=== PATIENT | male | born 1940 | race Caucasian/White ===

== ENCOUNTER 2022-10-22 12:22 | Outpatient (OUT) | payer MEDICARE, OTHER, SELFPAY ==
[2022-10-22 13:05] LABS: Estimated Average Glucose 128 mg/dL; Glycohemoglobin A1C 6.1 % (4.5-6.2)
== END 2022-10-22 12:23 ==
LOC: LAB 12:30
PROVIDERS: PCP Family Medicine; Visit Provider Family Medicine
DX: E11.29 Type 2 diabetes mellitus with other diabetic kidney complication (principal)
CPT/HCPCS: 36415; 83036

== ENCOUNTER 2022-12-21 13:23 | Emergency (ER) | payer MEDICARE, OTHER, SELFPAY ==
[2022-12-21 13:44] VITALS: BP 105/56; PULSE 81; RESP 14; TEMP 36.8; O2SAT 95; BMI 40.2
[2022-12-21 15:06] LABS: Bilirubin Urine NEGATIVE (NEGATIVE); Blood Urine NEGATIVE (NEGATIVE); Clarity Urine CLEAR (CLEAR); Color Urine YELLOW (YELLOW); Glucose Urine UA NEGATIVE (NEGATIVE); Ketones Urine NEGATIVE (NEGATIVE); Leukocyte Esterase Urine NEGATIVE (NEGATIVE); Nitrite Urine NEGATIVE (NEGATIVE); Protein Urine NEGATIVE (NEG/TRACE); Specific Gravity Urine 1.025 (1.005-1.025); Urine Microscopic Indicated NO; Urobilinogen Urine 0.2 EU/dL (0.2-1.0); pH Urine 5.5 (5.0-9.0)
--- NOTE | 2022-12-21 15:54 | ED.GENADUL1 ---
HPI - General Adult General Chief complaint: Back Pain/Injury Stated complaint: BACK PAIN Time Seen by Provider: 12/21/22 14:30 Source: patient Mode of arrival: walk-in Limitations: no limitations History of Present Illness HPI narrative: Patient is a 82-year-old male who is presenting with vague right lower back pain. This pain started this afternoon when patient was in the front yard trying to pull a hose across the yard for his . Pain developed then, patient states the pain is mild to right upper lumbar area. Patient says the pain feels better when he pushes on the muscle. Patient has no saddle anesthesia or cauda equina. Patient has no history kidney stones. Patient is not constipated. Patient has no rash. Patient has no history of abdominal aneurysm. No acute complaints. . All systems are negative except as noted/marked. All systems reviewed and otherwise negative. . Nurses note and vital signs reviewed and patient is not hypoxic. General: The patient appears well and in no apparent distress. Patient is resting comfortably on cart. Patient is not toxic, lethargic, or listless Skin: Warm, dry, no pallor noted. There is no rash noted. No petechiae, purpura. Head: Normocephalic, atraumatic Eye: Normal conjunctiva, no drainage, EOMI. PERRL Ears, Nose, Mouth, and Throat: oral mucosa is moist. Nares patent. Mouth without vesicles. Cardiovascular: Regular Rate and Rhythm, no murmur, gallop, rub Respiratory: Patient is in no distress, no accessory muscle use, lungs are clear to auscultation, no wheezing, rales or rhonchi Back: Mild reproducible tenderness to palpation to the right paralumbar area from L1-L3. No rash. No pain over right Piriformis muscle. Negative straight leg raising test on the rightleg, no signs of saddle anesthesia or cauda equina.non-tender, no CVA tenderness bilaterally to percussion. No CT LS midline pain GI: soft, no tenderness to palpation, no masses appreciated. No rebound, guarding, or rigidity noted. No flank pain bilateral, No distention Musculoskeletal: Patient has full range of motion of all of the extremities, no motor, sensory, or focal neurological deficits Neurological: A&O x3, normal speech Psychiatric: Cooperative Related Data Previous Rx's Medication Instructions Recorded methocarbamol 500 mg tablet 500 mg PO Q8H PRN muscle pain #10 12/21/22 tabs Allergies Allergy/AdvReac Type Severity Reaction Status Date / Time Sulfa (Sulfonamide Allergy Verified 12/21/22 13:44 Antibiotics) PFSH PFSH Social History Smoking status: Never smoker Exam Constitutional Vital Signs, click to edit/add: Last Vital Signs Temp 98.2 F 12/21/22 13:44 Pulse 81 12/21/22 13:44 Resp 14 12/21/22 13:44 BP 105/56 12/21/22 13:44 Pulse Ox 95 12/21/22 13:44 O2 Del Method Room Air 12/21/22 13:44 Course Vital Signs Vital signs: Vital Signs Temperature 98.2 F 12/21/22 13:44 Pulse Rate 81 12/21/22 13:44 Respiratory Rate 14 12/21/22 13:44 Blood Pressure 105/56 12/21/22 13:44 Pulse Oximetry 95 12/21/22 13:44 Oxygen Delivery Method Room Air 12/21/22 13:44 Temperature 98.2 F 12/21/22 13:44 Pulse Rate 81 12/21/22 13:44 Respiratory Rate 14 12/21/22 13:44 Blood Pressure 105/56 12/21/22 13:44 Pulse Oximetry 95 12/21/22 13:44 Oxygen Delivery Method Room Air 12/21/22 13:44 Medical Decision Making MDM Narrative Medical decision making narrative: Patient has evidence of most likely muscle pain to lumbar area. Education was done on using ice, stretching, and [id number] medication for pain. Patient was sent home with prescription for muuscle relaxer use if needed. Patient has no acute indication for testing at this time. Patient's is also a patient in the Emergency Room for left leg cellulitis. Aching to her about the patient, she stated that he heard a appointment hose across a yard when he is bending over in this is not Common action for him. Patient will follow-up with PCP and formal physical therapy if needed. No questions at discharge. Lab Data Labs: Lab Results 12/21/22 Range/Units 14:55 Urine Color Yellow (YELLOW) Urine Clarity Clear (CLEAR) Urine pH 5.5 (5.0-9.0) Ur Specific [place] 1.025 (1.005-1.025) Urine Protein Negative (NEG/TRACE) mg/dL Urine Glucose (UA) Negative (NEGATIVE) mg/dL Urine Ketones Negative (NEGATIVE) mg/dL Urine Occult Blood Negative (NEGATIVE) Urine Nitrite Negative (NEGATIVE) Urine Bilirubin Negative (NEGATIVE) Urine Urobilinogen 0.2 (0.2-1.0) EU/dL Ur Leukocyte Esterase Negative (NEGATIVE) Discharge Plan Discharge Chief Complaint: Back Pain/Injury Clinical Impression: Right lumbar pain Patient Disposition: Home, Self-Care Condition: Fair Prescriptions / Home Meds: New methocarbamol 500 mg tablet 500 mg PO Q8H PRN (Reason: muscle pain) Qty: 10 0RF Instructions: Lower Back Exercises (ED) Additional Instructions: Ice 20 minutes on, 20 minutes off. Perform lumbar stretching exercises 3 times a day. Follow-up with PCP if no improvement for physical therapy if needed. Stand Alone Forms: Portal Instructions Referrals: Michel Lang MD [Primary Care Provider] - 1 week Discharge Date/Time: 12/21/22 16:10
== END 2022-12-21 16:10 | disposition home or self-care (01) ==
PROVIDERS: Emergency Provider Emergency Medicine; PCP Family Medicine
DX: M54.50 Low back pain, unspecified (principal)
CPT/HCPCS: 81003; 99283

== ENCOUNTER 2023-02-26 11:19 | Outpatient (OUT) | payer MEDICARE, OTHER, SELFPAY ==
[2023-02-26 11:41] LABS: Basophils Absolute Auto 0.1 10^3/uL (0.0-0.1); Basophils Percent Auto 0.7 % (0.2-2.0); Eosinophils Absolute Auto 0.2 10^3/uL (0.0-0.7); Eosinophils Percent Auto 2.3 % (0.9-7.0); Hematocrit 38.6 % (42.0-54.0); Hemoglobin 12.9 g/dL (14.0-18.0); Immature Granulocytes Abs Auto 0.03 10^3/uL (0.00-0.03); Immature Granulocytes Pct Auto 0.4 % (0.0-0.5); Lymphocytes Percent Auto 14.2 % (20.5-60.0); Mean Corpuscular HGB Conc 33.4 g/dL (29.9-35.2); Mean Corpuscular Hemoglobin 32.3 pg (25.9-34.0); Mean Corpuscular Volume 96.7 fL (80.0-94.0); Mean Platelet Volume 9.1 fL (9.5-13.5); Monocytes Absolute Auto 0.5 10^3/uL (0.3-0.8); Monocytes Percent Auto 7.7 % (1.7-12.0); Neutrophils Absolute Auto 5.1 10^3/uL (1.4-6.5); Neutrophils Percent Auto 74.7 % (43.0-75.0); Platelet Count 177 10^3/uL (150-450); Red Blood Count 3.99 10^6/uL (4.70-6.10); Red Cell Distribution Width 13.5 % (11.0-15.0); White Blood Count 6.9 10^3/uL (4.0-11.0)
[2023-02-26 12:07] LABS: Albumin Level 3.1 g/dL (3.4-5.0); Anion Gap 9.3; BUN Creatinine Ratio 12.6; Calcium 8.6 mg/dL (8.5-10.1); Carbon Dioxide 27.9 mmol/L (21.0-32.0); Chloride 105 mmol/L (98-107); Estimated GFR (African America 48 (>=60); Estimated GFR (Non-African Ame 40 (>=60); Glucose 158 mg/dL (74-106); Phosphorus 3.5 mg/dL (2.6-4.7); Potassium 4.2 mmol/L (3.5-5.1); Sodium 138 mmol/L (136-145)
== END 2023-02-26 11:20 | disposition home or self-care (01) ==
LOC: LAB 11:24
PROVIDERS: PCP Family Medicine
DX: I12.9 Hypertensive chronic kidney disease with stage 1 through stage 4 chronic kidney disease, or unspecified chronic kidney disease (principal); N18.32 Chronic kidney disease, stage 3b; E11.22 Type 2 diabetes mellitus with diabetic chronic kidney disease
CPT/HCPCS: 36415; 80069; 85025

== ENCOUNTER 2023-03-05 13:35 | Outpatient (OUT) | payer MEDICARE, OTHER, SELFPAY ==
[2023-03-05 14:15] LABS: Bilirubin Urine NEGATIVE (NEGATIVE); Blood Urine NEGATIVE (NEGATIVE); Clarity Urine CLEAR (CLEAR); Color Urine LT. YELLOW (YELLOW); Glucose Urine UA NEGATIVE (NEGATIVE); Ketones Urine NEGATIVE (NEGATIVE); Leukocyte Esterase Urine NEGATIVE (NEGATIVE); Nitrite Urine NEGATIVE (NEGATIVE); Protein Urine NEGATIVE (NEG/TRACE); Urobilinogen Urine 0.2 EU/dL (0.2-1.0)
[2023-03-05 14:22] LABS: Creatinine Urine Random 50.55 mg/dL (20.00-300.00); Microalbum Creatinine Ratio Ur 25.7 mg/g (0.0-29.9); Microalbumin Urine Random <1.3 mg/dL (<=30.0); Protein Creatinine Ratio Urine 0.12; Total Protein Urine Random <6.0 mg/dL (<=11.9)
== END 2023-03-05 13:36 | disposition home or self-care (01) ==
PROVIDERS: PCP Family Medicine
DX: N18.30 Chronic kidney disease, stage 3 unspecified (principal)
CPT/HCPCS: 81003; 82043; 82570; 84156

== ENCOUNTER 2023-07-09 11:30 | Emergency (ER) | payer MEDICARE, OTHER, SELFPAY ==
[2023-07-09 11:37] VITALS: BP 129/82; PULSE 75; RESP 18; TEMP 37.1; O2SAT 96; BMI 33.6
--- NOTE | 2023-07-09 11:46 | XR_ITS ---
The [address] [address] Patient Name: SAMPSON TAYLOR MRN: [id number] date: 1940 Sex: M Assigned Patient Location: ER Current Patient Location: ER Accession/Order Number: [id number] Exam Date: 07/09/2023 12:00 Report Date: 07/09/2023 12:25 At the request of: TONY AZEVEDO Procedure: XR chest 1V EXAMINATION: XR chest 1V HISTORY: cough , congestion COMPARISON: XR abdomen with PA chest 07/20/2022 FINDINGS: LUNGS: No significant pulmonary parenchymal abnormalities. Chronic calcified left hilar lymph node. VASCULATURE: No increased pulmonary vasculature. PLEURA: No pneumothorax, effusion, or pleural thickening. CARDIAC: No cardiomegaly or cardiac silhouette abnormality. MEDIASTINUM: No visible mass or adenopathy. BONES: No fracture or visible bone lesion. OTHER: Stable cardiac pacer and prior sternotomy. XR/XR chest 1V IMPRESSION: 1. No acute cardiopulmonary process. Stable chest. Electronically authenticated by: ANAYA ARREGUIN Date: 07/09/2023 12:25
[2023-07-09 12:16] LABS: Basophils Percent Auto 0.6 % (0.2-2.0); Eosinophils Absolute Auto 0.3 10^3/uL (0.0-0.7); Eosinophils Percent Auto 3.6 % (0.9-7.0); Hematocrit 40.1 % (42.0-54.0); Hemoglobin 13.1 g/dL (14.0-18.0); Immature Granulocytes Abs Auto 0.03 10^3/uL (0.00-0.03); Immature Granulocytes Pct Auto 0.4 % (0.0-0.5); Lymphocytes Absolute Auto 0.6 10^3/uL (1.2-3.8); Lymphocytes Percent Auto 8.3 % (20.5-60.0); Mean Corpuscular HGB Conc 32.7 g/dL (29.9-35.2); Mean Corpuscular Hemoglobin 31.4 pg (25.9-34.0); Mean Corpuscular Volume 96.2 fL (80.0-94.0); Mean Platelet Volume 9.3 fL (9.5-13.5); Monocytes Absolute Auto 0.7 10^3/uL (0.3-0.8); Monocytes Percent Auto 10.4 % (1.7-12.0); Neutrophils Absolute Auto 5.4 10^3/uL (1.4-6.5); Neutrophils Percent Auto 76.7 % (43.0-75.0); Platelet Count 145 10^3/uL (150-450); Red Blood Count 4.17 10^6/uL (4.70-6.10); Red Cell Distribution Width 13.7 % (11.0-15.0)
[2023-07-09 12:36] LABS: Alanine Aminotransferase 19 U/L (16-63); Albumin Globulin Ratio 0.8; Albumin Level 2.9 g/dL (3.4-5.0); Alkaline Phosphatase 133 U/L (46-116); Anion Gap 10.9; Aspartate Amino Transferase 19 U/L (15-37); Bilirubin Total 0.5 mg/dL (0.2-1.0); Calcium 8.6 mg/dL (8.5-10.1); Carbon Dioxide 30.2 mmol/L (21.0-32.0); Chloride 107 mmol/L (98-107); Estimated GFR (African America 56 (>=60); Estimated GFR (Non-African Ame 46 (>=60); Globulin 3.7 g/dL; Glucose 117 mg/dL (74-106); Potassium 4.1 mmol/L (3.5-5.1); Sodium 144 mmol/L (136-145); Total Protein 6.6 g/dL (6.4-8.2)
[2023-07-09 12:39] LABS: Troponin I High Sensitivity 14.1 pg/mL (4.0-76.1)
[2023-07-09 12:43] LABS: Influenza Virus A Antigen Negative; Influenza Virus B Antigen Negative; Internal Control Within Normal Limits
[2023-07-09 12:45] LABS: Internal Control Within Normal Limits; Respiratory Syncytial Virus Detected (NOT DETECTE)
--- NOTE | 2023-07-09 13:00 | ED.GENADUL1 ---
HPI - General Adult General Chief complaint: Upper Respiratory Infection Stated complaint: COUGH, CONGESTION Time Seen by Provider: 07/09/23 11:46 Source: patient Mode of arrival: walk-in History of Present Illness HPI narrative: This patient is here with his . She is the primary historian as this patient has very early and mild dementia. She is here to get checked out because little bit of sore throat and mild congestion. She says he has a runny nose. She has not noticed any difficulty breathing or shortness of breath severe cough or wheezing are all negative. He is up-to-date on COVID vaccinations. He has not not had nausea vomiting or diarrhea. His appetites been good activity levels been the same as usual. He is not complaining any chest pain or difficulty breathing. His vital signs are stable and he is afebrile here. He has not had any problems or symptoms with urination. He has not run a fever. He is on any antibiotics. She just want to check to make sure there is nothing serious today. Related Data Home Medications Medication Instructions Recorded Confirmed apixaban 2.5 mg tablet (Eliquis) 2.5 mg PO Q12H 07/09/23 07/09/23 atorvastatin 40 mg tablet 40 mg PO Q24H 07/09/23 07/09/23 furosemide 20 mg tablet 20 mg PO Q12H 07/09/23 07/09/23 gabapentin 300 mg capsule 300 mg PO Q12H 07/09/23 07/09/23 glimepiride 4 mg tablet 4 mg PO Q24H 07/09/23 07/09/23 isosorbide mononitrate 30 mg 30 mg PO Q24H 07/09/23 07/09/23 tablet,extended release 24 hr lisinopril 5 mg tablet 2.5 mg PO Q24H 07/09/23 07/09/23 metoprolol succinate 50 mg 50 mg PO Q24H 07/09/23 07/09/23 tablet,extended release 24 hr nitroglycerin 0.4 mg sublingual 0.4 mg sublingual PRN 07/09/23 07/09/23 tablet spironolactone 25 mg tablet 12.5 mg PO Q24H 07/09/23 07/09/23 tamsulosin 0.4 mg capsule 0.4 mg PO Q24H 07/09/23 07/09/23 Allergies Allergy/AdvReac Type Severity Reaction Status Date / Time Sulfa (Sulfonamide Allergy Verified 12/21/22 13:44 Antibiotics) PFSH PFS Social History Smoking status: Never smoker Exam Narrative Exam Narrative: Very pleasant awake alert oriented x 3. Subtle changes in cognition are noted. HEENT shows no pharyngitis. He has no conjunctivitis. There is no facial swelling. Lungs were clear with no wheeze rales rhonchi cough or congestion. Heart rate and rhythm are normal with no murmur or arrhythmia during auscultation. Abdomen is benign he has no abdominal discomfort. Legs and extremities show no evidence of peripheral edema phlebitis swelling or tenderness. Does not have any pain in his back area. Neurological he has no lateralizing neurological symptoms or deficit on the examination. Constitutional Vital Signs, click to edit/add: Last Vital Signs Temp 98.7 F 07/09/23 11:37 Pulse 75 07/09/23 11:37 Resp 18 07/09/23 11:37 BP 129/82 07/09/23 11:37 Pulse Ox 96 07/09/23 11:37 O2 Del Method Room Air 07/09/23 11:37 Course Vital Signs Vital signs: Vital Signs Temperature 98.7 F 07/09/23 11:37 Pulse Rate 75 07/09/23 11:37 Respiratory Rate 18 07/09/23 11:37 Blood Pressure 129/82 07/09/23 11:37 Pulse Oximetry 96 07/09/23 11:37 Oxygen Delivery Method Room Air 07/09/23 11:37 Temperature 98.7 F 07/09/23 11:37 Pulse Rate 75 07/09/23 11:37 Respiratory Rate 18 07/09/23 11:37 Blood Pressure 129/82 07/09/23 11:37 Pulse Oximetry 96 07/09/23 11:37 Oxygen Delivery Method Room Air 07/09/23 11:37 Medical Decision Making MDM Narrative Medical decision making narrative: Patient's chest x-ray does not show any acute findings. Laboratory testing essentially unremarkable. 1 positive finding is positive for RSV. His vital signs are stable and there is no respiratory distress and his pulse oximetry is normal. I do not believe he needs hospitalization at this time. All these findings will be discussed with his mentation Lungs: Including close follow-up will be discussed Lab Data Labs: Lab Results 07/09/23 07/09/23 Range/Units 12:00 12:20 WBC 7.0 (4.0-11.0) 10^3/uL RBC 4.17 L (4.70-6.10) 10^6/uL Hgb 13.1 L (14.0-18.0) g/dL Hct 40.1 L (42.0-54.0) % MCV 96.2 H (80.0-94.0) fL MCH 31.4 (25.9-34.0) pg MCHC 32.7 (29.9-35.2) g/dL RDW 13.7 (11.0-15.0) % Plt Count 145 L (150-450) 10^3/uL MPV 9.3 L (9.5-13.5) fL Neut % (Auto) 76.7 H (43.0-75.0) % Lymph % (Auto) 8.3 L (20.5-60.0) % Mcdonald % (Auto) 10.4 (1.7-12.0) % Eos % (Auto) 3.6 (0.9-7.0) % Baso % (Auto) 0.6 (0.2-2.0) % Neut # (Auto) 5.4 (1.4-6.5) 10^3/uL Lymph # (Auto) 0.6 L (1.2-3.8) 10^3/uL Mcdonald # (Auto) 0.7 (0.3-0.8) 10^3/uL Eos # (Auto) 0.3 (0.0-0.7) 10^3/uL Baso # (Auto) 0.0 (0.0-0.1) 10^3/uL Abs Immat Gran (auto) 0.03 (0.00-0.03) 10^3/uL Imm/Tot Granulo (auto) 0.4 (0.0-0.5) % Sodium 144 (136-145) mmol/L Potassium 4.1 (3.5-5.1) mmol/L Chloride 107 (98-107) mmol/L Carbon Dioxide 30.2 (21.0-32.0) mmol/L Anion Gap 10.9 BUN 19.0 H (7.0-18.0) mg/dL Creatinine 1.46 H (0.70-1.30) mg/dL Est GFR ( Amer) 56 L (>=60) Est GFR (Non-Af Amer) 46 L (>=60) BUN/Creatinine Ratio 13.0 Glucose 117 H (74-106) mg/dL Calcium 8.6 (8.5-10.1) mg/dL Total Bilirubin 0.5 (0.2-1.0) mg/dL AST 19 (15-37) U/L ALT 19 (16-63) U/L Alkaline Phosphatase 133 H (46-116) U/L Troponin I High Sens 14.1 (4.0-76.1) pg/mL Total Protein 6.6 (6.4-8.2) g/dL Albumin 2.9 L (3.4-5.0) g/dL Globulin 3.7 g/dL Albumin/Globulin Ratio 0.8 Influenza Type A Ag Negative Influenza Type B Ag Negative RSV Antigen Detected A* (NOT DETECTE) Discharge Plan Discharge Chief Complaint: Upper Respiratory Infection Clinical Impression: Respiratory syncytial virus (RSV) Patient Disposition: Home, Self-Care Time of Disposition Decision: 13:03 Prescriptions / Home Meds: No Action Eliquis 2.5 mg tablet 2.5 mg PO Q12H furosemide 20 mg tablet 20 mg PO Q12H gabapentin 300 mg capsule 300 mg PO Q12H glimepiride 4 mg tablet 4 mg PO Q24H lisinopril 5 mg tablet 2.5 mg PO Q24H atorvastatin 40 mg tablet 40 mg PO Q24H tamsulosin 0.4 mg capsule 0.4 mg PO Q24H isosorbide mononitrate 30 mg tablet extended release 24 hr 30 mg PO Q24H nitroglycerin 0.4 mg tablet, sublingual 0.4 mg sublingual PRN Rx Instructions: do not exceed 3 doses per episode spironolactone 25 mg tablet 12.5 mg PO Q24H metoprolol succinate 50 mg tablet extended release 24 hr 50 mg PO Q24H Additional Instructions: Continue present medication. Return if your oxygen decreases or you have difficulty breathing Stand Alone Forms: Portal Instructions Referrals: Michel Lang MD [Primary Care Provider] - 1 week
[2023-07-09 13:11] LABS: SARS-CoV-2 Ag NEGATIVE (NEGATIVE)
[2023-07-09 13:25] VITALS: BP 147/80; PULSE 72; RESP 14; O2SAT 97
== END 2023-07-09 13:29 | disposition home or self-care (01) ==
PROVIDERS: Emergency Provider Emergency Medicine Emergency Medical Services; PCP Family Medicine
DX: J06.9 Acute upper respiratory infection, unspecified (principal); B97.4 Respiratory syncytial virus as the cause of diseases classified elsewhere; F03.A0 Unspecified dementia, mild, without behavioral disturbance, psychotic disturbance, mood disturbance, and anxiety; Z79.899 Other long term (current) drug therapy
CPT/HCPCS: 36415; 71045; 80053; 84484; 85025; 87420; 87804; 87811; 99284

== ENCOUNTER 2023-08-27 11:37 | Outpatient (OUT) | payer MEDICARE, OTHER, SELFPAY ==
[2023-08-27 12:29] LABS: Basophils Percent Auto 0.4 % (0.2-2.0); Eosinophils Absolute Auto 0.2 10^3/uL (0.0-0.7); Hematocrit 42.1 % (42.0-54.0); Hemoglobin 13.7 g/dL (14.0-18.0); Immature Granulocytes Abs Auto 0.02 10^3/uL (0.00-0.03); Immature Granulocytes Pct Auto 0.3 % (0.0-0.5); Lymphocytes Absolute Auto 1.2 10^3/uL (1.2-3.8); Lymphocytes Percent Auto 15.6 % (20.5-60.0); Mean Corpuscular HGB Conc 32.5 g/dL (29.9-35.2); Mean Corpuscular Hemoglobin 31.2 pg (25.9-34.0); Mean Corpuscular Volume 95.9 fL (80.0-94.0); Mean Platelet Volume 9.5 fL (9.5-13.5); Monocytes Absolute Auto 0.6 10^3/uL (0.3-0.8); Monocytes Percent Auto 7.3 % (1.7-12.0); Neutrophils Absolute Auto 5.7 10^3/uL (1.4-6.5); Neutrophils Percent Auto 74.4 % (43.0-75.0); Platelet Count 194 10^3/uL (150-450); Red Blood Count 4.39 10^6/uL (4.70-6.10); Red Cell Distribution Width 13.6 % (11.0-15.0); White Blood Count 7.7 10^3/uL (4.0-11.0)
[2023-08-27 12:40] LABS: Estimated Average Glucose 126 mg/dL
[2023-08-27 14:07] LABS: Anion Gap 12.2; BUN Creatinine Ratio 17.4; Carbon Dioxide 28.2 mmol/L (21.0-32.0); Chloride 105 mmol/L (98-107); Estimated GFR (African America 48 (>=60); Estimated GFR (Non-African Ame 40 (>=60); Glucose 132 mg/dL (74-106); Potassium 4.4 mmol/L (3.5-5.1); Sodium 141 mmol/L (136-145)
[2023-08-27 14:08] LABS: Alanine Aminotransferase 25 U/L (16-63); Albumin Globulin Ratio 0.9; Albumin Level 3.3 g/dL (3.4-5.0); Alkaline Phosphatase 119 U/L (46-116); Aspartate Amino Transferase 21 U/L (15-37); Bilirubin Direct 0.1 mg/dL (0.0-0.2); Bilirubin Total 0.6 mg/dL (0.2-1.0); Calcium 9.5 mg/dL (8.5-10.1); Chol HDL Ratio 2.9; Cholesterol 123 mg/dL (<=200); Globulin 3.8 g/dL; HDL Cholesterol 42 mg/dL (40-60); LDL Cholesterol Calculated 61.6 mg/dL; Thyroid Stimulating Hormone 3.869 uIU/mL (0.358-3.740); Total Protein 7.1 g/dL (6.4-8.2); Triglycerides 97 mg/dL (<=150); VLDL CHOLESTEROL 19.4 mg/dL
[2023-08-27 14:33] LABS: Prostate Specific Antigen Scrn 0.95 ng/mL (<=4.00)
== END 2023-08-27 11:38 | disposition home or self-care (01) ==
LOC: LAB 11:39
PROVIDERS: PCP Family Medicine; Visit Provider Family Medicine
DX: I12.9 Hypertensive chronic kidney disease with stage 1 through stage 4 chronic kidney disease, or unspecified chronic kidney disease (principal); N18.30 Chronic kidney disease, stage 3 unspecified; E11.29 Type 2 diabetes mellitus with other diabetic kidney complication; Z79.899 Other long term (current) drug therapy; E78.5 Hyperlipidemia, unspecified; Z12.5 Encounter for screening for malignant neoplasm of prostate; E66.9 Obesity, unspecified
CPT/HCPCS: 36415; 80048; 80061; 80076; 81003; 82042; 82043; 82570; 83036; 84100; 84443; 85025; G0103

== ENCOUNTER 2023-08-27 11:40 | Outpatient (OUT) | payer MEDICARE, OTHER, SELFPAY ==
[2023-08-27 12:55] LABS: Bilirubin Urine NEGATIVE (NEGATIVE); Blood Urine NEGATIVE (NEGATIVE); Clarity Urine CLEAR (CLEAR); Color Urine YELLOW (YELLOW); Glucose Urine UA NEGATIVE (NEGATIVE); Ketones Urine TRACE mg/dL (NEGATIVE); Leukocyte Esterase Urine TRACE (NEGATIVE); Nitrite Urine NEGATIVE (NEGATIVE); Protein Urine NEGATIVE (NEG/TRACE); Urobilinogen Urine 0.2 EU/dL (0.2-1.0); pH Urine 5.5 (5.0-9.0)
[2023-08-27 13:21] LABS: Creatinine Urine Random 222.21 mg/dL (20.00-300.00); Microalbum Creatinine Ratio Ur 6.7 mg/g (0.0-29.9); Microalbumin Urine Random 1.5 mg/dL (<=30.0)
[2023-08-27 13:22] LABS: Albumin Level 3.2 g/dL (3.4-5.0); Phosphorus 4.1 mg/dL (2.6-4.7)
== END 2023-08-27 11:41 | disposition home or self-care (01) ==
LOC: LAB 11:42
PROVIDERS: PCP Family Medicine
DX: N18.30 Chronic kidney disease, stage 3 unspecified (principal)
CPT/HCPCS: 36415; 81003; 82042; 82043; 82570; 84100

== ENCOUNTER 2023-10-26 20:10 | Emergency (ER) | payer MEDICARE, OTHER, SELFPAY ==
--- NOTE | 2023-10-26 20:16 | CT_ITS ---
[address] [address] Patient Name: SAMPSON TAYLOR MRN: [id number] date: 1940 Sex: M Assigned Patient Location: ER Current Patient Location: ED.MAIN Accession/Order Number: [id number] Exam Date: 10/26/2023 21:27 Report Date: 10/26/2023 23:05 At the request of: WILLIAM MOHR Procedure: CT abdomen pelvis wo con EXAMINATION: CT abdomen pelvis wo con REASON FOR EXAM: Rectal bleeding COMPARISON: 03/10/2022 FINDINGS: Lung bases: No nodule, infiltrate, or effusion. Abdominal findings: Small hiatal hernia. No dilatation or thickening of stomach, duodenum, or small bowel. There is stool in the colon but no evidence of colitis or bowel obstruction. There is diverticulosis of the left colon. No diverticulitis. No free air or ascites. Small periumbilical hernia contains fat. There are gallstones without cholecystitis suggested. No significant enlargement of liver or spleen. No pancreatitis. The adrenal glands are normal. No urolithiasis or hydronephrosis. There is calcification of the abdominal aorta but normal caliber of the abdominal aorta. No adenopathy or hemorrhage in the retroperitoneum Pelvic findings: There is mild prostatomegaly. No distention of the urinary bladder. No adenopathy in the pelvis or inguinal regions. CT/CT abdomen pelvis wo con IMPRESSION: 1. Diverticulosis of the left colon without diverticulitis. 2. No enteritis or colitis. 3. No intestinal perforation. 4. Gallstones without cholecystitis. 5. No other acute inflammatory process in the abdomen or pelvis. 6. Prostatomegaly without evidence for urinary retention. Electronically authenticated by: YORDAN COLEMAN Date: 10/26/2023 23:05
[2023-10-26 20:17] VITALS: BP 119/56; PULSE 70; TEMP 36.8; O2SAT 98; BMI 27.1
--- NOTE | 2023-10-26 20:17 | ED.GENADUL1 ---
Documented by User: MCKENNA Martinez 10/26/23 22:27 HPI HPI - General Adult General Chief complaint: GI Bleed Stated complaint: rectal bleeding Time Seen by Provider: 10/26/23 20:16 History of Present Illness HPI narrative: Patient is an 83-year-old male who presents to the emergency department by ambulance for evaluation of rectal bleeding that began yesterday. He states he noticed red blood with a bowel movement. He has had no other focal medical complaints. Patient was under the impression that he was not taking any blood thinners but admits to taking the Eliquis that is on his medication list. He has not passed any clots. He has no abdominal pain, dizziness. He believes he has had a colonoscopy at [facility]. EMS noted blood in the toilet after the patient wiped after a bowel movement. Related Data Home Medications ?Medication ?Instructions ?Recorded ?Confirmed apixaban 2.5 mg tablet (Eliquis) 2.5 mg PO Q12H 07/09/23 07/09/23 atorvastatin 40 mg tablet 40 mg PO Q24H 07/09/23 07/09/23 furosemide 20 mg tablet 20 mg PO Q12H 07/09/23 07/09/23 gabapentin 300 mg capsule 300 mg PO Q12H 07/09/23 07/09/23 glimepiride 4 mg tablet 4 mg PO Q24H 07/09/23 07/09/23 isosorbide mononitrate 30 mg 30 mg PO Q24H 07/09/23 07/09/23 tablet,extended release 24 hr lisinopril 5 mg tablet 2.5 mg PO Q24H 07/09/23 07/09/23 metoprolol succinate 50 mg 50 mg PO Q24H 07/09/23 07/09/23 tablet,extended release 24 hr nitroglycerin 0.4 mg sublingual 0.4 mg sublingual PRN 07/09/23 07/09/23 tablet spironolactone 25 mg tablet 12.5 mg PO Q24H 07/09/23 07/09/23 tamsulosin 0.4 mg capsule 0.4 mg PO Q24H 07/09/23 07/09/23 Previous Rx's ?Medication ?Instructions ?Recorded hydrocortisone-pramoxine 1 %-1 % 1 applic MA TID #30 grams 10/26/23 rectal cream Allergies Allergy/AdvReac Type Severity Reaction Status Date / Time Sulfa (Sulfonamide Allergy Verified 10/26/23 20:21 Antibiotics) Opioid HPI Opioid Management Most Recent Opioid Data: No Data to Display Review of Systems ROS Constitutional Denies: fever or chills Ears, nose, mouth, and throat Denies: throat pain or nasal congestion Respiratory Denies: shortness of breath Gastrointestinal Denies: abdominal pain, nausea or vomiting Genitourinary Denies: painful urination Musculoskeletal Denies: back pain Integumentary/Breast Denies: rash Hematologic/Lymphatic Reports: easy bruising and easy [facility] Social History Smoking status: Never smoker Exam Narrative Exam Narrative: Gen.: Awake, alert, in no distress Head: Normocephalic, atraumatic ENT: Moist mucous membranes Respiratory: No respiratory distress, lungs clear bilaterally Cardio: Regular rate and rhythm Gastrointestinal: Abdomen is soft, nondistended and nontender to palpation Rectal: Rectal exam performed with Alice Rowley RN at bedside throughout the duration of the exam. Small hemorrhoid noted at the opening of the rectum, dried blood noted with no active hemorrhage. No fissures noted. No thrombosis of the hemorrhoid Extremities: Moves extremities equally Psych: Normal mood and affect Neuro: No focal neuro deficit Skin: Warm, dry, intact Constitutional Vital Signs, click to edit/add: Last Vital Signs Temp 98.2 F 10/26/23 20:17 Pulse 71 10/26/23 22:55 Resp 18 10/26/23 22:55 BP 107/66 10/26/23 22:55 Pulse Ox 96 10/26/23 22:55 O2 Del Method Room Air 10/26/23 22:55 Course Vital Signs Vital signs: Vital Signs Temperature 98.2 F 10/26/23 20:17 Pulse Rate 70 10/26/23 20:17 Respiratory Rate 16 10/26/23 20:17 Blood Pressure 119/56 10/26/23 20:17 Pulse Oximetry 98 10/26/23 20:17 Oxygen Delivery Method Room Air 10/26/23 20:17 Temperature 98.2 F 10/26/23 20:17 Pulse Rate 71 10/26/23 22:55 Respiratory Rate 18 10/26/23 22:55 Blood Pressure 107/66 10/26/23 22:55 Pulse Oximetry 96 10/26/23 22:55 Oxygen Delivery Method Room Air 10/26/23 22:55 Medical Decision Making MDM Narrative Medical decision making narrative: 2225: Physical exam with external hemorrhoid, no active hemorrhage in the ER. Patient is on Plavix and Eliquis. His vital signs are stable, he has no other focal medical complaints. Hemoglobin is stable and CT is pending at this time. Case turned over to attending physician at this time. Medical Records Medical records reviewed: Yes I reviewed the patient's medical records Lab Data Lab results reviewed: Yes I reviewed the patient's lab results Labs: Lab Results 10/26/23 Range/Units 20:32 WBC 8.7 (4.0-11.0) 10^3/uL RBC 3.87 L (4.70-6.10) 10^6/uL Hgb 12.3 L (14.0-18.0) g/dL Hct 36.8 L (42.0-54.0) % MCV 95.1 H (80.0-94.0) fL MCH 31.8 (25.9-34.0) pg MCHC 33.4 (29.9-35.2) g/dL RDW 13.9 (11.0-15.0) % Plt Count 189 (150-450) 10^3/uL MPV 9.3 L (9.5-13.5) fL Neut % (Auto) 71.8 (43.0-75.0) % Lymph % (Auto) 16.2 L (20.5-60.0) % [place] % (Auto) 8.6 (1.7-12.0) % Eos % (Auto) 2.3 (0.9-7.0) % Baso % (Auto) 0.6 (0.2-2.0) % Neut # (Auto) 6.2 (1.4-6.5) 10^3/uL Lymph # (Auto) 1.4 (1.2-3.8) 10^3/uL [place] # (Auto) 0.8 (0.3-0.8) 10^3/uL Eos # (Auto) 0.2 (0.0-0.7) 10^3/uL Baso # (Auto) 0.1 (0.0-0.1) 10^3/uL Abs Immat Gran (auto) 0.04 H (0.00-0.03) 10^3/uL Imm/Tot Granulo (auto) 0.5 (0.0-0.5) % PT 11.0 (9.0-11.6) sec INR 1.04 Sodium 140 (136-145) mmol/L Potassium 4.3 (3.5-5.1) mmol/L Chloride 105 (98-107) mmol/L Carbon Dioxide 28.7 (21.0-32.0) mmol/L Anion Gap 10.6 BUN 28.0 H (7.0-18.0) mg/dL Creatinine 1.78 H (0.70-1.30) mg/dL Est GFR ( Amer) 45 L (>=60) Est GFR (Non-Af Amer) 37 L (>=60) BUN/Creatinine Ratio 15.7 Glucose 100 (74-106) mg/dL Calcium 8.7 (8.5-10.1) mg/dL Imaging Data CT scan - abdomen: Radiologist's impression: ITS Impressions Abdomen/Pelvis CT 10/26/23 20:16 IMPRESSION: 1. Diverticulosis of the left colon without diverticulitis. 2. No enteritis or colitis. 3. No intestinal perforation. 4. Gallstones without cholecystitis. 5. No other acute inflammatory process in the abdomen or pelvis. 6. Prostatomegaly without evidence for urinary retention. Electronically authenticated by: YORDAN COLEMAN Date: 10/26/2023 23:02 Discharge Plan Discharge Stand Alone Forms: Portal Instructions Chief Complaint: GI Bleed Clinical Impression: External hemorrhoid Patient Disposition: Home, Self-Care Time of Disposition Decision: 23:05 Condition: Good Mode of Transportation: Private Vehicle Prescriptions / Home Meds: New hydrocortisone-pramoxine 1-1 % cream 1 applic MA TID Qty: 30 0RF No Action Eliquis 2.5 mg tablet 2.5 mg PO Q12H furosemide 20 mg tablet 20 mg PO Q12H gabapentin 300 mg capsule 300 mg PO Q12H glimepiride 4 mg tablet 4 mg PO Q24H lisinopril 5 mg tablet 2.5 mg PO Q24H atorvastatin 40 mg tablet 40 mg PO Q24H tamsulosin 0.4 mg capsule 0.4 mg PO Q24H isosorbide mononitrate 30 mg tablet extended release 24 hr 30 mg PO Q24H nitroglycerin 0.4 mg tablet, sublingual 0.4 mg sublingual PRN Rx Instructions: do not exceed 3 doses per episode spironolactone 25 mg tablet 12.5 mg PO Q24H metoprolol succinate 50 mg tablet extended release 24 hr 50 mg PO Q24H Print Language: Nigerien Instructions: Hemorrhoids (ED) Additional Instructions: Colace twice a day Referrals: Michel Lang MD [Primary Care Provider] - 1 week Documented by User: Henrik Guevara MD 10/26/23 23:08 HPI HPI - General Adult General Chief complaint: GI Bleed Stated complaint: rectal bleeding Time Seen by Provider: 10/26/23 20:16 Related Data Home Medications ?Medication ?Instructions ?Recorded ?Confirmed apixaban 2.5 mg tablet (Eliquis) 2.5 mg PO Q12H 07/09/23 07/09/23 atorvastatin 40 mg tablet 40 mg PO Q24H 07/09/23 07/09/23 furosemide 20 mg tablet 20 mg PO Q12H 07/09/23 07/09/23 gabapentin 300 mg capsule 300 mg PO Q12H 07/09/23 07/09/23 glimepiride 4 mg tablet 4 mg PO Q24H 07/09/23 07/09/23 isosorbide mononitrate 30 mg 30 mg PO Q24H 07/09/23 07/09/23 tablet,extended release 24 hr lisinopril 5 mg tablet 2.5 mg PO Q24H 07/09/23 07/09/23 metoprolol succinate 50 mg 50 mg PO Q24H 07/09/23 07/09/23 tablet,extended release 24 hr nitroglycerin 0.4 mg sublingual 0.4 mg sublingual PRN 07/09/23 07/09/23 tablet spironolactone 25 mg tablet 12.5 mg PO Q24H 07/09/23 07/09/23 tamsulosin 0.4 mg capsule 0.4 mg PO Q24H 07/09/23 07/09/23 Previous Rx's ?Medication ?Instructions ?Recorded hydrocortisone-pramoxine 1 %-1 % 1 applic MA TID #30 grams 10/26/23 rectal cream Allergies Allergy/AdvReac Type Severity Reaction Status Date / Time Sulfa (Sulfonamide Allergy Verified 10/26/23 20:21 Antibiotics) Opioid HPI Opioid Management Most Recent Opioid Data: No Data to Display [facility] Social History Smoking status: Never smoker Exam Constitutional Vital Signs, click to edit/add: Last Vital Signs Temp 98.2 F 10/26/23 20:17 Pulse 71 10/26/23 22:55 Resp 18 10/26/23 22:55 BP 107/66 10/26/23 22:55 Pulse Ox 96 10/26/23 22:55 O2 Del Method Room Air 10/26/23 22:55 Course Vital Signs Vital signs: Vital Signs Temperature 98.2 F 10/26/23 20:17 Pulse Rate 70 10/26/23 20:17 Respiratory Rate 16 10/26/23 20:17 Blood Pressure 119/56 10/26/23 20:17 Pulse Oximetry 98 10/26/23 20:17 Oxygen Delivery Method Room Air 10/26/23 20:17 Temperature 98.2 F 10/26/23 20:17 Pulse Rate 71 10/26/23 22:55 Respiratory Rate 18 10/26/23 22:55 Blood Pressure 107/66 10/26/23 22:55 Pulse Oximetry 96 10/26/23 22:55 Oxygen Delivery Method Room Air 10/26/23 22:55 Medical Decision Making [facility] Narrative Medical decision making narrative: 2225: Physical exam with external hemorrhoid, no active hemorrhage in the ER. Patient is on Plavix and Eliquis. His vital signs are stable, he has no other focal medical complaints. Hemoglobin is stable and CT is pending at this time. Case turned over to attending physician at this time. JK 11:[address] scan shows no acute findings. He is prescribed ProctoCream and is referred to surgery for follow-up if needed. He also will take Colace twice a day. Treatment diagnosis and follow-up were discussed with the patient and his family. Differential Diagnosis Differential Diagnosis: Internal hemorrhoid, external hemorrhoid, diverticulitis Lab Data Lab results reviewed: Yes I reviewed the patient's lab results Labs: Lab Results 10/26/23 Range/Units 20:32 WBC 8.7 (4.0-11.0) 10^3/uL RBC 3.87 L (4.70-6.10) 10^6/uL Hgb 12.3 L (14.0-18.0) g/dL Hct 36.8 L (42.0-54.0) % MCV 95.1 H (80.0-94.0) fL MCH 31.8 (25.9-34.0) pg MCHC 33.4 (29.9-35.2) g/dL RDW 13.9 (11.0-15.0) % Plt Count 189 (150-450) 10^3/uL MPV 9.3 L (9.5-13.5) fL Neut % (Auto) 71.8 (43.0-75.0) % Lymph % (Auto) 16.2 L (20.5-60.0) % [place] % (Auto) 8.6 (1.7-12.0) % Eos % (Auto) 2.3 (0.9-7.0) % Baso % (Auto) 0.6 (0.2-2.0) % Neut # (Auto) 6.2 (1.4-6.5) 10^3/uL Lymph # (Auto) 1.4 (1.2-3.8) 10^3/uL [place] # (Auto) 0.8 (0.3-0.8) 10^3/uL Eos # (Auto) 0.2 (0.0-0.7) 10^3/uL Baso # (Auto) 0.1 (0.0-0.1) 10^3/uL Abs Immat Gran (auto) 0.04 H (0.00-0.03) 10^3/uL Imm/Tot Granulo (auto) 0.5 (0.0-0.5) % PT 11.0 (9.0-11.6) sec INR 1.04 Sodium 140 (136-145) mmol/L Potassium 4.3 (3.5-5.1) mmol/L Chloride 105 (98-107) mmol/L Carbon Dioxide 28.7 (21.0-32.0) mmol/L Anion Gap 10.6 BUN 28.0 H (7.0-18.0) mg/dL Creatinine 1.78 H (0.70-1.30) mg/dL Est GFR ( Amer) 45 L (>=60) Est GFR (Non-Af Amer) 37 L (>=60) BUN/Creatinine Ratio 15.7 Glucose 100 (74-106) mg/dL Calcium 8.7 (8.5-10.1) mg/dL Imaging Data CT scan - abdomen: Radiologist's impression: ITS Impressions Abdomen/Pelvis CT 10/26/23 20:16
--- OUTSIDE RECORDS SUMMARY | 2023-10-26 20:20 | XMS_ITS ---
Patient Summarization (C-CDA 2.1 CCD) Created on: October 26, 2023 MR. JUNIOR TAYLOR : 1940 Sex: Male Author Organization Sample organization Care Team Providers Care Finance Director Name Role Phone Simon Souza Unavailable Michel Alcazar Primary Care Provider Daniel BROCK, Lakesha Hugo Unavailable MISC, DR ESPINO Consulting Unavailable NADERER, DR MICHEL Chandler Primary Care Unavailable MISC, DR ESPINO Attending Unavailable MISC, DR ESPINO Admitting Unavailable NADEREEnrike, DR MICHEL Chandler Consulting Unavailable NADERER, DR MICHEL Chandler Primary Care Unavailable NADERER, DR MICHEL Chandler Attending Unavailable NADERER, DR MICHEL Chandler Admitting Unavailable MISC, DR ESPINO Consulting Unavailable NADERER, DR MICHEL Chandler Primary Care Unavailable MISC, DR ESPINO Attending Unavailable MISC, DR ESPINO Admitting Unavailable PAY ., DR PIERRE Attending Unavailable PAY ., DR PIERRE Admitting Unavailable PAY ., DR PIERRE Consulting Unavailable NADERER, DR MICHEL Chandler Primary Care Unavailable OSEI, AZALIA Consulting Unavailable GRILLIS ., DR LISA Olivo Consulting Unavaila ble NADERER, DR MICHEL Chandler Primary Care Unavailable GRILLIS ., DR LISA Olivo Attending Unavaila ble GRILLIS ., DR LISA Olivo Admitting Unavaila ble PRESLEY II, GLORIA Consulting Unavailable SRINIVAS FELDER Consulting Unavailable GIORDANO ., DR DEVAUGHN Olivo Consulting Unavailable GIORDANO ., DR DEVAUGHN Olivo Attending Unavailable GIORDANO ., DR DEVAUGHN Olivo Admitting Unavailable NADEREEnrike, DR MICHEL Chandler Primary Care Unavailable JOLLY, DR TONY Heard Consulting Unavailhussein LEBLANC, DR QUIANA Guillen Consulting Unavailable LIZA PINTO Consulting Unavailable NADERER, DR MICHEL Chandler Consulting Unavailable NADEREEnrike, DR MICHEL Chandler Attending Unavailable NADERER, DR MICHEL Chandler Admitting Unavailable NADERER, DR MICHEL Chandler Primary Care Unavailable JANEEN MYERS Consulting Unavailable DARAMOLTHERESA Chandler Consulting Unavailable GRILLIS ., DR LISA Olivo Consulting Unavaila ble NADERER, DR MICHEL Chandler Primary Care Unavailable KENNETHILLIS ., DR LISA Olivo Attending Unavaila ble VIETS ., DR LISA Olivo Admitting Unavaila ble OTTONIEL, DR MICHLE Chandler Consulting Unavailable NADERER, DR MICHEL Chandler Primary Care Unavailable NADEREEnrike, DR MICHEL Chandler Attending Unavailable FRANCINEEREEnrike, DR MICHEL Chandler Admitting Unavailable Harley, Wolfidas B Unavailable Michel Alcazar Primary Care Provider Daniel BROCK, Lakesha N Unavailable Daniel BROCK, Lakesha N Unavailable Daniel BROCK, Lakesha N Unavailable Michel Alcazar Primary Care Provider [phone] OTTONIEL, MICHEL Chandler Primary Care Unavailable OTTONIEL, MICHEL Chandler Primary Care Unavailable OTTONIEL, MICHEL Chandler Primary Care Unavailable SAVANAH OLMOS Attending Unavailable OTTONIEL, MICHEL Chandler Primary Care Unavailable ROSSY WRIGHT Attending Unavailable NADEREEnrike, MICHEL Chandler Primary Care Unavailable DANIEL, LAKESHA Attending Unavailable LYLE DE LA ROSA Attending Unavailable OTTONIEL, MICHEL Chandler Primary Care Unavailable Allergies Allergy Classification Reported Allergen(s) Allergy Type Date of Onset Reaction(s) Facility (20 sources) Sulfonamides (Antibiotic); Translations: [SULFA (SULFONAMIDE ANTIBIOTICS)] Drug Intolerance [address] [facility] (20 sources) Iodinated Contrast Media; Translations: [IODINATED CONTRAST MEDIA] Propensity to adverse reactions to drug 7 Other: See Comments [facility] (1 source) Iodine (And Iodine Containting Drugs) Drug allergy (disorder) [facility] (1 source) Sulfonamides (Antibiotic) Drug allergy (disorder) [facility] Encounters Encounter Date Encounter Type Care Provider Facility Start: 09-03-2023 End: 09-03-2023 ambulatory MICHEL ALCAZAR Facility:[facility] Start: 09-03-2023 End: 09-03-2023 Patient encounter procedure Rossy Wright APRN.[employer]ER [employer] Work Phone: Kidney Medicine Comment on above: Stage 3b chronic kid mago disease (HCC) (Primary Dx); Type 2 diabetes mellitus with stage 3b chronic kidney disease, without long-term current use of insulin (HCC) Start: 07-31-2023 End: 07-31-2023 ambulatory MICHEL A NADERER Facility:[facility] Start: 07-31-2023 End: 07-31-2023 Patient encounter procedure Lakesha Sanchez MD Work Phone: Cardiology Comment on above: Coronary artery dise ase involving [place] coronary artery of [place] heart without angina pectoris (Primary Dx); Cardiomyopathy, ischemic; PAF (paroxysmal atrial fibrillation) (HCC); Chronic systolic heart failure (HCC); Obesity, morbid ([facility]) Start: 07-26-2023 Follow-up encounter Lyle hull MD Work Phone: [facility] Start: 07-26-2023 ICD Remote F/U Lyle Boyer MD Work Phone: [facility] Department Start: 07-22-2023 Telephone encounter Lakesha Ernst ot, MD Work Phone: Cardiology Comment on above: Received Outside Med [facility] Records Start: 03-27-2023 End: 03-27-2023 ambulatory MICHEL A NADERER Facility:[facility] Start: 03-27-2023 Follow-up encounter Lyle hull MD Work Phone: [facility] Start: 03-27-2023 End: 03-27-2023 Patient encounter procedure Lyle De La Rosa MD Work Phone: [facility] Department Comment on above: Cardiomyopathy, isch emic (Primary Dx) Start: 03-27-2023 End: 03-27-2023 ambulatory MICHEL A NADERER Facility:[facility] Start: 03-05-2023 Telephone encounter Savanah vazquez DO Work Phone: Kidney Medicine Comment on above: Results Start: 03-01-2023 End: 03-01-2023 ambulatory MICHEL A NADERER Facility:[facility] Start: 03-01-2023 End: 03-01-2023 Patient encounter procedure Savanah Olmos DO Work Phone: Kidney Medicine Comment on above: Stage 3b chronic kid mago disease (HCC) (Primary Dx); Type 2 diabetes mellitus with stage 3b chronic kidney disease, without long-term current use of insulin (HCC); Benign hypertension with chronic kidney disease, stage III (HCC); Hypoalbuminemia Start: 02-25-2023 Telephone encounter Rossy Wright APRN.[employer] Work Phone: Kidney Medicine Comment on above: lab orders faxed to [facility] Start: 01-25-2023 Follow-up encounter Niranjan lomeli MD Work Phone: [facility] Start: 01-25-2023 ICD Remote F/U Niranjan Chacko MD Work Phone: [facility] Start: 12-26-2022 Refill Lakeshapriya Mancilla Work Phone: Cardiology Comment on above: Refill Request (ator vastatin) Start: 08-13-2022 End: 08-13-2022 Patient encounter procedure Rossy Wright APRN.[employer] Work Phone: Kidney Medicine Comment on above: Benign hypertension with chronic kidney disease, stage III (HCC) (Primary Dx); Stage 3b chronic kidney disease (HCC); Type 2 diabetes mellitus with stage 3b chronic kidney disease, unspecified whether prison insulin use (HCC); Essential hypertension Start: 08-03-2022 Orders Only Bret Holder MD Work Phone: Cardiology Comment on above: Pacemaker (Primary D x); Chronic systolic congestive heart failure (HCC) Patient Question Start: 07-22-2022 End: 07-23-2022 Evaluation and management of inpatient DR MICHEL ALCAZAR Facility:[facility] Start: 07-20-2022 End: 07-20-[address] IGNACIO BENITEZ . Facility:[facility] Start: 07-18-2022 End: 07-18-[address] LISA APPLE . Facility:[facility] Start: 07-04-2022 Follow-up encounter Bret torres MD Work Phone: [facility] Start: 07-04-2022 End: 07-04-2022 Patient encounter procedure Bret Holder MD Work Phone: [facility] Comment on above: Coronary artery dise ase involving [place] coronary artery of [place] heart without angina pectoris (Primary Dx); Cardiomyopathy, ischemic; Bright red blood per rectum; S/P CABG (coronary artery bypass graft); ICD (implantable cardioverter-defibrillator) in place; Atrial fibrillation, chronic (HCC) Start: 07-03-2022 Telephone encounter Lakesha Ernst ot, MD Work Phone: Cardiology Comment on above: Received Outside Med ical Records Start: 06-26-2022 Orders Only Lakesha Mancilla Work Phone: Cardiology Comment on above: Cardiomyopathy, isch emic (Primary Dx); Chronic systolic congestive heart failure (HCC); Coronary artery disease involving [place] coronary artery of [place] heart without angina pectoris Start: 06-18-2022 Encounter for preprocedural laboratory examination DR LISA APPLE . [facility] Start: 06-16-2022 End: 06-17-[address] LISA APPLE . Facility:[facility] Start: 06-16-2022 End: 06-17-2022 Encounter for preprocedural laboratory examination DR LISA APPLE . Facility:[facility] Start: 05-23-2022 Telephone encounter Lakesha Ernst ot, MD Work Phone: Cardiology Comment on above: Request to hold Plav ix Start: 04-19-2022 Follow-up encounter Bret torres MD Work Phone: [facility] Start: 04-19-2022 ICD Remote F/U Bret Holder MD Work Phone: [facility] Start: 03-27-2022 End: 03-28-[address] MICHEL ALCAZAR Facility:[facility] Start: 03-23-2022 Telephone encounter Bret torres MD Work Phone: Cardiology Comment on above: Received Outside Med ical Records Start: 03-15-2022 Telephone encounter Geraldine Aguilar rdiology Comment on above: Patient Question Start: 03-12-2022 Telephone encounter Bret torres MD Work Phone: Cardiology Comment on above: Patient Update (Blee ding from rectum) Start: 03-10-2022 End: 03-12-2022 Evaluation and management of inpatient DR DEVAUGHN GIORDANO . Facility:[facility] Start: 02-09-2022 Follow-up encounter Bret torres MD Work Phone: [facility] Start: 02-09-2022 ICD Remote F/U Bret Holder MD Work Phone: [facility] Start: 02-08-2022 End: 02-09-[address] DOCTOR WAHL Facility:[facility] Start: 01-31-2022 Telephone encounter Rossy Loraine Wright APRN.[employer]ER [employer] Work Phone: [facility] [place] Comment on above: Lab Orders Start: 01-12-2022 Telephone encounter Lakesha Ernst ot, MD Work Phone: Cardiology Comment on above: Future Appointment Start: 01-08-2022 Telephone encounter Bret torres MD Work Phone: Cardiology Comment on above: Established Patient Follow-Up; Future Appointment Start: 12-29-2021 Follow-up encounter Bret torres MD Work Phone: [facility] Start: 12-29-2021 ICD Remote F/U Bret Holder MD Work Phone: [facility] Start: 12-29-2021 Refill Lakesha Mancilla Work Phone: Cardiology Comment on above: Refill Request (clop idogrel) Start: 12-21-2021 Follow-up encounter Bret torres MD Work Phone: [facility] Start: 12-21-2021 Patient encounter procedure Bret Holder MD Work Phone: [facility] Start: 12-19-2021 Telephone encounter Bret torres MD Work Phone: Cardiology Comment on above: Appointment Start: 12-18-2021 Follow-up encounter Bret torres MD Work Phone: [facility] Start: 12-18-2021 ICD Remote F/U Bret Holder MD Work Phone: [facility] Start: 12-13-2021 Follow-up encounter Bret torres MD Work Phone: [facility] Start: 12-13-2021 ICD Remote F/U Bret Holder MD Work Phone: [facility] Start: 11-30-2021 Follow-up encounter Bret torres MD Work Phone: [facility] Start: 11-30-2021 Patient encounter procedure Bret Holder MD Work Phone: [facility] Start: 11-06-2021 Orders Only La Nena Farrell nd LOAN COUNSELOR.CONTAINER [employer]ELDER Work Phone: Cardiology Comment on above: Cardiomyopathy, isch emic (Primary Dx) Start: 11-01-2021 Telephone encounter Bret torres MD Work Phone: Cardiology Comment on above: Courtesy Call (Surve y ) Start: 10-31-2021 Follow-up encounter Bret torres MD Work Phone: [facility] Start: 10-31-2021 ICD Remote F/U Bret Holder MD Work Phone: [facility] Start: 10-23-2021 Follow-up encounter Bret torres MD Work Phone: [facility] Start: 10-23-2021 ICD Remote F/U Bret Holder MD Work Phone: [facility] Start: 10-20-2021 ambulatory Apolonia Diaz RN NURSE MUSEUM PREPARATOR Comment on above: Information Start: 10-18-2021 Follow-up encounter Bret torres MD Work Phone: [facility] Start: 10-18-2021 Patient encounter procedure Bret Holder MD Work Phone: [facility] Start: 10-17-2021 ambulatory Penelope berry Comment on above: Patient Education Start: 10-04-2021 Follow-up encounter Bret torres MD Work Phone: [facility] Start: 10-04-2021 End: 10-04-2021 Patient encounter procedure Bret Holder MD Work Phone: [facility] Comment on above: Cardiomyopathy, isch emic (Primary Dx); Chronic systolic congestive heart failure (HCC); Coronary artery disease involving [place] coronary artery of [place] heart without angina pectoris Start: 09-28-2021 Follow-up encounter Bret torres MD Work Phone: [facility] Start: 09-28-2021 ICD Remote F/U Bret Holder MD Work Phone: [facility] Start: 09-19-2021 End: 09-20-[address] MICHEL ALCAZAR Facility:[facility] Start: 08-29-2021 Follow-up encounter Bret torres MD Work Phone: [facility] Start: 08-29-2021 ICD Remote F/U Bret Holder MD Work Phone: [facility] Start: 08-10-2021 End: 08-11-[address] DOCTOR WAHL Facility:[facility] Medical Equipment Procedure Code Equipment Code Equipment Origin al Text Equipment Identifier Dates once daily. USE TO TEST BLOOD SUGAR DAILY [id number] Start: 06-26-2022 Comment on above: once daily. USE TO T EST BLOOD SUGAR DAILY [id number] [place] [id number] Start: 10-18-2021 Goals Date Patient Goal Desired Activity /State Personal health goal Immunizations Immunization Date Immunization Notes Care Provider [facility] 02-13-2022 influenza virus vacc ine, unspecified formulation Niranjan Chacko MD Work Phone: [facility] Medications Current Medications Medication Drug Class(es) Dates Sig (Normalized) Sig (Original) apixaban 2.5 mg oral tablet (20 sources) Factor Xa Inhibitor Start: 03-21-2023 take 1 tablet by mouth twice daily ELIQUIS 2.5 mg tab(s) take 1 tablet by mouth twice daily 180 tablet 3 03/21/2023 Active Start: 01-01-2022 take 1 tablet by patel twice daily apixaban (ELIQUIS) 2.5 mg tab(s) Take 1 tablet by mouth twice daily. 180 tablet 3 01/01/2022 Active Comment on above: Take 1 tablet by patel th twice daily. take 1 tablet by patel th twice daily atorvastatin 40 mg oral tablet (20 sources) HMG-CoA Reductase Inhibitor Start: 1 End: 3 take 1 tablet by mouth once daily at bedtime atorvastatin (LIPITOR) 40 mg tablet Take 1 tablet by mouth daily at bedtime. 90 tablet 4 12/27/2022 Active Comment on above: Take 1 tablet by patel th daily at bedtime. Calcium Carbonate (20 sources) CALCIUM CARBONAT E (CORAL CALCIUM ORAL) Take by mouth. 0 Active Comment on above: Take by mouth. cinnamon bark 500 mg oral capsule (20 sources) Cinnamon Bark 50 0 mg cap Take 1,000 tablets by mouth. 0 Active Comment on above: Take 1,000 tablets b y mouth. clopidogrel 75 mg oral tablet (20 sources) P2Y12 Platelet Inhibitor Start: 2 End: 3 take 1 tablet by mouth once daily clopidogrel (PLAVIX) 75 mg tablet Take 1 tablet by mouth once daily. 90 tablet 3 12/27/2022 Active Start: 10-12-2020 End: 12-29-2021 take 1 tablet by mouth once daily clopidogrel (PLAVIX) 75 mg tablet Take 1 tablet by mouth once daily. 90 tablet 4 10/04/2021 12/29/2021 Discontinued Comment on above: Take 1 tablet by patel th once daily. Echinacea 400 mg cap (20 sources) Echinacea 400 mg cap Take by mouth. 0 Active Comment on above: Take by mouth. furosemide 20 mg oral tablet (20 sources) Loop Diuretic Start: 10-13-19 21 End: 12-27-19 23 take 1 tablet by mouth once daily as needed, then take 1 tablet by mouth once daily as needed furosemide (LASIX) 20 mg tablet Take 1 tablet by mouth once daily. Take one pill daily. Take an additional pill as needed to keep weight stable. 105 tablet 4 12/27/2022 Active Comment on above: Take 1 tablet by patel th once daily. Take one pill daily. Take an additional pill as needed to keep weight stable. gabapentin 300 mg oral capsule (20 sources) Anti-epileptic Agent take 1 capsule by mouth twice daily gabapentin (NEURONTIN) 300 mg capsule Take 300 mg by mouth twice daily. 0 Active Comment on above: Take 300 mg by mouth twice daily. glimepiride 4 mg oral tablet (20 sources) Sulfonylurea Start: 02-01-20 take 1 tablet by mouth once daily glimepiride (AMARYL) 4 mg tablet Take 1 tablet by mouth once daily. At noon 0 01/31/2021 Active Comment on above: Take 1 tablet by patel th once daily. At noon 24 hr isosorbide mononitrate 30 mg extended release oral tablet (20 sources) Nitrate Vasodilator Start: 10-13-19 End: 12-27-19 take 1 tablet by mouth once daily in the morning isosorbide mononitrate ER (IMDUR) 30 mg 24 hr tablet Take 1 tablet by mouth once daily. Take 30 mg by mouth once daily, IN THE MORNING. 90 tablet 4 12/27/2022 Active Comment on above: Take 1 tablet by patel th once daily. Take 30 mg by mouth once daily, IN THE MORNING. lisinopril 5 mg oral tablet (20 sources) Angiotensin Converting Enzyme Inhibitor Start: 10-13-19 End: 12-27-19 take 1 tablet by mouth once daily lisinopril (ZESTRIL) 5 mg tablet Take 1 tablet by mouth once daily. 90 tablet 4 12/27/2022 Active Comment on above: Take 1 tablet by patel th once daily. 24 hr metoprolol succinate 50 mg extended release oral tablet (20 sources) beta-Adrenergic Marlene Start: 10-13-19 End: 12-27-19 take 1 tablet by mouth once daily metoprolol succinate ER (TOPROL XL) 50 mg 24 hr tablet Take 1 tablet by mouth once daily. 90 tablet 4 12/27/2022 Active Comment on above: Take 1 tablet by patel th once daily. MULTIVITAMIN-FERROUS FUMARATE-FOLIC ACID 18 MG-400 MCG TABLET (20 sources) take 1 tablet by mouth once daily MULTIVITAMIN-FERROUS FUMARATE-FOLIC ACID 18 MG-400 MCG TABLET Take 1 tablet by mouth once daily. 0 Active Comment on above: Take 1 tablet by patel th once daily. nitroglycerin 0.4 mg sublingual tablet (20 sources) Nitrate Vasodilator Start: 10-13-19 End: 05-18-20 22 nitroglycerin sublingual (NITROQUICK) 0.4 mg SL tablet Dissolve 1 tablet under the tongue every 5 minutes as needed for chest pain. 1 Bottle of 25 2 10/04/2021 Active Comment on above: Dissolve 1 tablet un malik the tongue every 5 minutes as needed for Chest Pain. perflutren lipid microspheres 1.3 mL in NaCl (PF) 0.9% 10 mL injection (DEFINITY) (20 sources) Start: 04-03-20 End: 07-03-19 23 perflutren lipid microspheres 1.3 mL in NaCl (PF) 0.9% 10 mL injection (DEFINITY) Start: 01-31-2021 End: 05-02-2022 perflutren lipid microsphere s 1.3 mL in NaCl (PF) 0.9% 10 mL injection (DEFINITY) 125 ml sodium chloride 9 mg/ml prefilled syringe (20 sources) Start: 01-31-2021 End: 07-03-2022 sodium chloride 0.9 % (flush) 10 mL (BD POSIFLUSH) spironolactone 25 mg oral tablet (20 sources) Aldosterone Antagonist Start: 10-12-2020 End: 12-26-2022 take 0.5 tablet by mouth once daily spironolactone (ALDACTONE) 25 mg tablet Take 0.5 tablets by mouth once daily. 45 tablet 4 12/27/2022 Active Comment on above: Take 0.5 tablets by mouth once daily. tamsulosin hydrochloride 0.4 mg oral capsule (20 sources) alpha-Adrenergic Marlene take 0.4 mg by mouth once daily at bedtime tamsulosin ER (FLOMAX) 0.4 mg cp24 Take 0.4 mg by mouth daily at bedtime. 0 Active Comment on above: Take 0.4 mg by mouth daily at bedtime. vitamin b12 1 mg oral tablet (20 sources) Vitamin B12 take 1 tablet by mouth once daily cyanocobalamin (VITAMIN B-12) 1,000 mcg tab Indications: Screening for genitourinary condition , CKD (chronic kidney disease) stage 3, GFR 30-59 ml/min (HCC) , Benign hypertension with chronic kidney disease, stage III (HCC) , Other hyperlipidemia Take 1,000 mcg by mouth once daily. 0 Active Comment on above: Take 1,000 mcg by [facility] once daily. Completed/Discontinued Medications Medication Drug Class(es) Dates Sig (Normalized) Sig (Original) aspirin 81 mg delayed release oral tablet (18 sources) Platelet Aggregation Inhibitor, Nonsteroidal Anti-inflammatory Drug take 1 tablet by mouth twice daily aspirin, enteric coated (ASPIRIN, ENTERIC COATED) 81 mg EC tablet Take 81 mg by mouth twice daily. 0 Active Comment on above: Take 81 mg by mouth twice daily. multivitamin/iron/f olic acid(CENTRUM COMPLETE 18 MG-400 MCG TABLET) (20 sources) take 1 tablet by mouth once daily multivitamin/iron/ folic acid(CENTRUM COMPLETE 18 MG-400 MCG TABLET) Take 1 tablet by mouth once daily. 0 Active Comment on above: Take 1 tablet by patel th once daily. Payers Date Payer Category Payer Unknown [employer] [id number] 2009-Present [phone] [id number] [place] [address] Indemnity [id number] 2009 Unknown [employer] SU[employer] [id number] 2009-Present [phone] [id number] [place] [address] Indemnity [id number] 2006 Medicare MEDICARE MEDICAR E A AND B [id number] 2006-Present [phone] [place] [address] Medicare [id number] 2006 Medicare MEDICARE MEDICAR E A AND B [id number] 2006-Present [phone] [place] [address] Medicare [id number] 1959 Medicare [id number] 1959 Unknown [id number] 1940 Unknown [id number] 3 1940 Unknown [id number] 3 1940 Unknown [id number] 3 1940 Unknown [id number] 3 1940 Unknown [id number] 3 1941 Unknown [id number] 3 1941 Unknown [id number] 3 1941 Unknown [id number] 3 1941 Unknown [id number] 3 Plan of Treatment Date Care Activity Detail Author Start: 04-16-2024 End: 07-16-2024 Basic metabolic 2000 panel - Serum or Plasma BASIC METABOLIC PANEL Lab Routine Coronary artery disease involving [place] coronary artery of [place] heart without angina pectoris Expected: 04/16/2024, Expires: 07/16/2024 [facility] Work Phone: Comment on above: Expected: 04/16/2024 , Expires: 07/16/2024 Start: 04-16-2024 End: 07-16-2024 Lipid 1996 panel - Serum or Plasma LIPID PANEL BASIC Lab Routine Coronary artery disease involving [place] coronary artery of [place] heart without angina pectoris Expected: 04/16/2024, Expires: 07/16/[address] [facility] Comment on above: Expected: 04/16/2024 , Expires: 07/16/2024 Start: 03-10-2024 End: 03-10-2024 Patient encounter procedure 03/10/2024 11:30 AM EDT Office Visit Kidney Medicine [address] [place] [address] Rossy Wright APRN.CON[employer]ER [employer] [address] [place] [address] 6 month f/u Kidney Medicine Comment on above: 6 month f/u Start: 03-04-2024 End: 06-03-2024 CBC panel - Blood by Automated count COMPLETE BLOOD COUNT Lab Routine Stage 3b chronic kidney disease (HCC) Type 2 diabetes mellitus with stage 3b chronic kidney disease, without long-term current use of insulin (HCC) Expected: 03/04/2024, Expires: 06/03/2024 [facility] Work Phone: Comment on above: Expected: 03/04/2024 , Expires: 06/03/2024 Start: 03-04-2024 End: 06-03-2024 Microalbumin/Creatinine [Mass Ratio] in Urine ALBUMIN/CREATININE RATIO, URINE Lab Routine Stage 3b chronic kidney disease (HCC) Type 2 diabetes mellitus with stage 3b chronic kidney disease, without long-term current use of insulin (HCC) Expected: 03/04/2024, Expires: 06/03/2024 [facility] Work Phone: Comment on above: Expected: 03/04/2024 , Expires: 06/03/2024 Start: 03-04-2024 End: 06-03-2024 Renal function 2000 panel - Serum or Plasma RENAL FUNCTION PANEL Lab Routine Stage 3b chronic kidney disease (HCC) Type 2 diabetes mellitus with stage 3b chronic kidney disease, without long-term current use of insulin (HCC) Expected: 03/04/2024, Expires: 06/03/2024 [facility] Work Phone: Comment on above: Expected: 03/04/2024 , Expires: 06/03/2024 Start: 09-07-2023 Covid-19 Vaccine () Covid-19 Vaccine () [facility] Start: 07-04-2023 BP CONTROLLED (<130/80) BP CONTROLLE D (<130/80) [facility] Start: 07-04-2023 HEMOGLOBIN/HEMATOCRIT HEMOGLOBIN/HEM ATOCRIT [facility] Start: 05-20-2023 Advance Directive Discussion Advance Directive Discussion [facility] Start: 05-20-2023 Behavioral Health Screening Behavioral Health Screening [facility] Start: 05-20-2023 Depression Assessment Depression Ass essment [facility] Start: 02-13-2023 BP CONTROLLED (<130/80) BP CONTROLLE D (<130/80) [facility] Start: 02-13-2023 End: 04-15-2023 CBC panel - Blood by Automated count CBC Lab Routine Benign hypertension with chronic kidney disease, 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, unspecified whether watermelon harvesting supervisor insulin use (HCC) Essential hypertension Expected: 02/13/2023, Expires: 04/15/2023 [facility] Work Phone: Comment on above: Expected: 02/13/2023 , Expires: 04/15/2023 Start: 02-13-2023 End: 04-15-2023 Renal function 2000 panel - Serum or Plasma RENAL FUNCTION PANEL Lab Routine Benign hypertension with chronic kidney disease, 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 Start: 01-18-[address] [facility] Start: 10-04-2022 BP CONTROLLED (<130/80) BP CONTROLLE D (<130/80) [facility] Start: 10-04-2022 HEMOGLOBIN/HEMATOCRIT HEMOGLOBIN/HEM ATOCRIT [facility] Start: 10-04-2022 SERUM CREATININE SERUM CREATININE [facility] Start: 03-22-2023 BP CONTROLLED (<130/80) BP CONTROLLE D (<130/80) [facility] Start: 08-03-2022 COVID-19 VACCINE (6 - Moderna series) COVID-19 VACCINE (6 - Moderna series) [facility] Start: 06-26-2022 End: 01-18-2023 Basic metabolic 2000 panel - Serum or Plasma BASIC METABOLIC PNL Lab Routine Cardiomyopathy, ischemic Chronic systolic congestive heart failure (HCC) Coronary artery disease involving [place] coronary artery of [place] heart without angina pectoris Expected: 06/26/2022, Expires: 01/18/2023 [facility] Work Phone: Comment on above: Expected: 06/26/2022 , Expires: 01/18/2023 Start: 05-20-2022 ADVANCE DIRECTIVE DISCUSSION ADVANCE DIRECTIVE DISCUSSION [facility] Start: 05-20-2022 DEPRESSION ASSESSMENT DEPRESSION ASS ESSMENT [facility] Start: 01-18-2022 Influenza vaccination INFLUENZA (#1) [facility] Start: 01-09-2022 Hepatitis B screening Urine Albumin:Creatinine Ratio [facility] Start: 01-09-2022 SERUM CREATININE SERUM CREATININE [facility] Start: 10-16-2021 COVID-19 VACCINE (5 - Booster for Moderna series) COVID-19 VACCINE (5 - Booster for Moderna series) [facility] Start: 10-12-2021 Hepatitis B surface antibody level LDL CHOLESTEROL [facility] Start: 07-18-2021 COVID-19 VACCINE (4 - Booster for Moderna series) COVID-19 VACCINE (4 - Booster for Moderna series) [facility] Start: 05-20-2021 ADVANCE DIRECTIVE DISCUSSION ADVANCE DIRECTIVE DISCUSSION [facility] Start: 05-20-2021 DEPRESSION ASSESSMENT DEPRESSION ASS ESSMENT [facility] Start: 09-04-2019 HEMOGLOBIN/HEMATOCRIT HEMOGLOBIN/HEM ATOCRIT [facility] Start: 09-04-2019 Hepatitis B screening URINE ALBUMIN:CREATININE RATIO [facility] Start: 11-06-2018 Hemoglobin A1c measurement HbA1C [facility] Start: 2006 PNEUMOVAX AGE 65 AND OVER WITH 5YR LOOKBACK (#1) PNEUMOVAX AGE 65 AND OVER WITH 5YR LOOKBACK (#1) [facility] Start: 2001 Hepatitis B Vaccine (1 of 3 - Risk 3-dose series) Hepatitis B Vaccine (1 of 3 - Risk 3-dose series) [facility] Start: 2001 RSV Vaccine (1 - 1-d ose 60+ series) RSV Vaccine (1 - 1-dose 60+ series) [facility] Start: 1991 SHINGRIX VACCINE (1 of 2) SHINGRIX VACCINE (1 of 2) [facility] Start: 1960 Urine microalbumin profile [facility] Start: 1959 ANNUAL PCP TEAM CIVIL LITIGATION ATTORNEY [place] DISEASE VISIT ANNUAL PCP TEAM CHRONIC DISEASE VISIT [facility] Start: 1953 Adult depression screening assessment DEPRESSION SCREENING [facility] Start: 1951 3 comp foot exam completed DIABETIC FOOT EXAM [facility] Start: 1951 Diabetic foot examination Diabetic Foot Exam [facility] Start: 1951 Glaucoma screening Dilated Retinal E xam [facility] Start: 1951 Hepatitis C antibody , confirmatory test DILATED RETINAL EXAM [facility] Start: 1947 Pneumococcal Vaccine : 65+ (1 - PCV) Pneumococcal Vaccine: 65+ (1 - PCV) [facility] Start: 1947 Pneumococcal Vaccine : 65+ (1 of 2 - PCV) Pneumococcal Vaccine: 65+ (1 of 2 - PCV) [facility] Start: 1947 PNEUMOCOCCAL: 65+ (1 - PCV) PNEUMOCOCCAL: 65+ (1 - PCV) [facility] Start: 1946 Hemoglobin A1c/Hemoglobin.total in Blood HBA1C [facility] End: 11-06-2022 ECG COMPLETE ECG COMPLETE ECG Routine Cardiomyopathy, ischemic 1 Occurrences starting 11/06/2021 until 11/06/2022 [facility] Work Phone: Comment on above: 1 Occurrences starti ng 11/06/2021 until 11/06/2022 End: 08-04-2023 ECG COMPLETE ECG COMPLETE ECG Routine Pacemaker Chronic systolic congestive heart failure (HCC) 1 Occurrences starting 08/03/2022 until 08/04/2023 [facility] Work Phone: Comment on above: 1 Occurrences starti ng 08/03/2022 until 08/04/2023 End: 10-14-2024 ECG COMPLETE ECG COMPLETE ECG Routine Coronary artery disease involving [place] coronary artery of [place] heart without angina pectoris 1 Occurrences starting 10/15/2023 until 10/14/[address] [facility] Comment on above: 1 Occurrences starti ng 10/15/2023 until 10/14/2024 [facility] Problems Active Problems Problem Classification Problem Date Documented Da te Episodic/Chronic Acute and unspecified renal failure (1 source) Acute kidney failure, unspecified; Translations: [ACUTE KIDNEY FAILURE UNSPECIFIED] Onset: 3 Episodic Cardiac dysrhythmias (2 sources) Chronic atrial fibrillation; Translations: [Chronic atrial fibrillation, unspecified] Chronic Chronic kidney disease (4 sources) Chronic kidney disease, unspecified; Translations: [Chronic kidney disease stage 3B ] Onset: 2 Chronic Chronic kidney disease (7 sources) Chronic kidney disease; Translations: [CHRONIC KIDNEY DISEASE STAGE 3B] Onset: 7 Coagulation and hemorrhagic disorders (1 source) Thrombocytopenia, unspecified; Translations: [THROMBOCYTOPENIA UNSPECIFIED] Onset: 3 Chronic Complication of device; implant or graft (20 sources) Disorder of coronary artery; Translations: [Atherosclerosis of coronary artery bypass graft(s) without angina pectoris] Onset: 7 12-05-2016 Chronic Conduction disorders (5 sources) Automatic implantable cardiac defibrillator in situ; Translations: [Presence of automatic (implantable) cardiac defibrillator] Onset: 2 Chronic Congestive heart failure; nonhypertensive (20 sources) Chronic systolic heart failure; Translations: [Chronic systolic (congestive) heart failure] Onset: 7 02-19-2018 Chronic Coronary atherosclerosis and other heart disease (20 sources) Coronary atherosclerosis; Translations: [Atherosclerotic heart disease of [place] coronary artery without angina pectoris] Onset: 7 04-25-2017 Chronic Coronary atherosclerosis and other heart disease (1 source) Presence of aortocoronary bypass graft; Translations: [PRESENCE AORTOCORONARY BYPASS GRAFT] Onset: 3 Episodic Deficiency and other anemia (1 source) Iron deficiency anemia, unspecified; Translations: [IRON DEFICIENCY ANEMIA UNSPECIFIED] Onset: 3 Episodic Diabetes mellitus with complications (20 sources) Type 2 diabetes mellitus; Translations: [Type 2 diabetes mellitus with diabetic chronic kidney disease] Onset: 7 08-14-2018 Chronic Diabetes mellitus without complication (1 source) Type 2 diabetes mellitus without complications; Translations: [TYPE 2 DM WITHOUT COMPLICATIONS] Onset: 3 Chronic Diabetes mellitus without complication (1 source) Diabetes mellitus without complication; Translations: [Type 2 diabetes mellitus with stage 3b chronic kidney disease, without long-term current use of insulin ([facility])] Onset: 9 Disorders of lipid metabolism (2 sources) Pure hypercholesterolemia, unspecified; Translations: [Hyperlipidemia, unspecified] Onset: 2 Chronic Diverticulosis and diverticulitis (1 source) Diverticulosis of large intestine without perforation or abscess with bleeding; Translations: [DVRTCLOS LG INT W/O PERF/ABSC W/BL] Onset: 3 Chronic Essential hypertension (20 sources) Essential hypertension; Translations: [Essential (primary) hypertension] Onset: 9 08-14-2018 Chronic Essential hypertension (1 source) Essential hypertension; Translations: [Benign hypertension with chronic kidney disease, stage III ([facility])] Onset: 7 Fluid and electrolyte disorders (2 sources) Dehydration; Translations: [Hypokalemia] Onset: 3 Episodic Gastrointestinal hemorrhage (4 sources) Gastrointestinal hemorrhage; Translations: [Hemorrhage of anus and rectum] Onset: 3 Episodic Hyperplasia of prostate (1 source) Benign prostatic hyperplasia with lower urinary tract symptoms; Translations: [BENIGN PROSTATIC HYPERPLASIA W/LUTS] Onset: 3 Chronic Hypertension with complications and secondary hypertension (20 sources) Chronic kidney disease stage 3; Translations: [Hypertensive chronic kidney disease with stage 1 through stage 4 chronic kidney disease, or unspecified chronic kidney disease] Onset: 7 12-05-2016 Chronic Intestinal infection (2 sources) Acute gastroenteropathy due to [place] agent; Translations: [ACUTE GASTROENTROPATHY [place] AGNT] Onset: 3 Episodic Nausea and vomiting (1 source) Nausea with vomiting, unspecified; Translations: [NAUSEA WITH VOMITING UNSPECIFIED] Onset: 3 Episodic Other aftercare (1 source) Other prison (current) drug therapy; Translations: [OTH EGG PRODUCER CURRENT DRUG THERAPY] Onset: 3 Episodic Other aftercare (1 source) 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; Translations: [SKILLED NURSING ANTITHROMBOT/ANTIPLATL ETS] Onset: 3 Episodic Other and unspecified benign neoplasm (1 source) Benign neoplasm of cecum; Translations: [BENIGN NEOPLASM OF CECUM] Onset: 3 Episodic Other and unspecified benign neoplasm (1 source) Benign neoplasm of transverse colon; Translations: [BENIGN NEOPLASM OF TRANSVERSE COLON] Onset: 3 Episodic Other gastrointestinal disorders (4 sources) Diarrhea, unspecified; Translations: [DIARRHEA UNSPECIFIED] Onset: 3 Episodic Other nutritional; endocrine; and metabolic disorders (20 sources) Obese class II; Translations: [Obesity, unspecified] Onset: 8 09-11-2017 Chronic Other nutritional; endocrine; and metabolic disorders (1 source) Morbid (severe) obesity due to excess calories; Translations: [MORBID SEVERE OBES D/T EXCESS MARIA FERNANDA] Onset: 3 Chronic Other nutritional; endocrine; and metabolic disorders (1 source) Body mass index (BMI) 40.0-44.9, adult; Translations: [BODY MASS INDEX BMI 40.0-44.9 ADULT] Onset: 3 Chronic Other nutritional; endocrine; and metabolic disorders (1 source) Obesity, unspecified; Translations: [OBESITY UNSPECIFIED] Onset: 3 Chronic Other nutritional; endocrine; and metabolic disorders (1 source) Body mass index (BMI) 34.0-34.9, adult; Translations: [BODY MASS INDEX BMI 34.0-34.9 ADULT] Onset: 3 Chronic Other nutritional; endocrine; and metabolic disorders (1 source) Body mass index (BMI) 35.0-35.9, adult; Translations: [BODY MASS INDEX BMI 35.0-35.9 ADULT] Onset: 2 Chronic Other nutritional; endocrine; and metabolic disorders (1 source) Hypoalbuminemia; Translations: [Other disorders of plasma-protein metabolism, not elsewhere classified] 10-13-2023 Chronic Other nutritional; endocrine; and metabolic disorders (1 source) Morbid obesity; Translations: [Morbid (severe) obesity due to excess calories] 10-15-2023 Chronic Other screening for suspected conditions (not mental disorders or infectious disease) (2 sources) Other specified abnormal findings of blood chemistry; Translations: [Encounter for screening for malignant neoplasm of prostate] Onset: 2 Episodic Residual codes; unclassified (1 source) Chills (without fever); Translations: [CHILLS WITHOUT FEVER] Onset: 3 Episodic Syncope (1 source) Syncope and collapse; Translations: [SYNCOPE AND COLLAPSE] Onset: 3 Episodic Unclassified (1 source) CHRN KIDNEY DISEASE STG 3 UNSP; Translations: [CHRN KIDNEY DISEASE STG 3 UNSP] Onset: 3 Unclassified (1 source) CONTACT W/AND (SUSP) EXPOS COVID-19; Translations: [CONTACT W/AND (SUSP) EXPOS COVID-19] Onset: 3 Past or Other Problems Problem Classification Problem Date Documented Date Episodic/Chronic Acute posthemorrhagic anemia (1 source) Acute posthemorrhagic anemia; Translations: [ACUTE POSTHEMORRHAGIC ANEMIA] Onset: 04-11-2022 Episodic Genitourinary symptoms and ill-defined conditions (1 source) Personal history of urinary (tract) infections; Translations: [PERS HX URINARY TRACT INFECTIONS] Onset: 04-11-2022 Episodic Hemorrhoids (1 source) Other hemorrhoids; Translations: [OTHER HEMORRHOIDS] Onset: 04-11-2022 Episodic Other aftercare (1 source) [facility] (current) use of anticoagulants; Translations: [SKILLED NURSING CURRNT USE ANTICOAGULANTS] Onset: 04-11-2022 Episodic Pulmonary heart disease (1 source) Personal history of pulmonary embolism; Translations: [PERSONAL HISTORY PULMONARY EMBOLISM] Onset: 04-11-2022 Episodic Procedures Date Procedure Procedure Detail Performing Clinician Start: 07-26-2023 ICD REMOTE CHECK Cole Lopez MD Work Phone: Start: 03-27-2023 ICD CLINIC CHECK Cole Lopez MD Work Phone: Start: 01-25-2023 ICD REMOTE CHECK Niranjan Chacko MD Work Phone: Start: 07-04-2022 ICD CLINIC CHECK Bret Holder MD Work Phone: Start: 04-19-2022 ICD REMOTE CHECK Bret Holder MD Work Phone: Start: 03-27-[address] DOCTOR WAHL Comment on above: Performed By: #### C K #### [facility] [address] [place] [address] Dr. Darline Starr Start: 02-09-2022 ICD REMOTE CHECK Bret Holder MD Work Phone: Start: 12-29-2021 ICD REMOTE CHECK Bret Holder MD Work Phone: Start: 12-21-2021 ICD CLINIC CHECK Bret Holder MD Work Phone: Start: 12-18-2021 ICD REMOTE CHECK Bret Holder MD Work Phone: Start: 12-13-2021 ICD REMOTE CHECK Bret Holder MD Work Phone: Start: 11-30-2021 ICD CLINIC CHECK Bret Holder MD Work Phone: Start: 10-31-2021 ICD REMOTE CHECK Bret Holder MD Work Phone: Start: 10-23-2021 ICD REMOTE CHECK Bret Holder MD Work Phone: Start: 10-18-2021 ICD CLINIC CHECK Bret Holder MD Work Phone: Start: 10-04-2021 ICD CLINIC CHECK Bret Holder MD Work Phone: Start: 09-28-2021 ICD REMOTE CHECK Bret Holder MD Work Phone: Start: 08-29-2021 ICD REMOTE CHECK Bret Holder MD Work Phone: Start: 04-25-2017 History of coronary artery bypass grafting S/P CABG (coronary artery bypass graft) Bret Holder MD Work Phone: History of coronary artery bypass grafting S/P CABG (coronary artery bypass graft) Lakesha Sanchez MD Work Phone: Results Test Name Value Interpretation Reference Range Facility RYANdelia 09-03-2023 CNOV Office Visit (MIDMAV ) BRANDONJUNIOR Olivo ([id number]) 1940 M Date Time Provider Department 09/03/23 2:30 PM ROSSY WRIGHT [facility] During your visit today, we recorded the following information about you: Pulse Blood pressure Weight Height 70/minute 89/57 112.4 kg 1.854 m Rossy Wright, LOAN COUNSELOR.CONTAINER SHOP WELDER 09/03/2023 2:05 PM Signed Pt is an 83 yo male here for follow up for CKD stage 3-direct cause unknown. He was last seen 02/2023. No changes made at that time He has a hx of HTN, DM and CAD s/p PPM 2013, CHF----no proteinuria noted. Had new PPM placed 10/18/2021. Saw cardiology 2 weeks ago. No changes made Baseline Scr is ~ 1.5-1.8. Reviewed outside labs earlier this week and sent for scanning No new meds. No admissions since last OV. Here with PAST MEDICAL HISTORY Diagnosis Date A-fib ([facility]) CAD (coronary artery disease) s/p CABG 4v, pacemaker CKD (chronic kidney disease) stage 3, GFR 30-59 ml/min ([facility]) Diabetes mellitus type 2 in obese GERD (gastroesophageal reflux disease) Hyperlipidemia Hypertension Creatinine Date Value Ref Range Status 07/04/2022 1.71 (H) 0.73 - 1.22 mg/dL Final 10/04/2021 1.62 (H) 0.73 - 1.22 mg/dL Final 10/12/2020 1.58 (H) 0.73 - 1.22 mg/dL Final 10/12/2020 1.57 (H) 0.73 - 1.22 mg/dL Final Potassium Date Value Ref Range Status 07/04/2022 4.6 3.7 - 5.1 mmol/L Final 10/04/2021 4.9 3.7 - 5.1 mmol/L Final 10/12/2020 5.0 3.7 - 5.1 mmol/L Final 10/12/2020 5.0 3.7 - 5.1 mmol/L Final Exam General: NAD, alert Lungs: CTA bilaterally Heart: Irreg, + murmur Extremities: No edema BP - standardized method Pulse 1 BP #1: 83/53 Pulse #1: 70 beats/min 2 BP #2 : 92/60 Pulse #2 : 70 beats/min 3 BP #3 : 92/58 Pulse #3 : 70 beats/min Average Average BP: 89/57 Orthostatic vitals Supine Sitting Standing Standing BP : (physical limitations) Standing pulse : (physical limitations) BP cuff location BP cuff location: Right upper arm BP cuff size BP cuff size: large adult Comments for BP values First BP (right) First BP (left) Impression/plan CKD stage 3-nonproteinuric, with stable baseline Scr of 1.5-1.8. Reviewed NSAID avoidance. Follow labs HTN-BPs are at his baseline. Asymptomatic of low BP. No changes. Heme-Hgb WNL MBD-Ca, Po4, PTH and Vit D stable Plan No changes Labs and follow up in 6 months Rossy Wright APRN.CONTAINER SHOP WELDER Allergies As of Date: 09/03/2023 Noted Allergy Reaction IV DYE (IODINATED CONTRAST MEDIA) 04/24/2017 14 - Other: See Comments Comments: May cause kidney problems SULFA (SULFONAMIDE ANTIBIOTICS) 12/05/2016 9 - Itching Date Reviewed: 09/03/2023 Reviewed by: Esther Quach MA - Fully Assessed Reason for Visit: Follow Up [171] Cmt: Ckd Primary Visit Diagnosis:Stage 3b chronic kidney disease (HCC) [N18.32] Other Visit Diagnosis:Type 2 diabetes mellitus with stage 3b chronic kidney disease, without long-term current use of insulin (HCC) [E11.22, N18.32] Order(s):COMPLETE BLOOD COUNT [SQCBC] Order #: [id number] FUTURE ALBUMIN/CREATININE RATIO, URINE [SQUACR] Order #: [id number] FUTURE RENAL FUNCTION PANEL [SQRFP] Order #: [id number] FUTURE Prescriptions as of 09/03/2023 - ELIQUIS 2.5 mg tab(s) take 1 tablet by mouth twice daily - atorvastatin (LIPITOR) 40 mg tablet Take 1 tablet by mouth daily at bedtime. - metoprolol succinate ER (TOPROL XL) 50 mg 24 hr tablet Take 1 tablet by mouth once daily. - furosemide (LASIX) 20 mg tablet Take 1 tablet by mouth once daily. Take one pill daily. Take an additional pill as needed to keep weight stable. - clopidogrel (PLAVIX) 75 mg tablet Take 1 tablet by mouth once daily. - isosorbide mononitrate ER (IMDUR) 30 mg 24 hr tablet Take 1 tablet by mouth once daily. Take 30 mg by mouth once daily, IN THE MORNING. - lisinopril (ZESTRIL) 5 mg tablet Take 1 tablet by mouth once daily. - spironolactone (ALDACTONE) 25 mg tablet Take 0.5 tablets by mouth once daily. - [employer] [place] ULTRA TEST test strip once daily. USE TO TEST BLOOD SUGAR DAILY - nitroglycerin sublingual (NITROQUICK) 0.4 mg SL tablet Dissolve 1 tablet under the tongue every 5 minutes as needed for chest pain. - Echinacea 400 mg cap Take by mouth. - glimepiride (AMARYL) 4 mg tablet Take 1 tablet by mouth once daily. At noon - cyanocobalamin (VITAMIN B-12) 1,000 mcg tab Take 1,000 mcg by mouth once daily. - gabapentin (NEURONTIN) 300 mg capsule Take 300 mg by mouth twice daily. - tamsulosin ER (FLOMAX) 0.4 mg cp24 Take 0.4 mg by mouth daily at bedtime. - MULTIVITAMIN-FERROUS FUMARATE-FOLIC ACID 18 MG-400 MCG TABLET Take 1 tablet by mouth once daily. - CALCIUM CARBONATE (CORAL CALCIUM ORAL) Take by mouth. - Cinnamon Bark 500 mg cap Take 1,000 tablets by mouth. Problem List As Of Date 09/03/2023 Noted Resolved CKD (chronic kidney disease) stage 3, GFR 30-59*12/05/2016 Benign hypertens (more content not included)... Normal [facility] REMOTE CHECKon 4 AV Delay Adaptive Paced Minimum (ms) [address] [facility] AV Delay Adaptive Sensed Minimum (ms) [address] [facility] AV Delay Paced (ms) 90 ms [facility] AV Delay Sensed (ms) 90 ms [facility] Battery Voltage 2.[address] [facility] Johan LV Pacing Amplitude (volts) 2.[address] [facility] Johan LV Pacing Polarity BI [facility] Johan LV Pacing Pulse Width (ms) 0.[address] [facility] Johan RA Pacing Amplitude (volts) 2.[address] [facility] Johan RA Pacing Polarity BI [facility] Johan RA Pacing Pulse Width (ms) 0.[address] [facility] Johan RA Sensing Amplitude (mvolts) 0.[address] [facility] Johan RA Sensing Polarity BI [facility] Johan RV Pacing Amplitude (volts) 1.[address] [facility] Johan RV Pacing Polarity BI [facility] Johan RV Pacing Pulse Width (ms) 0.[address] [facility] Johan RV Sensing Amplitude (mvolts) 0.[address] [facility] Johan RV Sensing Polarity BI [facility] Detection Configuration (Vent) 1 - Zone [facility] ICD FastVT DetectionStatus DISABLED [facility] ICD-AMS EPISODES 170 {beats}/min [facility] ICD-ATP Episodes (Vent) [address] [facility] ICD-Device Mfg Other [facility] ICD-LEADIMPEDANCEATR IAL [address] [facility] ICD-Percent Pacing (Atrial) 83.0 % [facility] ICD-Shocks Aborted (Vent) [address] [facility] [id number] 0 [facility] ICD-SHOCKSABORTED 0 [facility] ICD-SHOCKSDELIVEREDV ENTRICULAR [address] [facility] ICD-VVDELAY_MS [address] [facility] Implant Date 10/18/[address] [facility] Lead Impedance (LV) 800 ohm [facility] Lead Impedance (RV) 460 ohm [facility] [facility] Lead Impedance High Voltage [address] [facility] Lead1 Mfg STJ [facility] Lead2 Mfg STJ [facility] Lead3 Mfg STJ [facility] Location LV [facility] Location RA [facility] Location RV [facility] Lower Rate (bpm) 70 {beats}/min [facility] Max Sensor Rate (bpm) 110 {beats}/min [facility] MDT_PROG_TACHY_ZONE_ DETECTIONS_STATUS ENABLED [facility] Model [id number] [place] HF [facility] Model 1458Q Quartet [facility] Model 2088TC Tendril STS [facility] Model 7122Q Durata SJ4 [facility] Pacing Mode DDDR [facility] Serial Number [id number] [facility] Serial Number [id number] [facility] Serial Number [id number] [facility] Serial Number [id number] [facility] Test Charge Energy 40 J [facility] Test Charge Time 9.0 s [place] [facility] Therapy Status (Vent) Enabled [facility] Thresh LV Capture Amplitude (volts) 0.[address] [facility] Thresh LV Capture Duration (ms) 0.[address] [facility] Thresh RA Capture Amplitude (volts) 0.[address] [facility] Thresh RA Capture Duration (ms) 0.[address] [facility] Thresh RA Sensing Amplitude (mvolts) 1.[address] [facility] Thresh RV Capture Amplitude (VOLTS) 0.[address] [facility] Thresh RV Capture Duration (MS) 0.[address] [facility] Thresh RV Sensing Amplitude (MVOLTS) 12.[address] [facility] Tracking Rate (bpm) 130 {beats}/min [facility] VF Zone Detection Interval [address] [facility] VF Zone Therapy Configuration 0 ATP(s) + 6 Shock(s) [facility] No Panel Informationon 08-01 BLANK _ [facility] Implant Date 03/23/[address] [facility] CNOVon 07-31-2023 CNOV Office Visit (CARCMN ) JUNIOR TAYLOR ([id number]) 1940 M Date Time Provider Department 07/31/23 10:45 AM LAKESHA SANCHEZ CARCMN During your visit today, we recorded the following information about you: Pulse Respiration Blood pressure Weight 69/minute 16/minute 107/60 110.7 kg Height 1.854 m Lakesha Sanchez MD 10/15/2023 10:22 AM Signed [facility] [place] [facility] Department of Cardiovascular Medicine SECTION OF CLINICAL CARDIOLOGY OUTPATIENT VISIT DATE August 01, 2023 OUTPATIENT VISIT TYPE ESTABLISHED PRIMARY CARE PHYSICIAN: Michel Alcazar MD ([facility]) [address] [place] [address] REFERRING PHYSICIAN: No referring provider defined for this encounter. 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 Taylor is a 83 year old male who presents today for a cardiovascular medicine follow-up visit of his above problems. Overall, he is doing well and notes no chest pain or shortness of breath.. He has lost a significant amount of weight and was 272 pounds in September 2021 it is now down to 247 pounds which is excellent. He denies chest pain, shortness of breath, orthopnea, cough, edema, palpitations, PND, lightheadedness or syncope. PAST CARDIAC HISTORY: None, as above PAST MEDICAL HISTORY Diagnosis Date A-fib ([facility]) CAD (coronary artery disease) s/p CABG 4v, pacemaker CKD (chronic kidney disease) stage 3, GFR 30-59 ml/min ([facility]) Diabetes mellitus type 2 in obese GERD (gastroesophageal reflux disease) Hyperlipidemia Hypertension PAST SURGICAL HISTORY Procedure Laterality Date CABG (4) VEIN GRAFTS AND ARTERIAL GRAFT(S) 2002? PACEMAKER 2014 PAST SURGICAL HISTORY OF knee SOCIAL HISTORY Social History Tobacco Use Smoking status: Never Smokeless tobacco: Never Vaping Use Vaping Use: Never used Substance Use Topics Alcohol use: No Drug use: No FAMILY HISTORY Problem Relation Age of Onset Coronary Artery Disease Mother Coronary Artery Disease Father Patient-Entered Questionnaire Scores 07/25/2023 Patient Entered Questionnaires Average hours of sleep per day 7 07/25/2023 Insomnia Severity Index (MILLY) Score Incomplete 07/25/2023 PROMIS Global Health - (T-Scores - the mean of general population = 50. Five points is a clinically meaningful difference.) Physical T-Score 39.8 Mental T-Score 36.3 Sleep Duration Level: N/A ALLERGIES: ALLERGIES Allergen Reactions Iv Dye [Iodinated C* Other: See Comments May cause kidney problems Sulfa (Sulfonamide * Itching MEDICATIONS: ELIQUIS 2.5 mg tab(s) take 1 tablet by mouth twice daily (Patient taking differently: Take 2.5 mg by mouth once daily.) atorvastatin (LIPITOR) 40 mg tablet Take 1 tablet by mouth daily at bedtime. metoprolol succinate ER (TOPROL XL) 50 mg 24 hr tablet Take 1 tablet by mouth once daily. furosemide (LASIX) 20 mg tablet Take 1 tablet by mouth once daily. Take one pill daily. Take an additional pill as needed to keep weight stable. clopidogrel (PLAVIX) 75 mg tablet Take 1 tablet by mouth once daily. isosorbide mononitrate ER (IMDUR) 30 mg 24 hr tablet Take 1 tablet by mouth once daily. Take 30 mg by mouth once daily, IN THE MORNING. lisinopril (ZESTRIL) 5 mg tablet Take 1 tablet by mouth once daily. spironolactone (ALDACTONE) 25 mg tablet Take 0.5 tablets by mouth once daily. [employer] ULTRA TEST test strip once daily. USE TO TEST BLOOD SUGAR DAILY nitroglycerin sublingual (NITROQUICK) 0.4 mg SL tablet Dissolve 1 tablet under the tongue every 5 minutes as needed for chest pain. Echinacea 400 mg cap Take by mouth. glimepiride (AMARYL) 4 mg tablet Take 1 tablet by mouth once daily. At noon gabapentin (NEURONTIN) 300 mg capsule Take 300 mg by mouth twice daily. tamsulosin ER (FLOMAX) 0.4 mg cp24 Take 0.4 mg by mouth daily at bedtime. MULTIVITAMIN-FERROUS FUMARATE-FOLIC ACID 18 MG-400 MCG TABLET Take 1 tablet by mouth once daily. CALCIUM CARBONATE (CORAL CALCIUM ORAL) Take by mouth. Cinnamon Bark 500 mg cap Take 1,000 tablets by mouth. cyanocobalamin (VITAMIN B-12) 1,000 mcg tab Take 1,000 mcg by mouth once daily. (Patient not taking: Reported on 03/27/2023) REVIEW OF SYSTEMS: No review of systems performed PHYSICAL EXAMINATION: BP 107/60 (BP Site: Left Arm, BP Position: Sitting, BP Cuff Size: Regular Adult) Pulse 69 Resp 16 Ht 185.4 cm (6' 1 ) Wt 110.7 kg (244 lb) SpO2 97% BMI 32.19 kg/m? General: Well appearing, in no acute distress. Skin: No clubbing, no cyanosis. Eyes: Extra ocular movements intact Oropharynx: Teeth in g (more content not included)... Normal [facility] CNPNon 07-22-2023 CNPN Telephone (CARCMN) JUNIOR TAYLOR ([id number]) 1940 M Date Time Provider Department 07/22/23 LAKESHA SANCHEZ CARCMN During your visit today, we recorded the following information about you: Andre Watkins 07/22/2023 12:29 PM Signed Received records from [facility] - ED visit 07-09-2023 Uploaded to scanned documents Appt on 07/31/2023 Last appt - 12/26/2022 Andre Torres Adm Asst III, Clinical Cardiology Allergies As of Date: 07/22/2023 Noted Allergy Reaction IV DYE (IODINATED CONTRAST MEDIA) 04/24/2017 14 - Other: See Comments Comments: May cause kidney problems SULFA (SULFONAMIDE ANTIBIOTICS) 12/05/2016 9 - Itching Date Reviewed: 03/27/2023 Reviewed by: Denisse Brothers, JOSE - Fully Assessed Reason for Visit: Received Outside Medical Records [[id number]] Prescriptions as of 07/22/2023 - ELIQUIS 2.5 mg tab(s) take 1 tablet by mouth twice daily - atorvastatin (LIPITOR) 40 mg tablet Take 1 tablet by mouth daily at bedtime. - metoprolol succinate ER (TOPROL XL) 50 mg 24 hr tablet Take 1 tablet by mouth once daily. - furosemide (LASIX) 20 mg tablet Take 1 tablet by mouth once daily. Take one pill daily. Take an additional pill as needed to keep weight stable. - clopidogrel (PLAVIX) 75 mg tablet Take 1 tablet by mouth once daily. - isosorbide mononitrate ER (IMDUR) 30 mg 24 hr tablet Take 1 tablet by mouth once daily. Take 30 mg by mouth once daily, IN THE MORNING. - lisinopril (ZESTRIL) 5 mg tablet Take 1 tablet by mouth once daily. - spironolactone (ALDACTONE) 25 mg tablet Take 0.5 tablets by mouth once daily. - [employer] ULTRA TEST test strip once daily. USE TO TEST BLOOD SUGAR DAILY - nitroglycerin sublingual (NITROQUICK) 0.4 mg SL tablet Dissolve 1 tablet under the tongue every 5 minutes as needed for chest pain. - Echinacea 400 mg cap Take by mouth. - glimepiride (AMARYL) 4 mg tablet Take 1 tablet by mouth once daily. At noon - cyanocobalamin (VITAMIN B-12) 1,000 mcg tab Take 1,000 mcg by mouth once daily. - gabapentin (NEURONTIN) 300 mg capsule Take 300 mg by mouth twice daily. - tamsulosin ER (FLOMAX) 0.4 mg cp24 Take 0.4 mg by mouth daily at bedtime. - MULTIVITAMIN-FERROUS FUMARATE-FOLIC ACID 18 MG-400 MCG TABLET Take 1 tablet by mouth once daily. - CALCIUM CARBONATE (CORAL CALCIUM ORAL) Take by mouth. - Cinnamon Bark 500 mg cap Take 1,000 tablets by mouth. Problem List As Of Date 07/22/2023 Noted Resolved CKD (chronic kidney disease) stage 3, GFR 30-59*12/05/2016 Benign hypertension with chronic kidney disease*12/05/2016 Coronary artery disease involving autologous ve*12/05/2016 Type 2 diabetes mellitus with stage 3 chronic k*12/05/2016 Coronary artery disease involving [place]*04/25/2017 Cardiomyopathy, ischemic [I25.5] 04/25/2017 S/P CABG (coronary artery bypass graft) [Z95.1] 04/25/2017 Chronic systolic heart failure (HCC) [I50.22] 04/25/2017 Obesity, Class II, BMI 35-39.9 E66.9 [E66.9] 09/11/2017 Coronary artery disease of [place] artery of [place]*02/19/2018 Essential hypertension [I10] 08/14/2018 Encounter Status:Closed by ANDRE WATKINS on 07/22/23 [facility] CNOVon 03-27-2023 CNOV Office Visit (CARDMN ) JUNIOR TAYLOR ([id number]) 1940 M Date Time Provider Department 03/27/23 1:30 PM LYLE DE LA ROSA CARDMN During your visit today, we recorded the following information about you: Pulse Blood pressure Weight Height 73/minute 89/57 112 kg 1.854 m Lyle De La Rosa MD 03/27/2023 1:45 PM Signed [facility] [place] [facility] Department of Cardiovascular Medicine SECTION OF CARDIAC PACING and ELECTROPHYSIOLOGY OUTPATIENT VISIT DATE March 27, 2023 OUTPATIENT VISIT TYPE ESTABLISHED PRIMARY CARE PHYSICIAN: Michel Alcazar MD ([facility]) [address] [place] [address] CHIEF 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 Taylor is a 82 year old male who presents today for follow-up visit for device management. 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 Last echo 04/2021 EF 30-35%. He was last seen in office 08/01/[address] Holder. He had generator change 10/18/21. Device check today shows no new arrhythmias, BiV pacing 99%. He reports he has been feeling well overall. He endorses shortness of breath with exertion. He denies chest pain, palpitations, edema, lightheadedness or syncope. PAST MEDICAL HISTORY Diagnosis Date A-fib (HCC) CAD (coronary artery disease) s/p CABG 4v, pacemaker CKD (chronic kidney disease) stage 3, GFR 30-59 ml/min ([facility]) Diabetes mellitus type 2 in obese (HCC) GERD (gastroesophageal reflux disease) Hyperlipidemia Hypertension PAST SURGICAL HISTORY Procedure Laterality Date CABG (4) VEIN GRAFTS AND ARTERIAL GRAFT(S) 2002? PACEMAKER 2013 PAST SURGICAL HISTORY OF knee SOCIAL HISTORY Social History Tobacco Use Smoking status: Never Smokeless tobacco: Never Vaping Use Vaping Use: Never used Substance Use Topics Alcohol use: No Drug use: No FAMILY HISTORY Problem Relation Age of Onset Coronary Artery Disease Mother Coronary Artery Disease Father ALLERGIES: ALLERGIES Allergen Reactions Iv Dye [Iodinated C* Other: See Comments May cause kidney problems Sulfa (Sulfonamide * Itching MEDICATIONS: ELIQUIS 2.5 mg tab(s) take 1 tablet by mouth twice daily (Patient taking differently: Take 2.5 mg by mouth once daily.) atorvastatin (LIPITOR) 40 mg tablet Take 1 tablet by mouth daily at bedtime. metoprolol succinate ER (TOPROL XL) 50 mg 24 hr tablet Take 1 tablet by mouth once daily. furosemide (LASIX) 20 mg tablet Take 1 tablet by mouth once daily. Take one pill daily. Take an additional pill as needed to keep weight stable. clopidogrel (PLAVIX) 75 mg tablet Take 1 tablet by mouth once daily. isosorbide mononitrate ER (IMDUR) 30 mg 24 hr tablet Take 1 tablet by mouth once daily. Take 30 mg by mouth once daily, IN THE MORNING. lisinopril (ZESTRIL) 5 mg tablet Take 1 tablet by mouth once daily. spironolactone (ALDACTONE) 25 mg tablet Take 0.5 tablets by mouth once daily. [employer] ULTRA TEST test strip once daily. USE TO TEST BLOOD SUGAR DAILY nitroglycerin sublingual (NITROQUICK) 0.4 mg SL tablet Dissolve 1 tablet under the tongue every 5 minutes as needed for chest pain. Echinacea 400 mg cap Take by mouth. glimepiride (AMARYL) 4 mg tablet Take 1 tablet by mouth once daily. At noon gabapentin (NEURONTIN) 300 mg capsule Take 300 mg by mouth twice daily. tamsulosin ER (FLOMAX) 0.4 mg cp24 Take 0.4 mg by mouth daily at bedtime. MULTIVITAMIN-FERROUS FUMARATE-FOLIC ACID 18 MG-400 MCG TABLET Take 1 tablet by mouth once daily. CALCIUM CARBONATE (CORAL CALCIUM ORAL) Take by mouth. Cinnamon Bark 500 mg cap Take 1,000 tablets by mouth. cyanocobalamin (VITAMIN B-12) 1,000 mcg tab Take 1,000 mcg by mouth once daily. (Patient not taking: Reported on 03/27/2023) Denisse Brothers RN PHYSICAL EXAMINATION: There were no vitals taken for this visit. General: Well appearing, in no acute distress. Skin: No clubbing, no cyanosis. Eyes: Extra ocular movements intact Oropharynx: Teeth in good repair. Neck: No jugular venous distention, no carotid bruits, carotids have a normal upstroke, no palpable thyromegaly. Lungs: Clear to auscultation bilaterally, no wheezing or rhonchi. Heart: Regular rhythm, PMI not displaced, S1, S2 normal, no S3, no S4, no heaves, no rub and no murmur. Abdomen: Soft, nontender, bowel sounds normal, no palpable organomegaly, no bruits. Extremities: No peripheral edema . Grade 2/4 distal pulses bilaterally. Neuro: Oriented to person, place and time, alert, cooperative, gait coordinated. CARDIOVASCULAR MEDICINE TESTING: EKG today: Device check today: MULTI CHAMBER ICD EVALUATION PRESENTS FOR: Appt with Dr De La Rosa PRESENTING EGM: /AP/ (more content not included)... Normal [facility] ECG COMPLETEon 03-27-2023 ECG COMPLETE Ventricular Rate : 7 3 BPM Atrial Rate : 73 BPM P-R Interval : 198 ms QRS Duration : 142 ms Q-T Interval : 452 ms QTC Calculation(Bazett) : 497 ms Calculated R [place] : -132 degrees Calculated T [place] : 52 degrees AV DUAL-PACED RHYTHM WITH OCCASIONAL VENTRICULAR-PACED COMPLEXES AND WITH OCCASIONAL PREMATURE VENTRICULAR COMPLEXES ABNORMAL ECG Confirmed by LISA CIFUENTES MD ([id number]) on 04/03/2023 8:19:16 PM NAME : JUNIOR TAYLOR PID : [id number] : 1940 Gender : Male Race : ORD : [id number] Procedure Date : Mar 27 2023 10:14:32 Edit Date : Apr 03 2023 20:19:21 Diagnosis: AV DUAL-PACED RHYTHM WITH OCCASIONAL VENTRICULAR-PACED COMPLEXES AND WITH OCCASIONAL PREMATURE VENTRICULAR COMPLEXES ABNORMAL ECG Confirmed by LISA CIFUENTES MD ([id number]) on 04/03/2023 8:19:16 PM Test Reason : Location : 314 : J14 J1-4 Overread By : LISA CIFUENTES MD Edited By : LISA CIFUENTES MD Referred By : , Acquired by : FRANCO,AUGUST Normal [facility] ICD CLINIC CHECKon 3 AV Delay Adaptive Paced Minimum (ms) [address] [facility] AV Delay Adaptive Rate Maximum (bpm) 130 {beats}/min [facility] AV Delay Adaptive Rate Minimum (bpm) 90 {beats}/min [facility] AV Delay Adaptive Sensed Minimum (ms) [address] [facility] AV Delay Adaptive Status Medium [facility] AV Delay Paced (ms) 90 ms [facility] AV Delay Sensed (ms) 90 ms [facility] Johan LV Pacing Amplitude (volts) 2.[address] [facility] Johan LV Pacing Polarity BI [facility] Johan LV Pacing Pulse Width (ms) 0.[address] [facility] Johan RA Pacing Amplitude (volts) 2.[address] [facility] Johan RA Pacing Polarity BI [facility] Johan RA Pacing Pulse Width (ms) 0.[address] [facility] Johan RA Sensing Amplitude (mvolts) 0.[address] [facility] Johan RA Sensing Blanking Period (ms) [address] [facility] Johan RA Sensing Polarity BI [facility] Johan RA Sensing Refractory Period (ms) [address] [facility] Johan RV Pacing Amplitude (volts) 1.[address] [facility] Johan RV Pacing Polarity BI [facility] Johan RV Pacing Pulse Width (ms) 0.[address] [facility] Johan RV Sensing Amplitude (mvolts) 0.[address] [facility] Johan RV Sensing Blanking Period (ms) [address] [facility] Johan RV Sensing Polarity BI [facility] Detection Configuration (Vent) 1 - Zone [facility] ICD FastVT DetectionStatus DISABLED [facility] ICD-AMS EPISODES 170 {beats}/min [facility] ICD-Johan RV Sensing Refractory Period (ms) [address] [facility] ICD-Device Mfg Other [facility] ICD-FALLBACKRATE_BPM 70 {beats}/min [facility] ICD-Hysteresis Rate Off [facility] ICD-LEADIMPEDANCEATR IAL 337.[address] [facility] ICD-Percent Pacing (Atrial) 75.0 % [facility] ICD-Percent Pacing (Vent) 99.0 % [facility] ICD-PMT Intervention Atrial Pace [facility] ICD-PVC Intervention Off [facility] ICD-Rate Modulation Acceleration Reaction Fast [facility] ICD-Rate Modulation Deceleration Medium [facility] ICD-Rate Modulation [place] Auto (+2) [facility] ICD-Rate Modulation Threshold Auto (-0.5) [facility] ICD-Rhythm SR ~[address] [facility] ICD-Shocks Aborted (Vent) 0.[address] [facility] GVD-[id number] 0.0 [facility] ICD-SHOCKSABORTED 0.0 [facility] ICD-SHOCKSDELIVEREDV ENTRICULAR 0.[address] [facility] Implant Date 10/18/[address] [facility] Lead Impedance (LV) 825.0 ohm [facility] Lead Impedance (RV) 400.0 ohm [facility] Lead Impedance High Voltage 63.[address] [facility] Lead1 Mfg STJ [facility] Lead2 Mfg STJ [facility] Lead3 Mfg STJ [facility] Location LV [facility] Location RA [facility] Location RV [facility] Lower Rate (bpm) 70 {beats}/min [facility] Max Sensor Rate (bpm) 110 {beats}/min [facility] MDT_PROG_TACHY_ZONE_ DETECTIONS_STATUS ENABLED [facility] Model [id number] [place] HF [facility] Model 1458Q Quartet [facility] Model 2088TC Tendril STS [facility] Model 7122Q Durata SJ4 [facility] Pacemaker Dependent? NO [facility] Pacing Mode DDDR [facility] Serial Number [id number] [facility] Serial Number [id number] [facility] Serial Number [id number] [facility] Serial Number [id number] [facility] Test Charge Time 9.125 [facility] Therapy Status (Vent) Enabled [facility] Thresh LV Capture Amplitude (volts) 0.[address] [facility] Thresh LV Capture Duration (ms) 0.[address] [facility] Thresh RA Capture Amplitude (volts) 0.[address] [facility] Thresh RA Capture Duration (ms) 0.[address] [facility] Thresh RA Sensing Amplitude (mvolts) 2.[address] [facility] Thresh RV Capture Amplitude (VOLTS) 0.[address] [facility] Thresh RV Capture Duration (MS) 0.[address] [facility] Thresh RV Sensing Amplitude (MVOLTS) 12.[address] [facility] Tracking Rate (bpm) 130 {beats}/min [facility] VF Zone Detection Interval [address] [facility] VF Zone Therapy Configuration 1 ATP(s) + 6 Shock(s) [facility] No Panel Informationon 03-27 BLANK _ [facility] Implant Date 03/23/[address] [facility] CNPNon 03-18-2023 CNPN Telephone (CARDMN) NOAHJUNIOR MÉNDEZ ([id number]) 1940 M Date Time Provider Department 03/18/23 LYLE DE LA ROSA During your visit today, we recorded the following information about you: Liban Taiasia 03/18/2023 3:24 PM Signed Outside medical records (labs 02/26/2023) scanned into [employer]. Patient is scheduled to see Dr. Lyle De La Rosa on March 27, 2023. Allergies As of Date: 03/18/2023 Noted Allergy Reaction IV DYE (IODINATED CONTRAST MEDIA) 04/24/2017 14 - Other: See Comments Comments: May cause kidney problems SULFA (SULFONAMIDE ANTIBIOTICS) 12/05/2016 9 - Itching Date Reviewed: 03/01/2023 Reviewed by: Ifeanyi Gamble - Fully Assessed Reason for Visit: Received Outside Medical Records [[id number]] Cmt: Labs 02/26/2023 Appointment 03/27/2023 Prescriptions as of 03/18/2023 - atorvastatin (LIPITOR) 40 mg tablet Take 1 tablet by mouth daily at bedtime. - metoprolol succinate ER (TOPROL XL) 50 mg 24 hr tablet Take 1 tablet by mouth once daily. - furosemide (LASIX) 20 mg tablet Take 1 tablet by mouth once daily. Take one pill daily. Take an additional pill as needed to keep weight stable. - clopidogrel (PLAVIX) 75 mg tablet Take 1 tablet by mouth once daily. - isosorbide mononitrate ER (IMDUR) 30 mg 24 hr tablet Take 1 tablet by mouth once daily. Take 30 mg by mouth once daily, IN THE MORNING. - lisinopril (ZESTRIL) 5 mg tablet Take 1 tablet by mouth once daily. - spironolactone (ALDACTONE) 25 mg tablet Take 0.5 tablets by mouth once daily. - [employer] ULTRA TEST test strip once daily. USE TO TEST BLOOD SUGAR DAILY - apixaban (ELIQUIS) 2.5 mg tab(s) Take 1 tablet by mouth twice daily. - nitroglycerin sublingual (NITROQUICK) 0.4 mg SL tablet Dissolve 1 tablet under the tongue every 5 minutes as needed for chest pain. - Echinacea 400 mg cap Take by mouth. - glimepiride (AMARYL) 4 mg tablet Take 1 tablet by mouth once daily. At noon - cyanocobalamin (VITAMIN B-12) 1,000 mcg tab Take 1,000 mcg by mouth once daily. - gabapentin (NEURONTIN) 300 mg capsule Take 300 mg by mouth twice daily. - tamsulosin ER (FLOMAX) 0.4 mg cp24 Take 0.4 mg by mouth daily at bedtime. - MULTIVITAMIN-FERROUS FUMARATE-FOLIC ACID 18 MG-400 MCG TABLET Take 1 tablet by mouth once daily. - CALCIUM CARBONATE (CORAL CALCIUM ORAL) Take by mouth. - Cinnamon Bark 500 mg cap Take 1,000 tablets by mouth. Problem List As Of Date 03/18/2023 Noted Resolved CKD (chronic kidney disease) stage 3, GFR 30-59*12/05/2016 Benign hypertension with chronic kidney disease*12/05/2016 Coronary artery disease involving autologous ve*12/05/2016 Type 2 diabetes mellitus with stage 3 chronic k*12/05/2016 Coronary artery disease involving [place] jenkins*04/25/2017 Cardiomyopathy, ischemic [I25.5] 04/25/2017 S/P CABG (coronary artery bypass graft) [Z95.1] 04/25/2017 Chronic systolic heart failure (HCC) [I50.22] 04/25/2017 Obesity, Class II, BMI 35-39.9 E66.9 [E66.9] 09/11/2017 Coronary artery disease of [place]'od[place] artery of flore[place]io*02/19/2018 Essential hypertension [I10] 08/14/2018 Encounter Status:Closed by DARNELL TAI on 03/18/23 [facility] 03-05-2023 WON Telephone ([facility]) JUNIOR TAYLOR ([id number]) 1940 M Date Time Provider Department 03/05/23 SAVANAH OLMOS [facility] During your visit today, we recorded the following information about you: AmarilisGeetana, 03/05/2023 3:57 PM Signed Called patient. He had lab work done with UA and UPCR/ UACR locally. Received results today and did not show protein loss. UACR was 25.7 and UPCR was 0.12. Savanah Sanchezlolita, March 05, 2023, 3:57 PM Allergies As of Date: 03/05/2023 Noted Allergy Reaction IV DYE (IODINATED CONTRAST MEDIA) 04/24/2017 14 - Other: See Comments Comments: May cause kidney problems SULFA (SULFONAMIDE ANTIBIOTICS) 12/05/2016 9 - Itching Date Reviewed: 03/01/2023 Reviewed by: Ifeanyi Gamble - Fully Assessed Reason for Visit: Results [95] Prescriptions as of 03/05/2023 - atorvastatin (LIPITOR) 40 mg tablet Take 1 tablet by mouth daily at bedtime. - metoprolol succinate ER (TOPROL XL) 50 mg 24 hr tablet Take 1 tablet by mouth once daily. - furosemide (LASIX) 20 mg tablet Take 1 tablet by mouth once daily. Take one pill daily. Take an additional pill as needed to keep weight stable. - clopidogrel (PLAVIX) 75 mg tablet Take 1 tablet by mouth once daily. - isosorbide mononitrate ER (IMDUR) 30 mg 24 hr tablet Take 1 tablet by mouth once daily. Take 30 mg by mouth once daily, IN THE MORNING. - lisinopril (ZESTRIL) 5 mg tablet Take 1 tablet by mouth once daily. - spironolactone (ALDACTONE) 25 mg tablet Take 0.5 tablets by mouth once daily. - ONETOUCH ULTRA TEST test strip once daily. USE TO TEST BLOOD SUGAR DAILY - apixaban (ELIQUIS) 2.5 mg tab(s) Take 1 tablet by mouth twice daily. - nitroglycerin sublingual (NITROQUICK) 0.4 mg SL tablet Dissolve 1 tablet under the tongue every 5 minutes as needed for chest pain. - Echinacea 400 mg cap Take by mouth. - glimepiride (AMARYL) 4 mg tablet Take 1 tablet by mouth once daily. At noon - cyanocobalamin (VITAMIN B-12) 1,000 mcg tab Take 1,000 mcg by mouth once daily. - gabapentin (NEURONTIN) 300 mg capsule Take 300 mg by mouth twice daily. - tamsulosin ER (FLOMAX) 0.4 mg cp24 Take 0.4 mg by mouth daily at bedtime. - MULTIVITAMIN-FERROUS FUMARATE-FOLIC ACID 18 MG-400 MCG TABLET Take 1 tablet by mouth once daily. - CALCIUM CARBONATE (CORAL CALCIUM ORAL) Take by mouth. - Cinnamon Bark 500 mg cap Take 1,000 tablets by mouth. Problem List As Of Date 03/05/2023 Noted Resolved CKD (chronic kidney disease) stage 3, GFR 30-59*12/05/2016 Benign hypertension with chronic kidney disease*12/05/2016 Coronary artery disease involving autologous ve*12/05/2016 Type 2 diabetes mellitus with stage 3 chronic k*12/05/2016 Coronary artery disease involving [place]'od[place] jenkins*04/25/2017 Cardiomyopathy, ischemic [I25.5] 04/25/2017 S/P CABG (coronary artery bypass graft) [Z95.1] 04/25/2017 Chronic systolic heart failure (HCC) [I50.22] 04/25/2017 Obesity, Class II, BMI 35-39.9 E66.9 [E66.9] 09/11/2017 Coronary artery disease of [place] artery of florencio*02/19/2018 Essential hypertension [I10] 08/14/2018 Encounter Status:[facility] ) JUNIOR TAYLOR ([id number]) 1940 M Date Time Provider Department [facility] visit [facility], we recorded the following information about you: Pulse Blood pressure Weight Height 70/minute 102/66 120.2 kg 1.854 m Savanah Olmos DO 03/01/2023 3:08 PM Addendum Your kidney function level was stable I did see your albumin level was low so I want you to do an urine test for me. Please let me know when you have the test done so I can look out for the results. Avoid all NSAIDs (over the counter ones include ibuprofen, naproxen, alleve, motrin and advil.) Avoid IV iodinated contrast if able to, please call me at [phone] if you are ordered a test requiring iodinated contrast Please see Rossy Wright back in 6 months with labs prior to visit I did give you two order forms for lab work - one to do now and one prior to your visit with Savanah Gordon DO 03/01/2023 3:39 PM Signed HPI: Mr. Taylor is a 82 year old male who presents for a follow-up of CKD stage III with history of DM, HTN, CAD, last office visit in 07/2022 with Rossy Wright with no changes made at the time. He reports no changes since last visit. For his bp, he is on lisinopril 5mg daily, metoprolol 50mg daily, spironolactone 12.5mg daily. He does not check his home blood pressures. He also takes lasix 20mg daily. He has no complaints today. States he feels well. He states he has a good appetite. He denies foamy urine. Labs done locally this week, creatinine was 1.67mg/dL. was 1.7mg/dL in 07/2022. (Baseline is around 1.5-1.8mg/dL) PAST MEDICAL HISTORY Diagnosis Date A-fib ([facility]) CAD (coronary artery disease) s/p CABG 4v, pacemaker CKD (chronic kidney disease) stage 3, GFR 30-59 ml/min ([facility]) Diabetes mellitus type 2 in obese (HCC) GERD (gastroesophageal reflux disease) Hyperlipidemia Hypertension PAST SURGICAL HISTORY Procedure Laterality Date CABG (4) VEIN GRAFTS AND ARTERIAL GRAFT(S) 2002? PACEMAKER 2013 PAST SURGICAL HISTORY OF knee Current Outpatient Medications Medication Sig apixaban (ELIQUIS) 2.5 mg tab(s) Take 1 tablet by mouth twice daily. atorvastatin (LIPITOR) 40 mg tablet Take 1 tablet by mouth daily at bedtime. CALCIUM CARBONATE (CORAL CALCIUM ORAL) Take by mouth. Cinnamon Bark 500 mg cap Take 1,000 tablets by mouth. clopidogrel (PLAVIX) 75 mg tablet Take 1 tablet by mouth once daily. cyanocobalamin (VITAMIN B-12) 1,000 mcg tab Take 1,000 mcg by mouth once daily. Echinacea 400 mg cap Take by mouth. furosemide (LASIX) 20 mg tablet Take 1 tablet by mouth once daily. Take one pill daily. Take an additional pill as needed to keep weight stable. gabapentin (NEURONTIN) 300 mg capsule Take 300 mg by mouth twice daily. glimepiride (AMARYL) 4 mg tablet Take 1 tablet by mouth once daily. At noon isosorbide mononitrate ER (IMDUR) 30 mg 24 hr tablet Take 1 tablet by mouth once daily. Take 30 mg by mouth once daily, IN THE MORNING. lisinopril (ZESTRIL) 5 mg tablet Take 1 tablet by mouth once daily. metoprolol succinate ER (TOPROL XL) 50 mg 24 hr tablet Take 1 tablet by mouth once daily. MULTIVITAMIN-FERROUS FUMARATE-FOLIC ACID 18 MG-400 MCG TABLET Take 1 tablet by mouth once daily. nitroglycerin sublingual (NITROQUICK) 0.4 mg SL tablet Dissolve 1 tablet under the tongue every 5 minutes as needed for chest pain. ONETOUCH ULTRA TEST test strip once daily. USE TO TEST BLOOD SUGAR DAILY spironolactone (ALDACTONE) 25 mg tablet Take 0.5 tablets by mouth once daily. tamsulosin ER (FLOMAX) 0.4 mg cp24 Take 0.4 mg by mouth daily at bedtime. No current facility-administered medications for this visit. ALLERGIES Allergen Reactions Iv Dye [Iodinated C* Other: See Comments May cause kidney problems Sulfa (Sulfonamide * Itching FAMILY HISTORY Problem Relation Age of Onset Coronary Artery Disease Mother Coronary Artery Disease Father Social history: reports that he has never smoked. He has never used smokeless tobacco. He reports that he does not drink alcohol and does not use drugs. ROS: no fever, weight loss over the last year, but stabilized, no chest pain, no SOB, no nausea, no vomiting, no abdominal pain, no diarrhea, no constipation, no appetite changes, no frothy urine, no gross hematuria, no urinary symptoms, no lightheadedness, no dizziness, no edema PHYSICAL EXAMINATION: BP 102/66 Pulse 70 Ht 185.4 cm (6' 1 ) Wt 120.2 kg (265 lb) BMI 34.96 kg/m? BP - standardized method Pulse 1 BP #1: 105/67 Pulse #1: 70 beats/min 2 BP #2 : 102/65 Pulse #2 : 70 beats/min 3 BP #3 : 100/64 Pulse #3 : 70 beats/min Average Average BP: 102/66 Average Pulse: 70 beats/min Orthostatic vitals Supine Sitting Standing Standing BP : (fall risk) Standing pulse : (fall risk) BP cuff location BP cuff location: Right upp (more content not included)... [facility] JUNIOR TAYLOR ([id number]) 1940 M Date Time Provider Department 02/25/23 ROSSY WRIGHT During your visit today, we recorded the following information about you: Beryl Anderson 02/25/2023 10:19 AM Signed of Junior Taylor is calling Rossy Wright APRN.[employer] today to request lab orders be faxed to [facility] at [phone]. They need this shane because they have an office visit Saturday. They want to go to the lab tomorrow if possible. Please call Alma Rosa when orders are faxed. They will fax results to [facility]. No chief complaint on file. Patient has been identified by name and birthdate. Duration of symptoms: Person calling: spouse: Alma Rosa Call patient at: Home [phone] (home) [phone] (cell) Was an appointment scheduled: Closing statement: Ifeanyi Null 02/25/2023 11:21 AM Signed The requested document has been faxed to [phone]. Received a fax confirmation of OK on 02/25/23. I called and spoke with Micheal. I informed him of the below message from Rossy Wright. Micheal agreed with plan as stated below. Ifeanyi Gamble Allergies As of Date: 02/25/2023 Noted Allergy Reaction IV DYE (IODINATED CONTRAST MEDIA) 04/24/2017 14 - Other: See Comments Comments: May cause kidney problems SULFA (SULFONAMIDE ANTIBIOTICS) 12/05/2016 9 - Itching Date Reviewed: 08/13/2022 Reviewed by: Ifeanyi Gamble - Fully Assessed Reason for Visit: lab orders faxed to [facility] [Other] Prescriptions as of 02/25/2023 - atorvastatin (LIPITOR) 40 mg tablet Take 1 tablet by mouth daily at bedtime. - metoprolol succinate ER (TOPROL XL) 50 mg 24 hr tablet Take 1 tablet by mouth once daily. - furosemide (LASIX) 20 mg tablet Take 1 tablet by mouth once daily. Take one pill daily. Take an additional pill as needed to keep weight stable. - clopidogrel (PLAVIX) 75 mg tablet Take 1 tablet by mouth once daily. - isosorbide mononitrate ER (IMDUR) 30 mg 24 hr tablet Take 1 tablet by mouth once daily. Take 30 mg by mouth once daily, IN THE MORNING. - lisinopril (ZESTRIL) 5 mg tablet Take 1 tablet by mouth once daily. - spironolactone (ALDACTONE) 25 mg tablet Take 0.5 tablets by mouth once daily. - SuperblyTOUCH ULTRA TEST test strip once daily. USE TO TEST BLOOD SUGAR DAILY - apixaban (ELIQUIS) 2.5 mg tab(s) Take 1 tablet by mouth twice daily. - nitroglycerin sublingual (NITROQUICK) 0.4 mg SL tablet Dissolve 1 tablet under the tongue every 5 minutes as needed for chest pain. - Echinacea 400 mg cap Take by mouth. - glimepiride (AMARYL) 4 mg tablet Take 1 tablet by mouth once daily. At noon - cyanocobalamin (VITAMIN B-12) 1,000 mcg tab Take 1,000 mcg by mouth once daily. - gabapentin (NEURONTIN) 300 mg capsule Take 300 mg by mouth twice daily. - tamsulosin ER (FLOMAX) 0.4 mg cp24 Take 0.4 mg by mouth daily at bedtime. - MULTIVITAMIN-FERROUS FUMARATE-FOLIC ACID 18 MG-400 MCG TABLET Take 1 tablet by mouth once daily. - CALCIUM CARBONATE (CORAL CALCIUM ORAL) Take by mouth. - Cinnamon Bark 500 mg cap Take 1,000 tablets by mouth. 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 AV Delay Adaptive Sensed Minimum (ms) [address] [facility] AV Delay Paced (ms) 90 ms [facility] AV Delay Sensed (ms) 90 ms [facility] Battery Voltage 2.[address] [facility] Johan LV Pacing Amplitude (volts) 2.[address] [facility] Johan LV Pacing Polarity BI [facility] Johan LV Pacing Pulse Width (ms) 0.[address] [facility] Johan RA Pacing Amplitude (volts) 2.[address] [facility] Johan RA Pacing Polarity BI [facility] Johan RA Pacing Pulse Width (ms) 0.[address] [facility] Johan RA Sensing Amplitude (mvolts) 0.[address] [facility] Johan RA Sensing Polarity BI [facility] Johan RV Pacing Amplitude (volts) 1.[address] [facility] Johan RV Pacing Polarity BI [facility] Johan RV Pacing Pulse Width (ms) 0.[address] [facility] Johan RV Sensing Amplitude (mvolts) 0.[address] [facility] Johan RV Sensing Polarity BI [facility] Detection Configuration (Vent) 1 - Zone [facility] ICD FastVT DetectionStatus DISABLED [facility] ICD-AMS EPISODES 170 {beats}/min [facility] ICD-ATP Episodes (Vent) [address] [facility] ICD-Device Mfg Other [facility] ICD-LEADIMPEDANCEATR IAL [address] [facility] ICD-Percent Pacing (Atrial) 74.0 % [facility] ICD-Shocks Aborted (Vent) [address] [facility] EPL-[id number] 0 [facility] ICD-SHOCKSABORTED 0 [facility] ICD-SHOCKSDELIVEREDV ENTRICULAR [address] [facility] ICD-VVDELAY_MS [address] [facility] Implant Date 10/18/[address] [facility] Lead Impedance (LV) 800 ohm [facility] Lead Impedance (RV) 400 ohm [facility] Lead Impedance High Voltage [address] [facility] Lead1 Mfg STJ [facility] Lead2 Mfg STJ [facility] Lead3 Mfg STJ [facility] Location LV [facility] Location RA [facility] Location RV [facility] Lower Rate (bpm) 70 {beats}/min [facility] Max Sensor Rate (bpm) 110 {beats}/min [facility] MDT_PROG_TACHY_ZONE_ DETECTIONS_STATUS ENABLED [facility] Model [id number] [place] HF [facility] Model 1458Q Quartet [facility] Model 2088TC Tendril STS [facility] Model 7122Q Durata SJ4 [facility] Pacing Mode DDDR [facility] Serial Number [id number] [facility] Serial Number [id number] [facility] Serial Number [id number] [facility] Serial Number [id number] [facility] Test Charge Energy 40 J [facility] Test Charge Time 9.[address] [facility] Therapy Status (Vent) Enabled [facility] Thresh LV Capture Amplitude (volts) 0.[address] [facility] Thresh LV Capture Duration (ms) 0.[address] [facility] Thresh RA Capture Amplitude (volts) 0.[address] [facility] Thresh RA Capture Duration (ms) 0.[address] [facility] Thresh RA Sensing Amplitude (mvolts) 2.1 mV [facility] Thresh RV Capture Amplitude (VOLTS) 0.[address] [facility] Thresh RV Capture Duration (MS) 0.[address] [facility] Thresh RV Sensing Amplitude (MVOLTS) 12.[address] [facility] Tracking Rate (bpm) 130 {beats}/min [facility] VF Zone Detection Interval [address] [facility] VF Zone Therapy Configuration 0 ATP(s) + 6 Shock(s) [facility] No Panel Informationon 02-01 BLANK _ [facility] Implant Date 03/23/[address] [facility] CNPNon 10-30-2022 CNPN Telephone (CAR[facility]) JUNIOR TAYLOR ([id number]) 1940 M Date Time Provider Department 10/30/22 BRET [facility]OLDER During your visit today, we recorded the following information about you: Heidy Hu RN 10/30/2022 1:02 PM Signed Transmission was received. Spoke with daughter to let her know. Allergies As of Date: 10/30/2022 Noted Allergy Reaction IV DYE (IODINATED CONTRAST MEDIA) 04/24/2017 14 - Other: See Comments Comments: May cause kidney problems SULFA (SULFONAMIDE ANTIBIOTICS) 12/05/2016 9 - Itching Date Reviewed: 08/13/2022 Reviewed by: Ifeanyi Gamble - Fully Assessed Reason for Visit: Patient Question [4814] Cmt: called states was schedule for a remote check on October 25; but she discover the monitor was off. want to confirm, if transmission was received. Please call [phone] Prescriptions as of 10/30/2022 - ONETOUCH ULTRA TEST test strip once daily. USE TO TEST BLOOD SUGAR DAILY - clopidogrel (PLAVIX) 75 mg tablet Take 1 tablet by mouth once daily. - apixaban (ELIQUIS) 2.5 mg tab(s) Take 1 tablet by mouth twice daily. - atorvastatin (LIPITOR) 40 mg tablet Take 1 tablet by mouth daily at bedtime. - furosemide (LASIX) 20 mg tablet Take 1 tablet by mouth once daily. Take one pill daily. Take an additional pill as needed to keep weight stable. - isosorbide mononitrate ER (IMDUR) 30 mg 24 hr tablet Take 1 tablet by mouth once daily. Take 30 mg by mouth once daily, IN THE MORNING. - lisinopril (ZESTRIL, PRINIVIL) 5 mg tablet Take 1 tablet by mouth once daily. - metoprolol succinate ER (TOPROL XL) 50 mg 24 hr tablet Take 1 tablet by mouth once daily. - spironolactone (ALDACTONE) 25 mg tablet Take 0.5 tablets by mouth once daily. - nitroglycerin sublingual (NITROQUICK) 0.4 mg SL tablet Dissolve 1 tablet under the tongue every 5 minutes as needed for chest pain. - Echinacea 400 mg cap Take by mouth. - glimepiride (AMARYL) 4 mg tablet Take 1 tablet by mouth once daily. At noon - cyanocobalamin (VITAMIN B-12) 1,000 mcg tab Take 1,000 mcg by mouth once daily. - gabapentin (NEURONTIN) 300 mg capsule Take 300 mg by mouth twice daily. - tamsulosin ER (FLOMAX) 0.4 mg cp24 Take 0.4 mg by mouth daily at bedtime. - MULTIVITAMIN-FERROUS FUMARATE-FOLIC ACID 18 MG-400 MCG TABLET Take 1 tablet by mouth once daily. - CALCIUM CARBONATE (CORAL CALCIUM ORAL) Take by mouth. - Cinnamon Bark 500 mg cap Take 1,000 tablets by mouth. 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*12/05/2016 Coronary artery disease involving [place] jenkins*04/25/2017 Cardiomyopathy, ischemic [I25.5] 04/25/2017 S/P CABG (coronary artery bypass graft) [Z95.1] 04/25/2017 Chronic systolic heart failure (HCC) [I50.22] 04/25/2017 Obesity, Class II, BMI 35-39.9 E66.9 [E66.9] 09/11/2017 Coronary artery disease of [place] artery of florencio*02/19/2018 Essential hypertension [I10] 08/14/2018 Encounter Status:Closed by HEIDY HU RN on 10/30/22 Normal [facility] CBC AUTO DIFFon 07-23-2022 BASO # 0.0 103/ul Normal 0.0-0.1 [facility] Comment on above: Performed By: #### P THINT #### [facility] [address] [place] [address] Dr. Darline Starr Basophils/100 WBC (Bld) 0.3 % Normal 0.2-2.0 [facility] Comment on above: Performed By: #### P THINT #### [facility] [address] [place] [address] Dr. Darline Starr EO # 0.4 103/ul Normal 0.0-0.7 [facility] Comment on above: Performed By: #### P THINT #### [facility] [address] [place] [address] Dr. Darline Starr Eosinophils/100 WBC (Bld) 4.6 % Normal 0.9-7.0 [facility] Comment on above: Performed By: #### P THINT #### [facility] [address] [place] [address] Dr. Darline Starr Erythrocyte distribution width (RBC) [Ratio] 14.6 % Normal 11.0-15.0 [facility] Comment on above: Performed By: #### P THINT #### [facility] [address] [place] [address] Dr. Darline Starr Hematocrit (Bld) [Volume fraction] 33.6 % Critically low 42.0-54.0 [facility] Comment on above: Performed By: #### P THINT #### [facility] [address] [place] [address] Dr. Darline Starr Hemoglobin (Bld) [Mass/Vol] 11.5 g/dL Critically low 14.0-18.0 [facility] Comment on above: Performed By: #### P THINT #### [facility] [address] [place] [address] Dr. Darline Starr IG # 0.03 10e3/ul Normal 0.00-0.03 [facility] Comment on above: Performed By: #### P THINT #### [facility] [address] [place] [address] Dr. Darline Starr IG % 0.4 % Normal 0.0-0.5 [facility] Comment on above: Performed By: #### P THINT #### [facility] [address] [place] [address] Dr. Darline Starr LYMPH # 0.9 103/ul Critically low 1.2-3.8 [facility] Comment on above: Performed By: #### P THINT #### [facility] [address] [place] [address] Dr. Darline Starr Lymphocytes/100 WBC (Bld) 11.5 % Critically low 20.5-60.0 [facility] Comment on above: Performed By: #### P THINT #### [facility] [address] [place] [address] Dr. Darline Starr MANUAL DIFF REQ NO Normal [facility] Comment on above: Performed By: #### P THINT #### [facility] [address] [place] [address] Dr. Darline Starr MCH (RBC) [Entitic mass] 31.3 pg Normal 25.9-34.0 [facility] Comment on above: Performed By: #### P THINT #### [facility] [address] [place] [address] Dr. Darline Starr MCHC (RBC) [Mass/Vol] 34.2 g/dL Normal 29.9-35.2 [facility] Comment on above: Performed By: #### P THINT #### [facility] [address] [place] [address] Dr. Darline Starr MCV (RBC) [Entitic vol] 91.3 fL Normal 80.0-94.0 [facility] Comment on above: Performed By: #### P THINT #### [facility] [address] [place] [address] Dr. Darline Starr MONO # 0.8 103/ul Normal 0.3-0.8 [facility] Comment on above: Performed By: #### P THINT #### [facility] [address] [place] [address] Dr. Darline Starr Monocytes/100 WBC (Bld) 9.5 % Normal 1.7-12.0 [facility] Comment on above: Performed By: #### P THINT #### [facility] [address] [place] [address] Dr. Darline Starr NEUT # 5.9 103/ul Normal 1.4-6.5 [facility] Comment on above: Performed By: #### P THINT #### [facility] [address] [place] [address] Dr. Darline Starr Neutrophils/100 WBC (Bld) 73.7 % Normal 43.0-75.0 [facility] Comment on above: Performed By: #### P THINT #### [facility] [address] [place] [address] Dr. Darline Starr Platelet mean volume (Bld) [Entitic vol] 9.5 fL Normal 9.5-13.5 [facility] Comment on above: Performed By: #### P THINT #### [facility] [address] [place] [address] Dr. Darline Starr PLT 128 103/ul Critically low 150-450 [facility] Comment on above: Performed By: #### P THINT #### [facility] [address] [place] [address] Dr. Darline Starr RBC 3.68 106/ul Critically low 4.70-6.10 [facility] Comment on above: Performed By: #### P THINT #### [facility] [address] [place] [address] Dr. Darlnie Starr WBC 8.0 103/ul Normal 4.0-11.0 [facility] Comment on above: Performed By: #### P THINT #### [facility] [address] [place] [address] Dr. Darline Starr CPKon 03-06-2023 CK [Catalytic activity/Vol] 382 U/L Critically high 39-308 [facility] Comment on above: Performed By: #### C K #### [facility] [address] [address] [address] Darline Starr GLYCOHEMOGLOBIN A1Con 2022 ADA RECOMMENDATION SEE BELOW Normal [facility] Comment on above: Result Comment: ADA RECOMMENDED LIMIT 4.0 - 6.0 ADA THERAPEUTIC TARGET < 7.0 ACTION SUGGESTED > 7.0 Performed By: #### P OCGLUC #### [facility] [address] [place] [address] Dr. Darline Starr Glucose [Mass/Vol] 131 mg/dL Normal [facility] Comment on above: Performed By: #### P OCGLUC #### [facility] [address] [place] [address] Dr. Darline Starr HbA1c (Bld) [Mass fraction] 6.2 % Normal 4.5-6.2 [facility] Comment on above: Performed By: #### P OCGLUC #### [facility] [address] [place] [address] Dr. Darline Starr POINT OF CARE GLUCOSEon Glucose [Mass/Vol] 53 mg/dL Critically low 74-106 [facility] Comment on above: Performed By: #### P THINT #### [facility] [address] [place] [address] Dr. Darline Starr Glucose [Mass/Vol] 75 mg/dL Normal 74-106 [facility] Comment on above: Performed By: #### P OCGLUC #### [facility] [address] [place] [address] Dr. Darline Starr Glucose [Mass/Vol] 70 mg/dL Critically low 74-106 [facility] Comment on above: Performed By: #### P OCGLUC #### [facility] [address] [place] [address] Dr. Darline Starr Glucose [Mass/Vol] 98 mg/dL Normal 74-106 [facility] Comment on above: Performed By: #### C K #### [facility] [address] [address] [address] Darline Starr Glucose [Mass/Vol] 75 mg/dL Normal 74-106 [facility] Comment on above: Performed By: #### P OCGLUC #### [facility] [address] [address] [address] Darline Starr Glucose [Mass/Vol] 74 mg/dL Normal 74-106 [facility] Comment on above: Performed By: #### P OCGLUC #### [facility] [address] [address] [address] Darline Starr Glucose [Mass/Vol] 197 mg/dL Critically high 74-106 [facility] Comment on above: Performed By: #### P OCGLUC #### [facility] [address] [place] [address] Dr. Darline Starr PROF CHEM 8 (BAS METB)on Anion gap [Moles/Vol] 13.9 mmol/L Normal [facility] Comment on above: Performed By: #### P OCGLUC #### [facility] [address] [place] [address] Dr. Darline Starr Calcium [Mass/Vol] 7.9 mg/dL Critically low 8.5-10.1 [facility] Comment on above: Performed By: #### P OCGLUC #### [facility] [address] [place] [address] Dr. Darline Starr Chloride [Moles/Vol] 107 mmol/L Normal 98-107 [facility] Comment on above: Performed By: #### P OCGLUC #### [facility] [address] [place] [address] Dr. Darline Starr CO2 [Moles/Vol] 22.9 mmol/L Normal 21.0-32.0 [facility] Comment on above: Performed By: #### P OCGLUC #### [facility] [address] [place] [address] Dr. Darline Starr Creatinine [Mass/Vol] 1.70 mg/dL Critically high 0.70-1.30 [facility] Comment on above: Performed By: #### P OCGLUC #### [facility] [address] [address] [address] Darline Starr EGFR-AF RWANDAN 47 mL/min/1.73m2 Critically low >=60 [facility] Comment on above: Performed By: #### P OCGLUC #### [facility] [address] [address] [address] Darline Starr EGFR-NON AF RWANDAN 39 mL/min/1.73m2 Critically low >=60 [facility] Comment on above: Performed By: #### P OCGLUC #### [facility] [address] [address] [address] Darline Starr Glucose [Mass/Vol] 71 mg/dL Critically low 74-106 [facility] Comment on above: Performed By: #### P OCGLUC #### [facility] [address] [address] [address] Darline Starr Potassium [Moles/Vol] 3.8 mmol/L Normal 3.5-5.1 [facility] Comment on above: Performed By: #### P OCGLUC #### [facility] [address] [address] [address] Darline Starr Sodium [Moles/Vol] 140 mmol/L Normal 136-145 [facility] Comment on above: Performed By: #### P OCGLUC #### [facility] [address] [address] [address] Darline Starr Urea nitrogen [Mass/Vol] 28.0 mg/dL Critically high 7.0-18.0 [facility] Comment on above: Performed By: #### P OCGLUC #### [facility] [address] [address] [address] Darline Starr Urea nitrogen/Creatinine [Mass ratio] 16.5 mg/mg Normal [facility] Comment on above: Performed By: #### P OCGLUC #### [facility] [address] [address] [address] Darline Starr TSHon 07-23-2022 TSH 1.377 uIU/mL Normal 0.358-3.740 [facility] Comment on above: Performed By: #### P OCGLUC #### [facility] [address] [address] [address] Darline Starr CARDIAC PHILIP ADMITon 023 CK [Catalytic activity/Vol] 507 U/L Critically high 39-308 [facility] Comment on above: Performed By: #### P THINT #### [facility] [address] [address] [address] Darline Starr CK.MB [Mass/Vol] ng/mL Normal <=3.60 [facility] Comment on above: Performed By: #### P THINT #### [facility] [address] [address] [address] Darline Starr HSTROP 36.5 pg/mL Normal 4.0-76.1 [facility] Comment on above: Result Comment: CUT- OFF POINTS HAVE BEEN ESTABLISHED BASED ON THE FOURTH UNIVERSAL DEFINITIONS OF MYOCARDIAL INFARCTION. THE UPPER REFERENCE LIMIT (URL) OF TROPONIN, DEFINED THE 99TH PERCENTILE OF cTnI DISTRIBUTION IN A REFERENCE POPULATION, HAS BEEN CONFIRMED THE DECISION THRESHOLD FOR DC DIAGNOSIS. Performed By: #### P THINT #### [facility] [address] [address] [address] Darline Starr BRAYDEN 512 ng/mL Critically high 16-96 [facility] Comment on above: Performed By: #### P THINT #### [facility] [address] [place] [address] Dr. Darline Starr CBC AUTO DIFFon 07-22-2022 BASO # 0.0 103/ul Normal 0.0-0.1 [facility] Comment on above: Performed By: #### P THINT #### [facility] [address] [place] [address] Dr. Darline Starr Basophils/100 WBC (Bld) 0.2 % Normal 0.2-2.0 [facility] Comment on above: Performed By: #### P THINT #### [facility] [address] [place] [address] Dr. Darline Starr EO # 0.0 103/ul Normal 0.0-0.7 [facility] Comment on above: Performed By: #### P THINT #### [facility] [address] [address] [address] Darline Starr Eosinophils/100 WBC (Bld) 0.3 % Critically low 0.9-7.0 [facility] Comment on above: Performed By: #### P THINT #### [facility] [address] [address] [address] Darline Starr Erythrocyte distribution width (RBC) [Ratio] 14.6 % Normal 11.0-15.0 [facility] Comment on above: Performed By: #### P THINT #### [facility] [address] [place] [address] Dr. Darline Starr Hematocrit (Bld) [Volume fraction] 33.2 % Critically low 42.0-54.0 [facility] Comment on above: Performed By: #### P THINT #### [facility] [address] [place] [address] Dr. Darline Starr Hemoglobin (Bld) [Mass/Vol] 11.1 g/dL Critically low 14.0-18.0 [facility] Comment on above: Performed By: #### P THINT #### [facility] [address] [place] [address] Dr. Darline Starr IG # 0.04 10e3/ul Critically high 0.00-0.03 [facility] Comment on above: Performed By: #### P THINT #### [facility] [address] [place] [address] Dr. Darline Starr IG % 0.4 % Normal 0.0-0.5 [facility] Comment on above: Performed By: #### P THINT #### [facility] [address] [place] [address] Dr. Darline Starr LYMPH # 0.4 103/ul Critically low 1.2-3.8 [facility] Comment on above: Performed By: #### P THINT #### [facility] [address] [place] [address] Dr. Darline Starr Lymphocytes/100 WBC (Bld) 3.7 % Critically low 20.5-60.0 [facility] Comment on above: Performed By: #### P THINT #### [facility] [address] [address] [address] Darline Starr MANUAL DIFF REQ NO Normal [facility] Comment on above: Performed By: #### P THINT #### [facility] [address] [address] [address] Darline Starr MCH (RBC) [Entitic mass] 30.9 pg Normal 25.9-34.0 [facility] Comment on above: Performed By: #### P THINT #### [facility] [address] [address] [address] Darline Starr MCHC (RBC) [Mass/Vol] 33.4 g/dL Normal 29.9-35.2 [facility] Comment on above: Performed By: #### P THINT #### [facility] [address] [place] [address] Dr. Darline Starr MCV (RBC) [Entitic vol] 92.5 fL Normal 80.0-94.0 [facility] Comment on above: Performed By: #### P THINT #### [facility] [address] [place] [address] Dr. Darline Starr MONO # 0.6 103/ul Normal 0.3-0.8 [facility] Comment on above: Performed By: #### P THINT #### [facility] [address] [place] [address] Dr. Darline Starr Monocytes/100 WBC (Bld) 5.7 % Normal 1.7-12.0 [facility] Comment on above: Performed By: #### P THINT #### [facility] [address] [place] [address] Dr. Darline Starr NEUT # 9.1 103/ul Critically high 1.4-6.5 [facility] Comment on above: Performed By: #### P THINT #### [facility] [address] [place] [address] Dr. Darline Starr Neutrophils/100 WBC (Bld) 89.7 % Critically high 43.0-75.0 [facility] Comment on above: Performed By: #### P THINT #### [facility] [address] [address] [address] Darline Starr Platelet mean volume (Bld) [Entitic vol] 9.2 fL Critically low 9.5-13.5 [facility] Comment on above: Performed By: #### P THINT #### [facility] [address] [address] [address] Darline Starr PLT 121 103/ul Critically low 150-450 [facility] Comment on above: Performed By: #### P THINT #### [facility] [address] [address] [address] Darline Starr RBC 3.59 106/ul Critically low 4.70-6.10 [facility] Comment on above: Performed By: #### P THINT #### [facility] [address] [address] [address] Darline Starr WBC 10.2 103/ul Normal 4.0-11.0 [facility] Comment on above: Performed By: #### P THINT #### [facility] [address] [address] [address] Darline Starr Covid-19 PCR ([facility])on SARS-CoV-2 (COVID-19) RNA MILDRED+probe Ql (Unsp spec) Not detected Normal NOT DETECTED [facility] Comment on above: Result Comment: When diagnostic testing is negative, the possibility of a false negative should be considered in the context of a patient's recent exposures and the presence of clinical signs and symptoms consistent with SARS-CoV-2. This test is not yet approved or cleared by the [place] FDA. When there are no FDA-approved or cleared tests available, and other criteria are met, FDA can make tests available under an emergency access mechanism called an Emergency Use Authorization (EUA). The EUA for this test is supported by the [place] Vice President of Health and Human Service's declaration that circumstances exist to justify the emergency use of in vitro diagnostics for the detection and/or diagnosis of the virus that causes COVID-19. This EUA will remain in effect for the duration of the COVID-19 declaration justifying emergency of IVDs, unless it is terminated or revoked by the FDA (after which the test may no longer be used). Performed By: #### P OCGLUC #### [facility] [address] [address] [address] Darline Starr POINT OF CARE GLUCOSEon Glucose [Mass/Vol] 131 mg/dL Critically high 74-106 [facility] Comment on above: Performed By: #### P OCGLUC #### [facility] [address] [address] [address] Darline Starr Glucose [Mass/Vol] 55 mg/dL Critically low 74-106 [facility] Comment on above: Performed By: #### P OCGLUC #### [facility] [address] [address] [address] Darline Starr Glucose [Mass/Vol] 141 mg/dL Critically high 74-106 [facility] Comment on above: Performed By: #### P OCGLUC #### [facility] [address] [address] [address] Darline Starr PROF CHEM 8 (BAS METB)on Anion gap [Moles/Vol] 13.8 mmol/L Normal [facility] Comment on above: Performed By: #### P OCGLUC #### [facility] [address] [place] [address] Dr. Darline Starr Calcium [Mass/Vol] 7.5 mg/dL Critically low 8.5-10.1 [facility] Comment on above: Performed By: #### P OCGLUC #### [facility] [address] [place] [address] Dr. Darline Starr Chloride [Moles/Vol] 104 mmol/L Normal 98-107 [facility] Comment on above: Performed By: #### P OCGLUC #### [facility] [address] [place] [address] Dr. Darline Starr CO2 [Moles/Vol] 24.3 mmol/L Normal 21.0-32.0 [facility] Comment on above: Performed By: #### P OCGLUC #### [facility] [address] [address] [address] Darline Starr Creatinine [Mass/Vol] 2.12 mg/dL Critically high 0.70-1.30 [facility] Comment on above: Performed By: #### P OCGLUC #### [facility] [address] [address] [address] Darline Starr EGFR-AF RWANDAN 37 mL/min/1.73m2 Critically low >=60 [facility] Comment on above: Performed By: #### P OCGLUC #### [facility] [address] [address] [address] Darline Starr EGFR-NON AF RWANDAN 30 mL/min/1.73m2 Critically low >=60 [facility] Comment on above: Performed By: #### P OCGLUC #### [facility] [address] [address] [address] Darline Starr Glucose [Mass/Vol] 108 mg/dL Critically high 74-106 [facility] Comment on above: Performed By: #### P OCGLUC #### [facility] [address] [address] [address] Darline Starr Potassium [Moles/Vol] 3.1 mmol/L Critically low 3.5-5.1 [facility] Comment on above: Performed By: #### P OCGLUC #### [facility] [address] [address] [address] Darline Starr Sodium [Moles/Vol] 139 mmol/L Normal 136-145 [facility] Comment on above: Performed By: #### P OCGLUC #### [facility] [address] [address] [address] Darline Starr Urea nitrogen [Mass/Vol] 30.0 mg/dL Critically high 7.0-18.0 [facility] Comment on above: Performed By: #### P OCGLUC #### [facility] [address] [address] [address] Darline Starr Urea nitrogen/Creatinine [Mass ratio] 14.2 mg/mg Normal [facility] Comment on above: Performed By: #### P OCGLUC #### [facility] [address] [address] [address] Darline Starr CBC AUTO DIFFon 07-20-2022 BASO # 0.0 103/ul Normal 0.0-0.1 [facility] Comment on above: Performed By: #### C K #### [facility] [address] [place] [address] Dr. Darline Starr Basophils/100 WBC (Bld) 0.2 % Normal 0.2-2.0 [facility] Comment on above: Performed By: #### C K #### [facility] [address] [place] [address] Dr. Darline Starr EO # 0.1 103/ul Normal 0.0-0.7 [facility] Comment on above: Performed By: #### C K #### [facility] [address] [place] [address] Dr. Darline Starr Eosinophils/100 WBC (Bld) 1.2 % Normal 0.9-7.0 [facility] Comment on above: Performed By: #### C K #### [facility] [address] [place] [address] Dr. Darline Starr Erythrocyte distribution width (RBC) [Ratio] 14.2 % Normal 11.0-15.0 [facility] Comment on above: Performed By: #### C K #### [facility] [address] [place] [address] Dr. Darline Starr Hematocrit (Bld) [Volume fraction] 41.4 % Critically low 42.0-54.0 [facility] Comment on above: Performed By: #### C K #### [facility] [address] [place] [address] Dr. Darline Starr Hemoglobin (Bld) [Mass/Vol] 13.7 g/dL Critically low 14.0-18.0 [facility] Comment on above: Performed By: #### C K #### [facility] [address] [place] [address] Dr. Darline Starr IG # 0.03 10e3/ul Normal 0.00-0.03 [facility] Comment on above: Performed By: #### C K #### [facility] [address] [place] [address] Dr. Darline Starr IG % 0.3 % Normal 0.0-0.5 [facility] Comment on above: Performed By: #### C K #### [facility] [address] [place] [address] Dr. Darline Starr LYMPH # 0.2 103/ul Critically low 1.2-3.8 [facility] Comment on above: Performed By: #### C K #### [facility] [address] [place] [address] Dr. Darline Starr Lymphocytes/100 WBC (Bld) 2.1 % Critically low 20.5-60.0 [facility] Comment on above: Performed By: #### C K #### [facility] [address] [place] [address] Dr. Darline Starr MANUAL DIFF REQ NO Normal [facility] Comment on above: Performed By: #### C K #### [facility] [address] [place] [address] Dr. Darline Starr MCH (RBC) [Entitic mass] 31.1 pg Normal 25.9-34.0 [facility] Comment on above: Performed By: #### C K #### [facility] [address] [place] [address] Dr. Darline Starr MCHC (RBC) [Mass/Vol] 33.1 g/dL Normal 29.9-35.2 [facility] Comment on above: Performed By: #### C K #### [facility] [address] [place] [address] Dr. Darline Starr MCV (RBC) [Entitic vol] 93.9 fL Normal 80.0-94.0 [facility] Comment on above: Performed By: #### C K #### [facility] [address] [place] [address] Dr. Darline Starr MONO # 0.3 103/ul Normal 0.3-0.8 [facility] Comment on above: Performed By: #### C K #### [facility] [address] [address] [address] Darline Starr Monocytes/100 WBC (Bld) 2.8 % Normal 1.7-12.0 [facility] Comment on above: Performed By: #### C K #### [facility] [address] [place] [address] Dr. Darline Starr NEUT # 10.2 103/ul Critically high 1.4-6.5 [facility] Comment on above: Performed By: #### C K #### [facility] [address] [place] [address] Dr. Darline Starr Neutrophils/100 WBC (Bld) 93.4 % Critically high 43.0-75.0 [facility] Comment on above: Performed By: #### C K #### [facility] [address] [place] [address] Dr. Darline Starr Platelet mean volume (Bld) [Entitic vol] 9.2 fL Critically low 9.5-13.5 [facility] Comment on above: Performed By: #### C K #### [facility] [address] [address] [address] Darline Starr PLT 140 103/ul Critically low 150-450 [facility] Comment on above: Performed By: #### C K #### [facility] [address] [place] [address] Dr. Darline Starr RBC 4.41 106/ul Critically low 4.70-6.10 [facility] Comment on above: Performed By: #### C K #### [facility] [address] [place] [address] Dr. Darline Starr WBC 10.9 103/ul Normal 4.0-11.0 [facility] Comment on above: Performed By: #### C K #### [facility] [address] [place] [address] Dr. Darline Starr CPKon 07-20-2022 CK [Catalytic activity/Vol] 128 U/L Normal 39-308 [facility] Comment on above: Performed By: #### M ALBCRL #### [facility] [address] [place] [address] Dr. Darline Starr [facility]on SARS-CoV-2 (COVID-19) RNA MILDRED+probe Ql (Unsp spec) Not detected Normal NOT DETECTED [facility] Comment on above: Result Comment: When diagnostic testing is negative, the possibility of a false negative should be considered in the context of a patient's recent exposures and the presence of clinical signs and symptoms consistent with SARS-CoV-2. This test is not yet approved or cleared by the [place] FDA. When there are no FDA-approved or cleared tests available, and other criteria are met, FDA can make tests available under an emergency access mechanism called an Emergency Use Authorization (EUA). The EUA for this test is supported by the [place] of Health and Human Service's declaration that circumstances exist to justify the emergency use of in vitro diagnostics for the detection and/or diagnosis of the virus that causes COVID-19. This EUA will remain in effect for the duration of the COVID-19 declaration justifying emergency of IVDs, unless it is terminated or revoked by the FDA (after which the test may no longer be used). Performed By: #### C K #### [facility] [address] [place] [address] Dr. Darline Starr GI PANEL (PCR)on 07-20-2022 Adenovirus F 40/41 Not detected Normal NOT DETECTED [facility] Comment on above: Performed By: #### P THINT #### [facility] [address] [place] [address] Dr. Darline Starr Astrovirus Not detected Normal NOT DETECTED [facility] Comment on above: Performed By: #### P THINT #### [facility] [address] [place] [address] Dr. Darline Martinez. Diff toxin A/B Not detected Normal NOT DETECTED [facility] Comment on above: Performed By: #### P THINT #### [facility] [address] [place] [address] Dr. Darline Starr Campylobacter Not detected Normal NOT DETECTED The [facility] Comment on above: Performed By: #### P THINT #### [facility] [address] [address] [address] Darline Starr Cryptosporidium Not detected Normal NOT DETECTED [facility] Comment on above: Performed By: #### P THINT #### [facility] [address] [address] [address] Darline Starr Cyclos. Cayetanensis Not detected Normal NOT DETECTED [facility] Comment on above: Performed By: #### P THINT #### [facility] [address] [place] [address] Dr. Darline Starr E. Coli O157 Not Applicable Normal Not Applicable [facility] Comment on above: Performed By: #### P THINT #### [facility] [address] [place] [address] Dr. Darline Starr E. histolytica Not detected Normal NOT DETECTED The [facility] Comment on above: Performed By: #### P THINT #### [facility] [address] [place] [address] Dr. Darline Starr EAEC Not detected Normal NOT DETECTED [facility] Comment on above: Performed By: #### P THINT #### [facility] [address] [place] [address] Dr. Darline Starr EIEC Not detected Normal NOT DETECTED [facility] Comment on above: Performed By: #### P THINT #### [facility] [address] [place] [address] Dr. Darline Starr EPEC Not detected Normal NOT DETECTED [facility] Comment on above: Performed By: #### P THINT #### [facility] [address] [place] [address] Dr. Darline Starr ETEC Not detected Normal NOT DETECTED [facility] Comment on above: Performed By: #### P THINT #### [facility] [address] [place] [address] Dr. Darline Starr G. Lamblia Not detected Normal NOT DETECTED [facility] Comment on above: Performed By: #### P THINT #### [facility] [address] [place] [address] Dr. Darline Starr GIPANEL CONTROLS PASSED Normal [facility] Comment on above: Performed By: #### P THINT #### [facility] [address] [address] [address] Darline ANGELO HEADER GI PANEL BACTERIA Normal [facility] Comment on above: Performed By: #### P THINT #### [facility] [address] [address] [address] Darline MORALES ECOLI GI PANEL DIARRHEAGEN IC E.COLI / SHIGELLA Normal [facility] Comment on above: Performed By: #### P THINT #### [facility] [address] [address] [address] Darline MORALES INFO SEE BELOW Normal [facility] Comment on above: Result Comment: EAEC - Enteroaggregative E. Coli EPEC- Enteropathogenic E. Coli ETEC- Enterotoxigenic E. Coli lt/st STEC- Shigella-like toxin-producing E. Coli stx1/stx2 EIEC- Shigella/Enteroinvasive E. Coli Performed By: #### P THINT #### [facility] [address] [address] [address] Darline MORALES PARASITES GI PANEL PARASITES Normal [facility] Comment on above: Performed By: #### P THINT #### [facility] [address] [address] [address] Darline MORALES VIRUS GI PANEL VIRUSES Normal [facility] Comment on above: Performed By: #### P THINT #### [facility] [address] [address] [address] Darline Starr Norovirus GI/GII Detected Abnormal NOT DETECTED [facility] Comment on above: Performed By: #### P THINT #### [facility] [address] [address] [address] Darline Gonzalez. Shigelloides Not detected Normal NOT DETECTED [facility] Comment on above: Performed By: #### P THINT #### [facility] [address] [address] [address] Darline Starr Rotavirus A Not detected Normal NOT DETECTED The [facility] Comment on above: Performed By: #### P THINT #### [facility] [address] [place] [address] Dr. Darline Starr Salmonella Not detected Normal NOT DETECTED [facility] Comment on above: Performed By: #### P THINT #### [facility] [address] [place] [address] Dr. Darline Starr Sapovirus Not detected Normal NOT DETECTED [facility] Comment on above: Performed By: #### P THINT #### [facility] [address] [place] [address] Dr. Darline Starr STEC Not detected Normal NOT DETECTED [facility] Comment on above: Performed By: #### P THINT #### [facility] [address] [place] [address] Dr. Darline Starr Vibrio Not detected Normal NOT DETECTED [facility] Comment on above: Performed By: #### P THINT #### [facility] [address] [place] [address] Dr. Darline Starr Vibrio Cholera Not detected Normal NOT DETECTED [facility] Comment on above: Performed By: #### P THINT #### [facility] [address] [place] [address] Dr. Darline Starr Y. Enterocolitica Not detected Normal NOT DETECTED [facility] Comment on above: Performed By: #### P THINT #### [facility] [address] [place] [address] Dr. Darline Starr LIPASEon 07-20-2022 Lipase [Catalytic activity/Vol] 95.0 U/L Normal 73.0-393.0 [facility] Comment on above: Performed By: #### M ALBCRL #### [facility] [address] [place] [address] Dr. Darline Starr PROF 14(COMP METB)on 023 Albumin [Mass/Vol] 3.3 g/dL Critically low 3.4-5.0 [facility] Comment on above: Performed By: #### M ALBCRL #### [facility] [address] [place] [address] Dr. Darline Starr Albumin/Globulin [Mass ratio] 1.0 {ratio} Normal [facility] Comment on above: Performed By: #### M ALBCRL #### [facility] [address] [place] [address] Dr. Darline Starr ALP [Catalytic activity/Vol] 107 U/L Normal 46-116 [facility] Comment on above: Performed By: #### M ALBCRL #### [facility] [address] [place] [address] Dr. Darline Starr ALT [Catalytic activity/Vol] 23 U/L Normal 16-63 [facility] Comment on above: Performed By: #### M ALBCRL #### [facility] [address] [place] [address] Dr. Darline Starr Anion gap [Moles/Vol] 12.2 mmol/L Normal [facility] Comment on above: Performed By: #### M ALBCRL #### [facility] [address] [place] [address] Dr. Darline Starr AST [Catalytic activity/Vol] 27 U/L Normal 15-37 [facility] Comment on above: Performed By: #### M ALBCRL #### [facility] [address] [place] [address] Dr. Darline Starr Bilirubin [Mass/Vol] 0.6 mg/dL Normal 0.2-1.0 [facility] Comment on above: Performed By: #### M ALBCRL #### [facility] [address] [place] [address] Dr. Darline Starr Calcium [Mass/Vol] 8.8 mg/dL Normal 8.5-10.1 [facility] Comment on above: Performed By: #### M ALBCRL #### [facility] [address] [place] [address] Dr. Darline Starr Chloride [Moles/Vol] 105 mmol/L Normal 98-107 [facility] Comment on above: Performed By: #### M ALBCRL #### [facility] [address] [place] [address] Dr. Darline Starr CO2 [Moles/Vol] 27.3 mmol/L Normal 21.0-32.0 [facility] Comment on above: Performed By: #### M ALBCRL #### [facility] [address] [address] [address] Darline Starr Creatinine [Mass/Vol] 1.46 mg/dL Critically high 0.70-1.30 [facility] Comment on above: Performed By: #### M ALBCRL #### [facility] [address] [address] [address] Darline Starr EGFR-AF RWANDAN 56 mL/min/1.73m2 Critically low >=60 [facility] Comment on above: Performed By: #### M ALBCRL #### [facility] [address] [place] [address] Dr. Darline Starr EGFR-NON AF RWANDAN 46 mL/min/1.73m2 Critically low >=60 [facility] Comment on above: Performed By: #### M ALBCRL #### [facility] [address] [place] [address] Dr. Darline Starr Globulin (S) [Mass/Vol] 3.3 g/dL Normal [facility] Comment on above: Performed By: #### M ALBCRL #### [facility] [address] [place] [address] Dr. Darline Starr Glucose [Mass/Vol] 149 mg/dL Critically high 74-106 [facility] Comment on above: Performed By: #### M ALBCRL #### [facility] [address] [address] [address] Darline Starr Potassium [Moles/Vol] 4.5 mmol/L Normal 3.5-5.1 [facility] Comment on above: Performed By: #### M ALBCRL #### [facility] [address] [place] [address] Dr. Darline Starr Protein [Mass/Vol] 6.6 g/dL Normal 6.4-8.2 [facility] Comment on above: Performed By: #### M ALBCRL #### [facility] [address] [place] [address] Dr. Darline Starr Sodium [Moles/Vol] 140 mmol/L Normal 136-145 [facility] Comment on above: Performed By: #### M ALBCRL #### [facility] [address] [address] [address] Darline Starr Urea nitrogen [Mass/Vol] 23.0 mg/dL Critically high 7.0-18.0 [facility] Comment on above: Performed By: #### M ALBCRL #### [facility] [address] [address] [address] Darlien Starr Urea nitrogen/Creatinine [Mass ratio] 15.8 mg/mg Normal [facility] Comment on above: Performed By: #### M ALBCRL #### [facility] [address] [place] [address] Dr. Darline Starr TROPONIN, HIGH SENSITIVITYon 07-20-2022 HSTROP 12.0 pg/mL Normal 4.0-76.1 [facility] Comment on above: Result Comment: CUT- OFF POINTS HAVE BEEN ESTABLISHED BASED ON THE FOURTH UNIVERSAL DEFINITIONS OF MYOCARDIAL INFARCTION. THE UPPER REFERENCE LIMIT (URL) OF TROPONIN, DEFINED THE 99TH PERCENTILE OF cTnI DISTRIBUTION IN A REFERENCE POPULATION, HAS BEEN CONFIRMED THE DECISION THRESHOLD FOR DC DIAGNOSIS. Performed By: #### M ALBCRL #### [facility] [address] [place] [address] Dr. Darline Starr XR ABD FLAT UP_PA Desi 07-20 XR ABD FLAT UP_PA CH EXAM: XR ABD FLAT UP_PA CH 07/20/2022 COMPARISON STUDY: CT of the abdomen and pelvis with contrast 03/10/2022. FINDINGS: A total of 4 images were obtained. HISTORY: CONSTIPATION, UNSPECIFIED IMPRESSION: 1. 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 Heart size is normal. Left-sided defibrillator device is identified. 2. Background sequela of old healed granulomatous disease noted. No dense consolidation, effusion, edema, failure, or pneumothorax. 3. Bowel pattern appears nonobstructive and is within normal limits. 4. Changes from atherosclerosis with peripheral vascular arterial disease are noted. There are multiple subcentimeter pelvic phleboliths. 5. 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 Patient overall appears somewhat obese. Electronically authenticated by: AZALIA FRANZ Date: 2022-07-20 13:40 Normal [facility] POINT OF CARE GLUCOSEon 03-0 Glucose [Mass/Vol] 97 mg/dL Normal 74-106 [facility] Comment on above: Performed By: #### P OCGLUC #### [facility] [address] [place] [address] Dr. Darline Starr ICD CLINIC CHECKon 3 AV Delay Adaptive Paced Minimum (ms) [address] [facility] AV Delay Adaptive Rate Maximum (bpm) 130 {beats}/min [facility] AV Delay Adaptive Rate Minimum (bpm) 90 {beats}/min [facility] AV Delay Adaptive Sensed Minimum (ms) [address] [facility] AV Delay Adaptive Status Medium [facility] AV Delay Paced (ms) 90 ms [facility] AV Delay Sensed (ms) 90 ms [facility] Johan LV Pacing Amplitude (volts) [address] [facility] Johan LV Pacing Polarity BI [facility] Johan LV Pacing Pulse Width (ms) 0.[address] [facility] Johan RA Pacing Amplitude (volts) [address] [facility] Johan RA Pacing Polarity BI [facility] Johan RA Pacing Pulse Width (ms) 0.[address] [facility] Johan RA Sensing Amplitude (mvolts) 0.[address] [facility] Johan RA Sensing Blanking Period (ms) [address] [facility] Johan RA Sensing Polarity BI [facility] Johan RA Sensing Refractory Period (ms) [address] [facility] Johan RV Pacing Amplitude (volts) 1.[address] [facility] Johan RV Pacing Polarity BI [facility] Johan RV Pacing Pulse Width (ms) 0.[address] [facility] Johan RV Sensing Amplitude (mvolts) 0.[address] [facility] Johan RV Sensing Blanking Period (ms) [address] [facility] Johan RV Sensing Polarity BI [facility] Detection Configuration (Vent) 1 - Zone [facility] ICD FastVT DetectionStatus DISABLED [facility] ICD-AMS EPISODES 170 {beats}/min [facility] ICD-Johan RV Sensing Refractory Period (ms) [address] [facility] ICD-Device Mfg Other [facility] ICD-FALLBACKRATE_BPM 70 {beats}/min [facility] ICD-Hysteresis Rate Off [facility] ICD-LEADIMPEDANCEATR IAL 337.[address] [facility] ICD-Percent Pacing (Atrial) 77 % [facility] ICD-Percent Pacing (Vent) 98 % [facility] ICD-PMT Intervention Atrial Pace [facility] ICD-PVC Intervention Off [facility] ICD-Rate Modulation Acceleration Reaction Fast [facility] ICD-Rate Modulation Deceleration Medium [facility] ICD-Rate Modulation [place] Auto (+2) [facility] ICD-Rate Modulation Threshold Auto (-0.5) [facility] ICD-Rhythm Sinus [facility] ICD-Shocks Aborted (Vent) [address] [facility] [id number] 0 [facility] ICD-SHOCKSABORTED 0 [facility] ICD-SHOCKSDELIVEREDV ENTRICULAR [address] [facility] Implant Date 10/18/[address] [facility] Lead Impedance (LV) 862.5 ohm [facility] Lead Impedance (RV) 487.5 ohm [facility] Lead Impedance High Voltage 65.[address] [facility] Lead1 Mfg STJ [facility] Lead2 Mfg STJ [facility] Lead3 Mfg STJ [facility] Location LV [facility] Location RA [facility] Location RV [facility] Lower Rate (bpm) 70 {beats}/min [facility] Max Sensor Rate (bpm) 110 {beats}/min [facility] [id number]_ DETECTIONS_STATUS ENABLED [facility] Model [id number] [place] HF [facility] Model 1458Q Quartet [facility] Model 2088TC Tendril STS [facility] Model 7122Q Durata SJ4 [facility] Pacemaker Dependent? NO [facility] Pacing Mode DDDR [facility] Serial Number [id number] [facility] Serial Number [id number] [facility] Serial Number [id number] [facility] Serial Number [id number] [facility] Therapy Status (Vent) Enabled [facility] Thresh LV Capture Amplitude (volts) 0.[address] [facility] Thresh LV Capture Duration (ms) 0.[address] [facility] Thresh RA Capture Amplitude (volts) 0.[address] [facility] Thresh RA Capture Duration (ms) 0.[address] [facility] Thresh RA Sensing Amplitude (mvolts) 1.[address] [facility] Thresh RV Capture Amplitude (VOLTS) 0.[address] [facility] Thresh RV Capture Duration (MS) 0.[address] [facility] Thresh RV Sensing Amplitude (MVOLTS) [address] [facility] Tracking Rate (bpm) 130 {beats}/min [facility] VF Zone Detection Interval [address] [facility] VF Zone Therapy Configuration 1 ATP(s) + 6 Shock(s) [facility] No Panel Informationon 07-04 BLANK _ [facility] Implant Date 03/23/[address] [facility] Covid-19 PCR (CVDTBH)on 05-21 SARS-CoV-2 (COVID-19) RNA MILDRED+probe Ql (Unsp spec) Not detected Normal NOT DETECTED [facility] Comment on above: Result Comment: This test is not yet approved or cleared by the [place] FDA. When there are no FDA-approved or cleared tests available, and other criteria are met, FDA can make tests available under an emergency access mechanism called an Emergency Use Authorization (EUA). The EUA for this test is supported by the [place] of Health and Human Service's (HHS's) declaration that circumstances exist to justify the emergency use of in vitro diagnostics for the detection and/or diagnosis of the virus that causes COVID-19. This EUA will remain in effect (meaning this test can be used) for the duration of the COVID-19 declaration justifying emergency of IVDs, unless it is terminated or revoked by FDA (after which the test may no longer be used). When diagnostic testing is negative, the possibility of a false negative should be considered in the context of a patient's recent exposures and the presence of clinical signs and symptoms consistent with SARS-CoV-2. Performed By: #### P THINT #### [facility] [address] [place] [address] Dr. Darline Starr ICD REMOTE CHECKon 2 AV Delay Adaptive Paced Minimum (ms) [address] [facility] AV Delay Adaptive Sensed Minimum (ms) [address] [facility] AV Delay Paced (ms) 90 ms [facility] AV Delay Sensed (ms) 90 ms [facility] Battery Voltage 2.[address] [facility] Johan LV Pacing Amplitude (volts) 2.[address] [facility] Johan LV Pacing Polarity BI [facility] Johan LV Pacing Pulse Width (ms) 0.[address] [facility] Johan RA Pacing Amplitude (volts) [address] [facility] Johan RA Pacing Polarity BI [facility] Johan RA Pacing Pulse Width (ms) 0.[address] [facility] Johan RA Sensing Amplitude (mvolts) 0.[address] [facility] Johan RA Sensing Polarity BI [facility] Johan RV Pacing Amplitude (volts) 1.[address] [facility] Johan RV Pacing Polarity BI [facility] Johan RV Pacing Pulse Width (ms) 0.[address] [facility] Johan RV Sensing Amplitude (mvolts) 0.[address] [facility] Johan RV Sensing Polarity BI [facility] Detection Configuration (Vent) 1 - Zone [facility] ICD FastVT DetectionStatus DISABLED [facility] ICD-AMS EPISODES 170 {beats}/min [facility] ICD-ATP Episodes (Vent) [address] [facility] ICD-Device Mfg Other [facility] ICD-Fast Ventricular Tachycardia [address] [facility] ICD-Fast Ventricular Tachycardia [address] [facility] ICD-LEADIMPEDANCEATR IAL [address] [facility] ICD-Percent Pacing (Atrial) 79 % [facility] ICD-Shocks Aborted (Vent) [address] [facility] [id number] 0 [facility] ICD-SHOCKSABORTED 0 [facility] ICD-SHOCKSDELIVEREDV ENTRICULAR [address] [facility] ICD-Ventricular Fibrillation [address] [facility] ICD-VVDELAY_MS [address] [facility] Implant Date 10/18/[address] [facility] Lead Impedance (LV) 760 ohm [facility] Lead Impedance (RV) 380 ohm [facility] Lead Impedance High Voltage [address] [facility] Lead1 Mfg STJ [facility] Lead2 Mfg STJ [facility] Lead3 Mfg STJ [facility] Location LV [facility] Location RA [facility] Location RV [facility] Lower Rate (bpm) 70 {beats}/min [facility] Max Sensor Rate (bpm) 110 {beats}/min [facility] MDT_PROG_TACHY_ZONE_ DETECTIONS_STATUS ENABLED [facility] Model [id number] [place] HF [facility] Model 1458Q Quartet [facility] Model 2088TC Tendril STS [facility] Model 7122Q Durata SJ4 [facility] Pacing Mode DDDR [facility] Serial Number [id number] [facility] Serial Number [id number] [facility] Serial Number [id number] [facility] Serial Number [id number] [facility] Test Charge Energy 40 J [facility] Therapy Status (Vent) Enabled [facility] Thresh LV Capture Amplitude (volts) [address] [facility] Thresh LV Capture Duration (ms) 0.[address] [facility] Thresh RA Capture Amplitude (volts) 0.[address] [facility] Thresh RA Capture Duration (ms) 0.[address] [facility] Thresh RA Sensing Amplitude (mvolts) 2.[address] [facility] Thresh RV Capture Amplitude (VOLTS) 0.[address] [facility] Thresh RV Capture Duration (MS) 0.[address] [facility] Thresh RV Sensing Amplitude (MVOLTS) [address] [facility] Tracking Rate (bpm) 130 {beats}/min [facility] VF Zone Detection Interval [address] [facility] Therapy Configuration 0 ATP(s) + 6 Shock(s) [facility] No Panel Informationon 04-20 BLANK _ [facility] Implant Date 03/23/[address] [facility] CBC AUTO DIFFon 03-27-2022 BASO # 0.1 103/ul Normal 0.0-0.1 [facility] Comment on above: Performed By: #### P OCGLUC #### [facility] [address] [address] [address] Darline Starr Basophils/100 WBC (Bld) 0.7 % Normal 0.2-2.0 [facility] Comment on above: Performed By: #### P OCGLUC #### [facility] [address] [address] [address] Darline Starr EO # 0.2 103/ul Normal 0.0-0.7 [facility] Comment on above: Performed By: #### P OCGLUC #### [facility] [address] [address] [address] Darline Starr Eosinophils/100 WBC (Bld) 1.9 % Normal 0.9-7.0 [facility] Comment on above: Performed By: #### P OCGLUC #### [facility] [address] [place] [address] Dr. Darline Starr Erythrocyte distribution width (RBC) [Ratio] 14.5 % Normal 11.0-15.0 [facility] Comment on above: Performed By: #### P OCGLUC #### [facility] [address] [place] [address] Dr. Darline Starr Hematocrit (Bld) [Volume fraction] 37.2 % Critically low 42.0-54.0 [facility] Comment on above: Performed By: #### P OCGLUC #### [facility] [address] [place] [address] Dr. Darline Starr Hemoglobin (Bld) [Mass/Vol] 12.3 g/dL Critically low 14.0-18.0 [facility] Comment on above: Performed By: #### P OCGLUC #### [facility] [address] [place] [address] Dr. Darline Starr IG # 0.03 10e3/ul Normal 0.00-0.03 [facility] Comment on above: Performed By: #### P OCGLUC #### [facility] [address] [place] [address] Dr. Darline Starr IG % 0.3 % Normal 0.0-0.5 [facility] Comment on above: Performed By: #### P OCGLUC #### [facility] [address] [place] [address] Dr. Darline Starr LYMPH # 1.1 103/ul Critically low 1.2-3.8 [facility] Comment on above: Performed By: #### P OCGLUC #### [facility] [address] [place] [address] Dr. Darline Starr Lymphocytes/100 WBC (Bld) 12.9 % Critically low 20.5-60.0 [facility] Comment on above: Performed By: #### P OCGLUC #### [facility] [address] [place] [address] Dr. Darline Starr MANUAL DIFF REQ NO Normal [facility] Comment on above: Performed By: #### P OCGLUC #### [facility] [address] [place] [address] Dr. Darline Starr MCH (RBC) [Entitic mass] 31.9 pg Normal 25.9-34.0 [facility] Comment on above: Performed By: #### P OCGLUC #### [facility] [address] [address] [address] Darline Starr MCHC (RBC) [Mass/Vol] 33.1 g/dL Normal 29.9-35.2 [facility] Comment on above: Performed By: #### P OCGLUC #### [facility] [address] [place] [address] Dr. Darline Starr MCV (RBC) [Entitic vol] 96.6 fL Critically high 80.0-94.0 [facility] Comment on above: Performed By: #### P OCGLUC #### [facility] [address] [place] [address] Dr. Darline Starr MONO # 0.7 103/ul Normal 0.3-0.8 [facility] Comment on above: Performed By: #### P OCGLUC #### [facility] [address] [place] [address] Dr. Darline Starr Monocytes/100 WBC (Bld) 7.4 % Normal 1.7-12.0 [facility] Comment on above: Performed By: #### P OCGLUC #### [facility] [address] [place] [address] Dr. Darline Starr NEUT # 6.7 103/ul Critically high 1.4-6.5 [facility] Comment on above: Performed By: #### P OCGLUC #### [facility] [address] [place] [address] Dr. Darline Starr Neutrophils/100 WBC (Bld) 76.8 % Critically high 43.0-75.0 [facility] Comment on above: Performed By: #### P OCGLUC #### [facility] [address] [place] [address] Dr. Darline Starr Platelet mean volume (Bld) [Entitic vol] 9.7 fL Normal 9.5-13.5 [facility] Comment on above: Performed By: #### P OCGLUC #### [facility] [address] [place] [address] Dr. Darline Starr PLT 236 103/ul Normal 150-450 [facility] Comment on above: Performed By: #### P OCGLUC #### [facility] [address] [address] [address] Darline Starr RBC 3.85 106/ul Critically low 4.70-6.10 [facility] Comment on above: Performed By: #### P OCGLUC #### [facility] [address] [address] [address] Darline Starr WBC 8.7 103/ul Normal 4.0-11.0 [facility] Comment on above: Performed By: #### P OCGLUC #### [facility] [address] [address] [address] Darline Starr GLYCOHEMOGLOBIN A1Con 2021 ADA RECOMMENDATION SEE BELOW Normal [facility] Comment on above: Result Comment: ADA RECOMMENDED LIMIT 4.0 - 6.0 ADA THERAPEUTIC TARGET < 7.0 ACTION SUGGESTED > 7.0 Performed By: #### P OCGLUC #### [facility] [address] [address] [address] Darline Starr Glucose [Mass/Vol] 134 mg/dL Normal [facility] Comment on above: Performed By: #### P OCGLUC #### [facility] [address] [address] [address] Darline Starr HbA1c (Bld) [Mass fraction] 6.3 % Critically high 4.5-6.2 [facility] Comment on above: Performed By: #### P OCGLUC #### [facility] [address] [address] [address] Darline Starr LIPID PROFILEon 03-27-2022 CHOL-HDL RATIO NORM SEE BELOW Normal [facility] Comment on above: Result Comment: 3.3 - 4.4 LOW RISK 4.4 - 7.1 AVERAGE RISK 7.1 - 11.0 MODERATE RISK >11.0 HIGH RISK Performed By: #### P OCGLUC #### [facility] [address] [address] [address] Darline Starr Cholesterol [Mass/Vol] 109 mg/dL Normal <=200 [facility] Comment on above: Performed By: #### P OCGLUC #### [facility] [address] [address] [address] Darline Starr Cholesterol in HDL [Mass/Vol] 39 mg/dL Critically low 40-60 [facility] Comment on above: Performed By: #### P OCGLUC #### [facility] [address] [address] [address] Darline Starr Cholesterol in LDL [Mass/Vol] 32.0 mg/dL Normal [facility] Comment on above: Performed By: #### P OCGLUC #### [facility] [address] [address] [address] Darline Starr Cholesterol.total/Ch olesterol in HDL [Mass ratio] 2.8 {ratio} Normal [facility] Comment on above: Performed By: #### P OCGLUC #### [facility] [address] [address] [address] Darline Starr HDL NORMAL > or = 60 mg/dl - LO W CARDIOVASCULAR RISK <40 mg/dl - HIGH CARDIOVASCULAR RISK Normal [facility] Comment on above: Performed By: #### P OCGLUC #### [facility] [address] [address] [address] Darline Starr LDL CALC NORMAL SEE BELOW Normal [facility] Comment on above: Result Comment: <100 mg/dl OPTIMAL 100 - 129 mg/dl NEAR OR ABOVE OPTIMAL 130 - 159 mg/dl BORDERLINE HIGH 160 - 189 mg/dl HIGH >190 mg/dl VERY HIGH Performed By: #### P OCGLUC #### [facility] [address] [address] [address] Darline Starr Triglyceride [Mass/Vol] 190 mg/dL Critically high <=150 [facility] Comment on above: Performed By: #### P OCGLUC #### [facility] [address] [address] [address] Darline Starr VLDL CALC 38.0 mg/dL Normal [facility] Comment on above: Performed By: #### P OCGLUC #### [facility] [address] [address] [address] Darline Starr LIVER PROFILEon 03-27-2022 Albumin [Mass/Vol] 3.3 g/dL Critically low 3.4-5.0 [facility] Comment on above: Performed By: #### P OCGLUC #### [facility] [address] [place] [address] Dr. Darline Starr Albumin/Globulin [Mass ratio] 0.9 {ratio} Normal [facility] Comment on above: Performed By: #### P OCGLUC #### [facility] [address] [address] [address] Darline Starr ALP [Catalytic activity/Vol] 103 U/L Normal 46-116 [facility] Comment on above: Performed By: #### P OCGLUC #### [facility] [address] [place] [address] Dr. Darline Starr ALT [Catalytic activity/Vol] 25 U/L Normal 16-63 [facility] Comment on above: Performed By: #### P OCGLUC #### [facility] [address] [place] [address] Dr. Darline Starr AST [Catalytic activity/Vol] 18 U/L Normal 15-37 [facility] Comment on above: Performed By: #### P OCGLUC #### [facility] [address] [place] [address] Dr. Darline Starr BILI, CONJUGATED 0.1 mg/dL Normal 0.0-0.2 [facility] Comment on above: Performed By: #### P OCGLUC #### [facility] [address] [place] [address] Dr. Darline Starr Bilirubin [Mass/Vol] 0.3 mg/dL Normal 0.2-1.0 [facility] Comment on above: Performed By: #### P OCGLUC #### [facility] [address] [place] [address] Dr. Darline Starr Globulin (S) [Mass/Vol] 3.7 g/dL Normal [facility] Comment on above: Performed By: #### P OCGLUC #### [facility] [address] [place] [address] Dr. Darline Starr Protein [Mass/Vol] 7.0 g/dL Normal 6.4-8.2 [facility] Comment on above: Performed By: #### P OCGLUC #### [facility] [address] [address] [address] Darline Strar PROF CHEM 8 (BAS METB)on Anion gap [Moles/Vol] 11.7 mmol/L Normal [facility] Comment on above: Performed By: #### P OCGLUC #### [facility] [address] [address] [address] Darline Starr Calcium [Mass/Vol] 8.9 mg/dL Normal 8.5-10.1 [facility] Comment on above: Performed By: #### P OCGLUC #### [facility] [address] [place] [address] Dr. Darline Starr Chloride [Moles/Vol] 104 mmol/L Normal 98-107 [facility] Comment on above: Performed By: #### P OCGLUC #### [facility] [address] [address] [address] Darline Starr CO2 [Moles/Vol] 27.8 mmol/L Normal 21.0-32.0 [facility] Comment on above: Performed By: #### P OCGLUC #### [facility] [address] [place] [address] Dr. Darline Starr Creatinine [Mass/Vol] 1.64 mg/dL Critically high 0.70-1.30 [facility] Comment on above: Performed By: #### P OCGLUC #### [facility] [address] [place] [address] Dr. Darline Starr EGFR-AF RWANDAN 49 mL/min/1.73m2 Critically low >=60 [facility] Comment on above: Performed By: #### P OCGLUC #### [facility] [address] [place] [address] Dr. Darline Starr EGFR-NON AF RWANDAN 41 mL/min/1.73m2 Critically low >=60 [facility] Comment on above: Performed By: #### P OCGLUC #### [facility] [address] [place] [address] Dr. Darline Starr Glucose [Mass/Vol] 121 mg/dL Critically high 74-106 [facility] Comment on above: Performed By: #### P OCGLUC #### [facility] [address] [address] [address] Darline Starr Potassium [Moles/Vol] 4.5 mmol/L Normal 3.5-5.1 [facility] Comment on above: Performed By: #### P OCGLUC #### [facility] [address] [address] [address] Darline Starr Sodium [Moles/Vol] 139 mmol/L Normal 136-145 [facility] Comment on above: Performed By: #### P OCGLUC #### [facility] [address] [address] [address] Darline Starr Urea nitrogen [Mass/Vol] 23.0 mg/dL Critically high 7.0-18.0 [facility] Comment on above: Performed By: #### P OCGLUC #### [facility] [address] [place] [address] Dr. Darline Starr Urea nitrogen/Creatinine [Mass ratio] 14.0 mg/mg Normal [facility] Comment on above: Performed By: #### P OCGLUC #### [facility] [address] [place] [address] Dr. Darline Starr TSHon 03-27-2022 TSH 2.743 uIU/mL Normal 0.358-3.740 [facility] Comment on above: Performed By: #### P OCGLUC #### [facility] [address] [place] [address] Dr. Darline Starr VITAMIN D 25 OHon 03-27-2022 VIT D 25-OH 46.9 ng/mL Normal [facility] Comment on above: Performed By: #### C K #### [facility] [address] [place] [address] Dr. Darline Starr VIT D RANGES SEE BELOW Normal [facility] Comment on above: Result Comment: <20 ng/mL Vit D deficient 20 - <30 ng/mL Vit D insufficient 30 - 100 ng/mL Vit D sufficient >100 ng/mL Potential Toxicity Performed By: #### C K #### [facility] [address] [place] [address] Dr. Darline Starr CBC AUTO DIFFon 03-12-2022 BASO # 0.1 103/ul Normal 0.0-0.1 [facility] Comment on above: Performed By: #### C BC #### [facility] [address] [place] [address] Dr. Darline Starr Basophils/100 WBC (Bld) 0.5 % Normal 0.2-2.0 [facility] Comment on above: Performed By: #### C BC #### [facility] [address] [place] [address] Dr. Darline Starr EO # 0.4 103/ul Normal 0.0-0.7 [facility] Comment on above: Performed By: #### C BC #### [facility] [address] [place] [address] Dr. Darline Starr Eosinophils/100 WBC (Bld) 3.8 % Normal 0.9-7.0 [facility] Comment on above: Performed By: #### C BC #### [facility] [address] [place] [address] Dr. Darline Starr Erythrocyte distribution width (RBC) [Ratio] 13.3 % Normal 11.0-15.0 [facility] Comment on above: Performed By: #### C BC #### [facility] [address] [place] [address] Dr. Darline Starr Hematocrit (Bld) [Volume fraction] 31.6 % Critically low 42.0-54.0 [facility] Comment on above: Performed By: #### C BC #### [facility] [address] [place] [address] Dr. Darline Starr Hemoglobin (Bld) [Mass/Vol] 10.4 g/dL Critically low 14.0-18.0 [facility] Comment on above: Performed By: #### C BC #### [facility] [address] [place] [address] Dr. Darline Starr IG # 0.06 10e3/ul Critically high 0.00-0.03 [facility] Comment on above: Performed By: #### C BC #### [facility] [address] [place] [address] Dr. Darline Starr IG % 0.6 % Critically high 0.0-0.5 [facility] Comment on above: Performed By: #### C BC #### [facility] [address] [place] [address] Dr. Darline Starr LYMPH # 1.4 103/ul Normal 1.2-3.8 [facility] Comment on above: Performed By: #### C BC #### [facility] [address] [place] [address] Dr. Darline Starr Lymphocytes/100 WBC (Bld) 15.1 % Critically low 20.5-60.0 [facility] Comment on above: Performed By: #### C BC #### [facility] [address] [place] [address] Dr. Darline Starr MANUAL DIFF REQ NO Normal [facility] Comment on above: Performed By: #### C BC #### [facility] [address] [place] [address] Dr. Darline Starr MCH (RBC) [Entitic mass] 31.4 pg Normal 25.9-34.0 [facility] Comment on above: Performed By: #### C BC #### [facility] [address] [place] [address] Dr. Darline Starr MCHC (RBC) [Mass/Vol] 32.9 g/dL Normal 29.9-35.2 [facility] Comment on above: Performed By: #### C BC #### [facility] [address] [place] [address] Dr. Darline Starr MCV (RBC) [Entitic vol] 95.5 fL Critically high 80.0-94.0 [facility] Comment on above: Performed By: #### C BC #### [facility] [address] [place] [address] Dr. Darline Starr MONO # 0.7 103/ul Normal 0.3-0.8 [facility] Comment on above: Performed By: #### C BC #### [facility] [address] [address] [address] Darline Starr Monocytes/100 WBC (Bld) 7.5 % Normal 1.7-12.0 [facility] Comment on above: Performed By: #### C BC #### [facility] [address] [address] [address] Darline Starr NEUT # 6.8 103/ul Critically high 1.4-6.5 [facility] Comment on above: Performed By: #### C BC #### [facility] [address] [address] [address] Darline Starr Neutrophils/100 WBC (Bld) 72.5 % Normal 43.0-75.0 [facility] Comment on above: Performed By: #### C BC #### [facility] [address] [place] [address] Dr. Darline Starr Platelet mean volume (Bld) [Entitic vol] 9.3 fL Critically low 9.5-13.5 [facility] Comment on above: Performed By: #### C BC #### [facility] [address] [place] [address] Dr. Darline Starr PLT 194 103/ul Normal 150-450 [facility] Comment on above: Performed By: #### C BC #### [facility] [address] [place] [address] Dr. Darline Starr RBC 3.31 106/ul Critically low 4.70-6.10 [facility] Comment on above: Performed By: #### C BC #### [facility] [address] [place] [address] Dr. Darline Starr WBC 9.4 103/ul Normal 4.0-11.0 [facility] Comment on above: Performed By: #### C BC #### [facility] [address] [place] [address] Dr. Darline Starr HEMOGLOBIN AND HEMATOCRITon 03-12-2022 Hematocrit (Bld) [Volume fraction] 32.7 % Critically low 42.0-54.0 [facility] Comment on above: Performed By: #### P OCGLUC #### [facility] [address] [address] [address] Darline Starr Hemoglobin (Bld) [Mass/Vol] 10.9 g/dL Critically low 14.0-18.0 [facility] Comment on above: Performed By: #### P OCGLUC #### [facility] [address] [place] [address] Dr. Darline Starr POINT OF CARE GLUCOSEon 02-18 Glucose [Mass/Vol] 196 mg/dL Critically high 74-106 [facility] Comment on above: Performed By: #### P OCGLUC #### [facility] [address] [place] [address] Dr. Darline Starr PROF 14(COMP METB)on 022 Albumin [Mass/Vol] 2.5 g/dL Critically low 3.4-5.0 [facility] Comment on above: Performed By: #### C K #### [facility] [address] [place] [address] Dr. Darline Starr Albumin/Globulin [Mass ratio] 0.7 {ratio} Normal [facility] Comment on above: Performed By: #### C K #### [facility] [address] [place] [address] Dr. Darline Starr ALP [Catalytic activity/Vol] 78 U/L Normal 46-116 [facility] Comment on above: Performed By: #### C K #### [facility] [address] [place] [address] Dr. Darline Starr ALT [Catalytic activity/Vol] 34 U/L Normal 16-63 [facility] Comment on above: Performed By: #### C K #### [facility] [address] [place] [address] Dr. Darline Starr Anion gap [Moles/Vol] 8.5 mmol/L Normal [facility] Comment on above: Performed By: #### C K #### [facility] [address] [place] [address] Dr. Darline Starr AST [Catalytic activity/Vol] 24 U/L Normal 15-37 [facility] Comment on above: Performed By: #### C K #### [facility] [address] [place] [address] Dr. Darline Starr Bilirubin [Mass/Vol] 0.3 mg/dL Normal 0.2-1.0 [facility] Comment on above: Performed By: #### C K #### [facility] [address] [place] [address] Dr. Darline Starr Calcium [Mass/Vol] 8.5 mg/dL Normal 8.5-10.1 [facility] Comment on above: Performed By: #### C K #### [facility] [address] [place] [address] Dr. Darline Starr Chloride [Moles/Vol] 107 mmol/L Normal 98-107 [facility] Comment on above: Performed By: #### C K #### [facility] [address] [place] [address] Dr. Darline Starr CO2 [Moles/Vol] 26.5 mmol/L Normal 21.0-32.0 [facility] Comment on above: Performed By: #### C K #### [facility] [address] [place] [address] Dr. Darline Starr Creatinine [Mass/Vol] 1.55 mg/dL Critically high 0.70-1.30 [facility] Comment on above: Performed By: #### C K #### [facility] [address] [place] [address] Dr. Darline Starr EGFR-AF RWANDAN 53 mL/min/1.73m2 Critically low >=60 [facility] Comment on above: Performed By: #### C K #### [facility] [address] [place] [address] Dr. Darline Starr EGFR-NON AF RWANDAN 43 mL/min/1.73m2 Critically low >=60 [facility] Comment on above: Performed By: #### C K #### [facility] [address] [place] [address] Dr. Darline Starr Globulin (S) [Mass/Vol] 3.5 g/dL Normal [facility] Comment on above: Performed By: #### C K #### [facility] [address] [address] [address] Darline Starr Glucose [Mass/Vol] 71 mg/dL Critically low 74-106 [facility] Comment on above: Performed By: #### C K #### [facility] [address] [address] [address] Darline Starr Potassium [Moles/Vol] 4.0 mmol/L Normal 3.5-5.1 [facility] Comment on above: Performed By: #### C K #### [facility] [address] [place] [address] Dr. Darline Starr Protein [Mass/Vol] 6.0 g/dL Critically low 6.4-8.2 [facility] Comment on above: Performed By: #### C K #### [facility] [address] [place] [address] Dr. Darline Starr Sodium [Moles/Vol] 138 mmol/L Normal 136-145 [facility] Comment on above: Performed By: #### C K #### [facility] [address] [place] [address] Dr. Darline Starr Urea nitrogen [Mass/Vol] 25.0 mg/dL Critically high 7.0-18.0 [facility] Comment on above: Performed By: #### C K #### [facility] [address] [place] [address] Dr. Darline Starr Urea nitrogen/Creatinine [Mass ratio] 16.1 mg/mg Normal [facility] Comment on above: Performed By: #### C K #### [facility] [address] [place] [address] Dr. Darline Starr HEMOGLOBIN AND HEMATOCRITon 03-11-2022 Hematocrit (Bld) [Volume fraction] 33.8 % Critically low 42.0-54.0 [facility] Comment on above: Performed By: #### M ALBCRL #### [facility] [address] [place] [address] Dr. Darline Starr Hemoglobin (Bld) [Mass/Vol] 11.3 g/dL Critically low 14.0-18.0 [facility] Comment on above: Performed By: #### M ALBCRL #### [facility] [address] [place] [address] Dr. Darline Starr POINT OF CARE GLUCOSEon 02-18 Glucose [Mass/Vol] 191 mg/dL Critically high 74-106 [facility] Comment on above: Performed By: #### P OCGLUC #### [facility] [address] [place] [address] Dr. Darline Starr Glucose [Mass/Vol] 138 mg/dL Critically high 74-106 [facility] Comment on above: Performed By: #### P THINT #### [facility] [address] [place] [address] Dr. Darline Starr Glucose [Mass/Vol] 135 mg/dL Critically high 74-106 [facility] Comment on above: Performed By: #### P OCGLUC #### [facility] [address] [place] [address] Dr. Darline Starr PROF 14(COMP METB)on 022 Albumin [Mass/Vol] 2.5 g/dL Critically low 3.4-5.0 [facility] Comment on above: Performed By: #### C K #### [facility] [address] [place] [address] Dr. Darline Starr Albumin/Globulin [Mass ratio] 0.7 {ratio} Normal [facility] Comment on above: Performed By: #### C K #### [facility] [address] [place] [address] Dr. Darline Starr ALP [Catalytic activity/Vol] 84 U/L Normal 46-116 [facility] Comment on above: Performed By: #### C K #### [facility] [address] [place] [address] Dr. Darline Starr ALT [Catalytic activity/Vol] 29 U/L Normal 16-63 [facility] Comment on above: Performed By: #### C K #### [facility] [address] [place] [address] Dr. Darline Starr Anion gap [Moles/Vol] 11.4 mmol/L Normal [facility] Comment on above: Performed By: #### C K #### [facility] [address] [address] [address] Darline Starr AST [Catalytic activity/Vol] 21 U/L Normal 15-37 [facility] Comment on above: Performed By: #### C K #### [facility] [address] [address] [address] Darline Starr Bilirubin [Mass/Vol] 0.3 mg/dL Normal 0.2-1.0 [facility] Comment on above: Performed By: #### C K #### [facility] [address] [place] [address] Dr. Darline Starr Calcium [Mass/Vol] 8.4 mg/dL Critically low 8.5-10.1 [facility] Comment on above: Performed By: #### C K #### [facility] [address] [place] [address] Dr. Darline Starr Chloride [Moles/Vol] 104 mmol/L Normal 98-107 [facility] Comment on above: Performed By: #### C K #### [facility] [address] [place] [address] Dr. Darline Starr CO2 [Moles/Vol] 25.3 mmol/L Normal 21.0-32.0 [facility] Comment on above: Performed By: #### C K #### [facility] [address] [place] [address] Dr. Darline Starr Creatinine [Mass/Vol] 1.60 mg/dL Critically high 0.70-1.30 [facility] Comment on above: Performed By: #### C K #### [facility] [address] [place] [address] Dr. Darline Starr EGFR-AF RWANDAN 51 mL/min/1.73m2 Critically low >=60 [facility] Comment on above: Performed By: #### C K #### [facility] [address] [place] [address] Dr. Darline Starr EGFR-NON AF RWANDAN 42 mL/min/1.73m2 Critically low >=60 [facility] Comment on above: Performed By: #### C K #### [facility] [address] [place] [address] Dr. Darline Starr Globulin (S) [Mass/Vol] 3.8 g/dL Normal [facility] Comment on above: Performed By: #### C K #### [facility] [address] [address] [address] Darline Starr Glucose [Mass/Vol] 138 mg/dL Critically high 74-106 [facility] Comment on above: Performed By: #### C K #### [facility] [address] [place] [address] Dr. Darline Starr Potassium [Moles/Vol] 3.7 mmol/L Normal 3.5-5.1 [facility] Comment on above: Performed By: #### C K #### [facility] [address] [place] [address] Dr. Darline Starr Protein [Mass/Vol] 6.3 g/dL Critically low 6.4-8.2 [facility] Comment on above: Performed By: #### C K #### [facility] [address] [place] [address] Dr. Darline Starr Sodium [Moles/Vol] 137 mmol/L Normal 136-145 [facility] Comment on above: Performed By: #### C K #### [facility] [address] [place] [address] Dr. Darline Starr Urea nitrogen [Mass/Vol] 22.0 mg/dL Critically high 7.0-18.0 [facility] Comment on above: Performed By: #### C K #### [facility] [address] [place] [address] Dr. Darline Starr Urea nitrogen/Creatinine [Mass ratio] 13.8 mg/mg Normal [facility] Comment on above: Performed By: #### C K #### [facility] [address] [place] [address] Dr. Darline Starr CBC AUTO DIFFon 03-10-2022 BASO # 0.0 103/ul Normal 0.0-0.1 [facility] Comment on above: Performed By: #### M ALBCRL #### [facility] [address] [place] [address] Dr. Darline Starr Basophils/100 WBC (Bld) 0.2 % Normal 0.2-2.0 [facility] Comment on above: Performed By: #### M ALBCRL #### [facility] [address] [place] [address] Dr. Darline Starr EO # 0.2 103/ul Normal 0.0-0.7 [facility] Comment on above: Performed By: #### M ALBCRL #### [facility] [address] [place] [address] Dr. Darline Starr Eosinophils/100 WBC (Bld) 1.4 % Normal 0.9-7.0 [facility] Comment on above: Performed By: #### M ALBCRL #### [facility] [address] [place] [address] Dr. Darline Starr Erythrocyte distribution width (RBC) [Ratio] 13.4 % Normal 11.0-15.0 [facility] Comment on above: Performed By: #### M ALBCRL #### [facility] [address] [place] [address] Dr. Darline Starr Hematocrit (Bld) [Volume fraction] 38.1 % Critically low 42.0-54.0 [facility] Comment on above: Performed By: #### M ALBCRL #### [facility] [address] [place] [address] Dr. Darline Starr Hemoglobin (Bld) [Mass/Vol] 12.7 g/dL Critically low 14.0-18.0 [facility] Comment on above: Performed By: #### M ALBCRL #### [facility] [address] [place] [address] Dr. Darline Starr IG # 0.07 10e3/ul Critically high 0.00-0.03 [facility] Comment on above: Performed By: #### M ALBCRL #### [facility] [address] [address] [address] Darline Starr IG % 0.5 % Normal 0.0-0.5 [facility] Comment on above: Performed By: #### M ALBCRL #### [facility] [address] [address] [address] Darline Satrr LYMPH # 1.6 103/ul Normal 1.2-3.8 [facility] Comment on above: Performed By: #### M ALBCRL #### [facility] [address] [address] [address] Darline Starr Lymphocytes/100 WBC (Bld) 12.7 % Critically low 20.5-60.0 [facility] Comment on above: Performed By: #### M ALBCRL #### [facility] [address] [place] [address] Dr. Darline Starr MANUAL DIFF REQ NO Normal [facility] Comment on above: Performed By: #### M ALBCRL #### [facility] [address] [place] [address] Dr. Darline Starr MCH (RBC) [Entitic mass] 31.8 pg Normal 25.9-34.0 [facility] Comment on above: Performed By: #### M ALBCRL #### [facility] [address] [place] [address] Dr. Darline Starr MCHC (RBC) [Mass/Vol] 33.3 g/dL Normal 29.9-35.2 [facility] Comment on above: Performed By: #### M ALBCRL #### [facility] [address] [place] [address] Dr. Darline Starr MCV (RBC) [Entitic vol] 95.5 fL Critically high 80.0-94.0 [facility] Comment on above: Performed By: #### M ALBCRL #### [facility] [address] [place] [address] Dr. Darline Starr MONO # 1.2 103/ul Critically high 0.3-0.8 [facility] Comment on above: Performed By: #### M ALBCRL #### [facility] [address] [address] [address] Darline Starr Monocytes/100 WBC (Bld) 9.6 % Normal 1.7-12.0 [facility] Comment on above: Performed By: #### M ALBCRL #### [facility] [address] [address] [address] Darline Starr NEUT # 9.6 103/ul Critically high 1.4-6.5 [facility] Comment on above: Performed By: #### M ALBCRL #### [facility] [address] [place] [address] Dr. Darline Starr Neutrophils/100 WBC (Bld) 75.6 % Critically high 43.0-75.0 [facility] Comment on above: Performed By: #### M ALBCRL #### [facility] [address] [place] [address] Dr. Darline Starr Platelet mean volume (Bld) [Entitic vol] 9.3 fL Critically low 9.5-13.5 [facility] Comment on above: Performed By: #### M ALBCRL #### [facility] [address] [address] [address] Darline Starr PLT 197 103/ul Normal 150-450 [facility] Comment on above: Performed By: #### M ALBCRL #### [facility] [address] [place] [address] Dr. Darline Starr RBC 3.99 106/ul Critically low 4.70-6.10 [facility] Comment on above: Performed By: #### M ALBCRL #### [facility] [address] [place] [address] Dr. Darline Starr WBC 12.8 103/ul Critically high 4.0-11.0 [facility] Comment on above: Performed By: #### M ALBCRL #### [facility] [address] [place] [address] ABD/PELV W CONon 03-10-20 CT ABD/PELV W CON EXAMINATION: CT ABD/PELV W CON, 03/10/2022 4:52 AM EDT HISTORY: Hemorrhage of rectum and anus COMPARISON: 08/22/2012 TECHNIQUE: CT scan of the abdomen and pelvis was performed with IV contrast. CT dose reduction technique was used, including Automated Exposure Control. FINDINGS: LUNG BASES: Pacemaker wires. LIVER: No enlargement, atrophy, abnormal density, or significant focal lesion. BILIARY: Cholelithiasis without CT evidence of acute cholecystitis PANCREAS: No lesion, fluid collection, ductal dilatation, or atrophy. SPLEEN: No enlargement or focal lesion. ADRENALS: No mass or enlargement. KIDNEYS: No mass, obstruction, or calcification. BOWEL/MESENTERY: Colonic diverticulosis without evidence of acute diverticulitis. Nonobstructive bowel gas pattern. Normal appendix. AORTA/VASCULAR: No aortic aneurysm. Moderate diffuse atherosclerosis RETROPERITONEUM: No mass or adenopathy. LYMPH NODES: No adenopathy. URINARY BLADDER: No visible focal wall thickening, lesion, or calculus. PELVIC ORGANS: Enlarged heterogeneous prostate gland measuring 5.7 cm. Prominent appearance of the seminal vesicles with mild surrounding mesenteric stranding ABDOMINAL WALL: No mass or hernia. BONES: Severe degenerative changes OTHER: Negative. IMPRESSION: No abnormality of the colon and rectum observed Enlarged heterogeneous prostate gland and seminal vesicles, consider prostatitis Cholelithiasis without CT evidence of acute cholecystitis Electronically authenticated by: QUIANA LEBLANC Date: 2022-03-10 06:20 Normal [facility] CULTURE URINEon 03-10-2022 CULTURE URINE Culture Observations : VERY LIGHT GROWTH OF MIXED SKIN MAT. NO POTENTIAL PATHOGENS SEEN. Normal [facility] Comment on above: Performed By: #### P OCGLUC #### [facility] [address] [place] [address] Dr. Darline Starr [facility]18 SARS-CoV-2 (COVID-19) RNA MILDRED+probe Ql (Unsp spec) Not detected Normal NOT DETECTED [facility] Comment on above: Result Comment: When diagnostic testing is negative, the possibility of a false negative should be considered in the context of a patient's recent exposures and the presence of clinical signs and symptoms consistent with SARS-CoV-2. This test is not yet approved or cleared by the [place] FDA. When there are no FDA-approved or cleared tests available, and other criteria are met, FDA can make tests available under an emergency access mechanism called an Emergency Use Authorization (EUA). The EUA for this test is supported by the [place] of Health and Human Service's declaration that circumstances exist to justify the emergency use of in vitro diagnostics for the detection and/or diagnosis of the virus that causes COVID-19. This EUA will remain in effect for the duration of the COVID-19 declaration justifying emergency of IVDs, unless it is terminated or revoked by the FDA (after which the test may no longer be used). Performed By: #### P OCGLUC #### [facility] [address] [place] [address] Dr. Darline Starr ER URINE PROFILEon 2 Bilirubin Ql (U) Negative Normal NEGATIVE [facility] Comment on above: Performed By: #### P OCGLUC #### [facility] [address] [place] [address] Dr. Darline Starr Clarity (U) CLEAR Normal CLEAR [facility] Comment on above: Performed By: #### P OCGLUC #### [facility] [address] [place] [address] Dr. Darline Starr Color (U) LT. YELLOW Normal YELLOW [facility] Comment on above: Performed By: #### P OCGLUC #### [facility] [address] [place] [address] Dr. Darline UGALDE A micrscopic examination will be performed if indicated. Normal [facility] Comment on above: Performed By: #### P OCGLUC #### [facility] [address] [place] [address] Dr. Darline Starr Glucose Ql (U) Negative Normal NEGATIVE [facility] Comment on above: Performed By: #### P OCGLUC #### [facility] [address] [place] [address] Dr. Darline Starr Hemoglobin Ql (U) TRACE-INTACT Abnormal NEGATIVE [facility] Comment on above: Performed By: #### P OCGLUC #### [facility] [address] [place] [address] Dr. Darline Starr Ketones Ql (U) Negative Normal NEGATIVE [facility] Comment on above: Performed By: #### P OCGLUC #### [facility] [address] [address] [address] Darline Starr LEUKOCYTES Negative Normal NEGATIVE [facility] Comment on above: Performed By: #### P OCGLUC #### [facility] [address] [address] [address] Darline Starr Nitrite Ql (U) Negative Normal NEGATIVE [facility] Comment on above: Performed By: #### P OCGLUC #### [facility] [address] [address] [address] Darline Starr pH (U) 6.0 [pH] Normal 5-9 [facility] Comment on above: Performed By: #### P OCGLUC #### [facility] [address] [address] [address] Darline Starr SPEC GRAVITY 1.015 Normal 1.005-<=1.025 [facility] Comment on above: Performed By: #### P OCGLUC #### [facility] [address] [address] [address] Darline Starr UA PROTEIN TRACE Normal NEGATIVE/ TRACE [facility] Comment on above: Performed By: #### P OCGLUC #### [facility] [address] [place] [address] Dr. Darline Starr UR MICRO IND INDICATED Normal [facility] Comment on above: Performed By: #### P OCGLUC #### [facility] [address] [place] [address] Dr. Darline Starr Urobilinogen Qn (U) 0.2 {Jess'U}/dL Normal 0.2 - 1. 0 [facility] Comment on above: Performed By: #### P OCGLUC #### [facility] [address] [address] [address] Darline Starr GLYCOHEMOGLOBIN A1Con 2021 ADA RECOMMENDATION SEE BELOW Normal [facility] Comment on above: Result Comment: ADA RECOMMENDED LIMIT 4.0 - 6.0 ADA THERAPEUTIC TARGET < 7.0 ACTION SUGGESTED > 7.0 Performed By: #### P OCGLUC #### [facility] [address] [address] [address] Darline Starr Glucose [Mass/Vol] 131 mg/dL Normal [facility] Comment on above: Performed By: #### P OCGLUC #### [facility] [address] [place] [address] Dr. Darline Starr HbA1c (Bld) [Mass fraction] 6.2 % Normal 4.5-6.2 [facility] Comment on above: Performed By: #### P OCGLUC #### [facility] [address] [place] [address] Dr. Darline Starr HEMOGLOBIN AND HEMATOCRITon 03-10-2022 Hematocrit (Bld) [Volume fraction] 34.7 % Critically low 42.0-54.0 [facility] Comment on above: Performed By: #### H GBHCT #### [facility] [address] [place] [address] Dr. Darline Starr Hematocrit (Bld) [Volume fraction] 34.0 % Critically low 42.0-54.0 [facility] Comment on above: Performed By: #### C K #### [facility] [address] [place] [address] Dr. Darline Starr Hematocrit (Bld) [Volume fraction] 35.3 % Critically low 42.0-54.0 [facility] Comment on above: Performed By: #### P THINT #### [facility] [address] [place] [address] Dr. Darline Starr Hemoglobin (Bld) [Mass/Vol] 11.7 g/dL Critically low 14.0-18.0 [facility] Comment on above: Performed By: #### H GBHCT #### [facility] [address] [place] [address] Dr. Darline Starr Hemoglobin (Bld) [Mass/Vol] 11.2 g/dL Critically low 14.0-18.0 [facility] Comment on above: Performed By: #### C K #### [facility] [address] [place] [address] Dr. Darline Starr Hemoglobin (Bld) [Mass/Vol] 11.8 g/dL Critically low 14.0-18.0 [facility] Comment on above: Performed By: #### P THINT #### [facility] [address] [address] [address] Darline Starr POINT OF CARE GLUCOSEon 02-18 Glucose [Mass/Vol] 264 mg/dL Critically high -106 [facility] Comment on above: Performed By: #### P OCGLUC #### [facility] [address] [address] [address] Darline Starr Glucose [Mass/Vol] 65 mg/dL Critically low 74-106 [facility] Comment on above: Performed By: #### P OCGLUC #### [facility] [address] [address] [address] Darline Starr Glucose [Mass/Vol] 67 mg/dL Critically low 74-106 [facility] Comment on above: Performed By: #### P OCGLUC #### [facility] [address] [address] [address] Darline Starr Glucose [Mass/Vol] 171 mg/dL Critically high -106 [facility] Comment on above: Performed By: #### M ALBCRL #### [facility] [address] [address] [address] Darline Starr Glucose [Mass/Vol] 245 mg/dL Critically high -106 [facility] Comment on above: Performed By: #### P OCGLUC #### [facility] [address] [address] [address] Darline Starr PROF CHEM 8 (BAS METB)on Anion gap [Moles/Vol] 10.2 mmol/L Normal [facility] Comment on above: Performed By: #### P THINT #### [facility] [address] [place] [address] Dr. Darline Starr Calcium [Mass/Vol] 8.5 mg/dL Normal 8.5-10.1 [facility] Comment on above: Performed By: #### P THINT #### [facility] [address] [place] [address] Dr. Darline Starr Chloride [Moles/Vol] 104 mmol/L Normal 98-107 [facility] Comment on above: Performed By: #### P THINT #### [facility] [address] [address] [address] Darline Starr CO2 [Moles/Vol] 27.7 mmol/L Normal 21.0-32.0 [facility] Comment on above: Performed By: #### P THINT #### [facility] [address] [address] [address] Darline Starr Creatinine [Mass/Vol] 1.53 mg/dL Critically high 0.70-1.30 [facility] Comment on above: Performed By: #### P THINT #### [facility] [address] [place] [address] Dr. Darline Starr EGFR-AF RWANDAN 53 mL/min/1.73m2 Critically low >=60 [facility] Comment on above: Performed By: #### P THINT #### [facility] [address] [place] [address] Dr. Darline Starr EGFR-NON AF RWANDAN 44 mL/min/1.73m2 Critically low >=60 [facility] Comment on above: Performed By: #### P THINT #### [facility] [address] [place] [address] Dr. Darline Starr Glucose [Mass/Vol] 117 mg/dL Critically high 74-106 [facility] Comment on above: Performed By: #### P THINT #### [facility] [address] [place] [address] Dr. Darline Starr Potassium [Moles/Vol] 3.9 mmol/L Normal 3.5-5.1 [facility] Comment on above: Performed By: #### P THINT #### [facility] [address] [place] [address] Dr. Darline Starr Sodium [Moles/Vol] 138 mmol/L Normal 136-145 [facility] Comment on above: Performed By: #### P THINT #### [facility] [address] [place] [address] Dr. Darline Starr Urea nitrogen [Mass/Vol] 21.0 mg/dL Critically high 7.0-18.0 [facility] Comment on above: Performed By: #### P THINT #### [facility] [address] [place] [address] Dr. Darline Starr Urea nitrogen/Creatinine [Mass ratio] 13.7 mg/mg Normal [facility] Comment on above: Performed By: #### P THINT #### [facility] [address] [place] [address] Dr. Darline Starr PROTIMEon 03-10-2022 INR Coag (PPP) [Relative time] 1.02 {INR} Normal [facility] Comment on above: Performed By: #### M ALBCRL #### [facility] [address] [place] [address] Dr. Darline Starr INR GUIDELINES SEE BELOW Normal [facility] Comment on above: Result Comment: JENISE RED INR: 2.0 - 3.0 CONDITIONS NOT LISTED BELOW 2.5 - 3.5 FOR PROSTHETIC HEART VALVE REPLACEMENT 2.5 - 3.5 RECURRENT THROMBOSIS Performed By: #### M ALBCRL #### [facility] [address] [place] [address] Dr. Darline Starr PT Coag (PPP) [Time] 11.0 s Normal 9.0-11.6 [facility] Comment on above: Performed By: #### M ALBCRL #### [facility] [address] [place] [address] Dr. Darline Starr PTTon 03-10-2022 aPTT Coag (Bld) [Time] 31.8 s Normal 22.3-36.2 [facility] Comment on above: Performed By: #### M ALBCRL #### [facility] [address] [place] [address] Dr. Darline Starr URINE MICROSCOPIC ONLYon BACTERIA SMALL Abnormal NONE SEEN [facility] Comment on above: Performed By: #### P OCGLUC #### [facility] [address] [place] [address] Dr. Darline Starr Bacteria identified Cx Nom (U) INDICATED Normal [facility] Comment on above: Performed By: #### P OCGLUC #### [facility] [address] [address] [address] Darline Starr CAST NONE SEEN Normal NONE SEEN [facility] Comment on above: Performed By: #### P OCGLUC #### [facility] [address] [address] [address] Darline Starr Crystals LM Nom (Urine sed) NONE SEEN Normal NONE SEEN [facility] Comment on above: Performed By: #### P OCGLUC #### [facility] [address] [address] [address] Darline Starr Epithelial cells LM Ql (Urine sed) RARE Normal NONE SEEN /RARE [facility] Comment on above: Performed By: #### P OCGLUC #### [facility] [address] [place] [address] Dr. Darline Starr MUCOUS NONE SEEN Normal NONE SEEN [facility] Comment on above: Performed By: #### P OCGLUC #### [facility] [address] [address] [address] Darline Starr RBC 2-5 Abnormal 0-2 [facility] Comment on above: Performed By: #### P OCGLUC #### [facility] [address] [place] [address] Dr. Darline Starr WBC 5-10 Abnormal NONE SEEN [facility] Comment on above: Performed By: #### P OCGLUC #### [facility] [address] [place] [address] Dr. Darline Starr ICD REMOTE CHECKon 2 AV Delay Adaptive Paced Minimum (ms) [address] [facility] AV Delay Adaptive Sensed Minimum (ms) [address] [facility] AV Delay Paced (ms) 90 ms [facility] AV Delay Sensed (ms) 90 ms [facility] Battery Voltage 3.[address] [facility] Johan LV Pacing Amplitude (volts) 2.[address] [facility] Johan LV Pacing Polarity BI [facility] Johan LV Pacing Pulse Width (ms) 0.[address] [facility] Johan RA Pacing Amplitude (volts) [address] [facility] Johan RA Pacing Polarity BI [facility] Johan RA Pacing Pulse Width (ms) 0.[address] [facility] Johan RA Sensing Amplitude (mvolts) 0.[address] [facility] Johan RA Sensing Polarity BI [facility] Johan RV Pacing Amplitude (volts) 1.[address] [facility] Johan RV Pacing Polarity BI [facility] Johan RV Pacing Pulse Width (ms) 0.[address] [facility] Johan RV Sensing Amplitude (mvolts) 0.[address] [facility] Johan RV Sensing Polarity BI [facility] Detection Configuration (Vent) 1 - Zone [facility] ICD FastVT DetectionStatus DISABLED [facility] ICD-AMS EPISODES 170 {beats}/min [facility] ICD-ATP Episodes (Vent) [address] [facility] ICD-Device Mfg Other [facility] ICD-Fast Ventricular Tachycardia [address] [facility] ICD-Fast Ventricular Tachycardia [address] [facility] ICD-LEADIMPEDANCEATR IAL [address] [facility] ICD-Percent Pacing (Atrial) 78 % [facility] ICD-Shocks Aborted (Vent) [address] [facility] [id number] 0 [facility] ICD-SHOCKSABORTED 0 [facility] ICD-SHOCKSDELIVEREDV ENTRICULAR [address] [facility] ICD-Ventricular Fibrillation [address] [facility] ICD-VVDELAY_MS [address] [facility] Implant Date 10/18/[address] [facility] Lead Impedance (LV) 790 ohm [facility] Lead Impedance (RV) 400 ohm [facility] Lead Impedance High Voltage [address] [facility] Lead1 Mfg STJ [facility] Lead2 Mfg STJ [facility] Lead3 Mfg STJ [facility] Location LV [facility] Location RA [facility] Location RV [facility] Lower Rate (bpm) 70 {beats}/min [facility] Max Sensor Rate (bpm) 110 {beats}/min [facility] [id number]_ DETECTIONS_STATUS ENABLED [facility] Model [id number] [place] HF [facility] Model 1458Q Quartet [facility] Model 2088TC Tendril STS [facility] Model 7122Q Durata SJ4 [facility] Pacing Mode DDDR [facility] Serial Number [id number] [facility] Serial Number [id number] [facility] Serial Number [id number] [facility] Serial Number [id number] [facility] Test Charge Energy 40 [facility] Therapy Status (Vent) Enabled [facility] Thresh LV Capture Amplitude (volts) [address] [facility] Thresh LV Capture Duration (ms) 0.[address] [facility] Thresh RA Capture Amplitude (volts) 0.[address] [facility] Thresh RA Capture Duration (ms) 0.[address] [facility] Thresh RA Sensing Amplitude (mvolts) [address] [facility] Thresh RV Capture Amplitude (VOLTS) 0.[address] [facility] Thresh RV Capture Duration (MS) 0.[address] [facility] Thresh RV Sensing Amplitude (MVOLTS) [address] [facility] Tracking Rate (bpm) 130 {beats}/min [facility] VF Zone Detection Interval [address] [facility] VF Zone Therapy Configuration 0 ATP(s) + 6 Shock(s) [facility] No Panel Informationon 02-12 BLANK _ [facility] Implant Date 03/23/[address] [facility] MICROALBUMIN/ CREATININE RAT IOon 02-09-2022 Albumin, Urine 3.0 ug/mL Normal Not Estab. [facility] Comment on above: Performed By: #### M ALBCRL #### [facility] [address] [address] [address] Darline Starr Albumin/ Creatinine Ratio 4 mg/g creat Normal 0-29 [facility] Comment on above: Result Comment: Norm al: 0 - 29 Moderately increased: 30 - 300 Severely increased: >300 Performed By: #### M ALBCRL #### [facility] [address] [address] [address] Darline Starr Creatinine, Urine 73.0 mg/dL Normal Not Estab. The [facility] Comment on above: Performed By: #### M ALBCRL #### [facility] [address] [address] [address] Darline Starr CBC AUTO DIFFon 02-08-2022 BASO # 0.1 103/ul Normal 0.0-0.1 [facility] Comment on above: Performed By: #### P THINT #### [facility] [address] [address] [address] Darline Starr Basophils/100 WBC (Bld) 0.8 % Normal 0.2-2.0 [facility] Comment on above: Performed By: #### P THINT #### [facility] [address] [place] [address] Dr. Darline Starr EO # 0.2 103/ul Normal 0.0-0.7 [facility] Comment on above: Performed By: #### P THINT #### [facility] [address] [place] [address] Dr. Darline Starr Eosinophils/100 WBC (Bld) 2.2 % Normal 0.9-7.0 [facility] Comment on above: Performed By: #### P THINT #### [facility] [address] [place] [address] Dr. Darline Starr Erythrocyte distribution width (RBC) [Ratio] 13.9 % Normal 11.0-15.0 [facility] Comment on above: Performed By: #### P THINT #### [facility] [address] [place] [address] Dr. Darline Starr Hematocrit (Bld) [Volume fraction] 42.4 % Normal 42.0-54.0 [facility] Comment on above: Performed By: #### P THINT #### [facility] [address] [place] [address] Dr. Darline Starr Hemoglobin (Bld) [Mass/Vol] 14.0 g/dL Normal 14.0-18.0 [facility] Comment on above: Performed By: #### P THINT #### [facility] [address] [place] [address] Dr. Darline Starr IG # 0.03 10e3/ul Normal 0.00-0.03 [facility] Comment on above: Performed By: #### P THINT #### [facility] [address] [place] [address] Dr. Darline Starr IG % 0.4 % Normal 0.0-0.5 [facility] Comment on above: Performed By: #### P THINT #### [facility] [address] [place] [address] Dr. Darline Starr LYMPH # 1.4 103/ul Normal 1.2-3.8 [facility] Comment on above: Performed By: #### P THINT #### [facility] [address] [place] [address] Dr. Darline Starr Lymphocytes/100 WBC (Bld) 18.3 % Critically low 20.5-60.0 [facility] Comment on above: Performed By: #### P THINT #### [facility] [address] [place] [address] Dr. Darline Starr MANUAL DIFF REQ NO Normal [facility] Comment on above: Performed By: #### P THINT #### [facility] [address] [place] [address] Dr. Darline Starr MCH (RBC) [Entitic mass] 32.0 pg Normal 25.9-34.0 [facility] Comment on above: Performed By: #### P THINT #### [facility] [address] [place] [address] Dr. Darline Starr MCHC (RBC) [Mass/Vol] 33.0 g/dL Normal 29.9-35.2 [facility] Comment on above: Performed By: #### P THINT #### [facility] [address] [place] [address] Dr. Darline Starr MCV (RBC) [Entitic vol] 97.0 fL Critically high 80.0-94.0 [facility] Comment on above: Performed By: #### P THINT #### [facility] [address] [place] [address] Dr. Darline Starr MONO # 0.6 103/ul Normal 0.3-0.8 [facility] Comment on above: Performed By: #### P THINT #### [facility] [address] [place] [address] Dr. Darline Starr Monocytes/100 WBC (Bld) 7.4 % Normal 1.7-12.0 [facility] Comment on above: Performed By: #### P THINT #### [facility] [address] [place] [address] Dr. Darline Starr NEUT # 5.6 103/ul Normal 1.4-6.5 [facility] Comment on above: Performed By: #### P THINT #### [facility] [address] [address] [address] Darline Starr Neutrophils/100 WBC (Bld) 70.9 % Normal 43.0-75.0 [facility] Comment on above: Performed By: #### P THINT #### [facility] [address] [address] [address] Darline Starr Platelet mean volume (Bld) [Entitic vol] 9.3 fL Critically low 9.5-13.5 [facility] Comment on above: Performed By: #### P THINT #### [facility] [address] [address] [address] Darline Starr PLT 188 103/ul Normal 150-450 [facility] Comment on above: Performed By: #### P THINT #### [facility] [address] [place] [address] Dr. Darline Starr RBC 4.37 106/ul Critically low 4.70-6.10 [facility] Comment on above: Performed By: #### P THINT #### [facility] [address] [address] [address] Darline Starr WBC 7.9 103/ul Normal 4.0-11.0 [facility] Comment on above: Performed By: #### P THINT #### [facility] [address] [place] [address] Dr. Darline Starr RENAL FUNCTION PANELon 02-08 Albumin [Mass/Vol] 3.4 g/dL Normal 3.4-5.0 [facility] Comment on above: Performed By: #### P OCGLUC #### [facility] [address] [place] [address] Dr. Darline Starr Calcium [Mass/Vol] 8.7 mg/dL Normal 8.5-10.1 [facility] Comment on above: Performed By: #### P OCGLUC #### [facility] [address] [place] [address] Dr. Darline Starr Chloride [Moles/Vol] 104 mmol/L Normal 98-107 [facility] Comment on above: Performed By: #### P OCGLUC #### [facility] [address] [address] [address] Darline Starr CO2 [Moles/Vol] 27.3 mmol/L Normal 21.0-32.0 [facility] Comment on above: Performed By: #### P OCGLUC #### [facility] [address] [address] [address] Darline Starr Creatinine [Mass/Vol] 1.63 mg/dL Critically high 0.70-1.30 [facility] Comment on above: Performed By: #### P OCGLUC #### [facility] [address] [address] [address] Darline Starr EGFR-AF RWANDAN 50 mL/min/1.73m2 Critically low >=60 [facility] Comment on above: Performed By: #### P OCGLUC #### [facility] [address] [address] [address] Darline Strar EGFR-NON AF RWANDAN 41 mL/min/1.73m2 Critically low >=60 [facility] Comment on above: Performed By: #### P OCGLUC #### [facility] [address] [address] [address] Darline Starr Glucose [Mass/Vol] 121 mg/dL Critically high 74-106 [facility] Comment on above: Performed By: #### P OCGLUC #### [facility] [address] [address] [address] Darline Starr Phosphate [Mass/Vol] 3.4 mg/dL Normal 2.6-4.7 [facility] Comment on above: Performed By: #### P OCGLUC #### [facility] [address] [address] [address] Darline Starr Potassium [Moles/Vol] 4.2 mmol/L Normal 3.5-5.1 [facility] Comment on above: Performed By: #### P OCGLUC #### [facility] [address] [address] [address] Darline Starr Sodium [Moles/Vol] 139 mmol/L Normal 136-145 [facility] Comment on above: Performed By: #### P OCGLUC #### [facility] [address] [address] [address] Darline Starr Urea nitrogen [Mass/Vol] 21.0 mg/dL Critically high 7.0-18.0 [facility] Comment on above: Performed By: #### P OCGLUC #### [facility] [address] [address] [address] Darline Starr ICD REMOTE CHECKon 2 AV Delay Adaptive Paced Minimum (ms) [address] [facility] AV Delay Adaptive Sensed Minimum (ms) [address] [facility] AV Delay Paced (ms) 90 ms [facility] AV Delay Sensed (ms) 90 ms [facility] Battery Voltage 3.[address] [facility] Johan LV Pacing Amplitude (volts) 2.[address] [facility] Johan LV Pacing Polarity BI [facility] Johan LV Pacing Pulse Width (ms) 0.[address] [facility] Johan RA Pacing Amplitude (volts) [address] [facility] Johan RA Pacing Polarity BI [facility] Johan RA Pacing Pulse Width (ms) 0.[address] [facility] Johan RA Sensing Amplitude (mvolts) 0.[address] [facility] Johan RA Sensing Polarity BI [facility] Johan RV Pacing Amplitude (volts) 1.[address] [facility] Johan RV Pacing Polarity BI [facility] Johan RV Pacing Pulse Width (ms) 0.[address] [facility] Johan RV Sensing Amplitude (mvolts) 0.[address] [facility] Johan RV Sensing Polarity BI [facility] Detection Configuration (Vent) 1 - Zone [facility] ICD FastVT DetectionStatus DISABLED [facility] ICD-AMS EPISODES 170 {beats}/min [facility] ICD-ATP Episodes (Vent) [address] [facility] ICD-Device Mfg Other [facility] ICD-Fast Ventricular Tachycardia [address] [facility] ICD-Fast Ventricular Tachycardia [address] [facility] ICD-LEADIMPEDANCEATR IAL [address] [facility] ICD-Percent Pacing (Atrial) 78 % [facility] ICD-Shocks Aborted (Vent) [address] [facility] [id number] 0 [facility] ICD-SHOCKSABORTED 0 [facility] ICD-SHOCKSDELIVEREDV ENTRICULAR [address] [facility] ICD-Ventricular Fibrillation [address] [facility] ICD-VVDELAY_MS [address] [facility] Implant Date 10/18/[address] [facility] Lead Impedance (LV) 800 ohm [facility] Lead Impedance (RV) 440 ohm [facility] Lead Impedance High Voltage [address] [facility] Lead1 Mfg STJ [facility] Lead2 Mfg STJ [facility] Lead3 Mfg STJ [facility] Location LV [facility] Location RA [facility] Location RV [facility] Lower Rate (bpm) 70 {beats}/min [facility] Max Sensor Rate (bpm) 110 {beats}/min [facility] MDT_PROG_TACHY_ZONE_ DETECTIONS_STATUS ENABLED [facility] Model [id number] [place] HF [facility] Model 1458Q Quartet [facility] Model 2088TC Tendril STS [facility] Model 7122Q Durata SJ4 [facility] Pacing Mode DDDR [facility] Serial Number [id number] [facility] Serial Number [id number] [facility] Serial Number [id number] [facility] Serial Number [id number] [facility] Test Charge Energy 40 J [facility] Therapy Status (Vent) Enabled [facility] Thresh LV Capture Amplitude (volts) [address] [facility] Thresh LV Capture Duration (ms) 0.[address] [facility] Thresh RA Capture Amplitude (volts) 0.[address] [facility] Thresh RA Capture Duration (ms) 0.[address] [facility] Thresh RA Sensing Amplitude (mvolts) [address] [facility] Thresh RV Capture Amplitude (VOLTS) 0.[address] [facility] Thresh RV Capture Duration (MS) 0.[address] [facility] Thresh RV Sensing Amplitude (MVOLTS) [address] [facility] Tracking Rate (bpm) 130 {beats}/min [facility] VF Zone Detection Interval [address] [facility] VF Zone Therapy Configuration 0 ATP(s) + 6 Shock(s) [facility] No Panel Informationon 12-29 BLANK _ [facility] Implant Date 03/23/[address] [facility] ICD CLINIC CHECKon 2 AV Delay Adaptive Paced Minimum (ms) [address] [facility] AV Delay Adaptive Rate Maximum (bpm) 130 {beats}/min [facility] AV Delay Adaptive Rate Minimum (bpm) 90 {beats}/min [facility] AV Delay Adaptive Sensed Minimum (ms) [address] [facility] AV Delay Adaptive Status Medium [facility] AV Delay Paced (ms) 90 ms [facility] AV Delay Sensed (ms) 90 ms [facility] Johan LV Pacing Amplitude (volts) 2.[address] [facility] Johan LV Pacing Polarity BI [facility] Johan LV Pacing Pulse Width (ms) 0.[address] [facility] Johan RA Pacing Amplitude (volts) [address] [facility] Johan RA Pacing Polarity BI [facility] Johan RA Pacing Pulse Width (ms) 0.[address] [facility] Johan RA Sensing Amplitude (mvolts) 0.[address] [facility] Johan RA Sensing Blanking Period (ms) [address] [facility] Johan RA Sensing Polarity BI [facility] Johan RA Sensing Refractory Period (ms) [address] [facility] Johan RV Pacing Amplitude (volts) 1.[address] [facility] Johan RV Pacing Polarity BI [facility] Johan RV Pacing Pulse Width (ms) 0.[address] [facility] Johan RV Sensing Amplitude (mvolts) 0.[address] [facility] Johan RV Sensing Blanking Period (ms) [address] [facility] Johan RV Sensing Polarity BI [facility] Detection Configuration (Vent) 1 - Zone [facility] ICD FastVT DetectionStatus DISABLED [facility] ICD-AMS EPISODES 170 {beats}/min [facility] ICD-Johan RV Sensing Refractory Period (ms) [address] [facility] ICD-Device Mfg Other [facility] ICD-FALLBACKRATE_BPM 70 {beats}/min [facility] ICD-Hysteresis Rate Off [facility] ICD-LEADIMPEDANCEATR IAL 337.[address] [facility] ICD-Percent Pacing (Atrial) 78 % [facility] ICD-Percent Pacing (Vent) 98 % [facility] ICD-PMT Intervention Atrial Pace [facility] ICD-PVC Intervention Off [facility] ICD-Rate Modulation Acceleration Reaction Fast [facility] ICD-Rate Modulation Deceleration Medium [facility] ICD-Rate Modulation [place] Auto (+2) [facility] ICD-Rate Modulation Threshold Auto (-0.5) [facility] ICD-Rhythm Normal Sinus Rhythm [facility] ICD-Shocks Aborted (Vent) [address] [facility] [facility] [id number] 0 [facility] ICD-SHOCKSABORTED 0 [facility] ICD-SHOCKSDELIVEREDV ENTRICULAR [address] [facility] Implant Date 10/18/[address] [facility] Lead Impedance (LV) 800 ohm [facility] Lead Impedance (RV) 412.5 ohm [facility] Lead Impedance High Voltage 57.[address] [facility] Lead1 Mfg STJ [facility] Lead2 Mfg STJ [facility] Lead3 Mfg STJ [facility] Location LV [facility] Location RA [facility] Location RV [facility] Lower Rate (bpm) 70 {beats}/min [facility] Max Sensor Rate (bpm) 110 {beats}/min [facility] MDT_PROG_TACHY_ZONE_ DETECTIONS_STATUS ENABLED [facility] Model [id number] [place] HF [facility] Model 1458Q Quartet [facility] Model 2088TC Tendril STS [facility] Model 7122Q Durata SJ4 [facility] Pacemaker Dependent? NO [facility] Pacing Mode DDDR [facility] Serial Number [id number] [facility] Serial Number [id number] [facility] Serial Number [id number] [facility] Serial Number [id number] [facility] Therapy Status (Vent) Enabled [facility] Thresh RA Capture Amplitude (volts) 0.[address] [facility] Thresh RA Capture Duration (ms) 0.[address] [facility] Thresh RA Sensing Amplitude (mvolts) [address] [facility] Thresh RV Capture Amplitude (VOLTS) 0.[address] [facility] Thresh RV Capture Duration (MS) 0.[address] [facility] Thresh RV Sensing Amplitude (MVOLTS) [address] [facility] Tracking Rate (bpm) 130 {beats}/min [facility] VF Zone Detection Interval [address] [facility] VF Zone Therapy Configuration 1 ATP(s) + 6 Shock(s) [facility] No Panel Informationon 12-21 BLANK _ [facility] Implant Date 03/23/[address] [facility] ICD REMOTE CHECKon 2 AV Delay Adaptive Paced Minimum (ms) [address] [facility] AV Delay Adaptive Sensed Minimum (ms) [address] [facility] AV Delay Paced (ms) 90 ms [facility] AV Delay Sensed (ms) 90 ms [facility] Battery Voltage 3.[address] [facility] Johan LV Pacing Amplitude (volts) 2.[address] [facility] Johan LV Pacing Polarity BI [facility] Johan LV Pacing Pulse Width (ms) 0.[address] [facility] Johan RA Pacing Amplitude (volts) [address] [facility] Johan RA Pacing Polarity BI [facility] Johan RA Pacing Pulse Width (ms) 0.[address] [facility] Johan RA Sensing Amplitude (mvolts) 0.[address] [facility] Johan RA Sensing Polarity BI [facility] Johan RV Pacing Amplitude (volts) 1.[address] [facility] Johan RV Pacing Polarity BI [facility] Johan RV Pacing Pulse Width (ms) 0.[address] [facility] Johan RV Sensing Amplitude (mvolts) 0.[address] [facility] Johan RV Sensing Polarity BI [facility] Detection Configuration (Vent) 1 - Zone [facility] ICD FastVT DetectionStatus DISABLED [facility] ICD-AMS EPISODES 170 {beats}/min [facility] ICD-ATP Episodes (Vent) [address] [facility] ICD-Device Mfg Other [facility] ICD-LEADIMPEDANCEATR IAL [address] [facility] ICD-Percent Pacing (Atrial) 77 % [facility] ICD-Shocks Aborted (Vent) [address] [facility] [id number] 0 [facility] ICD-SHOCKSABORTED 0 [facility] ICD-SHOCKSDELIVEREDV ENTRICULAR [address] [facility] ICD-VVDELAY_MS [address] [facility] Implant Date 10/18/[address] [facility] Lead Impedance (LV) 800 ohm [facility] Lead Impedance (RV) 460 ohm [facility] Lead Impedance High Voltage [address] [facility] Lead1 Mfg STJ [facility] Lead2 Mfg STJ [facility] Lead3 Mfg STJ [facility] Location LV [facility] Location RA [facility] Location RV [facility] Lower Rate (bpm) 70 {beats}/min [facility] Max Sensor Rate (bpm) 110 {beats}/min [facility] MDT_PROG_TACHY_ZONE_ DETECTIONS_STATUS ENABLED [facility] Model [id number] [place] HF [facility] Model 1458Q Quartet [facility] Model 2088TC Tendril STS [facility] Model 7122Q Durata SJ4 [facility] Pacing Mode DDDR [facility] Serial Number [id number] [facility] Serial Number [id number] [facility] Serial Number [id number] [facility] Serial Number [id number] [facility] Test Charge Energy 40 J [facility] Therapy Status (Vent) Enabled [facility] Thresh LV Capture Amplitude (volts) [address] [facility] Thresh LV Capture Duration (ms) 0.[address] [facility] Thresh RA Capture Amplitude (volts) 0.[address] [facility] Thresh RA Capture Duration (ms) 0.[address] [facility] Thresh RA Sensing Amplitude (mvolts) [address] [facility] Thresh RV Capture Amplitude (VOLTS) 0.[address] [facility] Thresh RV Capture Duration (MS) 0.[address] [facility] Thresh RV Sensing Amplitude (MVOLTS) 1.[address] [facility] Tracking Rate (bpm) 130 {beats}/min [facility] VF Zone Detection Interval [address] [facility] VF Zone Therapy Configuration 0 ATP(s) + 6 Shock(s) [facility] No Panel Informationon 12-18 BLANK _ [facility] Implant Date 03/23/[address] [facility] No Panel Informationon 12-13 AV Delay Adaptive Paced Minimum (ms) [address] [facility] AV Delay Adaptive Sensed Minimum (ms) [address] [facility] AV Delay Paced (ms) 90 ms [facility] AV Delay Sensed (ms) 90 ms [facility] Battery Voltage 3.[address] [facility] BLANK _ [facility] Johan LV Pacing Amplitude (volts) 2.[address] [facility] Johan LV Pacing Polarity BI [facility] Johan LV Pacing Pulse Width (ms) 0.[address] [facility] Johan RA Pacing Amplitude (volts) [address] [facility] Johan RA Pacing Polarity BI [facility] Johan RA Pacing Pulse Width (ms) 0.[address] [facility] Johan RA Sensing Amplitude (mvolts) 0.[address] [facility] Johan RA Sensing Polarity BI [facility] Johan RV Pacing Amplitude (volts) 1.[address] [facility] Johan RV Pacing Polarity BI [facility] Johna RV Pacing Pulse Width (ms) 0.[address] [facility] Johan RV Sensing Amplitude (mvolts) 0.[address] [facility] Johan RV Sensing Polarity BI [facility] Detection Configuration (Vent) 1 - Zone [facility] ICD FastVT DetectionStatus DISABLED [facility] ICD-AMS EPISODES 170 {beats}/min [facility] ICD-ATP Episodes (Vent) [address] [facility] ICD-Device Mfg Other [facility] ICD-LEADIMPEDANCEATR IAL [address] [facility] ICD-Percent Pacing (Atrial) 76 % [facility] ICD-Shocks Aborted (Vent) [address] [facility] [id number] 0 [facility] ICD-SHOCKSABORTED 0 [facility] ICD-SHOCKSDELIVEREDV ENTRICULAR [address] [facility] ICD-VVDELAY_MS [address] [facility] Implant Date 10/18/[address] [facility] Implant Date 03/23/[address] [facility] Lead Impedance (LV) 840 ohm [facility] Lead Impedance (RV) 460 ohm [facility] Lead Impedance High Voltage [address] [facility] Lead1 Mfg STJ [facility] Lead2 Mfg STJ [facility] Lead3 Mfg STJ [facility] Location LV [facility] Location RA [facility] Location RV [facility] Lower Rate (bpm) 70 {beats}/min [facility] Max Sensor Rate (bpm) 110 {beats}/min [facility] MDT_PROG_TACHY_ZONE_ DETECTIONS_STATUS ENABLED [facility] Model [id number] [place] HF [facility] Model 1458Q Quartet [facility] Model 2088TC Tendril STS [facility] Model 7122Q Durata SJ4 [facility] Pacing Mode DDDR [facility] Serial Number [id number] [facility] Serial Number [id number] [facility] Serial Number [id number] [facility] Serial Number [id number] [facility] Test Charge Energy 40 J [facility] Therapy Status (Vent) Enabled [facility] Thresh LV Capture Amplitude (volts) [address] [facility] Thresh LV Capture Duration (ms) 0.[address] [facility] Thresh RA Capture Amplitude (volts) 0.[address] [facility] Thresh RA Capture Duration (ms) 0.[address] [facility] Thresh RA Sensing Amplitude (mvolts) 2.[address] [facility] Thresh RV Capture Amplitude (VOLTS) 0.[address] [facility] Thresh RV Capture Duration (MS) 0.[address] [facility] Thresh RV Sensing Amplitude (MVOLTS) [address] [facility] Tracking Rate (bpm) 130 {beats}/min [facility] VF Zone Detection Interval [address] [facility] VF Zone Therapy Configuration 0 ATP(s) + 6 Shock(s) [facility] ICD CLINIC CHECKon 2 AV Delay Adaptive Paced Minimum (ms) [address] [facility] AV Delay Adaptive Rate Maximum (bpm) 130 {beats}/min [facility] AV Delay Adaptive Rate Minimum (bpm) 90 {beats}/min [facility] AV Delay Adaptive Sensed Minimum (ms) [address] [facility] AV Delay Adaptive Status Medium [facility] AV Delay Paced (ms) 90 ms [facility] AV Delay Sensed (ms) 90 ms [facility] Johan LV Pacing Amplitude (volts) 2.[address] [facility] Johan LV Pacing Polarity BI [facility] Johan LV Pacing Pulse Width (ms) 0.[address] [facility] Johan RA Pacing Amplitude (volts) [address] [facility] Johan RA Pacing Polarity BI [facility] Johan RA Pacing Pulse Width (ms) 0.[address] [facility] Johan RA Sensing Amplitude (mvolts) 0.[address] [facility] Johan RA Sensing Blanking Period (ms) [address] [facility] Johan RA Sensing Polarity BI [facility] Johan RA Sensing Refractory Period (ms) [address] [facility] Johan RV Pacing Amplitude (volts) 1.[address] [facility] Johan RV Pacing Polarity BI [facility] Johan RV Pacing Pulse Width (ms) 0.[address] [facility] Johan RV Sensing Amplitude (mvolts) 0.[address] [facility] Johan RV Sensing Blanking Period (ms) [address] [facility] Johan RV Sensing Polarity BI [facility] Detection Configuration (Vent) 1 - Zone [facility] ICD FastVT DetectionStatus DISABLED [facility] ICD-AMS EPISODES 170 {beats}/min [facility] ICD-Johan RV Sensing Refractory Period (ms) [address] [facility] ICD-Device Mfg Other [facility] ICD-FALLBACKRATE_BPM 70 {beats}/min [facility] ICD-Hysteresis Rate Off [facility] ICD-LEADIMPEDANCEATR IAL 337.[address] [facility] ICD-Percent Pacing (Atrial) 83 % [facility] ICD-Percent Pacing (Vent) 98 % [facility] ICD-PMT Intervention Atrial Pace [facility] ICD-PVC Intervention Off [facility] ICD-Rate Modulation Acceleration Reaction Fast [facility] ICD-Rate Modulation Deceleration Medium [facility] ICD-Rate Modulation [place] Auto (+2) [facility] ICD-Rate Modulation Threshold Auto (-0.5) [facility] ICD-Rhythm SB/SR [facility] ICD-Shocks Aborted (Vent) [address] [facility] [id number] 0 [facility] ICD-SHOCKSABORTED 0 [facility] ICD-SHOCKSDELIVEREDV ENTRICULAR [address] [facility] Implant Date 10/18/[address] [facility] Lead Impedance (LV) 800 ohm [facility] Lead Impedance (RV) 412.5 ohm [facility] Lead Impedance High Voltage 57.[address] [facility] Lead1 Mfg STJ [facility] Lead2 Mfg STJ [facility] Lead3 Mfg STJ [facility] Location LV [facility] Location RA [facility] Location RV [facility] Lower Rate (bpm) 70 {beats}/min [facility] Max Sensor Rate (bpm) 110 {beats}/min [facility] MDT_PROG_TACHY_ZONE_ DETECTIONS_STATUS ENABLED [facility] Model [id number] [place] HF [facility] Model 1458Q Quartet [facility] Model 2088TC Tendril STS [facility] Model 7122Q Durata SJ4 [facility] Pacemaker Dependent? NO [facility] Pacing Mode DDDR [facility] Serial Number [id number] [facility] Serial Number [id number] [facility] Serial Number [id number] [facility] Serial Number [id number] [facility] Therapy Status (Vent) Enabled [facility] Thresh LV Capture Amplitude (volts) [address] [facility] Thresh LV Capture Duration (ms) 0.[address] [facility] Thresh RA Capture Amplitude (volts) 0.[address] [facility] Thresh RA Capture Duration (ms) 0.[address] [facility] Thresh RA Sensing Amplitude (mvolts) 2.[address] [facility] Thresh RV Capture Amplitude (VOLTS) 0.[address] [facility] Thresh RV Capture Duration (MS) 0.[address] [facility] Thresh RV Sensing Amplitude (MVOLTS) [address] [facility] Tracking Rate (bpm) 130 {beats}/min [facility] VF Zone Detection Interval [address] [facility] VF Zone Therapy Configuration 1 ATP(s) + 6 Shock(s) [facility] No Panel Informationon 11-30 BLANK _ [facility] Implant Date 03/23/[address] [facility] ICD REMOTE CHECKon AV Delay Adaptive Paced Minimum (ms) [address] [facility] AV Delay Adaptive Sensed Minimum (ms) [address] [facility] AV Delay Paced (ms) 90 ms [facility] AV Delay Sensed (ms) 90 ms [facility] Battery Voltage 3.[address] [facility] Johan LV Pacing Amplitude (volts) 2.[address] [facility] Johan LV Pacing Polarity BI [facility] Johan LV Pacing Pulse Width (ms) 0.[address] [facility] Johan RA Pacing Amplitude (volts) [address] [facility] Johan RA Pacing Polarity BI [facility] Johan RA Pacing Pulse Width (ms) 0.[address] [facility] Johan RA Sensing Amplitude (mvolts) 0.[address] [facility] Johan RA Sensing Polarity BI [facility] Johan RV Pacing Amplitude (volts) 1.[address] [facility] Johan RV Pacing Polarity BI [facility] Johan RV Pacing Pulse Width (ms) 0.5 ms [facility] RV Sensing Amplitude (mvolts) 0.[address] [facility] Johan RV Sensing Polarity BI [facility] Detection Configuration (Vent) 1 - Zone [facility] ICD FastVT DetectionStatus DISABLED [facility] ICD-AMS EPISODES 170 {beats}/min [facility] ICD-ATP Episodes (Vent) [address] [facility] ICD-Device Mfg Other [facility] ICD-LEADIMPEDANCEATR IAL [address] [facility] ICD-Percent Pacing (Atrial) 89 % [facility] ICD-Shocks Aborted (Vent) [address] [facility] [id number] 0 [facility] ICD-SHOCKSABORTED 0 [facility] ICD-SHOCKSDELIVEREDV ENTRICULAR [address] [facility] ICD-VVDELAY_MS [address] [facility] Implant Date 10/18/[address] [facility] Lead Impedance (LV) 790 ohm [facility] Lead Impedance (RV) 410 ohm [facility] Lead Impedance High Voltage [address] [facility] Lead1 Mfg STJ [facility] Lead2 Mfg STJ [facility] Lead3 Mfg STJ [facility] Location LV [facility] Location RA [facility] Location RV [facility] Lower Rate (bpm) 70 {beats}/min [facility] Max Sensor Rate (bpm) 110 {beats}/min [facility] MDT_PROG_TACHY_ZONE_ DETECTIONS_STATUS ENABLED [facility] Model [id number] [place] HF [facility] Model 1458Q Quartet [facility] Model 2088TC Tendril STS [facility] Model 7122Q Durata SJ4 [facility] Pacing Mode DDDR [facility] Serial Number [id number] [facility] Serial Number [id number] [facility] Serial Number [id number] [facility] Serial Number [id number] [facility] Test Charge Energy 40 J [facility] Therapy Status (Vent) Enabled [facility] Thresh LV Capture Amplitude (volts) 0.[address] [facility] Thresh LV Capture Duration (ms) 0.[address] [facility] Thresh RA Capture Amplitude (volts) 0.[address] [facility] Thresh RA Capture Duration (ms) 0.[address] [facility] Thresh RA Sensing Amplitude (mvolts) 1.[address] [facility] Thresh RV Capture Amplitude (VOLTS) 0.[address] [facility] Thresh RV Capture Duration (MS) 0.[address] [facility] Thresh RV Sensing Amplitude (MVOLTS) 11.[address] [facility] Tracking Rate (bpm) 130 {beats}/min [facility] VF Zone Detection Interval [address] [facility] VF Zone Therapy Configuration 0 ATP(s) + 6 Shock(s) [facility] No Panel Informationon 10-31 BLANK _ [facility] Implant Date 03/23/[address] [facility] ICD REMOTE CHECKon 2 AV Delay Adaptive Paced Minimum (ms) [address] [facility] AV Delay Adaptive Rate Maximum (bpm) 130 {beats}/min [facility] AV Delay Adaptive Rate Minimum (bpm) 90 {beats}/min [facility] AV Delay Adaptive Sensed Minimum (ms) [address] [facility] AV Delay Adaptive Status Medium [facility] AV Delay Paced (ms) 90 ms [facility] AV Delay Sensed (ms) 90 ms [facility] Johan LV Pacing Amplitude (volts) 2.[address] [facility] Johan LV Pacing Polarity BI [facility] Johan LV Pacing Pulse Width (ms) 0.[address] [facility] Johan RA Pacing Amplitude (volts) [address] [facility] Johan RA Pacing Polarity BI [facility] Johan RA Pacing Pulse Width (ms) 0.[address] [facility] Johan RA Sensing Amplitude (mvolts) 0.[address] [facility] Johan RA Sensing Blanking Period (ms) [address] [facility] Johan RA Sensing Polarity BI [facility] Johan RA Sensing Refractory Period (ms) [address] [facility] Johan RV Pacing Amplitude (volts) 1.[address] [facility] Johan RV Pacing Polarity BI [facility] Johan RV Pacing Pulse Width (ms) 0.[address] [facility] Johan RV Sensing Amplitude (mvolts) 0.[address] [facility] Johan RV Sensing Blanking Period (ms) [address] [facility] Johan RV Sensing Polarity BI [facility] Detection Configuration (Vent) 1 - Zone [facility] ICD FastVT DetectionStatus DISABLED [facility] ICD-AMS EPISODES 170 {beats}/min [facility] ICD-Johan RV Sensing Refractory Period (ms) [address] [facility] ICD-Device Mfg Other [facility] ICD-FALLBACKRATE_BPM 70 {beats}/min [facility] ICD-Hysteresis Rate Off [facility] ICD-PMT Intervention Atrial Pace [facility] ICD-PVC Intervention Off [facility] ICD-Rate Modulation Acceleration Reaction Fast [facility] ICD-Rate Modulation Deceleration Medium [facility] ICD-Rate Modulation [place] Auto (+2) [facility] ICD-Rate Modulation Threshold Auto (-0.5) [facility] Implant Date 10/18/[address] [facility] Lead1 Mfg STJ [facility] Lead2 Mfg STJ [facility] Lead3 Mfg STJ [facility] Location LV [facility] Location RA [facility] Location RV [facility] Lower Rate (bpm) 70 {beats}/min [facility] Max Sensor Rate (bpm) 110 {beats}/min [facility] MDT_PROG_TACHY_ZONE_ DETECTIONS_STATUS ENABLED [facility] Model [id number] [place] HF [facility] Model 1458Q Quartet [facility] Model 2088TC Tendril STS [facility] Model 7122Q Durata SJ4 [facility] Pacing Mode DDDR [facility] Serial Number [id number] [facility] Serial Number [id number] [facility] Serial Number [id number] [facility] [facility] Serial Number [id number] [facility] Therapy Status (Vent) Enabled [facility] Tracking Rate (bpm) 130 {beats}/min [facility] VF Zone Detection Interval [address] [facility] VF Zone Therapy Configuration 1 ATP(s) + 6 Shock(s) [facility] No Panel Informationon 10-23 BLANK _ [facility] Implant Date 03/23/[address] [facility] ICD CLINIC CHECKon 2 AV Delay Adaptive Paced Minimum (ms) [address] [facility] AV Delay Adaptive Rate Maximum (bpm) 130 {beats}/min [facility] AV Delay Adaptive Rate Minimum (bpm) 90 {beats}/min [facility] AV Delay Adaptive Sensed Minimum (ms) [address] [facility] AV Delay Adaptive Status Medium [facility] AV Delay Paced (ms) 90 ms [facility] AV Delay Sensed (ms) 90 ms [facility] Johan LV Pacing Amplitude (volts) 2.[address] [facility] Johan LV Pacing Polarity BI [facility] Johan LV Pacing Pulse Width (ms) 0.[address] [facility] Johan RA Pacing Amplitude (volts) [address] [facility] Johan RA Pacing Polarity BI [facility] Johan RA Pacing Pulse Width (ms) 0.[address] [facility] Johan RA Sensing Amplitude (mvolts) 0.[address] [facility] Johan RA Sensing Blanking Period (ms) [address] [facility] Johan RA Sensing Polarity BI [facility] Johan RA Sensing Refractory Period (ms) [address] [facility] Johan RV Pacing Amplitude (volts) 1.[address] [facility] Johan RV Pacing Polarity BI [facility] Johan RV Pacing Pulse Width (ms) 0.[address] [facility] Johan RV Sensing Amplitude (mvolts) 0.[address] [facility] Johan RV Sensing Blanking Period (ms) [address] [facility] Johan RV Sensing Polarity BI [facility] Detection Configuration (Vent) 1 - Zone [facility] ICD FastVT DetectionStatus DISABLED [facility] ICD-AMS EPISODES 170 {beats}/min [facility] ICD-Johan RV Sensing Refractory Period (ms) [address] [facility] ICD-Device Mfg Other [facility] ICD-FALLBACKRATE_BPM 70 {beats}/min [facility] ICD-Hysteresis Rate Off [facility] ICD-LEADIMPEDANCEATR IAL 337.[address] [facility] ICD-Percent Pacing (Atrial) 77 % [facility] ICD-Percent Pacing (Vent) 94 % [facility] ICD-PMT Intervention Atrial Pace [facility] ICD-PVC Intervention Off [facility] ICD-Rate Modulation Acceleration Reaction Fast [facility] ICD-Rate Modulation Deceleration Medium [facility] ICD-Rate Modulation [place] Auto (+2) [facility] ICD-Rate Modulation Threshold Auto (-0.5) [facility] ICD-Rhythm SR with a 1st degree AV block. [facility] ICD-Shocks Aborted (Vent) [address] [facility] [id number] 0 [facility] ICD-SHOCKSABORTED 0 [facility] ICD-SHOCKSDELIVEREDV ENTRICULAR [address] [facility] Implant Date 10/18/[address] [facility] Lead Impedance (LV) 787.5 ohm [facility] Lead Impedance (RV) 400 ohm [facility] Lead Impedance High Voltage 58.[address] [facility] Lead1 Mfg STJ [facility] Lead2 Mfg STJ [facility] Lead3 Mfg STJ [facility] Location LV [facility] Location RA [facility] Location RV [facility] Lower Rate (bpm) 70 {beats}/min [facility] Max Sensor Rate (bpm) 110 {beats}/min [facility] MDT_PROG_TACHY_ZONE_ DETECTIONS_STATUS ENABLED [facility] Model [id number] [place] HF [facility] Model 1458Q Quartet [facility] Model 2088TC Tendril STS [facility] Model 7122Q Durata SJ4 [facility] Pacemaker Dependent? NO [facility] Pacing Mode DDDR [facility] Serial Number [id number] [facility] Serial Number [id number] [facility] Serial Number [id number] [facility] Serial Number [id number] [facility] Therapy Status (Vent) Enabled [facility] Thresh LV Capture Amplitude (volts) 0.[address] [facility] Thresh LV Capture Duration (ms) 0.[address] [facility] Thresh RA Capture Amplitude (volts) 0.[address] [facility] Thresh RA Capture Duration (ms) 0.[address] [facility] Thresh RA Sensing Amplitude (mvolts) [address] [facility] Thresh RV Capture Amplitude (VOLTS) 0.[address] [facility] Thresh RV Capture Duration (MS) 0.[address] [facility] Thresh RV Sensing Amplitude (MVOLTS) 11.[address] [facility] Tracking Rate (bpm) 130 {beats}/min [facility] VF Zone Detection Interval [address] [facility] VF Zone Therapy Configuration 1 ATP(s) + 6 Shock(s) [facility] No Panel Informationon 10-18 BLANK _ [facility] Implant Date 03/23/[address] [facility] ICD CLINIC CHECKon 2 AV Delay Adaptive Paced Minimum (ms) [address] [facility] AV Delay Adaptive Rate Maximum (bpm) 110 {beats}/min [facility] AV Delay Adaptive Rate Minimum (bpm) 90 {beats}/min [facility] AV Delay Adaptive Sensed Minimum (ms) [address] [facility] AV Delay Adaptive Status Medium [facility] AV Delay Paced (ms) 90 ms [facility] AV Delay Sensed (ms) 90 ms [facility] Johan LV Pacing Amplitude (volts) [address] [facility] Johan LV Pacing Polarity BI [facility] Johan LV Pacing Pulse Width (ms) 0.[address] [facility] Johan RA Pacing Amplitude (volts) [address] [facility] Johan RA Pacing Polarity BI [facility] Johan RA Pacing Pulse Width (ms) 0.[address] [facility] Johan RA Sensing Amplitude (mvolts) 0.[address] [facility] Johan RA Sensing Blanking Period (ms) [address] [facility] Johan RA Sensing Polarity BI [facility] Johan RA Sensing Refractory Period (ms) [address] [facility] Johan RV Pacing Amplitude (volts) [address] [facility] Johan RV Pacing Polarity BI [facility] Johan RV Pacing Pulse Width (ms) 0.[address] [facility] Johan RV Sensing Amplitude (mvolts) 0.[address] [facility] Johan RV Sensing Blanking Period (ms) [address] [facility] Johan RV Sensing Polarity BI [facility] Detection Configuration (Vent) 1 - Zone [facility] ICD FastVT DetectionStatus DISABLED [facility] ICD-AMS EPISODES 170 {beats}/min [facility] ICD-ATP Episodes (Vent) [address] [facility] ICD-Johan RV Sensing Refractory Period (ms) [address] [facility] ICD-Device Mfg STJ [facility] ICD-FALLBACKRATE_BPM 70 {beats}/min [facility] ICD-Hysteresis Rate Off [facility] ICD-LEADIMPEDANCEATR IAL 362.[address] [facility] ICD-Percent Pacing (Atrial) 80 % [facility] ICD-Percent Pacing (Vent) 97 % [facility] ICD-PMT Intervention Atrial Pace [facility] ICD-PVC Intervention Off [facility] ICD-Rate Modulation Acceleration Reaction Fast [facility] ICD-Rate Modulation Deceleration Medium [facility] ICD-Rate Modulation [place] Auto (+2) [facility] ICD-Rate Modulation Threshold Auto (+0.0) [facility] ICD-Rhythm historically SR [facility] ICD-Shocks Aborted (Vent) [address] [facility] [id number] 0 [facility] ICD-SHOCKSABORTED 0 [facility] ICD-SHOCKSDELIVEREDV ENTRICULAR [address] [facility] ICD-Ventricular Fibrillation [address] [facility] Lead Impedance (LV) 812.5 ohm [facility] Lead Impedance (RV) 387.5 ohm [facility] Lead Impedance High Voltage 69.[address] [facility] Lead1 Mfg STJ [facility] Lead2 Mfg STJ [facility] Lead3 Mfg STJ [facility] Location LV [facility] Location RA [facility] Location RV [facility] Lower Rate (bpm) 70 {beats}/min [facility] Max Sensor Rate (bpm) 110 {beats}/min [facility] MDT_PROG_TACHY_ZONE_ DETECTIONS_STATUS ENABLED [facility] Model 3365-40Q Quadra Assura Cl [facility] Model 1458Q Quartet [facility] Model 2088TC Tendril STS [facility] Model 7122Q Durata SJ4 [facility] Pacemaker Dependent? NO [facility] Pacing Mode DDDR [facility] Serial Number [id number] [facility] Serial Number [id number] [facility] Serial Number [id number] [facility] Serial Number [id number] [facility] Test Charge Time 11.375 [facility] Therapy Status (Vent) Enabled [facility] Thresh RA Sensing Amplitude (mvolts) 3.[address] [facility] Thresh RV Sensing Amplitude (MVOLTS) [address] [facility] Tracking Rate (bpm) 110 {beats}/min [facility] VF Zone Detection Interval [address] [facility] VF Zone Therapy Configuration 1 ATP(s) + 6 Shock(s) [facility] No Panel Informationon 10-04 BLANK _ [facility] Implant Date 03/23/[address] [facility] ICD REMOTE CHECKon 2 AV Delay Adaptive Paced Minimum (ms) [address] [facility] AV Delay Adaptive Sensed Minimum (ms) [address] [facility] AV Delay Paced (ms) 90 ms [facility] AV Delay Sensed (ms) 90 ms [facility] Battery Voltage 2.[address] [facility] Johan LV Pacing Amplitude (volts) [address] [facility] Johan LV Pacing Polarity BI [facility] Johan LV Pacing Pulse Width (ms) 0.[address] [facility] Johan RA Pacing Amplitude (volts) [address] [facility] Johan RA Pacing Polarity BI [facility] Johan RA Pacing Pulse Width (ms) 0.[address] [facility] Johan RA Sensing Amplitude (mvolts) 0.[address] [facility] Johan RA Sensing Polarity BI [facility] Johan RV Pacing Amplitude (volts) [address] [facility] Johan RV Pacing Polarity BI [facility] Johan RV Pacing Pulse Width (ms) 0.[address] [facility] Johan RV Sensing Amplitude (mvolts) 0.[address] [facility] Johan RV Sensing Polarity BI [facility] Detection Configuration (Vent) 1 - Zone [facility] ICD FastVT DetectionStatus DISABLED [facility] ICD-AMS EPISODES 170 {beats}/min [facility] ICD-ATP Episodes (Vent) [address] [facility] ICD-Device Mfg STJ [facility] ICD-LEADIMPEDANCEATR IAL [address] [facility] ICD-Percent Pacing (Atrial) 80 % [facility] ICD-Shocks Aborted (Vent) [address] [facility] [id number] 0 [facility] ICD-SHOCKSABORTED 0 [facility] ICD-SHOCKSDELIVEREDV ENTRICULAR [address] [facility] ICD-VVDELAY_MS [address] [facility] Lead Impedance (LV) 830 ohm [facility] Lead Impedance (RV) 400 ohm [facility] Lead Impedance High Voltage [address] [facility] Lead1 Mfg STJ [facility] Lead2 Mfg STJ [facility] Lead3 Mfg STJ [facility] Location LV [facility] Location RA [facility] Location RV [facility] Lower Rate (bpm) 70 {beats}/min [facility] Max Sensor Rate (bpm) 110 {beats}/min [facility] MDT_PROG_TACHY_ZONE_ DETECTIONS_STATUS ENABLED [facility] Model 3365-40Q Quadra Assura Cl [facility] Model 1458Q Quartet [facility] Model 2088TC Tendril STS [facility] Model 7122Q Durata SJ4 [facility] Pacing Mode DDDR [facility] Serial Number [id number] [facility] Serial Number [id number] [facility] Serial Number [id number] [facility] Serial Number [id number] [facility] Test Charge Energy 40 J [facility] Test Charge Time 11.[address] [facility] Therapy Status (Vent) Enabled [facility] Thresh LV Capture Amplitude (volts) 0.[address] [facility] Thresh LV Capture Duration (ms) 0.[address] [facility] Thresh RA Capture Amplitude (volts) 0.[address] [facility] Thresh RA Capture Duration (ms) 0.[address] [facility] Thresh RA Sensing Amplitude (mvolts) 1.[address] [facility] Thresh RV Capture Amplitude (VOLTS) 0.[address] [facility] Thresh RV Capture Duration (MS) 0.[address] [facility] Thresh RV Sensing Amplitude (MVOLTS) [address] [facility] Tracking Rate (bpm) 110 {beats}/min [facility] VF Zone Detection Interval [address] [facility] VF Zone Therapy Configuration 0 ATP(s) + 6 Shock(s) [facility] No Panel Informationon 09-28 BLANK _ [facility] Implant Date 03/23/[address] [facility] GLYCOHEMOGLOBIN A1Con 2021 ADA RECOMMENDATION SEE BELOW Normal [facility] Comment on above: Result Comment: ADA RECOMMENDED LIMIT 4.0 - 6.0 ADA THERAPEUTIC TARGET < 7.0 ACTION SUGGESTED > 7.0 Performed By: #### C K #### [facility] [address] [place] [address] Dr. Darline Starr Glucose [Mass/Vol] 126 mg/dL Normal [facility] Comment on above: Performed By: #### C K #### [facility] [address] [address] [address] Darline Starr HbA1c (Bld) [Mass fraction] 6.0 % Normal 4.5-6.2 [facility] Comment on above: Performed By: #### C K #### [facility] [address] [place] [address] Dr. Darline Starr ICD REMOTE CHECKon 2 AV Delay Adaptive Paced Minimum (ms) [address] [facility] AV Delay Adaptive Sensed Minimum (ms) [address] [facility] AV Delay Paced (ms) 90 ms [facility] AV Delay Sensed (ms) 90 ms [facility] Battery Voltage 2.[address] [facility] Johan LV Pacing Amplitude (volts) [address] [facility] Johan LV Pacing Polarity BI [facility] Johan LV Pacing Pulse Width (ms) 0.[address] [facility] Johan RA Pacing Amplitude (volts) [address] [facility] Johan RA Pacing Polarity BI [facility] Johan RA Pacing Pulse Width (ms) 0.[address] [facility] Johan RA Sensing Amplitude (mvolts) 0.[address] [facility] Johan RA Sensing Polarity BI [facility] Johan RV Pacing Amplitude (volts) [address] [facility] Johan RV Pacing Polarity BI [facility] Johan RV Pacing Pulse Width (ms) 0.[address] [facility] Johan RV Sensing Amplitude (mvolts) 0.[address] [facility] Johan RV Sensing Polarity BI [facility] Detection Configuration (Vent) 1 - Zone [facility] ICD FastVT DetectionStatus DISABLED [facility] ICD-AMS EPISODES 170 {beats}/min [facility] ICD-ATP Episodes (Vent) [address] [facility] ICD-Device Mfg STJ [facility] ICD-LEADIMPEDANCEATR IAL [address] [facility] ICD-Percent Pacing (Atrial) 80 % [facility] ICD-Shocks Aborted (Vent) [address] [facility] [id number] 0 [facility] ICD-SHOCKSABORTED 0 [facility] ICD-SHOCKSDELIVEREDV ENTRICULAR [address] [facility] ICD-VVDELAY_MS [address] [facility] Lead Impedance (LV) 860 ohm [facility] Lead Impedance (RV) 430 ohm [facility] Lead Impedance High Voltage [address] [facility] Lead1 Mfg STJ [facility] Lead2 Mfg STJ [facility] Lead3 Mfg STJ [facility] Location LV [facility] Location RA [facility] Location RV [facility] Lower Rate (bpm) 70 {beats}/min [facility] Max Sensor Rate (bpm) 110 {beats}/min [facility] MDT_PROG_TACHY_ZONE_ DETECTIONS_STATUS ENABLED [facility] Model 3365-40Q Quadra Assura Cl [facility] Model 1458Q Quartet [facility] Model 2088TC Tendril STS [facility] Model 7122Q Durata SJ4 [facility] Pacing Mode DDDR [facility] Serial Number [id number] [facility] Serial Number [id number] [facility] Serial Number [id number] [facility] Serial Number [id number] [facility] Test Charge Energy 40 J [facility] Test Charge Time 11.[address] [facility] Therapy Status (Vent) Enabled [facility] Thresh LV Capture Amplitude (volts) 0.[address] [facility] Thresh LV Capture Duration (ms) 0.[address] [facility] Thresh RA Capture Amplitude (volts) 0.[address] [facility] Thresh RA Capture Duration (ms) 0.[address] [facility] Thresh RA Sensing Amplitude (mvolts) 2.[address] [facility] Thresh RV Capture Amplitude (VOLTS) 0.[address] [facility] Thresh RV Capture Duration (MS) 0.[address] [facility] Thresh RV Sensing Amplitude (MVOLTS) [address] [facility] Tracking Rate (bpm) 110 {beats}/min [facility] VF Zone Detection Interval [address] [facility] VF Zone Therapy Configuration 0 ATP(s) + 6 Shock(s) [facility] No Panel Informationon 08-29 BLANK _ [facility] Implant Date 03/23/[address] [facility] PTH INTACTon 08-12-2021 PTH, Intact 32 pg/mL Normal 15-65 [facility] Comment on above: Performed By: #### P THINT #### [facility] [address] [place] [address] Dr. Darline Starr CBC AUTO DIFFon 08-10-2021 BASO # 0.0 103/ul Normal 0.0-0.1 [facility] Comment on above: Performed By: #### M ALBCRL #### [facility] [address] [place] [address] Dr. Darline Starr Basophils/100 WBC (Bld) 0.6 % Normal 0.2-2.0 [facility] Comment on above: Performed By: #### M ALBCRL #### [facility] [address] [place] [address] Dr. Darline Starr EO # 0.2 103/ul Normal 0.0-0.7 [facility] Comment on above: Performed By: #### M ALBCRL #### [facility] [address] [place] [address] Dr. Darline Starr Eosinophils/100 WBC (Bld) 3.6 % Normal 0.9-7.0 [facility] Comment on above: Performed By: #### M ALBCRL #### [facility] [address] [place] [address] Dr. Darline Starr Erythrocyte distribution width (RBC) [Ratio] 14.0 % Normal 11.0-15.0 [facility] Comment on above: Performed By: #### M ALBCRL #### [facility] [address] [place] [address] Dr. Darline Starr Hematocrit (Bld) [Volume fraction] 41.2 % Critically low 42.0-54.0 [facility] Comment on above: Performed By: #### M ALBCRL #### [facility] [address] [place] [address] Dr. Darline Starr Hemoglobin (Bld) [Mass/Vol] 13.3 g/dL Critically low 14.0-18.0 [facility] Comment on above: Performed By: #### M ALBCRL #### [facility] [address] [place] [address] Dr. Darline Starr IG # 0.03 10e3/ul Normal 0.00-0.03 [facility] Comment on above: Performed By: #### M ALBCRL #### [facility] [address] [place] [address] Dr. Darline Starr IG % 0.5 % Normal 0.0-0.5 [facility] Comment on above: Performed By: #### M ALBCRL #### [facility] [address] [place] [address] Dr. Darline Starr LYMPH # 1.3 103/ul Normal 1.2-3.8 [facility] Comment on above: Performed By: #### M ALBCRL #### [facility] [address] [place] [address] Dr. Darline Starr Lymphocytes/100 WBC (Bld) 20.4 % Critically low 20.5-60.0 [facility] Comment on above: Performed By: #### M ALBCRL #### [facility] [address] [place] [address] Dr. Darline Starr MANUAL DIFF REQ NO Normal [facility] Comment on above: Performed By: #### M ALBCRL #### [facility] [address] [place] [address] Dr. Darline Starr MCH (RBC) [Entitic mass] 32.0 pg Normal 25.9-34.0 [facility] Comment on above: Performed By: #### M ALBCRL #### [facility] [address] [place] [address] Dr. Darline Starr MCHC (RBC) [Mass/Vol] 32.3 g/dL Normal 29.9-35.2 [facility] Comment on above: Performed By: #### M ALBCRL #### [facility] [address] [place] [address] Dr. Darline Starr MCV (RBC) [Entitic vol] 99.0 fL Critically high 80.0-94.0 [facility] Comment on above: Performed By: #### M ALBCRL #### [facility] [address] [place] [address] Dr. Darline Starr MONO # 0.5 103/ul Normal 0.3-0.8 [facility] Comment on above: Performed By: #### M ALBCRL #### [facility] [address] [place] [address] Dr. Darline Starr Monocytes/100 WBC (Bld) 7.6 % Normal 1.7-12.0 [facility] Comment on above: Performed By: #### M ALBCRL #### [facility] [address] [place] [address] Dr. Darline Starr NEUT # 4.4 103/ul Normal 1.4-6.5 [facility] Comment on above: Performed By: #### M ALBCRL #### [facility] [address] [place] [address] Dr. Darline Starr Neutrophils/100 WBC (Bld) 67.3 % Normal 43.0-75.0 [facility] Comment on above: Performed By: #### M ALBCRL #### [facility] [address] [address] [address] Darline Starr Platelet mean volume (Bld) [Entitic vol] 10.1 fL Normal 9.5-13.5 [facility] Comment on above: Performed By: #### M ALBCRL #### [facility] [address] [place] [address] Dr. Darline Starr PLT 183 103/ul Normal 150-450 [facility] Comment on above: Performed By: #### M ALBCRL #### [facility] [address] [address] [address] Darline Starr RBC 4.16 106/ul Critically low 4.70-6.10 [facility] Comment on above: Performed By: #### M ALBCRL #### [facility] [address] [place] [address] Dr. Darline Starr WBC 6.5 103/ul Normal 4.0-11.0 [facility] Comment on above: Performed By: #### M ALBCRL #### [facility] [address] [place] [address] Dr. Darline Starr RENAL FUNCTION PANELon 08-10 Albumin [Mass/Vol] 3.2 g/dL Critically low 3.4-5.0 [facility] Comment on above: Performed By: #### R ENAL #### [facility] [address] [place] [address] Dr. Darline Starr Calcium [Mass/Vol] 8.7 mg/dL Normal 8.5-10.1 [facility] Comment on above: Performed By: #### R ENAL #### [facility] [address] [place] [address] Dr. Darline Starr Chloride [Moles/Vol] 107 mmol/L Normal 98-107 [facility] Comment on above: Performed By: #### R ENAL #### [facility] [address] [place] [address] Dr. Darline Starr CO2 [Moles/Vol] 29.5 mmol/L Normal 22.0-30.0 [facility] Comment on above: Performed By: #### R ENAL #### [facility] [address] [address] [address] Darline Starr Creatinine [Mass/Vol] 1.63 mg/dL Critically high 0.66-1.25 [facility] Comment on above: Performed By: #### R ENAL #### [facility] [address] [address] [address] Darline Starr EGFR-AF RWANDAN 50 mL/min/1.73m2 Critically low >=60 [facility] Comment on above: Performed By: #### R ENAL #### [facility] [address] [address] [address] Darline Starr EGFR-NON AF RWANDAN 41 mL/min/1.73m2 Critically low >=60 [facility] Comment on above: Performed By: #### R ENAL #### [facility] [address] [address] [address] Darline Starr Glucose [Mass/Vol] 179 mg/dL Critically high 74-106 [facility] Comment on above: Performed By: #### R ENAL #### [facility] [address] [address] [address] Darline Starr Phosphate [Mass/Vol] 3.5 mg/dL Normal 2.5-4.5 [facility] Comment on above: Performed By: #### R ENAL #### [facility] [address] [address] [address] Darline Starr Potassium [Moles/Vol] 4.4 mmol/L Normal 3.4-5.0 [facility] Comment on above: Performed By: #### R ENAL #### [facility] [address] [address] [address] Darline Starr Sodium [Moles/Vol] 143 mmol/L Normal 137-145 [facility] Comment on above: Performed By: #### R ENAL #### [facility] [address] [address] [address] Darline Starr Urea nitrogen [Mass/Vol] 24.0 mg/dL Critically high 7.0-18.0 [facility] Comment on above: Performed By: #### R ENAL #### [facility] [address] [address] [address] Darline Starr UA RANDOM W/MICROSCOPICon BACTERIA NONE SEEN Normal NONE SEEN [facility] Comment on above: Performed By: #### P OCGLUC #### [facility] [address] [address] [address] Darline Starr Bilirubin Ql (U) Negative Normal NEGATIVE [facility] Comment on above: Performed By: #### P OCGLUC #### [facility] [address] [address] [address] Darline Starr CAST SEEN Abnormal NONE SEEN [facility] Comment on above: Performed By: #### P OCGLUC #### [facility] [address] [address] [address] Darline Starr Clarity (U) CLEAR Normal CLEAR [facility] Comment on above: Performed By: #### P OCGLUC #### [facility] [address] [place] [address] Dr. Darline Starr Color (U) LT. YELLOW Normal YELLOW [facility] Comment on above: Performed By: #### P OCGLUC #### [facility] [address] [address] [address] Darline Starr Crystals LM Nom (Urine sed) NONE SEEN Normal NONE SEEN [facility] Comment on above: Performed By: #### P OCGLUC #### [facility] [address] [place] [address] Dr. Darline Starr Epithelial cells LM Ql (Urine sed) FEW Abnormal NONE SEEN /RARE [facility] Comment on above: Performed By: #### P OCGLUC #### [facility] [address] [address] [address] Darline Starr Glucose Ql (U) Negative Normal NEGATIVE [facility] Comment on above: Performed By: #### P OCGLUC #### [facility] [address] [place] [address] Dr. Darline Starr Hemoglobin Ql (U) Negative Normal NEGATIVE [facility] Comment on above: Performed By: #### P OCGLUC #### [facility] [address] [address] [address] Darline Starr HYALINE CAST FEW Normal [facility] Comment on above: Performed By: #### P OCGLUC #### [facility] [address] [place] [address] Dr. Darline Starr Ketones Ql (U) Negative Normal NEGATIVE [facility] Comment on above: Performed By: #### P OCGLUC #### [facility] [address] [place] [address] Dr. Darline Starr LEUKOCYTES Negative Normal NEGATIVE [facility] Comment on above: Performed By: #### P OCGLUC #### [facility] [address] [address] [address] Darline Starr MUCOUS NONE SEEN Normal NONE SEEN [facility] Comment on above: Performed By: #### P OCGLUC #### [facility] [address] [place] [address] Dr. Darline Starr Nitrite Ql (U) Negative Normal NEGATIVE [facility] Comment on above: Performed By: #### P OCGLUC #### [facility] [address] [place] [address] Dr. Darline Starr pH (U) 5.0 [pH] Normal 5-9 [facility] Comment on above: Performed By: #### P OCGLUC #### [facility] [address] [place] [address] Dr. Darline Starr RBC 0-2 Normal 0-2 [facility] Comment on above: Performed By: #### P OCGLUC #### [facility] [address] [place] [address] Dr. Darline Starr SPEC GRAVITY 1.025 Normal 1.005-<=1.025 [facility] Comment on above: Performed By: #### P OCGLUC #### [facility] [address] [place] [address] Dr. Darline Starr UA PROTEIN Negative Normal NEGATIVE/ TRACE [facility] Comment on above: Performed By: #### P OCGLUC #### [facility] [address] [place] [address] Dr. Darline Starr Urobilinogen Qn (U) 0.2 {Jess'U}/dL Normal 0.2 - 1. 0 [facility] Comment on above: Performed By: #### P OCGLUC #### [facility] [address] [address] [address] Darline Starr WBC 0-2 Abnormal NONE SEEN [facility] Comment on above: Performed By: #### P OCGLUC #### [facility] [address] [address] [address] Darline Starr URINE T PROTEIN CREAT RATIOo n 08-10-2021 Protein (U) [Mass/Vol] 18.1 mg/dL Critically high <=12.0 [facility] Comment on above: Performed By: #### P OCGLUC #### [facility] [address] [place] [address] Dr. Darline Starr UR PROT CREAT RAT 0.10 Normal [facility] Comment on above: Performed By: #### P OCGLUC #### [facility] [address] [address] [address] Darline Starr URINE CREAT 189.98 mg/dL Normal 20.00-300.00 [facility] Comment on above: Performed By: #### P OCGLUC #### [facility] [address] [place] [address] Dr. Darline Starr VITAMIN D 25 OHon 08-10-2021 VIT D 25-OH 51.0 ng/mL Normal [facility] Comment on above: Performed By: #### P OCGLUC #### [facility] [address] [address] [address] Darline Starr VIT D RANGES SEE BELOW Normal [facility] Comment on above: Result Comment: <20 ng/mL Vit D deficient 20 - <30 ng/mL Vit D insufficient 30 - 100 ng/mL Vit D sufficient >100 ng/mL Potential Toxicity Performed By: #### P OCGLUC #### [facility] [address] [place] [address] Dr. Darline Starr Potassiumon 04-23-2020 Potassium [Moles/Vol] 4.9 mmol/L Normal 3.4-4.9 [facility] Comment on above: Result Comment: Spec imen hemolysis has exceeded the interference as defined by Patsy. Value may be falsely increased. Suggest recollection if clinically indicated. Performed By: #### K #### [facility] [address] [place] [address] Social History Date Type Detail Facility Start: 08-13-2022 End: 03-01-2023 History of Social function [facility] Start: 08-13-2022 End: 03-01-2023 Tobacco use panel [facility] Start: 01-11-2022 End: 03-14-2022 Exposure to SARS-CoV-2 (event) Unable to assess [facility] Start: 08-08-2021 End: 07-31-2023 Alcohol intake Current non-drinker of alcohol (finding) [facility] Start: 07-22-2021 End: 10-18-2021 Exposure to SARS-CoV-2 (event) Not sure [facility] Start: 08-11-2018 Gender identity Identifies as male gender (finding) [facility] Start: 08-11-2018 Sexual orientation Heterosexual (fin ding) [facility] Start: 12-05-2016 End: 02-13-2022 Tobacco smoking status NHIS Never smoked tobacco [facility] Start: 12-05-2016 End: 02-13-2022 Tobacco use and exposure Smokeless tobacco non-user [facility] Start: 1940 Sex Assigned At Male [facility] National Score (1-10 0), lower number is lower risk [address] [facility] Vital Signs Date Time Vital Sign Value Performing Clinician Faci lity 09-03-2023 13:52-0400 Body height 185.4 cm Rossy Wright APRN.CNP Work Phone: [facility] 09-03-2023 13:52-0400 Body weight 112.4 kg Rossy Wright APRN.CNP Work Phone: [facility] 09-03-2023 13:52-0400 Diastolic blood pressure 57 mm[Hg] Rossy Wright APRN.CNP Work Phone: [facility] 09-03-2023 13:52-0400 Heart rate 70 /min Rossy Wright APRN.CNP Work Phone: [facility] 09-03-2023 13:52-0400 Systolic blood pressure 89 mm[Hg] Rossy Trinidad MORSECONTAINER SHOP WELDER Work Phone: [facility] 07-31-2023 10:34-0400 Body height 185.4 cm Lakesha Sanchez MD Work Phone: [facility] 07-31-2023 10:34-0400 Body mass index (BMI) [Ratio] 32.19 kg/m2 Lakesha Sanchez MD Work Phone: [facility] 07-31-2023 10:34-0400 Body weight 110.68 kg Lakesha Sanchez MD Work Phone: [facility] 07-31-2023 10:34-0400 Diastolic blood pressure 60 mm[Hg] Lakesha Sanchez MD Work Phone: [facility] 07-31-2023 10:34-0400 Heart rate 69 /min Lakesha Sanchez MD Work Phone: [facility] 07-31-2023 10:34-0400 Respiratory rate 16 /min Lakesha Sanchez MD Work Phone: [facility] 07-31-2023 10:34-0400 SaO2% (BldA) [Mass fraction] 97 % Lakesha Sanchez MD Work Phone: [facility] 07-31-2023 10:34-0400 Systolic blood pressure 107 mm[Hg] Lakesha Sanchez MD Work Phone: [facility] 03-27-2023 12:01-0500 Body height 185.4 cm Lyle De La Rosa MD Work Phone: [facility] 03-27-2023 12:01-0500 Body weight 112.04 kg Lyle De La Rosa MD Work Phone: [facility] 03-27-2023 12:01-0500 Diastolic blood pressure 57 mm[Hg] Lyle De La Rosa MD Work Phone: [facility] 03-27-2023 12:01-0500 Heart rate 73 /min Lyle De La Rosa MD Work Phone: [facility] 03-27-2023 12:01-0500 Systolic blood pressure 89 mm[Hg] Lyle De La Rosa MD Work Phone: [facility] 03-01-2023 14:51-0400 Body height 185.4 cm Savanah Deitzer DO Work Phone: [facility] 03-01-2023 14:51-0400 Body weight 120.2 kg Savanah Deitzer DO Work Phone: [facility] 03-01-2023 14:51-0400 Diastolic blood pressure 66 mm[Hg] Savanah Deitzer DO Work Phone: [facility] 03-01-2023 14:51-0400 Heart rate 70 /min Savanah Deitzer DO Work Phone: [facility] 03-01-2023 14:51-0400 Systolic blood pressure 102 mm[Hg] Savanah Deitzer DO Work Phone: [facility] 08-13-2022 10:48-0400 Body height 185.4 cm Rossy Trinidad LOAN COUNSELOR.CONTAINER [employer] WELDER Work Phone: [facility] 08-13-2022 10:48-0400 Body weight 120.2 kg Rossy Trinidad LOAN COUNSELOR.CONTAINER SH[employer] WELDER Work Phone: [facility] 08-13-2022 10:48-0400 Diastolic blood pressure 58 mm[Hg] Rossy Trinidad LOAN COUNSELOR.CONTAINER SHOP WELDER Work Phone: [facility] 08-13-2022 10:48-0400 Heart rate 70 /min Rossy Trinidad LOAN COUNSELOR.CONTAINER SHOP WELDER Work Phone: [facility] 08-13-2022 10:48-0400 Systolic blood pressure 91 mm[Hg] Rossy Trinidad LOAN COUNSELOR.CONTAINER SHOP WELDER Work Phone: [facility] 07-04-2022 11:01-0500 Body weight 118.84 kg Lakesha Sanchez MD Work Phone: [facility] 07-04-2022 11:01-0500 Diastolic blood pressure 57 mm[Hg] Lakesha Sanchez MD Work Phone: [facility] 07-04-2022 11:01-0500 Heart rate 72 /min Lakesha Sanchez MD Work Phone: [facility] 07-04-2022 11:01-0500 SaO2% (BldA) [Mass fraction] 95 % Lakesha Sanchez MD Work Phone: [facility] 07-04-2022 11:01-0500 Systolic blood pressure 94 mm[Hg] Lakesha Sanchez MD Work Phone: [facility] 10-04-2021 13:27-0400 Body height 185.4 cm Lakesha Sanchez MD Work Phone: [facility] 10-04-2021 13:27-0400 Body weight 123.38 kg Lakesha Sanchez MD Work Phone: [facility] 10-04-2021 13:27-0400 Diastolic blood pressure 66 mm[Hg] Lakesha Sanchez MD Work Phone: [facility] 10-04-2021 13:27-0400 Heart rate 68 /min Lakesha Sanchez MD Work Phone: [facility] 10-04-2021 13:27-0400 SaO2% (BldA) [Mass fraction] 98 % Lakesha Sanchez MD Work Phone: [facility] 10-04-2021 13:27-0400 Systolic blood pressure 129 mm[Hg] Lakesha Sanchez MD Work Phone: [facility] Clinical Notes 10-04-2021 to 09-03-2023 Rossy Wirght APRN.CONTAINER SHOP WELDER - 09/03/2023 1:50 PM Lakesha Dozier MD - 08/01/2023 9:22 AM EDTTelephone Encounter - Andre Watkins - 07/22/2023 12:29 PM ESTPatient Instructions Note Date & Type Note Facility 09-03-2023 Note HNO ID: [id number] Author: ROSSY WRIGHT APRN.CONTAINER SHOP WELDER Service: ? Author Type: Nurse Practitioner Type: Progress Notes Filed: 09/03/2023 14:05 Note Text: Pt is an 83 yo male here for follow up for CKD stage 3-direct cause unknown. He was last seen 02/2023. No changes made at that time He has a hx of HTN, DM and CAD s/p PPM 2013, CHF----no proteinuria noted. Had new PPM placed 10/18/2021. Saw cardiology 2 weeks ago. No changes made Baseline Scr is ~ 1.5-1.8. Reviewed outside labs earlier this week and sent for scanning No new meds. No admissions since last OV. Here with PAST MEDICAL HISTORY Diagnosis Date A-fib ([facility]) CAD (coronary artery disease) s/p CABG 4v, pacemaker CKD (chronic kidney disease) stage 3, GFR 30-59 ml/min ([facility]) Diabetes mellitus type 2 in obese GERD (gastroesophageal reflux disease) Hyperlipidemia Hypertension Creatinine Date Value Ref Range Status 07/04/2022 1.71 (H) 0.73 - 1.22 mg/dL Final 10/04/2021 1.62 (H) 0.73 - 1.22 mg/dL Final 10/12/2020 1.58 (H) 0.73 - 1.22 mg/dL Final 10/12/2020 1.57 (H) 0.73 - 1.22 mg/dL Final Potassium Date Value Ref Range Status 07/04/2022 4.6 3.7 - 5.1 mmol/L Final 10/04/2021 4.9 3.7 - 5.1 mmol/L Final 10/12/2020 5.0 3.7 - 5.1 mmol/L Final 10/12/2020 5.0 3.7 - 5.1 mmol/L Final Exam General: NAD, alert Lungs: CTA bilaterally Heart: Irreg, + murmur Extremities: No edema BP - standardized method Pulse 1 BP #1: 83/53 Pulse #1: 70 beats/min 2 BP #2 : 92/60 Pulse #2 : 70 beats/min 3 BP #3 : 92/58 Pulse #3 : 70 beats/min Average Average BP: 89/57 Orthostatic vitals Supine Sitting Standing Standing BP : (physical limitations) Standing pulse : (physical limitations) BP cuff location BP cuff location: Right upper arm BP cuff size BP cuff size: large adult Comments for BP values First BP (right) First BP (left) Impression/plan CKD stage 3-nonproteinuric, with stable baseline Scr of 1.5-1.8. Reviewed NSAID avoidance. Follow labs HTN-BPs are at his baseline. Asymptomatic of low BP. No changes. Heme-Hgb WNL MBD-Ca, Po4, PTH and Vit D stable Plan No changes Labs and follow up in 6 months Rossy Wright APRN.CONTAINER SHOP WELDER [facility] 09-03-2023 History of Presen t illness Narrative Pt is an 83 yo male here for follow up for CKD stage 3-direct cause unknown. He was last seen 02/2023. No changes made at that time He has a hx of HTN, DM and CAD s/p PPM 2013, CHF----no proteinuria noted. Had new PPM placed 10/18/2021. Saw cardiology 2 weeks ago. No changes made Baseline Scr is ~ 1.5-1.8. Reviewed outside labs earlier this week and sent for scanning No new meds. No admissions since last OV. Here with PAST MEDICAL HISTORY Diagnosis Date A-fib ([facility]) CAD (coronary artery disease) s/p CABG 4v, pacemaker CKD (chronic kidney disease) stage 3, GFR 30-59 ml/min ([facility]) Diabetes mellitus type 2 in obese GERD (gastroesophageal reflux disease) Hyperlipidemia Hypertension Creatinine Date Value Ref Range Status 07/04/2022 1.71 (H) 0.73 - 1.22 mg/dL Final 10/04/2021 1.62 (H) 0.73 - 1.22 mg/dL Final 10/12/2020 1.58 (H) 0.73 - 1.22 mg/dL Final 10/12/2020 1.57 (H) 0.73 - 1.22 mg/dL Final Potassium Date Value Ref Range Status 07/04/2022 4.6 3.7 - 5.1 mmol/L Final 10/04/2021 4.9 3.7 - 5.1 mmol/L Final 10/12/2020 5.0 3.7 - 5.1 mmol/L Final 10/12/2020 5.0 3.7 - 5.1 mmol/L Final Exam General: NAD, alert Lungs: CTA bilaterally Heart: Irreg, + murmur Extremities: No edema BP - standardized method Pulse 1 BP #1: 83/53 Pulse #1: 70 beats/min 2 BP #2 : 92/60 Pulse #2 : 70 beats/min 3 BP #3 : 92/58 Pulse #3 : 70 beats/min Average Average BP: 89/57 Orthostatic vitals Supine Sitting Standing Standing BP : (physical limitations) Standing pulse : (physical limitations) BP cuff location BP cuff location: Right upper arm BP cuff size BP cuff size: large adult Comments for BP values First BP (right) First BP (left) Impression/plan CKD stage 3-nonproteinuric, with stable baseline Scr of 1.5-1.8. Reviewed NSAID avoidance. Follow labs HTN-BPs are at his baseline. Asymptomatic of low BP. No changes. Heme-Hgb WNL MBD-Ca, Po4, PTH and Vit D stable Plan No changes Labs and follow up in 6 months Rossy Wright APRN.CONTAINER [employer]ELDER documented in this encounter [facility] 08-01-2023 Note HNO ID: [id number] Author: LAKESHA SANCHEZ MD Service: ? Author Type: Physician Type: Progress Notes Filed: 10/15/2023 10:22 Note Text: [facility] [place] [facility] Department of Cardiovascular Medicine SECTION OF CLINICAL CARDIOLOGY OUTPATIENT VISIT DATE August 01, 2023 OUTPATIENT VISIT TYPE ESTABLISHED PRIMARY CARE PHYSICIAN: Michel Alcazar MD ([facility]) [address] [place] [address] REFERRING PHYSICIAN: No referring provider defined for this encounter. 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 Taylor is a 83 year old male who presents today for a cardiovascular medicine follow-up visit of his above problems. Overall, he is doing well and notes no chest pain or shortness of breath.. He has lost a significant amount of weight and was 272 pounds in September 2021 it is now down to 247 pounds which is excellent. He denies chest pain, shortness of breath, orthopnea, cough, edema, palpitations, PND, lightheadedness or syncope. PAST CARDIAC HISTORY: None, as above PAST MEDICAL HISTORY Diagnosis Date A-fib ([facility]) CAD (coronary artery disease) s/p CABG 4v, pacemaker CKD (chronic kidney disease) stage 3, GFR 30-59 ml/min ([facility]) Diabetes mellitus type 2 in obese GERD (gastroesophageal reflux disease) Hyperlipidemia Hypertension PAST SURGICAL HISTORY Procedure Laterality Date CABG (4) VEIN GRAFTS AND ARTERIAL GRAFT(S) 2002? PACEMAKER 2013 PAST SURGICAL HISTORY OF knee SOCIAL HISTORY Social History Tobacco Use Smoking status: Never Smokeless tobacco: Never Vaping Use Vaping Use: Never used Substance Use Topics Alcohol use: No Drug use: No FAMILY HISTORY Problem Relation Age of Onset Coronary Artery Disease Mother Coronary Artery Disease Father Patient-Entered Questionnaire Scores 07/25/2023 Patient Entered Questionnaires Average hours of sleep per day 7 07/25/2023 Insomnia Severity Index (MILLY) Score Incomplete 07/25/2023 PROMIS Global Health - (T-Scores - the mean of general population = 50. Five points is a clinically meaningful difference.) Physical T-Score 39.8 Mental T-Score 36.3 Sleep Duration Level: N/A ALLERGIES: ALLERGIES Allergen Reactions Iv Dye [Iodinated C* Other: See Comments May cause kidney problems Sulfa (Sulfonamide * Itching MEDICATIONS: ELIQUIS 2.5 mg tab(s) take 1 tablet by mouth twice daily (Patient taking differently: Take 2.5 mg by mouth once daily.) atorvastatin (LIPITOR) 40 mg tablet Take 1 tablet by mouth daily at bedtime. metoprolol succinate ER (TOPROL XL) 50 mg 24 hr tablet Take 1 tablet by mouth once daily. furosemide (LASIX) 20 mg tablet Take 1 tablet by mouth once daily. Take one pill daily. Take an additional pill as needed to keep weight stable. clopidogrel (PLAVIX) 75 mg tablet Take 1 tablet by mouth once daily. isosorbide mononitrate ER (IMDUR) 30 mg 24 hr tablet Take 1 tablet by mouth once daily. Take 30 mg by mouth once daily, IN THE MORNING. lisinopril (ZESTRIL) 5 mg tablet Take 1 tablet by mouth once daily. spironolactone (ALDACTONE) 25 mg tablet Take 0.5 tablets by mouth once daily. ONETOUCH ULTRA TEST test strip once daily. USE TO TEST BLOOD SUGAR DAILY nitroglycerin sublingual (NITROQUICK) 0.4 mg SL tablet Dissolve 1 tablet under the tongue every 5 minutes as needed for chest pain. Echinacea 400 mg cap Take by mouth. glimepiride (AMARYL) 4 mg tablet Take 1 tablet by mouth once daily. At noon gabapentin (NEURONTIN) 300 mg capsule Take 300 mg by mouth twice daily. tamsulosin ER (FLOMAX) 0.4 mg cp24 Take 0.4 mg by mouth daily at bedtime. MULTIVITAMIN-FERROUS FUMARATE-FOLIC ACID 18 MG-400 MCG TABLET Take 1 tablet by mouth once daily. CALCIUM CARBONATE (CORAL CALCIUM ORAL) Take by mouth. Cinnamon Bark 500 mg cap Take 1,000 tablets by mouth. cyanocobalamin (VITAMIN B-12) 1,000 mcg tab Take 1,000 mcg by mouth once daily. (Patient not taking: Reported on 03/27/2023) REVIEW OF SYSTEMS: No review of systems performed PHYSICAL EXAMINATION: BP 107/60 (BP Site: Left Arm, BP Position: Sitting, BP Cuff Size: Regular Adult) Pulse 69 Resp 16 Ht 185.4 cm (6' 1 ) Wt 110.7 kg (244 lb) SpO2 97% BMI 32.19 kg/m? General: Well appearing, in no acute distress. Skin: No clubbing, no cyanosis. Eyes: Extra ocular movements intact Oropharynx: Teeth in good repair. Neck: No jugular venous distention, no carotid bruits, carotids have a normal upstroke, no palpable thyromegaly. Lungs: Clear to auscultation bilaterally, no wheezing or rhonchi. Heart: Regular rhythm, PMI not displaced, S1, S2 normal, no S3, no S4, no heaves, no rub and n (more content not included)... [facility] 08-01-2023 History of Presen t illness Narrative Images from the original note were not included. [facility] [place] [facility] Department of Cardiovascular Medicine SECTION OF CLINICAL CARDIOLOGY OUTPATIENT VISIT DATE August 01, 2023 OUTPATIENT VISIT TYPE ESTABLISHED PRIMARY CARE PHYSICIAN: Michel Alcazar MD ([facility]) [address] [place] [address] REFERRING PHYSICIAN: No referring provider defined for this encounter. 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 Taylor is a 83 year old male who presents today for a cardiovascular medicine follow-up visit of his above problems. Overall, he is doing well and notes no chest pain or shortness of breath.. He has lost a significant amount of weight and was 272 pounds in September 2021 it is now down to 247 pounds which is excellent. He denies chest pain, shortness of breath, orthopnea, cough, edema, palpitations, PND, lightheadedness or syncope. PAST CARDIAC HISTORY: None, as above PAST MEDICAL HISTORY Diagnosis Date A-fib ([facility]) CAD (coronary artery disease) s/p CABG 4v, pacemaker CKD (chronic kidney disease) stage 3, GFR 30-59 ml/min ([facility]) Diabetes mellitus type 2 in obese GERD (gastroesophageal reflux disease) Hyperlipidemia Hypertension PAST SURGICAL HISTORY Procedure Laterality Date CABG (4) VEIN GRAFTS & ARTERIAL GRAFT(S) 2002? PACEMAKER 2014 PAST SURGICAL HISTORY OF knee SOCIAL HISTORY Social History Tobacco Use Smoking status: Never Smokeless tobacco: Never Vaping Use Vaping Use: Never used Substance Use Topics Alcohol use: No Drug use: No FAMILY HISTORY Problem Relation Age of Onset Coronary Artery Disease Mother Coronary Artery Disease Father Patient-Entered Questionnaire Scores 07/25/2023 Patient Entered Questionnaires Average hours of sleep per day 7 07/25/2023 Insomnia Severity Index (MILLY) Score Incomplete 07/25/2023 PROMIS Global Health - (T-Scores - the mean of general population = 50. Five points is a clinically meaningful difference.) Physical T-Score 39.8 Mental T-Score 36.3 Sleep Duration Level: N/A ALLERGIES: ALLERGIES Allergen Reactions Iv Dye [Iodinated C* Other: See Comments May cause kidney problems Sulfa (Sulfonamide * Itching MEDICATIONS: ELIQUIS 2.5 mg tab(s) take 1 tablet by mouth twice daily (Patient taking differently: Take 2.5 mg by mouth once daily.) atorvastatin (LIPITOR) 40 mg tablet Take 1 tablet by mouth daily at bedtime. metoprolol succinate ER (TOPROL XL) 50 mg 24 hr tablet Take 1 tablet by mouth once daily. furosemide (LASIX) 20 mg tablet Take 1 tablet by mouth once daily. Take one pill daily. Take an additional pill as needed to keep weight stable. clopidogrel (PLAVIX) 75 mg tablet Take 1 tablet by mouth once daily. isosorbide mononitrate ER (IMDUR) 30 mg 24 hr tablet Take 1 tablet by mouth once daily. Take 30 mg by mouth once daily, IN THE MORNING. lisinopril (ZESTRIL) 5 mg tablet Take 1 tablet by mouth once daily. spironolactone (ALDACTONE) 25 mg tablet Take 0.5 tablets by mouth once daily. ONETOUCH ULTRA TEST test strip once daily. USE TO TEST BLOOD SUGAR DAILY nitroglycerin sublingual (NITROQUICK) 0.4 mg SL tablet Dissolve 1 tablet under the tongue every 5 minutes as needed for chest pain. Echinacea 400 mg cap Take by mouth. glimepiride (AMARYL) 4 mg tablet Take 1 tablet by mouth once daily. At noon gabapentin (NEURONTIN) 300 mg capsule Take 300 mg by mouth twice daily. tamsulosin ER (FLOMAX) 0.4 mg cp24 Take 0.4 mg by mouth daily at bedtime. MULTIVITAMIN-FERROUS FUMARATE-FOLIC ACID 18 MG-400 MCG TABLET Take 1 tablet by mouth once daily. CALCIUM CARBONATE (CORAL CALCIUM ORAL) Take by mouth. Cinnamon Bark 500 mg cap Take 1,000 tablets by mouth. cyanocobalamin (VITAMIN B-12) 1,000 mcg tab Take 1,000 mcg by mouth once daily. (Patient not taking: Reported on 03/27/2023) REVIEW OF SYSTEMS: No review of systems performed PHYSICAL EXAMINATION: BP 107/60 (BP Site: Left Arm, BP Position: Sitting, BP Cuff Size: Regular Adult) Pulse 69 Resp 16 Ht 185.4 cm (6' 1 ) Wt 110.7 kg (244 lb) SpO2 97% BMI 32.19 kg/m General: Well appearing, in no acute distress. Skin: No clubbing, no cyanosis. Eyes: Extra ocular movements intact Oropharynx: Teeth in good repair. Neck: No jugular venous distention, no carotid bruits, carotids have a normal upstroke, no palpable thyromegaly. Lungs: Clear to auscultation bilaterally, no wheezing or rhonchi. Heart: Regular rhythm, PMI not displaced, S1, S2 normal, no S3, no S4, no heaves, no rub and no murmur. Abdomen: Soft, nontender, bowel sounds normal, no palpable organomegaly, no bruits. Extremities: No peripheral edema . Grade 2/4 distal pulses bilaterally. Neuro: Oriented to person, place and time, alert, cooperative, gait coordinated. CARDIOVASCULAR MEDICINE TESTING: Electrocardiogram: Paced rhythm Laboratory Testing: None Echocardiogram:None Last EKG Result Conclusion ECG COMPLETE Collected: 03/27/2023 10:14 AM (Preliminary result) Impression: AV DUAL-PACED RHYTHM WITH OCCASIONAL VENTRICULAR-PACED COMPLEXES AND WITH OCCASIONAL PREMATURE VENTRICULAR COMPLEXES ABNORMAL ECG I have personally reviewed the Electrocardiogram. IMPRESSION: Mr. Taylor is a 83 year old male presents above problems. Overall doing well with good medication tolerance. Also doing well with regards to weight loss. Plan for continued medical management. PLAN AND RECOMMENDATIONS: 1. Coronary artery disease, ischemic cardiomyopathy, chronic systolic heart failure, history of bypass surgery: Continue current medications. 2. Atrial fibrillation: Continue anticoagulation. 3. Obesity: Continue weight loss 4. Disposition: Follow with Denisse Palomo in 6 months and return to see me in 1 year. CONTACT INFORMATION: Lakesha Sanchez M.D., F.A.C.C. Staff Pmo Lead [facility] Desk [id number] [address] Office - [phone] extension [phone] Office Appointments: [phone] extension [phone] documented in this encounter [facility] 07-22-2023 Miscellaneous Notes Received records from [facility] - ED visit 07-09-2023 Uploaded to scanned documents Appt on 07/31/2023 Last appt - 12/26/2022 Andre Torres [facility] Asst III, Clinical Cardiology documented in this encounter [facility] 03-27-2023 Note HNO ID: [id number] Author: Lyle De La Rosa MD Service: ? Author Type: Physician Type: Progress Notes Filed: 03/27/2023 1:45 PM Note Text: [facility] [place] [facility] Department of Cardiovascular Medicine SECTION OF CARDIAC PACING and ELECTROPHYSIOLOGY OUTPATIENT VISIT DATE March 27, 2023 OUTPATIENT VISIT TYPE ESTABLISHED PRIMARY CARE PHYSICIAN: Michel Alcazar MD ([facility]) [address] [place] [address] CHIEF 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 Taylor is a 82 year old male who presents today for follow-up visit for device management. 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 Last echo 04/2021 EF 30-35%. He was last seen in office 08/01/[address] Holder. He had generator change 10/18/21. Device check today shows no new arrhythmias, BiV pacing 99%. He reports he has been feeling well overall. He endorses shortness of breath with exertion. He denies chest pain, palpitations, edema, lightheadedness or syncope. PAST MEDICAL HISTORY Diagnosis Date A-fib ([facility]) CAD (coronary artery disease) s/p CABG 4v, pacemaker CKD (chronic kidney disease) stage 3, GFR 30-59 ml/min ([facility]) Diabetes mellitus type 2 in obese ([facility]) GERD (gastroesophageal reflux disease) Hyperlipidemia Hypertension PAST SURGICAL HISTORY Procedure Laterality Date CABG (4) VEIN GRAFTS AND ARTERIAL GRAFT(S) 2002? PACEMAKER 2014 PAST SURGICAL HISTORY OF knee SOCIAL HISTORY Social History Tobacco Use Smoking status: Never Smokeless tobacco: Never Vaping Use Vaping Use: Never used Substance Use Topics Alcohol use: No Drug use: No FAMILY HISTORY Problem Relation Age of Onset Coronary Artery Disease Mother Coronary Artery Disease Father ALLERGIES: ALLERGIES Allergen Reactions Iv Dye [Iodinated C* Other: See Comments May cause kidney problems Sulfa (Sulfonamide * Itching MEDICATIONS: ELIQUIS 2.5 mg tab(s) take 1 tablet by mouth twice daily (Patient taking differently: Take 2.5 mg by mouth once daily.) atorvastatin (LIPITOR) 40 mg tablet Take 1 tablet by mouth daily at bedtime. metoprolol succinate ER (TOPROL XL) 50 mg 24 hr tablet Take 1 tablet by mouth once daily. furosemide (LASIX) 20 mg tablet Take 1 tablet by mouth once daily. Take one pill daily. Take an additional pill as needed to keep weight stable. clopidogrel (PLAVIX) 75 mg tablet Take 1 tablet by mouth once daily. isosorbide mononitrate ER (IMDUR) 30 mg 24 hr tablet Take 1 tablet by mouth once daily. Take 30 mg by mouth once daily, IN THE MORNING. lisinopril (ZESTRIL) 5 mg tablet Take 1 tablet by mouth once daily. spironolactone (ALDACTONE) 25 mg tablet Take 0.5 tablets by mouth once daily. [employer] [place] ULTRA TEST test strip once daily. USE TO TEST BLOOD SUGAR DAILY nitroglycerin sublingual (NITROQUICK) 0.4 mg SL tablet Dissolve 1 tablet under the tongue every 5 minutes as needed for chest pain. Echinacea 400 mg cap Take by mouth. glimepiride (AMARYL) 4 mg tablet Take 1 tablet by mouth once daily. At noon gabapentin (NEURONTIN) 300 mg capsule Take 300 mg by mouth twice daily. tamsulosin ER (FLOMAX) 0.4 mg cp24 Take 0.4 mg by mouth daily at bedtime. MULTIVITAMIN-FERROUS FUMARATE-FOLIC ACID 18 MG-400 MCG TABLET Take 1 tablet by mouth once daily. CALCIUM CARBONATE (CORAL CALCIUM ORAL) Take by mouth. Cinnamon Bark 500 mg cap Take 1,000 tablets by mouth. cyanocobalamin (VITAMIN B-12) 1,000 mcg tab Take 1,000 mcg by mouth once daily. (Patient not taking: Reported on 03/27/2023) Denisse Brothers RN PHYSICAL EXAMINATION: There were no vitals taken for this visit. General: Well appearing, in no acute distress. Skin: No clubbing, no cyanosis. Eyes: Extra ocular movements intact Oropharynx: Teeth in good repair. Neck: No jugular venous distention, no carotid bruits, carotids have a normal upstroke, no palpable thyromegaly. Lungs: Clear to auscultation bilaterally, no wheezing or rhonchi. Heart: Regular rhythm, PMI not displaced, S1, S2 normal, no S3, no S4, no heaves, no rub and no murmur. Abdomen: Soft, nontender, bowel sounds normal, no palpable organomegaly, no bruits. Extremities: No peripheral edema . Grade 2/4 distal pulses bilaterally. Neuro: Oriented to person, place and time, alert, cooperative, gait coordinated. CARDIOVASCULAR MEDICINE TESTING: EKG today: Device check today: MULTI CHAMBER ICD EVALUATION PRESENTS FOR: Appt with Dr De La Rosa PRESENTING EGM: /AP/BiV paced UNDERLYING RHYTHM: SR ~66 BATTERY STATUS: Estimated time remaining to NICO is 5.7 yrs. COUNTERS SINCE: 07/04/22, last remote 01/25/23 ATRIAL ARRHYTHMIAS: There were 0 triggered episodes of atrial high rates since last remote. Last remote listed (more content not included)... [facility] 03-27-2023 History of Presen t illness Narrative Images from the original note were not included. [facility] [place] [facility] Department of Cardiovascular Medicine SECTION OF CARDIAC PACING and ELECTROPHYSIOLOGY OUTPATIENT VISIT DATE March 27, 2023 OUTPATIENT VISIT TYPE ESTABLISHED PRIMARY CARE PHYSICIAN: Michel Alcazar MD ([facility]) [address] [place] [address] CHIEF 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 Taylor is a 82 year old male who presents today for follow-up visit for device management. 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 Last echo 04/2021 EF 30-35%. He was last seen in office 08/01/[address] Holder. He had generator change 10/18/21. Device check today shows no new arrhythmias, BiV pacing 99%. He reports he has been feeling well overall. He endorses shortness of breath with exertion. He denies chest pain, palpitations, edema, lightheadedness or syncope. PAST MEDICAL HISTORY Diagnosis Date A-fib ([facility]) CAD (coronary artery disease) s/p CABG 4v, pacemaker CKD (chronic kidney disease) stage 3, GFR 30-59 ml/min ([facility]) Diabetes mellitus type 2 in obese ([facility]) GERD (gastroesophageal reflux disease) Hyperlipidemia Hypertension PAST SURGICAL HISTORY Procedure Laterality Date CABG (4) VEIN GRAFTS & ARTERIAL GRAFT(S) 2002? PACEMAKER 2013 PAST SURGICAL HISTORY OF knee SOCIAL HISTORY Social History Tobacco Use Smoking status: Never Smokeless tobacco: Never Vaping Use Vaping Use: Never used Substance Use Topics Alcohol use: No Drug use: No FAMILY HISTORY Problem Relation Age of Onset Coronary Artery Disease Mother Coronary Artery Disease Father ALLERGIES: ALLERGIES Allergen Reactions Iv Dye [Iodinated C* Other: See Comments May cause kidney problems Sulfa (Sulfonamide * Itching MEDICATIONS: ELIQUIS 2.5 mg tab(s) take 1 tablet by mouth twice daily (Patient taking differently: Take 2.5 mg by mouth once daily.) atorvastatin (LIPITOR) 40 mg tablet Take 1 tablet by mouth daily at bedtime. metoprolol succinate ER (TOPROL XL) 50 mg 24 hr tablet Take 1 tablet by mouth once daily. furosemide (LASIX) 20 mg tablet Take 1 tablet by mouth once daily. Take one pill daily. Take an additional pill as needed to keep weight stable. clopidogrel (PLAVIX) 75 mg tablet Take 1 tablet by mouth once daily. isosorbide mononitrate ER (IMDUR) 30 mg 24 hr tablet Take 1 tablet by mouth once daily. Take 30 mg by mouth once daily, IN THE MORNING. lisinopril (ZESTRIL) 5 mg tablet Take 1 tablet by mouth once daily. spironolactone (ALDACTONE) 25 mg tablet Take 0.5 tablets by mouth once daily. [employer] ULTRA TEST test strip once daily. USE TO TEST BLOOD SUGAR DAILY nitroglycerin sublingual (NITROQUICK) 0.4 mg SL tablet Dissolve 1 tablet under the tongue every 5 minutes as needed for chest pain. Echinacea 400 mg cap Take by mouth. glimepiride (AMARYL) 4 mg tablet Take 1 tablet by mouth once daily. At noon gabapentin (NEURONTIN) 300 mg capsule Take 300 mg by mouth twice daily. tamsulosin ER (FLOMAX) 0.4 mg cp24 Take 0.4 mg by mouth daily at bedtime. MULTIVITAMIN-FERROUS FUMARATE-FOLIC ACID 18 MG-400 MCG TABLET Take 1 tablet by mouth once daily. CALCIUM CARBONATE (CORAL CALCIUM ORAL) Take by mouth. Cinnamon Bark 500 mg cap Take 1,000 tablets by mouth. cyanocobalamin (VITAMIN B-12) 1,000 mcg tab Take 1,000 mcg by mouth once daily. (Patient not taking: Reported on 03/27/2023) Denisse Brothers RN PHYSICAL EXAMINATION: There were no vitals taken for this visit. General: Well appearing, in no acute distress. Skin: No clubbing, no cyanosis. Eyes: Extra ocular movements intact Oropharynx: Teeth in good repair. Neck: No jugular venous distention, no carotid bruits, carotids have a normal upstroke, no palpable thyromegaly. Lungs: Clear to auscultation bilaterally, no wheezing or rhonchi. Heart: Regular rhythm, PMI not displaced, S1, S2 normal, no S3, no S4, no heaves, no rub and no murmur. Abdomen: Soft, nontender, bowel sounds normal, no palpable organomegaly, no bruits. Extremities: No peripheral edema . Grade 2/4 distal pulses bilaterally. Neuro: Oriented to person, place and time, alert, cooperative, gait coordinated. CARDIOVASCULAR MEDICINE TESTING: EKG today: Device check today: MULTI CHAMBER ICD EVALUATION PRESENTS FOR: Appt with Dr De La Rosa PRESENTING EGM: /AP/BiV paced UNDERLYING RHYTHM: SR ~66 BATTERY STATUS: Estimated time remaining to NICO is 5.7 yrs. COUNTERS SINCE: 07/04/22, last remote 01/25/23 ATRIAL ARRHYTHMIAS: There were 0 triggered episodes of atrial high rates since last remote. Last remote listed 81 triggered atrial high rates with no EGMs to review. Total time <1%. AC: Eliquis VENTRICULAR ARRHYTHMIAS: There have been no ventricular detections since the last evaluation. LEAD MEASUREMENTS: Capture and sensing are appropriate. The pacing outputs maintain safety margin. Review of the lead impedance trends are normal. IMPLANT SITE/ SYMPTOMS: The incision and pocket are well healed and without signs of erosion or infection. OTHER DIAGNOSTICS: RA pacing 75%. BiV pacing 99% PROGRAMMING CHANGES MADE TODAY: None FOLLOW UP: Continue Q 3 month remotes and routine in clinic evaluations. Janneth Gamble RN IMPRESSION: Mr. Taylor is a 82 year old male with history of ICM and PICKLING DRUM OPERATOR-D who presents for routine device follow-up. Device interrogation today shows stable lead parameters and no significant arrhythmias. I have mad no change to the device programming and plan to follow-up in 1 year. PLAN AND RECOMMENDATIONS: Follow-up in 1 year I personally interviewed, confirmed and edited the above information as obtained by others. CONTACT INFORMATION: Lyle De La Rosa MD documented in this encounter [facility] 03-05-2023 Miscellaneous Notes Called patient. He had lab work done with UA and UPCR/ UACR locally. Received results today and did not show protein loss. UACR was 25.7 and UPCR was 0.12. Savanah Olmos DO March 05, 2023, 3:57 PM documented in this encounter [facility] 03-01-2023 Note HNO ID: [id number] Author: Savanah Olmos DO Service: ? Author Type: Physician Type: Progress Notes Filed: 03/01/2023 3:39 PM Note Text: HPI: Mr. Taylor is a 82 year old male who presents for a follow-up of CKD stage III with history of DM, HTN, CAD, last office visit in 07/2022 with Rossy Wright with no changes made at the time. He reports no changes since last visit. For his bp, he is on lisinopril 5mg daily, metoprolol 50mg daily, spironolactone 12.5mg daily. He does not check his home blood pressures. He also takes lasix 20mg daily. He has no complaints today. States he feels well. He states he has a good appetite. He denies foamy urine. Labs done locally this week, creatinine was 1.67mg/dL. was 1.7mg/dL in 07/2022. (Baseline is around 1.5-1.8mg/dL) PAST MEDICAL HISTORY Diagnosis Date A-fib (HCC) CAD (coronary artery disease) s/p CABG 4v, pacemaker CKD (chronic kidney disease) stage 3, GFR 30-59 ml/min (HCC) Diabetes mellitus type 2 in obese (HCC) GERD (gastroesophageal reflux disease) Hyperlipidemia Hypertension PAST SURGICAL HISTORY Procedure Laterality Date CABG (4) VEIN GRAFTS AND ARTERIAL GRAFT(S) 2002? PACEMAKER 2014 PAST SURGICAL HISTORY OF knee Current Outpatient Medications Medication Sig apixaban (ELIQUIS) 2.5 mg tab(s) Take 1 tablet by mouth twice daily. atorvastatin (LIPITOR) 40 mg tablet Take 1 tablet by mouth daily at bedtime. CALCIUM CARBONATE (CORAL CALCIUM ORAL) Take by mouth. Cinnamon Bark 500 mg cap Take 1,000 tablets by mouth. clopidogrel (PLAVIX) 75 mg tablet Take 1 tablet by mouth once daily. cyanocobalamin (VITAMIN B-12) 1,000 mcg tab Take 1,000 mcg by mouth once daily. Echinacea 400 mg cap Take by mouth. furosemide (LASIX) 20 mg tablet Take 1 tablet by mouth once daily. Take one pill daily. Take an additional pill as needed to keep weight stable. gabapentin (NEURONTIN) 300 mg capsule Take 300 mg by mouth twice daily. glimepiride (AMARYL) 4 mg tablet Take 1 tablet by mouth once daily. At noon isosorbide mononitrate ER (IMDUR) 30 mg 24 hr tablet Take 1 tablet by mouth once daily. Take 30 mg by mouth once daily, IN THE MORNING. lisinopril (ZESTRIL) 5 mg tablet Take 1 tablet by mouth once daily. metoprolol succinate ER (TOPROL XL) 50 mg 24 hr tablet Take 1 tablet by mouth once daily. MULTIVITAMIN-FERROUS FUMARATE-FOLIC ACID 18 MG-400 MCG TABLET Take 1 tablet by mouth once daily. nitroglycerin sublingual (NITROQUICK) 0.4 mg SL tablet Dissolve 1 tablet under the tongue every 5 minutes as needed for chest pain. ONETOUCH ULTRA TEST test strip once daily. USE TO TEST BLOOD SUGAR DAILY spironolactone (ALDACTONE) 25 mg tablet Take 0.5 tablets by mouth once daily. tamsulosin ER (FLOMAX) 0.4 mg cp24 Take 0.4 mg by mouth daily at bedtime. No current facility-administered medications for this visit. ALLERGIES Allergen Reactions Iv Dye [Iodinated C* Other: See Comments May cause kidney problems Sulfa (Sulfonamide * Itching FAMILY HISTORY Problem Relation Age of Onset Coronary Artery Disease Mother Coronary Artery Disease Father Social history: reports that he has never smoked. He has never used smokeless tobacco. He reports that he does not drink alcohol and does not use drugs. ROS: no fever, weight loss over the last year, but stabilized, no chest pain, no SOB, no nausea, no vomiting, no abdominal pain, no diarrhea, no constipation, no appetite changes, no frothy urine, no gross hematuria, no urinary symptoms, no lightheadedness, no dizziness, no edema PHYSICAL EXAMINATION: BP 102/66 Pulse 70 Ht 185.4 cm (6' 1 ) Wt 120.2 kg (265 lb) BMI 34.96 kg/m? BP - standardized method Pulse 1 BP #1: 105/67 Pulse #1: 70 beats/min 2 BP #2 : 102/65 Pulse #2 : 70 beats/min 3 BP #3 : 100/64 Pulse #3 : 70 beats/min Average Average BP: 102/66 Average Pulse: 70 beats/min Orthostatic vitals Supine Sitting Standing Standing BP : (fall risk) Standing pulse : (fall risk) BP cuff location BP cuff location: Right upper arm BP cuff size BP cuff size: large adult Comments for BP values First BP (right) First BP (left) General appearance: well appearing, in no acute distress, alert Lungs: normal respiratory effort, clear to auscultation bilaterally Heart: S1S2, murmur present Abdomen: soft, NT, ND, normoactive BS Back: no CVA tenderness Extremities: no edema Neuro: alert and oriented x 3 Labs: Labs in care everywhere 02/26/23 WBC 6.9, Hbg 12.9, HCT 38.6, Platelet 177 Na 138, K 4.2, Chloride 105, Bicarb 27.9, BUN 12.6, Creatinine 1.67mg/dL, Calcium 8.6, Phos 2.5 Albumin 3.1 CBC: Lab Results Component Value Date WBC 9.63 07/04/2022 HB 13.3 07/04/2022 HCT 40.1 07/04/2022 PLT 195 07/04/2022 BMP: Lab Results Component Value Date NA 140 07/04/2022 K 4.6 07/04/2022 CHLOR 105 07/04/2022 GLUC 108 (H) 07/04/2022 CA 9.8 07/04/2022 RENAL FUNCTION Lab Results Compone (more content not included)... [facility] 03-01-2023 History of Presen t illness Narrative HPI: Mr. Taylor is a 82 year old male who presents for a follow-up of CKD stage III with history of DM, HTN, CAD, last office visit in 07/2022 with Rossy Wright with no changes made at the time. He reports no changes since last visit. For his bp, he is on lisinopril 5mg daily, metoprolol 50mg daily, spironolactone 12.5mg daily. He does not check his home blood pressures. He also takes lasix 20mg daily. He has no complaints today. States he feels well. He states he has a good appetite. He denies foamy urine. Labs done locally this week, creatinine was 1.67mg/dL. was 1.7mg/dL in 07/2022. (Baseline is around 1.5-1.8mg/dL) PAST MEDICAL HISTORY Diagnosis Date A-fib ([facility]) CAD (coronary artery disease) s/p CABG 4v, pacemaker CKD (chronic kidney disease) stage 3, GFR 30-59 ml/min ([facility]) Diabetes mellitus type 2 in obese ([facility]) GERD (gastroesophageal reflux disease) Hyperlipidemia Hypertension PAST SURGICAL HISTORY Procedure Laterality Date CABG (4) VEIN GRAFTS & ARTERIAL GRAFT(S) 2002? PACEMAKER 2013 PAST SURGICAL HISTORY OF knee Current Outpatient Medications Medication Sig apixaban (ELIQUIS) 2.5 mg tab(s) Take 1 tablet by mouth twice daily. atorvastatin (LIPITOR) 40 mg tablet Take 1 tablet by mouth daily at bedtime. CALCIUM CARBONATE (CORAL CALCIUM ORAL) Take by mouth. Cinnamon Bark 500 mg cap Take 1,000 tablets by mouth. clopidogrel (PLAVIX) 75 mg tablet Take 1 tablet by mouth once daily. cyanocobalamin (VITAMIN B-12) 1,000 mcg tab Take 1,000 mcg by mouth once daily. Echinacea 400 mg cap Take by mouth. furosemide (LASIX) 20 mg tablet Take 1 tablet by mouth once daily. Take one pill daily. Take an additional pill as needed to keep weight stable. gabapentin (NEURONTIN) 300 mg capsule Take 300 mg by mouth twice daily. glimepiride (AMARYL) 4 mg tablet Take 1 tablet by mouth once daily. At noon isosorbide mononitrate ER (IMDUR) 30 mg 24 hr tablet Take 1 tablet by mouth once daily. Take 30 mg by mouth once daily, IN THE MORNING. lisinopril (ZESTRIL) 5 mg tablet Take 1 tablet by mouth once daily. metoprolol succinate ER (TOPROL XL) 50 mg 24 hr tablet Take 1 tablet by mouth once daily. MULTIVITAMIN-FERROUS FUMARATE-FOLIC ACID 18 MG-400 MCG TABLET Take 1 tablet by mouth once daily. nitroglycerin sublingual (NITROQUICK) 0.4 mg SL tablet Dissolve 1 tablet under the tongue every 5 minutes as needed for chest pain. [employer] ULTRA TEST test strip once daily. USE TO TEST BLOOD SUGAR DAILY spironolactone (ALDACTONE) 25 mg tablet Take 0.5 tablets by mouth once daily. tamsulosin ER (FLOMAX) 0.4 mg cp24 Take 0.4 mg by mouth daily at bedtime. No current facility-administered medications for this visit. ALLERGIES Allergen Reactions Iv Dye [Iodinated C* Other: See Comments May cause kidney problems Sulfa (Sulfonamide * Itching FAMILY HISTORY Problem Relation Age of Onset Coronary Artery Disease Mother Coronary Artery Disease Father Social history: reports that he has never smoked. He has never used smokeless tobacco. He reports that he does not drink alcohol and does not use drugs. ROS: no fever, weight loss over the last year, but stabilized, no chest pain, no SOB, no nausea, no vomiting, no abdominal pain, no diarrhea, no constipation, no appetite changes, no frothy urine, no gross hematuria, no urinary symptoms, no lightheadedness, no dizziness, no edema PHYSICAL EXAMINATION: BP 102/66 Pulse 70 Ht 185.4 cm (6' 1 ) Wt 120.2 kg (265 lb) BMI 34.96 kg/m BP - standardized method Pulse 1 BP #1: 105/67 Pulse #1: 70 beats/min 2 BP #2 : 102/65 Pulse #2 : 70 beats/min 3 BP #3 : 100/64 Pulse #3 : 70 beats/min Average Average BP: 102/66 Average Pulse: 70 beats/min Orthostatic vitals Supine Sitting Standing Standing BP : (fall risk) Standing pulse : (fall risk) BP cuff location BP cuff location: Right upper arm BP cuff size BP cuff size: large adult Comments for BP values First BP (right) First BP (left) General appearance: well appearing, in no acute distress, alert Lungs: normal respiratory effort, clear to auscultation bilaterally Heart: S1S2, murmur present Abdomen: soft, NT, ND, normoactive BS Back: no CVA tenderness Extremities: no edema Neuro: alert and oriented x 3 Labs: Labs in care everywhere 02/26/23 WBC 6.9, Hbg 12.9, HCT 38.6, Platelet 177 Na 138, K 4.2, Chloride 105, Bicarb 27.9, BUN 12.6, Creatinine 1.67mg/dL, Calcium 8.6, Phos 2.5 Albumin 3.1 CBC: Lab Results Component Value Date WBC 9.63 07/04/2022 HB 13.3 07/04/2022 HCT 40.1 07/04/2022 PLT 195 07/04/2022 BMP: Lab Results Component Value Date NA 140 07/04/2022 K 4.6 07/04/2022 CHLOR 105 07/04/2022 GLUC 108 (H) 07/04/2022 CA 9.8 07/04/2022 RENAL FUNCTION Lab Results Component Value Date BUN 25 (H) 07/04/2022 BUN 28 (H) 10/04/2021 BUN 28 (H) 10/12/2020 BUN 28 (H) 10/12/2020 CREAT 1.71 (H) 07/04/2022 CREAT 1.62 (H) 10/04/2021 CREAT 1.58 (H) 10/12/2020 CREAT 1.57 (H) 10/12/2020 EGFRAA 51 10/12/2020 EGFRAA 52 10/12/2020 EGFRAA 51 09/03/2018 EGFROTH 40 (L) 07/04/2022 EGFROTH 43 (L) 10/04/2021 EGFROTH 43 10/12/2020 EGFROTH 43 10/12/2020 ACID/BASE Lab Results Component Value Date CO2 21 (L) 07/04/2022 ALB 3.8 (L) 07/04/2022 ANION 14 07/04/2022 BONE/MINERAL METABOLISM Lab Results Component Value Date CA 9.8 07/04/2022 P 3.5 07/04/2022 VITD25 33.1 07/04/2022 PTH 38 07/04/2022 URINE: Component Latest Ref Rng & Units 07/04/2022 Color Yellow Light Yellow Clarity Clear Clear Glucose, Urine Trace, Negative Negative Bilirubin, Urine Negative Negative Ketones, Urine Trace, Negative Negative Specific [place], Ur 1.005 - 1.030 1.016 Hemoglobin/Blood,Ur Negative, Trace Negative pH, Urine 5.0 - 8.0 5.5 Protein, Urine Trace, Negative Negative Urobilinogen Negative Negative Nitrites Negative Negative Leukest Negative, 25 Genoveva/uL Negative WBC, Urine 0-5 /HPF 0-5 /HPF RBC, Urine 0-3 /HPF 0-3 /HPF Epithelial Cells /HPF Few Hyaline Cast 0 /LPF >10 /LPF (A) Lab Results Component Value Date PCRAT 0.04 07/04/2022 UALBCR Not calculated 09/03/2018 Hepatitis B Status: Lab Results Component Value Date HEPSABQ Negative 12/05/2016 ASSESSMENT/PLAN: Mr. Taylor is a 82 year old male who presents for a follow-up of CKD stage III with history of DM, HTN, CAD 1) CKD stage IIIb with stable kidney function, - Discussed avoiding nephrotoxins such as NSAIDs and review with nephrology if ordered tests with IV iodinated contrast dye. (Ie okay to do with holding his diuretics) 2) Hypertension: controlled, on lisinopril 5mg daily, metoprolol 50mg daily, spironolactone 12.5mg daily and lasix 20mg daily 3) Ca/Phos: okay 4.) PTH: okay 5) Heme: Hgb is at goal for CKD 6)hypoalbuminemia: noted his serum albumin is 3.1. will check UA and albumin/cr ratio, protein/cr ratio Follow up in 6 months with Rossy Wright, yamilaer prn. Savanah Olmos DO documented in this encounter [facility] 03-01-2023 Instructions Savanah Olmos DO - 03/01/2023 3:07 PM EDT Your kidney function level was stable I did see your albumin level was low so I want you to do an urine test for me. Please let me know when you have the test done so I can look out for the results. Avoid all NSAIDs (over the counter ones include ibuprofen, naproxen, alleve, motrin and advil.) Avoid IV iodinated contrast if able to, please call me at [phone] if you are ordered a test requiring iodinated contrast Please see Rossy Wright back in 6 months with labs prior to visit I did give you two order forms for lab work - one to do now and one prior to your visit with Rossy documented in this encounter [facility] 02-25-2023 Miscellaneous Notes The requested document has been faxed to [phone]. Received a fax confirmation of OK on 02/25/23. I called and spoke with Micheal. I informed him of the below message from Rossy Wright. Micheal agreed with plan as stated below. Ifeanyi Gamble of [facility] is calling Rossy Wright APRN.[employer] today to request lab orders be faxed to [facility] at [phone]. They need this shane because they have an office visit Saturday. They want to go to the lab tomorrow if possible. Please call Alma Rosa when orders are faxed. They will fax results to [facility]. No chief complaint on file. Patient has been identified by name and birthdate. Duration of symptoms: Person calling: spouse: Alma Rosa Call patient at: Home [phone] (home) [phone] (cell) Was an appointment scheduled: Closing statement: Beryl Anderson documented in this encounter [facility] 12-26-2022 Miscellaneous Notes Request from pharmacy for refills as follows: Physician - Lakesha Sanchez MD Last ordered date 10-04-2021 Requested Prescriptions Pending Prescriptions Disp Refills atorvastatin (LIPITOR) 40 mg tablet 90 tablet 4 Sig: Take 1 tablet by mouth daily at bedtime. metoprolol succinate ER (TOPROL XL) 50 mg 24 hr tablet 90 tablet 4 Sig: Take 1 tablet by mouth once daily. furosemide (LASIX) 20 mg tablet 105 tablet 4 Sig: Take 1 tablet by mouth once daily. Take one pill daily. Take an additional pill as needed to keep weight stable. clopidogrel (PLAVIX) 75 mg tablet 90 tablet 3 Sig: Take 1 tablet by mouth once daily. isosorbide mononitrate ER (IMDUR) 30 mg 24 hr tablet 90 tablet 4 Sig: Take 1 tablet by mouth once daily. Take 30 mg by mouth once daily, IN THE MORNING. lisinopril (ZESTRIL) 5 mg tablet 90 tablet 4 Sig: Take 1 tablet by mouth once daily. spironolactone (ALDACTONE) 25 mg tablet 45 tablet 4 Sig: Take 0.5 tablets by mouth once daily. Last visit with this provider 07-04-2022 Next appointment in this department one year follow up Andre Sahni documented in this encounter [facility] 08-13-2022 History of Presen t illness Narrative Pt is an 82 yo male here for follow up for CKD stage 3-direct cause unknown. He was last seen 01/2022. He has a hx of HTN, DM and CAD s/p PPM 2013, CHF----no proteinuria noted. Had new PPM placed 10/18/2021. Baseline Scr is ~ 1.5-1.8. Has had rectal bleeding over the last 6 months. He had recent colonoscopy. Had admit ~ 3/5-diarrhea Then had hypoglycemia admit. + norovirus. He is now feeling better. reports some confusion. He is not on Eliquis as of now. PAST MEDICAL HISTORY Diagnosis Date A-fib (HCC) CAD (coronary artery disease) s/p CABG 4v, pacemaker CKD (chronic kidney disease) stage 3, GFR 30-59 ml/min (HCC) Diabetes mellitus type 2 in obese (HCC) GERD (gastroesophageal reflux disease) Hyperlipidemia Hypertension General: Negative for weight loss, night sweats, fever, and fatigue Head/Neck: Negative for metallic or bitter taste Cardiac: Negative for syncope, palpitations, lightheadedness, dizziness, and chest pain or pressure Vascular: Negative for edema Pulmonary: Positive for cough; Negative for dyspnea GastroIntestinal: Positive for diarrhea; Negative for nausea, loss of appetite, emesis, constipation, and abdominal pain Genito-Urinary: Negative for pink or red urine, pain with urination, groin pain, flank pain, and decreased urine Hematology: Negative for easy bruising Other: Negative for daytime somnolence Creatinine Date Value Ref Range Status 07/04/2022 1.71 (H) 0.73 - 1.22 mg/dL Final 10/04/2021 1.62 (H) 0.73 - 1.22 mg/dL Final 10/12/2020 1.58 (H) 0.73 - 1.22 mg/dL Final 10/12/2020 1.57 (H) 0.73 - 1.22 mg/dL Final Potassium Date Value Ref Range Status 07/04/2022 4.6 3.7 - 5.1 mmol/L Final 10/04/2021 4.9 3.7 - 5.1 mmol/L Final 10/12/2020 5.0 3.7 - 5.1 mmol/L Final 10/12/2020 5.0 3.7 - 5.1 mmol/L Final Outside labs 07/23/2022 Hgb 11.5 K 3.8 CO2 22 Na 140 Scr 1.7 Ca 7.9 A1C 6.2 Exam General: NAD, alert Skin: Color, texture and turgor normal. No rashes or lesions Oropharynx: Lips, mucosa and throat normal Neck: No carotid bruits, adenopathy. Supple. No JVD Lungs: CTA bilaterally Heart: RRR without murmur or rub Abdomen: Soft, nontender. BS X 4, No organomegaly. No bruit Extremities: No edema, no asterixis BP - standardized method Pulse 1 BP #1: 97/63 Pulse #1: 70 beats/min 2 BP #2 : 94/60 Pulse #2 : 71 beats/min 3 BP #3 : 81/53 Pulse #3 : 70 beats/min Average Average BP: 91/58 Average Pulse: 70 beats/min Orthostatic vitals Supine Sitting Standing Standing BP : (unable to obtain due to physical limitations) Standing pulse : (unable to obtain due to physical limitations) BP cuff location BP cuff location: Right upper arm BP cuff size BP cuff size: large adult Comments for BP values Comments for BP values: (Patient states no dizziness, lightheadedness.) First BP (right) First BP (left) Impression/plan CKD stage 3-nonproteinuric, in the setting of HTN, DM and CAD. His baseline Scr is 1.5-1.8-stable with recent admits. Had been 2.1 but returned to baseline. He is not using NSAIDs. Reviewed egfr. HTN-well controlled, volume stable. Reviewed low Na diet. Heme-mild anemia following rectal bleeding. Follow labs MBD-Ca, PO4, PTH and Vit D stable Hyperlipidemia-stable on statin Plan No changes Labs and follow up in 6 months Rossy Wright APRN.CNP documented in this encounter [facility] 08-03-2022 Miscellaneous Notes Lab results received and placed in provider's mailbox for review. Esther Quach MA Called and spoke with [facility] staff. Requested they fax lab results to our office. Will update once labs have been received. Esther Quach MA Patient spouse is calling Rossy Wright APRN.CNP today to request the office to call [facility] to receive the labs that were completed while patient was inpatient in the hospital in early July. She request Rossy Wright to review those labs and see if they will suffice for the upcoming OV on 08/13 [facility]: [phone] [place] fax [phone] Patient has been identified by name and birthdate. Person calling: spouse: Call patient at: at home [phone] (home) Was an appointment scheduled: No Closing statement: Results or non-symptom based questions: Thank you for calling [facility], your call will be returned within the next business day. Uyen Andino Ma documented in this encounter [facility] 07-04-2022 History of Presen t illness Narrative Images from the original note were not included. 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 Taylor is a 81 year old male who presents today for a cardiovascular medicine follow-up visit for the abovementioned. 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 In the ER Eliquis was discontinued and he continues to take Plavix. Did not result in hemodynamic instability. Did not require blood transfusions. No further bleeding since February. Now on clopidogrel only. Hb today is at baseline and within normal 13.3 Scheduled for diagnostic colonoscopy on July 18 in [place]. Otherwise he does not have any complaints. reporting new onset short term memory loss. He is not active. Performs his basic activities of daily living. He denies chest pain, shortness of breath, orthopnea, cough, edema, palpitations, PND, lightheadedness or syncope. PAST MEDICAL HISTORY Diagnosis Date A-fib ([facility]) CAD (coronary artery disease) s/p CABG 4v, pacemaker CKD (chronic kidney disease) stage 3, GFR 30-59 ml/min ([facility]) Diabetes mellitus type 2 in obese ([facility]) GERD (gastroesophageal reflux disease) Hyperlipidemia Hypertension PAST SURGICAL HISTORY Procedure Laterality Date CABG (4) VEIN GRAFTS & ARTERIAL GRAFT(S) 2002? PACEMAKER 2013 PAST SURGICAL HISTORY OF knee SOCIAL HISTORY Social History Tobacco Use Smoking status: Never Smokeless tobacco: Never Vaping Use Vaping Use: Never used Substance Use Topics Alcohol use: No Drug use: No FAMILY HISTORY Problem Relation Age of Onset Coronary Artery Disease Mother Coronary Artery Disease Father ALLERGIES: ALLERGIES Allergen Reactions Iv Dye [Iodinated C* Other: See Comments May cause kidney problems Sulfa (Sulfonamide * Itching MEDICATIONS: [employer] ULTRA TEST test strip once daily. USE TO TEST BLOOD SUGAR DAILY clopidogrel (PLAVIX) 75 mg tablet Take 1 tablet by mouth once daily. atorvastatin (LIPITOR) 40 mg tablet Take 1 tablet by mouth daily at bedtime. furosemide (LASIX) 20 mg tablet Take 1 tablet by mouth once daily. Take one pill daily. Take an additional pill as needed to keep weight stable. isosorbide mononitrate ER (IMDUR) 30 mg 24 hr tablet Take 1 tablet by mouth once daily. Take 30 mg by mouth once daily, IN THE MORNING. lisinopril (ZESTRIL, PRINIVIL) 5 mg tablet Take 1 tablet by mouth once daily. metoprolol succinate ER (TOPROL XL) 50 mg 24 hr tablet Take 1 tablet by mouth once daily. spironolactone (ALDACTONE) 25 mg tablet Take 0.5 tablets by mouth once daily. nitroglycerin sublingual (NITROQUICK) 0.4 mg SL tablet Dissolve 1 tablet under the tongue every 5 minutes as needed for chest pain. glimepiride (AMARYL) 4 mg tablet Take 1 tablet by mouth once daily. At noon gabapentin (NEURONTIN) 300 mg capsule Take 300 mg by mouth twice daily. tamsulosin ER (FLOMAX) 0.4 mg cp24 Take 0.4 mg by mouth daily at bedtime. MULTIVITAMIN-FERROUS FUMARATE-FOLIC ACID 18 MG-400 MCG TABLET Take 1 tablet by mouth once daily. CALCIUM CARBONATE (CORAL CALCIUM ORAL) Take by mouth. Cinnamon Bark 500 mg cap Take 1,000 tablets by mouth. apixaban (ELIQUIS) 2.5 mg tab(s) Take 1 tablet by mouth twice daily. (Patient not taking: No sig reported) Echinacea 400 mg cap Take by mouth. (Patient not taking: Reported on 07/04/2022) cyanocobalamin (VITAMIN B-12) 1,000 mcg tab Take 1,000 mcg by mouth once daily. (Patient not taking: Reported on 07/04/2022) REVIEW OF SYSTEMS: GENERAL: Negative for: Weight loss or gain, Fever or Chills, Weakness and Sleep difficulties. HEENT: Negative for: Headache, Impaired Vision, Glasses, Hearing Impairment, Ringing in Ears, Nosebleeds, Poor dental care, Bleeding Gums, Dentures NECK: Negative for: Swelling, Pain, Stiffness RESPIRATORY: Negative for: Cough, Blood in Sputum, Shortness of breath, Wheezing, Apnea GASTROINTESTINAL: Negative for: Trouble swallowing, Heartburn, Change in bowel habits, Blood in stool, Dark black stools MUSCULOSKELETAL: Negative for: Muscle or joint pain, Stiffness , Joint swelling NEUROLOGIC/PSYCHIATRIC: Negative for: Weakness, Paralysis, Numbness, Tingling, Tremor, Nervousness, Depressed mood, Memory loss SKIN: Negative for: Rashes, Itching HEMATOLOGICAL/LYMPHATIC: Negative for: Easy bruising , Easy bleeding ENDOCRINE: Negative for: Heat or cold intolerance, Excessive sweating, Frequent urination, Frequent thirst PHYSICAL EXAMINATION: BP 94/57 Pulse 72 Wt 118.8 kg (262 lb) SpO2 95% BMI 34.57 kg/m General: Well appearing, in no acute distress. Skin: ulcerated nose lesion Eyes: Extra ocular movements intact Neck: No jugular venous distention Lungs: Clear to auscultation bilaterally, no wheezing or rhonchi. Heart: Regular rhythm, S1, S2 normal. Systolic ascendo decrescendo murmur at the right sternal border Extremities: No peripheral edema . Grade 2/4 distal pulses bilaterally. Neuro: Oriented to person, place and time, alert, cooperative CARDIOVASCULAR MEDICINE TESTING: Electrocardiogram: A-paced and V-paced Laboratory Testing: in process Last ECHO Result Conclusion ECHO Collected: 10/04/2021 11:02 AM (Final result) Impression: CONCLUSIONS: - Exam indication: Ischemic cardiomyopathy - The left ventricle is normal in size. Left ventricular systolic function is mildly decreased. EF = 41 5% (2D biplane) - The right ventricle is normal in size. Right ventricular systolic function is low normal. - Aortic sclerosis without stenosis. - Exam was compared with the prior echocardiographic exam performed on 09/11/17. Similar findings. * * * Final * * * Last EKG Result Conclusion ECG COMPLETE Collected: 07/04/2022 10:11 AM (Preliminary result) Impression: AV DUAL-PACED RHYTHM ABNORMAL ECG I have personally reviewed the Electrocardiogram. IMPRESSION: Mr. Taylor is a 81 year old male with a stable obstructive coronary artery disease without angina and ischemic cardiomyopathy status post coronary artery bypass graft and biventricular pacemaker placement. On clopidogrel and low dose Apixaban for atrial fibrillation; complicated by bright red blood per rectum in February, awaiting diagnostic colonoscopy. PLAN AND RECOMMENDATIONS: Stable obstructive coronary artery disease without angina, ischemic cardiomyopathy, stable reduced ejection fraction, coronary artery bypass graft, biventricular pacemaker No symptoms of decompensated heart failure and no overload on physical examination Continue current guideline directed medical therapy Pacemaker checks as instructed Continue clopidogrel Atrial fibrillation Stay off Apixaban until colonoscopy is done. Reach back with colonoscopy results to re assess initiation of Apixaban Aortic valve systolic murmur, non severe Nose ulcerated lesion suspicious Follow up with dermatology Disposition Follow up with [facility] in [address] Sanchez in 12 months Emerald Lomeli MD PGY 2 Internal Medicine CONTACT INFORMATION: [facility] STAFF PHYSICIAN NOTE OF PERSONAL INVOLVEMENT IN CARE IMPRESSION: Patient is a 82 year old male With the above medical problems. PLAN: As above I have reviewed the documentation obtained and documented by the Resident and I have personally performed a face to face assessment of the patient and have personally participated in the jaramillo components of the visit which includes medical decision making.. I have discussed the case and management of the patient's care. STAFF PHYSICIAN: Lakesha Sanchez MD DATE OF SERVICE: July 23, 2022 (for service July 04) TIME OF SERVICE: 5:16 AM documented in this encounter [facility] 07-03-2022 Miscellaneous Notes Records received from [facility] by fax. Records uploaded to [employer] and [employer]. Patient has a future appointment on 07/04/22. Date of last OV 10/04/21. Herb Sosa July 03, 2022 9:40 AM documented in this encounter [facility] 05-24-2022 Miscellaneous Notes Images from the original note were not included. FAXED COMPLETED/SIGNED FORM - [facility] May 23, 2022 Patient Contact Number: [phone] (home) [phone] (cell) Physician: Lakesha Sanchez MD Last Office Visit: 03/13/2022 Last Visit this dept: 10/04/2021 Next visit - 07/04/2022 Reason For Call: Received request from [facility] [facility] for patient to hold plavix for 7 days and for surgical clearance - colonoscopy. Place in physician's office for review and comment. Andre Torres, Admin III Clinical Cardiology J2-4 documented in this encounter [facility] 03-23-2022 Miscellaneous Notes Documentation scanned into EP outside records database. documented in this encounter [facility] 03-16-2022 Miscellaneous Notes Returned call, spoke with . Answered all questions at this time. Added pt on for device check in June while he is here for other appointments. Patients Alma Rosa segal. Has questions/concerns about device and wants to know if pt should send remote transmission. Can be reached at documented in this encounter [facility] 03-13-2022 Miscellaneous Notes See follow up message to Dr Sanchez's office. Will review with Dr Holder when he is back in the office. Heidi Taylor RN March 12, 2022 Patient Contact Number: Spouse: [phone] (home) Dtr Saadia [phone](cell) Patient last seen within the last year: Yes Reason For Call: Mrs Taylor called to inform office that patient is in [facility]. He went to ER due to excessive bleeding from the rectum. There are concerns that patient is over anticoagulated. He is on both Plavix and Eliquis. Also concerns that bleeding may be due to hemorrhoids. Physician:Bret Holder MD documented in this encounter [facility] 01-31-2022 Miscellaneous Notes Images from the original note were not included. The below labs have been filled out and placed in the outgoing mail as of 01/31/22. Ifeanyi Wright APRN.CONTAINER SHOP WELDER You Please send lab req for renal panel, CBC, PTH and Vit D 25 Thanks Patient is calling in asking for labs to be mailed over to them. He will get them done some where locally. documented in this encounter [facility] 01-12-2022 Miscellaneous Notes Images from the original note were not included. Email sent to Desk F14 documented in this encounter [facility] 01-09-2022 Miscellaneous Notes Attempted to reach patient. Left message on patient home VM. Heidi Taylor RN January 08, 2022 Patient Contact Number: [phone] (home) [phone] (cell) Physician: Bret Calix MD Last Office Visit: 01/03/2022 Last Visit this dept: 10/04/2021 Reason For Call: Patient's calling to report the anticoagulation therapy was changed from clopidogrel to eliquis and would like the pharmacy notified accordingly. also report that in the night when patient is sleeping he is very active with dreams/nightmares and causes concerning remote check reports on his Pacemaker/Defib that had a recent generator change. Should patient be referred to the [facility] for evaluation? Andre Torres, Admin III Clinical Cardiology J2-4 documented in this encounter [facility] 12-29-2021 Miscellaneous Notes Request from pharmacy for refills as follows: Requested Prescriptions Pending Prescriptions Disp Refills clopidogrel (PLAVIX) 75 mg tablet 90 tablet 4 Sig: Take 1 tablet by mouth once daily. Last encounter with this provider 10/04/2021 Last office visit in this department was 10/04/2021 Next appointment in this department Visit date not found Andre Sahni documented in this encounter [facility] 12-19-2021 Miscellaneous Notes Mr Taylor was called today about an in-clinic check of his poor RV sensing. He will be coming into device clinic 12/21/2021 at 1pm. documented in this encounter [facility] 11-01-2021 Miscellaneous Notes Post Implant follow up call: Date: 11/01/2021 Name: Junior Taylor Is your incision: Red: No Open: No Swollen: No Draining: No Steri Strips: fell off If the device is an ICD, have you received any shocks: No Have you received your temporary or permanent ID card: No Do you have your f/u appointment: Yes Appointments for Next 60 Days Date Time Provider Location Dept Phone 11/30/2021 2:15 PM [facility] [phone] Any scheduling issues:No Questions moving forward: No Christiana Neumann documented in this encounter [facility] 10-20-2021 Miscellaneous Notes Patient's calling with questions about how to use cellphone like device they received in the mail with patients ICD. Caller conferenced [place] [facility] [place] [place] page legal secretary receptionist provider for Dr. Bret Holder. documented in this encounter [facility] 10-17-2021 Nurse Note THE FOLLOWING WAS EVALUATED Motivation To Learn: Eager Family/Significant Other Support: Unable to assess - Family not present Cognitive Ability: Alert and oriented Patient Learns Best By: Individual Instruction The Following Influencing Factors Were Barriers To This Education Session: None The Following Physical Limitations Were Barriers To This Education Session: None Instruction Provided To: Patient Procedure: ICD Generator Change Pre-procedure information reviewed: Patient ID verified Procedure verified Physician verified Explanation of procedure Sedation level during procedure MD medication instructions from EP lab request n/a Travel instructions/restrictions Scheduling information Possible same day discharge versus overnight hospital stay Check out time Family waiting area Physician contact with family after procedure Post Procedure Expectations reviewed: Inpatient hospital stay Post procedure antiarrhythmics and anticoagulation will be discussed with Physician, nurse practitioner or Physician assistant athletic trainer upon discharge Instructions for transmitting EKG to Monitoring Center 3 month follow up instructions Contact number for information and questions Patient Evaluation: Verbalizes understanding Follow Up Plan: Follow up as directed by . Supplemental Material Given: Written Material Patient education regarding radiation exposure. Instructed By Penelope Truong RN. In Department of CARDIOLOGY. documented in this encounter [facility] 10-04-2021 History of Presen t illness Narrative Images from the original note were not included. [facility] [place] Chema Mckeon Department of Cardiovascular Medicine SECTION OF CLINICAL CARDIOLOGY OUTPATIENT VISIT DATE October 04, 2021 OUTPATIENT VISIT TYPE ESTABLISHED PRIMARY CARE PHYSICIAN: Michel Alcazar MD ([facility]) [address] [place] [address] REFERRING PHYSICIAN: Lakesha Sanchez [address] [facility] [address] CHIEF COMPLAINT: Follow up for hx of myocardial infarction, coronary artery disease, status post coronary bypass grafting, ischemic cardiomyopathy, abnormal stress test, chronic systolic heart failure HISTORY OF PRESENT ILLNESS: Mr. Taylor is a 81 year old male who presents today for a cardiovascular medicine follow-up visit of his above problems. He notes no chest pain or shortness of breath. Blood pressure is under good control. He is tolerating medications well. His echocardiogram and EKG are stable. He is looking to get his EP device battery upgraded.. He denies chest pain, shortness of breath, orthopnea, cough, edema, palpitations, PND, lightheadedness or syncope. PAST CARDIAC HISTORY: As above PAST MEDICAL HISTORY Diagnosis Date CAD (coronary artery disease) s/p CABG 4v, pacemaker CKD (chronic kidney disease) stage 3, GFR 30-59 ml/min ([facility]) Diabetes mellitus type 2 in obese ([facility]) GERD (gastroesophageal reflux disease) Hyperlipidemia Hypertension PAST SURGICAL HISTORY Procedure Laterality Date CABG (4) VEIN GRAFTS & ARTERIAL GRAFT(S) 2002? PACEMAKER 2013 PAST SURGICAL HISTORY OF knee SOCIAL HISTORY Social History Tobacco Use Smoking status: Never Smoker Smokeless tobacco: Never Used Vaping Use Vaping Use: Never used Substance Use Topics Alcohol use: No Drug use: No FAMILY HISTORY Problem Relation Age of Onset Coronary Artery Disease Mother Coronary Artery Disease Father ALLERGIES: ALLERGIES Allergen Reactions Iv Dye [Iodinated C* Other: See Comments May cause kidney problems Sulfa (Sulfonamide * Itching MEDICATIONS: atorvastatin (LIPITOR) 40 mg tablet Take 1 tablet by mouth daily at bedtime. clopidogrel (PLAVIX) 75 mg tablet Take 1 tablet by mouth once daily. furosemide (LASIX) 20 mg tablet Take 1 tablet by mouth once daily. Take one pill daily. Take an additional pill as needed to keep weight stable. isosorbide mononitrate ER (IMDUR) 30 mg 24 hr tablet Take 1 tablet by mouth once daily. Take 30 mg by mouth once daily, IN THE MORNING. lisinopril (ZESTRIL, PRINIVIL) 5 mg tablet Take 1 tablet by mouth once daily. metoprolol succinate ER (TOPROL XL) 50 mg 24 hr tablet Take 1 tablet by mouth once daily. spironolactone (ALDACTONE) 25 mg tablet Take 0.5 tablets by mouth once daily. nitroglycerin sublingual (NITROQUICK) 0.4 mg SL tablet Dissolve 1 tablet under the tongue every 5 minutes as needed for chest pain. Echinacea 400 mg cap Take by mouth. glimepiride (AMARYL) 4 mg tablet Take 1 tablet by mouth once daily. At noon cyanocobalamin (VITAMIN B-12) 1,000 mcg tab Take 1,000 mcg by mouth once daily. gabapentin (NEURONTIN) 300 mg capsule Take 300 mg by mouth twice daily. aspirin, enteric coated (ASPIRIN, ENTERIC COATED) 81 mg EC tablet Take 81 mg by mouth twice daily. tamsulosin ER (FLOMAX) 0.4 mg cp24 Take 0.4 mg by mouth daily at bedtime. multivitamin/iron/folic acid(CENTRUM COMPLETE 18 MG-400 MCG TABLET) Take 1 tablet by mouth once daily. CALCIUM CARBONATE (CORAL CALCIUM ORAL) Take by mouth. Cinnamon Bark (CINNAMON) 500 mg cap Take 1,000 tablets by mouth. REVIEW OF SYSTEMS: No review of systems performed PHYSICAL EXAMINATION: BP 129/66 (BP Site: Left Arm) Pulse 68 Ht 185.4 cm (6' 1 ) Wt 123.4 kg (272 lb) SpO2 98% BMI 35.89 kg/m No physical examination performed CARDIOVASCULAR MEDICINE TESTING: Electrocardiogram: Paced rhythm Laboratory Testing: Normal CBC Echocardiogram: Ejection fraction 41% stable Last ECHO Result Conclusion ECHO Collected: 10/04/2021 11:02 AM (Final result) Impression: CONCLUSIONS: - Exam indication: Ischemic cardiomyopathy - The left ventricle is normal in size. Left ventricular systolic function is mildly decreased. EF = 41 5% (2D biplane) - The right ventricle is normal in size. Right ventricular systolic function is low normal. - Aortic sclerosis without stenosis. - Exam was compared with the prior echocardiographic exam performed on 09/11/17. Similar findings. * * * Final * * * Complete Results Last EKG Result Conclusion ECG COMPLETE Collected: 10/04/2021 12:43 PM (Preliminary result) Impression: ELECTRONIC ATRIAL PACEMAKER NONSPECIFIC INTRAVENTRICULAR BLOCK POSSIBLE LATERAL MYOCARDIAL INFARCTION , AGE UNDETERMINED INFERIOR MYOCARDIAL INFARCTION , AGE UNDETERMINED ABNORMAL ECG Complete Results I have personally reviewed the Electrocardiogram, Laboratory Testing and Echocardiogram. IMPRESSION: Mr. Taylor is a 81 year old male presents with coronary disease and ischemic cardiomyopathy status post bypass surgery with chronic systolic heart failure and history of abnormal stress test being managed medically. Also with stage III kidney disease. He has gained about 16 pounds. Echocardiography shows stable left ventricular dysfunction with no progression. PLAN AND RECOMMENDATIONS: 1. history of Coronary artery disease, ischemic cardiomyopathy, status post coronary bypass grafting, palpitations, chronic systolic heart failure, abnormal stress test, stage III kidney disease: Continue current medications. Return to see me in 1 year or earlier if recurrent problems. CONTACT INFORMATION: Lakesha Sanchez M.D., F.A.C.C. Staff Pmo Lead [facility] Desk J2-[address] [place] [address] Office [phone] extension [phone] Office Appointments: [phone] extension [phone] Medical Decision Making: Problems: Moderate: 2+ stable chronic illnesses Data: Unique test result(s) reviewed: 3+ Risk: Moderate: Drug management Medical Decision Making Level: 4 - Moderate documented in this encounter [facility] Evaluation note Diagnosis Cardiomyopathy, ischemic- Primary Other specified forms of chronic ischemic heart disease Chronic systolic congestive heart failure (HCC) Chronic systolic heart failure Coronary artery disease involving [place] coronary artery of [place] heart without angina pectoris Ischemic cardiomyopathy Other specified forms of chronic ischemic heart disease Chronic systolic CHF (congestive heart failure) (HCC) Chronic systolic heart failure PVC (premature ventricular contraction) Other premature beats [facility] Cardiomyopathy, ischemic- Primary Other specified forms of chronic ischemic heart disease [facility] Diagnosis Cardiomyopathy, ischemic- Primary Other specified forms of chronic ischemic heart disease Chronic systolic congestive heart failure (HCC) Chronic systolic heart failure Coronary artery disease involving [place] coronary artery of [place] heart without angina pectoris [facility] Diagnosis 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, ischemic Other specified forms of chronic ischemic heart disease PAF (paroxysmal atrial fibrillation) (HCC) Atrial fibrillation Chronic systolic heart failure (HCC) Chronic systolic heart failure Obesity, morbid (HCC) Morbid obesity documented in this encounter [facility] for referral (narrative)* Outpatient Procedure (Routine) - Pending Review Specialty Diagnoses / Procedures Referred By Contac t Referred To Contact [facility] [place] Diagnoses Cardiomyopathy, ischemic Procedures ECG COMPLETE ECG ROUTINE ECG W/LEAST 12 LDS W/I&R La eNna Yee APRN.CNP [address], [address] [place] [address] [facility] [address] [place] [address] Referral ID Status Reason Start Date Expiration Date Visits Requested Visits Authorized [id number] Pending Review Auto-Generat ed Referral 11/06/2021 11/06/2022 1 1 [facility] for referral (narrative)* Outpatient Procedure (Routine) - Authorized Specialty Diagnoses / Procedures Referred By Contac t Referred To Contact [facility] [place] Diagnoses Pacemaker Chronic systolic congestive heart failure (HCC) Procedures ECG COMPLETE ECG ROUTINE ECG W/LEAST 12 LDS W/I&R Bret Holder MD [address] [place] [address] [place] [id number] Referral ID Status Reason Start Date Expiration Date Visits Requested Visits Authorized [id number] Authorized Auto-Generat ed Referral 08/03/2022 08/03/2023 1 1 T [facility] for referral (narrative)* Outpatient Procedure (Routine) - Pending Review Specialty Diagnoses / Procedures Referred By Contac t Referred To Contact [facility] [place] Diagnoses Coronary artery disease involving [place] coronary artery of [place] heart without angina pectoris Procedures ECG COMPLETE ECG ROUTINE ECG W/LEAST 12 LDS W/I&R Lakesha Sanchez MD [address] [place] [address] [facility] [address] [place] [address] Referral ID Status Reason Start Date Expiration Date Visits Requested Visits Authorized [id number] Pending Review Auto-Generat ed Referral 10/15/2023 10/14/2024 1 1 * Transition of Care (Routine) - Ref Not Required Specialty Diagnoses / Procedures Referred By Contac t Referred To [facility] [place] Diagnoses Coronary artery disease involving [place] coronary artery of [place] heart without angina pectoris Procedures CARDIOVASCULAR MEDICINE OP FOLLOW UP APPT ORDER Lakesha Sanchez MD [address] [place] [address] [facility] [address] [place] [address] Referral ID Status Reason Start Date Expiration Date Visits Requested Visits Authorized [id number] Ref Not Required PCP Requested Referral 10/14/2024 1 1 * Transition of Care (Routine) - Ref Not Required Specialty Diagnoses / Procedures Referred By Contac t Referred To [facility] Diagnoses Coronary artery disease involving [place] coronary artery of [place] heart without angina pectoris Procedures CARDIOVASCULAR MEDICINE OP FOLLOW UP APPT ORDER Lakesha Sanchez MD [address] [place] [address] [facility] [address] [place] [address] Referral ID Status Reason Start Date Expiration Date Visits Requested Visits Authorized [id number] Ref Not Required PCP Requested Referral 07/16/2024 10/14/2024 1 1 * Outpatient Procedure (Routine) - Pending Review Specialty Diagnoses / Procedures Referred By Contac t Referred To Contact [facility] Diagnoses Coronary artery disease involving [place] coronary artery of [place] heart without angina pectoris Procedures ECG COMPLETE ECG ROUTINE ECG W/LEAST 12 LDS W/I&R Lakesha Sanchez MD [address] [place] [address] [facility] [place] [address] [place] [address] Referral ID Status Reason Start Date Expiration Date Visits Requested Visits Authorized [id number] Pending Review Auto-Generat ed Referral 10/15/2023 10/14/2024 [address] 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 Advance Directive(s) 10/06/2021 8:17 AM Reason for Referral Specialty Diagnoses / Procedures Referred By Keiko t Referred To Contact Procedures CARDIOVASCULAR MEDICINE OP FOLLOW UP APPT ORDER Lyle De La Rosa MD [address] [place] [address] Referral ID Status Reason Start Date Expiration Date Visits Requested Visits Authorized [id number] Ref Not Required PCP Requested Referral 03/27/2023 03/26/2024 1 1 Additional Source Comments (unrecognized sect ion and content) No Status Records FoundNo Status Records FoundNo Status Records Found INFORMATION SOURCE (unrecogn ized section and content) DATE CREATED AUTHOR 04/23/2020 [facility] DATE CREATED AUTHOR AUTHOR'S ORGANIZ ATION 07/27/2022 [facility] DATE CREATED AUTHOR AUTHOR'S ORGANIZ ATION 10/15/2023 [facility] Source Comments (unrecognize d section and content) In the event this informatio n is protected by the Federal Confidentiality of Alcohol and Drug Abuse Patient Records regulations: The Federal rules restrict any use of the information to criminally investigate or prosecute any alcohol or drug abuse patient.[facility] the event this information is protected by the Federal Confidentiality of Alcohol and Drug Abuse Patient Records regulations: The Federal rules restrict any use of the information to criminally investigate or prosecute any alcohol or drug abuse patient.[facility] the event this information is protected by the Federal Confidentiality of Alcohol and Drug Abuse Patient Records regulations: The Federal rules restrict any use of the information to criminally investigate or prosecute any alcohol or drug abuse patient.[facility] the event this information is protected by the Federal Confidentiality of Alcohol and Drug Abuse Patient Records regulations: The Federal rules restrict any use of the information to criminally investigate or prosecute any alcohol or drug abuse patient.[facility] the event this information is protected by the Federal Confidentiality of Alcohol and Drug Abuse Patient Records regulations: The Federal rules restrict any use of the information to criminally investigate or prosecute any alcohol or drug abuse patient.[facility] the event this information is protected by the Federal Confidentiality of Alcohol and Drug Abuse Patient Records regulations: The Federal rules restrict any use of the information to criminally investigate or prosecute any alcohol or drug abuse patient.[facility] the event this information is protected by the Federal Confidentiality of Alcohol and Drug Abuse Patient Records regulations: The Federal rules restrict any use of the information to criminally investigate or prosecute any alcohol or drug abuse patient.[facility] the event this information is protected by the Federal Confidentiality of Alcohol and Drug Abuse Patient Records regulations: The Federal rules restrict any use of the information to criminally investigate or prosecute any alcohol or drug abuse patient.[facility] the event this information is protected by the Federal Confidentiality of Alcohol and Drug Abuse Patient Records regulations: The Federal rules restrict any use of the information to criminally investigate or prosecute any alcohol or drug abuse patient.[facility] the event this information is protected by the Federal Confidentiality of Alcohol and Drug Abuse Patient Records regulations: The Federal rules restrict any use of the information to criminally investigate or prosecute any alcohol or drug abuse patient.[facility] the event this information is protected by the Federal Confidentiality of Alcohol and Drug Abuse Patient Records regulations: The Federal rules restrict any use of the information to criminally investigate or prosecute any alcohol or drug abuse patient.[facility] the event this information is protected by the Federal Confidentiality of Alcohol and Drug Abuse Patient Records regulations: The Federal rules restrict any use of the information to criminally investigate or prosecute any alcohol or drug abuse patient.[facility] HospitalIn the event this information is protected by the Federal Confidentiality of Alcohol and Drug Abuse Patient Records regulations: The Federal rules restrict any use of the information to criminally investigate or prosecute any alcohol or drug abuse patient.[facility] HospitalIn the event this information is protected by the Federal Confidentiality of Alcohol and Drug Abuse Patient Records regulations: The Federal rules restrict any use of the information to criminally investigate or prosecute any alcohol or drug abuse patient.[facility] HospitalIn the event this information is protected by the Federal Confidentiality of Alcohol and Drug Abuse Patient Records regulations: The Federal rules restrict any use of the information to criminally investigate or prosecute any alcohol or drug abuse patient.[facility] HospitalIn the event this information is protected by the Federal Confidentiality of Alcohol and Drug Abuse Patient Records regulations: The Federal rules restrict any use of the information to criminally investigate or prosecute any alcohol or drug abuse patient.[facility] HospitalIn the event this information is protected by the Federal Confidentiality of Alcohol and Drug Abuse Patient Records regulations: The Federal rules restrict any use of the information to criminally investigate or prosecute any alcohol or drug abuse patient.[facility] HospitalIn the event this information is protected by the Federal Confidentiality of Alcohol and Drug Abuse Patient Records regulations: The Federal rules restrict any use of the information to criminally investigate or prosecute any alcohol or drug abuse patient.[facility] HospitalIn the event this information is protected by the Federal Confidentiality of Alcohol and Drug Abuse Patient Records regulations: The Federal rules restrict any use of the information to criminally investigate or prosecute any alcohol or drug abuse patient.[facility] HospitalIn the event this information is protected by the Federal Confidentiality of Alcohol and Drug Abuse Patient Records regulations: The Federal rules restrict any use of the information to criminally investigate or prosecute any alcohol or drug abuse patient.[facility] HospitalIn the event this information is protected by the Federal Confidentiality of Alcohol and Drug Abuse Patient Records regulations: The Federal rules restrict any use of the information to criminally investigate or prosecute any alcohol or drug abuse patient.[facility] HospitalIn the event this information is protected by the Federal Confidentiality of Alcohol and Drug Abuse Patient Records regulations: The Federal rules restrict any use of the information to criminally investigate or prosecute any alcohol or drug abuse patient.[facility] HospitalIn the event this information is protected by the Federal Confidentiality of Alcohol and Drug Abuse Patient Records regulations: The Federal rules restrict any use of the information to criminally investigate or prosecute any alcohol or drug abuse patient.[facility] HospitalIn the event this information is protected by the Federal Confidentiality of Alcohol and Drug Abuse Patient Records regulations: The Federal rules restrict any use of the information to criminally investigate or prosecute any alcohol or drug abuse patient.[facility] HospitalIn the event this information is protected by the Federal Confidentiality of Alcohol and Drug Abuse Patient Records regulations: The Federal rules restrict any use of the information to criminally investigate or prosecute any alcohol or drug abuse patient.[facility] HospitalIn the event this information is protected by the Federal Confidentiality of Alcohol and Drug Abuse Patient Records regulations: The Federal rules restrict any use of the information to criminally investigate or prosecute any alcohol or drug abuse patient.[facility] HospitalIn the event this information is protected by the Federal Confidentiality of Alcohol and Drug Abuse Patient Records regulations: The Federal rules restrict any use of the information to criminally investigate or prosecute any alcohol or drug abuse patient.[facility] HospitalIn the event this information is protected by the Federal Confidentiality of Alcohol and Drug Abuse Patient Records regulations: The Federal rules restrict any use of the information to criminally investigate or prosecute any alcohol or drug abuse patient.[facility] HospitalIn the event this information is protected by the Federal Confidentiality of Alcohol and Drug Abuse Patient Records regulations: The Federal rules restrict any use of the information to criminally investigate or prosecute any alcohol or drug abuse patient.[facility] HospitalIn the event this information is protected by the Federal Confidentiality of Alcohol and Drug Abuse Patient Records regulations: The Federal rules restrict any use of the information to criminally investigate or prosecute any alcohol or drug abuse patient.[facility] HospitalIn the event this information is protected by the Federal Confidentiality of Alcohol and Drug Abuse Patient Records regulations: The Federal rules restrict any use of the information to criminally investigate or prosecute any alcohol or drug abuse patient.[facility] HospitalIn the event this information is protected by the Federal Confidentiality of Alcohol and Drug Abuse Patient Records regulations: The Federal rules restrict any use of the information to criminally investigate or prosecute any alcohol or drug abuse patient.[facility] HospitalIn the event this information is protected by the Federal Confidentiality of Alcohol and Drug Abuse Patient Records regulations: The Federal rules restrict any use of the information to criminally investigate or prosecute any alcohol or drug abuse patient.[facility] HospitalIn the event this information is protected by the Federal Confidentiality of Alcohol and Drug Abuse Patient Records regulations: The Federal rules restrict any use of the information to criminally investigate or prosecute any alcohol or drug abuse patient.[facility] HospitalIn the event this information is protected by the Federal Confidentiality of Alcohol and Drug Abuse Patient Records regulations: The Federal rules restrict any use of the information to criminally investigate or prosecute any alcohol or drug abuse patient.[facility] HospitalIn the event this information is protected by the Federal Confidentiality of Alcohol and Drug Abuse Patient Records regulations: The Federal rules restrict any use of the information to criminally investigate or prosecute any alcohol or drug abuse patient.[facility] HospitalIn the event this information is protected by the Federal Confidentiality of Alcohol and Drug Abuse Patient Records regulations: The Federal rules restrict any use of the information to criminally investigate or prosecute any alcohol or drug abuse patient.[facility] HospitalIn the event this information is protected by the Federal Confidentiality of Alcohol and Drug Abuse Patient Records regulations: The Federal rules restrict any use of the information to criminally investigate or prosecute any alcohol or drug abuse patient.[facility] HospitalIn the event this information is protected by the Federal Confidentiality of Alcohol and Drug Abuse Patient Records regulations: The Federal rules restrict any use of the information to criminally investigate or prosecute any alcohol or drug abuse patient.[facility] HospitalIn the event this information is protected by the Federal Confidentiality of Alcohol and Drug Abuse Patient Records regulations: The Federal rules restrict any use of the information to criminally investigate or prosecute any alcohol or drug abuse patient.[facility] HospitalIn the event this information is protected by the Federal Confidentiality of Alcohol and Drug Abuse Patient Records regulations: The Federal rules restrict any use of the information to criminally investigate or prosecute any alcohol or drug abuse patient.[facility] HospitalIn the event this information is protected by the Federal Confidentiality of Alcohol and Drug Abuse Patient Records regulations: The Federal rules restrict any use of the information to criminally investigate or prosecute any alcohol or drug abuse patient.[facility] HospitalIn the event this information is protected by the Federal Confidentiality of Alcohol and Drug Abuse Patient Records regulations: The Federal rules restrict any use of the information to criminally investigate or prosecute any alcohol or drug abuse patient.[facility] HospitalIn the event this information is protected by the Federal Confidentiality of Alcohol and Drug Abuse Patient Records regulations: The Federal rules restrict any use of the information to criminally investigate or prosecute any alcohol or drug abuse patient.[facility] HospitalIn the event this information is protected by the Federal Confidentiality of Alcohol and Drug Abuse Patient Records regulations: The Federal rules restrict any use of the information to criminally investigate or prosecute any alcohol or drug abuse patient.[facility] Care Teams (unrecognized sec tion and content) Finance Director Relationship Specialty Start Date End Date Michel Alcazar PCP - General Family Practice 04/22/17 Simon Souza [address] [phone] Cardiology 09/04/16 Lakesha Sanchez MD Primary Staff Physician Cardiology 08/05/18 Finance Director Relationship Specialty Start Date End Date Michel Alcazar PCP - General Family Practice 04/22/17 Simon Souza [id number] [place] [phone] Cardiology 09/04/16 Lakesha Sanchez MD Primary Staff Physician Cardiology 08/05/18 Finance Director Relationship Specialty Start Date End Date Michel Alcazar PCP - General Family Practice 04/22/17 [facility] [address] Cardiology 09/04/16 Lakesha Sanchez MD Primary Staff Physician Cardiology 08/05/18 Finance Director Relationship Specialty Start Date End Date Michel Alcazar PCP - General Family Practice 04/22/17 Sánchez Souza[address] [phone] Cardiology 09/04/16 Lakesha Sanchez MD Primary Staff Physician Cardiology 08/05/18 Finance Director Relationship Specialty Start Date End Date Michel Alcazar PCP - General Family Practice 04/22/17 Simon Souza [address] [phone] Cardiology 09/04/16 Lakesha Sanchez MD Primary Staff Physician Cardiology 08/05/18 Finance Director Relationship Specialty Start Date End Date Michel Alcazar PCP - General Family Practice 04/22/[address] [phone] Cardiology 09/04/16 Lakesha Sanchez MD Primary Staff Physician Cardiology 08/05/18 Finance Director Relationship Specialty Start Date End Date Michel Alcazra PCP - General Family Practice 04/22/[address] [phone] Cardiology 09/04/16 Lakesha Sanchez MD Primary Staff Physician Cardiology 08/05/18 Finance Director Relationship Specialty Start Date End Date Michel Alcazar PCP - General Family Practice 04/22/[address] [phone] Cardiology 09/04/16 Lakesha Sanchez MD Primary Staff Physician Cardiology 08/05/18 Finance Director Relationship Specialty Start Date End Date Michel Alcazar PCP - General Family Practice 04/22/[address] [phone] Cardiology 09/04/16 Lakesha Sanchez MD Primary Staff Physician Cardiology 08/05/18 Finance Director Relationship Specialty Start Date End Date Michel Alcazar PCP - General Family Practice 04/22/17 [facility] [address] Cardiology 09/04/16 Lakesha Sanchez MD Primary Staff Physician Cardiology 08/05/18 Finance Director Relationship Specialty Start Date End Date Michel Alcazar PCP - General Family Practice 04/22/17 [facility] [address] Cardiology 09/04/16 Lakesha Sanchez MD Primary Staff Physician Cardiology 08/05/18 Finance Director Relationship Specialty Start Date End Date Michel Alcazar PCP - General Family Medicine 04/22/17 [facility] [address] [phone] Cardiology 09/04/16 Lakesha Sanchez MD Primary Staff Physician Cardiology 08/05/18 Finance Director Relationship Specialty Start Date End Date Michel Alcazar PCP - General Family Medicine 04/22/17 [facility] [address] [place] [address] Cardiology 09/04/16 Lakesha Sanchez MD Primary Staff Physician Cardiology 08/05/18 Finance Director Relationship Specialty Start Date End Date Michel Alcazar PCP - General Family Medicine 04/22/17 [facility] [address] [place] [address] Cardiology 09/04/16 Lakesha Sanchez MD Primary Staff Physician Cardiology 08/05/18 Finance Director Relationship Specialty Start Date End Date Michel Alcazar [address] [phone] PCP - General Family Medicine 04/22/17 [facility] [address] [place] [address] Cardiology 09/04/16 [place] [address] [place] [address] Primary Staff Physician Cardiology 08/05/18 Finance Director Relationship Specialty Start Date End Date Michel Alcazar [address] [place] [address] PCP - General Family Medicine 04/22/17 [facility] [address] [phone] Cardiology 09/04/16 Lakesha Sanchez MD [address] [place] [phone] Primary Staff Physician Cardiology 08/05/18 Finance Director Relationship Specialty Start Date End Date Ottoniel Michel Chandler [id number] [place] [phone] PCP - General Family Medicine 04/22/[address] [phone] Cardiology 09/04/16 Lakesha Sanchez MD [address] [place] [address], [place] [address] Primary Staff Physician Cardiology 08/05/18 Finance Director Relationship Specialty Start Date End Date Ottoniel Michel Chandler [address] [phone] PCP - General Family Medicine 04/22/17 [facility] [address] [place] [address] Cardiology 09/04/16 Lakesha Sanchez MD [id number] [place] [address], [place] [address] Primary Staff Physician Cardiology 08/05/18 Finance Director Relationship Specialty Start Date End Date FrancineMichel barajas Ramesh [address] [phone] PCP - General Family Medicine 04/22/17 [facility] Harida[address] [address] Cardiology 09/04/16 Lakesha Sanchez MD [address] [place] [phone] Primary Staff Physician Cardiology 08/05/18 Finance Director Relationship Specialty Start Date End Date Michel Alcazar [address] [place] [phone] PCP - General Family Medicine 04/22/17 [facility] Wolfcierra Lentz [address] [place] [phone] Cardiology 09/04/16 Lakesha Sanchez MD [address] [place] [phone] Primary Staff Physician Cardiology 08/05/18 Finance Director Relationship Specialty Start Date End Date Michel Alcazar [address] [place] [phone] PCP - General Family Medicine 04/22/17 Simon Souza [address] [place] [phone] Cardiology 09/04/16 Lakesha Sanchez MD [address] [place] [phone] Primary Staff Physician Cardiology 08/05/18 Finance Director Relationship Specialty Start Date End Date Michel Alcazar [address] [place] [phone] PCP - General Family Medicine 04/22/17 Simon Souza [address] [place] [phone] Cardiology 09/04/16 Lakesha Sanchez MD [address] [place] [phone] Primary Staff Physician Cardiology 08/05/18 Finance Director Relationship Specialty Start Date End Date Michel Alcazar [address] [place] [phone] PCP - General Family Medicine 04/22/17 Simon Souza [address] [place] [phone] Cardiology 09/04/16 Lakesha Sanchez MD [address] [place] [phone] Primary Staff Physician Cardiology 08/05/18 Finance Director Relationship Specialty Start Date End Date Michel Alcazar [address] [place] [phone] PCP - General Family Medicine 04/22/17 Simon Souza [address] [place] [phone] Cardiology 09/04/16 Lakesha Sanchez MD [address] [place] [phone] Primary Staff Physician Cardiology 08/05/18 Finance Director Relationship Specialty Start Date End Date Michel Alcazar [address] [place] [phone] PCP - General Family Medicine 04/22/17 Simon Souza [address] [place] [phone] Cardiology 09/04/16 Lakesha Sanchez MD [address] [place] [phone] Primary Staff Physician Cardiology 08/05/18 Finance Director Relationship Specialty Start Date End Date Michel Alcazar [address] [place] [phone] PCP - General Family Medicine 04/22/17 Simon Souza [address] [place] [phone] Cardiology 09/04/16 Lakesha Sanchez MD [address] [place] [phone] Primary Staff Physician Cardiology 08/05/18 Finance Director Relationship Specialty Start Date End Date Michel Alcazar [address] [place] [phone] PCP - General Family Medicine 04/22/17 Simon Souza [address] [place] [phone] Cardiology 09/04/16 Lakesha Sanchez MD [address] [place] [phone] Primary Staff Physician Cardiology 08/05/18 Finance Director Relationship Specialty Start Date End Date Michel Alcazar [address] [place] [phone] PCP - General Family Medicine 04/22/17 Simon Souza [address] [place] [phone] Cardiology 09/04/16 Lakesha Sanchez MD [address] [place] [phone] Primary Staff Physician Cardiology 08/05/18 Finance Director Relationship Specialty Start Date End Date Michel Alcazar [address] [place] [phone] PCP - General Family Medicine 04/22/17 Simon Souza [address] [place] [phone] Cardiology 09/04/16 Lakesha Sanchez MD [address] [place] [phone] Primary Staff Physician Cardiology 08/05/18 Reason for Visit (unrecogniz ed section and content) Reason Comments Follow Up Reason Comments Patient Education Reason Comments Information Reason Comments Courtesy Call Survey Reason Comments Appointment Reason Onset Date Comments Refill Request 12/29/2021 clopidogrel Reason Comments Established Patient Follow-Up Future Appointment Reason Comments Future Appointment Reason Comments Lab Orders Reason Comments Patient Update Bleeding from rectum Reason Comments Patient Question Reason Comments Received Outside Medical Records Reason Comments Request to hold Plavix Reason Comments est clinical Reason Onset Date Comments Refill Request 12/26/2022 atorvastatin Reason Comments lab orders faxed to [facility] Reason Comments Results Reason Comments Follow Up Ckd Reason Comments Follow Up FOR RECORDS PERTAINING TO PATIENTS WHO ARE OR HAVE BEEN ENROLLED IN A CHEMICAL DEPENDENCY/SUBSTANCEABUSE PROGRAM, SOME INFORMATION MAY BE OMITTED. This clinical summary was aggregated from multiple sources. Caution should be exercised in using it in the provision of clinical care. This summary normalizes information from multiple sources, and as a consequence, information in this document may materially change the coding, format and clinical context of patient data. In addition, data may be omitted in some cases. CLINICAL DECISIONS SHOULD BE BASED ON THE PRIMARY CLINICAL RECORDS. [facility] [employer] provides no warranty or guarantee of the accuracy or completeness of information in this document.
[2023-10-26 20:38] LABS: Basophils Absolute Auto 0.1 10^3/uL (0.0-0.1); Basophils Percent Auto 0.6 % (0.2-2.0); Eosinophils Absolute Auto 0.2 10^3/uL (0.0-0.7); Eosinophils Percent Auto 2.3 % (0.9-7.0); Hematocrit 36.8 % (42.0-54.0); Hemoglobin 12.3 g/dL (14.0-18.0); Immature Granulocytes Abs Auto 0.04 10^3/uL (0.00-0.03); Immature Granulocytes Pct Auto 0.5 % (0.0-0.5); Lymphocytes Absolute Auto 1.4 10^3/uL (1.2-3.8); Lymphocytes Percent Auto 16.2 % (20.5-60.0); Mean Corpuscular HGB Conc 33.4 g/dL (29.9-35.2); Mean Corpuscular Hemoglobin 31.8 pg (25.9-34.0); Mean Corpuscular Volume 95.1 fL (80.0-94.0); Mean Platelet Volume 9.3 fL (9.5-13.5); Monocytes Absolute Auto 0.8 10^3/uL (0.3-0.8); Monocytes Percent Auto 8.6 % (1.7-12.0); Neutrophils Absolute Auto 6.2 10^3/uL (1.4-6.5); Neutrophils Percent Auto 71.8 % (43.0-75.0); Platelet Count 189 10^3/uL (150-450); Red Blood Count 3.87 10^6/uL (4.70-6.10); Red Cell Distribution Width 13.9 % (11.0-15.0); White Blood Count 8.7 10^3/uL (4.0-11.0)
[2023-10-26 20:47] LABS: Anion Gap 10.6; BUN Creatinine Ratio 15.7; Calcium 8.7 mg/dL (8.5-10.1); Carbon Dioxide 28.7 mmol/L (21.0-32.0); Chloride 105 mmol/L (98-107); Estimated GFR (African America 45 (>=60); Estimated GFR (Non-African Ame 37 (>=60); Glucose 100 mg/dL (74-106); Potassium 4.3 mmol/L (3.5-5.1); Sodium 140 mmol/L (136-145)
[2023-10-26 21:07] LABS: INR 1.04
[2023-10-26 21:08] VITALS: BP 115/66; PULSE 69; O2SAT 96
[2023-10-26 22:12] VITALS: BP 112/65; PULSE 70; O2SAT 98
[2023-10-26 22:55] VITALS: BP 107/66; PULSE 71; O2SAT 96
[2023-10-26 23:37] VITALS: BP 120/63; PULSE 71; O2SAT 94
== END 2023-10-26 23:40 | disposition home or self-care (01) ==
PROVIDERS: Physician Assistant; Emergency Provider Emergency Medicine; PCP Family Medicine
DX: K64.4 Residual hemorrhoidal skin tags (principal); Z79.01 Long term (current) use of anticoagulants; Z79.02 Long term (current) use of antithrombotics/antiplatelets
CPT/HCPCS: 36415; 74176; 80048; 85025; 85610; 99284

== ENCOUNTER 2023-11-15 19:36 | Emergency (ER) | payer MEDICARE, OTHER, SELFPAY ==
[2023-11-15 19:45] VITALS: BP 112/71; PULSE 69; TEMP 36.9; O2SAT 99; BMI 26.4
--- OUTSIDE RECORDS SUMMARY | 2023-11-15 19:49 | XMS_ITS | CCD ---
Author Organization [facility] Care Team Providers Care Take Away Man Name Role Phone Simon Souza Unavailable Michel Alcazar Primary Care Provider Lakesha Sanchez MD Unavailable MISC, DR ESPINO Consulting Unavailable NADERER, [...] NADERER, DR MICHEL Chandler Primary Care Unavailable OSEIAZALIA Lyons Consulting Unavailable GRILLIS ., DR LISA Olivo [...] Guillen Consulting Unavailable LIZA PINTO Consulting Unavailable NADEREEnrike, DR MICHEL Chandler Consulting Unavailable CHRISTOPHEEREEnrike, DR MICHEL Chandler Attending Unavailable NADEREEnrike, DR MICHEL Chandler Admitting Unavailable NADEREEnrike, DR MICHEL Chandler Primary Care Unavailable JANEEN MYERS Consulting Unavailable DARAMOLLEVI ChandlerTHERESA Consulting Unavailable GRILLIS ., DR LISA Olivo Consulting Unavaila lloyd ALCAZAR, DR MICHEL Chandler Primary Care Unavailable AMBIKA ., DR LISA Olivo Attending Unavaila lloyd APPLE ., DR LISA Olivo Admitting Unavaila lloyd ALCAZAR, DR MICHEL Chandler Consulting Unavailable OTTONIEL, DR MICHEL Chandler Primary Care Unavailable OTTONIEL, DR MICHEL Chandler Attending Unavailable OTTONIEL, DR MICHEL Chandler Admitting Unavailable Simon Souza B Unavailable Michel Alcazar Primary Care Provider Daniel BROCK, Lakesha N Unavailable Daniel BROCK, Lakesha N Unavailable Daniel BROCK, Lakesha N Unavailable Michel Alcazar Primary Care Provider [phone] MICHEL ALCAZAR Primary Care Unavailable OTTONIEL, MICHEL Chandler Primary Care Unavailable OTTONIEL, MICHEL Chandler Primary Care Unavailable SAVANAH OLMOS Attending Unavailable OTTONIEL, MICHEL Chandler Primary Care Unavailable ROSSY WRIGHT Attending Unavailable NADEREEnrike, MICHEL Chandler Primary Care Unavailable LAKESHA SANCHEZ Attending Unavailable LYLE DE LA ROSA Attending Unavailable OTTONIEL, MICHEL Chandler Primary Care Unavailable Allergies Allergy Classification Reported Allergen(s) Allergy Type Date of Onset Reaction(s) Facility (20 sources) Sulfonamides (Antibiotic); Translations: [SULFA (SULFONAMIDE ANTIBIOTICS)] Drug Intolerance 7 Itching [facility] (20 sources) Iodinated Contrast Media; Translations: [IODINATED CONTRAST MEDIA] Propensity to adverse reactions to drug 7 Other: See Comments [facility] (1 source) Iodine (And Iodine Containting Drugs) Drug allergy (disorder) [facility] (1 source) Sulfonamides (Antibiotic) Drug allergy (disorder) [facility] Repository Medications Current Medications Medication Drug Class(es) Dates Sig (Normalized) Sig (Original) apixaban 2.5 mg oral tablet (20 sources) Factor Xa Inhibitor Start: 03-21-2023 take 1 tablet by mouth twice daily ELIQUIS 2.5 mg tab(s) take 1 tablet by mouth twice daily 180 tablet 3 03/21/2023 Active Start: 01-01-2022 take 1 tablet by patel th twice daily apixaban (ELIQUIS) 2.5 mg tab(s) [...] (20 sources) Nitrate Vasodilator Start: 10-13-19 End: 10-05-19 22 nitroglycerin sublingual (NITROQUICK) 0.4 mg SL [...] Comment on above: Take 1,000 mcg by [facility] once daily. Completed/Discontinued Medications Medication Drug Class(es) [...] on above: Take 1 tablet by patel once daily. Problems Active Problems Problem Classification Problem Date [...] Coronary atherosclerosis; Translations: [Atherosclerotic heart disease of upper [place] coronary artery without angina pectoris] Onset: 7 [...] disease, without long-term current use of insulin ([facility])] Onset: 9 Disorders of lipid metabolism (2 [...] hypertension with chronic kidney disease, stage III ([facility])] Onset: 7 Fluid and electrolyte disorders (2 [...] infection (2 sources) Acute gastroenteropathy due to [place] agent; Translations: [ACUTE [facility]OPATHY [facility]] Onset: 3 Episodic Nausea and vomiting (1 source) Nausea with vomiting, unspecified; Translations: [NAUSEA WITH VOMITING UNSPECIFIED] Onset: 3 Episodic Other aftercare (1 source) Other prison (current) drug therapy; Translations: [OTH PRISON CURRENT DRUG THERAPY] Onset: 3 Episodic Other aftercare (1 source) custodial (current) use of antithrombotics/antipl atelets; Translations: [PRISON ANTITHROMBOT/ANTIPLATL ETS] Onset: 3 Episodic Other and [...] disorders of plasma-protein metabolism, not elsewhere classified] 03-01-2023 Chronic Other nutritional; endocrine; and metabolic disorders [...] Onset: 04-11-2022 Episodic Other aftercare (1 source) data migration lead (current) use of anticoagulants; Translations: [OFFSET PROOF PRESS OPERATOR CURRNT USE ANTICOAGULANTS] Onset: 04-11-2022 Episodic Pulmonary heart disease (1 source) Personal history of pulmonary embolism; Translations: [PERSONAL HISTORY PULMONARY EMBOLISM] Onset: 04-11-2022 Episodic Results Test Name Value Interpretation Reference Range Facility CNOVon 09-03-2023 CNOV Office Visit (MIDMAV ) JUNIOR TAYLOR ([id number]) 1940 M Date Time Provider Department 09/03/23 2:30 PM ROSSY WRIGHT [facility] During your visit today, we recorded the following information about you: Pulse Blood pressure Weight Height 70/minute 89/57 112.4 kg 1.854 m Rossy Wright, MENTAL HEALTH ASSOCIATE.SOLE CONFORMING MACHINE OPERATOR 09/03/2023 2:05 PM Signed Pt is an [...] with PAST MEDICAL HISTORY Diagnosis Date A-fib ([facility]) CAD (coronary artery disease) s/p CABG 4v, pacemaker CKD (chronic kidney disease) stage 3, GFR 30-59 ml/min ([facility]) Diabetes mellitus type 2 in obese GERD [...] follow up in 6 months Rossy Wright APRN.SOLE CONFORMING MACHINE OPERATOR Allergies As of Date: 09/03/2023 Noted Allergy [...] N18.32] Order(s):COMPLETE BLOOD COUNT [SQCBC] Order #: [id number] FUTURE ALBUMIN/CREATININE RATIO, URINE [SQUACR] Order #: [id number] FUTURE RENAL FUNCTION PANEL [SQRFP] Order #: [id number] FUTURE Prescriptions as of 09/03/2023 - ELIQUIS [...] 0.5 tablets by mouth once daily. - mTraks ULTRA TEST test strip once daily. USE [...] Benign hypertens (more content not included)... [facility] ICD REMOTE CHECKon AV Delay Adaptive Paced Minimum (ms) 170 ms [facility] AV Delay Adaptive Sensed Minimum (ms) 120 ms [facility] AV Delay Paced (ms) 90 ms [facility] AV Delay Sensed (ms) 90 ms [facility] Battery Voltage 2.98 V [facility] Johan LV Pacing Amplitude (volts) 2.0 V [facility] Johan LV Pacing Polarity BI [facility] Johan LV Pacing Pulse Width (ms) 0.5 ms [facility] Johan RA Pacing Amplitude (volts) 2.0 V [facility] Johan RA Pacing Polarity BI [facility] Johan RA Pacing Pulse Width (ms) 0.5 ms [facility] Johan RA Sensing Amplitude (mvolts) 0.5 mV [facility] Johan RA Sensing Polarity BI [facility] Jhoan RV Pacing Amplitude (volts) 1.5 V [facility] Johan RV Pacing Polarity BI [facility] Johan RV Pacing Pulse Width (ms) 0.5 ms [facility] Johan RV Sensing Amplitude (mvolts) 0.5 mV [facility] Johan RV Sensing Polarity BI [facility] Detection Configuration (Vent) 1 - Zone [facility] ICD FastVT DetectionStatus DISABLED [facility] ICD-AMS EPISODES 170 {beats}/min [facility] ICD-ATP Episodes (Vent) 0 [facility] ICD-Device Mfg Other [facility] ICD-LEADIMPEDANCEATR IAL 340 ohm [facility] ICD-Percent Pacing (Atrial) 83.0 % [facility] ICD-Shocks Aborted (Vent) 0 [facility] AWM-PRBHLA-KMQQQKATK 0 [facility] ICD-SHOCKSABORTED 0 [facility] ICD-SHOCKSDELIVEREDV ENTRICULAR 0 [facility] ICD-VVDELAY_MS 45 ms [facility] Implant Date 10/18/2021 [facility] Lead Impedance (LV) 800 ohm [facility] Lead Impedance (RV) 460 ohm [facility] Lead Impedance High Voltage 63 ohm [facility] Lead1 Mfg STJ [facility] Lead2 Mfg STJ [facility] Lead3 Mfg STJ [facility] Location LV [facility] Location RA [facility] Location RV [facility] Lower Rate (bpm) 70 {beats}/min [facility] Max Sensor Rate (bpm) 110 {beats}/min [facility] MDT_PROG_TACHY_ZONE_ DETECTIONS_STATUS ENABLED [facility] Model [id number] Avon HF [facility] Model 1458Q Quartet [facility] Model 2088TC Tendril STS [facility] Model 7122Q Durata SJ4 [facility] Pacing Mode DDDR [facility] Serial Number [id number] [facility] Serial Number [id number] [facility] Serial Number [id number] [facility] Serial Number [id number] [facility] Test Charge Energy 40 J [facility] Test Charge Time 9.0 s [facility] Therapy Status (Vent) Enabled [facility] Thresh LV Capture Amplitude (volts) 0.75 V [facility] Thresh LV Capture Duration (ms) 0.5 ms [facility] Thresh RA Capture Amplitude (volts) 0.375 V [facility] Thresh RA Capture Duration (ms) 0.5 ms [facility] Thresh RA Sensing Amplitude (mvolts) 1.6 mV [facility] Thresh RV Capture Amplitude (VOLTS) 0.5 V [facility] Thresh RV Capture Duration (MS) 0.5 ms [facility] Thresh RV Sensing Amplitude (MVOLTS) 12.0 mV [facility] Tracking Rate (bpm) 130 {beats}/min [facility] VF Zone Detection Interval 300 ms [facility] VF Zone Therapy Configuration 0 ATP(s) + 6 Shock(s) [facility] No Panel Informationon 08-01 BLANK _ [facility] Implant Date 03/23/2014 [facility] CNOVon 07-31-2023 CNOV Office Visit (CARCMN ) JUNIOR TAYLOR ([id number]) 1940 M Date Time Provider Department 07/31/23 10:45 AM LAKESHA SANCHEZ [facility] During your visit today, we recorded the following information about you: Pulse Respiration Blood pressure Weight 69/minute 16/minute 107/60 110.7 kg Height 1.854 m Lakesha Sanchez MD 10/15/2023 10:22 AM Signed [facility] [place] [facility] Department of Cardiovascular Medicine SECTION OF CLINICAL CARDIOLOGY OUTPATIENT VISIT DATE August 01, 2023 OUTPATIENT VISIT TYPE ESTABLISHED PRIMARY CARE PHYSICIAN: Michel Alcazar MD ([facility]) [address] [place] [address] REFERRING PHYSICIAN: No referring provider defined for this encounter. CHIEF COMPLAINT: Obstructive coronary artery disease complicated by myocardial infarction Ischemic cardiomyopathy Status post coronary artery bypass graft SATELLITE MANAGER-D placement Atrial fibrillation on Apixaban low dose [...] above PAST MEDICAL HISTORY Diagnosis Date A-fib ([facility]) CAD (coronary artery disease) s/p CABG 4v, pacemaker CKD (chronic kidney disease) stage 3, GFR 30-59 ml/min ([facility]) Diabetes mellitus type 2 in obese GERD [...] Take 0.5 tablets by mouth once daily. mTraks ULTRA TEST test strip once daily. USE [...] in g (more content not included)... [facility] 07-22-2023 [facility] Telephone (CARCMN) BRANDONJUNIOR ([id number]) 1940 M Date Time Provider Department 07/22/23 LAKESHA SANCHEZ CARCMN During your visit today, we recorded the following information about you: Andre Watkins 07/22/2023 12:29 PM Signed Received records from [facility] - ED visit 07-09-2023 Uploaded to scanned documents Appt on 07/31/2023 Last appt - 12/26/2022 Andre Torres Adm Asst III, Clinical Cardiology Allergies As of Date: 07/22/2023 Noted Allergy Reaction IV DYE (IODINATED CONTRAST MEDIA) 04/24/2017 14 - Other: See Comments Comments: May cause kidney problems SULFA (SULFONAMIDE ANTIBIOTICS) 12/05/2016 9 - Itching Date Reviewed: 03/27/2023 Reviewed by: Denisse Brothers RN - Fully Assessed Reason for Visit: Received Outside Medical Records [[id number]] Prescriptions as of 07/22/2023 - ELIQUIS 2.5 [...] 3 chronic k*12/05/2016 Coronary artery disease involving upper [place] jenkins*04/25/2017 Cardiomyopathy, ischemic [I25.5] 04/25/2017 S/P CABG (coronary artery bypass graft) [Z95.1] 04/25/2017 Chronic systolic heart failure (HCC) [I50.22] 04/25/2017 Obesity, Class II, BMI 35-39.9 E66.9 [E66.9] 09/11/2017 Coronary artery disease of upper [place] artery of florencio*02/19/2018 Essential hypertension [I10] 08/14/2018 Encounter Status:Closed by ANDRE WATKINS on 07/22/23 [facility] CNOVon 03-27-2023 CNOV Office Visit (CARDMN ) JUNIOR TAYLOR ([id number]) 1940 M Date Time Provider Department 03/27/23 1:30 PM LYLE DE LA ROSA CARDMN During your visit today, we recorded the following information about you: Pulse Blood pressure Weight Height 73/minute 89/57 112 kg 1.854 m Lyle De La Rosa MD 03/27/2023 1:45 PM Signed [facility] [place] [facility] Department of Cardiovascular Medicine SECTION OF CARDIAC PACING and ELECTROPHYSIOLOGY OUTPATIENT VISIT DATE March 27, 2023 OUTPATIENT VISIT TYPE ESTABLISHED PRIMARY CARE PHYSICIAN: Michel Alcazar MD ([facility]) [address] [place] [address] CHIEF COMPLAINT: SATELLITE MANAGER-D HISTORY OF PRESENT ILLNESS/ NURSING INTAKE HISTORY: Mr. Taylor is a 82 year old male who presents today for follow-up visit for device management. He has a history of CAD s/p CABG x4 (early 1999s, ischemic cardiomyopathy s/p SATELLITE MANAGER-D 03/23/14, low-burden PAF (eliquis- once daily only [...] syncope. PAST MEDICAL HISTORY Diagnosis Date A-fib ([facility]) CAD (coronary artery disease) s/p CABG 4v, pacemaker CKD (chronic kidney disease) stage 3, GFR 30-59 ml/min ([facility]) Diabetes mellitus type 2 in obese ([facility]) GERD (gastroesophageal reflux disease) Hyperlipidemia Hypertension PAST [...] Take 0.5 tablets by mouth once daily. mTraks ULTRA TEST test strip once daily. USE [...] EGM: /AP/ (more content not included)... [facility] ECG COMPLETEon 03-27-2023 ECG COMPLETE Ventricular Rate : 7 3 BPM Atrial Rate : 73 BPM P-R Interval : 198 ms QRS Duration : 142 ms Q-T Interval : 452 ms QTC Calculation(Bazett) : 497 ms Calculated R [place] : -132 degrees Calculated T [place] : 52 degrees AV DUAL-PACED RHYTHM WITH OCCASIONAL VENTRICULAR-PACED COMPLEXES AND WITH OCCASIONAL PREMATURE VENTRICULAR COMPLEXES ABNORMAL ECG Confirmed by LISA CIFUENTES MD ([id number]) on 04/03/2023 8:19:16 PM NAME : JUNIOR TAYLOR PID : [id number] : 1940 Gender : Male Race : ORD : [id number] Procedure Date : Mar 27 2023 10:14:32 [...] Referred By : , Acquired by : FRANCOAUGUST [facility] ICD CLINIC CHECKon 3 AV Delay Adaptive Paced Minimum (ms) 170 ms [facility] AV Delay Adaptive Rate Maximum (bpm) 130 {beats}/min [facility] AV Delay Adaptive Rate Minimum (bpm) 90 {beats}/min [facility] AV Delay Adaptive Sensed Minimum (ms) 120 ms [facility] AV Delay Adaptive Status Medium [facility] AV Delay Paced (ms) 90 ms [facility] AV Delay Sensed (ms) 90 ms [facility] Johan LV Pacing Amplitude (volts) 2.0 V [facility] Johan LV Pacing Polarity BI [facility] Johan LV Pacing Pulse Width (ms) 0.5 ms [facility] Johan RA Pacing Amplitude (volts) 2.0 V [facility] Johan RA Pacing Polarity BI [facility] Johan RA Pacing Pulse Width (ms) 0.5 ms [facility] Johan RA Sensing Amplitude (mvolts) 0.5 mV [facility] Johan RA Sensing Blanking Period (ms) 110 ms [facility] Johan RA Sensing Polarity BI [facility] Johan RA Sensing Refractory Period (ms) 190 ms [facility] Johan RV Pacing Amplitude (volts) 1.625 [facility] Johan RV Pacing Polarity BI [facility] Johan RV Pacing Pulse Width (ms) 0.5 ms [facility] Johan RV Sensing Amplitude (mvolts) 0.5 mV [facility] Johan RV Sensing Blanking Period (ms) 44 ms [facility] Johan RV Sensing Polarity BI [facility] Detection Configuration (Vent) 1 - Zone [facility] ICD FastVT DetectionStatus DISABLED [facility] ICD-AMS EPISODES 170 {beats}/min [facility] ICD-Johan RV Sensing Refractory Period (ms) 250 ms [facility] ICD-Device Mfg Other [facility] ICD-FALLBACKRATE_BPM 70 {beats}/min [facility] ICD-Hysteresis Rate Off [facility] ICD-LEADIMPEDANCEATR IAL 337.5 ohm [facility] ICD-Percent Pacing (Atrial) 75.0 % [facility] ICD-Percent Pacing (Vent) 99.0 % [facility] ICD-PMT Intervention Atrial Pace [facility] ICD-PVC Intervention Off [facility] ICD-Rate Modulation Acceleration Reaction Fast [facility] ICD-Rate Modulation Deceleration Medium [facility] ICD-Rate Modulation Tyrrell Auto (+2) [facility] ICD-Rate Modulation Threshold Auto (-0.5) [facility] ICD-Rhythm SR ~66 [facility] ICD-Shocks Aborted (Vent) 0.0 [facility] TYU-RTETAT-PMLIDUOGT 0.0 [facility] ICD-SHOCKSABORTED 0.0 [facility] ICD-SHOCKSDELIVEREDV ENTRICULAR 0.0 [facility] Implant Date 10/18/2021 [facility] Lead Impedance (LV) 825.0 ohm [facility] Lead Impedance (RV) 400.0 ohm [facility] Lead Impedance High Voltage 63.0 ohm [facility] Lead1 Mfg STJ [facility] Lead2 Mfg STJ [facility] Lead3 Mfg STJ [facility] Location LV [facility] Location RA [facility] Location RV [facility] Lower Rate (bpm) 70 {beats}/min [facility] Max Sensor Rate (bpm) 110 {beats}/min [facility] MDT_PROG_TACHY_ZONE_ DETECTIONS_STATUS ENABLED [facility] Model [id number] Avon HF [facility] Model 1458Q Quartet [facility] Model 2088TC Tendril STS [facility] Model 7122Q Durata SJ4 [facility] Pacemaker Dependent? NO [facility] Pacing Mode DDDR [facility] Serial Number [id number] [facility] Serial Number [id number] [facility] Serial Number [id number] [facility] Serial Number [id number] [facility] Test Charge Time 9.125 [facility] Therapy Status (Vent) Enabled [facility] Thresh LV Capture Amplitude (volts) 0.75 V [facility] Thresh LV Capture Duration (ms) 0.5 ms [facility] Thresh RA Capture Amplitude (volts) 0.5 V [facility] Thresh RA Capture Duration (ms) 0.5 ms [facility] Thresh RA Sensing Amplitude (mvolts) 2.6 mV [facility] Thresh RV Capture Amplitude (VOLTS) 0.5 V [facility] Thresh RV Capture Duration (MS) 0.5 ms [facility] Thresh RV Sensing Amplitude (MVOLTS) 12.0 mV [facility] Tracking Rate (bpm) 130 {beats}/min [facility] VF Zone Detection Interval 300 ms [facility] VF Zone Therapy Configuration 1 ATP(s) + 6 Shock(s) [facility] No Panel Informationon 03-27 BLANK _ [facility] Implant Date 03/23/2014 [facility] 03-18-2023 [facility] Telephone (CARDMN) BRANDONJUNIOR ([id number]) 1940 M Date Time Provider Department 03/18/23 LYLE DE LA ROSA During your visit today, we recorded the following information about you: Darnell Tai 03/18/2023 3:24 PM Signed Outside medical records (labs 02/26/2023) scanned into [employer] [address]. Patient is scheduled to see Dr. Lyle De La Rosa on March 27, 2023. Allergies As of Date: 03/18/2023 Noted Allergy Reaction IV DYE (IODINATED CONTRAST MEDIA) 04/24/2017 14 - Other: See Comments Comments: May cause kidney problems SULFA (SULFONAMIDE ANTIBIOTICS) 12/05/2016 9 - Itching Date Reviewed: 03/01/2023 Reviewed by: Ifeanyi Gamble - Fully Assessed Reason for Visit: Received Outside Medical Records [[id number]] Cmt: Labs 02/26/2023 Appointment 03/27/2023 Prescriptions as [...] 3 chronic k*12/05/2016 Coronary artery disease involving upper [place] jenkins*04/25/2017 Cardiomyopathy, ischemic [I25.5] 04/25/2017 S/P CABG (coronary artery bypass graft) [Z95.1] 04/25/2017 Chronic systolic heart failure (HCC) [I50.22] 04/25/2017 Obesity, Class II, BMI 35-39.9 E66.9 [E66.9] 09/11/2017 Coronary artery disease of upper [place] artery of florencio*02/19/2018 Essential hypertension [I10] 08/14/2018 Encounter Status:Closed by DARNELL TAI on 03/18/23 [facility] 03-05-2023 [facility] Telephone ([facility]) JUNIOR TAYLOR ([id number]) 1940 M Date Time Provider Department 03/05/23 SAVANAH OLMOS During your visit today, we recorded the following information about you: Savanah Olmos, 03/05/2023 3:57 PM Signed Called patient. He had lab work done with UA and UPCR/ UACR locally. Received results today and did not show protein loss. UACR was 25.7 and UPCR was 0.12. Savanah Olmos, March 05, 2023, 3:57 PM Allergies As [...] 3 chronic k*12/05/2016 Coronary artery disease involving upper [place] jenkins*04/25/2017 Cardiomyopathy, ischemic [I25.5] 04/25/2017 S/P CABG (coronary artery bypass graft) [Z95.1] 04/25/2017 Chronic systolic heart failure (HCC) [I50.22] 04/25/2017 Obesity, Class II, BMI 35-39.9 E66.9 [E66.9] 09/11/2017 Coronary artery disease of upper [place] artery of florencio*02/19/2018 Essential hypertension [I10] 08/14/2018 Encounter Status:Closed by SAVANAH [facility]LMOS [facility]05[facility] JUNIOR TAYLOR ([id number]) 1940 M Date Time Provider Department 03/01/23 3:20 PM SAVANAH OLMOS [facility] During [...] if able to, please call me at [phone] if you are ordered a test requiring [...] 1.5-1.8mg/dL) PAST MEDICAL HISTORY Diagnosis Date A-fib ([facility]) CAD (coronary artery disease) s/p CABG 4v, pacemaker CKD (chronic kidney disease) stage 3, GFR 30-59 ml/min ([facility]) Diabetes mellitus type 2 in obese ([facility]) GERD (gastroesophageal reflux disease) Hyperlipidemia Hypertension PAST [...] 5 minutes as needed for chest pain. OctonotcoUCH ULTRA TEST test strip once daily. USE [...] Right upp (more content not included)... [facility]UN[facility]AY[facility] ([id number]) 1940 M Date Time Provider Department 02/25/23 ROSSY WRIGHT During your visit today, we recorded the following information about you: Beryl Anderson 02/25/2023 10:19 AM Signed of Junior Taylor is calling Rossy Wright APRN.SOLE CONFORMING MACHINE OPERATOR today to request lab orders be faxed to [facility] at [phone]. They need this shane because they have an office visit Saturday. They want to go to the lab tomorrow if possible. Please call Alma Rosa when orders are faxed. They will fax results to [facility]. No chief complaint on file. Patient has been identified by name and birthdate. Duration of symptoms: Person calling: spouse: Alma Rosa Call patient at: Home [phone] (home) [phone] (cell) Was an appointment scheduled: Closing statement: Ifeanyi Null 02/25/2023 11:21 AM Signed The requested document has been faxed to [phone]. Received a fax confirmation of [place] on [...] Reason for Visit: lab orders faxed to [facility] [Other] Prescriptions as of 02/25/2023 - atorvastatin [...] 3 chronic k*12/05/2016 Coronary artery disease involving upper [place] jenkins*04/25/2017 Cardiomyopathy, ischemic [I25.5] 04/25/2017 S/P CABG (coronary artery bypass graft) [Z95.1] 04/25/2017 Chronic systolic heart failure (HCC) [I50.22] 04/25/2017 Obesity, Class II, BMI 35-39.9 E66.9 [E66.9] 09/11/2017 Coronary artery disease of upper [place] artery of florencio*02/19/2018 Essential hypertension [I10] 08/14/2018 Encounter Status:Closed by IFEANYI GAMBLE on 02/25/23 [facility] ICD REMOTE CHECKon 3 AV Delay Adaptive Paced Minimum (ms) 170 ms [facility] AV Delay Adaptive Sensed Minimum (ms) 120 ms [facility] AV Delay Paced (ms) 90 ms [facility] AV Delay Sensed (ms) 90 ms [facility] Battery Voltage 2.98 V [facility] Johan LV Pacing Amplitude (volts) 2.0 V [facility] Johan LV Pacing Polarity BI [facility] Johan LV Pacing Pulse Width (ms) 0.5 ms [facility] Johan RA Pacing Amplitude (volts) 2.0 V [facility] Johan RA Pacing Polarity BI [facility] Johan RA Pacing Pulse Width (ms) 0.5 ms [facility] Johan RA Sensing Amplitude (mvolts) 0.5 mV [facility] Johan RA Sensing Polarity BI [facility] Johan RV Pacing Amplitude (volts) 1.5 V [facility] Johan RV Pacing Polarity BI [facility] Johan RV Pacing Pulse Width (ms) 0.5 ms [facility] Johan RV Sensing Amplitude (mvolts) 0.5 mV [facility] Johan RV Sensing Polarity BI [facility] Detection Configuration (Vent) 1 - Zone [facility] ICD FastVT DetectionStatus DISABLED [facility] ICD-AMS EPISODES 170 {beats}/min [facility] ICD-ATP Episodes (Vent) 0 [facility] ICD-Device Mfg Other [facility] ICD-LEADIMPEDANCEATR IAL 340 ohm [facility] ICD-Percent Pacing (Atrial) 74.0 % [facility] ICD-Shocks Aborted (Vent) 0 [facility] [id number] 0 [facility] ICD-SHOCKSABORTED 0 [facility] ICD-SHOCKSDELIVEREDV ENTRICULAR 0 [facility] ICD-VVDELAY_MS 45 ms [facility] Implant Date 10/18/2021 [facility] Lead Impedance (LV) 800 ohm [facility] Lead Impedance (RV) 400 ohm [facility] Lead Impedance High Voltage 60 ohm [facility] Lead1 Mfg STJ [facility] Lead2 Mfg STJ [facility] Lead3 Mfg STJ [facility] Location LV [facility] Location RA [facility] Location RV [facility] Lower Rate (bpm) 70 {beats}/min [facility] Max Sensor Rate (bpm) 110 {beats}/min [facility] MDT_PROG_TACHY_ZONE_ DETECTIONS_STATUS ENABLED [facility] Model [id number] [place] HF [facility] Model 1458Q Quartet [facility] Model 2088TC Tendril STS [facility] Model 7122Q Durata SJ4 [facility] Pacing Mode DDDR [facility] Serial Number [id number] [facility] Serial Number [id number] [facility] Serial Number [id number] [facility] Serial Number [id number] [facility] Test Charge Energy 40 J [facility] Test Charge Time 9.1 s [facility] Therapy Status (Vent) Enabled [facility] Thresh LV Capture Amplitude (volts) 0.75 V [facility] Thresh LV Capture Duration (ms) 0.5 ms [facility] Thresh RA Capture Amplitude (volts) 0.375 V [facility] Thresh RA Capture Duration (ms) 0.5 ms [facility] Thresh RA Sensing Amplitude (mvolts) 2.1 mV [facility] Thresh RV Capture Amplitude (VOLTS) 0.5 V [facility] Thresh RV Capture Duration (MS) 0.5 ms [facility] Thresh RV Sensing Amplitude (MVOLTS) 12.0 mV [facility] Tracking Rate (bpm) 130 {beats}/min [facility] VF Zone Detection Interval 300 ms [facility] VF Zone Therapy Configuration 0 ATP(s) + 6 Shock(s) [facility] No Panel Informationon 02-01 BLANK _ [facility] Implant Date 03/23/2014 [facility] CNPNon 10-30-2022 CNPN Telephone (CARDMN) JUNIOR TAYLOR ([id number]) 1940 M Date Time Provider Department 10/30/22 [...] - Itching Date Reviewed: 08/13/2022 Reviewed by: Iefanyi Gamble - Fully Assessed Reason for Visit: Patient Question [1108] Cmt: called states was schedule for a remote check on October 25; but she discover the monitor was off. want to confirm, if transmission was received. Please call [phone] Prescriptions as of 10/30/2022 - ONETOUCH ULTRA [...] 3 chronic k*12/05/2016 Coronary artery disease involving [place]*04/25/2017 Cardiomyopathy, ischemic [I25.5] 04/25/2017 S/P CABG (coronary artery bypass graft) [Z95.1] 04/25/2017 Chronic systolic heart failure (HCC) [I50.22] 04/25/2017 Obesity, Class II, BMI 35-39.9 E66.9 [E66.9] 09/11/2017 Coronary artery disease of upper [place] artery of [place]*02/19/2018 Essential hypertension [I10] 08/14/2018 Encounter Status:Closed by HEIDY HU RN on 10/30/22 Normal [facility] CBC AUTO DIFFon 07-23-2022 BASO # 0.0 103/ul Normal 0.0-0.1 [facility] Comment on above: Performed By: #### P THINT #### [facility] [address] [place] [address] Dr. Darline Starr Basophils/100 WBC (Bld) 0.3 % Normal 0.2-2.0 [facility] Comment on above: Performed By: #### P THINT #### [facility] [address] [place] [address] Dr. Darline Starr EO # 0.4 103/ul Normal 0.0-0.7 [facility] Comment on above: Performed By: #### P THINT #### [facility] [address] [place] [address] Dr. Darline Starr Eosinophils/100 WBC (Bld) 4.6 % Normal 0.9-7.0 [facility] Comment on above: Performed By: #### P THINT #### [facility] [address] [place] [address] Dr. Darline Starr Erythrocyte distribution width (RBC) [Ratio] 14.6 % Normal 11.0-15.0 [facility] Comment on above: Performed By: #### P THINT #### [facility] [address] [place] [address] Dr. Darline Starr Hematocrit (Bld) [Volume fraction] 33.6 % Critically low 42.0-54.0 [facility] Comment on above: Performed By: #### P THINT #### [facility] [address] [place] [address] Dr. Darline Starr Hemoglobin (Bld) [Mass/Vol] 11.5 g/dL Critically low 14.0-18.0 [facility] Comment on above: Performed By: #### P THINT #### [facility] [address] [place] [address] Dr. Darline Starr IG # 0.03 10e3/ul Normal 0.00-0.03 [facility] Comment on above: Performed By: #### P THINT #### [facility] [address] [place] [address] Dr. Darline Starr IG % 0.4 % Normal 0.0-0.5 [facility] Comment on above: Performed By: #### P THINT #### [facility] [address] [place] [address] Dr. Darline Starr LYMPH # 0.9 103/ul Critically low 1.2-3.8 [facility] Comment on above: Performed By: #### P THINT #### [facility] [address] [place] [address] Dr. Darline Starr Lymphocytes/100 WBC (Bld) 11.5 % Critically low 20.5-60.0 [facility] Comment on above: Performed By: #### P THINT #### [facility] [address] [place] [address] Dr. Darline Starr MANUAL DIFF REQ NO Normal [facility] Comment on above: Performed By: #### P THINT #### [facility] [address] [place] [address] Dr. Darline Starr MCH (RBC) [Entitic mass] 31.3 pg Normal 25.9-34.0 [facility] Comment on above: Performed By: #### P THINT #### [facility] [address] [place] [address] Dr. Darline Starr MCHC (RBC) [Mass/Vol] 34.2 g/dL Normal 29.9-35.2 [facility] Comment on above: Performed By: #### P THINT #### [facility] [address] [place] [address] Dr. Darline Starr MCV (RBC) [Entitic vol] 91.3 fL Normal 80.0-94.0 [facility] Comment on above: Performed By: #### P THINT #### [facility] [address] [place] [address] Dr. Darline Starr MONO # 0.8 103/ul Normal 0.3-0.8 [facility] Comment on above: Performed By: #### P THINT #### [facility] [address] [place] [address] Dr. Darline Starr Monocytes/100 WBC (Bld) 9.5 % Normal 1.7-12.0 [facility] Comment on above: Performed By: #### P THINT #### [facility] [address] [place] [address] Dr. Darline Starr NEUT # 5.9 103/ul Normal 1.4-6.5 [facility] Comment on above: Performed By: #### P THINT #### [facility] [address] [place] [address] Dr. Darline Starr Neutrophils/100 WBC (Bld) 73.7 % Normal 43.0-75.0 [facility] Comment on above: Performed By: #### P THINT #### [facility] [address] [place] [address] Dr. Darline Starr Platelet mean volume (Bld) [Entitic vol] 9.5 fL Normal 9.5-13.5 [facility] Comment on above: Performed By: #### P THINT #### [facility] [address] [place] [address] Dr. Darline Starr PLT 128 103/ul Critically low 150-450 [facility] Comment on above: Performed By: #### P THINT #### [facility] [address] [place] [address] Dr. Darline Starr RBC 3.68 106/ul Critically low 4.70-6.10 [facility] Comment on above: Performed By: #### P THINT #### [facility] [address] [place] [address] Dr. Darline Starr WBC 8.0 103/ul Normal 4.0-11.0 [facility] Comment on above: Performed By: #### P THINT #### [facility] [address] [place] [address] Dr. Darline Starr CPKon 07-23-2022 CK [Catalytic activity/Vol] 382 U/L Critically high 39-308 [facility] Comment on above: Performed By: #### C K #### [facility] [address] [place] [address] Dr. Darline Starr GLYCOHEMOGLOBIN A1Con 2022 ADA RECOMMENDATION SEE BELOW Normal [facility] Comment on above: Result Comment: ADA RECOMMENDED LIMIT 4.0 - 6.0 ADA THERAPEUTIC TARGET < 7.0 ACTION SUGGESTED > 7.0 Performed By: #### P OCGLUC #### [facility] [address] [address] [address] Darline Starr Glucose [Mass/Vol] 131 mg/dL Normal [facility] Comment on above: Performed By: #### P OCGLUC #### [facility] [address] [address] [address] Darline Starr HbA1c (Bld) [Mass fraction] 6.2 % Normal 4.5-6.2 [facility] Comment on above: Performed By: #### P OCGLUC #### [facility] [address] [address] [address] Darline Starr POINT OF CARE GLUCOSEon Glucose [Mass/Vol] 197 mg/dL Critically high 74-106 [facility] Comment on above: Performed By: #### P OCGLUC #### [facility] [address] [address] [address] Darline Starr Glucose [Mass/Vol] 74 mg/dL Normal 74-106 [facility] Comment on above: Performed By: #### P OCGLUC #### [facility] [address] [address] [address] Darline Starr Glucose [Mass/Vol] 75 mg/dL Normal 74-106 [facility] Comment on above: Performed By: #### P OCGLUC #### [facility] [address] [address] [address] Darline Starr Glucose [Mass/Vol] 98 mg/dL Normal 74-106 [facility] Comment on above: Performed By: #### C K #### [facility] [address] [address] [address] Darline Starr Glucose [Mass/Vol] 70 mg/dL Critically low 74-106 [facility] Comment on above: Performed By: #### P OCGLUC #### [facility] [address] [address] [address] Darline Starr Glucose [Mass/Vol] 75 mg/dL Normal 74-106 [facility] Comment on above: Performed By: #### P OCGLUC #### [facility] [address] [address] [address] Darline Starr Glucose [Mass/Vol] 53 mg/dL Critically low 74-106 [facility] Comment on above: Performed By: #### P THINT #### [facility] [address] [address] [address] Darline Starr PROF CHEM 8 (BAS METB)on Anion gap [Moles/Vol] 13.9 mmol/L Normal [facility] Comment on above: Performed By: #### P OCGLUC #### [facility] [address] [address] [address] Darline Starr Calcium [Mass/Vol] 7.9 mg/dL Critically low 8.5-10.1 [facility] Comment on above: Performed By: #### P OCGLUC #### [facility] [address] [address] [address] Darline Starr Chloride [Moles/Vol] 107 mmol/L Normal 98-107 [facility] Comment on above: Performed By: #### P OCGLUC #### [facility] [address] [address] [address] Darline Starr CO2 [Moles/Vol] 22.9 mmol/L Normal 21.0-32.0 [facility] Comment on above: Performed By: #### P OCGLUC #### [facility] [address] [address] [address] Darline Starr Creatinine [Mass/Vol] 1.70 mg/dL Critically high 0.70-1.30 [facility] Comment on above: Performed By: #### P OCGLUC #### [facility] [address] [address] [address] Darline Starr EGFR-AF TURKISH 47 mL/min/1.73m2 Critically low >=60 [facility] Comment on above: Performed By: #### P OCGLUC #### [facility] [address] [address] [address] Darline Starr EGFR-NON AF TURKISH 39 mL/min/1.73m2 Critically low >=60 [facility] Comment on above: Performed By: #### P OCGLUC #### [facility] [address] [address] [address] Darline Starr Glucose [Mass/Vol] 71 mg/dL Critically low 74-[address] [facility] Comment on above: Performed By: #### P OCGLUC #### [facility] [address] [address] [address] Darline Starr Potassium [Moles/Vol] 3.8 mmol/L Normal 3.5-5.1 [facility] Comment on above: Performed By: #### P OCGLUC #### [facility] [address] [address] [address] Darline Starr Sodium [Moles/Vol] 140 mmol/L Normal 136-145 [facility] Comment on above: Performed By: #### P OCGLUC #### [facility] [address] [address] [address] Darline Starr Urea nitrogen [Mass/Vol] 28.0 mg/dL Critically high 7.0-18.0 [facility] Comment on above: Performed By: #### P OCGLUC #### [facility] [address] [address] [address] Darline Starr Urea nitrogen/Creatinine [Mass ratio] 16.5 mg/mg Normal [facility] Comment on above: Performed By: #### P OCGLUC #### [facility] [address] [address] [address] Darline Starr TSHon 07-23-2022 TSH 1.377 uIU/mL Normal 0.358-3.740 [facility] Comment on above: Performed By: #### P OCGLUC #### [facility] [address] [address] [address] Darline Starr CARDIAC PHILIP ADMITon 023 CK [Catalytic activity/Vol] 507 U/L Critically high 39-308 [facility] Comment on above: Performed By: #### P THINT #### [facility] [address] [place] [address] Dr. Darline Starr CK.MB [Mass/Vol] ng/mL Normal <=3.60 [facility] Comment on above: Performed By: #### P THINT #### [facility] [address] [place] [address] Dr. Darline Starr HSTROP 36.5 pg/mL Normal 4.0-76.1 [facility] Comment on above: Result Comment: CUT- OFF POINTS HAVE BEEN ESTABLISHED BASED ON THE FOURTH UNIVERSAL DEFINITIONS OF MYOCARDIAL INFARCTION. THE UPPER REFERENCE LIMIT (URL) OF TROPONIN, DEFINED THE 99TH PERCENTILE OF cTnI DISTRIBUTION IN A REFERENCE POPULATION, HAS BEEN CONFIRMED THE DECISION THRESHOLD FOR MO DIAGNOSIS. Performed By: #### P THINT #### [facility] [address] [place] [address] Dr. Darline Starr BRAYDEN 512 ng/mL Critically high 16-96 [facility] Comment on above: Performed By: #### P THINT #### [facility] [address] [place] [address] Dr. Darline Starr CBC AUTO DIFFon 07-22-2022 BASO # 0.0 103/ul Normal 0.0-0.1 [facility] Comment on above: Performed By: #### P THINT #### [facility] [address] [place] [address] Dr. Darline Starr Basophils/100 WBC (Bld) 0.2 % Normal 0.2-2.0 [facility] Comment on above: Performed By: #### P THINT #### [facility] [address] [place] [address] Dr. Darline Starr EO # 0.0 103/ul Normal 0.0-0.7 [facility] Comment on above: Performed By: #### P THINT #### [facility] [address] [place] [address] Dr. Darline Starr Eosinophils/100 WBC (Bld) 0.3 % Critically low 0.9-7.0 [facility] Comment on above: Performed By: #### P THINT #### [facility] [address] [address] [address] Darline Starr Erythrocyte distribution width (RBC) [Ratio] 14.6 % Normal 11.0-15.0 [facility] Comment on above: Performed By: #### P THINT #### [facility] [address] [place] [address] Dr. Darline Starr Hematocrit (Bld) [Volume fraction] 33.2 % Critically low 42.0-54.0 [facility] Comment on above: Performed By: #### P THINT #### [facility] [address] [place] [address] Dr. Darline Starr Hemoglobin (Bld) [Mass/Vol] 11.1 g/dL Critically low 14.0-18.0 [facility] Comment on above: Performed By: #### P THINT #### [facility] [address] [place] [address] Dr. Darline Starr IG # 0.04 10e3/ul Critically high 0.00-0.[address] [facility] Comment on above: Performed By: #### P THINT #### [facility] [address] [place] [address] Dr. Darline Starr IG % 0.4 % Normal 0.0-0.5 [facility] Comment on above: Performed By: #### P THINT #### [facility] [address] [place] [address] Dr. Darline Starr LYMPH # 0.4 103/ul Critically low 1.2-3.8 [facility] Comment on above: Performed By: #### P THINT #### [facility] [address] [address] [address] Darline Starr Lymphocytes/100 WBC (Bld) 3.7 % Critically low 20.5-60.0 [facility] Comment on above: Performed By: #### P THINT #### [facility] [address] [place] [address] Dr. Darline Starr MANUAL DIFF REQ NO Normal [facility] Comment on above: Performed By: #### P THINT #### [facility] [address] [address] [address] Darline Starr MCH (RBC) [Entitic mass] 30.9 pg Normal 25.9-34.0 [facility] Comment on above: Performed By: #### P THINT #### [facility] [address] [address] [address] Darline Starr MCHC (RBC) [Mass/Vol] 33.4 g/dL Normal 29.9-35.2 [facility] Comment on above: Performed By: #### P THINT #### [facility] [address] [address] [address] Darline Starr MCV (RBC) [Entitic vol] 92.5 fL Normal 80.0-94.0 [facility] Comment on above: Performed By: #### P THINT #### [facility] [address] [place] [address] Dr. Darline Starr MONO # 0.6 103/ul Normal 0.3-0.8 [facility] Comment on above: Performed By: #### P THINT #### [facility] [address] [address] [address] Darline Starr Monocytes/100 WBC (Bld) 5.7 % Normal 1.7-12.0 [facility] Comment on above: Performed By: #### P THINT #### [facility] [address] [address] [address] Darline Starr NEUT # 9.1 103/ul Critically high 1.4-6.5 [facility] Comment on above: Performed By: #### P THINT #### [facility] [address] [address] [address] Darline Starr Neutrophils/100 WBC (Bld) 89.7 % Critically high 43.0-75.0 [facility] Comment on above: Performed By: #### P THINT #### [facility] [address] [address] [address] Darline Starr Platelet mean volume (Bld) [Entitic vol] 9.2 fL Critically low 9.5-13.5 [facility] Comment on above: Performed By: #### P THINT #### [facility] [address] [address] [address] Darline Starr PLT 121 103/ul Critically low 150-450 [facility] Comment on above: Performed By: #### P THINT #### [facility] [address] [address] [address] Darline Starr RBC 3.59 106/ul Critically low 4.70-6.10 [facility] Comment on above: Performed By: #### P THINT #### [facility] [address] [address] [address] Darline Starr WBC 10.2 103/ul Normal 4.0-11.0 [facility] Comment on above: Performed By: #### P THINT #### [facility] [address] [place] [address] Dr. Darline Starr Covid-19 PCR ([facility])on SARS-CoV-2 (COVID-19) RNA MILDRED+probe Ql (Unsp spec) Not detected Normal NOT DETECTED [facility] Comment on above: Result Comment: When [...] for this test is supported by the Portal of Health and Human Service's declaration that [...] used). Performed By: #### P OCGLUC #### [facility] [address] [address] [address] Darline Starr POINT OF CARE GLUCOSEon Glucose [Mass/Vol] 141 mg/dL Critically high 74-106 [facility] Comment on above: Performed By: #### P OCGLUC #### [facility] [address] [address] [address] Darline Starr Glucose [Mass/Vol] 55 mg/dL Critically low 74-[address] [facility] Comment on above: Performed By: #### P OCGLUC #### [facility] [address] [address] [address] Darline Starr Glucose [Mass/Vol] 131 mg/dL Critically high 74-106 [facility] Comment on above: Performed By: #### P OCGLUC #### [facility] [address] [place] [address] Dr. Darline Starr PROF CHEM 8 (BAS METB)on Anion gap [Moles/Vol] 13.8 mmol/L Normal [facility] Comment on above: Performed By: #### P OCGLUC #### [facility] [address] [address] [address] Darline Starr Calcium [Mass/Vol] 7.5 mg/dL Critically low 8.5-10.[address] [facility] Comment on above: Performed By: #### P OCGLUC #### [facility] [address] [address] [address] Darline Starr Chloride [Moles/Vol] 104 mmol/L Normal 98-107 [facility] Comment on above: Performed By: #### P OCGLUC #### [facility] [address] [address] [address] Darline Starr CO2 [Moles/Vol] 24.3 mmol/L Normal 21.0-32.0 [facility] Comment on above: Performed By: #### P OCGLUC #### [facility] [address] [place] [address] Dr. Darline Starr Creatinine [Mass/Vol] 2.12 mg/dL Critically high 0.70-1.30 [facility] Comment on above: Performed By: #### P OCGLUC #### [facility] [address] [address] [address] Darline Starr EGFR-AF TURKISH 37 mL/min/1.73m2 Critically low >=60 [facility] Comment on above: Performed By: #### P OCGLUC #### [facility] [address] [address] [address] Darline Starr EGFR-NON AF TURKISH 30 mL/min/1.73m2 Critically low >=60 [facility] Comment on above: Performed By: #### P OCGLUC #### [facility] [address] [address] [address] Darline Starr Glucose [Mass/Vol] 108 mg/dL Critically high 74-106 [facility] Comment on above: Performed By: #### P OCGLUC #### [facility] [address] [address] [address] Darline Starr Potassium [Moles/Vol] 3.1 mmol/L Critically low 3.5-5.1 [facility] Comment on above: Performed By: #### P OCGLUC #### [facility] [address] [address] [address] Darline Starr Sodium [Moles/Vol] 139 mmol/L Normal 136-145 [facility] Comment on above: Performed By: #### P OCGLUC #### [facility] [address] [address] [address] Darline Starr Urea nitrogen [Mass/Vol] 30.0 mg/dL Critically high 7.0-18.0 [facility] Comment on above: Performed By: #### P OCGLUC #### [facility] [address] [address] [address] Darline Starr Urea nitrogen/Creatinine [Mass ratio] 14.2 mg/mg Normal [facility] Comment on above: Performed By: #### P OCGLUC #### [facility] [address] [address] [address] Darline Starr CBC AUTO DIFFon 07-20-2022 BASO # 0.0 103/ul Normal 0.0-0.1 [facility] Comment on above: Performed By: #### C K #### [facility] [address] [place] [address] Dr. Darline Starr Basophils/100 WBC (Bld) 0.2 % Normal 0.2-2.0 [facility] Comment on above: Performed By: #### C K #### [facility] [address] [place] [address] Dr. Darline Starr EO # 0.1 103/ul Normal 0.0-0.7 [facility] Comment on above: Performed By: #### C K #### [facility] [address] [place] [address] Dr. Darline Starr Eosinophils/100 WBC (Bld) 1.2 % Normal 0.9-7.0 [facility] Comment on above: Performed By: #### C K #### [facility] [address] [place] [address] Dr. Darline Starr Erythrocyte distribution width (RBC) [Ratio] 14.2 % Normal 11.0-15.0 [facility] Comment on above: Performed By: #### C K #### [facility] [address] [place] [address] Dr. Darline Starr Hematocrit (Bld) [Volume fraction] 41.4 % Critically low 42.0-54.0 [facility] Comment on above: Performed By: #### C K #### [facility] [address] [place] [address] Dr. Darline Starr Hemoglobin (Bld) [Mass/Vol] 13.7 g/dL Critically low 14.0-18.0 [facility] Comment on above: Performed By: #### C K #### [facility] [address] [place] [address] Dr. Darline Starr IG # 0.03 10e3/ul Normal 0.00-0.03 [facility] Comment on above: Performed By: #### C K #### [facility] [address] [place] [address] Dr. Darline Starr IG % 0.3 % Normal 0.0-0.5 [facility] Comment on above: Performed By: #### C K #### [facility] [address] [address] [address] Darline Starr LYMPH # 0.2 103/ul Critically low 1.2-3.8 [facility] Comment on above: Performed By: #### C K #### [facility] [address] [place] [address] Dr. Darline Starr Lymphocytes/100 WBC (Bld) 2.1 % Critically low 20.5-60.0 [facility] Comment on above: Performed By: #### C K #### [facility] [address] [place] [address] Dr. Darline Starr MANUAL DIFF REQ NO Normal [facility] Comment on above: Performed By: #### C K #### [facility] [address] [place] [address] Dr. Darline Starr MCH (RBC) [Entitic mass] 31.1 pg Normal 25.9-34.0 [facility] Comment on above: Performed By: #### C K #### [facility] [address] [place] [address] Dr. Darline Starr MCHC (RBC) [Mass/Vol] 33.1 g/dL Normal 29.9-35.2 [facility] Comment on above: Performed By: #### C K #### [facility] [address] [place] [address] Dr. Darline Starr MCV (RBC) [Entitic vol] 93.9 fL Normal 80.0-94.0 [facility] Comment on above: Performed By: #### C K #### [facility] [address] [place] [address] Dr. Darline Starr MONO # 0.3 103/ul Normal 0.3-0.8 [facility] Comment on above: Performed By: #### C K #### [facility] [address] [place] [address] Dr. Darline Starr Monocytes/100 WBC (Bld) 2.8 % Normal 1.7-12.0 [facility] Comment on above: Performed By: #### C K #### [facility] [address] [address] [address] Darline Starr NEUT # 10.2 103/ul Critically high 1.4-6.5 [facility] Comment on above: Performed By: #### C K #### [facility] [address] [address] [address] Darline Starr Neutrophils/100 WBC (Bld) 93.4 % Critically high 43.0-75.0 [facility] Comment on above: Performed By: #### C K #### [facility] [address] [address] [address] Darline Starr Platelet mean volume (Bld) [Entitic vol] 9.2 fL Critically low 9.5-13.5 [facility] Comment on above: Performed By: #### C K #### [facility] [address] [place] [address] Dr. Darline Starr PLT 140 103/ul Critically low 150-450 [facility] Comment on above: Performed By: #### C K #### [facility] [address] [place] [address] Dr. Darline Starr RBC 4.41 106/ul Critically low 4.70-6.10 [facility] Comment on above: Performed By: #### C K #### [facility] [address] [place] [address] Dr. Darline Starr WBC 10.9 103/ul Normal 4.0-11.0 [facility] Comment on above: Performed By: #### C K #### [facility] [address] [place] [address] Dr. Darline Strar CPKon 07-20-2022 CK [Catalytic activity/Vol] 128 U/L Normal 39-308 [facility] Comment on above: Performed By: #### M ALBCRL #### [facility] [address] [place] [address] Dr. Darline Starr [facility]on SARS-CoV-2 (COVID-19) RNA MILDRED+probe Ql (Unsp spec) Not detected Normal NOT DETECTED [facility] Comment on above: Result Comment: When [...] for this test is supported by the Portal of Health and Human Service's declaration that [...] used). Performed By: #### C K #### [facility] [address] [place] [address] Dr. Darline Starr GI PANEL (PCR)on 07-20-2022 Adenovirus F 40/41 Not detected Normal NOT DETECTED [facility] Comment on above: Performed By: #### P THINT #### [facility] [address] [place] [address] Dr. Darline Starr Astrovirus Not detected Normal NOT DETECTED [facility] Comment on above: Performed By: #### P THINT #### [facility] [address] [place] [address] Dr. Darline Starr C. Diff toxin A/B Not detected Normal NOT DETECTED [facility] Comment on above: Performed By: #### P THINT #### [facility] [address] [place] [address] Dr. Darline Starr Campylobacter Not detected Normal NOT DETECTED [facility] Comment on above: Performed By: #### P THINT #### [facility] [address] [place] [address] Dr. Darline Starr Cryptosporidium Not detected Normal NOT DETECTED [facility] Comment on above: Performed By: #### P THINT #### [facility] [address] [place] [address] Dr. Darline Starr Cyclos. Cayetanensis Not detected Normal NOT DETECTED [facility] Comment on above: Performed By: #### P THINT #### [facility] [address] [place] [address] Dr. Darline Starr E. Coli O157 Not Applicable Normal Not Applicable [facility] Comment on above: Performed By: #### P THINT #### [facility] [address] [address] [address] Darline Starr E. histolytica Not detected Normal NOT DETECTED [facility] Comment on above: Performed By: #### P THINT #### [facility] [address] [address] [address] Darline Starr EAEC Not detected Normal NOT DETECTED [facility] Comment on above: Performed By: #### P THINT #### [facility] [address] [place] [address] Dr. Darline Starr EIEC Not detected Normal NOT DETECTED [facility] Comment on above: Performed By: #### P THINT #### [facility] [address] [place] [address] Dr. Darline Starr EPEC Not detected Normal NOT DETECTED [facility] Comment on above: Performed By: #### P THINT #### [facility] [address] [place] [address] Dr. Darline Starr ETEC Not detected Normal NOT DETECTED [facility] Comment on above: Performed By: #### P THINT #### [facility] [address] [place] [address] Dr. Darline Starr G. Lamblia Not detected Normal NOT DETECTED [facility] Comment on above: Performed By: #### P THINT #### [facility] [address] [place] [address] Dr. Darline RUDOLPHANEL CONTROLS PASSED Normal [facility] Comment on above: Performed By: #### P THINT #### [facility] [address] [address] [address] Darline RUDOLPHNL PETEY HEADER GI PANEL BACTERIA Normal [facility] Comment on above: Performed By: #### P THINT #### [facility] [address] [address] [address] Darline MORALES ECOLI GI PANEL DIARRHEAGEN IC E.COLI / SHIGELLA Normal [facility] Comment on above: Performed By: #### P THINT #### [facility] [address] [address] [address] Darline MORALES INFO SEE BELOW Normal [facility] Comment on above: Result Comment: EAEC - Enteroaggregative E. Coli EPEC- Enteropathogenic E. Coli ETEC- Enterotoxigenic E. Coli lt/st STEC- Shigella-like toxin-producing E. Coli stx1/stx2 EIEC- Shigella/Enteroinvasive E. Coli Performed By: #### P THINT #### [facility] [address] [address] [address] Darline MORALES PARASITES GI PANEL PARASITES Normal [facility] Comment on above: Performed By: #### P THINT #### [facility] [address] [address] [address] Darline MORALES VIRUS GI PANEL VIRUSES Normal [facility] Comment on above: Performed By: #### P THINT #### [facility] [address] [address] [address] aDrline Starr Norovirus GI/GII Detected Abnormal NOT DETECTED [facility] Comment on above: Performed By: #### P THINT #### [facility] [address] [address] [address] Darline Starr P. Shigelloides Not detected Normal NOT DETECTED [facility] Comment on above: Performed By: #### P THINT #### [facility] [address] [address] [address] Darline Starr Rotavirus A Not detected Normal NOT DETECTED [facility] Comment on above: Performed By: #### P THINT #### [facility] [address] [address] [address] Darline Starr Salmonella Not detected Normal NOT DETECTED [facility] Comment on above: Performed By: #### P THINT #### [facility] [address] [place] [address] Dr. Darline Starr Sapovirus Not detected Normal NOT DETECTED [facility] Comment on above: Performed By: #### P THINT #### [facility] [address] [place] [address] Dr. Darline Starr STEC Not detected Normal NOT DETECTED [facility] Comment on above: Performed By: #### P THINT #### [facility] [address] [place] [address] Dr. Darline Starr Vibrio Not detected Normal NOT DETECTED [facility] Comment on above: Performed By: #### P THINT #### [facility] [address] [place] [address] Dr. Darline Starr Vibrio Cholera Not detected Normal NOT DETECTED [facility] Comment on above: Performed By: #### P THINT #### [facility] [address] [place] [address] Dr. Darline Starr Y. Enterocolitica Not detected Normal NOT DETECTED [facility] Comment on above: Performed By: #### P THINT #### [facility] [address] [place] [address] Dr. Darline Starr LIPASEon 07-20-2022 Lipase [Catalytic activity/Vol] 95.0 U/L Normal 73.0-393.0 [facility] Comment on above: Performed By: #### M ALBCRL #### [facility] [address] [place] [address] Dr. Darline Starr PROF 14(COMP METB)on 023 Albumin [Mass/Vol] 3.3 g/dL Critically low 3.4-5.[address] [facility] Comment on above: Performed By: #### M ALBCRL #### [facility] [address] [place] [address] Dr. Darline Starr Albumin/Globulin [Mass ratio] 1.0 {ratio} Normal [facility] Comment on above: Performed By: #### M ALBCRL #### [facility] [address] [place] [address] Dr. Darline Starr ALP [Catalytic activity/Vol] 107 U/L Normal 46-116 [facility] Comment on above: Performed By: #### M ALBCRL #### [facility] [address] [address] [address] Darline Starr ALT [Catalytic activity/Vol] 23 U/L Normal 16-63 [facility] Comment on above: Performed By: #### M ALBCRL #### [facility] [address] [address] [address] Darline Starr Anion gap [Moles/Vol] 12.2 mmol/L Normal [facility] Comment on above: Performed By: #### M ALBCRL #### [facility] [address] [place] [address] Dr. Darline Starr AST [Catalytic activity/Vol] 27 U/L Normal 15-37 [facility] Comment on above: Performed By: #### M ALBCRL #### [facility] [address] [address] [address] Darline Starr Bilirubin [Mass/Vol] 0.6 mg/dL Normal 0.2-1.0 [facility] Comment on above: Performed By: #### M ALBCRL #### [facility] [address] [address] [address] Darline Starr Calcium [Mass/Vol] 8.8 mg/dL Normal 8.5-10.1 [facility] Comment on above: Performed By: #### M ALBCRL #### [facility] [address] [address] [address] Darline Starr Chloride [Moles/Vol] 105 mmol/L Normal 98-107 [facility] Comment on above: Performed By: #### M ALBCRL #### [facility] [address] [address] [address] Darline Starr CO2 [Moles/Vol] 27.3 mmol/L Normal 21.0-32.0 [facility] Comment on above: Performed By: #### M ALBCRL #### [facility] [address] [address] [address] Darline Starr Creatinine [Mass/Vol] 1.46 mg/dL Critically high 0.70-1.30 [facility] Comment on above: Performed By: #### M ALBCRL #### [facility] [address] [address] [address] Darline Starr EGFR-AF TURKISH 56 mL/min/1.73m2 Critically low >=60 [facility] Comment on above: Performed By: #### M ALBCRL #### [facility] [address] [address] [address] Darline Starr EGFR-NON AF TURKISH 46 mL/min/1.73m2 Critically low >=60 [facility] Comment on above: Performed By: #### M ALBCRL #### [facility] [address] [place] [address] Dr. Darline Starr Globulin (S) [Mass/Vol] 3.3 g/dL Normal [facility] Comment on above: Performed By: #### M ALBCRL #### [facility] [address] [place] [address] Dr. Darline Starr Glucose [Mass/Vol] 149 mg/dL Critically high 74-106 [facility] Comment on above: Performed By: #### M ALBCRL #### [facility] [address] [place] [address] Dr. Darline Starr Potassium [Moles/Vol] 4.5 mmol/L Normal 3.5-5.1 [facility] Comment on above: Performed By: #### M ALBCRL #### [facility] [address] [place] [address] Dr. Darline Starr Protein [Mass/Vol] 6.6 g/dL Normal 6.4-8.2 [facility] Comment on above: Performed By: #### M ALBCRL #### [facility] [address] [address] [address] Darline Strar Sodium [Moles/Vol] 140 mmol/L Normal 136-145 [facility] Comment on above: Performed By: #### M ALBCRL #### [facility] [address] [address] [address] Darline Starr Urea nitrogen [Mass/Vol] 23.0 mg/dL Critically high 7.0-18.0 [facility] Comment on above: Performed By: #### M ALBCRL #### [facility] [address] [address] [address] Darline Starr Urea nitrogen/Creatinine [Mass ratio] 15.8 mg/mg Normal [facility] Comment on above: Performed By: #### M ALBCRL #### [facility] [address] [address] [address] Darline Starr TROPONIN, HIGH SENSITIVITYon 07-20-2022 HSTROP 12.0 pg/mL Normal 4.0-76.1 [facility] Comment on above: Result Comment: CUT- OFF POINTS HAVE BEEN ESTABLISHED BASED ON THE FOURTH UNIVERSAL DEFINITIONS OF MYOCARDIAL INFARCTION. THE UPPER REFERENCE LIMIT (URL) OF TROPONIN, DEFINED THE 99TH PERCENTILE OF cTnI DISTRIBUTION IN A REFERENCE POPULATION, HAS BEEN CONFIRMED THE DECISION THRESHOLD FOR MO DIAGNOSIS. Performed By: #### M ALBCRL #### [facility] [address] [place] [address] Dr. Darline Starr XR ABD FLAT UP_PA [...] overall appears somewhat obese. Electronically authenticated by: [employer] Date: 2022-07-20 13:40 Normal [facility] POINT OF CARE GLUCOSEon 03-0 Glucose [Mass/Vol] 97 mg/dL Normal 74-106 [facility] Comment on above: Performed By: #### P OCGLUC #### [facility] [address] [address] [address] Darline Starr ICD CLINIC CHECKon 3 AV Delay Adaptive Paced Minimum (ms) 170 ms [facility] AV Delay Adaptive Rate Maximum (bpm) 130 {beats}/min [facility] AV Delay Adaptive Rate Minimum (bpm) 90 {beats}/min [facility] AV Delay Adaptive Sensed Minimum (ms) 120 ms [facility] AV Delay Adaptive Status Medium [facility] AV Delay Paced (ms) 90 ms [facility] AV Delay Sensed (ms) 90 ms [facility] Johan LV Pacing Amplitude (volts) 2 V [facility] Johan LV Pacing Polarity BI [facility] Johan LV Pacing Pulse Width (ms) 0.5 ms [facility] Johan RA Pacing Amplitude (volts) 2 V [facility] Johan RA Pacing Polarity BI [facility] Johan RA Pacing Pulse Width (ms) 0.5 ms [facility] Johan RA Sensing Amplitude (mvolts) 0.5 mV [facility] Johan RA Sensing Blanking Period (ms) 110 ms [facility] Johan RA Sensing Polarity BI [facility] Johan RA Sensing Refractory Period (ms) 190 ms [facility] Johan RV Pacing Amplitude (volts) 1.5 V [facility] Johan RV Pacing Polarity BI [facility] Johan RV Pacing Pulse Width (ms) 0.5 ms [facility] Johan RV Sensing Amplitude (mvolts) 0.5 mV [facility] Johan RV Sensing Blanking Period (ms) 44 ms [facility] Johan RV Sensing Polarity BI [facility] Detection Configuration (Vent) 1 - Zone [facility] ICD FastVT DetectionStatus DISABLED [facility] ICD-AMS EPISODES 170 {beats}/min [facility] ICD-Johan RV Sensing Refractory Period (ms) 250 ms [facility] ICD-Device Mfg Other [facility] ICD-FALLBACKRATE_BPM 70 {beats}/min [facility] ICD-Hysteresis Rate Off [facility] ICD-LEADIMPEDANCEATR IAL 337.5 ohm [facility] ICD-Percent Pacing (Atrial) 77 % [facility] ICD-Percent Pacing (Vent) 98 % [facility] ICD-PMT Intervention Atrial Pace [facility] ICD-PVC Intervention Off [facility] ICD-Rate Modulation Acceleration Reaction Fast [facility] ICD-Rate Modulation Deceleration Medium [facility] ICD-Rate Modulation Tyrrell Auto (+2) [facility] ICD-Rate Modulation Threshold Auto (-0.5) [facility] ICD-Rhythm Sinus [facility] ICD-Shocks Aborted (Vent) 0 [facility] [id number]-[id number] 0 [facility] ICD-SHOCKSABORTED 0 [facility] ICD-SHOCKSDELIVEREDV ENTRICULAR 0 [facility] Implant Date 10/18/2021 [facility] Lead Impedance (LV) 862.5 ohm [facility] Lead Impedance (RV) 487.5 ohm [facility] Lead Impedance High Voltage 65.25 ohm [facility] Lead1 Mfg STJ [facility] Lead2 Mfg STJ [facility] Lead3 Mfg STJ [facility] Location LV [facility] Location RA [facility] Location RV [facility] Lower Rate (bpm) 70 {beats}/min [facility] Max Sensor Rate (bpm) 110 {beats}/min [facility] MDT_PROG_TACHY_ZONE_ DETECTIONS_STATUS ENABLED [facility] Model [id number] Avon HF [facility] Model 1458Q Quartet [facility] Model 2088TC Tendril STS [facility] Model 7122Q Durata SJ4 [facility] Pacemaker Dependent? NO [facility] Pacing Mode DDDR [facility] Serial Number [id number] [facility] Serial Number [id number] [facility] Serial Number [id number] [facility] Serial Number [id number] [facility] Therapy Status (Vent) Enabled [facility] Thresh LV Capture Amplitude (volts) 0.75 V [facility] Thresh LV Capture Duration (ms) 0.5 ms [facility] Thresh RA Capture Amplitude (volts) 0.5 V [facility] Thresh RA Capture Duration (ms) 0.5 ms [facility] Thresh RA Sensing Amplitude (mvolts) 1.5 mV [facility] Thresh RV Capture Amplitude (VOLTS) 0.5 V [facility] Thresh RV Capture Duration (MS) 0.5 ms [facility] Thresh RV Sensing Amplitude (MVOLTS) 12 mV [facility] Tracking Rate (bpm) 130 {beats}/min [facility] VF Zone Detection Interval 300 ms [facility] VF Zone Therapy Configuration 1 ATP(s) + 6 Shock(s) [facility] No Panel Informationon 07-04 BLANK _ [facility] Implant Date 03/23/2014 [facility] Covid-19 PCR (CVDTB)on 05-21 SARS-CoV-2 (COVID-19) RNA MILDRED+probe Ql (Unsp spec) Not detected Normal NOT DETECTED [facility] Comment on above: Result Comment: This test is not yet approved or cleared by the [place] FDA. When there are no FDA-approved or cleared tests available, and other criteria are met, FDA can make tests available under an emergency access mechanism called an Emergency Use Authorization (EUA). The EUA for this test is supported by the Portal of Health and Human Service's (HHS's) declaration [...] SARS-CoV-2. Performed By: #### P THINT #### [facility] [address] [place] [address] Dr. Darline Starr ICD REMOTE CHECKon 2 AV Delay Adaptive Paced Minimum (ms) 170 ms [facility] AV Delay Adaptive Sensed Minimum (ms) 120 ms [facility] AV Delay Paced (ms) 90 ms [facility] AV Delay Sensed (ms) 90 ms [facility] Battery Voltage 2.99 V [facility] Johan LV Pacing Amplitude (volts) 2.5 V [facility] Johan LV Pacing Polarity BI [facility] Johan LV Pacing Pulse Width (ms) 0.5 ms [facility] Johan RA Pacing Amplitude (volts) 2 V [facility] Johan RA Pacing Polarity BI [facility] Johan RA Pacing Pulse Width (ms) 0.5 ms [facility] Johan RA Sensing Amplitude (mvolts) 0.5 mV [facility] Johan RA Sensing Polarity BI [facility] Johan RV Pacing Amplitude (volts) 1.5 V [facility] Johan RV Pacing Polarity BI [facility] Johan RV Pacing Pulse Width (ms) 0.5 ms [facility] Johan RV Sensing Amplitude (mvolts) 0.5 mV [facility] Johan RV Sensing Polarity BI [facility] Detection Configuration (Vent) 1 - Zone [facility] ICD FastVT DetectionStatus DISABLED [facility] ICD-AMS EPISODES 170 {beats}/min [facility] ICD-ATP Episodes (Vent) 0 [facility] ICD-Device Mfg Other [facility] ICD-Fast Ventricular Tachycardia 32 [facility] ICD-Fast Ventricular Tachycardia 8 [facility] ICD-LEADIMPEDANCEATR IAL 330 ohm [facility] ICD-Percent Pacing (Atrial) 79 % [facility] ICD-Shocks Aborted (Vent) 0 [facility] [id number] 0 [facility] ICD-SHOCKSABORTED 0 [facility] ICD-SHOCKSDELIVEREDV ENTRICULAR 0 [facility] ICD-Ventricular Fibrillation 0 [facility] ICD-VVDELAY_MS 45 ms [facility] Implant Date 10/18/2021 [facility] Lead Impedance (LV) 760 ohm [facility] Lead Impedance (RV) 380 ohm [facility] Lead Impedance High Voltage 63 ohm [facility] Lead1 Mfg STJ [facility] Lead2 Mfg STJ [facility] Lead3 Mfg STJ [facility] Location LV [facility] Location RA [facility] Location RV [facility] Lower Rate (bpm) 70 {beats}/min [facility] Max Sensor Rate (bpm) 110 {beats}/min [facility] MDT_PROG_TACHY_ZONE_ DETECTIONS_STATUS ENABLED [facility] Model [id number] Avon HF [facility] Model 1458Q Quartet [facility] Model 2088TC Tendril STS [facility] Model 7122Q Durata SJ4 [facility] Pacing Mode DDDR [facility] Serial Number [id number] [facility] Serial Number [id number] [facility] Serial Number [id number] [facility] Serial Number [id number] [facility] Test Charge Energy 40 J [facility] Therapy Status (Vent) Enabled [facility] Thresh LV Capture Amplitude (volts) 1 V [facility] Thresh LV Capture Duration (ms) 0.5 ms [facility] Thresh RA Capture Amplitude (volts) 0.375 V [facility] Thresh RA Capture Duration (ms) 0.5 ms [facility] Thresh RA Sensing Amplitude (mvolts) 2.3 mV [facility] Thresh RV Capture Amplitude (VOLTS) 0.5 V [facility] Thresh RV Capture Duration (MS) 0.5 ms [facility] Thresh RV Sensing Amplitude (MVOLTS) 12 mV [facility] Tracking Rate (bpm) 130 {beats}/min [facility] VF Zone Detection Interval 300 ms [facility] Therapy Configuration 0 ATP(s) + 6 Shock(s) [facility] No Panel Informationon 04-20 BLANK _ [facility] Implant Date 03/23/2014 [facility] CBC AUTO DIFFon 03-27-2022 BASO # 0.1 103/ul Normal 0.0-0.1 [facility] Comment on above: Performed By: #### P OCGLUC #### [facility] [address] [place] [address] Dr. Darline Starr Basophils/100 WBC (Bld) 0.7 % Normal 0.2-2.0 [facility] Comment on above: Performed By: #### P OCGLUC #### [facility] [address] [place] [address] Dr. Darline Starr EO # 0.2 103/ul Normal 0.0-0.7 [facility] Comment on above: Performed By: #### P OCGLUC #### [facility] [address] [address] [address] Darline Starr Eosinophils/100 WBC (Bld) 1.9 % Normal 0.9-7.0 [facility] Comment on above: Performed By: #### P OCGLUC #### [facility] [address] [place] [address] Dr. Darline Starr Erythrocyte distribution width (RBC) [Ratio] 14.5 % Normal 11.0-15.0 [facility] Comment on above: Performed By: #### P OCGLUC #### [facility] [address] [place] [address] Dr. Darline Starr Hematocrit (Bld) [Volume fraction] 37.2 % Critically low 42.0-54.0 [facility] Comment on above: Performed By: #### P OCGLUC #### [facility] [address] [place] [address] Dr. Darline Starr Hemoglobin (Bld) [Mass/Vol] 12.3 g/dL Critically low 14.0-18.0 [facility] Comment on above: Performed By: #### P OCGLUC #### [facility] [address] [address] [address] Darline Starr IG # 0.03 10e3/ul Normal 0.00-0.03 [facility] Comment on above: Performed By: #### P OCGLUC #### [facility] [address] [place] [address] Dr. Darline Starr IG % 0.3 % Normal 0.0-0.5 [facility] Comment on above: Performed By: #### P OCGLUC #### [facility] [address] [place] [address] Dr. Darline Starr LYMPH # 1.1 103/ul Critically low 1.2-3.8 [facility] Comment on above: Performed By: #### P OCGLUC #### [facility] [address] [place] [address] Dr. Darline Starr Lymphocytes/100 WBC (Bld) 12.9 % Critically low 20.5-60.0 [facility] Comment on above: Performed By: #### P OCGLUC #### [facility] [address] [place] [address] Dr. Darline Starr MANUAL DIFF REQ NO Normal [facility] Comment on above: Performed By: #### P OCGLUC #### [facility] [address] [address] [address] Darline Starr MCH (RBC) [Entitic mass] 31.9 pg Normal 25.9-34.0 [facility] Comment on above: Performed By: #### P OCGLUC #### [facility] [address] [place] [address] Dr. Darline Starr MCHC (RBC) [Mass/Vol] 33.1 g/dL Normal 29.9-35.2 [facility] Comment on above: Performed By: #### P OCGLUC #### [facility] [address] [place] [address] Dr. Darline Starr MCV (RBC) [Entitic vol] 96.6 fL Critically high 80.0-94.0 [facility] Comment on above: Performed By: #### P OCGLUC #### [facility] [address] [place] [address] Dr. Darline Starr MONO # 0.7 103/ul Normal 0.3-0.8 [facility] Comment on above: Performed By: #### P OCGLUC #### [facility] [address] [place] [address] Dr. Darline Starr Monocytes/100 WBC (Bld) 7.4 % Normal 1.7-12.0 [facility] Comment on above: Performed By: #### P OCGLUC #### [facility] [address] [place] [address] Dr. Darline Starr NEUT # 6.7 103/ul Critically high 1.4-6.5 [facility] Comment on above: Performed By: #### P OCGLUC #### [facility] [address] [place] [address] Dr. Darline Starr Neutrophils/100 WBC (Bld) 76.8 % Critically high 43.0-75.0 [facility] Comment on above: Performed By: #### P OCGLUC #### [facility] [address] [place] [address] Dr. Darline Starr Platelet mean volume (Bld) [Entitic vol] 9.7 fL Normal 9.5-13.5 [facility] Comment on above: Performed By: #### P OCGLUC #### [facility] [address] [place] [address] Dr. Darline Starr PLT 236 103/ul Normal 150-450 [facility] Comment on above: Performed By: #### P OCGLUC #### [facility] [address] [place] [address] Dr. Darline Starr RBC 3.85 106/ul Critically low 4.70-6.10 [facility] Comment on above: Performed By: #### P OCGLUC #### [facility] [address] [address] [address] Darline Starr WBC 8.7 103/ul Normal 4.0-11.0 [facility] Comment on above: Performed By: #### P OCGLUC #### [facility] [address] [address] [address] Darline Starr GLYCOHEMOGLOBIN A1Con 2021 ADA RECOMMENDATION SEE BELOW Normal [facility] Comment on above: Result Comment: ADA RECOMMENDED LIMIT 4.0 - 6.0 ADA THERAPEUTIC TARGET < 7.0 ACTION SUGGESTED > 7.0 Performed By: #### P OCGLUC #### [facility] [address] [address] [address] Darline Starr Glucose [Mass/Vol] 134 mg/dL Normal [facility] Comment on above: Performed By: #### P OCGLUC #### [facility] [address] [address] [address] Darline Starr HbA1c (Bld) [Mass fraction] 6.3 % Critically high 4.5-6.2 [facility] Comment on above: Performed By: #### P OCGLUC #### [facility] [address] [address] [address] Darline Starr LIPID PROFILEon 03-27-2022 CHOL-HDL RATIO NORM SEE BELOW Normal [facility] Comment on above: Result Comment: 3.3 - 4.4 LOW RISK 4.4 - 7.1 AVERAGE RISK 7.1 - 11.0 MODERATE RISK >11.0 HIGH RISK Performed By: #### P OCGLUC #### [facility] [address] [address] [address] Darline Starr Cholesterol [Mass/Vol] 109 mg/dL Normal <=200 [facility] Comment on above: Performed By: #### P OCGLUC #### [facility] [address] [address] [address] Darline Starr Cholesterol in HDL [Mass/Vol] 39 mg/dL Critically low 40-60 [facility] Comment on above: Performed By: #### P OCGLUC #### [facility] [address] [address] [address] Darline Starr Cholesterol in LDL [Mass/Vol] 32.0 mg/dL Normal [facility] Comment on above: Performed By: #### P OCGLUC #### [facility] [address] [address] [address] Darline Starr Cholesterol.total/Ch olesterol in HDL [Mass ratio] 2.8 {ratio} Normal [facility] Comment on above: Performed By: #### P OCGLUC #### [facility] [address] [address] [address] Darline Starr HDL NORMAL > or = 60 mg/dl - LO W CARDIOVASCULAR RISK <40 mg/dl - HIGH CARDIOVASCULAR RISK Normal [facility] Comment on above: Performed By: #### P OCGLUC #### [facility] [address] [address] [address] Darline Starr LDL CALC NORMAL SEE BELOW Normal [facility] Comment on above: Result Comment: <100 mg/dl OPTIMAL 100 - 129 mg/dl NEAR OR ABOVE OPTIMAL 130 - 159 mg/dl BORDERLINE HIGH 160 - 189 mg/dl HIGH >190 mg/dl VERY HIGH Performed By: #### P OCGLUC #### [facility] [address] [address] [address] Darline Starr Triglyceride [Mass/Vol] 190 mg/dL Critically high <=150 [facility] Comment on above: Performed By: #### P OCGLUC #### [facility] [address] [address] [address] Darline Starr VLDL CALC 38.0 mg/dL Normal [facility] Comment on above: Performed By: #### P OCGLUC #### [facility] [address] [place] [address] Dr. Darline Starr LIVER PROFILEon 03-27-2022 Albumin [Mass/Vol] 3.3 g/dL Critically low 3.4-5.[address] [facility] Comment on above: Performed By: #### P OCGLUC #### [facility] [address] [place] [address] Dr. Darline Starr Albumin/Globulin [Mass ratio] 0.9 {ratio} Normal [facility] Comment on above: Performed By: #### P OCGLUC #### [facility] [address] [place] [address] Dr. Darline Starr ALP [Catalytic activity/Vol] 103 U/L Normal 46-116 [facility] Comment on above: Performed By: #### P OCGLUC #### [facility] [address] [place] [address] Dr. Darline Starr ALT [Catalytic activity/Vol] 25 U/L Normal 16-63 [facility] Comment on above: Performed By: #### P OCGLUC #### [facility] [address] [place] [address] Dr. Darline Starr AST [Catalytic activity/Vol] 18 U/L Normal 15-37 [facility] Comment on above: Performed By: #### P OCGLUC #### [facility] [address] [place] [address] Dr. Darline Starr BILI, CONJUGATED 0.1 mg/dL Normal 0.0-0.2 [facility] Comment on above: Performed By: #### P OCGLUC #### [facility] [address] [place] [address] Dr. Darline Starr Bilirubin [Mass/Vol] 0.3 mg/dL Normal 0.2-1.0 [facility] Comment on above: Performed By: #### P OCGLUC #### [facility] [address] [place] [address] Dr. Darline Starr Globulin (S) [Mass/Vol] 3.7 g/dL Normal [facility] Comment on above: Performed By: #### P OCGLUC #### [facility] [address] [place] [address] Dr. Darline Starr Protein [Mass/Vol] 7.0 g/dL Normal 6.4-8.2 [facility] Comment on above: Performed By: #### P OCGLUC #### [facility] [address] [place] [address] Dr. Darline Starr PROF CHEM 8 (BAS METB)on Anion gap [Moles/Vol] 11.7 mmol/L Normal [facility] Comment on above: Performed By: #### P OCGLUC #### [facility] [address] [address] [address] Darline Starr Calcium [Mass/Vol] 8.9 mg/dL Normal 8.5-10.1 [facility] Comment on above: Performed By: #### P OCGLUC #### [facility] [address] [address] [address] Darline Starr Chloride [Moles/Vol] 104 mmol/L Normal 98-107 [facility] Comment on above: Performed By: #### P OCGLUC #### [facility] [address] [address] [address] Darline Starr CO2 [Moles/Vol] 27.8 mmol/L Normal 21.0-32.0 [facility] Comment on above: Performed By: #### P OCGLUC #### [facility] [address] [address] [address] Darline Starr Creatinine [Mass/Vol] 1.64 mg/dL Critically high 0.70-1.30 [facility] Comment on above: Performed By: #### P OCGLUC #### [facility] [address] [address] [address] Dalrine Starr EGFR-AF TURKISH 49 mL/min/1.73m2 Critically low >=60 [facility] Comment on above: Performed By: #### P OCGLUC #### [facility] [address] [address] [address] Darline Starr EGFR-NON AF TURKISH 41 mL/min/1.73m2 Critically low >=60 [facility] Comment on above: Performed By: #### P OCGLUC #### [facility] [address] [address] [address] Darline Starr Glucose [Mass/Vol] 121 mg/dL Critically high 74-106 [facility] Comment on above: Performed By: #### P OCGLUC #### [facility] [address] [address] [address] Darline Starr Potassium [Moles/Vol] 4.5 mmol/L Normal 3.5-5.1 [facility] Comment on above: Performed By: #### P OCGLUC #### [facility] [address] [place] [address] Dr. Darline Starr Sodium [Moles/Vol] 139 mmol/L Normal 136-145 [facility] Comment on above: Performed By: #### P OCGLUC #### [facility] [address] [place] [address] Dr. Darline Starr Urea nitrogen [Mass/Vol] 23.0 mg/dL Critically high 7.0-18.0 [facility] Comment on above: Performed By: #### P OCGLUC #### [facility] [address] [place] [address] Dr. Darline Starr Urea nitrogen/Creatinine [Mass ratio] 14.0 mg/mg Normal [facility] Comment on above: Performed By: #### P OCGLUC #### [facility] [address] [place] [address] Dr. Darline Starr TSHon 03-27-2022 TSH 2.743 uIU/mL Normal 0.358-3.740 [facility] Comment on above: Performed By: #### P OCGLUC #### [facility] [address] [place] [address] Dr. Darline Starr VITAMIN D 25 OHon 03-27-2022 VIT D 25-OH 46.9 ng/mL Normal [facility] Comment on above: Performed By: #### C K #### [facility] [address] [place] [address] Dr. Darline Starr VIT D RANGES SEE BELOW Normal [facility] Comment on above: Result Comment: <20 ng/mL Vit D deficient 20 - <30 ng/mL Vit D insufficient 30 - 100 ng/mL Vit D sufficient >100 ng/mL Potential Toxicity Performed By: #### C K #### [facility] [address] [place] [address] Dr. Darline Starr CBC AUTO DIFFon 03-12-2022 BASO # 0.1 103/ul Normal 0.0-0.1 [facility] Comment on above: Performed By: #### C BC #### [facility] [address] [place] [address] Dr. Darline Starr Basophils/100 WBC (Bld) 0.5 % Normal 0.2-2.0 [facility] Comment on above: Performed By: #### C BC #### [facility] [address] [place] [address] Dr. Darline Starr EO # 0.4 103/ul Normal 0.0-0.7 [facility] Comment on above: Performed By: #### C BC #### [facility] [address] [place] [address] Dr. Darline Starr Eosinophils/100 WBC (Bld) 3.8 % Normal 0.9-7.0 [facility] Comment on above: Performed By: #### C BC #### [facility] [address] [place] [address] Dr. Darline Starr Erythrocyte distribution width (RBC) [Ratio] 13.3 % Normal 11.0-15.0 [facility] Comment on above: Performed By: #### C BC #### [facility] [address] [place] [address] Dr. Darline Starr Hematocrit (Bld) [Volume fraction] 31.6 % Critically low 42.0-54.0 [facility] Comment on above: Performed By: #### C BC #### [facility] [address] [place] [address] Dr. Darline Starr Hemoglobin (Bld) [Mass/Vol] 10.4 g/dL Critically low 14.0-18.0 [facility] Comment on above: Performed By: #### C BC #### [facility] [address] [place] [address] Dr. Darline Starr IG # 0.06 10e3/ul Critically high 0.00-0.[address] [facility] Comment on above: Performed By: #### C BC #### [facility] [address] [place] [address] Dr. Darline Starr IG % 0.6 % Critically high 0.0-0.5 [facility] Comment on above: Performed By: #### C BC #### [facility] [address] [place] [address] Dr. Darline Starr LYMPH # 1.4 103/ul Normal 1.2-3.8 [facility] Comment on above: Performed By: #### C BC #### [facility] [address] [place] [address] Dr. Darline Starr Lymphocytes/100 WBC (Bld) 15.1 % Critically low 20.5-60.0 [facility] Comment on above: Performed By: #### C BC #### [facility] [address] [place] [address] Dr. Darline Starr MANUAL DIFF REQ NO Normal [facility] Comment on above: Performed By: #### C BC #### [facility] [address] [place] [address] Dr. Darline Starr MCH (RBC) [Entitic mass] 31.4 pg Normal 25.9-34.0 [facility] Comment on above: Performed By: #### C BC #### [facility] [address] [place] [address] Dr. Darline Starr MCHC (RBC) [Mass/Vol] 32.9 g/dL Normal 29.9-35.2 [facility] Comment on above: Performed By: #### C BC #### [facility] [address] [place] [address] Dr. Darline Starr MCV (RBC) [Entitic vol] 95.5 fL Critically high 80.0-94.0 [facility] Comment on above: Performed By: #### C BC #### [facility] [address] [place] [address] Dr. Darline Starr MONO # 0.7 103/ul Normal 0.3-0.8 [facility] Comment on above: Performed By: #### C BC #### [facility] [address] [place] [address] Dr. Darline Starr Monocytes/100 WBC (Bld) 7.5 % Normal 1.7-12.0 [facility] Comment on above: Performed By: #### C BC #### [facility] [address] [address] [address] Darline Starr NEUT # 6.8 103/ul Critically high 1.4-6.5 [facility] Comment on above: Performed By: #### C BC #### [facility] [address] [address] [address] Darline Starr Neutrophils/100 WBC (Bld) 72.5 % Normal 43.0-75.0 [facility] Comment on above: Performed By: #### C BC #### [facility] [address] [place] [address] Dr. Darline Starr Platelet mean volume (Bld) [Entitic vol] 9.3 fL Critically low 9.5-13.5 [facility] Comment on above: Performed By: #### C BC #### [facility] [address] [place] [address] Dr. Darline Starr PLT 194 103/ul Normal 150-450 [facility] Comment on above: Performed By: #### C BC #### [facility] [address] [place] [address] Dr. Darline Starr RBC 3.31 106/ul Critically low 4.70-6.10 [facility] Comment on above: Performed By: #### C BC #### [facility] [address] [place] [address] Dr. Darline Starr WBC 9.4 103/ul Normal 4.0-11.0 [facility] Comment on above: Performed By: #### C BC #### [facility] [address] [place] [address] Dr. Darline Starr HEMOGLOBIN AND HEMATOCRITon 03-12-2022 Hematocrit (Bld) [Volume fraction] 32.7 % Critically low 42.0-54.0 [facility] Comment on above: Performed By: #### P OCGLUC #### [facility] [address] [address] [address] Darline Starr Hemoglobin (Bld) [Mass/Vol] 10.9 g/dL Critically low 14.0-18.0 [facility] Comment on above: Performed By: #### P OCGLUC #### [facility] [address] [place] [address] Dr. Darline Starr POINT OF CARE GLUCOSEon 02-18 Glucose [Mass/Vol] 196 mg/dL Critically high 74-106 [facility] Comment on above: Performed By: #### P OCGLUC #### [facility] [address] [place] [address] Dr. Darline Starr PROF 14(COMP METB)on Albumin [Mass/Vol] 2.5 g/dL Critically low 3.4-5.[address] [facility] Comment on above: Performed By: #### C K #### [facility] [address] [place] [address] Dr. Darline Starr Albumin/Globulin [Mass ratio] 0.7 {ratio} Normal [facility] Comment on above: Performed By: #### C K #### [facility] [address] [place] [address] Dr. Darline Starr ALP [Catalytic activity/Vol] 78 U/L Normal 46-116 [facility] Comment on above: Performed By: #### C K #### [facility] [address] [place] [address] Dr. Darline Starr ALT [Catalytic activity/Vol] 34 U/L Normal 16-63 [facility] Comment on above: Performed By: #### C K #### [facility] [address] [place] [address] Dr. Darline Starr Anion gap [Moles/Vol] 8.5 mmol/L Normal [facility] Comment on above: Performed By: #### C K #### [facility] [address] [place] [address] Dr. Darline Starr AST [Catalytic activity/Vol] 24 U/L Normal 15-37 [facility] Comment on above: Performed By: #### C K #### [facility] [address] [place] [address] Dr. Darline Starr Bilirubin [Mass/Vol] 0.3 mg/dL Normal 0.2-1.0 [facility] Comment on above: Performed By: #### C K #### [facility] [address] [address] [address] Darline Starr Calcium [Mass/Vol] 8.5 mg/dL Normal 8.5-10.1 [facility] Comment on above: Performed By: #### C K #### [facility] [address] [address] [address] Darline Starr Chloride [Moles/Vol] 107 mmol/L Normal 98-107 [facility] Comment on above: Performed By: #### C K #### [facility] [address] [place] [address] Dr. Darline Starr CO2 [Moles/Vol] 26.5 mmol/L Normal 21.0-32.0 [facility] Comment on above: Performed By: #### C K #### [facility] [address] [place] [address] Dr. Darline Starr Creatinine [Mass/Vol] 1.55 mg/dL Critically high 0.70-1.30 [facility] Comment on above: Performed By: #### C K #### [facility] [address] [place] [address] Dr. Darline Starr EGFR-AF TURKISH 53 mL/min/1.73m2 Critically low >=60 [facility] Comment on above: Performed By: #### C K #### [facility] [address] [place] [address] Dr. Darline Starr EGFR-NON AF TURKISH 43 mL/min/1.73m2 Critically low >=60 [facility] Comment on above: Performed By: #### C K #### [facility] [address] [place] [address] Dr. Darline Starr Globulin (S) [Mass/Vol] 3.5 g/dL Normal [facility] Comment on above: Performed By: #### C K #### [facility] [address] [address] [address] Darline Starr Glucose [Mass/Vol] 71 mg/dL Critically low 74-[address] [facility] Comment on above: Performed By: #### C K #### [facility] [address] [place] [address] Dr. Darline Starr Potassium [Moles/Vol] 4.0 mmol/L Normal 3.5-5.1 [facility] Comment on above: Performed By: #### C K #### [facility] [address] [place] [address] Dr. Darline Starr Protein [Mass/Vol] 6.0 g/dL Critically low 6.4-8.[address] [facility] Comment on above: Performed By: #### C K #### [facility] [address] [place] [address] Dr. Darline Starr Sodium [Moles/Vol] 138 mmol/L Normal 136-145 [facility] Comment on above: Performed By: #### C K #### [facility] [address] [place] [address] Dr. Darilne Starr Urea nitrogen [Mass/Vol] 25.0 mg/dL Critically high 7.0-18.0 [facility] Comment on above: Performed By: #### C K #### [facility] Laboratory [address] [place] [address] Dr. Darline Starr Urea nitrogen/Creatinine [Mass ratio] 16.1 mg/mg Normal [facility] Comment on above: Performed By: #### C K #### [facility] [address] [place] [address] Dr. Darline Starr HEMOGLOBIN AND HEMATOCRITon 03-11-2022 Hematocrit (Bld) [Volume fraction] 33.8 % Critically low 42.0-54.0 [facility] Comment on above: Performed By: #### M ALBCRL #### [facility] [address] [place] [address] Dr. Darline Starr Hemoglobin (Bld) [Mass/Vol] 11.3 g/dL Critically low 14.0-18.0 [facility] Comment on above: Performed By: #### M ALBCRL #### [facility] [address] [place] [address] Dr. Darline Starr POINT OF CARE GLUCOSEon 02-18 Glucose [Mass/Vol] 135 mg/dL Critically high 74-106 [facility] Comment on above: Performed By: #### P OCGLUC #### [facility] [address] [address] [address] Darline Starr Glucose [Mass/Vol] 138 mg/dL Critically high 74-106 [facility] Comment on above: Performed By: #### P THINT #### [facility] [address] [place] [address] Dr. Darline Starr Glucose [Mass/Vol] 191 mg/dL Critically high -106 [facility] Comment on above: Performed By: #### P OCGLUC #### [facility] [address] [place] [address] Dr. Darline Starr PROF 14(COMP METB)on 022 Albumin [Mass/Vol] 2.5 g/dL Critically low 3.4-5.[address] [facility] Comment on above: Performed By: #### C K #### [facility] [address] [place] [address] Dr. Darline Starr Albumin/Globulin [Mass ratio] 0.7 {ratio} Normal [facility] Comment on above: Performed By: #### C K #### [facility] [address] [place] [address] Dr. Darline Starr ALP [Catalytic activity/Vol] 84 U/L Normal 46-116 [facility] Comment on above: Performed By: #### C K #### [facility] [address] [place] [address] Dr. Darline Starr ALT [Catalytic activity/Vol] 29 U/L Normal 16-63 [facility] Comment on above: Performed By: #### C K #### [facility] [address] [place] [address] Dr. Darline Starr Anion gap [Moles/Vol] 11.4 mmol/L Normal [facility] Comment on above: Performed By: #### C K #### [facility] [address] [place] [address] Dr. Darline Starr AST [Catalytic activity/Vol] 21 U/L Normal 15-37 [facility] Comment on above: Performed By: #### C K #### [facility] [address] [address] [address] Darline Starr Bilirubin [Mass/Vol] 0.3 mg/dL Normal 0.2-1.0 [facility] Comment on above: Performed By: #### C K #### [facility] [address] [address] [address] Darline Starr Calcium [Mass/Vol] 8.4 mg/dL Critically low 8.5-10.1 Th e [facility] Comment on above: Performed By: #### C K #### [facility] [address] [place] [address] Dr. Darline Starr Chloride [Moles/Vol] 104 mmol/L Normal 98-107 [facility] Comment on above: Performed By: #### C K #### [facility] [address] [place] [address] Dr. Darline Starr CO2 [Moles/Vol] 25.3 mmol/L Normal 21.0-32.0 [facility] Comment on above: Performed By: #### C K #### [facility] [address] [place] [address] Dr. Darline Starr Creatinine [Mass/Vol] 1.60 mg/dL Critically high 0.70-1.30 [facility] Comment on above: Performed By: #### C K #### [facility] [address] [place] [address] Dr. Darline Starr EGFR-AF TURKISH 51 mL/min/1.73m2 Critically low >=60 [facility] Comment on above: Performed By: #### C K #### [facility] [address] [place] [address] Dr. Darline Starr EGFR-NON AF TURKISH 42 mL/min/1.73m2 Critically low >=60 [facility] Comment on above: Performed By: #### C K #### [facility] [address] [place] [address] Dr. Darline Starr Globulin (S) [Mass/Vol] 3.8 g/dL Normal [facility] Comment on above: Performed By: #### C K #### [facility] [address] [place] [address] Dr. Darline Starr Glucose [Mass/Vol] 138 mg/dL Critically high 74-106 [facility] Comment on above: Performed By: #### C K #### [facility] [address] [place] [address] Dr. Darline Starr Potassium [Moles/Vol] 3.7 mmol/L Normal 3.5-5.1 [facility] Comment on above: Performed By: #### C K #### [facility] [address] [place] [address] Dr. Darline Starr Protein [Mass/Vol] 6.3 g/dL Critically low 6.4-8.[address] [facility] Comment on above: Performed By: #### C K #### [facility] [address] [place] [address] Dr. Darline Starr Sodium [Moles/Vol] 137 mmol/L Normal 136-145 [facility] Comment on above: Performed By: #### C K #### [facility] [address] [place] [address] Dr. Darline Starr Urea nitrogen [Mass/Vol] 22.0 mg/dL Critically high 7.0-18.0 [facility] Comment on above: Performed By: #### C K #### [facility] [address] [place] [address] Dr. Darline tSarr Urea nitrogen/Creatinine [Mass ratio] 13.8 mg/mg Normal [facility] Comment on above: Performed By: #### C K #### [facility] [address] [place] [address] Dr. Darline Starr CBC AUTO DIFFon 03-10-2022 BASO # 0.0 103/ul Normal 0.0-0.1 [facility] Comment on above: Performed By: #### M ALBCRL #### [facility] [address] [place] [address] Dr. Darline Starr Basophils/100 WBC (Bld) 0.2 % Normal 0.2-2.0 [facility] Comment on above: Performed By: #### M ALBCRL #### [facility] [address] [place] [address] Dr. Darline Starr EO # 0.2 103/ul Normal 0.0-0.7 [facility] Comment on above: Performed By: #### M ALBCRL #### [facility] [address] [place] [address] Dr. Darline Starr Eosinophils/100 WBC (Bld) 1.4 % Normal 0.9-7.0 [facility] Comment on above: Performed By: #### M ALBCRL #### [facility] [address] [place] [address] Dr. Darline Starr Erythrocyte distribution width (RBC) [Ratio] 13.4 % Normal 11.0-15.0 [facility] Comment on above: Performed By: #### M ALBCRL #### [facility] [address] [place] [address] Dr. Darline Starr Hematocrit (Bld) [Volume fraction] 38.1 % Critically low 42.0-54.0 [facility] Comment on above: Performed By: #### M ALBCRL #### [facility] [address] [place] [address] Dr. Darline Starr Hemoglobin (Bld) [Mass/Vol] 12.7 g/dL Critically low 14.0-18.0 [facility] Comment on above: Performed By: #### M ALBCRL #### [facility] [address] [place] [address] Dr. Darline Starr IG # 0.07 10e3/ul Critically high 0.00-0.[address] [facility] Comment on above: Performed By: #### M ALBCRL #### [facility] [address] [place] [address] Dr. Darline Starr IG % 0.5 % Normal 0.0-0.5 [facility] Comment on above: Performed By: #### M ALBCRL #### [facility] [address] [address] [address] Darline Starr LYMPH # 1.6 103/ul Normal 1.2-3.8 [facility] Comment on above: Performed By: #### M ALBCRL #### [facility] [address] [address] [address] Darline Starr Lymphocytes/100 WBC (Bld) 12.7 % Critically low 20.5-60.0 [facility] Comment on above: Performed By: #### M ALBCRL #### [facility] [address] [address] [address] Darline Starr MANUAL DIFF REQ NO Normal [facility] Comment on above: Performed By: #### M ALBCRL #### [facility] [address] [place] [address] Dr. Darline Starr MCH (RBC) [Entitic mass] 31.8 pg Normal 25.9-34.0 [facility] Comment on above: Performed By: #### M ALBCRL #### [facility] [address] [place] [address] Dr. Darline Starr MCHC (RBC) [Mass/Vol] 33.3 g/dL Normal 29.9-35.2 [facility] Comment on above: Performed By: #### M ALBCRL #### [facility] [address] [place] [address] Dr. Darline Starr MCV (RBC) [Entitic vol] 95.5 fL Critically high 80.0-94.0 [facility] Comment on above: Performed By: #### M ALBCRL #### [facility] [address] [place] [address] Dr. Darline Starr MONO # 1.2 103/ul Critically high 0.3-0.8 [facility] Comment on above: Performed By: #### M ALBCRL #### [facility] [address] [place] [address] Dr. Darline Starr Monocytes/100 WBC (Bld) 9.6 % Normal 1.7-12.0 [facility] Comment on above: Performed By: #### M ALBCRL #### [facility] [address] [address] [address] Darline Starr NEUT # 9.6 103/ul Critically high 1.4-6.5 [facility] Comment on above: Performed By: #### M ALBCRL #### [facility] [address] [address] [address] Darline Starr Neutrophils/100 WBC (Bld) 75.6 % Critically high 43.0-75.0 [facility] Comment on above: Performed By: #### M ALBCRL #### [facility] [address] [address] [address] Darline Starr Platelet mean volume (Bld) [Entitic vol] 9.3 fL Critically low 9.5-13.5 [facility] Comment on above: Performed By: #### M ALBCRL #### [facility] [address] [place] [address] Dr. Darline Starr PLT 197 103/ul Normal 150-450 [facility] Comment on above: Performed By: #### M ALBCRL #### [facility] [address] [address] [address] Darline Starr RBC 3.99 106/ul Critically low 4.70-6.10 [facility] Comment on above: Performed By: #### M ALBCRL #### [facility] [address] [address] [address] Darline Starr WBC 12.8 103/ul Critically high 4.0-11.0 [facility] Comment on above: Performed By: #### M ALBCRL #### [facility] [address] [place] [address] ABD/PELV W CONon [...] QUIANA LEBLANC Date: 2022-03-10 06:20 Normal [facility] CULTURE URINEon 03-10-2022 CULTURE URINE Culture Observations : VERY LIGHT GROWTH OF MIXED SKIN MAT. NO POTENTIAL PATHOGENS SEEN. Normal [facility] Comment on above: Performed By: #### P OCGLUC #### [facility] [address] [place] [address] Dr. Darline Starr Covid-19 PCR (CVDTB)on 02-18 SARS-CoV-2 (COVID-19) RNA MILDRED+probe Ql (Unsp spec) Not detected Normal NOT DETECTED [facility] Comment on above: Result Comment: When [...] for this test is supported by the Portal of Health and Human Service's declaration that [...] used). Performed By: #### P OCGLUC #### [facility] [address] [place] [address] Dr. Darline Starr ER URINE PROFILEon 2 Bilirubin Ql (U) Negative Normal NEGATIVE [facility] Comment on above: Performed By: #### P OCGLUC #### [facility] [address] [place] [address] Dr. Darline Starr Clarity (U) CLEAR Normal CLEAR [facility] Comment on above: Performed By: #### P OCGLUC #### [facility] [address] [place] [address] Dr. Darline Starr Color (U) LT. YELLOW Normal YELLOW [facility] Comment on above: Performed By: #### P OCGLUC #### [facility] [address] [place] [address] Dr. Darline Starr ERUAHD A micrscopic examination will be performed if indicated. Normal [facility] Comment on above: Performed By: #### P OCGLUC #### [facility] [address] [place] [address] Dr. Darline Starr Glucose Ql (U) Negative Normal NEGATIVE [facility] Comment on above: Performed By: #### P OCGLUC #### [facility] [address] [place] [address] Dr. Darline Starr Hemoglobin Ql (U) TRACE-INTACT Abnormal NEGATIVE [facility] Comment on above: Performed By: #### P OCGLUC #### [facility] [address] [place] [address] Dr. Darline Starr Ketones Ql (U) Negative Normal NEGATIVE [facility] Comment on above: Performed By: #### P OCGLUC #### [facility] [address] [place] [address] Dr. Darline Starr LEUKOCYTES Negative Normal NEGATIVE [facility] Comment on above: Performed By: #### P OCGLUC #### [facility] [address] [address] [address] Darline Starr Nitrite Ql (U) Negative Normal NEGATIVE [facility] Comment on above: Performed By: #### P OCGLUC #### [facility] [address] [address] [address] Darline Starr pH (U) 6.0 [pH] Normal 5-9 [facility] Comment on above: Performed By: #### P OCGLUC #### [facility] [address] [address] [address] Darline Starr SPEC GRAVITY 1.015 Normal 1.005-<=1.025 [facility] Comment on above: Performed By: #### P OCGLUC #### [facility] [address] [place] [address] Dr. Darline Starr UA PROTEIN TRACE Normal NEGATIVE/ TRACE [facility] Comment on above: Performed By: #### P OCGLUC #### [facility] [address] [address] [address] Darline Starr UR MICRO IND INDICATED Normal [facility] Comment on above: Performed By: #### P OCGLUC #### [facility] [address] [address] [address] Darline Starr Urobilinogen Qn (U) 0.2 {Jess'U}/dL Normal 0.2 - 1. 0 [facility] Comment on above: Performed By: #### P OCGLUC #### [facility] [address] [place] [address] Dr. Darline Starr GLYCOHEMOGLOBIN A1Con 2021 ADA RECOMMENDATION SEE BELOW Normal [facility] Comment on above: Result Comment: ADA RECOMMENDED LIMIT 4.0 - 6.0 ADA THERAPEUTIC TARGET < 7.0 ACTION SUGGESTED > 7.0 Performed By: #### P OCGLUC #### [facility] [address] [place] [address] Dr. Darline Starr Glucose [Mass/Vol] 131 mg/dL Normal [facility] Comment on above: Performed By: #### P OCGLUC #### [facility] [address] [address] [address] Darline Starr HbA1c (Bld) [Mass fraction] 6.2 % Normal 4.5-6.2 [facility] Comment on above: Performed By: #### P OCGLUC #### [facility] [address] [place] [address] Dr. Darline Starr HEMOGLOBIN AND HEMATOCRITon 03-10-2022 Hematocrit (Bld) [Volume fraction] 35.3 % Critically low 42.0-54.0 [facility] Comment on above: Performed By: #### P THINT #### [facility] [address] [place] [address] Dr. Darline Starr Hemoglobin (Bld) [Mass/Vol] 11.8 g/dL Critically low 14.0-18.0 [facility] Comment on above: Performed By: #### P THINT #### [facility] [address] [place] [address] Dr. Darline Starr Hematocrit (Bld) [Volume fraction] 34.0 % Critically low 42.0-54.0 [facility] Comment on above: Performed By: #### C K #### [facility] [address] [place] [address] Dr. Darline Starr Hemoglobin (Bld) [Mass/Vol] 11.2 g/dL Critically low 14.0-18.0 [facility] Comment on above: Performed By: #### C K #### [facility] [address] [place] [address] Dr. Darline Starr Hematocrit (Bld) [Volume fraction] 34.7 % Critically low 42.0-54.0 [facility] Comment on above: Performed By: #### H GBHCT #### [facility] [address] [place] [address] Dr. Darline Starr Hemoglobin (Bld) [Mass/Vol] 11.7 g/dL Critically low 14.0-18.0 [facility] Comment on above: Performed By: #### H GBHCT #### [facility] [address] [place] [address] Dr. Darline Starr POINT OF CARE GLUCOSEon 02-18 Glucose [Mass/Vol] 245 mg/dL Critically high 74-106 [facility] Comment on above: Performed By: #### P OCGLUC #### [facility] [address] [address] [address] Darline Starr Glucose [Mass/Vol] 171 mg/dL Critically high 74-106 [facility] Comment on above: Performed By: #### M ALBCRL #### [facility] [address] [address] [address] Darline Starr Glucose [Mass/Vol] 67 mg/dL Critically low 74-106 [facility] Comment on above: Performed By: #### P OCGLUC #### [facility] [address] [place] [address] Dr. Darline Starr Glucose [Mass/Vol] 65 mg/dL Critically low 74-106 [facility] Comment on above: Performed By: #### P OCGLUC #### [facility] [address] [address] [address] Darline Starr Glucose [Mass/Vol] 264 mg/dL Critically high -106 [facility] Comment on above: Performed By: #### P OCGLUC #### [facility] [address] [address] [address] Darline Starr PROF CHEM 8 (BAS METB)on Anion gap [Moles/Vol] 10.2 mmol/L Normal [facility] Comment on above: Performed By: #### P THINT #### [facility] [address] [address] [address] Darline Starr Calcium [Mass/Vol] 8.5 mg/dL Normal 8.5-10.1 [facility] Comment on above: Performed By: #### P THINT #### [facility] [address] [place] [address] Dr. Darline Starr Chloride [Moles/Vol] 104 mmol/L Normal 98-107 [facility] Comment on above: Performed By: #### P THINT #### [facility] [address] [place] [address] Dr. Darline Starr CO2 [Moles/Vol] 27.7 mmol/L Normal 21.0-32.0 [facility] Comment on above: Performed By: #### P THINT #### [facility] [address] [address] [address] Darline Starr Creatinine [Mass/Vol] 1.53 mg/dL Critically high 0.70-1.30 [facility] Comment on above: Performed By: #### P THINT #### [facility] [address] [address] [address] Darline Starr EGFR-AF TURKISH 53 mL/min/1.73m2 Critically low >=60 [facility] Comment on above: Performed By: #### P THINT #### [facility] [address] [address] [address] Darline Starr EGFR-NON AF TURKISH 44 mL/min/1.73m2 Critically low >=60 [facility] Comment on above: Performed By: #### P THINT #### [facility] [address] [address] [address] Darline Starr Glucose [Mass/Vol] 117 mg/dL Critically high 74-106 [facility] Comment on above: Performed By: #### P THINT #### [facility] [address] [place] [address] Dr. Darline Starr Potassium [Moles/Vol] 3.9 mmol/L Normal 3.5-5.1 [facility] Comment on above: Performed By: #### P THINT #### [facility] [address] [address] [address] Darline Starr Sodium [Moles/Vol] 138 mmol/L Normal 136-145 [facility] Comment on above: Performed By: #### P THINT #### [facility] [address] [address] [address] Darline Starr Urea nitrogen [Mass/Vol] 21.0 mg/dL Critically high 7.0-18.0 [facility] Comment on above: Performed By: #### P THINT #### [facility] [address] [address] [address] Darline Starr Urea nitrogen/Creatinine [Mass ratio] 13.7 mg/mg Normal [facility] Comment on above: Performed By: #### P THINT #### [facility] [address] [place] [address] Dr. Darlien Starr PROTIMEon 03-10-2022 INR Coag (PPP) [Relative time] 1.02 {INR} Normal [facility] Comment on above: Performed By: #### M ALBCRL #### [facility] [address] [place] [address] Dr. Darline Starr INR GUIDELINES SEE BELOW Normal [facility] Comment on above: Result Comment: JENISE RED INR: 2.0 - 3.0 CONDITIONS NOT LISTED BELOW 2.5 - 3.5 FOR PROSTHETIC HEART VALVE REPLACEMENT 2.5 - 3.5 RECURRENT THROMBOSIS Performed By: #### M ALBCRL #### [facility] [address] [place] [address] Dr. Darline Starr PT Coag (PPP) [Time] 11.0 s Normal 9.0-11.6 [facility] Comment on above: Performed By: #### M ALBCRL #### [facility] [address] [place] [address] Dr. Darline Starr PTTon 03-10-2022 aPTT Coag (Bld) [Time] 31.8 s Normal 22.3-36.2 [facility] Comment on above: Performed By: #### M ALBCRL #### [facility] [address] [place] [address] Dr. Darline Starr URINE MICROSCOPIC ONLYon BACTERIA SMALL Abnormal NONE SEEN [facility] Comment on above: Performed By: #### P OCGLUC #### [facility] [address] [place] [address] Dr. Darline Starr Bacteria identified Cx Nom (U) INDICATED Normal [facility] Comment on above: Performed By: #### P OCGLUC #### [facility] [address] [place] [address] Dr. Darline Starr CAST NONE SEEN Normal NONE SEEN [facility] Comment on above: Performed By: #### P OCGLUC #### [facility] [address] [address] [address] Darline Starr Crystals LM Nom (Urine sed) NONE SEEN Normal NONE SEEN [facility] Comment on above: Performed By: #### P OCGLUC #### [facility] [address] [address] [address] Darline Starr Epithelial cells LM Ql (Urine sed) RARE Normal NONE SEEN /RARE [facility] Comment on above: Performed By: #### P OCGLUC #### [facility] [address] [address] [address] Darline Starr MUCOUS NONE SEEN Normal NONE SEEN [facility] Comment on above: Performed By: #### P OCGLUC #### [facility] [address] [place] [address] Dr. Darline Starr RBC 2-5 Abnormal 0-2 [facility] Comment on above: Performed By: #### P OCGLUC #### [facility] [address] [place] [address] Dr. Darline Starr WBC 5-10 Abnormal NONE SEEN [facility] Comment on above: Performed By: #### P OCGLUC #### [facility] [address] [place] [address] Dr. Darline Starr ICD REMOTE CHECKon 2 AV Delay Adaptive Paced Minimum (ms) 170 ms [facility] AV Delay Adaptive Sensed Minimum (ms) 120 ms [facility] AV Delay Paced (ms) 90 ms [facility] AV Delay Sensed (ms) 90 ms [facility] Battery Voltage 3.01 V [facility] Johan LV Pacing Amplitude (volts) 2.5 V [facility] Johan LV Pacing Polarity BI [facility] Johan LV Pacing Pulse Width (ms) 0.5 ms [facility] Johan RA Pacing Amplitude (volts) 2 V [facility] Johan RA Pacing Polarity BI [facility] Johan RA Pacing Pulse Width (ms) 0.5 ms [facility] Johan RA Sensing Amplitude (mvolts) 0.5 mV [facility] RA Sensing Polarity BI [facility] RV Pacing Amplitude (volts) 1.5 V [facility] RV Pacing Polarity BI [facility] RV Pacing Pulse Width (ms) 0.5 ms [facility] RV Sensing Amplitude (mvolts) 0.5 mV [facility] RV Sensing Polarity BI [facility] Detection Configuration (Vent) 1 - Zone [facility] ICD FastVT DetectionStatus DISABLED [facility] ICD-AMS EPISODES 170 {beats}/min [facility] ICD-ATP Episodes (Vent) 0 [facility] ICD-Device Mfg Other [facility] ICD-Fast Ventricular Tachycardia 18 [facility] ICD-Fast Ventricular Tachycardia 1 [facility] ICD-LEADIMPEDANCEATR IAL 330 ohm [facility] ICD-Percent Pacing (Atrial) 78 % [facility] ICD-Shocks Aborted (Vent) 0 [facility] [id number] 0 [facility] ICD-SHOCKSABORTED 0 [facility] ICD-SHOCKSDELIVEREDV ENTRICULAR 0 [facility] ICD-Ventricular Fibrillation 0 [facility] ICD-VVDELAY_MS 45 ms [facility] Implant Date 10/18/2021 [facility] Lead Impedance (LV) 790 ohm [facility] Lead Impedance (RV) 400 ohm [facility] Lead Impedance High Voltage 61 ohm [facility] Lead1 Mfg STJ [facility] Lead2 Mfg STJ [facility] Lead3 Mfg STJ [facility] Location LV [facility] Location RA [facility] Location RV [facility] Lower Rate (bpm) 70 {beats}/min [facility] Max Sensor Rate (bpm) 110 {beats}/min [facility] MDT_PROG_TACHY_ZONE_ DETECTIONS_STATUS ENABLED [facility] Model [id number] Avon HF [facility] Model 1458Q Quartet [facility] Model 2088TC Tendril STS [facility] Model 7122Q Durata SJ4 [facility] Pacing Mode DDDR [facility] Serial Number [id number] [facility] Serial Number [id number] [facility] Serial Number [id number] [facility] Serial Number [id number] [facility] Test Charge Energy 40 J [facility] Therapy Status (Vent) Enabled [facility] Thresh LV Capture Amplitude (volts) 1 V [facility] LV Capture Duration (ms) 0.5 ms [facility] Thresh RA Capture Amplitude (volts) 0.375 V [facility] Thresh RA Capture Duration (ms) 0.5 ms [facility] Thresh RA Sensing Amplitude (mvolts) 2 mV [facility] Thresh RV Capture Amplitude (VOLTS) 0.5 V [facility] RV Capture Duration (MS) 0.5 ms [facility] Thresh RV Sensing Amplitude (MVOLTS) 12 mV [facility] Tracking Rate (bpm) 130 {beats}/min [facility] VF Zone Detection Interval 300 ms [facility] VF Zone Therapy Configuration 0 ATP(s) + 6 Shock(s) [facility] No Panel Informationon 02-12 BLANK _ [facility] Implant Date 03/23/2014 [facility] MICROALBUMIN/ CREATININE RAT IOon 02-09-2022 Albumin, Urine 3.0 ug/mL Normal Not Estab. [facility] Comment on above: Performed By: #### M ALBCRL #### [facility] [address] [place] [address] Dr. Darline Starr Albumin/ Creatinine Ratio 4 mg/g creat Normal 0-29 [facility] Comment on above: Result Comment: Norm al: 0 - 29 Moderately increased: 30 - 300 Severely increased: >300 Performed By: #### M ALBCRL #### [facility] [address] [place] [address] Dr. Darline Starr Creatinine, Urine 73.0 mg/dL Normal Not Estab. [facility] Comment on above: Performed By: #### M ALBCRL #### [facility] [address] [address] [address] Darline Starr CBC AUTO DIFFon 02-08-2022 BASO # 0.1 103/ul Normal 0.0-0.1 [facility] Comment on above: Performed By: #### P THINT #### [facility] [address] [address] [address] Darline Starr Basophils/100 WBC (Bld) 0.8 % Normal 0.2-2.0 [facility] Comment on above: Performed By: #### P THINT #### [facility] [address] [place] [address] Dr. Darline Starr EO # 0.2 103/ul Normal 0.0-0.7 [facility] Comment on above: Performed By: #### P THINT #### [facility] [address] [place] [address] Dr. Darline Starr Eosinophils/100 WBC (Bld) 2.2 % Normal 0.9-7.0 [facility] Comment on above: Performed By: #### P THINT #### [facility] [address] [place] [address] Dr. Darline Starr Erythrocyte distribution width (RBC) [Ratio] 13.9 % Normal 11.0-15.0 [facility] Comment on above: Performed By: #### P THINT #### [facility] [address] [place] [address] Dr. Darline Starr Hematocrit (Bld) [Volume fraction] 42.4 % Normal 42.0-54.0 [facility] Comment on above: Performed By: #### P THINT #### [facility] [address] [place] [address] Dr. Darline Starr Hemoglobin (Bld) [Mass/Vol] 14.0 g/dL Normal 14.0-18.0 [facility] Comment on above: Performed By: #### P THINT #### [facility] [address] [place] [address] Dr. Darline Starr IG # 0.03 10e3/ul Normal 0.00-0.03 [facility] Comment on above: Performed By: #### P THINT #### [facility] [address] [place] [address] Dr. Darline Starr IG % 0.4 % Normal 0.0-0.5 [facility] Comment on above: Performed By: #### P THINT #### [facility] [address] [place] [address] Dr. Darline Starr LYMPH # 1.4 103/ul Normal 1.2-3.8 [facility] Comment on above: Performed By: #### P THINT #### [facility] [address] [place] [address] Dr. Darline Starr Lymphocytes/100 WBC (Bld) 18.3 % Critically low 20.5-60.0 [facility] Comment on above: Performed By: #### P THINT #### [facility] [address] [address] [address] Darline Starr MANUAL DIFF REQ NO Normal [facility] Comment on above: Performed By: #### P THINT #### [facility] [address] [address] [address] Darline Starr MCH (RBC) [Entitic mass] 32.0 pg Normal 25.9-34.0 [facility] Comment on above: Performed By: #### P THINT #### [facility] [address] [address] [address] Darline Starr MCHC (RBC) [Mass/Vol] 33.0 g/dL Normal 29.9-35.2 [facility] Comment on above: Performed By: #### P THINT #### [facility] [address] [place] [address] Dr. Darline Starr MCV (RBC) [Entitic vol] 97.0 fL Critically high 80.0-94.0 [facility] Comment on above: Performed By: #### P THINT #### [facility] [address] [place] [address] Dr. Darline Starr MONO # 0.6 103/ul Normal 0.3-0.8 [facility] Comment on above: Performed By: #### P THINT #### [facility] [address] [place] [address] Dr. Darline Starr Monocytes/100 WBC (Bld) 7.4 % Normal 1.7-12.0 [facility] Comment on above: Performed By: #### P THINT #### [facility] [address] [place] [address] Dr. Darline Starr NEUT # 5.6 103/ul Normal 1.4-6.5 [facility] Comment on above: Performed By: #### P THINT #### [facility] [address] [place] [address] Dr. Darline Starr Neutrophils/100 WBC (Bld) 70.9 % Normal 43.0-75.0 [facility] Comment on above: Performed By: #### P THINT #### [facility] [address] [address] [address] Darline Starr Platelet mean volume (Bld) [Entitic vol] 9.3 fL Critically low 9.5-13.5 [facility] Comment on above: Performed By: #### P THINT #### [facility] [address] [address] [address] Darline Starr PLT 188 103/ul Normal 150-450 [facility] Comment on above: Performed By: #### P THINT #### [facility] [address] [address] [address] Darline Starr RBC 4.37 106/ul Critically low 4.70-6.10 [facility] Comment on above: Performed By: #### P THINT #### [facility] [address] [address] [address] Darline Starr WBC 7.9 103/ul Normal 4.0-11.0 [facility] Comment on above: Performed By: #### P THINT #### [facility] [address] [address] [address] Darline Starr RENAL FUNCTION PANELon 02-08 Albumin [Mass/Vol] 3.4 g/dL Normal 3.4-5.0 [facility] Comment on above: Performed By: #### P OCGLUC #### [facility] [address] [address] [address] Darline Starr Calcium [Mass/Vol] 8.7 mg/dL Normal 8.5-10.1 [facility] Comment on above: Performed By: #### P OCGLUC #### [facility] [address] [address] [address] Darline Starr Chloride [Moles/Vol] 104 mmol/L Normal 98-107 [facility] Comment on above: Performed By: #### P OCGLUC #### [facility] [address] [address] [address] Darline Starr CO2 [Moles/Vol] 27.3 mmol/L Normal 21.0-32.0 [facility] Comment on above: Performed By: #### P OCGLUC #### [facility] [address] [address] [address] Darline Starr Creatinine [Mass/Vol] 1.63 mg/dL Critically high 0.70-1.30 [facility] Comment on above: Performed By: #### P OCGLUC #### [facility] [address] [address] [address] Darline Starr EGFR-AF TURKISH 50 mL/min/1.73m2 Critically low >=60 [facility] Comment on above: Performed By: #### P OCGLUC #### [facility] [address] [address] [address] Darline Starr EGFR-NON AF TURKISH 41 mL/min/1.73m2 Critically low >=60 [facility] Comment on above: Performed By: #### P OCGLUC #### [facility] [address] [address] [address] Darline Starr Glucose [Mass/Vol] 121 mg/dL Critically high 74-106 [facility] Comment on above: Performed By: #### P OCGLUC #### [facility] [address] [address] [address] Darline Starr Phosphate [Mass/Vol] 3.4 mg/dL Normal 2.6-4.7 [facility] Comment on above: Performed By: #### P OCGLUC #### [facility] [address] [address] [address] Darline Starr Potassium [Moles/Vol] 4.2 mmol/L Normal 3.5-5.1 [facility] Comment on above: Performed By: #### P OCGLUC #### [facility] [address] [address] [address] Darline Starr Sodium [Moles/Vol] 139 mmol/L Normal 136-145 [facility] Comment on above: Performed By: #### P OCGLUC #### [facility] [address] [address] [address] Darline Starr Urea nitrogen [Mass/Vol] 21.0 mg/dL Critically high 7.0-18.0 [facility] Comment on above: Performed By: #### P OCGLUC #### [facility] [address] [place] [address] Dr. Darline Starr ICD REMOTE CHECKon 2 AV Delay Adaptive Paced Minimum (ms) 170 ms [facility] AV Delay Adaptive Sensed Minimum (ms) 120 ms [facility] AV Delay Paced (ms) 90 ms [facility] AV Delay Sensed (ms) 90 ms [facility] Battery Voltage 3.02 V [facility] Johan LV Pacing Amplitude (volts) 2.5 V [facility] LV Pacing Polarity BI [facility] LV Pacing Pulse Width (ms) 0.5 ms [facility] RA Pacing Amplitude (volts) 2 V [facility] RA Pacing Polarity BI [facility] Johan RA Pacing Pulse Width (ms) 0.5 ms [facility] Joh[facility] RA Sensing Amplitude (mvolts) 0.5 mV [facility] RA Sensing Polarity BI [facility] Johan RV Pacing Amplitude (volts) 1.5 V [facility] Joh[facility] RV Pacing Polarity BI [facility] Johan RV Pacing Pulse Width (ms) 0.5 ms [facility] Joh[facility] RV Sensing Amplitude (mvolts) 0.5 mV [facility] Joh[facility] RV Sensing Polarity BI [facility] Detection Configuration (Vent) 1 - Zone [facility] ICD FastVT DetectionStatus DISABLED [facility] ICD-AMS EPISODES 170 {beats}/min [facility] ICD-ATP Episodes (Vent) 0 [facility] ICD-Device Mfg Other [facility] ICD-Fast Ventricular Tachycardia 18 [facility] ICD-Fast Ventricular Tachycardia 1 [facility] ICD-LEADIMPEDANCEATR IAL 330 ohm [facility] ICD-Percent Pacing (Atrial) 78 % [facility] ICD-Shocks Aborted (Vent) 0 [facility] [id number] 0 [facility] ICD-SHOCKSABORTED 0 [facility] ICD-SHOCKSDELIVEREDV ENTRICULAR 0 [facility] ICD-Ventricular Fibrillation 0 [facility] ICD-VVDELAY_MS 45 ms [facility] Implant Date 10/18/2021 [facility] Lead Impedance (LV) 800 ohm [facility] Lead Impedance (RV) 440 ohm [facility] Lead Impedance High Voltage 61 ohm [facility] Lead1 Mfg STJ [facility] Lead2 Mfg STJ [facility] Lead3 Mfg STJ [facility] Location LV [facility] Location RA [facility] Location RV [facility] Lower Rate (bpm) 70 {beats}/min [facility] Max Sensor Rate (bpm) 110 {beats}/min [facility] MDT_PROG_TACHY_ZONE_ DETECTIONS_STATUS ENABLED [facility] Model [id number] Avon HF [facility] Model 1458Q Quartet [facility] Model 2088TC Tendril STS [facility] Model 7122Q Durata SJ4 [facility] Pacing Mode DDDR [facility] Serial Number [id number] [facility] Serial Number [id number] [facility] Serial Number [id number] [facility] Serial Number [id number] [facility] Test Charge Energy 40 J [facility] Therapy Status (Vent) Enabled [facility] Thresh LV Capture Amplitude (volts) 1 V [facility] Thresh LV Capture Duration (ms) 0.5 ms [facility] Thresh RA Capture Amplitude (volts) 0.375 V [facility] Thresh RA Capture Duration (ms) 0.5 ms [facility] Thresh RA Sensing Amplitude (mvolts) 2 mV [facility] Thresh RV Capture Amplitude (VOLTS) 0.5 V [facility] Thresh RV Capture Duration (MS) 0.5 ms [facility] Thresh RV Sensing Amplitude (MVOLTS) 12 mV [facility] Tracking Rate (bpm) 130 {beats}/min [facility] VF Zone Detection Interval 300 ms [facility] VF Zone Therapy Configuration 0 ATP(s) + 6 Shock(s) [facility] No Panel Informationon 12-29 BLANK _ [facility] Implant Date 03/23/2014 [facility] ICD CLINIC CHECKon 2 AV Delay Adaptive Paced Minimum (ms) 170 ms [facility] AV Delay Adaptive Rate Maximum (bpm) 130 {beats}/min [facility] AV Delay Adaptive Rate Minimum (bpm) 90 {beats}/min [facility] AV Delay Adaptive Sensed Minimum (ms) 120 ms [facility] AV Delay Adaptive Status Medium [facility] AV Delay Paced (ms) 90 ms [facility] AV Delay Sensed (ms) 90 ms [facility] Johan LV Pacing Amplitude (volts) 2.5 V [facility] Johan LV Pacing Polarity BI [facility] LV Pacing Pulse Width (ms) 0.5 ms [facility] Johan RA Pacing Amplitude (volts) 2 V [facility] RA Pacing Polarity BI [facility] Johan RA Pacing Pulse Width (ms) 0.5 ms [facility] Johan RA Sensing Amplitude (mvolts) 0.5 mV [facility] Johan RA Sensing Blanking Period (ms) 110 ms [facility] RA Sensing Polarity BI [facility] RA Sensing Refractory Period (ms) 190 ms [facility] RV Pacing Amplitude (volts) 1.5 V [facility] RV Pacing Polarity BI [facility] RV Pacing Pulse Width (ms) 0.5 ms [facility] Johan RV Sensing Amplitude (mvolts) 0.5 mV [facility] Johan RV Sensing Blanking Period (ms) 44 ms [facility] Johan RV Sensing Polarity BI [facility] Detection Configuration (Vent) 1 - Zone [facility] ICD FastVT DetectionStatus DISABLED [facility] ICD-AMS EPISODES 170 {beats}/min [facility] ICD-Johan RV Sensing Refractory Period (ms) 250 ms [facility] ICD-Device Mfg Other [facility] ICD-FALLBACKRATE_BPM 70 {beats}/min [facility] ICD-Hysteresis Rate Off [facility] ICD-LEADIMPEDANCEATR IAL 337.5 ohm [facility] ICD-Percent Pacing (Atrial) 78 % [facility] ICD-Percent Pacing (Vent) 98 % [facility] ICD-PMT Intervention Atrial Pace [facility] ICD-PVC Intervention Off [facility] ICD-Rate Modulation Acceleration Reaction Fast [facility] ICD-Rate Modulation Deceleration Medium [facility] ICD-Rate Modulation Tyrrell Auto (+2) [facility] ICD-Rate Modulation Threshold Auto (-0.5) [facility] ICD-Rhythm Normal Sinus Rhythm [facility] ICD-Shocks Aborted (Vent) 0 [facility] [id number] 0 [facility] ICD-SHOCKSABORTED 0 [facility] ICD-SHOCKSDELIVEREDV ENTRICULAR 0 [facility] Implant Date 10/18/2021 [facility] Lead Impedance (LV) 800 ohm [facility] Lead Impedance (RV) 412.5 ohm [facility] Lead Impedance High Voltage 57.375 [facility] Lead1 Mfg STJ [facility] Lead2 Mfg STJ [facility] Lead3 Mfg STJ [facility] Location LV [facility] Location RA [facility] Location RV [facility] Lower Rate (bpm) 70 {beats}/min [facility] Max Sensor Rate (bpm) 110 {beats}/min [facility] MDT_PROG_TACHY_ZONE_ DETECTIONS_STATUS ENABLED [facility] Model [id number] Avon HF [facility] Model 1458Q Quartet [facility] Model 2088TC Tendril STS [facility] Model 7122Q Durata SJ4 [facility] Pacemaker Dependent? NO [facility] Pacing Mode DDDR [facility] Serial Number [id number] [facility] Serial Number [id number] [facility] Serial Number [id number] [facility] Serial Number [id number] [facility] Therapy Status (Vent) Enabled [facility] Thresh RA Capture Amplitude (volts) 0.375 V [facility] Thresh RA Capture Duration (ms) 0.5 ms [facility] Thresh RA Sensing Amplitude (mvolts) 2 mV [facility] Thresh RV Capture Amplitude (VOLTS) 0.5 V [facility] Thresh RV Capture Duration (MS) 0.5 ms [facility] Thresh RV Sensing Amplitude (MVOLTS) 12 mV [facility] Tracking Rate (bpm) 130 {beats}/min [facility] VF Zone Detection Interval 300 ms [facility] VF Zone Therapy Configuration 1 ATP(s) + 6 Shock(s) [facility] No Panel Informationon 12-21 BLANK _ [facility] Implant Date 03/23/2014 [facility] ICD REMOTE CHECKon 2 AV Delay Adaptive Paced Minimum (ms) 170 ms [facility] AV Delay Adaptive Sensed Minimum (ms) 120 ms [facility] AV Delay Paced (ms) 90 ms [facility] AV Delay Sensed (ms) 90 ms [facility] Battery Voltage 3.05 V [facility] Johan LV Pacing Amplitude (volts) 2.5 V [facility] Johan LV Pacing Polarity BI [facility] Johan LV Pacing Pulse Width (ms) 0.5 ms [facility] Johan RA Pacing Amplitude (volts) 2 V [facility] Johan RA Pacing Polarity BI [facility] Johan RA Pacing Pulse Width (ms) 0.5 ms [facility] Johan RA Sensing Amplitude (mvolts) 0.5 mV [facility] Johan RA Sensing Polarity BI [facility] Johan RV Pacing Amplitude (volts) 1.5 V [facility] Joh[facility] RV Pacing Polarity BI [facility] Johan RV Pacing Pulse Width (ms) 0.5 ms [facility] Johan RV Sensing Amplitude (mvolts) 0.3 mV [facility] Johan RV Sensing Polarity BI [facility] Detection Configuration (Vent) 1 - Zone [facility] ICD FastVT DetectionStatus DISABLED [facility] ICD-AMS EPISODES 170 {beats}/min [facility] ICD-ATP Episodes (Vent) 0 [facility] ICD-Device Mfg Other [facility] ICD-LEADIMPEDANCEATR IAL 340 ohm [facility] ICD-Percent Pacing (Atrial) 77 % [facility] ICD-Shocks Aborted (Vent) 0 [facility] [id number] 0 [facility] ICD-SHOCKSABORTED 0 [facility] ICD-SHOCKSDELIVEREDV ENTRICULAR 0 [facility] ICD-VVDELAY_MS 45 ms [facility] Implant Date 10/18/2021 [facility] Lead Impedance (LV) 800 ohm [facility] Lead Impedance (RV) 460 ohm [facility] Lead Impedance High Voltage 57 ohm [facility] Lead1 Mfg STJ [facility] Lead2 Mfg STJ [facility] Lead3 Mfg STJ [facility] Location LV [facility] Location RA [facility] Location RV [facility] Lower Rate (bpm) 70 {beats}/min [facility] Max Sensor Rate (bpm) 110 {beats}/min [facility] MDT_PROG_TACHY_ZONE_ DETECTIONS_STATUS ENABLED [facility] Model [id number] Avon HF [facility] Model 1458Q Quartet [facility] Model 2088TC Tendril STS [facility] Model 7122Q Durata SJ4 [facility] Pacing Mode DDDR [facility] Serial Number [id number] [facility] Serial Number [id number] [facility] Serial Number [id number] [facility] Serial Number [id number] [facility] Test Charge Energy 40 J [facility] Therapy Status (Vent) Enabled [facility] Thresh LV Capture Amplitude (volts) 1 V [facility] Thresh LV Capture Duration (ms) 0.5 ms [facility] Thresh RA Capture Amplitude (volts) 0.375 V [facility] Thresh RA Capture Duration (ms) 0.5 ms [facility] Thresh RA Sensing Amplitude (mvolts) 1 mV [facility] Thresh RV Capture Amplitude (VOLTS) 0.5 V [facility] Thresh RV Capture Duration (MS) 0.5 ms [facility] Thresh RV Sensing Amplitude (MVOLTS) 1.3 mV [facility] Tracking Rate (bpm) 130 {beats}/min [facility] VF Zone Detection Interval 300 ms [facility] VF Zone Therapy Configuration 0 ATP(s) + 6 Shock(s) [facility] No Panel Informationon 12-18 BLANK _ [facility] Implant Date 03/23/2014 [facility] ICD REMOTE CHECKon 2 AV Delay Adaptive Paced Minimum (ms) 170 ms [facility] AV Delay Adaptive Sensed Minimum (ms) 120 ms [facility] AV Delay Paced (ms) 90 ms [facility] AV Delay Sensed (ms) 90 ms [facility] Battery Voltage 3.07 V [facility] Johan LV Pacing Amplitude (volts) 2.5 V [facility] Johan LV Pacing Polarity BI [facility] Johan LV Pacing Pulse Width (ms) 0.5 ms [facility] Johan RA Pacing Amplitude (volts) 2 V [facility] Johan RA Pacing Polarity BI [facility] Johan RA Pacing Pulse Width (ms) 0.5 ms [facility] Johan RA Sensing Amplitude (mvolts) 0.5 mV [facility] Johan RA Sensing Polarity BI [facility] Johan RV Pacing Amplitude (volts) 1.5 V [facility] Johan RV Pacing Polarity BI [facility] Johan RV Pacing Pulse Width (ms) 0.5 ms [facility] Johan RV Sensing Amplitude (mvolts) 0.3 mV [facility] Johan RV Sensing Polarity BI [facility] Detection Configuration (Vent) 1 - Zone [facility] ICD FastVT DetectionStatus DISABLED [facility] ICD-AMS EPISODES 170 {beats}/min [facility] ICD-ATP Episodes (Vent) 0 [facility] ICD-Device Mfg Other [facility] ICD-LEADIMPEDANCEATR IAL 340 ohm [facility] ICD-Percent Pacing (Atrial) 76 % [facility] ICD-Shocks Aborted (Vent) 0 [facility] [id number] 0 [facility] ICD-SHOCKSABORTED 0 [facility] ICD-SHOCKSDELIVEREDV ENTRICULAR 0 [facility] ICD-VVDELAY_MS 45 ms [facility] Implant Date 10/18/2021 [facility] Lead Impedance (LV) 840 ohm [facility] Lead Impedance (RV) 460 ohm [facility] Lead Impedance High Voltage 60 ohm [facility] Lead1 Mfg STJ [facility] Lead2 Mfg STJ [facility] Lead3 Mfg STJ [facility] Location LV [facility] Location RA [facility] Location RV [facility] Lower Rate (bpm) 70 {beats}/min [facility] Max Sensor Rate (bpm) 110 {beats}/min [facility] MDT_PROG_TACHY_ZONE_ DETECTIONS_STATUS ENABLED [facility] Model [id number] Avon HF [facility] Model 1458Q Quartet [facility] [facility] Model 2088TC Tendril STS [facility] Model 7122Q Durata SJ4 [facility] Pacing Mode DDDR [facility] Serial Number [id number] [facility] Serial Number [id number] [facility] Serial Number [id number] [facility] Serial Number [id number] [facility] Test Charge Energy 40 J [facility] Therapy Status (Vent) Enabled [facility] Thresh LV Capture Amplitude (volts) 1 V [facility] Thresh LV Capture Duration (ms) 0.5 ms [facility] Thresh RA Capture Amplitude (volts) 0.375 V [facility] Thresh RA Capture Duration (ms) 0.5 ms [facility] Thresh RA Sensing Amplitude (mvolts) 2.6 mV [facility] Thresh RV Capture Amplitude (VOLTS) 0.5 V [facility] Thresh RV Capture Duration (MS) 0.5 ms [facility] Thresh RV Sensing Amplitude (MVOLTS) 12 mV [facility] Tracking Rate (bpm) 130 {beats}/min [facility] VF Zone Detection Interval 300 ms [facility] VF Zone Therapy Configuration 0 ATP(s) + 6 Shock(s) [facility] AV Delay Adaptive Paced Minimum (ms) 170 ms [facility] AV Delay Adaptive Sensed Minimum (ms) 120 ms [facility] AV Delay Paced (ms) 90 ms [facility] AV Delay Sensed (ms) 90 ms [facility] Battery Voltage 3.07 V [facility] Johan LV Pacing Amplitude (volts) 2.5 V [facility] Johan LV Pacing Polarity BI [facility] Johan LV Pacing Pulse Width (ms) 0.5 ms [facility] Johan RA Pacing Amplitude (volts) 2 V [facility] Johan RA Pacing Polarity BI [facility] Johan RA Pacing Pulse Width (ms) 0.5 ms [facility] Johan RA Sensing Amplitude (mvolts) 0.5 mV [facility] Johan RA Sensing Polarity BI [facility] Johan RV Pacing Amplitude (volts) 1.5 V [facility] Johan RV Pacing Polarity BI [facility] Johan RV Pacing Pulse Width (ms) 0.5 ms [facility] Johan RV Sensing Amplitude (mvolts) 0.3 mV [facility] Johan RV Sensing Polarity BI [facility] Detection Configuration (Vent) 1 - Zone [facility] ICD FastVT DetectionStatus DISABLED [facility] ICD-AMS EPISODES 170 {beats}/min [facility] ICD-ATP Episodes (Vent) 0 [facility] ICD-Device Mfg Other [facility] ICD-LEADIMPEDANCEATR IAL 340 ohm [facility] ICD-Percent Pacing (Atrial) 76 % [facility] ICD-Shocks Aborted (Vent) 0 [facility] [id number] 0 [facility] ICD-SHOCKSABORTED 0 [facility] ICD-SHOCKSDELIVEREDV ENTRICULAR 0 [facility] ICD-VVDELAY_MS 45 ms [facility] Implant Date 10/18/2021 [facility] Lead Impedance (LV) 840 ohm [facility] Lead Impedance (RV) 460 ohm [facility] Lead Impedance High Voltage 60 ohm [facility] Lead1 Mfg STJ [facility] Lead2 Mfg STJ [facility] Lead3 Mfg STJ [facility] Location LV [facility] Location RA [facility] Location RV [facility] Lower Rate (bpm) 70 {beats}/min [facility] Max Sensor Rate (bpm) 110 {beats}/min [facility] MDT_PROG_TACHY_ZONE_ DETECTIONS_STATUS ENABLED [facility] Model [id number] Avon HF [facility] Model 1458Q Quartet [facility] Model 2088TC Tendril STS [facility] Model 7122Q Durata SJ4 [facility] Pacing Mode DDDR [facility] Serial Number [id number] [facility] Serial Number [id number] [facility] Serial Number [id number] [facility] Serial Number [id number] [facility] Test Charge Energy 40 J [facility] Therapy Status (Vent) Enabled [facility] Thresh LV Capture Amplitude (volts) 1 V [facility] Thresh LV Capture Duration (ms) 0.5 ms [facility] Thresh RA Capture Amplitude (volts) 0.375 V [facility] Thresh RA Capture Duration (ms) 0.5 ms [facility] Thresh RA Sensing Amplitude (mvolts) 2.6 mV [facility] Thresh RV Capture Amplitude (VOLTS) 0.5 V [facility] Thresh RV Capture Duration (MS) 0.5 ms [facility] Thresh RV Sensing Amplitude (MVOLTS) 12 mV [facility] Tracking Rate (bpm) 130 {beats}/min [facility] VF Zone Detection Interval 300 ms [facility] VF Zone Therapy Configuration 0 ATP(s) + 6 Shock(s) [facility] No Panel Informationon 12-13 BLANK _ [facility] Implant Date 03/23/2014 [facility] BLANK _ [facility] Implant Date 03/23/2014 [facility] ICD CLINIC CHECKon AV Delay Adaptive Paced Minimum (ms) 170 ms [facility] AV Delay Adaptive Rate Maximum (bpm) 130 {beats}/min [facility] AV Delay Adaptive Rate Minimum (bpm) 90 {beats}/min [facility] AV Delay Adaptive Sensed Minimum (ms) 120 ms [facility] AV Delay Adaptive Status Medium [facility] AV Delay Paced (ms) 90 ms [facility] AV Delay Sensed (ms) 90 ms [facility] Johan LV Pacing Amplitude (volts) 2.5 V [facility] Johan LV Pacing Polarity BI [facility] Johan LV Pacing Pulse Width (ms) 0.5 ms [facility] Johan RA Pacing Amplitude (volts) 2 V [facility] Johan RA Pacing Polarity BI [facility] Johan RA Pacing Pulse Width (ms) 0.5 ms [facility] Johan RA Sensing Amplitude (mvolts) 0.5 mV [facility] Johan RA Sensing Blanking Period (ms) 110 ms [facility] Johan RA Sensing Polarity BI [facility] Johan RA Sensing Refractory Period (ms) 190 ms [facility] Johan RV Pacing Amplitude (volts) 1.5 V [facility] Johan RV Pacing Polarity BI [facility] Johan RV Pacing Pulse Width (ms) 0.5 ms [facility] Johan RV Sensing Amplitude (mvolts) 0.3 mV [facility] Johan RV Sensing Blanking Period (ms) 44 ms [facility] Johan RV Sensing Polarity BI [facility] Detection Configuration (Vent) 1 - Zone [facility] ICD FastVT DetectionStatus DISABLED [facility] ICD-AMS EPISODES 170 {beats}/min [facility] ICD-Johan RV Sensing Refractory Period (ms) 250 ms [facility] ICD-Device Mfg Other [facility] ICD-FALLBACKRATE_BPM 70 {beats}/min [facility] ICD-Hysteresis Rate Off [facility] ICD-LEADIMPEDANCEATR IAL 337.5 ohm [facility] ICD-Percent Pacing (Atrial) 83 % [facility] ICD-Percent Pacing (Vent) 98 % [facility] ICD-PMT Intervention Atrial Pace [facility] ICD-PVC Intervention Off [facility] ICD-Rate Modulation Acceleration Reaction Fast [facility] ICD-Rate Modulation Deceleration Medium [facility] ICD-Rate Modulation Tyrrell Auto (+2) [facility] ICD-Rate Modulation Threshold Auto (-0.5) [facility] ICD-Rhythm SB/SR [facility] ICD-Shocks Aborted (Vent) 0 [facility] [id number] 0 [facility] ICD-SHOCKSABORTED 0 [facility] ICD-SHOCKSDELIVEREDV ENTRICULAR 0 [facility] Implant Date 10/18/2021 [facility] Lead Impedance (LV) 800 ohm [facility] Lead Impedance (RV) 412.5 ohm [facility] Lead Impedance High Voltage 57.375 [facility] Lead1 Mfg STJ [facility] Lead2 Mfg STJ [facility] Lead3 Mfg STJ [facility] Location LV [facility] Location RA [facility] Location RV [facility] Lower Rate (bpm) 70 {beats}/min [facility] Max Sensor Rate (bpm) 110 {beats}/min [facility] MDT_PROG_TACHY_ZONE_ DETECTIONS_STATUS ENABLED [facility] Model [id number] Avon HF [facility] Model 1458Q Quartet [facility] Model 2088TC Tendril STS [facility] Model 7122Q Durata SJ4 [facility] Pacemaker Dependent? NO [facility] Pacing Mode DDDR [facility] Serial Number [id number] [facility] Serial Number [id number] [facility] Serial Number [id number] [facility] Serial Number [id number] [facility] Therapy Status (Vent) Enabled [facility] Thresh LV Capture Amplitude (volts) 1 V [facility] Thresh LV Capture Duration (ms) 0.5 ms [facility] Thresh RA Capture Amplitude (volts) 0.5 V [facility] Thresh RA Capture Duration (ms) 0.5 ms [facility] Thresh RA Sensing Amplitude (mvolts) 2.1 mV [facility] Thresh RV Capture Amplitude (VOLTS) 0.5 V [facility] Thresh RV Capture Duration (MS) 0.5 ms [facility] Thresh RV Sensing Amplitude (MVOLTS) 12 mV [facility] Tracking Rate (bpm) 130 {beats}/min [facility] VF Zone Detection Interval 300 ms [facility] VF Zone Therapy Configuration 1 ATP(s) + 6 Shock(s) [facility] No Panel Informationon 11-30 BLANK _ [facility] Implant Date 03/23/2014 [facility] ICD REMOTE CHECKon 2 AV Delay Adaptive Paced Minimum (ms) 170 ms [facility] AV Delay Adaptive Sensed Minimum (ms) 120 ms [facility] AV Delay Paced (ms) 90 ms [facility] AV Delay Sensed (ms) 90 ms [facility] Battery Voltage 3.14 V [facility] Johan LV Pacing Amplitude (volts) 2.5 V [facility] Johan LV Pacing Polarity BI [facility] Johan LV Pacing Pulse Width (ms) 0.5 ms [facility] Johan RA Pacing Amplitude (volts) 2 V [facility] Johan RA Pacing Polarity BI [facility] Johan RA Pacing Pulse Width (ms) 0.5 ms [facility] Johan RA Sensing Amplitude (mvolts) 0.3 mV [facility] Johan RA Sensing Polarity BI [facility] Johan RV Pacing Amplitude (volts) 1.5 V [facility] Johan RV Pacing Polarity BI [facility] Johan RV Pacing Pulse Width (ms) 0.5 ms [facility] Johan RV Sensing Amplitude (mvolts) 0.3 mV [facility] Johan RV Sensing Polarity BI [facility] Detection Configuration (Vent) 1 - Zone [facility] ICD FastVT DetectionStatus DISABLED [facility] ICD-AMS EPISODES 170 {beats}/min [facility] ICD-ATP Episodes (Vent) 0 [facility] ICD-Device Mfg Other [facility] ICD-LEADIMPEDANCEATR IAL 330 ohm [facility] ICD-Percent Pacing (Atrial) 89 % [facility] ICD-Shocks Aborted (Vent) 0 [facility] [id number] 0 [facility] ICD-SHOCKSABORTED 0 [facility] ICD-SHOCKSDELIVEREDV ENTRICULAR 0 [facility] ICD-VVDELAY_MS 45 ms [facility] Implant Date 10/18/2021 [facility] Lead Impedance (LV) 790 ohm [facility] Lead Impedance (RV) 410 ohm [facility] Lead Impedance High Voltage 51 ohm [facility] Lead1 Mfg STJ [facility] Lead2 Mfg STJ [facility] Lead3 Mfg STJ [facility] Location LV [facility] Location RA [facility] Location RV [facility] Lower Rate (bpm) 70 {beats}/min [facility] Max Sensor Rate (bpm) 110 {beats}/min [facility] MDT_PROG_TACHY_ZONE_ DETECTIONS_STATUS ENABLED [facility] Model [id number] Avon HF [facility] Model 1458Q Quartet [facility] Model 2088TC Tendril STS [facility] Model 7122Q Durata SJ4 [facility] Pacing Mode DDDR [facility] Serial Number [id number] [facility] Serial Number [id number] [facility] Serial Number [id number] [facility] Serial Number [id number] [facility] Test Charge Energy 40 J [facility] Therapy Status (Vent) Enabled [facility] Thresh LV Capture Amplitude (volts) 0.75 V [facility] Thresh LV Capture Duration (ms) 0.5 ms [facility] Thresh RA Capture Amplitude (volts) 0.375 V [facility] Thresh RA Capture Duration (ms) 0.5 ms [facility] Thresh RA Sensing Amplitude (mvolts) 1.6 mV [facility] Thresh RV Capture Amplitude (VOLTS) 0.5 V [facility] Thresh RV Capture Duration (MS) 0.5 ms [facility] Thresh RV Sensing Amplitude (MVOLTS) 11.8 mV [facility] Tracking Rate (bpm) 130 {beats}/min [facility] VF Zone Detection Interval 300 ms [facility] VF Zone Therapy Configuration 0 ATP(s) + 6 Shock(s) [facility] No Panel Informationon 10-31 BLANK _ [facility] Implant Date 03/23/2014 [facility] ICD REMOTE CHECKon AV Delay Adaptive Paced Minimum (ms) 170 ms [facility] AV Delay Adaptive Rate Maximum (bpm) 130 {beats}/min [facility] AV Delay Adaptive Rate Minimum (bpm) 90 {beats}/min [facility] AV Delay Adaptive Sensed Minimum (ms) 120 ms [facility] AV Delay Adaptive Status Medium [facility] AV Delay Paced (ms) 90 ms [facility] AV Delay Sensed (ms) 90 ms [facility] Johan LV Pacing Amplitude (volts) 2.5 V [facility] Johan LV Pacing Polarity BI [facility] Johan LV Pacing Pulse Width (ms) 0.5 ms [facility] Johan RA Pacing Amplitude (volts) 2 V [facility] Johan RA Pacing Polarity BI [facility] Johan RA Pacing Pulse Width (ms) 0.5 ms [facility] Johan RA Sensing Amplitude (mvolts) 0.3 mV [facility] Johan RA Sensing Blanking Period (ms) 110 ms [facility] Johan RA Sensing Polarity BI [facility] Johan RA Sensing Refractory Period (ms) 190 ms [facility] Johan RV Pacing Amplitude (volts) 1.5 V [facility] Johan RV Pacing Polarity BI [facility] Johan RV Pacing Pulse Width (ms) 0.5 ms [facility] Johan RV Sensing Amplitude (mvolts) 0.3 mV [facility] Johan RV Sensing Blanking Period (ms) 44 ms [facility] Johan RV Sensing Polarity BI [facility] Detection Configuration (Vent) 1 - Zone [facility] ICD FastVT DetectionStatus DISABLED [facility] ICD-AMS EPISODES 170 {beats}/min [facility] ICD-Johan RV Sensing Refractory Period (ms) 250 ms [facility] ICD-Device Mfg Other [facility] ICD-FALLBACKRATE_BPM 70 {beats}/min [facility] ICD-Hysteresis Rate Off [facility] ICD-PMT Intervention Atrial Pace [facility] ICD-PVC Intervention Off [facility] ICD-Rate Modulation Acceleration Reaction Fast [facility] ICD-Rate Modulation Deceleration Medium [facility] ICD-Rate Modulation Tyrrell Auto (+2) [facility] ICD-Rate Modulation Threshold Auto (-0.5) [facility] Implant Date 10/18/2021 [facility] Lead1 Mfg STJ [facility] Lead2 Mfg STJ [facility] Lead3 Mfg STJ [facility] Location LV [facility] Location RA [facility] Location RV [facility] Lower Rate (bpm) 70 {beats}/min [facility] Max Sensor Rate (bpm) 110 {beats}/min [facility] MDT_PROG_TACHY_ZONE_ DETECTIONS_STATUS ENABLED [facility] Model [id number] Avon HF [facility] Model 1458Q Quartet [facility] Model 2088TC Tendril STS [facility] Model 7122Q Durata SJ4 [facility] Pacing Mode DDDR [facility] Serial Number [id number] [facility] Serial Number [id number] [facility] Serial Number [id number] [facility] Serial Number [id number] [facility] Therapy Status (Vent) Enabled [facility] Tracking Rate (bpm) 130 {beats}/min [facility] VF Zone Detection Interval 300 ms [facility] VF Zone Therapy Configuration 1 ATP(s) + 6 Shock(s) [facility] No Panel Informationon 10-23 BLANK _ [facility] Implant Date 03/23/2014 [facility] ICD CLINIC CHECKon 2 AV Delay Adaptive Paced Minimum (ms) 170 ms [facility] AV Delay Adaptive Rate Maximum (bpm) 130 {beats}/min [facility] AV Delay Adaptive Rate Minimum (bpm) 90 {beats}/min [facility] AV Delay Adaptive Sensed Minimum (ms) 120 ms [facility] AV Delay Adaptive Status Medium [facility] AV Delay Paced (ms) 90 ms [facility] AV Delay Sensed (ms) 90 ms [facility] Johan LV Pacing Amplitude (volts) 2.5 V [facility] Johan LV Pacing Polarity BI [facility] Johan LV Pacing Pulse Width (ms) 0.5 ms [facility] Johan RA Pacing Amplitude (volts) 2 V [facility] Johan RA Pacing Polarity BI [facility] Johan RA Pacing Pulse Width (ms) 0.5 ms [facility] Johan RA Sensing Amplitude (mvolts) 0.3 mV [facility] Johan RA Sensing Blanking Period (ms) 110 ms [facility] Johan RA Sensing Polarity BI [facility] Johan RA Sensing Refractory Period (ms) 190 ms [facility] Johan RV Pacing Amplitude (volts) 1.5 V [facility] Johan RV Pacing Polarity BI [facility] Johan RV Pacing Pulse Width (ms) 0.5 ms [facility] Johan RV Sensing Amplitude (mvolts) 0.3 mV [facility] Johan RV Sensing Blanking Period (ms) 44 ms [facility] Johan RV Sensing Polarity BI [facility] Detection Configuration (Vent) 1 - Zone [facility] ICD FastVT DetectionStatus DISABLED [facility] ICD-AMS EPISODES 170 {beats}/min [facility] ICD-Johan RV Sensing Refractory Period (ms) 250 ms [facility] ICD-Device Mfg Other [facility] ICD-FALLBACKRATE_BPM 70 {beats}/min [facility] ICD-Hysteresis Rate Off [facility] ICD-LEADIMPEDANCEATR IAL 337.5 ohm [facility] ICD-Percent Pacing (Atrial) 77 % [facility] ICD-Percent Pacing (Vent) 94 % [facility] ICD-PMT Intervention Atrial Pace [facility] ICD-PVC Intervention Off [facility] ICD-Rate Modulation Acceleration Reaction Fast [facility] ICD-Rate Modulation Deceleration Medium [facility] ICD-Rate Modulation Tyrrell Auto (+2) [facility] ICD-Rate Modulation Threshold Auto (-0.5) [facility] ICD-Rhythm SR with a 1st degree AV block. [facility] ICD-Shocks Aborted (Vent) 0 [facility] [id number] 0 [facility] ICD-SHOCKSABORTED 0 [facility] ICD-SHOCKSDELIVEREDV ENTRICULAR 0 [facility] Implant Date 10/18/2021 [facility] Lead Impedance (LV) 787.5 ohm [facility] Lead Impedance (RV) 400 ohm [facility] Lead Impedance High Voltage 58.5 ohm [facility] Lead1 Mfg STJ [facility] Lead2 Mfg STJ [facility] Lead3 Mfg STJ [facility] Location LV [facility] Location RA [facility] Location RV [facility] Lower Rate (bpm) 70 {beats}/min [facility] Max Sensor Rate (bpm) 110 {beats}/min [facility] MDT_PROG_TACHY_ZONE_ DETECTIONS_STATUS ENABLED [facility] Model [id number] Avon HF [facility] Model 1458Q Quartet [facility] Model 2088TC Tendril STS [facility] Model 7122Q Durata SJ4 [facility] Pacemaker Dependent? NO [facility] Pacing Mode DDDR [facility] Serial Number [id number] [facility] Serial Number [id number] [facility] Serial Number [id number] [facility] Serial Number [id number] [facility] Therapy Status (Vent) Enabled [facility] Thresh LV Capture Amplitude (volts) 0.75 V [facility] Thresh LV Capture Duration (ms) 0.5 ms [facility] Thresh RA Capture Amplitude (volts) 0.5 V [facility] Thresh RA Capture Duration (ms) 0.5 ms [facility] Thresh RA Sensing Amplitude (mvolts) 2 mV [facility] Thresh RV Capture Amplitude (VOLTS) 0.5 V [facility] Thresh RV Capture Duration (MS) 0.5 ms [facility] Thresh RV Sensing Amplitude (MVOLTS) 11.8 mV [facility] Tracking Rate (bpm) 130 {beats}/min [facility] VF Zone Detection Interval 300 ms [facility] VF Zone Therapy Configuration 1 ATP(s) + 6 Shock(s) [facility] No Panel Informationon 10-18 BLANK _ [facility] Implant Date 03/23/2014 [facility] ICD CLINIC CHECKon 2 AV Delay Adaptive Paced Minimum (ms) 170 ms [facility] AV Delay Adaptive Rate Maximum (bpm) 110 {beats}/min [facility] AV Delay Adaptive Rate Minimum (bpm) 90 {beats}/min [facility] AV Delay Adaptive Sensed Minimum (ms) 120 ms [facility] AV Delay Adaptive Status Medium [facility] AV Delay Paced (ms) 90 ms [facility] AV Delay Sensed (ms) 90 ms [facility] Johan LV Pacing Amplitude (volts) 2 V [facility] Johan LV Pacing Polarity BI [facility] Johan LV Pacing Pulse Width (ms) 0.8 ms [facility] Johan RA Pacing Amplitude (volts) 2 V [facility] Johan RA Pacing Polarity BI [facility] Johan RA Pacing Pulse Width (ms) 0.4 ms [facility] Johan RA Sensing Amplitude (mvolts) 0.3 mV [facility] Johan RA Sensing Blanking Period (ms) 110 ms [facility] Johan RA Sensing Polarity BI [facility] Johan RA Sensing Refractory Period (ms) 190 ms [facility] Johan RV Pacing Amplitude (volts) 2 V [facility] Johan RV Pacing Polarity BI [facility] Johan RV Pacing Pulse Width (ms) 0.4 ms [facility] Johan RV Sensing Amplitude (mvolts) 0.5 mV [facility] Johan RV Sensing Blanking Period (ms) 52 ms [facility] Johan RV Sensing Polarity BI [facility] Detection Configuration (Vent) 1 - Zone [facility] ICD FastVT DetectionStatus DISABLED [facility] ICD-AMS EPISODES 170 {beats}/min [facility] ICD-ATP Episodes (Vent) 0 [facility] ICD-Johan RV Sensing Refractory Period (ms) 250 ms [facility] ICD-Device Mfg STJ [facility] ICD-FALLBACKRATE_BPM 70 {beats}/min [facility] ICD-Hysteresis Rate Off [facility] ICD-LEADIMPEDANCEATR IAL 362.5 ohm [facility] ICD-Percent Pacing (Atrial) 80 % [facility] ICD-Percent Pacing (Vent) 97 % [facility] ICD-PMT Intervention Atrial Pace [facility] ICD-PVC Intervention Off [facility] ICD-Rate Modulation Acceleration Reaction Fast [facility] ICD-Rate Modulation Deceleration Medium [facility] ICD-Rate Modulation Tyrrell Auto (+2) [facility] ICD-Rate Modulation Threshold Auto (+0.0) [facility] ICD-Rhythm historically SR [facility] ICD-Shocks Aborted (Vent) 0 [facility] [id number] 0 [facility] ICD-SHOCKSABORTED 0 [facility] ICD-SHOCKSDELIVEREDV ENTRICULAR 0 [facility] ICD-Ventricular Fibrillation 0 [facility] Lead Impedance (LV) 812.5 ohm [facility] Lead Impedance (RV) 387.5 ohm [facility] Lead Impedance High Voltage 69.75 ohm [facility] Lead1 Mfg STJ [facility] Lead2 Mfg STJ [facility] Lead3 Mfg STJ [facility] Location LV [facility] Location RA [facility] Location RV [facility] Lower Rate (bpm) 70 {beats}/min [facility] Max Sensor Rate (bpm) 110 {beats}/min [facility] MDT_PROG_TACHY_ZONE_ DETECTIONS_STATUS ENABLED [facility] Model [id number] [employer] [facility] Model 1458Q Quartet [facility] Model 2088TC Tendril STS [facility] Model 7122Q Durata SJ4 [facility] Pacemaker Dependent? NO [facility] Pacing Mode DDDR [facility] Serial Number [id number] [facility] Serial Number [id number] [facility] Serial Number [id number] [facility] Serial Number [id number] [facility] Test Charge Time 11.375 [facility] Therapy Status (Vent) Enabled [facility] Thresh RA Sensing Amplitude (mvolts) 3.1 mV [facility] Thresh RV Sensing Amplitude (MVOLTS) 12 mV [facility] Tracking Rate (bpm) 110 {beats}/min [facility] VF Zone Detection Interval 300 ms [facility] VF Zone Therapy Configuration 1 ATP(s) + 6 Shock(s) [facility] No Panel Informationon 10-04 BLANK _ [facility] Implant Date 03/23/2014 [facility] ICD REMOTE CHECKon AV Delay Adaptive Paced Minimum (ms) 170 ms [facility] AV Delay Adaptive Sensed Minimum (ms) 120 ms [facility] AV Delay Paced (ms) 90 ms [facility] AV Delay Sensed (ms) 90 ms [facility] Battery Voltage 2.59 V [facility] Johan LV Pacing Amplitude (volts) 2 V [facility] Johan LV Pacing Polarity BI [facility] Johan LV Pacing Pulse Width (ms) 0.8 ms [facility] Johan RA Pacing Amplitude (volts) 2 V [facility] Johan RA Pacing Polarity BI [facility] Johan RA Pacing Pulse Width (ms) 0.4 ms [facility] Johan RA Sensing Amplitude (mvolts) 0.3 mV [facility] Johan RA Sensing Polarity BI [facility] Johan RV Pacing Amplitude (volts) 2 V [facility] Johan RV Pacing Polarity BI [facility] Johan RV Pacing Pulse Width (ms) 0.4 ms [facility] Johan RV Sensing Amplitude (mvolts) 0.5 mV [facility] Johan RV Sensing Polarity BI [facility] Detection Configuration (Vent) 1 - Zone [facility] ICD FastVT DetectionStatus DISABLED [facility] ICD-AMS EPISODES 170 {beats}/min [facility] ICD-ATP Episodes (Vent) 0 [facility] [facility] ICD-Device Mfg STJ [facility] ICD-LEADIMPEDANCEATR IAL 390 ohm [facility] ICD-Percent Pacing (Atrial) 80 % [facility] ICD-Shocks Aborted (Vent) 0 [facility] [id number] 0 [facility] ICD-SHOCKSABORTED 0 [facility] ICD-SHOCKSDELIVEREDV ENTRICULAR 0 [facility] ICD-VVDELAY_MS 45 ms [facility] Lead Impedance (LV) 830 ohm [facility] Lead Impedance (RV) 400 ohm [facility] Lead Impedance High Voltage 65 ohm [facility] Lead1 Mfg STJ [facility] Lead2 Mfg STJ [facility] Lead3 Mfg STJ [facility] Location LV [facility] Location RA [facility] Location RV [facility] Lower Rate (bpm) 70 {beats}/min [facility] Max Sensor Rate (bpm) 110 {beats}/min [facility] MDT_PROG_TACHY_ZONE_ DETECTIONS_STATUS ENABLED [facility] Model 3365-40Q Quadra Assura Cl [facility] Model 1458Q Quartet [facility] Model 2088TC Tendril STS [facility] Model 7122Q Durata SJ4 [facility] Pacing Mode DDDR [facility] Serial Number [id number] [facility] Serial Number [id number] [facility] Serial Number [id number] [facility] Serial Number [id number] [facility] Test Charge Energy 40 J [facility] Test Charge Time 11.4 s [facility] Therapy Status (Vent) Enabled [facility] Thresh LV Capture Amplitude (volts) 0.75 V [facility] Thresh LV Capture Duration (ms) 0.8 ms [facility] Thresh RA Capture Amplitude (volts) 0.5 V [facility] Thresh RA Capture Duration (ms) 0.4 ms [facility] Thresh RA Sensing Amplitude (mvolts) 1.4 mV [facility] Thresh RV Capture Amplitude (VOLTS) 0.5 V [facility] Thresh RV Capture Duration (MS) 0.4 ms [facility] Thresh RV Sensing Amplitude (MVOLTS) 12 mV [facility] Tracking Rate (bpm) 110 {beats}/min [facility] VF Zone Detection Interval 300 ms [facility] VF Zone Therapy Configuration 0 ATP(s) + 6 Shock(s) [facility] No Panel Informationon 09-28 BLANK _ [facility] Implant Date 03/23/2014 [facility] GLYCOHEMOGLOBIN A1Con 2021 ADA RECOMMENDATION SEE BELOW Normal [facility] Comment on above: Result Comment: ADA RECOMMENDED LIMIT 4.0 - 6.0 ADA THERAPEUTIC TARGET < 7.0 ACTION SUGGESTED > 7.0 Performed By: #### C K #### [facility] [address] [address] [address] Darline Starr Glucose [Mass/Vol] 126 mg/dL Normal [facility] Comment on above: Performed By: #### C K #### [facility] [address] [address] [address] Darline Starr HbA1c (Bld) [Mass fraction] 6.0 % Normal 4.5-6.2 [facility] Comment on above: Performed By: #### C K #### [facility] [address] [address] [address] Darline Starr ICD REMOTE CHECKon 2 AV Delay Adaptive Paced Minimum (ms) 170 ms [facility] AV Delay Adaptive Sensed Minimum (ms) 120 ms [facility] AV Delay Paced (ms) 90 ms [facility] AV Delay Sensed (ms) 90 ms [facility] Battery Voltage 2.6 V [facility] Johan LV Pacing Amplitude (volts) 2 V [facility] Johan LV Pacing Polarity BI [facility] Johan LV Pacing Pulse Width (ms) 0.8 ms [facility] Johan RA Pacing Amplitude (volts) 2 V [facility] Johan RA Pacing Polarity BI [facility] Johan RA Pacing Pulse Width (ms) 0.4 ms [facility] Johan RA Sensing Amplitude (mvolts) 0.3 mV [facility] Johan RA Sensing Polarity BI [facility] Johan RV Pacing Amplitude (volts) 2 V [facility] Johan RV Pacing Polarity BI [facility] Johan RV Pacing Pulse Width (ms) 0.4 ms [facility] Johan RV Sensing Amplitude (mvolts) 0.5 mV [facility] Johan RV Sensing Polarity BI [facility] Detection Configuration (Vent) 1 - Zone [facility] ICD FastVT DetectionStatus DISABLED [facility] ICD-AMS EPISODES 170 {beats}/min [facility] ICD-ATP Episodes (Vent) 0 [facility] ICD-Device Mfg STJ [facility] ICD-LEADIMPEDANCEATR IAL 430 ohm [facility] ICD-Percent Pacing (Atrial) 80 % [facility] ICD-Shocks Aborted (Vent) 0 [facility] [id number] 0 [facility] ICD-SHOCKSABORTED 0 [facility] ICD-SHOCKSDELIVEREDV ENTRICULAR 0 [facility] ICD-VVDELAY_MS 45 ms [facility] Lead Impedance (LV) 860 ohm [facility] Lead Impedance (RV) 430 ohm [facility] Lead Impedance High Voltage 70 ohm [facility] Lead1 Mfg STJ [facility] Lead2 Mfg STJ [facility] Lead3 Mfg STJ [facility] Location LV [facility] Location RA [facility] Location RV [facility] Lower Rate (bpm) 70 {beats}/min [facility] Max Sensor Rate (bpm) 110 {beats}/min [facility] MDT_PROG_TACHY_ZONE_ DETECTIONS_STATUS ENABLED [facility] Model 3365-40Q Quadra Assura Cl [facility] Model 1458Q Quartet [facility] Model 2088TC Tendril STS [facility] Model 7122Q Durata SJ4 [facility] Pacing Mode DDDR [facility] Serial Number [id number] [facility] Serial Number [id number] [facility] Serial Number [id number] [facility] Serial Number [id number] [facility] Test Charge Energy 40 J [facility] Test Charge Time 11.4 s [facility] Therapy Status (Vent) Enabled [facility] Thresh LV Capture Amplitude (volts) 0.75 V [facility] Thresh LV Capture Duration (ms) 0.8 ms [facility] Thresh RA Capture Amplitude (volts) 0.5 V [facility] Thresh RA Capture Duration (ms) 0.4 ms [facility] Thresh RA Sensing Amplitude (mvolts) 2.4 mV [facility] Thresh RV Capture Amplitude (VOLTS) 0.5 V [facility] Thresh RV Capture Duration (MS) 0.4 ms [facility] Thresh RV Sensing Amplitude (MVOLTS) 12 mV [facility] Tracking Rate (bpm) 110 {beats}/min [facility] VF Zone Detection Interval 300 ms [facility] VF Zone Therapy Configuration 0 ATP(s) + 6 Shock(s) [facility] No Panel Informationon 08-29 BLANK _ [facility] Implant Date 03/23/2014 [facility] PTH INTACTon 08-12-2021 PTH, Intact 32 pg/mL Normal 15-65 [facility] Comment on above: Performed By: #### P THINT #### [facility] [address] [place] [address] Dr. Darline Starr CBC AUTO DIFFon 08-10-2021 BASO # 0.0 103/ul Normal 0.0-0.1 [facility] Comment on above: Performed By: #### M ALBCRL #### [facility] [address] [place] [address] Dr. Darline Starr Basophils/100 WBC (Bld) 0.6 % Normal 0.2-2.0 [facility] Comment on above: Performed By: #### M ALBCRL #### [facility] [address] [place] [address] Dr. Darline Starr EO # 0.2 103/ul Normal 0.0-0.7 [facility] Comment on above: Performed By: #### M ALBCRL #### [facility] [address] [place] [address] Dr. Darline Starr Eosinophils/100 WBC (Bld) 3.6 % Normal 0.9-7.0 [facility] Comment on above: Performed By: #### M ALBCRL #### [facility] [address] [place] [address] Dr. Darline Starr Erythrocyte distribution width (RBC) [Ratio] 14.0 % Normal 11.0-15.0 [facility] Comment on above: Performed By: #### M ALBCRL #### [facility] [address] [place] [address] Dr. Darline Starr Hematocrit (Bld) [Volume fraction] 41.2 % Critically low 42.0-54.0 [facility] Comment on above: Performed By: #### M ALBCRL #### [facility] [address] [place] [address] Dr. Darline Starr Hemoglobin (Bld) [Mass/Vol] 13.3 g/dL Critically low 14.0-18.0 [facility] Comment on above: Performed By: #### M ALBCRL #### [facility] [address] [place] [address] Dr. Darline Starr IG # 0.03 10e3/ul Normal 0.00-0.03 [facility] Comment on above: Performed By: #### M ALBCRL #### [facility] [address] [place] [address] Dr. Darline Starr IG % 0.5 % Normal 0.0-0.5 [facility] Comment on above: Performed By: #### M ALBCRL #### [facility] [address] [address] [address] Darline Starr LYMPH # 1.3 103/ul Normal 1.2-3.8 [facility] Comment on above: Performed By: #### M ALBCRL #### [facility] [address] [place] [address] Dr. Darline Starr Lymphocytes/100 WBC (Bld) 20.4 % Critically low 20.5-60.0 [facility] Comment on above: Performed By: #### M ALBCRL #### [facility] [address] [place] [address] Dr. Darline Starr MANUAL DIFF REQ NO Normal [facility] Comment on above: Performed By: #### M ALBCRL #### [facility] [address] [place] [address] Dr. Darline Starr MCH (RBC) [Entitic mass] 32.0 pg Normal 25.9-34.0 [facility] Comment on above: Performed By: #### M ALBCRL #### [facility] [address] [place] [address] Dr. Darline Starr MCHC (RBC) [Mass/Vol] 32.3 g/dL Normal 29.9-35.2 [facility] Comment on above: Performed By: #### M ALBCRL #### [facility] [address] [place] [address] Dr. Darline Starr MCV (RBC) [Entitic vol] 99.0 fL Critically high 80.0-94.0 [facility] Comment on above: Performed By: #### M ALBCRL #### [facility] [address] [place] [address] Dr. Darline Starr MONO # 0.5 103/ul Normal 0.3-0.8 [facility] Comment on above: Performed By: #### M ALBCRL #### [facility] [address] [place] [address] Dr. Darline Starr Monocytes/100 WBC (Bld) 7.6 % Normal 1.7-12.0 [facility] Comment on above: Performed By: #### M ALBCRL #### [facility] [address] [place] [address] Dr. Darline Starr NEUT # 4.4 103/ul Normal 1.4-6.5 [facility] Comment on above: Performed By: #### M ALBCRL #### [facility] [address] [place] [address] Dr. Darline Starr Neutrophils/100 WBC (Bld) 67.3 % Normal 43.0-75.0 [facility] Comment on above: Performed By: #### M ALBCRL #### [facility] [address] [place] [address] Dr. Darline Starr Platelet mean volume (Bld) [Entitic vol] 10.1 fL Normal 9.5-13.5 [facility] Comment on above: Performed By: #### M ALBCRL #### [facility] [address] [place] [address] Dr. Darline Starr PLT 183 103/ul Normal 150-450 [facility] Comment on above: Performed By: #### M ALBCRL #### [facility] [address] [place] [address] Dr. Darline Starr RBC 4.16 106/ul Critically low 4.70-6.10 [facility] Comment on above: Performed By: #### M ALBCRL #### [facility] [address] [place] [address] Dr. Darline Starr WBC 6.5 103/ul Normal 4.0-11.0 [facility] Comment on above: Performed By: #### M ALBCRL #### [facility] [address] [place] [address] Dr. Darline Starr RENAL FUNCTION PANELon 08-10 Albumin [Mass/Vol] 3.2 g/dL Critically low 3.4-5.[address] [facility] Comment on above: Performed By: #### R ENAL #### [facility] [address] [place] [address] Dr. Darline Starr Calcium [Mass/Vol] 8.7 mg/dL Normal 8.5-10.1 [facility] Comment on above: Performed By: #### R ENAL #### [facility] [address] [address] [address] Darline Starr Chloride [Moles/Vol] 107 mmol/L Normal 98-107 [facility] Comment on above: Performed By: #### R ENAL #### [facility] [address] [place] [address] Dr. Darline Starr CO2 [Moles/Vol] 29.5 mmol/L Normal 22.0-30.0 [facility] Comment on above: Performed By: #### R ENAL #### [facility] [address] [place] [address] Dr. Darline Starr Creatinine [Mass/Vol] 1.63 mg/dL Critically high 0.66-1.25 [facility] Comment on above: Performed By: #### R ENAL #### [facility] [address] [place] [address] Dr. Darline Starr EGFR-AF TURKISH 50 mL/min/1.73m2 Critically low >=60 [facility] Comment on above: Performed By: #### R ENAL #### [facility] [address] [place] [address] Dr. Darline Starr EGFR-NON AF TURKISH 41 mL/min/1.73m2 Critically low >=60 [facility] Comment on above: Performed By: #### R ENAL #### [facility] [address] [place] [address] Dr. Darline Starr Glucose [Mass/Vol] 179 mg/dL Critically high 74-106 T [facility] Comment on above: Performed By: #### R ENAL #### [facility] [address] [place] [address] Dr. Darline Starr Phosphate [Mass/Vol] 3.5 mg/dL Normal 2.5-4.5 [facility] Comment on above: Performed By: #### R ENAL #### [facility] [address] [place] [address] Dr. Darline Starr Potassium [Moles/Vol] 4.4 mmol/L Normal 3.4-5.0 [facility] Comment on above: Performed By: #### R ENAL #### [facility] [address] [place] [address] Dr. Darline Starr Sodium [Moles/Vol] 143 mmol/L Normal 137-145 [facility] Comment on above: Performed By: #### R ENAL #### [facility] [address] [place] [address] Dr. Darline Starr Urea nitrogen [Mass/Vol] 24.0 mg/dL Critically high 7.0-18.0 [facility] Comment on above: Performed By: #### R ENAL #### [facility] [address] [place] [address] Dr. Darline Starr UA RANDOM W/MICROSCOPICon BACTERIA NONE SEEN Normal NONE SEEN [facility] Comment on above: Performed By: #### P OCGLUC #### [facility] [address] [place] [address] Dr. Darline Starr Bilirubin Ql (U) Negative Normal NEGATIVE [facility] Comment on above: Performed By: #### P OCGLUC #### [facility] [address] [place] [address] Dr. Darline Starr CAST SEEN Abnormal NONE SEEN [facility] Comment on above: Performed By: #### P OCGLUC #### [facility] [address] [place] [address] Dr. Darline Starr Clarity (U) CLEAR Normal CLEAR [facility] Comment on above: Performed By: #### P OCGLUC #### [facility] [address] [place] [address] Dr. Darline Starr Color (U) LT. YELLOW Normal YELLOW [facility] Comment on above: Performed By: #### P OCGLUC #### [facility] [address] [address] [address] Darline Starr Crystals LM Nom (Urine sed) NONE SEEN Normal NONE SEEN [facility] Comment on above: Performed By: #### P OCGLUC #### [facility] [address] [address] [address] Darline Starr Epithelial cells LM Ql (Urine sed) FEW Abnormal NONE SEEN /RARE [facility] Comment on above: Performed By: #### P OCGLUC #### [facility] [address] [address] [address] Darline Starr Glucose Ql (U) Negative Normal NEGATIVE [facility] Comment on above: Performed By: #### P OCGLUC #### [facility] [address] [address] [address] Darline Starr Hemoglobin Ql (U) Negative Normal NEGATIVE [facility] Comment on above: Performed By: #### P OCGLUC #### [facility] [address] [address] [address] Darline Starr HYALINE CAST FEW Normal [facility] Comment on above: Performed By: #### P OCGLUC #### [facility] [address] [address] [address] Darline Starr Ketones Ql (U) Negative Normal NEGATIVE [facility] Comment on above: Performed By: #### P OCGLUC #### [facility] [address] [address] [address] Darline Starr LEUKOCYTES Negative Normal NEGATIVE [facility] Comment on above: Performed By: #### P OCGLUC #### [facility] [address] [address] [address] Darline Starr MUCOUS NONE SEEN Normal NONE SEEN [facility] Comment on above: Performed By: #### P OCGLUC #### [facility] [address] [address] [address] Darline Starr Nitrite Ql (U) Negative Normal NEGATIVE [facility] Comment on above: Performed By: #### P OCGLUC #### [facility] [address] [address] [address] Darline Starr pH (U) 5.0 [pH] Normal 5-9 [facility] Comment on above: Performed By: #### P OCGLUC #### [facility] [address] [address] [address] Darline Starr RBC 0-2 Normal 0-2 [facility] Comment on above: Performed By: #### P OCGLUC #### [facility] [address] [address] [address] Darline Starr SPEC GRAVITY 1.025 Normal 1.005-<=1.025 [facility] Comment on above: Performed By: #### P OCGLUC #### [facility] [address] [address] [address] Darline Starr UA PROTEIN Negative Normal NEGATIVE/ TRACE [facility] Comment on above: Performed By: #### P OCGLUC #### [facility] [address] [place] [address] Dr. Darline Starr Urobilinogen Qn (U) 0.2 {Jess'U}/dL Normal 0.2 - 1. 0 [facility] Comment on above: Performed By: #### P OCGLUC #### [facility] [address] [place] [address] Dr. aDrline Starr WBC 0-2 Abnormal NONE SEEN [facility] Comment on above: Performed By: #### P OCGLUC #### [facility] [address] [place] [address] Dr. Darline Starr URINE T PROTEIN CREAT RATIOo n 08-10-2021 Protein (U) [Mass/Vol] 18.1 mg/dL Critically high <=12.0 [facility] Comment on above: Performed By: #### P OCGLUC #### [facility] [address] [address] [address] Darline Starr UR PROT CREAT RAT 0.[address] [facility] Comment on above: Performed By: #### P OCGLUC #### [facility] [address] [place] [address] Dr. Darline Starr URINE CREAT 189.98 mg/dL Normal 20.00-300.00 [facility] Comment on above: Performed By: #### P OCGLUC #### [facility] [address] [address] [address] Darline Starr VITAMIN D 25 OHon 08-10-2021 VIT D 25-OH 51.0 ng/mL Normal [facility] Comment on above: Performed By: #### P OCGLUC #### [facility] [address] [address] [address] Darline Starr VIT D RANGES SEE BELOW Normal [facility] Comment on above: Result Comment: <20 ng/mL Vit D deficient 20 - <30 ng/mL Vit D insufficient 30 - 100 ng/mL Vit D sufficient >100 ng/mL Potential Toxicity Performed By: #### P OCGLUC #### [facility] [address] [address] [address] Darline Starr Potassiumon 04-23-2020 Potassium [Moles/Vol] 4.9 mmol/L Normal 3.4-4.9 [facility] Comment on above: Result Comment: Spec imen hemolysis has exceeded the interference as defined by Patsy. Value may be falsely increased. Suggest recollection if clinically indicated. Performed By: #### K #### [facility] [address] [facility] [place] [id number] [phone] Vital Signs Date Time Vital Sign Value Performing Clinician Max yost 09-03-2023 13:52-0400 Body height 185.4 cm Rossy Wright APRN.SOLE CONFORMING MACHINE OPERATOR Work Phone: [facility] 09-03-2023 13:52-0400 Body weight 112.4 kg Rossy Wright APRN.SOLE CONFORMING MACHINE OPERATOR Work Phone: [facility] 09-03-2023 13:52-0400 Diastolic blood pressure 57 mm[Hg] Rossy Wright APRN.SOLE CONFORMING MACHINE OPERATOR Work Phone: [facility] 09-03-2023 13:52-0400 Heart rate 70 /min Rossy Wright APRN.SOLE CONFORMING MACHINE OPERATOR Work Phone: [facility] 09-03-2023 13:52-0400 Systolic blood pressure 89 mm[Hg] Rossy Wright APRN.CNP Work Phone: [facility] 07-31-2023 10:34-0400 Body height 185.4 cm Lakesha Sanchez MD Work Phone: [facility] 07-31-2023 10:34-0400 Body mass index (BMI) [Ratio] 32.19 kg/m2 Lakesha Sanchez MD Work Phone: [facility] 07-31-2023 10:34-0400 Body weight 110.68 kg Lakesha Sanchez MD Work Phone: [facility] 07-31-2023 10:34-0400 Diastolic blood pressure 60 mm[Hg] Lakesha Sanchez MD Work Phone: [facility] 07-31-2023 10:34-0400 Heart rate 69 /min Lakesha Sanchez MD Work Phone: [facility] 07-31-2023 10:34-0400 Respiratory rate 16 /min Lakesha Sanchez MD Work Phone: [facility] 07-31-2023 10:34-0400 SaO2% (BldA) [Mass fraction] 97 % Lakesha Sanchez MD Work Phone: [facility] 07-31-2023 10:34-0400 Systolic blood pressure 107 mm[Hg] Lakesha Sanchez MD Work Phone: [facility] 03-27-2023 12:01-0500 Body height 185.4 cm Lyle De La Rosa MD Work Phone: [facility] 03-27-2023 12:01-0500 Body weight 112.04 kg Lyle De La Rosa MD Work Phone: [facility] 03-27-2023 12:01-0500 Diastolic blood pressure 57 mm[Hg] Lyle De La Rosa MD Work Phone: [facility] 03-27-2023 12:01-0500 Heart rate 73 /min Lyle De La Rosa MD Work Phone: [facility] 03-27-2023 12:01-0500 Systolic blood pressure 89 mm[Hg] Lyle De La Rosa MD Work Phone: [facility] 03-01-2023 14:51-0400 Body height 185.4 cm Savanah Deitzer DO Work Phone: [facility] 03-01-2023 14:51-0400 Body weight 120.2 kg Savanah Deitzer DO Work Phone: [facility] 03-01-2023 14:51-0400 Diastolic blood pressure 66 mm[Hg] Savanah Deitzer DO Work Phone: [facility] 03-01-2023 14:51-0400 Heart rate 70 /min Savanah Deitzer DO Work Phone: [facility] 03-01-2023 14:51-0400 Systolic blood pressure 102 mm[Hg] Savanah Deitzer DO Work Phone: [facility] 08-13-2022 10:48-0400 Body height 185.4 cm Rossy Wright MENTAL HEALTH ASSOCIATE.SOLE CONFORMING MACHINE OPERATOR Work Phone: [facility] 08-13-2022 10:48-0400 Body weight 120.2 kg Rossy Wright MENTAL HEALTH ASSOCIATE.SOLE CONFORMING MACHINE OPERATOR Work Phone: [facility] 08-13-2022 10:48-0400 Diastolic blood pressure 58 mm[Hg] Rossy Trinidad MENTAL HEALTH ASSOCIATE.SOLE CONFORMING MACHINE OPERATOR Work Phone: [facility] 08-13-2022 10:48-0400 Heart rate 70 /min Rossy Trinidad MENTAL HEALTH ASSOCIATE.SOLE CONFORMING MACHINE OPERATOR Work Phone: [facility] 08-13-2022 10:48-0400 Systolic blood pressure 91 mm[Hg] Rossy Trinidad MENTAL HEALTH ASSOCIATE.SOLE CONFORMING MACHINE OPERATOR Work Phone: [facility] 07-04-2022 11:01-0500 Body weight 118.84 kg Lakesha Sanchez MD Work Phone: [facility] 07-04-2022 11:01-0500 Diastolic blood pressure 57 mm[Hg] Lakesha Sanchez MD Work Phone: [facility] 07-04-2022 11:01-0500 Heart rate 72 /min Lakesha Sanchez MD Work Phone: [facility] 07-04-2022 11:01-0500 SaO2% (BldA) [Mass fraction] 95 % Lakesha Sanchez MD Work Phone: [facility] 07-04-2022 11:01-0500 Systolic blood pressure 94 mm[Hg] Lakesha Sanchez MD Work Phone: [facility] 10-04-2021 13:27-0400 Body height 185.4 cm Lakesha Sanchez MD Work Phone: [facility] 10-04-2021 13:27-0400 Body weight 123.38 kg Lakesha Sanchez MD Work Phone: [facility] 10-04-2021 13:27-0400 Diastolic blood pressure 66 mm[Hg] Lakesha Sanchez MD Work Phone: [facility] 10-04-2021 13:27-0400 Heart rate 68 /min Lakesha Sanchez MD Work Phone: [facility] 10-04-2021 13:27-0400 SaO2% (BldA) [Mass fraction] 98 % Lakesha Sanchez MD Work Phone: [facility] 10-04-2021 13:27-0400 Systolic blood pressure 129 mm[Hg] Lakesha Sanchez MD Work Phone: [facility] Encounters Encounter Date Encounter Type Care Provider Facility Start: 09-03-2023 End: 09-03-2023 ambulatory MICHEL ALCAZAR Facility:[facility] Start: 09-03-2023 End: 09-03-2023 Patient encounter procedure Rossy Wright APRN.SOLE CONFORMING MACHINE OPERATOR Work Phone: [facility] Comment on above: Stage 3b chronic kid mago disease (HCC) (Primary Dx); Type 2 diabetes mellitus with stage 3b chronic kidney disease, without long-term current use of insulin (HCC) Start: 07-31-2023 End: 07-31-2023 ambulatory MICHEL A CHRISTOPHEERER Facility: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 Start: 03-27-2023 Follow-up encounter Lyle hull MD Work Phone: [facility] Start: 03-27-2023 End: 03-27-2023 Patient encounter procedure Lyle De La Rosa MD Work Phone: [facility] Comment on above: Cardiomyopathy, isch emic (Primary Dx) Start: 03-27-2023 End: 03-27-2023 ambulatory MICHEL A CHRISTOPHEERER Facility:[facility] Start: 03-05-2023 Telephone encounter Savanah vazquez DO Work Phone: [facility] Medicine Comment on above: Results Start: 03-01-2023 End: 03-01-2023 ambulatory MICHEL A CHRISTOPHEERER Facility:[facility] Start: 03-01-2023 End: 03-01-2023 Patient encounter procedure Savanah Olmos DO Work Phone: [facility] Medicine Comment on above: Stage 3b chronic kid mago disease (HCC) (Primary Dx); Type 2 diabetes mellitus with stage 3b chronic kidney disease, without long-term current use of insulin (HCC); Benign hypertension with chronic kidney disease, stage III (HCC); Hypoalbuminemia Start: 02-25-2023 Telephone encounter Rossy Wright APRN.SOLE CONFORMING MACHINE OPERATOR Work Phone: Kidney Medicine Comment on above: lab orders faxed to [facility] Start: 01-25-2023 Follow-up encounter Niranjan lomeli MD Work Phone: [facility] Start: 01-25-2023 ICD Remote F/U Niranjan Chacko MD Work Phone: [facility] Start: 12-26-2022 Refill Lakesha N Daniel Mancilla Work Phone: Cardiology Comment on above: Refill Request (ator vastatin) Start: 08-13-2022 End: 08-13-2022 Patient encounter procedure Rossy Wright APRN.SOLE CONFORMING MACHINE OPERATOR Work Phone: Kidney Medicine Comment on above: [...] Follow-up encounter Bret torres MD Work Phone: [facility] Start: 07-04-2022 End: 07-04-2022 Patient encounter procedure Bret Holder MD Work Phone: [facility] Comment on above: 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 [facility] Start: 06-16-2022 End: 06-17-[address] LISA APPLE . Facility:[facility] Start: 06-16-2022 End: 06-17-2022 Encounter for preprocedural laboratory examination DR LISA APPLE . Facility:[facility] Start: 05-23-2022 Telephone encounter Lakesha Ernst ot, MD Work Phone: Cardiology Comment on above: Request to hold Plav ix Start: 04-19-2022 Follow-up encounter Bret torres MD Work Phone: [facility] Start: 04-19-2022 ICD Remote F/U Bret Holder MD Work Phone: [facility] Start: 03-27-2022 End: 03-28-2022 ambulatory [...] Follow-up encounter Bret torres MD Work Phone: [facility] Start: 02-09-2022 ICD Remote F/U Bret Holder MD Work Phone: [facility] Start: 02-08-2022 End: 02-09-[address] DOCTOR WAHL Facility:[facility] Start: 01-31-2022 Telephone encounter Rossy Wright APRN.SOLE CONFORMING MACHINE OPERATOR Work Phone: [facility] [place] Comment on above: Lab Orders Start: 01-12-2022 Telephone encounter Lakesha Ernst ot, MD Work Phone: Cardiology Comment on above: Future Appointment Start: 01-08-2022 Telephone encounter Bret torres MD Work Phone: Cardiology Comment on above: Established Patient Follow-Up; Future Appointment Start: 12-29-2021 Follow-up encounter Bret torres MD Work Phone: [facility] Start: 12-29-2021 ICD Remote F/U Bret Holder MD Work Phone: [facility] Start: 12-29-2021 Refill Lakesha Mancilla Work Phone: Cardiology Comment on above: Refill Request (clop idogrel) Start: 12-21-2021 Follow-up encounter Bret torres MD Work Phone: [facility] Start: 12-21-2021 Patient encounter procedure Bret Holder MD Work Phone: [facility] Start: 12-19-2021 Telephone encounter Bret torres MD Work Phone: Cardiology Comment on above: Appointment Start: 12-18-2021 Follow-up encounter Bret trores MD Work Phone: [facility] Start: 12-18-2021 ICD Remote F/U Bret Holder MD Work Phone: [facility] Start: 12-13-2021 Follow-up encounter Bret torres MD Work Phone: [facility] Start: 12-13-2021 ICD Remote F/U Bret Holder MD Work Phone: [facility] Start: 11-30-2021 Follow-up encounter Bret torres MD Work Phone: [facility] Start: 11-30-2021 Patient encounter procedure Bret Holder MD Work Phone: [facility] Start: 11-06-2021 Orders Only [place] Nena Tamannadaniel nd MENTAL HEALTH ASSOCIATE.SOLE CONFORMING MACHINE OPERATOR Work Phone: Cardiology Comment on above: Cardiomyopathy, isch emic (Primary Dx) Start: 11-01-2021 Telephone encounter Bret torres MD Work Phone: Cardiology Comment on above: Courtesy Call (Surve y ) Start: 10-31-2021 Follow-up encounter Bret torres MD Work Phone: [facility] Start: 10-31-2021 ICD Remote F/U Bret Holder MD Work Phone: [facility] Start: 10-23-2021 Follow-up encounter Bret torres MD Work Phone: [facility] Start: 10-23-2021 ICD Remote F/U Bret Holder MD Work Phone: [facility] Start: 10-20-2021 ambulatory Apolonia Diaz RN NURSE USER EXPERIENCE DEVELOPER Comment on above: Information Start: 10-18-2021 Follow-up encounter Bret torres MD Work Phone: [facility] Start: 10-18-2021 Patient encounter procedure Bret Holder MD Work Phone: [facility] Start: 10-17-2021 ambulatory Penelope berry Comment on above: Patient Education Start: 10-04-2021 Follow-up encounter Bret torres MD Work Phone: [facility] Start: 10-04-2021 End: 10-04-2021 Patient encounter procedure Bret Holder MD Work Phone: [facility] Comment on above: Cardiomyopathy, isch emic (Primary Dx); Chronic systolic congestive heart failure (HCC); 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 Start: 09-28-2021 Follow-up encounter Bret torres MD Work Phone: [facility] Start: 09-28-2021 ICD Remote F/U Bret Holder MD Work Phone: [facility] Start: 09-19-2021 End: 09-20-[address] MICHEL ALCAZAR Facility:[facility] Start: 08-29-2021 Follow-up encounter Bret torres MD Work Phone: [facility] Start: 08-29-2021 ICD Remote F/U Bret Holder MD Work Phone: [facility] Start: 08-10-2021 End: 08-11-[address] DOCTOR WAHL Facility:[facility] Procedures Date Procedure Procedure Detail Performing Clinician [...] above: Performed By: #### C K #### [facility] [address] [place] [address] Dr. 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 Expected: 04/16/2024, Expires: 07/16/2024 [facility] Work Phone: Comment on above: Expected: 04/16/2024 , Expires: 07/16/2024 Start: 04-16-2024 End: 07-16-2024 Lipid 1996 panel - Serum or Plasma LIPID PANEL BASIC Lab Routine 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 Expected: 04/16/2024, Expires: 07/16/2024 [facility] Comment on above: Expected: 04/16/2024 , Expires: 07/16/2024 Start: 03-10-2024 End: 03-10-2024 Patient encounter procedure 03/10/2024 11:30 AM EDT Office Visit Kidney Medicine [id number] [place] [address] Rossy Wright APRN.SOLE CONFORMING MACHINE OPERATOR [address] [place] [address] 6 month f/u Kidney Medicine Comment on above: 6 month f/u Start: 03-04-2024 End: 06-03-2024 CBC panel - Blood by Automated count COMPLETE BLOOD COUNT Lab Routine Stage 3b chronic kidney disease (HCC) Type 2 diabetes mellitus with stage 3b chronic kidney disease, without long-term current use of insulin (HCC) Expected: 03/04/2024, Expires: 06/03/2024 [facility] Work Phone: Comment on above: Expected: 03/04/2024 , Expires: 06/03/2024 Start: 03-04-2024 End: 06-03-2024 Microalbumin/Creatinine [Mass Ratio] in Urine ALBUMIN/CREATININE RATIO, URINE Lab Routine Stage 3b chronic kidney disease (HCC) Type 2 diabetes mellitus with stage 3b chronic kidney disease, without long-term current use of insulin (HCC) Expected: 03/04/2024, Expires: 06/03/2024 [facility] Work Phone: Comment on above: Expected: 03/04/2024 , Expires: 06/03/2024 Start: 03-04-2024 End: 06-03-2024 Renal function 2000 panel - Serum or Plasma RENAL FUNCTION PANEL Lab Routine Stage 3b chronic kidney disease (HCC) Type 2 diabetes mellitus with stage 3b chronic kidney disease, without long-term current use of insulin (HCC) Expected: 03/04/2024, Expires: 06/03/2024 [facility] Work Phone: Comment on above: Expected: 03/04/2024 , Expires: 06/03/2024 Start: 09-07-2023 Covid-19 Vaccine () Covid-19 Vaccine () [facility] Start: 07-04-2023 BP CONTROLLED (<130/80) BP CONTROLLE D (<130/80) [facility] Start: 07-04-2023 HEMOGLOBIN/HEMATOCRIT HEMOGLOBIN/HEM ATOCRIT [facility] Start: 05-20-2023 Advance Directive Discussion Advance Directive Discussion [facility] Start: 05-20-2023 Behavioral Health Screening Behavioral Health Screening [facility] Start: 05-20-2023 Depression Assessment Depression Ass essment [facility] Start: 02-13-2023 BP CONTROLLED (<130/80) BP CONTROLLE D (<130/80) [facility] Start: 02-13-2023 End: 04-15-2023 CBC panel - Blood by Automated count CBC Lab Routine Benign hypertension with chronic kidney disease, 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, unspecified whether prison insulin use (HCC) Essential hypertension Expected: 02/13/2023, Expires: 04/15/2023 [facility] Work Phone: Comment on above: Expected: 02/13/2023 , Expires: 04/15/2023 Start: 02-13-2023 End: 04-15-2023 Renal function 2000 panel - Serum or Plasma RENAL FUNCTION PANEL Lab Routine Benign hypertension with chronic kidney disease, 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, unspecified whether home service technician insulin use (HCC) Essential hypertension Expected: 02/13/2023, Expires: 04/15/2023 [facility] Work Phone: Comment on above: Expected: 02/13/2023 , Expires: 04/15/2023 Start: 01-18-2023 Covid-19 Vaccine () Covid-19 Vaccine () [facility] Start: 01-18-2023 Influenza vaccination C [facility] Start: 10-04-2022 BP CONTROLLED (<130/80) BP CONTROLLE D (<130/80) [facility] Start: 10-04-2022 HEMOGLOBIN/HEMATOCRIT HEMOGLOBIN/HEM ATOCRIT [facility] Start: 10-04-2022 SERUM CREATININE SERUM CREATININE [facility] Start: 08-08-2022 BP CONTROLLED (<130/80) BP CONTROLLE D (<130/80) [facility] Start: 08-03-2022 COVID-19 VACCINE (6 - Moderna series) COVID-19 VACCINE (6 - Moderna series) [facility] Start: 06-26-2022 End: 01-18-2023 Basic metabolic 2000 panel - Serum or Plasma BASIC METABOLIC PNL Lab Routine Cardiomyopathy, ischemic Chronic systolic congestive heart failure (HCC) 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 Expected: 06/26/2022, Expires: 01/18/2023 [facility] Work Phone: Comment on above: Expected: 06/26/2022 , Expires: 01/18/2023 Start: 05-20-2022 ADVANCE DIRECTIVE DISCUSSION ADVANCE DIRECTIVE DISCUSSION [facility] Start: 05-20-2022 DEPRESSION ASSESSMENT DEPRESSION ASS ESSMENT [facility] Start: 01-18-2022 Influenza vaccination INFLUENZA (#1) [facility] Start: 01-09-2022 Hepatitis B screening Urine Albumin:Creatinine Ratio [facility] Start: 01-09-2022 SERUM CREATININE SERUM CREATININE [facility] Start: 10-16-2021 COVID-19 VACCINE (5 - Booster for Moderna series) COVID-19 VACCINE (5 - Booster for Moderna series) [facility] Start: 10-12-2021 Hepatitis B surface antibody level LDL CHOLESTEROL [facility] Start: 07-18-2021 COVID-19 VACCINE (4 - Booster for Moderna series) COVID-19 VACCINE (4 - Booster for Moderna series) [facility] Start: 05-20-2021 ADVANCE DIRECTIVE DISCUSSION ADVANCE DIRECTIVE DISCUSSION [facility] Start: 05-20-2021 [facility] Start: 09-04-2019 HEMOGLOBIN/HEMATOCRIT HEMOGLOBIN/HEM ATOCRIT [facility] Start: 09-04-2019 Hepatitis B screening URINE ALBUMIN:CREATININE RATIO [facility] Start: 11-06-2018 Hemoglobin A1c measurement HbA1C [facility] Start: 2006 PNEUMOVAX AGE 65 AND OVER WITH 5YR LOOKBACK (#1) PNEUMOVAX AGE 65 AND OVER WITH 5YR LOOKBACK (#1) [facility] Start: 2001 Hepatitis B Vaccine (1 of 3 - Risk 3-dose series) Hepatitis B Vaccine (1 of 3 - Risk 3-dose series) [facility] Start: 2001 RSV Vaccine (1 - 1-d ose 60+ series) RSV Vaccine (1 - 1-dose 60+ series) [facility] Start: 1991 SHINGRIX VACCINE (1 of 2) SHINGRIX VACCINE (1 of 2) [facility] Start: 1960 Urine microalbumin profile [facility] Start: 1959 ANNUAL PCP TEAM LINE SUPERVISOR TATIANA DISEASE VISIT ANNUAL PCP TEAM CHRONIC DISEASE VISIT [facility] Start: 1953 Adult depression screening assessment DEPRESSION SCREENING [facility] Start: 1951 3 comp foot exam completed DIABETIC FOOT EXAM [facility] Start: 1951 Diabetic foot examination Diabetic Foot Exam [facility] Start: 1951 Glaucoma screening Dilated Retinal E xam [facility] Start: 1951 Hepatitis C antibody , confirmatory test DILATED RETINAL EXAM [facility] Start: 1947 Pneumococcal Vaccine : 65+ (1 - PCV) Pneumococcal Vaccine: 65+ (1 - PCV) [facility] Start: 1947 Pneumococcal Vaccine : 65+ (1 of 2 - PCV) Pneumococcal Vaccine: 65+ (1 of 2 - PCV) [facility] Start: 1947 PNEUMOCOCCAL: 65+ (1 - PCV) PNEUMOCOCCAL: 65+ (1 - PCV) [facility] Start: 1946 Hemoglobin A1c/Hemoglobin.total in Blood HBA1C [facility] End: 11-06-2022 ECG COMPLETE ECG COMPLETE ECG Routine Cardiomyopathy, ischemic 1 Occurrences starting 11/06/2021 until 11/06/2022 [facility] Work Phone: Comment on above: 1 Occurrences starti ng 11/06/2021 until 11/06/2022 End: 08-04-2023 ECG COMPLETE ECG COMPLETE ECG Routine Pacemaker Chronic systolic congestive heart failure (HCC) 1 Occurrences starting 08/03/2022 until 08/04/2023 [facility] Work Phone: Comment on above: 1 Occurrences starti ng 08/03/2022 until 08/04/2023 End: 10-14-2024 ECG COMPLETE ECG COMPLETE ECG Routine 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 1 Occurrences starting 10/15/2023 until 10/14/2024 [facility] Comment on above: 1 Occurrences starti ng 10/15/2023 until 10/14/2024 [facility] Immunizations Immunization Date Immunization Notes Care Provider Fa cili 02-13-2022 influenza virus vacc ine, unspecified formulation Niranjan Chacko MD Work Phone: [facility] Payers Date Payer Category Payer Unknown [employer] SUPPLEMENT [id number] 2009-Present [phone] [address] [place] [address] Indemnity [id number] 2009 Unknown [employer]IC[employer] SUPPLEMENT [id number] 2009-Present [phone] [address] [place] [address] Indemnity [id number] 2006 Medicare MEDICARE MEDICAR E A AND B [id number] 2006-Present [phone] [place] [address] Medicare [id number] 2006 Medicare MEDICARE MEDICAR E A AND B [id number] 2006-Present [phone] [place] [address] Medicare [id number] 1959 Medicare [id number] 1959 Unknown [id number] 1941 Unknown [id number] 3 1941 Unknown [id number] 3 1941 Unknown [id number] 3 1941 Unknown [id number] 3 1941 Unknown [id number] 3 1941 Unknown [id number] 3 1941 Unknown [id number] 3 1941 Unknown [id number] 3 1941 Unknown [id number] 3 Social History Date Type Detail Facility Start: 12-05-2016 End: 02-13-2022 Tobacco smoking status VAIS Never smoked tobacco [facility] Start: 12-05-2016 End: 02-13-2022 Tobacco use and exposure Smokeless tobacco non-user [facility] Start: 08-08-2021 End: 07-31-2023 Alcohol intake Current non-drinker of alcohol (finding) [facility] Start: 1941 Sex Assigned At Male C [facility] Start: 07-22-2021 End: 10-18-2021 Exposure to SARS-CoV-2 (event) Not sure [facility] Start: 01-11-2022 End: 03-14-2022 Exposure to SARS-CoV-2 (event) Unable to assess [facility] Start: 08-13-2022 End: 03-01-2023 History of Social function [facility] Start: 08-13-2022 End: 03-01-2023 Tobacco use panel [facility] National Score (1-10 0), lower number is lower risk 67 [facility] Start: 08-11-2018 Gender identity Identifies as male gender (finding) [facility] Start: 08-11-2018 Sexual orientation Heterosexual (jorge carrasco) [facility] Medical Equipment Procedure Code Equipment Code Equipment Origin al Text Equipment Identifier Dates once daily. USE TO TEST BLOOD SUGAR DAILY [id number] Start: 06-26-2022 Comment on above: once daily. USE TO T EST BLOOD SUGAR DAILY [id number] Start: 10-18-2021 Goals Date Patient Goal Desired Activity /State Personal health goal Clinical Notes 10-04-2021 to 09-03-2023 Rossy Wright APRN.SOLE CONFORMING MACHINE OPERATOR - 09/03/2023 1:50 PM Lakesha Dozier MD - 08/01/2023 9:22 AM EDTTelephone Encounter - Winter Andre Sahni - 07/22/2023 12:29 PM ESTPatient Instructions Note Date & Type Note Facility 09-03-2023 Note HNO ID: [id number] Author: ROSSY WRIGHT APRN.SOLE CONFORMING MACHINE OPERATOR Service: ? Author Type: Nurse Practitioner Type: [...] with PAST MEDICAL HISTORY Diagnosis Date A-fib (HCC) CAD (coronary artery disease) s/p CABG 4v, pacemaker CKD (chronic kidney disease) stage 3, GFR 30-59 ml/min (HCC) Diabetes mellitus type 2 in obese GERD [...] follow up in 6 months Rossy Wright APRN.SOLE CONFORMING MACHINE OPERATOR [facility] 09-03-2023 History of Presen t illness [...] with PAST MEDICAL HISTORY Diagnosis Date A-fib ([facility]) CAD (coronary artery disease) s/p CABG 4v, pacemaker CKD (chronic kidney disease) stage 3, GFR 30-59 ml/min ([facility]) Diabetes mellitus type 2 in obese GERD [...] follow up in 6 months Rossy Wright APRN.SOLE CONFORMING MACHINE OPERATOR documented in this encounter [facility] 08-01-2023 Note HNO ID: [id number] Author: LAKESHA SANCHEZ MD Service: ? Author Type: Physician Type: Progress Notes Filed: 10/15/2023 10:22 Note Text: [facility] [place] [facility] Department of Cardiovascular Medicine SECTION OF CLINICAL CARDIOLOGY OUTPATIENT VISIT DATE August 01, 2023 OUTPATIENT VISIT TYPE ESTABLISHED PRIMARY CARE PHYSICIAN: Michel Alcazar MD ([facility]) [address] [place] [address] REFERRING PHYSICIAN: No referring provider defined for this encounter. CHIEF COMPLAINT: Obstructive coronary artery disease complicated by myocardial infarction Ischemic cardiomyopathy Status post coronary artery bypass graft SATELLITE MANAGER-D placement Atrial fibrillation on Apixaban low dose [...] above PAST MEDICAL HISTORY Diagnosis Date A-fib (HCC) CAD (coronary artery disease) s/p CABG 4v, pacemaker CKD (chronic kidney disease) stage 3, GFR 30-59 ml/min ([facility]) Diabetes mellitus type 2 in obese GERD [...] per day 7 07/25/2023 Insomnia Severity Index (MLILY) Score Incomplete 07/25/2023 PROMIS [employer] - [...] Take 0.5 tablets by mouth once daily. OctonotcoUCH ULTRA TEST test strip once daily. USE [...] rub and n (more content not included)... [facility] 08-01-2023 History of Presen t illness Narrative Images from the original note were not included. [facility] [place] [facility] Department of Cardiovascular Medicine SECTION OF CLINICAL CARDIOLOGY OUTPATIENT VISIT DATE August 01, 2023 OUTPATIENT VISIT TYPE ESTABLISHED PRIMARY CARE PHYSICIAN: Michel Alcazar MD ([facility]) [address] [place] [address] REFERRING PHYSICIAN: No referring provider defined for this encounter. CHIEF COMPLAINT: Obstructive coronary artery disease complicated by myocardial infarction Ischemic cardiomyopathy Status post coronary artery bypass graft SATELLITE MANAGER-D placement Atrial fibrillation on Apixaban low dose [...] above PAST MEDICAL HISTORY Diagnosis Date A-fib ([facility]) CAD (coronary artery disease) s/p CABG 4v, pacemaker CKD (chronic kidney disease) stage 3, GFR 30-59 ml/min ([facility]) Diabetes mellitus type 2 in obese GERD [...] Take 0.5 tablets by mouth once daily. mTraks ULTRA TEST test strip once daily. USE [...] CONTACT INFORMATION: Lakesha Sanchez M.D., F.A.C.C. Staff Molder [facility] Desk [id number] [place] [address] Office - [phone] extension [phone] Office Appointments: [phone] -[phone] extension [phone] documented in this encounter [facility] 07-22-2023 Miscellaneous Notes Received records from [facility] - ED visit 07-09-2023 Uploaded to scanned documents Appt on 07/31/2023 Last appt - 12/26/2022 Andre Torres [facility] Asst III, Clinical Cardiology documented in this encounter [facility] 03-27-2023 Note HNO ID: [id number] Author: Lyle De La Rosa MD Service: ? Author Type: Physician Type: Progress Notes Filed: 03/27/2023 1:45 PM Note Text: [facility] [place] [facility] Department of Cardiovascular Medicine SECTION OF CARDIAC PACING and ELECTROPHYSIOLOGY OUTPATIENT VISIT DATE March 27, 2023 OUTPATIENT VISIT TYPE ESTABLISHED PRIMARY CARE PHYSICIAN: Michel Alcazar MD ([facility]) [address] [place] [address] CHIEF COMPLAINT: SATELLITE MANAGER-D HISTORY OF PRESENT ILLNESS/ NURSING INTAKE HISTORY: Mr. Taylor is a 82 year old male who presents today for follow-up visit for device management. He has a history of CAD s/p CABG x4 (early 1999s, ischemic cardiomyopathy s/p SATELLITE MANAGER-D 03/23/14, low-burden PAF (eliquis- once daily only [...] syncope. PAST MEDICAL HISTORY Diagnosis Date A-fib ([facility]) CAD (coronary artery disease) s/p CABG 4v, pacemaker CKD (chronic kidney disease) stage 3, GFR 30-59 ml/min ([facility]) Diabetes mellitus type 2 in obese ([facility]) GERD (gastroesophageal reflux disease) Hyperlipidemia Hypertension PAST [...] Last remote listed (more content not included)... [facility] History of Presen t illness Narrative Images from the original note were not included. [facility] [place] Chema Mckeon Department of Cardiovascular Medicine SECTION OF CARDIAC PACING and ELECTROPHYSIOLOGY OUTPATIENT VISIT DATE March 27, 2023 OUTPATIENT VISIT TYPE ESTABLISHED PRIMARY CARE PHYSICIAN: Michel Alcazar MD ([facility]) [address] [place] [address] CHIEF COMPLAINT: SATELLITE MANAGER-D HISTORY OF PRESENT ILLNESS/ NURSING INTAKE HISTORY: Mr. Taylor is a 82 year old male who presents today for follow-up visit for device management. He has a history of CAD s/p CABG x4 (early 1999s, ischemic cardiomyopathy s/p SATELLITE MANAGER-D 03/23/14, low-burden PAF (eliquis- once daily only [...] syncope. PAST MEDICAL HISTORY Diagnosis Date A-fib ([facility]) CAD (coronary artery disease) s/p CABG 4v, pacemaker CKD (chronic kidney disease) stage 3, GFR 30-59 ml/min ([facility]) Diabetes mellitus type 2 in obese ([facility]) GERD (gastroesophageal reflux disease) Hyperlipidemia Hypertension PAST [...] Take 0.5 tablets by mouth once daily. Project TalentsTOUCH ULTRA TEST test strip once daily. USE [...] old male with history of ICM and SATELLITE MANAGER-D who presents for routine device follow-up. Device [...] Rosa MD documented in this encounter [facility] 03-05-2023 Miscellaneous Notes Called patient. He had lab work done with UA and UPCR/ UACR locally. Received results today and did not show protein loss. UACR was 25.7 and UPCR was 0.12. Savanah Olmos DO March 05, 2023, 3:57 PM documented in this encounter [facility] 03-01-2023 Note HNO ID: [id number] Author: Savanah Olmos DO Service: ? Author [...] 1.5-1.8mg/dL) PAST MEDICAL HISTORY Diagnosis Date A-fib ([facility]) CAD (coronary artery disease) s/p CABG 4v, pacemaker CKD (chronic kidney disease) stage 3, GFR 30-59 ml/min ([facility]) Diabetes mellitus type 2 in obese ([facility]) GERD (gastroesophageal reflux disease) Hyperlipidemia Hypertension PAST [...] 5 minutes as needed for chest pain. [employer] Talents[employer]CH ULTRA TEST test strip once daily. USE [...] Lab Results Compone (more content not included)... [facility] 03-01-2023 History of Presen t illness [...] 1.5-1.8mg/dL) PAST MEDICAL HISTORY Diagnosis Date A-fib ([facility]) CAD (coronary artery disease) s/p CABG 4v, pacemaker CKD (chronic kidney disease) stage 3, GFR 30-59 ml/min ([facility]) Diabetes mellitus type 2 in obese ([facility]) GERD (gastroesophageal reflux disease) Hyperlipidemia Hypertension PAST [...] Negative Ketones, Urine Trace, Negative Negative Specific [place], Ur 1.005 - 1.030 1.016 Hemoglobin/Blood,Ur Negative, [...] up in 6 months with Rossy Wright, sooner prn. Savanah Olmos DO documented in this encounter [facility] 03-01-2023 Instructions Savanah Olmos DO - [...] if able to, please call me at [phone] if you are ordered a test requiring iodinated contrast Please see Rossy Wright back in 6 months with labs prior to visit I did give you two order forms for lab work - one to do now and one prior to your visit with Rossy documented in this encounter [facility] 02-25-2023 Miscellaneous Notes The requested document has been faxed to [phone]. Received a fax confirmation of OK on 02/25/23. I called and spoke with Micheal. I informed him of the below message from Rossy Wright. Micheal agreed with plan as stated below. Ifeanyi Gamble of [facility] Taylor is calling Rossy Wright APRN.SOLE CONFORMING MACHINE OPERATOR today to request lab orders be faxed to [facility] at [phone]. They need this shane because they have an office visit Saturday. They want to go to the lab tomorrow if possible. Please call Alma Rosa when orders are faxed. They will fax results to [employer]. No chief complaint on file. Patient has been identified by name and birthdate. Duration of symptoms: Person calling: spouse: Alma Rosa Call patient at: Home [phone] (home) [phone] (cell) Was an appointment scheduled: Closing statement: Beryl Anderson documented in this encounter [facility] 12-26-2022 Miscellaneous Notes Request from pharmacy [...] once daily. Last visit with this provider 2-15-2023 Next appointment in this department one year follow up Andre Sahni documented in this encounter [facility] 08-13-2022 History of Presen t illness [...] now. PAST MEDICAL HISTORY Diagnosis Date A-fib ([facility]) CAD (coronary artery disease) s/p CABG 4v, pacemaker CKD (chronic kidney disease) stage 3, GFR 30-59 ml/min ([facility]) Diabetes mellitus type 2 in obese ([facility]) GERD (gastroesophageal reflux disease) Hyperlipidemia Hypertension General: [...] follow up in 6 months Rossy Wright APRN.SOLE CONFORMING MACHINE OPERATOR documented in this encounter [facility] 08-03-2022 Miscellaneous Notes Lab results received and placed in provider's mailbox for review. Esther Quach MA Called and spoke with [facility] staff. Requested they fax lab results to our office. Will update once labs have been received. Esther Quach MA Patient spouse is calling Rossy Wright APRN.CNP today to request the office to call [facility] to receive the labs that were completed while patient was inpatient in the hospital in early July. She request Rossy Wright to review those labs and see if they will suffice for the upcoming OV on 08/13 [facility] [employer]: [phone] [place] fax [phone] Patient has been identified by name and birthdate. Person calling: spouse: Call patient at: at home [phone] (home) Was an appointment scheduled: No Closing statement: Results or non-symptom based questions: Thank you for calling [facility], your call will be returned within the next business day. Uyen Andino Ma documented in this encounter [facility] 07-04-2022 History of Presen t illness Narrative Images from the original note were not included. [facility] [place] [facility] Department of Cardiovascular Medicine SECTION OF CLINICAL CARDIOLOGY OUTPATIENT VISIT DATE July 04, 2022 OUTPATIENT VISIT TYPE ESTABLISHED PRIMARY CARE PHYSICIAN: Michel Alcazar MD ([facility]) [address] [facility] [facility] [place] [address] REFERRING PHYSICIAN: SELF CHIEF COMPLAINT: Obstructive coronary artery disease complicated by myocardial infarction Ischemic cardiomyopathy Status post coronary artery bypass graft SATELLITE MANAGER-D placement Atrial fibrillation on Apixaban low dose [...] cardiomyopathy, reduced ejection fraction 2013 Status post SATELLITE MANAGER-D placement in 2013, replaced 10/2021 EF 32% in 2016 > EF 41% in 09/2021 - BB: Metoprolol succinate 50 mg daily - DAVID/ARB/ARNI: Lisinopril 5 mg daily - MARTHA: Aldactone 12.5 mg daily - Hydral/ISDN: Isosorbide mononitrate 30 mg daily - SGTL2: - - Diuretic: Furosemide 20 mg daily # Atrial fibrillation [id number] Anticoagulation with Apixaban 2.5 mg twice [...] for diagnostic colonoscopy on July 18 in [place]. Otherwise he does not have any complaints. [...] kidney disease) stage 3, GFR 30-59 ml/min ([facility]) Diabetes mellitus type 2 in obese ([facility]) GERD (gastroesophageal reflux disease) Hyperlipidemia Hypertension PAST [...] kidney problems Sulfa (Sulfonamide * Itching MEDICATIONS: ONETOUCH ULTRA TEST test strip once daily. [...] MD PGY 2 Internal Medicine CONTACT INFORMATION: [facility] STAFF PHYSICIAN NOTE OF PERSONAL INVOLVEMENT IN [...] 5:16 AM documented in this encounter [facility] 07-03-2022 Miscellaneous Notes Records received from [facility] by fax. Records uploaded to OPD and OnBase. Patient has a future appointment on 07/04/22. Date of last OV 10/04/21. Herb Sosa July 03, 2022 9:40 AM documented in this encounter [facility] 05-24-2022 Miscellaneous Notes Images from the original note were not included. FAXED COMPLETED/SIGNED FORM - VJ[facility] May 23, 2022 Patient Contact Number: [phone] (home) [phone] (cell) Physician: Lakesha Sanchez MD Last Office Visit: 03/13/2022 Last Visit this dept: 10/04/2021 Next visit - 07/04/2022 Reason For Call: Received request from [facility] for patient to hold plavix for 7 days and for surgical clearance - colonoscopy. Place in physician's office for review and comment. Andre Torres, Admin III Clinical Cardiology J2-4 documented in this encounter [facility] 03-23-2022 Miscellaneous Notes Documentation scanned into outside records database. documented in this encounter [facility] 03-16-2022 Miscellaneous Notes Returned call, spoke with . Answered all questions at this time. Added pt on for device check in June while he is here for other appointments. Patients Alma Rosa segal. Has questions/concerns about device and wants to know if pt should send remote transmission. Can be reached at documented in this encounter [facility] 03-13-2022 Miscellaneous Notes See follow up message to Dr Sanchez's office. Will review with Dr Holder when he is back in the office. Heidi Taylor RN March 12, 2022 Patient Contact Number: Spouse: [phone] (home) Dtr Saadia [phone](cell) Patient last seen within the last year: Yes Reason For Call: Mrs Taylor called to inform office that patient is in [facility]. He went to ER due to excessive bleeding from the rectum. There are concerns that patient is over anticoagulated. He is on both Plavix and Eliquis. Also concerns that bleeding may be due to hemorrhoids. Physician:Bret Holder MD documented in this encounter [facility] 01-31-2022 Miscellaneous Notes Images from the original note were not included. The below labs have been filled out and placed in the outgoing mail as of 01/31/22. Ifeanyi Wright APRN.SOLE CONFORMING MACHINE OPERATOR You Please send lab req for renal panel, CBC, PTH and Vit D 25 Thanks Patient is calling in asking for labs to be mailed over to them. He will get them done some where locally. documented in this encounter [facility] 01-12-2022 Miscellaneous Notes Images from the original note were not included. Email sent to Desk F14 documented in this encounter [facility] 01-09-2022 Miscellaneous Notes Attempted to reach patient. Left message on patient home BRANDEN. Heidi Taylor RN January 08, 2022 Patient Contact Number: [phone] (home) [phone] (cell) Physician: Bret Calix MD Last Office [...] change. Should patient be referred to the SATELLITE MANAGER-HF clinic for evaluation? Andre Torres, Admin III Clinical Cardiology J2-4 Electronically signed by Andre Torres [facility] at 01/08/2022 10:45 AM EDT documented in this encounter [facility] 12-29-2021 Miscellaneous Notes Request from pharmacy for refills as follows: Requested Prescriptions Pending Prescriptions Disp Refills clopidogrel (PLAVIX) 75 mg tablet 90 tablet 4 Sig: Take 1 tablet by mouth once daily. Last encounter with this provider 10/04/2021 Last office visit in this department was 10/04/2021 Next appointment in this department Visit date not found Andre Sahni documented in this encounter [facility] 12-19-2021 Miscellaneous Notes Mr Taylor was called today about an in-clinic check of his poor RV sensing. He will be coming into device clinic 12/21/2021 at 1pm. documented in this encounter [facility] 11-01-2021 Miscellaneous Notes Post Implant follow [...] Dept Phone 11/30/2021 2:15 PM DEVICE CL[facility]IC In J Bldg [phone] Any scheduling issues:No Questions moving forward: No Christiana Neumann documented in this encounter [facility] 10-20-2021 Miscellaneous Notes Patient's calling with questions about how to use cellphone like device they received in the mail with patients ICD. Caller conferenced to [facility] to page labor commissioner provider for Dr. Bret Holder. documented in this encounter [facility] 10-17-2021 Nurse Note THE FOLLOWING WAS [...] discussed with Physician, nurse practitioner or Physician insurance assistant upon discharge Instructions for transmitting EKG to Monitoring Center 3 month follow up instructions Contact number for information and questions Patient Evaluation: Verbalizes understanding Follow Up Plan: Follow up as directed by MD. Supplemental Material Given: Written Material Patient education regarding radiation exposure. Instructed By Penelope Truong RN. In Department of CARDIOLOGY. documented in this encounter [facility] 10-04-2021 History of Presen t illness Narrative Images from the original note were not included. [facility] [place] [facility]ke[facility] Department of Cardiovascular Medicine SECTION OF CLINICAL CARDIOLOGY OUTPATIENT VISIT DATE October 04, 2021 OUTPATIENT VISIT TYPE ESTABLISHED PRIMARY CARE PHYSICIAN: Michel Alcazar MD ([facility]) [address] [place] [address] REFERRING PHYSICIAN: Lakesha Sanchez [address] [facility] [address] CHIEF COMPLAINT: Follow up for hx of [...] kidney disease) stage 3, GFR 30-59 ml/min ([facility]) Diabetes mellitus type 2 in obese ([facility]) GERD (gastroesophageal reflux disease) Hyperlipidemia Hypertension PAST [...] CONTACT INFORMATION: Lakesha Sanchez M.D., F.A.C.C. Staff Molder [facility] Desk J2-[address] [place] [address] Office [phone] extension [phone] Office Appointments: [phone] extension [phone] Medical Decision Making: Problems: Moderate: 2+ stable chronic illnesses Data: Unique test result(s) reviewed: 3+ Risk: Moderate: Drug management Medical Decision Making Level: 4 - Moderate documented in this encounter [facility] Evaluation note Diagnosis Cardiomyopathy, ischemic- Primary Other specified forms of chronic ischemic heart disease Chronic systolic congestive heart failure (HCC) Chronic systolic heart failure 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 Ischemic cardiomyopathy Other specified forms of chronic ischemic heart disease Chronic systolic CHF (congestive heart failure) (HCC) Chronic systolic heart failure PVC (premature ventricular contraction) Other premature beats [facility] Diagnosis Cardiomyopathy, ischemic- Primary Other specified forms of chronic ischemic heart disease [facility] Diagnosis Cardiomyopathy, ischemic- Primary Other specified forms of chronic ischemic heart disease Chronic systolic congestive heart failure (HCC) Chronic systolic heart failure 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 [facility] Diagnosis 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- Primary Cardiomyopathy, ischemic Other specified forms of chronic ischemic heart disease Bright red blood per rectum Hemorrhage of rectum and anus 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 Automatic implantable cardiac defibrillator in situ Atrial fibrillation, chronic (HCC) Atrial fibrillation documented in this encounter [facility] note* Diagnosis Pacemaker- Primary Cardiac pacemaker in situ Chronic systolic congestive heart failure (HCC) Chronic systolic heart failure documented in this encounter [facility] note* Diagnosis Benign hypertension with chronic kidney disease, stage III (HCC)- Primary Benign hypertensive kidney disease with chronic kidney disease stage I through stage IV, or unspecified Stage 3b chronic kidney disease (HCC) Type 2 diabetes mellitus with stage 3b chronic kidney disease, unspecified whether prison insulin use (HCC) Essential hypertension Unspecified essential hypertension documented in this encounter [facility] note* Diagnosis Stage 3b chronic kidney disease (HCC)- Primary Type 2 diabetes mellitus with stage 3b chronic kidney disease, without long-term current use of insulin (HCC) Benign hypertension with chronic kidney disease, stage III (HCC) Benign hypertensive kidney disease with chronic kidney disease stage I through stage IV, or unspecified Hypoalbuminemia Other disorders of plasma protein metabolism documented in this encounter [facility] note* Diagnosis Cardiomyopathy, ischemic- Primary Other specified forms of chronic ischemic heart disease documented in this encounter [facility] note* Diagnosis Stage 3b chronic kidney disease (HCC)- Primary Type 2 diabetes mellitus with stage 3b chronic kidney disease, without long-term current use of insulin (HCC) documented in this encounter [facility] note* Diagnosis 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SOLE CONFORMING MACHINE OPERATOR [address] [place] [address] [address] Referral ID Status Reason Start Date Expiration Date Visits Requested Visits Authorized [id number] Pending Review Auto-Generat ed Referral 11/06/2021 11/06/2022 1 1 [facility] for referral (narrative)* Outpatient Procedure (Routine) - Authorized Specialty Diagnoses / Procedures Referred By Contac t Referred To Contact [facility] Diagnoses Pacemaker Chronic systolic congestive heart failure (HCC) Procedures ECG COMPLETE ECG ROUTINE ECG W/LEAST 12 LDS W/I&R Bret Holder MD [address] [place] [address] [address] Referral ID Status Reason Start Date Expiration Date Visits Requested Visits Authorized [id number] Authorized Auto-Generat ed Referral 08/03/2022 08/03/2023 1 1 [facility] for referral (narrative)* Outpatient Procedure (Routine) - Pending Review Specialty Diagnoses / Procedures Referred By Contac t Referred To Contact [facility] Diagnoses 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 Procedures ECG COMPLETE ECG ROUTINE ECG W/LEAST 12 LDS W/I&R Lakesha Sanchez MD [address] [facility] [address] [place] [address] [address] Referral ID Status Reason Start Date Expiration Date Visits Requested Visits Authorized [id number] Pending Review Auto-Generat ed Referral 10/15/2023 10/14/2024 1 1 * Transition of Care (Routine) - Ref Not Required Specialty Diagnoses / Procedures Referred By Contac t Referred To Contact [facility] Diagnoses 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 Procedures CARDIOVASCULAR MEDICINE OP FOLLOW UP APPT ORDER Lakesha Sancehz MD [address] [place] [address] [facility] [place] [address] [place] [address] Referral ID Status Reason Start Date Expiration Date Visits Requested Visits Authorized [id number] Ref Not Required PCP Requested Referral 10/14/2024 1 1 * Transition of Care (Routine) - Ref Not Required Specialty Diagnoses / Procedures Referred By Contac t Referred To Contact [facility] Diagnoses 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 Procedures CARDIOVASCULAR MEDICINE OP FOLLOW UP APPT ORDER Lakesha Sanchez MD [address] [place] [address] [facility] [place] [address] [place] [address] Referral ID Status Reason Start Date Expiration Date Visits Requested Visits Authorized [id number] Ref Not Required PCP Requested Referral 07/16/2024 10/14/2024 1 1 * Outpatient Procedure (Routine) - Pending Review Specialty Diagnoses / Procedures Referred By Contac t Referred To Contact [facility] Diagnoses 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 Procedures ECG COMPLETE ECG ROUTINE ECG W/LEAST 12 LDS W/I&R Lakesha Sanchez MD [address] [place] [address] [facility] [address] [place] [address] Referral ID Status Reason Start Date Expiration Date Visits Requested Visits Authorized [id number] Pending Review Auto-Generat ed Referral 10/15/2023 10/14/2024 1 1 [facility] Summary Purpose Family History No Family History Records FoundNo Family History Records FoundNo Family History Records Found Advance Directives No Advanced Directives Records FoundDocuments on File Type Date Recorded 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 Advance Directive(s) 10/06/2021 8:17 AM Documents on File Type Date Recorded 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 Advance Directive(s) 10/06/2021 8:17 AM Reason for Referral Specialty Diagnoses / Procedures Referred By Contac t Referred To Contact Procedures CARDIOVASCULAR MEDICINE OP FOLLOW UP APPT ORDER Lyle De La Rosa MD [address] [place] [address] Referral ID Status Reason Start Date Expiration Date Visits Requested Visits Authorized [id number] Ref Not Required PCP Requested Referral 03/27/2023 03/26/2024 1 1 Additional Source Comments (unrecognized sect ion and content) No Status Records FoundNo Status Records FoundNo Status Records Found INFORMATION SOURCE (unrecogn ized section and content) DATE CREATED AUTHOR 04/23/2020 [facility] DATE CREATED AUTHOR AUTHOR'S ORGANIZ ATION 07/27/2022 [facility] DATE CREATED AUTHOR AUTHOR'S ORGANIZ ATION 10/15/2023 [facility] Source Comments (unrecognize d section and content) In the event this informatio n is protected by the Federal Confidentiality of Alcohol and Drug Abuse Patient Records regulations: The Federal rules restrict any use of the information to criminally investigate or prosecute any alcohol or drug abuse patient.[facility] the event this information is protected by the Federal Confidentiality of Alcohol and Drug Abuse Patient Records regulations: The Federal rules restrict any use of the information to criminally investigate or prosecute any alcohol or drug abuse patient.[facility] the event this information is protected by the Federal Confidentiality of Alcohol and Drug Abuse Patient Records regulations: The Federal rules restrict any use of the information to criminally investigate or prosecute any alcohol or drug abuse patient.[facility] HospitalIn the event this information is protected by the Federal Confidentiality of Alcohol and Drug Abuse Patient Records regulations: The Federal rules restrict any use of the information to criminally investigate or prosecute any alcohol or drug abuse patient.[facility] HospitalIn the event this information is protected by the Federal Confidentiality of Alcohol and Drug Abuse Patient Records regulations: The Federal rules restrict any use of the information to criminally investigate or prosecute any alcohol or drug abuse patient.[facility] HospitalIn the event this information is protected by the Federal Confidentiality of Alcohol and Drug Abuse Patient Records regulations: The Federal rules restrict any use of the information to criminally investigate or prosecute any alcohol or drug abuse patient.[facility] HospitalIn the event this information is protected by the Federal Confidentiality of Alcohol and Drug Abuse Patient Records regulations: The Federal rules restrict any use of the information to criminally investigate or prosecute any alcohol or drug abuse patient.[facility] HospitalIn the event this information is protected by the Federal Confidentiality of Alcohol and Drug Abuse Patient Records regulations: The Federal rules restrict any use of the information to criminally investigate or prosecute any alcohol or drug abuse patient.[facility] HospitalIn the event this information is protected by the Federal Confidentiality of Alcohol and Drug Abuse Patient Records regulations: The Federal rules restrict any use of the information to criminally investigate or prosecute any alcohol or drug abuse patient.[facility] HospitalIn the event this information is protected by the Federal Confidentiality of Alcohol and Drug Abuse Patient Records regulations: The Federal rules restrict any use of the information to criminally investigate or prosecute any alcohol or drug abuse patient.[facility] HospitalIn the event this information is protected by the Federal Confidentiality of Alcohol and Drug Abuse Patient Records regulations: The Federal rules restrict any use of the information to criminally investigate or prosecute any alcohol or drug abuse patient.[facility] HospitalIn the event this information is protected by the Federal Confidentiality of Alcohol and Drug Abuse Patient Records regulations: The Federal rules restrict any use of the information to criminally investigate or prosecute any alcohol or drug abuse patient.[facility] HospitalIn the event this information is protected by the Federal Confidentiality of Alcohol and Drug Abuse Patient Records regulations: The Federal rules restrict any use of the information to criminally investigate or prosecute any alcohol or drug abuse patient.[facility] HospitalIn the event this information is protected by the Federal Confidentiality of Alcohol and Drug Abuse Patient Records regulations: The Federal rules restrict any use of the information to criminally investigate or prosecute any alcohol or drug abuse patient.[facility] HospitalIn the event this information is protected by the Federal Confidentiality of Alcohol and Drug Abuse Patient Records regulations: The Federal rules restrict any use of the information to criminally investigate or prosecute any alcohol or drug abuse patient.[facility] HospitalIn the event this information is protected by the Federal Confidentiality of Alcohol and Drug Abuse Patient Records regulations: The Federal rules restrict any use of the information to criminally investigate or prosecute any alcohol or drug abuse patient.[facility] HospitalIn the event this information is protected by the Federal Confidentiality of Alcohol and Drug Abuse Patient Records regulations: The Federal rules restrict any use of the information to criminally investigate or prosecute any alcohol or drug abuse patient.[facility] HospitalIn the event this information is protected by the Federal Confidentiality of Alcohol and Drug Abuse Patient Records regulations: The Federal rules restrict any use of the information to criminally investigate or prosecute any alcohol or drug abuse patient.[facility] HospitalIn the event this information is protected by the Federal Confidentiality of Alcohol and Drug Abuse Patient Records regulations: The Federal rules restrict any use of the information to criminally investigate or prosecute any alcohol or drug abuse patient.[facility] HospitalIn the event this information is protected by the Federal Confidentiality of Alcohol and Drug Abuse Patient Records regulations: The Federal rules restrict any use of the information to criminally investigate or prosecute any alcohol or drug abuse patient.[facility] HospitalIn the event this information is protected by the Federal Confidentiality of Alcohol and Drug Abuse Patient Records regulations: The Federal rules restrict any use of the information to criminally investigate or prosecute any alcohol or drug abuse patient.[facility] HospitalIn the event this information is protected by the Federal Confidentiality of Alcohol and Drug Abuse Patient Records regulations: The Federal rules restrict any use of the information to criminally investigate or prosecute any alcohol or drug abuse patient.[facility] HospitalIn the event this information is protected by the Federal Confidentiality of Alcohol and Drug Abuse Patient Records regulations: The Federal rules restrict any use of the information to criminally investigate or prosecute any alcohol or drug abuse patient.[facility] HospitalIn the event this information is protected by the Federal Confidentiality of Alcohol and Drug Abuse Patient Records regulations: The Federal rules restrict any use of the information to criminally investigate or prosecute any alcohol or drug abuse patient.[facility] HospitalIn the event this information is protected by the Federal Confidentiality of Alcohol and Drug Abuse Patient Records regulations: The Federal rules restrict any use of the information to criminally investigate or prosecute any alcohol or drug abuse patient.[facility] HospitalIn the event this information is protected by the Federal Confidentiality of Alcohol and Drug Abuse Patient Records regulations: The Federal rules restrict any use of the information to criminally investigate or prosecute any alcohol or drug abuse patient.[facility] HospitalIn the event this information is protected by the Federal Confidentiality of Alcohol and Drug Abuse Patient Records regulations: The Federal rules restrict any use of the information to criminally investigate or prosecute any alcohol or drug abuse patient.[facility] HospitalIn the event this information is protected by the Federal Confidentiality of Alcohol and Drug Abuse Patient Records regulations: The Federal rules restrict any use of the information to criminally investigate or prosecute any alcohol or drug abuse patient.[facility] HospitalIn the event this information is protected by the Federal Confidentiality of Alcohol and Drug Abuse Patient Records regulations: The Federal rules restrict any use of the information to criminally investigate or prosecute any alcohol or drug abuse patient.[facility] HospitalIn the event this information is protected by the Federal Confidentiality of Alcohol and Drug Abuse Patient Records regulations: The Federal rules restrict any use of the information to criminally investigate or prosecute any alcohol or drug abuse patient.[facility] HospitalIn the event this information is protected by the Federal Confidentiality of Alcohol and Drug Abuse Patient Records regulations: The Federal rules restrict any use of the information to criminally investigate or prosecute any alcohol or drug abuse patient.[facility] HospitalIn the event this information is protected by the Federal Confidentiality of Alcohol and Drug Abuse Patient Records regulations: The Federal rules restrict any use of the information to criminally investigate or prosecute any alcohol or drug abuse patient.[facility] HospitalIn the event this information is protected by the Federal Confidentiality of Alcohol and Drug Abuse Patient Records regulations: The Federal rules restrict any use of the information to criminally investigate or prosecute any alcohol or drug abuse patient.[facility] HospitalIn the event this information is protected by the Federal Confidentiality of Alcohol and Drug Abuse Patient Records regulations: The Federal rules restrict any use of the information to criminally investigate or prosecute any alcohol or drug abuse patient.[facility] HospitalIn the event this information is protected by the Federal Confidentiality of Alcohol and Drug Abuse Patient Records regulations: The Federal rules restrict any use of the information to criminally investigate or prosecute any alcohol or drug abuse patient.[facility] HospitalIn the event this information is protected by the Federal Confidentiality of Alcohol and Drug Abuse Patient Records regulations: The Federal rules restrict any use of the information to criminally investigate or prosecute any alcohol or drug abuse patient.[facility] HospitalIn the event this information is protected by the Federal Confidentiality of Alcohol and Drug Abuse Patient Records regulations: The Federal rules restrict any use of the information to criminally investigate or prosecute any alcohol or drug abuse patient.[facility] HospitalIn the event this information is protected by the Federal Confidentiality of Alcohol and Drug Abuse Patient Records regulations: The Federal rules restrict any use of the information to criminally investigate or prosecute any alcohol or drug abuse patient.[facility] HospitalIn the event this information is protected by the Federal Confidentiality of Alcohol and Drug Abuse Patient Records regulations: The Federal rules restrict any use of the information to criminally investigate or prosecute any alcohol or drug abuse patient.[facility] HospitalIn the event this information is protected by the Federal Confidentiality of Alcohol and Drug Abuse Patient Records regulations: The Federal rules restrict any use of the information to criminally investigate or prosecute any alcohol or drug abuse patient.[facility] HospitalIn the event this information is protected by the Federal Confidentiality of Alcohol and Drug Abuse Patient Records regulations: The Federal rules restrict any use of the information to criminally investigate or prosecute any alcohol or drug abuse patient.[facility] HospitalIn the event this information is protected by the Federal Confidentiality of Alcohol and Drug Abuse Patient Records regulations: The Federal rules restrict any use of the information to criminally investigate or prosecute any alcohol or drug abuse patient.[facility] HospitalIn the event this information is protected by the Federal Confidentiality of Alcohol and Drug Abuse Patient Records regulations: The Federal rules restrict any use of the information to criminally investigate or prosecute any alcohol or drug abuse patient.[facility] HospitalIn the event this information is protected by the Federal Confidentiality of Alcohol and Drug Abuse Patient Records regulations: The Federal rules restrict any use of the information to criminally investigate or prosecute any alcohol or drug abuse patient.[facility] HospitalIn the event this information is protected by the Federal Confidentiality of Alcohol and Drug Abuse Patient Records regulations: The Federal rules restrict any use of the information to criminally investigate or prosecute any alcohol or drug abuse patient.[facility] Teams (unrecognized sec tion and content) Take Away Man Relationship Specialty Start Date End Date Michel Alcazar PCP - General Family Practice 04/22/17 [facility] [address] Cardiology 09/04/16 Lakesha Sanchez MD Primary Staff Physician Cardiology 08/05/18 Take Away Man Relationship Specialty Start Date End Date Michel Alcazar PCP - General Family Practice 04/22/[address] [address] Cardiology 09/04/16 Lakesha Sanchez MD Primary Staff Physician Cardiology 08/05/18 Take Away Man Relationship Specialty Start Date End Date Michel Alcazar PCP - General Family Practice 04/22/[address] [address] Cardiology 09/04/16 Lakesha Sanchez MD Primary Staff Physician Cardiology 08/05/18 Take Away Man Relationship Specialty Start Date End Date Michel Alcazar PCP - General Family Practice 04/22/17 Simon Souza [address] [phone] Cardiology 09/04/16 Lakesha Sanchez MD Primary Staff Physician Cardiology 08/05/18 Take Away Man Relationship Specialty Start Date End Date Michel Alcazar PCP - General Family Practice 04/22/17 HarleySimon mckeon [address] [phone] Cardiology 09/04/16 Lakesha Sanchez MD Primary Staff Physician Cardiology 08/05/18 Take Away Man Relationship Specialty Start Date End Date Michel Alcazar PCP - General Family Practice 04/22/17 Simon Souza [address] [phone] Cardiology 09/04/16 Lakesha Sanchez MD Primary Staff Physician Cardiology 08/05/18 Take Away Man Relationship Specialty Start Date End Date Michel Alcazar PCP - General Family Practice 04/22/17 Simon Souza B [address] [address] Cardiology 09/04/16 Lakesha Sanchez MD Primary Staff Physician Cardiology 08/05/18 Take Away Man Relationship Specialty Start Date End Date Michel Alcazar PCP - General Family Practice 04/22/[address] [address] Cardiology 09/04/16 Lakesha Sanchez MD Primary Staff Physician Cardiology 08/05/18 Take Away Man Relationship Specialty Start Date End Date Michel Alcazar PCP - General Family Practice 04/22/[address] [phone] Cardiology 09/04/16 Lakesha Sanchez MD Primary Staff Physician Cardiology 08/05/18 Take Away Man Relationship Specialty Start Date End Date Michel Alcazar PCP - General Family Practice 04/22/[address] [phone] Cardiology 09/04/16 Lakesha Sanchez MD Primary Staff Physician Cardiology 08/05/18 Take Away Man Relationship Specialty Start Date End Date Michel Alcazar PCP - General Family Practice 04/22/17 [facility] [address] [address] Cardiology 09/04/16 Lakesha Sanchez MD Primary Staff Physician Cardiology 08/05/18 Take Away Man Relationship Specialty Start Date End Date Michel Alcazar PCP - General Family Medicine 04/22/[address] [phone] Cardiology 09/04/16 Lakesha Sanchez MD Primary Staff Physician Cardiology 08/05/18 Take Away Man Relationship Specialty Start Date End Date Michel Alcazar PCP - General Family Medicine 04/22/17 [facility] [address] [phone] Cardiology 09/04/16 Lakesha Sanchez MD Primary Staff Physician Cardiology 08/05/18 Take Away Man Relationship Specialty Start Date End Date Michel Alcazar PCP - General Family Medicine 04/22/17 [facility] [address] [address] Cardiology 09/04/16 Lakesha Sanchez MD Primary Staff Physician Cardiology 08/05/18 Take Away Man Relationship Specialty Start Date End Date Michel Alcazar [address] [place] [phone] PCP - General Family Medicine 04/22/17 [facility] [address] [address] Cardiology 09/04/16 Lakesha Sanchez [place] [id number] [place] [phone] Primary Staff Physician Cardiology 08/05/18 Take Away Man Relationship Specialty Start Date End Date Michle Alcazar Ramesh [address] [address] PCP - General Family Medicine 04/22/17 [place] [id number] [place] [address] Cardiology 09/04/16 [place] [address] [address] Primary Staff Physician Cardiology 08/05/18 Take Away Man Relationship Specialty Start Date End Date NilaMichel shepherd [address] [address] PCP - General Family Medicine 04/22/[address] [address] Cardiology 09/04/16 Lakesha Sanchez MD [address] [place] [address], [place] [address] Primary Staff Physician Cardiology 08/05/18 Take Away Man Relationship Specialty Start Date End Date Michel Alcazar [address] [place] [phone] PCP - General Family Medicine 04/22/17 [facility] [address] [place] [address] Cardiology 09/04/16 Lakesha Sanchez MD [address] [place] [phone] Primary Staff Physician Cardiology 08/05/18 Take Away Man Relationship Specialty Start Date End Date Michel Alcazar [address] [place] [phone] PCP - General Family Medicine 04/22/17 [facility] [address] [place] [address] Cardiology 09/04/16 Lakesha Sanchez MD [address] [place] [phone] Primary Staff Physician Cardiology 08/05/18 Take Away Man Relationship Specialty Start Date End Date Michel Alcazar [address] [place] [phone] PCP - General Family Medicine 04/22/[address] [address] Cardiology 09/04/16 Lakesha Sanchez [place] [id number] [place] [phone] Primary Staff Physician Cardiology 08/05/18 Take Away Man Relationship Specialty Start Date End Date Michel Alcazar [address] [place] [phone] PCP - General Family Medicine 04/22/17 Simon Souza [address] [place] [phone] Cardiology 09/04/16 Lakesha Sanchez MD [address] [place] [phone] Primary Staff Physician Cardiology 08/05/18 Take Away Man Relationship Specialty Start Date End Date Michel Alcazar [address] [place] [phone] PCP - General Family Medicine 04/22/17 Simon Souza [address] [place] [phone] Cardiology 09/04/16 Lakesha Sanchez MD [address] [place] [phone] Primary Staff Physician Cardiology 08/05/18 Take Away Man Relationship Specialty Start Date End Date Michel Alcazar [address] [place] [phone] PCP - General Family Medicine 04/22/17 Simon Souza [address] [place] [phone] Cardiology 09/04/16 Lakesha Sanchez MD [address] [place] [phone] Primary Staff Physician Cardiology 08/05/18 Take Away Man Relationship Specialty Start Date End Date Michel Alcazar [address] [place] [phone] PCP - General Family Medicine 04/22/17 Simon Souza [address] [place] [phone] Cardiology 09/04/16 Lakesha Sanchez MD [address] [place] [phone] Primary Staff Physician Cardiology 08/05/18 Take Away Man Relationship Specialty Start Date End Date Michel Alcazar [address] [place] [phone] PCP - General Family Medicine 04/22/17 Simon Souza [address] [place] [phone] Cardiology 09/04/16 Lakesha Sanchez MD [address] [place] [phone] Primary Staff Physician Cardiology 08/05/18 Take Away Man Relationship Specialty Start Date End Date Michel Alcazar [address] [place] [phone] PCP - General Family Medicine 04/22/17 Simon Souza [address] [place] [phone] Cardiology 09/04/16 Lakesha Sanchez MD [address] [place] [phone] Primary Staff Physician Cardiology 08/05/18 Take Away Man Relationship Specialty Start Date End Date Michel Alcazar [address] [place] [phone] PCP - General Family Medicine 04/22/17 Simon Souza [address] [place] [phone] Cardiology 09/04/16 Lakesha Sanchez MD [address] [place] [phone] Primary Staff Physician Cardiology 08/05/18 Take Away Man Relationship Specialty Start Date End Date Michel Alcazar [address] [place] [phone] PCP - General Family Medicine 04/22/17 Simon Souza [address] [place] [phone] Cardiology 09/04/16 Lakesha Sanchez MD [address] [place] [phone] Primary Staff Physician Cardiology 08/05/18 Take Away Man Relationship Specialty Start Date End Date Michel Alcazar [address] [place] [phone] PCP - General Family Medicine 04/22/17 Simon Souza [address] [place] [phone] Cardiology 09/04/16 Lakesha Sanchez MD [address] [place] [phone] Primary Staff Physician Cardiology 08/05/18 Reason for [...] atorvastatin Reason Comments lab orders faxed to [facility] Reason Comments Results Reason Comments Follow Up [...] BE BASED ON THE PRIMARY CLINICAL RECORDS. [facility]. provides no warranty or guarantee of the accuracy or completeness of information in this document.
--- NOTE | 2023-11-15 21:04 | ED.GIBLEED1 ---
HPI - GI Bleed General Chief complaint: GI Bleed Stated complaint: Rectal Bleeding Time Seen by Provider: 11/15/23 20:51 Source: patient Mode of arrival: Wheelchair Limitations: no limitations History of Present Illness HPI Narrative: patient presents complaining of rectal bleed. history of hemorrhoids. states he passed a small amount of blood earlier today at home. He then went to see a concert but before the concert started he was trying to have a BM and started bleeding again. no abdominal pain. States he was not able to get the bleeding to stop. He placed paper towel over his anal area and now presents to the ER. No dizziness or light headiness. No chest pain or dyspnea or nausea Related Data Home Medications ?Medication ?Instructions ?Recorded ?Confirmed apixaban 2.5 mg tablet (Eliquis) 2.5 mg PO Q12H 07/09/23 11/15/23 atorvastatin 40 mg tablet 40 mg PO Q24H 07/09/23 11/15/23 furosemide 20 mg tablet 20 mg PO Q12H 07/09/23 11/15/23 gabapentin 300 mg capsule 300 mg PO Q12H 07/09/23 11/15/23 glimepiride 4 mg tablet 4 mg PO Q24H 07/09/23 11/15/23 isosorbide mononitrate 30 mg 30 mg PO Q24H 07/09/23 11/15/23 tablet,extended release 24 hr lisinopril 5 mg tablet 2.5 mg PO Q24H 07/09/23 11/15/23 metoprolol succinate 50 mg 50 mg PO Q24H 07/09/23 11/15/23 tablet,extended release 24 hr nitroglycerin 0.4 mg sublingual 0.4 mg sublingual PRN 07/09/23 11/15/23 tablet spironolactone 25 mg tablet 12.5 mg PO Q24H 07/09/23 11/15/23 tamsulosin 0.4 mg capsule 0.4 mg PO Q24H 07/09/23 11/15/23 clopidogrel 75 mg tablet mg 11/15/23 Previous Rx's ?Medication ?Instructions ?Recorded hydrocortisone-pramoxine 1 %-1 % 1 applic [place] TID #30 grams 10/26/23 rectal cream Allergies Allergy/AdvReac Type Severity Reaction Status Date / Time Sulfa (Sulfonamide Allergy Verified 11/15/23 19:51 Antibiotics) Review of Systems ROS Status of ROS 10 or more systems reviewed and unremarkable except as noted in history and below [facility] Social History Smoking status: Never smoker Exam Constitutional Vital Signs, click to edit/add: Last Vital Signs Temp 98.4 F 11/15/23 19:45 Pulse 69 11/15/23 19:45 Resp 16 11/15/23 19:45 BP 126/66 11/15/23 21:45 Pulse Ox 99 11/15/23 19:45 Common normals: no apparent distress, average body habitus, oriented x3, no limitations, healthy appearing, alert and well nourished HENMO Common normals: normocephalic and head/scalp atraumatic Respiratory Common normals: normal respiratory effort, no retractions, no use of accessory muscles and clear to auscultation bilaterally Cardio Common normals: regular rate, regular rhythm, S1 normal heart sound and S2 normal heart sound GI Common normals: Normal to inspection, nondistended, normoactive bowel sounds present, soft to palpation and non-tender Other: rectal. external hemorrhoids noted. one has evidence of recent bleed but no active bleed. Digital exam able to palpate internal hemorrhoids. No blood on the finger above the external hemorrhoid blood. Extremity Common normals: normal to inspection and full ROM Neuro Common normals: oriented x3, CN's II-XII intact bilaterally and moves all extremities Psych Appearance: grossly normal Course Vital Signs Vital signs: Vital Signs Temperature 98.4 F 11/15/23 19:45 Pulse Rate 69 11/15/23 19:45 Respiratory Rate 16 11/15/23 19:45 Blood Pressure 112/71 11/15/23 19:45 Pulse Oximetry 99 11/15/23 19:45 Temperature 98.4 F 11/15/23 19:45 Pulse Rate 69 11/15/23 19:45 Respiratory Rate 16 11/15/23 19:45 Blood Pressure 126/66 11/15/23 21:45 Pulse Oximetry 99 11/15/23 19:45 MDM - GI Bleed MDM Narrative Medical decision making narrative: patient is on plavix and eliquis. History of hemorrhoids. Presents with rectal bleeding. Exam with finding of external hemorrhoids and one with small site that appeared to have been bleeding earlier but not now. Digital exam with palpable internal hemorrhoids but not blood noted in the canal. CBC WNL and BMP at baseline. orthostatic vital signs normal. Patient without recurrent bleeding while in the department and discharged home Lab Data Labs: Lab Results 11/15/23 Range/Units 21:14 WBC 8.5 (4.0-11.0) 10^3/uL RBC 3.79 L (4.70-6.10) 10^6/uL Hgb 12.1 L (14.0-18.0) g/dL Hct 37.0 L (42.0-54.0) % MCV 97.6 H (80.0-94.0) fL MCH 31.9 (25.9-34.0) pg MCHC 32.7 (29.9-35.2) g/dL RDW 13.6 (11.0-15.0) % Plt Count 197 (150-450) 10^3/uL MPV 9.2 L (9.5-13.5) fL Neut % (Auto) 74.6 (43.0-75.0) % Lymph % (Auto) 14.8 L (20.5-60.0) % [place] % (Auto) 7.8 (1.7-12.0) % Eos % (Auto) 1.8 (0.9-7.0) % Baso % (Auto) 0.6 (0.2-2.0) % Neut # (Auto) 6.4 (1.4-6.5) 10^3/uL Lymph # (Auto) 1.3 (1.2-3.8) 10^3/uL [place] # (Auto) 0.7 (0.3-0.8) 10^3/uL Eos # (Auto) 0.2 (0.0-0.7) 10^3/uL Baso # (Auto) 0.1 (0.0-0.1) 10^3/uL Abs Immat Gran (auto) 0.03 (0.00-0.03) 10^3/uL Imm/Tot Granulo (auto) 0.4 (0.0-0.5) % Sodium 143 (136-145) mmol/L Potassium 4.3 (3.5-5.1) mmol/L Chloride 106 (98-107) mmol/L Carbon Dioxide 28.4 (21.0-32.0) mmol/L Anion Gap 12.9 BUN 29.0 H (7.0-18.0) mg/dL Creatinine 1.87 H (0.70-1.30) mg/dL Est GFR ( Amer) 42 L (>=60) Est GFR (Non-Af Amer) 35 L (>=60) BUN/Creatinine Ratio 15.5 Glucose 111 H (74-106) mg/dL Calcium 8.8 (8.5-10.1) mg/dL Discharge Plan Discharge Stand Alone Forms: Portal Instructions Chief Complaint: GI Bleed Clinical Impression: Hemorrhoids Patient Disposition: Home, Self-Care Prescriptions / Home Meds: No Action clopidogrel 75 mg tablet Eliquis 2.5 mg tablet 2.5 mg PO Q12H furosemide 20 mg tablet 20 mg PO Q12H gabapentin 300 mg capsule 300 mg PO Q12H glimepiride 4 mg tablet 4 mg PO Q24H lisinopril 5 mg tablet 2.5 mg PO Q24H atorvastatin 40 mg tablet 40 mg PO Q24H tamsulosin 0.4 mg capsule 0.4 mg PO Q24H isosorbide mononitrate 30 mg tablet extended release 24 hr 30 mg PO Q24H nitroglycerin 0.4 mg tablet, sublingual 0.4 mg sublingual PRN Rx Instructions: do not exceed 3 doses per episode spironolactone 25 mg tablet 12.5 mg PO Q24H metoprolol succinate 50 mg tablet extended release 24 hr 50 mg PO Q24H hydrocortisone-pramoxine 1-1 % cream 1 applic [place] TID Qty: 30 0RF Print Language: Upper Sorbian Instructions: Hemorrhoids (ED), [place] (DC) Additional Instructions: follow up with Dr Lang next week Referrals: Michel Lang MD [Primary Care Provider] - 1 week
[2023-11-15 21:22] LABS: Basophils Absolute Auto 0.1 10^3/uL (0.0-0.1); Basophils Percent Auto 0.6 % (0.2-2.0); Eosinophils Absolute Auto 0.2 10^3/uL (0.0-0.7); Eosinophils Percent Auto 1.8 % (0.9-7.0); Hemoglobin 12.1 g/dL (14.0-18.0); Immature Granulocytes Abs Auto 0.03 10^3/uL (0.00-0.03); Immature Granulocytes Pct Auto 0.4 % (0.0-0.5); Lymphocytes Absolute Auto 1.3 10^3/uL (1.2-3.8); Lymphocytes Percent Auto 14.8 % (20.5-60.0); Mean Corpuscular HGB Conc 32.7 g/dL (29.9-35.2); Mean Corpuscular Hemoglobin 31.9 pg (25.9-34.0); Mean Corpuscular Volume 97.6 fL (80.0-94.0); Mean Platelet Volume 9.2 fL (9.5-13.5); Monocytes Absolute Auto 0.7 10^3/uL (0.3-0.8); Monocytes Percent Auto 7.8 % (1.7-12.0); Neutrophils Absolute Auto 6.4 10^3/uL (1.4-6.5); Neutrophils Percent Auto 74.6 % (43.0-75.0); Platelet Count 197 10^3/uL (150-450); Red Blood Count 3.79 10^6/uL (4.70-6.10); Red Cell Distribution Width 13.6 % (11.0-15.0); White Blood Count 8.5 10^3/uL (4.0-11.0)
[2023-11-15 21:32] LABS: Anion Gap 12.9; BUN Creatinine Ratio 15.5; Calcium 8.8 mg/dL (8.5-10.1); Carbon Dioxide 28.4 mmol/L (21.0-32.0); Chloride 106 mmol/L (98-107); Estimated GFR (African America 42 (>=60); Estimated GFR (Non-African Ame 35 (>=60); Glucose 111 mg/dL (74-106); Potassium 4.3 mmol/L (3.5-5.1); Sodium 143 mmol/L (136-145)
[2023-11-15 21:45] VITALS: BP 107/63; BP 119/2; BP 126/66
== END 2023-11-15 22:30 | disposition home or self-care (01) ==
PROVIDERS: Emergency Provider Internal Medicine; PCP Family Medicine
DX: K64.4 Residual hemorrhoidal skin tags (principal); K64.8 Other hemorrhoids; Z79.02 Long term (current) use of antithrombotics/antiplatelets; Z79.01 Long term (current) use of anticoagulants
CPT/HCPCS: 36415; 80048; 85025; 99283

== ENCOUNTER 2024-02-24 11:00 | Observation (INO) | payer MEDICARE, OTHER, SELFPAY ==
[2024-02-24] VITALS (8 sets, daily range): BP systolic 111–141; BP diastolic 66–89; PULSE 71–80; TEMP 36.5–36.7; O2SAT 94–97; BMI 29.0; BMI 31.2
--- NOTE | 2024-02-24 | CONS_ITS ---
CONSULTATION DATE: ??02/24/2024 ? REASON FOR CONSULTATION:? Possible hemorrhoid bleeding. ? HISTORY OF PRESENT ILLNESS:? Patent is an 83-year-old male on Plavix, Eliquis and baby aspirin due to atrial fibrillation and coronary artery disease.? He has had problems with intermittent rectal bleeding which worsened yesterday.? After a bowel movement, noted bright red blood with wiping and in the toilet bowl.? He had another episode this morning, which he was concerned about.? He reported had several episodes in October, requiring emergency room evaluations.? Both times he was discharged to home.? His hemoglobin today was at its baseline of 13.5.? He does, by history, report a colonoscopy a little over a year ago, a year and a half ago that revealed a rectal polyp.? He believes this was done in [place] and that report is currently not available.? He reports, in the past, his rectal bleeding has resolved spontaneously.? He denies any abdominal pain.? He has had no nausea or vomiting.? No weight loss.? He denies any previous abdominal operations.? ? FAMILY HISTORY:? Unknown since patient is adopted.? ? ALLERGIES:? Patient has allergies to sulfa. ? CURRENT MEDICATIONS:? Include Eliquis, atorvastatin, furosemide, gabapentin, glimepiride, isosorbide mononitrate, lisinopril, metoprolol, nitroglycerin, spironolactone, tamsulosin, Plavix and docusate.? ? PAST MEDICAL HISTORY:? Significant for the coronary artery disease and paroxysmal atrial fibrillation, chronic kidney disease stage 3A, type 2 diabetes, hypertension, hyperlipidemia.? ? PAST SURGICAL HISTORY:? Significant for remote coronary artery bypass grafting x4 as well as colonoscopy with rectal polypectomy. ? SOCIAL HISTORY:? He is .? Denies alcohol use, tobacco use or illicit drug use. ? REVIEW OF SYSTEMS:? Ten system review of systems is negative for recent weight loss or weight gain.? Denies increased fatigue or light-headedness.? Has had no earache or tinnitus.? No sinus congestion.? No sore throat or hoarseness.? No chest pain, palpitations or syncope.? No chronic cough, shortness of breath or hemoptysis.? No abdominal pain, nausea or vomiting.? No diarrhea, constipation, decreased caliber of the stool. ?He has had the rectal bleeding, which is painless.? ?No melena.? No dysuria, frequency, urgency or hematuria.? No headaches, seizures or tremors.? No easy bruising or bleeding.? No heat or cold intolerance.? No polydipsia, polyphagia or polyuria. ? PHYSICAL EXAM:? VITAL SIGNS:? Patient is afebrile.? Blood pressure is 111/75.? Pulse is 71 and regular.? Respiratory rate is 16.? O2 saturation is 94% on room air.? GENERAL:? In general, he is a well developed, well nourished male, currently in no acute distress. HEENT:? Normocephalic, atraumatic.? Sclerae anicteric.? Conjunctiva not injected.? Oral mucosa is moist without lesions. NECK:? Supple.? There is no adenopathy, thyromegaly or JVD. LUNGS:? Clear bilaterally.? CARDIAC EXAM:? Regular rhythm and rate without appreciable murmurs, rubs or gallops. ABDOMEN:? Soft, non-tender, non-distended.? There are no masses, hepatosplenomegaly or hernias.? SKIN:? Reveals some upper extremity bruising, mild lower extremity edema bilaterally.? RECTAL EXAM:? Reveals some old blood at the anus.? No palpable masses.? No significant external hemorrhoids.? This is possibly an irritated internal hemorrhoid on palpation, but no active bleeding currently.? No fissures. ? ASSESSMENT:? An 83-year-old male with recurrent, intermittent rectal bleeding on multiple anti-coagulants and anti-platelet agents.? He is quite concerned about this.? Source is not readily identifiable on exam.? ? RECOMMENDATIONS:? I would recommend sigmoidoscopy for further evaluation.? If it turns out to be an internal hemorrhoid, this may be amenable to banding or excision or suturing to prevent ongoing bleeding problems.? Certainly, the other possibilities include just irritated rectal vein versus polyp or diverticular disease, which seems less likely.? We will make him NPO after midnight and start some mild hydration and plan on the procedure tomorrow, late morning.?? [facility]
--- NOTE | 2024-02-24 11:22 | ED.GENADUL1 ---
HPI HPI - General Adult General Chief complaint: GI Bleed Stated complaint: BLOOD IN STOOL Time Seen by Provider: 02/24/24 11:04 Source: patient Mode of arrival: ambulance Limitations: no limitations History of Present Illness HPI narrative: Patient presented to the emergency department for evaluation of rectal bleeding. Patient states that approximately [address] To last had a colonoscopy, removed a couple polyps. He states he had internal and external hemorrhoids. Patient states he was at [place] emergency department in October for an episode of rectal bleeding the last approximately 24 hours. Patient states he was discharged everything was fine. Patient states that he had a bowel movement yesterday, he noted there was some blood when he wiped and Blood in the toilet bowl. Patient states that he had another episode this morning again when he wiped, blood in the toilet bowl and around the stool. States there is no pain in the rectum when he is having bleeding. He is not having any abdominal pain. Does not have any nausea, vomiting, diarrhea, constipation. No other complaints at this time Related Data Home Medications ?Medication ?Instructions ?Recorded ?Confirmed apixaban 2.5 mg tablet (Eliquis) 2.5 mg PO Q12H 07/09/23 02/24/24 atorvastatin 40 mg tablet 40 mg PO .QHS 07/09/23 02/24/24 furosemide 20 mg tablet 20 mg PO DAILY 07/09/23 02/24/24 gabapentin 300 mg capsule 300 mg PO Q12H 07/09/23 11/15/23 glimepiride 4 mg tablet 4 mg PO DAILY 07/09/23 02/24/24 isosorbide mononitrate 30 mg 30 mg PO DAILY 07/09/23 02/24/24 tablet,extended release 24 hr lisinopril 5 mg tablet 5 mg PO DAILY 07/09/23 02/24/24 metoprolol succinate 50 mg 50 mg PO DAILY 07/09/23 02/24/24 tablet,extended release 24 hr nitroglycerin 0.4 mg sublingual 0.4 mg sublingual Q5M PRN chest 07/09/23 02/24/24 tablet pain spironolactone 25 mg tablet 12.5 mg PO DAILY 07/09/23 02/24/24 tamsulosin 0.4 mg capsule 0.4 mg PO DAILY 07/09/23 02/24/24 clopidogrel 75 mg tablet 75 mg PO DAILY 11/15/23 02/24/24 docusate sodium 100 mg capsule 100 mg PO DAILY PRN constipation 02/24/24 02/24/24 ([facility]) Allergies Allergy/AdvReac Type Severity Reaction Status Date / Time Sulfa (Sulfonamide Allergy Unknown Unknown Verified 02/24/24 11:05 Antibiotics) Opioid [facility] Opioid Management Most Recent Opioid Data: No Data to Display Review of Systems ROS Narrative Negative unless otherwise stated in the HPI PFSH [facility] Social History Smoking status: Never smoker Little interest or pleasure in doing things: not at all Feeling down, depressed, or hopeless: not at all Exam Narrative Exam Narrative: General: NAD, AAOx3, no distress Respiratory: respiratory effort normal, speaks in full sentences, no tripod position, no accessory muscle use. Lungs clear to auscultation without rhonchi, wheezes, rales Cardiac: Regular rate and rhythm, no edema, regular s1/s2, no m/g/r Abdomen: Soft, ND/NT. No evidence of fluid wave. No pulsatile masses on exam, rebound tenderness, Ag sign or pain over Mcburney's point. Rectal: Circumferentially there are external hemorrhoids noted, nonthrombosed, digital rectal exam with internal hemorrhoids as well, no active extravasation or active bleeding, but there is blood clot noted at the sphincter Constitutional Vital Signs, click to edit/add: Last Vital Signs Temp 97.7 F 02/24/24 11:02 Pulse 80 02/24/24 13:25 Resp 16 02/24/24 13:25 BP 136/85 02/24/24 13:25 Pulse Ox 97 02/24/24 13:25 O2 Del Method Room Air 02/24/24 13:25 Course Vital Signs Vital signs: Vital Signs Temperature 97.7 F 02/24/24 11:02 Pulse Rate 71 02/24/24 11:02 Respiratory Rate 16 02/24/24 11:02 Blood Pressure 141/89 02/24/24 11:02 Pulse Oximetry 97 02/24/24 11:02 Oxygen Delivery Method Room Air 02/24/24 11:02 Temperature 97.7 F 02/24/24 11:02 Pulse Rate 80 02/24/24 13:25 Respiratory Rate 16 02/24/24 13:25 Blood Pressure 136/85 02/24/24 13:25 Pulse Oximetry 97 02/24/24 13:25 Oxygen Delivery Method Room Air 02/24/24 13:25 Medical Decision Making MDM Narrative Medical decision making narrative: MDM Patient with history as above presented with rectal bleeding. History obtained from patient, . Patient was nontoxic, stable. Ambulatory. Exam as above. Labs reviewed. Independently reviewed imaging. Reviewed external records. Differential diagnosis considered. Overall presentation is consistent with hemorrhoids, rectal bleeding. 1127 Patient presenting to the ED for evaluation of painful rectal bleeding, pain at the rectum when he was having a bowel movement, improving. Patient is on Plavix and Eliquis. States Dr. Langleys has done his colonoscopy in the past. I believe the patient's bleeding is likely secondary to his hemorrhoids, labs are ordered, will discuss with his surgeon as well [address] Schwartz, he states patient would have to follow-up outpatient. Patient is uncomfortable with this [address] Radford, will be on consult and scope [address] Mcfarland, he is excepting admission at this time. Transfer of done. Report was given. Medical Records Medical records reviewed: Yes I reviewed the patient's medical records Lab Data Lab results reviewed: Yes I reviewed the patient's lab results Labs: Lab Results 02/24/24 Range/Units 11:29 WBC 6.8 (4.0-11.0) 10^3/uL RBC 4.15 L (4.70-6.10) 10^6/uL Hgb 13.2 L (14.0-18.0) g/dL Hct 40.0 L (42.0-54.0) % MCV 96.4 H (80.0-94.0) fL MCH 31.8 (25.9-34.0) pg MCHC 33.0 (29.9-35.2) g/dL RDW 13.7 (11.0-15.0) % Plt Count 185 (150-450) 10^3/uL MPV 9.1 L (9.5-13.5) fL Neut % (Auto) 76.5 H (43.0-75.0) % Lymph % (Auto) 14.2 L (20.5-60.0) % [place] % (Auto) 5.6 (1.7-12.0) % Eos % (Auto) 2.7 (0.9-7.0) % Baso % (Auto) 0.7 (0.2-2.0) % Neut # (Auto) 5.2 (1.4-6.5) 10^3/uL Lymph # (Auto) 1.0 L (1.2-3.8) 10^3/uL [place] # (Auto) 0.4 (0.3-0.8) 10^3/uL Eos # (Auto) 0.2 (0.0-0.7) 10^3/uL Baso # (Auto) 0.1 (0.0-0.1) 10^3/uL Abs Immat Gran (auto) 0.02 (0.00-0.03) 10^3/uL Imm/Tot Granulo (auto) 0.3 (0.0-0.5) % PT 10.8 (9.0-11.6) sec INR 1.02 APTT 28.0 (22.3-36.2) sec Sodium 138 (136-145) mmol/L Potassium 3.9 (3.5-5.1) mmol/L Chloride 103 (98-107) mmol/L Carbon Dioxide 26.6 (21.0-32.0) mmol/L Anion Gap 12.3 BUN 23.0 H (7.0-18.0) mg/dL Creatinine 1.66 H (0.70-1.30) mg/dL Est GFR ( Amer) 48 L (>=60 mL/min/1.73m^2) Est GFR (Non-Af Amer) 40 L (>=60 mL/min/1.73m^2) BUN/Creatinine Ratio 13.9 Glucose 173 H (74-106) mg/dL Calcium 9.3 (8.5-10.1) mg/dL Blood Type A Positive Antibody Screen Negative Discharge Plan Discharge Chief Complaint: GI Bleed Clinical Impression: Bright red rectal bleeding Patient Disposition: Admitted as Observation Time of Disposition Decision: 13:34 Condition: Good
--- NOTE | 2024-02-24 11:25 | PC.NURSE ---
states bright red in toilet bowel after BM
[2024-02-24 11:39] LABS: Basophils Absolute Auto 0.1 10^3/uL (0.0-0.1); Basophils Percent Auto 0.7 % (0.2-2.0); Eosinophils Absolute Auto 0.2 10^3/uL (0.0-0.7); Eosinophils Percent Auto 2.7 % (0.9-7.0); Hemoglobin 13.2 g/dL (14.0-18.0); Immature Granulocytes Abs Auto 0.02 10^3/uL (0.00-0.03); Immature Granulocytes Pct Auto 0.3 % (0.0-0.5); Lymphocytes Percent Auto 14.2 % (20.5-60.0); Mean Corpuscular Hemoglobin 31.8 pg (25.9-34.0); Mean Corpuscular Volume 96.4 fL (80.0-94.0); Mean Platelet Volume 9.1 fL (9.5-13.5); Monocytes Absolute Auto 0.4 10^3/uL (0.3-0.8); Monocytes Percent Auto 5.6 % (1.7-12.0); Neutrophils Absolute Auto 5.2 10^3/uL (1.4-6.5); Neutrophils Percent Auto 76.5 % (43.0-75.0); Platelet Count 185 10^3/uL (150-450); Red Blood Count 4.15 10^6/uL (4.70-6.10); Red Cell Distribution Width 13.7 % (11.0-15.0); White Blood Count 6.8 10^3/uL (4.0-11.0)
[2024-02-24 11:54] LABS: INR 1.02; Prothrombin Time 10.8 sec (9.0-11.6)
[2024-02-24 12:00] LABS: Anion Gap 12.3; BUN Creatinine Ratio 13.9; Calcium 9.3 mg/dL (8.5-10.1); Carbon Dioxide 26.6 mmol/L (21.0-32.0); Chloride 103 mmol/L (98-107); Estimated GFR (African America 48 (>=60 mL/min/1.73m^2); Estimated GFR (Non-African Ame 40 (>=60 mL/min/1.73m^2); Glucose 173 mg/dL (74-106); Potassium 3.9 mmol/L (3.5-5.1); Sodium 138 mmol/L (136-145)
--- NOTE | 2024-02-24 15:14 | PM.HP ---
HPI H&P: HPI History of Present Illness Chief complaint: RECTAL BLEED Narrative: 83 y o male with hx of rectal bleeding form internal hemorrhoids presented to ED with bright red blood per rectum. Patient reports that he had a BM yesterday when he noticed some bright red blood on the toilet paper. He had another episode in the morning where he noticed blood on the toilet paper and in the toilet with stool. He had Colonoscopy 08/09 - that showed internal hemorrhoids. He is currently on Plavix and Eliquis for CAD and Parox Afib. He has prior hx of rectal bleeding from internal hemorrhoids that typically self resolves. He denies CP, SOB, dizziness or any symptoms from bleeding. His Hb is stable and more or less at its goal. Patient admitted for observation to ensure his Hb remains stable and his rectal bleeding does not get worse. Opioid HPI Opioid Management Most Recent Pain and Opioid Data: Last ORT Total Score 0 02/24/24 14:45 Last ORT Risk Category Low Risk 02/24/24 14:45 Review of Systems ROS Status of ROS 10 or more systems reviewed and unremarkable except as noted in history and below PFSH PFS Medical History (Updated 02/24/24 @ 15:23 by Shaikh Bruna MD) Afib ?I48.91 - Unspecified atrial fibrillation (ICD-10) CKD stage 3a, GFR 45-59 ml/min ?N18.31 - Chronic kidney disease, stage 3a (ICD-10) Type 2 diabetes mellitus ?E11.9 - Type 2 diabetes mellitus without complications (ICD-10) HTN (hypertension) ?I10 - Essential (primary) hypertension (ICD-10) HFrEF (heart failure with reduced ejection fraction) ?I50.20 - Unspecified systolic (congestive) heart failure (ICD-10) HLD (hyperlipidemia) ?E78.5 - Hyperlipidemia, unspecified (ICD-10) CAD (coronary artery disease) ?I25.10 - Atherosclerotic heart disease of [place] coronary artery without angina pectoris (ICD-10) Surgical History (Updated 02/24/24 @ 15:21 by Shaikh Bruna MD) H/O four vessel coronary artery bypass graft ?Z95.1 - Presence of aortocoronary bypass graft (ICD-10) H/O rectal polypectomy ?Z98.890 - Other specified postprocedural states (ICD-10) ?Z87.19 - Personal history of other diseases of the digestive system (ICD-10) Social History (Updated 02/24/24 @ 14:26 by Rossy Oh LPN) Within the past year, how often did you have a drink containing alcohol: never Within the past year, how often did you have six or more drinks on one occasion: never Score interpretation: A score less than 4 is consistent with normal alcohol consumption. Smoking status: Never smoker Second hand tobacco smoke exposure: No Non-prescribed substance use: denies use Previous occupational history: retired Known occupational exposures/hazards: No Highest level of school completed/degree received: high school graduate Do you want help with school or training: No Are you now , , , , never or living with a partner: In a typical week, how many times do you talk on the telephone with family, friends, or neighbors: 3 or more times per week How often do you get together with friends or relatives: 3 or more times per week How often do you attend tenriism or voodoo services: 4 or more times per year Do you belong to any clubs or organizations such as tenriism groups unions, [employer] or athletic groups, or school groups: no Total score: 3 Score interpretation: A score of greater than or equal to 2 indicates the lowest level of social isolation. Little interest or pleasure in doing things: not at all Feeling down, depressed, or hopeless: not at all Feel stressed/tense/nervous/anxious/difficulty sleeping: not at all Due to disability, difficulty making decisions: No Do you think of yourself as: straight/heterosexual Gender Identity: male Meds Home Medications and Allergies Home Medications ?Medication ?Instructions ?Recorded ?Confirmed ?Type apixaban 2.5 mg tablet (Eliquis) 2.5 mg PO Q12H 07/09/23 02/24/24 History atorvastatin 40 mg tablet 40 mg PO .QHS 07/09/23 02/24/24 History furosemide 20 mg tablet 20 mg PO DAILY 07/09/23 02/24/24 History gabapentin 300 mg capsule 300 mg PO Q12H 07/09/23 11/15/23 History glimepiride 4 mg tablet 4 mg PO DAILY 07/09/23 02/24/24 History isosorbide mononitrate 30 mg 30 mg PO DAILY 07/09/23 02/24/24 History tablet,extended release 24 hr lisinopril 5 mg tablet 5 mg PO DAILY 07/09/23 02/24/24 History metoprolol succinate 50 mg 50 mg PO DAILY 07/09/23 02/24/24 History tablet,extended release 24 hr nitroglycerin 0.4 mg sublingual 0.4 mg sublingual Q5M PRN chest 07/09/23 02/24/24 History tablet pain spironolactone 25 mg tablet 12.5 mg PO DAILY 07/09/23 02/24/24 History tamsulosin 0.4 mg capsule 0.4 mg PO DAILY 07/09/23 02/24/24 History clopidogrel 75 mg tablet 75 mg PO DAILY 11/15/23 02/24/24 History docusate sodium 100 mg capsule 100 mg PO DAILY PRN constipation 02/24/24 02/24/24 History (Col-Rite) Allergies Allergy/AdvReac Type Severity Reaction Status Date / Time Sulfa (Sulfonamide Allergy Unknown Unknown Verified 02/24/24 11:05 Antibiotics) Exam Narrative Exam Narrative: Multiple skin moles. Constitutional Vital Signs, click to edit/add: Last Vital Signs Temp 98.0 F 02/24/24 14:26 Pulse 73 02/24/24 14:26 Resp 16 02/24/24 14:26 BP 129/82 02/24/24 14:26 Pulse Ox 94 L 02/24/24 14:26 O2 Del Method Room Air 02/24/24 14:41 Documenting provider has reviewed patient's vital signs: yes Common normals: no apparent distress and oriented x3 General appearance: cooperative [facility] Common normals: normocephalic and head/scalp atraumatic Head and scalp: normocephalic and atraumatic Eye Common normals: conjunctivae normal and no scleral icterus Conjunctiva: conjunctiva(e) normal Respiratory Common normals: normal respiratory effort and clear to auscultation bilaterally Effort & inspection: able to speak in complete sentences Auscultation: clear to auscultation bilaterally Cardio Common normals: regular rate, S1 normal heart sound and S2 normal heart sound Rate: regular rate Heart sounds: S1 normal and S2 normal GI Common normals: Normal to inspection, nondistended, normoactive bowel sounds present, soft to palpation, non-tender and no hepatosplenomegaly Palpation: soft and no hepatosplenomegaly Extremity Common normals: no clubbing, cyanosis or edema Neuro Common normals: oriented x3, moves all extremities and no focal motor deficits Psych Common normals: mental status grossly normal, denies hallucinations, denies homicidal ideation and denies suicidal ideation Results Labs Labs: Short CBC 02/24/24 Range/Units 11:29 WBC 6.8 (4.0-11.0) 10^3/uL Hgb 13.2 L (14.0-18.0) g/dL Hct 40.0 L (42.0-54.0) % Plt Count 185 (150-450) 10^3/uL BMP 02/24/24 11:29 Sodium 138 Potassium 3.9 Chloride 103 Carbon Dioxide 26.6 BUN 23.0 H Creatinine 1.66 H Glucose 173 H Calcium 9.3 Assessment and Plan Assessment and Plan (1) Bright red rectal bleeding: Assessment and Plan: Rectal bleeding likely from internal/external hemorrhoids. Hold Plabix and Eliquis. Monitor H&H. (2) Hemorrhoids: Assessment and Plan: Trial of hydrocortisone suppository. Hold plavix and Eliquis as patient presented with rectal bleeding. Qualifiers: Hemorrhoid type: unspecified Qualified Code(s): K64.9 - Unspecified hemorrhoids (3) CAD (coronary artery disease): Assessment and Plan: No evidence of active cardiac ischemia. Prior hx of CABG over 20 years ago. Hold plavix and eliquis. Qualifiers: Coronary Disease-Associated Artery/Lesion type: [place] artery [place] vs. transplanted heart: [place] heart Associated angina: without angina Qualified Code(s): I25.10 - Atherosclerotic heart disease of [place] coronary artery without angina pectoris (4) CKD stage 3a, GFR 45-59 ml/min: Assessment and Plan: Renal hx at baseline. Monitor. (5) Type 2 diabetes mellitus: Assessment and Plan: SSI while inpatient. Hold glimepiride. 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 C/w home medications. Qualifiers: Hypertension type: primary hypertension Qualified Code(s): I10 - Essential (primary) hypertension (7) HFrEF (heart failure with reduced ejection fraction): Assessment and Plan: Euvolemic. C/w home medications. Last known EF is 30% 05/09 (8) Afib: Assessment and Plan: On Eliquis for stroke px. He has hx of recurrent rectal bleeding. He is a good candidate for Watchman to reduce the risk of bleeding so that he can safely use Eliquis. Defer to Cardiology/PCP. Qualifiers: Atrial fibrillation type: paroxysmal Qualified Code(s): I48.0 - Paroxysmal atrial fibrillation (9) HLD (hyperlipidemia): Assessment and Plan: c/w statin Qualifiers: Hyperlipidemia type: unspecified Qualified Code(s): E78.5 - Hyperlipidemia, unspecified
[2024-02-24 16:17] LABS: Glucometer 105 mg/dL (74-106)
[2024-02-24 17:15] LABS: Hematocrit 41.7 % (42.0-54.0); Hemoglobin 13.6 g/dL (14.0-18.0)
--- NOTE | 2024-02-24 17:17 | PM.GSCN ---
History of Present Illness Consult details Consult date: 02/24/24 Reason for consult: other Requesting physician: Shaikh Bruna Narrative: patient seen/examined/chart reviewed/consult dictated; 83 yo male on Eliquis, Plavix and baby asa with intermittent rectal bleeding; ongoing since October; worse last 24 hours; primarily BRBPR with bms/wiping; no pain;normal hb; reportedly with colonoscopy 07/2022 with rectal polypectomy; plan flexible sigmoidoscopy, possible banding of internal hemorrhoid, verses hemorrhoidectomy; informed consent obtained. [facility] Medical History (Updated 02/24/24 @ 15:23 by Shaikh Bruna MD) Afib ?I48.91 - Unspecified atrial fibrillation (ICD-10) CKD stage 3a, GFR 45-59 ml/min ?N18.31 - Chronic kidney disease, stage 3a (ICD-10) Type 2 diabetes mellitus ?E11.9 - Type 2 diabetes mellitus without complications (ICD-10) HTN (hypertension) ?I10 - Essential (primary) hypertension (ICD-10) HFrEF (heart failure with reduced ejection fraction) ?I50.20 - Unspecified systolic (congestive) heart failure (ICD-10) HLD (hyperlipidemia) ?E78.5 - Hyperlipidemia, unspecified (ICD-10) CAD (coronary artery disease) ?I25.10 - Atherosclerotic heart disease of [place] coronary artery without angina pectoris (ICD-10) Surgical History (Updated 02/24/24 @ 15:21 by Shaikh Bruna MD) H/O four vessel coronary artery bypass graft ?Z95.1 - Presence of aortocoronary bypass graft (ICD-10) H/O rectal polypectomy ?Z98.890 - Other specified postprocedural states (ICD-10) ?Z87.19 - Personal history of other diseases of the digestive system (ICD-10) Social History (Updated 02/24/24 @ 14:26 by Rossy Oh LPN) Within the past year, how often did you have a drink containing alcohol: never Within the past year, how often did you have six or more drinks on one occasion: never Score interpretation: A score less than 4 is consistent with normal alcohol consumption. Smoking status: Never smoker Second hand tobacco smoke exposure: No Non-prescribed substance use: denies use Previous occupational history: retired Known occupational exposures/hazards: No Highest level of school completed/degree received: high school graduate Do you want help with school or training: No Are you now , , , , never or living with a partner: In a typical week, how many times do you talk on the telephone with family, friends, or neighbors: 3 or more times per week How often do you get together with friends or relatives: 3 or more times per week How often do you attend catholic or yarsanism services: 4 or more times per year Do you belong to any clubs or organizations such as catholic groups unions, [employer] or athletic groups, or school groups: no Total score: 3 Score interpretation: A score of greater than or equal to 2 indicates the lowest level of social isolation. Little interest or pleasure in doing things: not at all Feeling down, depressed, or hopeless: not at all Feel stressed/tense/nervous/anxious/difficulty sleeping: not at all Due to disability, difficulty making decisions: No Do you think of yourself as: straight/heterosexual Gender Identity: male Meds Home Medications and Allergies Home Medications ?Medication ?Instructions ?Recorded ?Confirmed ?Type apixaban 2.5 mg tablet (Eliquis) 2.5 mg PO DAILY 07/09/23 02/24/24 History atorvastatin 40 mg tablet 40 mg PO .QHS 07/09/23 02/24/24 History furosemide 20 mg tablet 20 mg PO DAILY 07/09/23 02/24/24 History gabapentin 300 mg capsule 300 mg PO Q12H 07/09/23 02/24/24 History glimepiride 4 mg tablet 4 mg PO DAILY 07/09/23 02/24/24 History isosorbide mononitrate 30 mg 30 mg PO DAILY 07/09/23 02/24/24 History tablet,extended release 24 hr lisinopril 5 mg tablet 5 mg PO DAILY 07/09/23 02/24/24 History metoprolol succinate 50 mg 50 mg PO DAILY 07/09/23 02/24/24 History tablet,extended release 24 hr nitroglycerin 0.4 mg sublingual 0.4 mg sublingual Q5M PRN chest 07/09/23 02/24/24 History tablet pain spironolactone 25 mg tablet 12.5 mg PO DAILY 07/09/23 02/24/24 History tamsulosin 0.4 mg capsule 0.4 mg PO .qhs 07/09/23 02/24/24 History clopidogrel 75 mg tablet 75 mg PO DAILY 11/15/23 02/24/24 History docusate sodium 100 mg capsule 100 mg PO DAILY PRN constipation 02/24/24 02/24/24 History (Col-Rite) Allergies Allergy/AdvReac Type Severity Reaction Status Date / Time Sulfa (Sulfonamide Allergy Unknown Unknown Verified 02/24/24 11:05 Antibiotics) Exam Constitutional Vital Signs, click to edit/add: Last Vital Signs Temp 98.0 F 02/24/24 14:26 Pulse 71 02/24/24 16:12 Resp 16 02/24/24 16:12 BP 111/75 02/24/24 16:12 Pulse Ox 94 L 02/24/24 16:12 O2 Del Method Room Air 02/24/24 16:12 Results Labs Labs: Abnormal lab results 02/24/24 Range/Units 11:29 RBC 4.15 L (4.70-6.10) 10^6/uL Hgb 13.2 L (14.0-18.0) g/dL Hct 40.0 L (42.0-54.0) % MCV 96.4 H (80.0-94.0) fL MPV 9.1 L (9.5-13.5) fL Neut % (Auto) 76.5 H (43.0-75.0) % Lymph % (Auto) 14.2 L (20.5-60.0) % Lymph # (Auto) 1.0 L (1.2-3.8) 10^3/uL BUN 23.0 H (7.0-18.0) mg/dL Creatinine 1.66 H (0.70-1.30) mg/dL Est GFR ( Amer) 48 L (>=60 mL/min/1.73m^2) Est GFR (Non-Af Amer) 40 L (>=60 mL/min/1.73m^2) Glucose 173 H (74-106) mg/dL Diabetes panel 02/24/24 Range/Units 11:29 Sodium 138 (136-145) mmol/L Potassium 3.9 (3.5-5.1) mmol/L Chloride 103 (98-107) mmol/L Carbon Dioxide 26.6 (21.0-32.0) mmol/L BUN 23.0 H (7.0-18.0) mg/dL Creatinine 1.66 H (0.70-1.30) mg/dL Glucose 173 H (74-106) mg/dL Calcium 9.3 (8.5-10.1) mg/dL Calcium panel 02/24/24 Range/Units 11:29 Calcium 9.3 (8.5-10.1) mg/dL Pituitary panel 02/24/24 Range/Units 11:29 Sodium 138 (136-145) mmol/L Potassium 3.9 (3.5-5.1) mmol/L Chloride 103 (98-107) mmol/L Carbon Dioxide 26.6 (21.0-32.0) mmol/L BUN 23.0 H (7.0-18.0) mg/dL Creatinine 1.66 H (0.70-1.30) mg/dL Glucose 173 H (74-106) mg/dL Calcium 9.3 (8.5-10.1) mg/dL Adrenal panel 02/24/24 Range/Units 11:29 Sodium 138 (136-145) mmol/L Potassium 3.9 (3.5-5.1) mmol/L Chloride 103 (98-107) mmol/L Carbon Dioxide 26.6 (21.0-32.0) mmol/L BUN 23.0 H (7.0-18.0) mg/dL Creatinine 1.66 H (0.70-1.30) mg/dL Glucose 173 H (74-106) mg/dL Calcium 9.3 (8.5-10.1) mg/dL All other labs normal. Assessment and Plan Assessment and Plan (1) Bright red rectal bleeding: (2) Hemorrhoids: Qualifiers: Hemorrhoid type: unspecified Qualified Code(s): K64.9 - Unspecified hemorrhoids (3) CAD (coronary artery disease): Qualifiers: Coronary Disease-Associated Artery/Lesion type: [place] artery [place] vs. transplanted heart: [place] heart Associated angina: without angina Qualified Code(s): I25.10 - Atherosclerotic heart disease of [place] coronary artery without angina pectoris (4) CKD stage 3a, GFR 45-59 ml/min: (5) Type 2 diabetes mellitus: Qualifiers: Diabetes mellitus senior living insulin use: without senior living use Diabetes mellitus complication status: with kidney complications Diabetes mellitus complication detail: with chronic kidney disease Chronic kidney disease stage: stage 3 (moderate) Chronic kidney disease stage 3 subtype: stage 3a (GFR 45-59) Qualified Code(s): E11.22 - Type 2 diabetes mellitus with diabetic chronic kidney disease; N18.31 - Chronic kidney disease, stage 3a (6) HTN (hypertension): Qualifiers: Hypertension type: primary hypertension Qualified Code(s): I10 - Essential (primary) hypertension (7) HFrEF (heart failure with reduced ejection fraction): (8) Afib: Qualifiers: Atrial fibrillation type: paroxysmal Qualified Code(s): I48.0 - Paroxysmal atrial fibrillation (9) HLD (hyperlipidemia): Qualifiers: Hyperlipidemia type: unspecified Qualified Code(s): E78.5 - Hyperlipidemia, unspecified
[2024-02-24] MEDS: HYDROCORTISONE ACETATE 25 MG RECTAL SUPPOSITORY PR (17:31)
--- NOTE | 2024-02-24 19:13 | PC.NURSE ---
Patient on toilet attempting to have a BM. Active bleeding from rectum moderate amount. Patient has no complaints of dizziness.
[2024-02-24] MEDS: ATORVASTATIN CALCIUM 40 MG TABLET PO (21:05)
[2024-02-24] MEDS: TAMSULOSIN HCL 0.4 MG CAPSULE PO (21:05)
[2024-02-24 21:09] LABS: Glucometer 154 mg/dL (74-106)
[2024-02-25] VITALS (7 sets, daily range): BP systolic 100–145; BP diastolic 57–79; PULSE 72–73; TEMP 36.2–36.8; O2SAT 94–98
--- NOTE | 2024-02-25 | OP_ITS ---
OPERATION DATE: 02/25/2024 PREOPERATIVE DIAGNOSIS: Rectal bleeding. POSTOPERATIVE DIAGNOSIS: Anal canal abrasions with no active bleeding, prominent rectal veins. PROCEDURE: Flexible sigmoidoscopy. ANESTHESIA: Monitored anesthesia care. INDICATIONS AND CONSENT: Patient is an 83-year-old male with multiple medical problems, on Eliquis, Plavix and baby aspirin. He has had intermittent problems with rectal bleeding with bowel movements, primarily with wiping and in the toilet bowl. He has had a colonoscopy a year and a half ago. The report is not available. He reportedly had a rectal polyp. Indications, risks, benefits, alternatives of proceeding with flexible sigmoidoscopy, possible banding of internal hemorrhoid, possible hemorrhoidectomy were explained extensively to the patient, including the risks of bleeding, infection, scarring, pain, recurrence, need for further surgery or anesthetic complications. All of his questions were answered. Informed consent was obtained. PROCEDURE: Patient brought to the operating room, placed in the supine position. Monitored anesthesia care was provided. He was then placed in the modified lithotomy position. He had some dried blood on the outside of the anus. No active bleeding. Rectal exam was performed which showed no masses or blood. The scope was then inserted into the anal canal. Within the upper rectum, there was a noted to be formed brown/yellow stool. No evidence of melena. No evidence of bleeding from further up in the colon. There was no blood within the rectum. There were prominent rectal veins noted without stigmata of recent bleeding. The scope was retroflexed. At the distal anal canal, there were noted to be some superficial abrasions. No active bleeding. There were redundant mucosal folds that were somewhat prolapsing with some mucosal irritation, but no active bleeding. No fissures. The scope was then withdrawn. Patient tolerated procedure well, was sent to recovery room in good condition. CC: Dr. Bruna PATE
[2024-02-25] MEDS: LACTATED RINGER'S SOLUTION 1,000 ML 50 ML IV (00:09)
[2024-02-25 05:49] LABS: Basophils Percent Auto 0.5 % (0.2-2.0); Eosinophils Absolute Auto 0.2 10^3/uL (0.0-0.7); Eosinophils Percent Auto 3.1 % (0.9-7.0); Hematocrit 35.4 % (42.0-54.0); Hemoglobin 11.8 g/dL (14.0-18.0); Immature Granulocytes Abs Auto 0.02 10^3/uL (0.00-0.03); Immature Granulocytes Pct Auto 0.3 % (0.0-0.5); Lymphocytes Absolute Auto 1.8 10^3/uL (1.2-3.8); Lymphocytes Percent Auto 23.4 % (20.5-60.0); Mean Corpuscular HGB Conc 33.3 g/dL (29.9-35.2); Mean Corpuscular Hemoglobin 31.6 pg (25.9-34.0); Mean Corpuscular Volume 94.9 fL (80.0-94.0); Mean Platelet Volume 9.1 fL (9.5-13.5); Monocytes Absolute Auto 0.6 10^3/uL (0.3-0.8); Monocytes Percent Auto 7.8 % (1.7-12.0); Neutrophils Percent Auto 64.9 % (43.0-75.0); Platelet Count 173 10^3/uL (150-450); Red Blood Count 3.73 10^6/uL (4.70-6.10); Red Cell Distribution Width 13.6 % (11.0-15.0); White Blood Count 7.7 10^3/uL (4.0-11.0)
[2024-02-25 08:06] LABS: Glucometer 104 mg/dL (74-106)
[2024-02-25] MEDS: METOPROLOL SUCCINATE 50 MG TAB.ER.24H PO (08:16)
--- NOTE | 2024-02-25 09:00 | CM.NOTE ---
Rounds made with Dr. Mcfarland, pt being taken over for scope this AM. Discharge planning dependent on procedure findings.
--- NOTE | 2024-02-25 10:18 | PM.GSPRC ---
Date of procedure: 02/25/24 Pre-op diagnosis: rectal bleeding Procedure: flexible sigmoidoscopy Implants: anal abrasion, no active bleeding; prominent rectal veins; no significant hemorrhoids. Anesthesia: MAC Surgeon: Sanjay Radford Procedure Summary: dictated Estimated blood loss (mL): 0 Specimens: none Complications: No Pathology: none sent Condition: stable Disposition: PACU
[2024-02-25] MEDS: ISOSORBIDE MONONITRATE 30 MG TAB.ER.24H PO (10:41)
[2024-02-25] MEDS: SPIRONOLACTONE 25 MG TABLET 12.5 MG PO (10:42)
[2024-02-25] MEDS: LISINOPRIL 5 MG TABLET PO (10:42)
[2024-02-25] MEDS: FUROSEMIDE 20 MG TABLET PO (10:42)
[2024-02-25 11:08] LABS: Glucometer 106 mg/dL (74-106)
[2024-02-25] MEDS: PSYLLIUM SUGAR FREE 5.8 GM POWDER PACKET PO (11:16)
--- NOTE | 2024-02-25 11:23 | CM.NOTE ---
Medicare Outpatient Observation Notice discussed with pt, pt verbalizes understanding and signs paper. Original given to pt and copy placed on pt's chart.
--- NOTE | 2024-02-25 11:24 | SWNOTE1 ---
SW spoke to case management and pt has no discharge needs at this time.
[2024-02-25 12:19] LABS: Hematocrit 35.8 % (42.0-54.0); Hemoglobin 12.1 g/dL (14.0-18.0)
--- NOTE | 2024-02-25 12:52 | PM.DS1 ---
DS: Providers Provider Date of admission: 02/24/24 14:35 Primary care physician: Michel Lang MD Admitting clinician: Shaikh Bruna Attending physician on admission: Shaikh Bruna Attending physician on discharge: Shaikh Bruna Discharging clinician: Shaikh Bruna Anticipated date of discharge: 02/25/24 DS: Diagnosis Discharge Diagnosis (1) Bright red rectal bleeding: (2) Hemorrhoids: Qualifiers: Hemorrhoid type: unspecified Qualified Code(s): K64.9 - Unspecified hemorrhoids (3) CAD (coronary artery disease): Qualifiers: Coronary Disease-Associated Artery/Lesion type: [place] artery [place] vs. transplanted heart: [place] heart Associated angina: without angina Qualified Code(s): I25.10 - Atherosclerotic heart disease of [place] coronary artery without angina pectoris (4) CKD stage 3a, GFR 45-59 ml/min: (5) Type 2 diabetes mellitus: Qualifiers: Diabetes mellitus senior care insulin use: without ocean transportation intermediary use Diabetes mellitus complication status: with kidney complications Diabetes mellitus complication detail: with chronic kidney disease Chronic kidney disease stage: stage 3 (moderate) Chronic kidney disease stage 3 subtype: stage 3a (GFR 45-59) Qualified Code(s): E11.22 - Type 2 diabetes mellitus with diabetic chronic kidney disease; N18.31 - Chronic kidney disease, stage 3a (6) HTN (hypertension): Qualifiers: Hypertension type: primary hypertension Qualified Code(s): I10 - Essential (primary) hypertension (7) HFrEF (heart failure with reduced ejection fraction): (8) Afib: Qualifiers: Atrial fibrillation type: paroxysmal Qualified Code(s): I48.0 - Paroxysmal atrial fibrillation (9) HLD (hyperlipidemia): Qualifiers: Hyperlipidemia type: unspecified Qualified Code(s): E78.5 - Hyperlipidemia, unspecified DS: Summary Hospital Course Hospital Course: 83 y o male presented to ED with bright red blood per rectum. He reported seeing bright red blood on 2 different occasions with BM. He had Colonoscopy 08/09 - that showed internal hemorrhoids. He uses Plavix and Eliquis for CAD and Parox Afib. He also reported prior hx of rectal bleeding from internal hemorrhoids that typically self resolves. Patient admitted for observation for rectal bleeding. His Hb remained stable. He had another episode in the hospital where he had bright red blood per rectum. His Plavix and Eliquis were withheld. Patient had sigmoidoscopy today - did not show active bleeding. He had anal abrasions and no sig hemorrhoids. Patient is stable for discharge. He was instructed to hold plavix and eliquis until he sees his project analyst. He has an appt with cardiology tomorrow. Patient is medically stable for discharge. Status at Discharge Functional status at discharge: independent ambulation Time Spent with Patient Time attestation: Total time spent providing and/or coordinating discharge services: Time spent: greater than 30 minutes Exam Narrative Exam Narrative: Multiple skin moles. Constitutional Vital Signs, click to edit/add: Last Vital Signs Temp 97.8 F 02/25/24 10:44 Pulse 73 02/25/24 10:44 Resp 16 02/25/24 10:44 BP 121/66 02/25/24 10:44 Pulse Ox 98 02/25/24 11:31 O2 Del Method Room Air 02/25/24 11:31 Documenting provider has reviewed patient's vital signs: yes Common normals: no apparent distress and oriented x3 General appearance: cooperative Respiratory Common normals: normal respiratory effort and clear to auscultation bilaterally Effort & inspection: able to speak in complete sentences Auscultation: clear to auscultation bilaterally Cardio Common normals: regular rate, S1 normal heart sound and S2 normal heart sound Rate: regular rate Heart sounds: S1 normal and S2 normal GI Common normals: Normal to inspection, nondistended, normoactive bowel sounds present, soft to palpation, non-tender and no hepatosplenomegaly Palpation: soft and no hepatosplenomegaly DS: Data Data Completed and Pending Labs on day of discharge: Labs from last 24 hours 02/25/24 02/25/24 02/25/24 12:08 11:06 08:05 WBC RBC Hgb 12.1 L Hct 35.8 L MCV MCH MCHC RDW Plt Count MPV Neut % (Auto) Lymph % (Auto) [place] % (Auto) Eos % (Auto) Baso % (Auto) Neut # (Auto) Lymph # (Auto) [place] # (Auto) Eos # (Auto) Baso # (Auto) Abs Immat Gran (auto) Imm/Tot Granulo (auto) POC Glucose 106 104 02/25/24 02/24/24 02/24/24 05:30 21:07 17:03 WBC 7.7 RBC 3.73 L Hgb 11.8 L 13.6 L Hct 35.4 L 41.7 L MCV 94.9 H MCH 31.6 MCHC 33.3 RDW 13.6 Plt Count 173 MPV 9.1 L Neut % (Auto) 64.9 Lymph % (Auto) 23.4 [place] % (Auto) 7.8 Eos % (Auto) 3.1 Baso % (Auto) 0.5 Neut # (Auto) 5.0 Lymph # (Auto) 1.8 [place] # (Auto) 0.6 Eos # (Auto) 0.2 Baso # (Auto) 0.0 Abs Immat Gran (auto) 0.02 Imm/Tot Granulo (auto) 0.3 POC Glucose 154 H 02/24/24 16:15 WBC RBC Hgb Hct MCV MCH MCHC RDW Plt Count MPV Neut % (Auto) Lymph % (Auto) [place] % (Auto) Eos % (Auto) Baso % (Auto) Neut # (Auto) Lymph # (Auto) [place] # (Auto) Eos # (Auto) Baso # (Auto) Abs Immat Gran (auto) Imm/Tot Granulo (auto) POC Glucose 105 Discharge Plan Discharge Disposition: Home, Self-Care Condition: Good Discharge Medications: Continued docusate sodium [Col-Rite] 100 mg capsule 100 mg PO DAILY PRN (Reason: constipation) furosemide 20 mg tablet 20 mg PO DAILY Rx Instructions: Take additional for weight gain gabapentin 300 mg capsule 300 mg PO Q12H glimepiride 4 mg tablet 4 mg PO DAILY lisinopril 5 mg tablet 5 mg PO DAILY atorvastatin 40 mg tablet 40 mg PO .QHS tamsulosin 0.4 mg capsule 0.4 mg PO .qhs isosorbide mononitrate 30 mg tablet extended release 24 hr 30 mg PO DAILY nitroglycerin 0.4 mg tablet, sublingual 0.4 mg sublingual Q5M PRN (Reason: chest pain) Rx Instructions: do not exceed 3 doses per episode spironolactone 25 mg tablet 12.5 mg PO DAILY metoprolol succinate 50 mg tablet extended release 24 hr 50 mg PO DAILY Discontinued clopidogrel 75 mg tablet 75 mg PO DAILY Eliquis 2.5 mg tablet 2.5 mg PO DAILY Activity: increase activity as tolerated Diet: advance to your usual diet Print Language: Greek Forms: Portal Instructions Follow Up Appointments: Follow up with Dr. Sanchez's STAFF COUNSEL Saturday02-26-2024 @ 9:15am [phone] Discuss Watchman procedure - due to rectal bleeding and needing to be off blood thinners Follow up with Dr Lang Sat., Feb at 11:00
--- NOTE | 2024-02-26 10:41 | CM.DCFOLLOWU ---
1st attempt 02/26/24, no answer
== END 2024-02-25 13:35 | disposition home or self-care (01) ==
LOC: ER 13:34 → MS 14:38
PROVIDERS: Surgery; Admitting Provider Internal Medicine; Emergency Provider Emergency Medicine; PCP Family Medicine; Visit Provider Internal Medicine
PROC: (CPT 45330; principal; 2024-02-25 09:30)
DX: K62.5 Hemorrhage of anus and rectum (principal); S30.817A Abrasion of anus, initial encounter; I87.8 Other specified disorders of veins; I25.10 Atherosclerotic heart disease of native coronary artery without angina pectoris; E11.22 Type 2 diabetes mellitus with diabetic chronic kidney disease; N18.31 Chronic kidney disease, stage 3a; I13.0 Hypertensive heart and chronic kidney disease with heart failure and stage 1 through stage 4 chronic kidney disease, or unspecified chronic kidney disease; I50.20 Unspecified systolic (congestive) heart failure; I48.0 Paroxysmal atrial fibrillation; E78.5 Hyperlipidemia, unspecified; Z79.01 Long term (current) use of anticoagulants; Z79.02 Long term (current) use of antithrombotics/antiplatelets; Z79.82 Long term (current) use of aspirin
CPT/HCPCS: 45330; 36415; 80048; 82948; 85014; 85018; 85025; 85610; 85730; 86850; 86900; 86901; 94761; 99285; G0378; J2704

== ENCOUNTER 2024-06-17 09:39 | Outpatient (OUT) | payer MEDICARE, OTHER, SELFPAY ==
--- OUTSIDE RECORDS SUMMARY | 2024-06-17 10:07 | XMS_ITS | CCD ---
Author Organization [facility] Care Team Providers Care Wash Plant Operator Name Role Phone Simon Souza Unavailable Michel Alcazar Primary Care Provider [phone] Daniel BROCK, Lakesha Hugo Unavailable MISC, DR [...] GIORDANO ., DR DEVAUGHN Olivo Admitting Unavailable NADERER, DR MICHEL Chandler Primary Care Unavailable JOLLY, [...] ., DR LISA Olivo Admitting Unavaila ble NADERER, DR MICHEL Chandler Consulting Unavailable NADERER, DR MICHEL Chandler Primary Care Unavailable NADERER, DR MICHEL Chandler Attending Unavailable NADERER, DR MICHEL Chandler Admitting Unavailable Harley, Haridas B Unavailable Michel Alcazar Primary Care Provider Daniel BROCK, Lakesha N Unavailable Daniel BROCK, Lakesha N Unavailable Daniel BROCK, Lakesha N Unavailable Michel Alcazar Primary Care Provider [phone] Michel Alcazar MD Primary Care Provider Michel Alcazar MD Primary Care Provider [facility] [place] Unavailable SHAIKH FERNÁNDEZ Referring Unavailable Lisa LOPEZ Attending Unavailable NADERER, MICHEL Attending Unavailable NADERER, MICHEL Attending Unavailable NADERER, MICHEL Chandler Primary Care Unavailable SOURAV, REJI Referring Unavailable COON, DENISSE Attending Unavailable NADERER, MICHEL A Primary Care Unavailable COON, DENISSE Referring Unavailable NADERER, MICHEL Cahndler Primary Care Unavailable SOURAV, REJI Referring Unavailable KEVIN STEEL Attending Unavailable NADERER, MICHEL Chandler Primary Care Unavailable SANTANGELI, LYLE Referring Unavailable NADERER, MICHEL A Primary Care Unavailable ACHDARIN MALLOY Referring Unavailable MARIONEDHARMICAELA MÉNDEZ Attending Unavailable NADERER, MICHEL A Primary Care Unavailable DARIN SANTIAGO Referring Unavailable NADERER, MICHEL Chandler Primary Care Unavailable SANTANGELI, LYLE Referring Unavailable NADERER, MICHEL A Primary Care Unavailable SANTANGELI, LYLE Referring Unavailable NADERER, MICHEL A Primary Care Unavailable SANTANGELI, LYLE Referring Unavailable SANTANGELI, LYLE Attending Unavailable NADERER, MICHEL Chandler Primary Care Unavailable HEVER PALMER Attending Unavailable NADERER, MICHEL Chandler Primary Care Unavailable SELF Referring Unavailable MUSCUTAEVE Calvert Attending Unavailable NADERER, MICHEL A Primary Care Unavailable PAPAY, DULCE A Attending Unavailable NADEREEnrike, MICHEL A Primary Care Unavailable HEVER PALMER Referring Unavailable XENA MANDUJANO Attending Unava ilable OTTONIEL, MICHEL A Primary Care Unavailable XENA MANDUJANO Referring Unava ilable BART MAJANO Attending Unavailable SOURAVREJI Attending Unavailable SOURAV, REJI Admitting Unavailable CHRISTOPHEMAHOGANY, MICHEL A Primary Care Unavailable CHRISTOPHEMAHOGANY, MICHEL A Primary Care Unavailable DANIEL, LAKESHA N Attending Unavailable CHRISTOPHEMAHOGANY, MICHEL A Primary Care Unavailable ROSSY WRIGHT Attending Unavailable BLANCOR, MICHEL A Primary Care Unavailable KHOT, LAKESHA N Referring Unavailable Lorena MACHADO Attending Unavailable Allergies Allergy Classification Reported Allergen(s) Allergy Type Date of Onset Reaction(s) Facility (20 sources) Sulfonamides (Antibiotic); Translations: [SULFA (SULFONAMIDE ANTIBIOTICS)] Drug Intolerance 4 Itching, Other [facility] (20 sources) Iodinated Contrast Media; Translations: [IODINATED CONTRAST MEDIA] Propensity to adverse reactions to drug 7 Other: See Comments, Other [facility] (1 source) Iodine (And Iodine Containting Drugs) Drug allergy (disorder) [facility] (1 source) Sulfonamides (Antibiotic) Drug allergy (disorder) [facility] Medications Current Medications Medication Drug Class(es) Dates Sig (Normalized) Sig (Original) aspirin 81 mg chewable tablet (20 sources) Platelet Aggregation Inhibitor, Nonsteroidal Anti-inflammatory Drug Start: 03-07-2024 take 1 tablet by mouth once daily aspirin 81 mg chewable tablet Take 1 tablet by mouth once daily. 60 tablet 03/07/2024 Active take 1 tablet by mouth once samir y aspirin 81 MG EC tablet Take 81 mg by mouth Daily Active take 1 tablet by mouth twice mercedez ly aspirin, enteric coated (ASPIRIN, ENTERIC COATED) 81 mg EC tablet Take 81 mg by mouth twice daily. 0 Active Comment on above: Take 81 mg by mouth twice daily. atorvastatin 40 mg oral tablet (20 sources) HMG-CoA Reductase Inhibitor Start: 4 take 1 tablet by mouth once daily at bedtime atorvastatin (LIPITOR) 40 mg tablet Take 1 tablet by mouth daily at bedtime. 90 tablet 3 05/17/2024 Active Start: 10-12-2020 End: 05-14-2024 take 1 tablet by mouth once daily at bedtime atorvastatin (LIPITOR) 40 mg tablet Take 1 tablet by mouth daily at bedtime. 90 tablet 3 05/17/2024 Active Comment on above: Take 1 tablet by patel th daily at bedtime. bacitracin 0.4 unt/mg / neomycin 0.0035 mg/mg / polymyxin b 5 unt/mg topical ointment (16 sources) Aminoglycoside Antibacterial, Polymyxin-class Antibacterial Start: 03-06-2024 kcfvmvar-dmbzmrcqei-n olymyxin (NEOSPORIN) 3.5mg-400 unit- 5,000 unit/gram Apply to affected area three times a day. 14 g 03/06/2024 Active Calcium Carbonate (20 sources) CALCIUM CARBONAT E (CORAL CALCIUM ORAL) Take by mouth. Suspended CALCIUM CARBONAT E (CORAL CALCIUM ORAL) Take by mouth. Active CALCIUM CARBONAT E (CORAL CALCIUM ORAL) Take by mouth. 0 Active Comment on above: Take by mouth. cinnamon bark 500 mg oral capsule (20 sources) Cinnamon Bark 50 0 mg cap Take 1,000 tablets by mouth. Active Comment on above: Take 1,000 tablets b y mouth. docusate sodium 100 mg oral capsule (16 sources) Start: take 1 capsule by mouth every twelve hours as needed docusate sodium (COLACE) 100 mg capsule Take 1 capsule by mouth two times a day as needed. 60 capsule 03/06/2024 Active gabapentin 300 mg oral capsule (20 sources) Anti-epileptic Agent Start: End: take 1 capsule by mouth in the morning, then take 2 capsules by mouth at bedtime gabapentin (Neurontin) 300 MG capsule Indications: Type 2 diabetes mellitus with diabetic polyneuropathy (CMS/HCC) TAKE 1 CAPSULE BY MOUTH IN THE MORNING & TAKE 2 CAPSULES AT BEDTIME 270 capsule 03/30/2024 Active Comment on above: Take 300 mg by mouth twice daily. isosorbide dinitrate 30 mg oral tablet (2 sources) Nitrate Vasodilator isosorbide d initrate (Isordil) 30 MG tablet Take 30 mg by mouth in the morning and 30 mg at noon and 30 mg in the evening and 30 mg before bedtime. Active iv contrast (will be provided with radiology test) (1 source) Start: End: inject 1 dose intravenously once, then inject 1 dose intravenously once iv contrast (will be provided with radiology test) Indications: Basal cell carcinoma (BCC) of skin of face, unspecified part of face Inject 1 Each intravenously one time only for [address] Neck W IVCON No IV access, insert saline lock prior to the sedation, infusion, injection for imaging exam. Discontinue saline lock post exam. If Pt. has a central line or IVAD, may access for administration according to line specific nursing protocol. Once exam is complete flush line and de-access according to line specific nursing protocol in the CT contrast administration guidelines link. 1 Each 06/15/2024 06/15/2024 Active lisinopril 5 mg oral tablet (20 sources) Angiotensin Converting Enzyme Inhibitor Start: End: take 1 tablet by mouth once daily lisinopril (ZESTRIL) 5 mg tablet Take 1 tablet by mouth once daily. 90 tablet 4 03/12/2024 Active Comment on above: Take 1 tablet by patel th once daily. 24 hr metoprolol succinate 50 mg extended release oral tablet (20 sources) beta-Adrenergic Priya Start: End: take 1 tablet by mouth once daily metoprolol succinate ER (TOPROL XL) 50 mg 24 hr tablet Take 1 tablet by mouth once daily. 90 tablet 4 04/01/2024 Active Comment on above: Take 1 tablet by patel th once daily. MULTIVITAMIN-LEROY US FUMARATE-FOLIC ACID 18 MG-400 MCG TABLET (20 sources) take 1 tablet by mouth once daily MULTIVITAMIN-FERROUS FUMARATE-FOLIC ACID 18 MG-400 MCG TABLET Take 1 tablet by mouth once daily. Suspended take 1 tablet by mouth once samir y MULTIVITAMIN-FERROUS FUMARATE-FOLIC ACID 18 MG-400 MCG TABLET Take 1 tablet by mouth once daily. Active take 1 tablet by mouth once samir y MULTIVITAMIN-FERROUS FUMARATE-FOLIC ACID 18 MG-400 MCG TABLET Take 1 tablet by mouth once daily. 0 Active Comment on above: Take 1 tablet by patel th once daily. nitroglycerin 0.4 mg sublingual tablet (20 sources) Nitrate Vasodilator Start: 10-12-2020 End: 10-04-2021 nitroglycerin sublingual (NITROQUICK) 0.4 mg SL tablet Dissolve 1 tablet under the tongue every 5 minutes as needed for chest pain. 1 Bottle of 25 2 10/04/2021 Active nitroglycerin (N itrostat) 0.4 MG SL tablet DISSOLVE 1 TABLET UNDER THE TONGUE NEEDED FOR CHEST PAIN- MAY REPEAT EVERY 5 MINUTES IF NEEDED ( MAX 3 DOSES.- IF NO RELIEF CALL 911) Active Comment on above: Dissolve 1 tablet un malik the tongue every 5 minutes as needed for Chest Pain. perflutren lipid microspheres 1.3 mL in NaCl (PF) 0.9% 10 mL injection (DEFINITY) (20 sources) Start: 04-03-2021 End: 07-03-2022 perflutren lipid microspheres 1.3 mL in NaCl [...] oral tablet (20 sources) Aldosterone Antagonist Start: 12-27-2022 take 1 tablet by mouth once daily spironolactone (Aldactone) 25 MG tablet Take 1 tablet every day by oral route for 90 days. 12/27/2022 Active Start: 10-12-2020 End: 03-12-2024 take 0.5 tablet by mouth once daily spironolactone (ALDACTONE) 25 mg tablet Take 0.5 tablets by mouth once daily. 45 tablet 4 03/12/2024 Active Comment on above: Take 0.5 tablets by mouth once daily. tamsulosin hydrochloride 0.4 mg oral capsule (20 sources) alpha-Adrenergic Priya take 0.4 mg by mouth once daily at bedtime tamsulosin ER (FLOMAX) 0.4 mg cp24 Take 0.4 mg by mouth daily at bedtime. Active Comment on above: Take 0.4 mg [...] Take 1,000 mcg by mouth once daily. Active Comment on above: Take 1,[address] [facility] once daily. Completed/Discontinued Medications Medication Drug Class(es) Dates Sig (Normalized) Sig (Original) apixaban 2.5 mg oral tablet (20 sources) Factor Xa Inhibitor Start: 01-01-2022 take 1 tablet by mouth twice daily ELIQUIS 2.5 mg tab(s) take 1 tablet by mouth twice daily 180 tablet 3 03/21/2023 Suspended Comment on above: Take 1 tablet by patel th twice daily. take 1 tablet by patel th twice daily clopidogrel 75 mg oral tablet (20 sources) P2Y12 Platelet Inhibitor Start: 01-03-2022 End: 12-26-2022 take 1 tablet by mouth once daily clopidogrel (PLAVIX) 75 mg tablet Take 1 tablet by mouth once daily. 90 tablet 3 12/27/2022 Suspended Start: 10-12-2020 End: 12-29-2021 take 1 tablet by mouth once daily clopidogrel (PLAVIX) 75 mg tablet Take 1 tablet by mouth once daily. 90 tablet 4 10/04/2021 12/29/2021 Discontinued Comment on above: Take 1 tablet by patel th once daily. Echinacea 400 mg cap (20 sources) End: 05-06-2024 Echinacea 400 mg cap Take by mouth. 05/06/2024 Discontinued (Other) Echinacea 400 mg cap Take by mouth. Suspended Echinacea 400 mg cap Take by mouth. Active Echinacea 400 mg cap Take by mouth. 0 Active Comment on above: Take by mouth. furosemide 20 mg oral tablet (20 sources) Loop Diuretic Start: End: take 1 tablet by mouth once daily as needed, then take 1 tablet by mouth once daily as needed furosemide (LASIX) 20 mg tablet Take 1 tablet by mouth once daily. Take one pill daily. Take an additional pill as needed to keep weight stable. 105 tablet 4 12/27/2022 05/06/2024 Discontinued (Other) Comment on above: Take 1 tablet by patel th once daily. Take one pill daily. Take an additional pill as needed to keep weight stable. glimepiride 4 mg oral tablet (20 sources) Sulfonylurea Start: 1 End: 4 take 1 tablet by mouth once daily glimepiride (AMARYL) 4 mg tablet Take 1 tablet by mouth once daily. At noon 01/31/2021 05/06/2024 Discontinued (Other) take 2 tablets by mouth once mercedez ly glimepiride (Amaryl) 4 MG tablet Take 2 tablets by mouth Daily Active Comment on above: Take 1 tablet by patel th once daily. At noon 24 hr isosorbide mononitrate 30 mg extended release oral tablet (20 sources) Nitrate Vasodilator Start: 1 End: 3 take 1 tablet by mouth once daily in the morning isosorbide mononitrate ER (IMDUR) 30 mg 24 hr tablet Take 1 tablet by mouth once daily. Take 30 mg by mouth once daily, IN THE MORNING. 90 tablet 4 12/27/2022 Suspended Comment on above: Take 1 tablet by patel th once daily. Take 30 mg by mouth once daily, IN THE MORNING. multivitamin/iron/fo lic acid(CENTRUM COMPLETE 18 MG-400 MCG TABLET) (20 sources) take 1 tablet by mouth once daily multivitamin/iron/fo lic acid(CENTRUM COMPLETE 18 MG-400 MCG TABLET) Take 1 tablet by mouth once daily. 0 Active Comment on above: Take 1 tablet by patel th once daily. Problems Active Problems Problem Classification Problem Date Documented Da te Episodic/Chronic Acute and unspecified renal failure (1 source) Acute kidney failure, unspecified; Translations: [ACUTE KIDNEY FAILURE UNSPECIFIED] Onset: 3 Episodic Allergic reactions (1 source) Solar degeneration; Translations: [Other skin changes due to chronic exposure to nonionizing radiation] 05-18-2024 Episodic Cardiac dysrhythmias (6 sources) Chronic atrial fibrillation; Translations: [Chronic atrial fibrillation, unspecified] Onset: 4 Chronic Chronic kidney disease (13 sources) Chronic kidney disease, unspecified; Translations: [Chronic [...] pectoris] Onset: 7 12-05-2016 Chronic Conduction disorders (7 sources) Automatic implantable cardiac defibrillator in situ; Translations: [Presence of automatic (implantable) cardiac defibrillator] Onset: 2 Chronic Congestive heart failure; nonhypertensive (20 sources) Chronic systolic heart failure; Translations: [Chronic systolic (congestive) heart failure] Onset: 7 02-19-2018 Chronic Coronary atherosclerosis and other heart disease (20 sources) Coronary atherosclerosis; Translations: [Atherosclerotic heart disease of [place] coronary artery without angina pectoris] Onset: 7 04-25-2017 Chronic Deficiency and other anemia (1 source) Iron deficiency anemia, unspecified; Translations: [IRON DEFICIENCY ANEMIA UNSPECIFIED] Onset: 3 Episodic Diabetes mellitus with complications (20 sources) Type 2 diabetes mellitus; Translations: [Type 2 diabetes mellitus with diabetic chronic kidney disease] Onset: 7 08-14-2018 Chronic Diabetes mellitus without complication (3 sources) Type 2 diabetes mellitus without complications; Translations: [Type 2 diabetes mellitus without complication] Onset: 3 06-10-2024 Chronic Disorders of lipid metabolism (10 sources) Pure hypercholesterolemia, unspecified; Translations: [Hyperlipidemia, unspecified] Onset: 2 11-15-2023 Chronic Diverticulosis and diverticulitis (1 source) Diverticulosis of large intestine without perforation or abscess with bleeding; Translations: [DVRTCLOS LG INT W/O PERF/ABSC W/BL] Onset: 3 Chronic Essential hypertension (20 sources) Essential hypertension; Translations: [Essential (primary) hypertension] Onset: 9 08-14-2018 Chronic Essential hypertension (1 source) Essential hypertension; Translations: [Benign hypertension with chronic kidney disease, stage III (HCC)] Onset: 7 Fluid and electrolyte disorders (2 sources) Dehydration; Translations: [Hypokalemia] Onset: 3 Episodic Gastrointestinal hemorrhage (4 sources) Gastrointestinal hemorrhage; Translations: [Hemorrhage of anus and rectum] Onset: 3 Episodic Hemorrhoids (4 sources) Other hemorrhoids; Translations: [Hemorrhoids] Onset: 2 04-07-2024 Episodic Hyperplasia of prostate (13 sources) Benign prostatic hyperplasia with lower urinary tract symptoms; Translations: [Benign prostatic hypertrophy without outflow obstruction] Onset: 3 11-15-2023 Chronic Hypertension with complications and secondary hypertension (20 sources) Chronic kidney disease stage 3; Translations: [Hypertensive chronic kidney disease with stage 1 through stage 4 chronic kidney disease, or unspecified chronic kidney disease] Onset: 7 12-05-2016 Chronic Intestinal infection (2 sources) 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; Translations: [ACUTE GASTROENTROPATHY NORWALK AGNT] Onset: 3 Episodic Nausea and vomiting (1 source) Nausea with vomiting, unspecified; Translations: [NAUSEA WITH VOMITING UNSPECIFIED] Onset: 3 Episodic Neoplasms of unspecified nature or uncertain behavior (1 source) Neoplastic disease; Translations: [Neoplasm of unspecified behavior of bone, soft tissue, and skin] 05-18-2024 Episodic Osteoarthritis (16 sources) Localized, primary osteoarthritis of the ankle and/or foot; Translations: [Primary osteoarthritis, left ankle and foot] Onset: 4 11-15-2023 Chronic Other aftercare (1 source) Other care home (current) drug therapy; Translations: [OTH NURSING HOME CURRENT DRUG THERAPY] Onset: 3 Episodic Other aftercare (1 source) intermediate accountant (current) use of antithrombotics/antipl atelets; Translations: [ROAD CROSSING GUARD ANTITHROMBOT/ANTIPLATL ETS] Onset: 3 Episodic Other aftercare (1 source) Post-discharge follow-up; Translations: [Encounter for follow-up examination after completed treatment for conditions other than malignant neoplasm] 03-19-2024 Episodic Other aftercare (1 source) Encounter for follow-up examination after completed treatment for conditions other than malignant neoplasm; Translations: [Hospital discharge follow-up] Onset: 4 Episodic Other and unspecified benign neoplasm (1 source) Benign neoplasm of cecum; Translations: [BENIGN NEOPLASM OF CECUM] Onset: 3 Episodic Other and unspecified benign neoplasm (1 source) Benign neoplasm of transverse colon; Translations: [BENIGN NEOPLASM OF TRANSVERSE COLON] Onset: 3 Episodic Other gastrointestinal disorders (4 sources) Diarrhea, unspecified; Translations: [DIARRHEA UNSPECIFIED] Onset: 3 Episodic Other non-epithelial cancer of skin (5 sources) Basal cell carcinoma of nose; Translations: [Basal cell carcinoma of skin of nose] Onset: 5 05-22-2024 Episodic Other non-traumatic joint disorders (8 sources) Charcot's arthropathy; Translations: [Charcot's joint, right ankle and foot] Onset: 4 11-15-2023 Chronic Other nutritional; endocrine; and metabolic disorders (20 [...] malignant neoplasm of prostate] Onset: 2 Episodic Other skin disorders (1 source) Seborrheic keratosis; Translations: [Other seborrheic keratosis] 05-18-2024 Episodic Residual codes; unclassified (1 source) Chills (without fever); Translations: [CHILLS WITHOUT FEVER] Onset: 3 Episodic Spondylosis; intervertebral disc disorders; other back problems (8 sources) Lumbar spondylosis; Translations: [Spondylosis without myelopathy or radiculopathy, lumbar region] Onset: 4 11-15-2023 Chronic Unclassified (1 source) CHRN KIDNEY DISEASE STG 3 UNSP; Translations: [CHRN KIDNEY DISEASE STG 3 UNSP] Onset: 3 Unclassified (1 source) CONTACT W/AND (SUSP) EXPOS COVID-19; Translations: [CONTACT W/AND (SUSP) EXPOS COVID-19] Onset: 3 Unclassified (1 source) OPENED IN ERROR 05-26-2024 Unclassified (1 source) Consult Onset: 5 Unclassified (1 source) Permanent atrial fibrillation; Translations: [Permanent atrial fibrillation (HCC)] Onset: 5 Past or Other Problems Problem Classification Problem Date Documented Date Episodic/Chronic Abdominal hernia (8 sources) Hernia of anterior abdominal wall; Translations: [Ventral hernia without obstruction or gangrene] Onset: 11-15-2023 11-15-2023 Episodic Acute posthemorrhagic anemia (17 sources) Acute posthemorrhagic anemia; Translations: [Acute posthemorrhagic anemia] Onset: 04-11-2022 Resolved: 03-06-2024 03-06-2024 Episodic Cardiac dysrhythmias (18 sources) Bradycardia; Translations: [Bradycardia, unspecified] Onset: 02-26-2024 Resolved: 03-06-2024 02-26-2024 Episodic Coronary atherosclerosis and other heart disease (2 sources) Presence of aortocoronary bypass graft; Translations: [PRESENCE AORTOCORONARY BYPASS GRAFT] Onset: 04-25-2017 Episodic Deficiency and other anemia (1 source) Anemia, unspecified; Translations: [Anemia, unspecified type] Onset: 02-26-2024 Episodic Genitourinary symptoms and ill-defined conditions (1 source) Personal history of urinary (tract) infections; Translations: [PERS HX URINARY TRACT INFECTIONS] Onset: 04-11-2022 Episodic Other aftercare (1 source) intermediate accountant (current) use of anticoagulants; Translations: [NURSING HOME CURRNT USE ANTICOAGULANTS] Onset: 04-11-2022 Episodic Other circulatory disease (17 sources) Low blood pressure; Translations: [Hypotension, unspecified] Onset: 02-27-2024 Resolved: 03-06-2024 02-26-2024 Episodic Other circulatory disease (1 source) Hypotension, unspecified; Translations: [Hypotension, unspecified hypotension type] Onset: 03-06-2024 Episodic Other nervous system disorders (1 source) Unsteadiness on feet; Translations: [Unsteady gait] Onset: 02-26-2024 Episodic Pulmonary heart disease (1 source) Personal history of pulmonary embolism; Translations: [PERSONAL HISTORY PULMONARY EMBOLISM] Onset: 04-11-2022 Episodic Syncope (2 sources) Syncope and collapse; Translations: [SYNCOPE AND COLLAPSE] Onset: 07-26-2022 Episodic Results Test Name Value Interpretation Reference Range Facility CNOVon 06-15-2024 CNOV [facility] HISTORY PHYSICALon HISTORY PHYSICAL Normal [facility] CNPNon 05-28-2024 CNPN [facility] CNPNon 05-22-2024 CNPN [facility] SURGICAL PATHOLOGYon [facility] CASE REPORT [facility] Comment on above: Surgical Pathology R eport Case: [id number] Authorizing Provider: Hever Palmer MD Collected: 05/18/2024 02:55 PM Ordering Location: Dermatology Received: 05/18/2024 04:44 PM Pathologist: Jim Swann MD Specimen: Skin, Dorsum of Nose [facility] FINAL DIAGNOSIS [facility] Comment on above: A. Skin, dorsum of n ose, shave biopsy: - Basal cell carcinoma, nodular and infiltrative types. SDB/EB 05/21/2024 FINAL PERFORMING LAB [facility] Comment on above: Diagnostic interpret ation performed at [facility], [address] [place] [address] CLIA# [id number] Fulfillment Specialist: Pradip Blackwood M.D. [facility] GROSS DESCRIPTION A. [facility] Comment on above: Received in formalin is a 1.0 x 0.8 x 0.1 cm shave of skin. On the skin surface there is a 0.8 cm torrez to torrez-brown, slightly elevated area. The specimen is bisected. Totally submitted in one cassette. DB May 19, 2024 11:29 AM Gross examination performed at [facility], [address] [place] [address] Specimen Type: TISSU E SPECIMEN Ordering Facility: [facility] Address: [address] [place] [address] Original Ordering Provider: HEVER PALMER [facility] CNOVon 05-18-2024 CNOV [facility] SKIN / NAIL BIOPSYon 024 Type of biopsy: tangential Informed consent: discussed and consent obtained Timeout: patient name, date of , surgical site, and procedure verified Procedure prep: Patient was prepped and draped in usual sterile fashion Prep type: Isopropyl alcohol Anesthesia: the lesion was anesthetized in a standard fashion Anesthetic: 1% lidocaine w/ epinephrine 1-100,000 buffered w/ 8.4% NaHCO3 Instrument used: DermaBlade Hemostasis achieved with: aluminum chloride Outcome: patient tolerated procedure well Post-procedure details: sterile dressing applied and wound care instructions given Dressing type: bandage and petrolatum Additional details: Bcc [facility] SURGICAL PATHOLOGYon 024 CASE REPORT [facility] Comment on above: Order Comment: Speci men Type: TISSUE SPECIMENOrdering Facility: [facility] Address: [address] [place] [address] Result Comment: Surg ical Pathology Report Case: [id number] Provider: Hever Palmer MD Collected: 05/18/2024 02:55 PMOrdering Location: Dermatology Received: 05/18/2024 04:44 PMPathologist: Jim Swann MDSpecimen: Skin, Dorsum of Nose Performed By: #### S ####[facility] [id number] [address] [place] FINAL DIAGNOSIS [facility] Comment on above: Order Comment: Speci men Type: TISSUE SPECIMENOrdering Facility: [facility] Address: [address] [place] [address] Result Comment: A. S kin, dorsum of nose, shave biopsy:- Basal cell carcinoma, nodular and infiltrative types.SDB/EB 05/21/2024 Performed By: #### S ####[facility] LABCLIA [id number] [address] OF [facility] FINAL PERFORMING LAB Normal [facility] Comment on above: Order Comment: Speci men Type: TISSUE SPECIMENOrdering Facility: [facility] Address: [address] [place] [address] Result Comment: Diag nostic interpretation performed at [facility], [address] [place] [address] CLIA# [id number] Director: Pradip Blackwood M.D. Performed By: #### S ####[facility] LABIA [id number] [address] [place] GROSS DESCRIPTION A. Skin Normal [facility] Comment on above: Order Comment: Speci men Type: TISSUE SPECIMENOrdering Facility: [facility] Address: [address] [place] [address] Result Comment: Rece ived in formalin is a 1.0 x 0.8 x 0.1 cm shave of skin. On the skin surface there is a 0.8 cm torrez to torrez-brown, slightly elevated area. The specimen is bisected. Totally submitted in one cassette.DB May 19, 2024 11:29 AMGross examination performed at [facility], [address] [place] [address] Performed By: #### S ####[facility] LABCLIA [id number] [place] [address], [place] [address] [place] CARDIAC IMPLANTABLE DEVICE C HECKOrdered By: Lyle De La Rosa on 05-06-2024 Battery Status OK [facility] Work Phone: [phone] Johan Setting AT Mode Switch Rate 170 [facility] Work Phone: [phone] Johan Setting Lower Rate Limit 70 [facility] Work Phone: [phone] Johan Setting Maximum Sensor Rate 110 [facility] Work Phone: [phone] Johan Setting Maximum Tracking Rate 130 [facility] Work Phone: [phone] Johan Setting Mode (NBG Code) DDDR [facility] Work Phone: [phone] Johan Setting PAV Delay 170 [facility] Work Phone: [phone] Johan Setting DAX Delay 120 [facility] Work Phone: [phone] Johan Statistic RA Percent Paced 83.00 [facility] Work Phone: [phone] CRUSHER AND BLENDER OPERATOR LV-RV Delay 45 [facility] Work Phone: [phone] CRUSHER AND BLENDER OPERATOR Statistic CRUSHER AND BLENDER OPERATOR Percent Paced 99.00 [facility] Work Phone: [phone] Date Time Interrogation Session [id number] [facility] Work Phone: [phone] Implantable Lead Location Right Ventricle [facility] Work Phone: [phone] Implantable Lead Location Left Ventricle [facility] Work Phone: [phone] Implantable Lead Location Right Atrium [facility] Work Phone: [phone] Implantable Lead Model 7122Q Durata SJ4 [facility] Work Phone: [phone] Implantable Lead Model 1458Q Quartet [facility] Work Phone: [phone] Implantable Lead Model 2088TC Tendril STS [facility] Work Phone: [phone] Implantable Lead Serial Number [id number] [facility] Work Phone: [phone] Implantable Lead Serial Number [id number] [facility] Work Phone: [phone] Implantable Lead Serial Number [id number] [facility] Work Phone: [phone] Implantable Pulse Generator Implant Date 20211018 [facility] Work Phone: [phone] Implantable Pulse Generator Puller Out [employer] [facility] Work Phone: [phone] Implantable Pulse Generator Model [place] HF [id number] [facility] Work Phone: [phone] Implantable Pulse Generator Serial Number [id number] [facility] Work Phone: [phone] Implantable Pulse Generator Type Cardiac Resynchronization Therapy - Defibrillator [facility] Work Phone: [phone] Lead Channel Impedance Value 338 [facility] Work Phone: [phone] Lead Channel Impedance Value 438 [facility] Work Phone: [phone] Lead Channel Impedance Value 800 [facility] Work Phone: [phone] Lead Channel Pacing Threshold Amplitude 0.500 [facility] Work Phone: [phone] Lead Channel Pacing Threshold Amplitude 0.630 [facility] Work Phone: [phone] Lead Channel Pacing Threshold Amplitude 0.880 [facility] Work Phone: [phone] Lead Channel Sensing Intrinsic Amplitude 0.900 [facility] Work Phone: [phone] Lead Channel Sensing Intrinsic Amplitude 12.000 [facility] Work Phone: [phone] Lead Channel Setting Pacing Amplitude 1.630 [facility] Work Phone: [phone] Lead Channel Setting Sensing Sensitivity 0.50 [facility] Work Phone: [phone] Rate 1 200 [facility] Work Phone: [phone] Rate 1 156 [facility] Work Phone: [phone] Therapies ATP While Charging, 36J, 40J, 40J [facility] Work Phone: [phone] Therapy Statistic Recent Shocks Aborted 0 [facility] Work Phone: [phone] Therapy Statistic Recent Shocks Delivered 0 [facility] Work Phone: [phone] Ventricular chambers paced during CRUSHER AND BLENDER OPERATOR pacing. LV -> RV [facility] Work Phone: [phone] Zone ID 1 [facility] Work Phone: [phone] Zone ID 2 [facility] Work Phone: [phone] Zone Setting Type Category VF [facility] Work Phone: [phone] Zone Setting Type Category VT-1 [facility] Work Phone: [phone] [facility] Work Phone: [phone] CARDIAC IMPLANTABLE DEVICE [facility] 05-06-2024 Lyle De La Rosa MD - 05/06/2024 Normal In-Office: With Events CRUSHER AND BLENDER OPERATOR-D EVALUATION: * Normal Device Function * Battery: OK, 4.60 yrs * Presenting Rhythm: AP/BP * Underlying Rhythm: SR * Full testing recently done and not completed today. Sensing and impedances are stable. 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 * Total episodes: 152 * Measured value: 0.9mV * Programmed sensitivity setting: mV NOTE TO PROVIDERS: Cardiac Implanted Devices Flowsheets contain detailed Programming and Evaluation data. Full Docket/PDF found below under Scanned Documents . [facility] CNOVon 05-06-2024 CNOV Normal [facility] ECG COMPLETEon 05-06-2024 ECG COMPLETE Normal [facility] No Panel InformationOrdered By: Lyle De La Rosa on 05-06-2024 Implantable Lead Connection Status Connected [facility] Work Phone: [phone] Implantable Lead Implant Date [id number] [facility] Work Phone: [phone] Implantable Lead Puller Out [employer] [facility] Work Phone: [phone] Lead Channel Measurements Date and Time 2024-05-06 [facility] Work Phone: [phone] Lead Channel Pacing Threshold Pulse Width 0.5 [facility] Work Phone: [phone] Lead Channel Setting Pacing Amplitude 2.000 [facility] Work Phone: Lead Channel Setting Pacing Pulse Width 0.5 [facility] Work Phone: Zone Setting Status On [facility] Work Phone: CNOVon 04-14-2024 CNOV Normal [facility] CBC panel Auto (Bld)on 03-19 MCH (RBC) [Entitic mass] 31.0 pg 26.0 - 34.0 pg [facility] MCHC (RBC) [Mass/Vol] 32.0 g/dL 30.5 - 36.0 g/dL [facility] Nucleated RBC (Bld) [#/Vol] NINF [facility] Platelet mean volume (Bld) [Entitic vol] 9.8 fL 9.0 - 12.7 fL [facility] Platelets (Bld) [#/Vol] 225 10*3/uL [facility] WBC (Bld) [#/Vol] 7.94 10*3/uL [facility] Erythrocyte distribution width (RBC) [Ratio] 13.5 % Normal 11.5-15.0 [facility] Comment on above: Order Comment: Speci men Type: BLOOD SPECIMENOrdering Facility: [facility] Address: [address] [place] [address] Performed By: #### 5 8410-2 ####[facility] [id number] [place] [address] [place] Hematocrit (Bld) [Volume fraction] 35.3 % Low 39.0-51.0 [facility] Comment on above: Order Comment: Speci men Type: BLOOD SPECIMENOrdering Facility: [facility] Address: [address] [place] [address] Performed By: #### 5 8410-2 ####[facility] LABIA [id number] [place] [address] [place] Hemoglobin (Bld) [Mass/Vol] 11.3 g/dL Low 13.0-17.0 [facility] Comment on above: Order Comment: Speci men Type: BLOOD SPECIMENOrdering Facility: [facility] Address: [address] [place] [address] Performed By: #### 5 8410-2 ####[facility] LABIA [id number] [place] [address] [place] MCH (RBC) [Entitic mass] 31.0 pg Normal 26.0-34.0 [facility] Comment on above: Order Comment: Speci men Type: BLOOD SPECIMENOrdering Facility: [facility] Address: [address] [place] [address] Performed By: #### 5 8410-2 ####[facility] LABIA [id number] [place] [address] [place] MCHC (RBC) [Mass/Vol] 32.0 g/dL Normal 30.5-36.0 [facility] Comment on above: Order Comment: Speci men Type: BLOOD SPECIMENOrdering Facility: [facility] Address: [address] [place] [address] Performed By: #### 5 8410-2 ####[facility] LABIA [id number] [place] [address] [place] MCV (RBC) [Entitic vol] 96.7 fL Normal 80.0-100.0 [facility] Comment on above: Order Comment: Speci men Type: BLOOD SPECIMENOrdering Facility: [facility] Address: [address] [place] [address] Performed By: #### 5 8410-2 ####[facility] LABIA [id number] [place] [address] [place] Nucleated RBC (Bld) [#/Vol] 10*3/uL Normal <0.01 [facility] Comment on above: Order Comment: Speci men Type: BLOOD SPECIMENOrdering Facility: [facility] Address: [address] [place] [address] Performed By: #### 5 8410-2 ####[facility] LABIA [id number] [place] [address] [place] Platelet mean volume (Bld) [Entitic vol] 9.8 fL Normal 9.0-12.7 [facility] Comment on above: Order Comment: Speci men Type: BLOOD SPECIMENOrdering Facility: [facility] Address: [address] [place] [address] Performed By: #### 5 8410-2 ####[facility] LABCLIA [id number] [place] [address] [place] Platelets (Bld) [#/Vol] 225 10*3/uL Normal 150-400 [facility] Comment on above: Order Comment: Speci men Type: BLOOD SPECIMENOrdering Facility: [facility] Address: [address] [place] [address] Performed By: #### 5 8410-2 ####[facility] LABIA [id number] [place] [address] [place] RBC (Bld) [#/Vol] 3.65 10*6/uL Low 4.20-6.00 [facility] Comment on above: Order Comment: Speci men Type: BLOOD SPECIMENOrdering Facility: [facility] Address: [address] [place] [address] Performed By: #### 5 8410-2 ####[facility] LABIA [id number] [place] [address] [place] WBC (Bld) [#/Vol] 7.94 10*3/uL Normal 3.70-11.00 [facility] Comment on above: Order Comment: Speci men Type: BLOOD SPECIMENOrdering Facility: [facility] Address: [address] [place] [address] Performed By: #### 5 8410-2 ####[facility] LABCLIA [id number] [place] [address] [place] [facility] CBC PNL BLD AUTOon 03-19 [facility] NRBC # BLD AUTO <0.01 NINF [facility] PLATELET # BLD AUTO 225 [facility] PMV BLD AUTO 9.8 fL 9.0 - 12.7 fL [facility] WBC # BLD AUTO 7.94 [facility] MCH (RBC) [Entitic mass] 31 pg 26.0 - 34.0 pg [facility] MCHC (RBC) [Mass/Vol] 32 g/dL 30.5 - 36.0 g/dL [facility] Specimen Type: BLOOD SPECIMEN [facility] Address: [address] [place] [address] Original Ordering Provider: DENISSE [facility] CNOVon 03-19-2024 CNOV Normal [facility] Comprehensive metabolic 2000 panelon 03-19-2024 Albumin [Mass/Vol] 3.8 g/dL Low 3.9-4.9 [facility] Comment on above: Order Comment: Speci men Type: BLOOD SPECIMENOrdering Facility: [facility] Address: [address] [place] [address] Performed By: #### 2 4323-8 ####[facility] LABCLIA [id number] [place] [address] [place] ALP [Catalytic activity/Vol] 138 U/L High 38-113 [facility] Comment on above: Order Comment: Speci men Type: BLOOD SPECIMENOrdering Facility: [facility] Address: [address] [place] [address] Performed By: #### 2 4323-8 ####[facility] LABCLIA [id number] [place] [address] [place] ALT [Catalytic activity/Vol] 10 U/L Normal 10-54 [facility] Comment on above: Order Comment: Speci men Type: BLOOD SPECIMENOrdering Facility: [facility] Address: [address] [place] [address] Performed By: #### 2 4323-8 ####[facility] LABCLIA [id number] [place] [address] [place] Anion gap [Moles/Vol] 13 mmol/L Normal 8-15 [facility] Comment on above: Order Comment: Speci men Type: BLOOD SPECIMENOrdering Facility: [facility] Address: [address] [place] [address] Performed By: #### 2 4323-8 ####[facility] LABCLIA [id number] [place] [address] [place] AST [Catalytic activity/Vol] 27 U/L Normal 14-40 [facility] Comment on above: Order Comment: Speci men Type: BLOOD SPECIMENOrdering Facility: [facility] Address: [address] [place] [address] Performed By: #### 2 4323-8 ####[facility] LABCLIA [id number] [place] [address] [place] Bilirubin [Mass/Vol] 0.2 mg/dL Normal 0.2-1.3 [facility] Comment on above: Order Comment: Speci men Type: BLOOD SPECIMENOrdering Facility: [facility] Address: [address] [place] [address] Performed By: #### 2 4323-8 ####[facility] LABCLIA [id number] [place] [address] [place] Calcium [Mass/Vol] 9.3 mg/dL Normal 8.5-10.2 [facility] Comment on above: Order Comment: Speci men Type: BLOOD SPECIMENOrdering Facility: [facility] Address: [address] [place] [address] Performed By: #### 2 4323-8 ####[facility] LABCLIA [id number] [place] [address] [place] Chloride [Moles/Vol] 103 mmol/L Normal 98-107 [facility] Comment on above: Order Comment: Speci men Type: BLOOD SPECIMENOrdering Facility: [facility] Address: [address] [place] [address] Performed By: #### 2 4323-8 ####[facility] LABCLIA [id number] [place] [address] [place] CO2 [Moles/Vol] 23 mmol/L Normal 22-30 [facility] Comment on above: Order Comment: Speci men Type: BLOOD SPECIMENOrdering Facility: [facility] Address: [address] [place] [address] Performed By: #### 2 4323-8 ####[facility] LABCLIA [id number] [place] [address] [place] Creatinine [Mass/Vol] 1.57 mg/dL High 0.73-1.22 [facility] Comment on above: Order Comment: Speci men Type: BLOOD SPECIMENOrdering Facility: [facility] Address: [address] [place] [address] Performed By: #### 2 4323-8 ####[facility] LABIA [id number] [place] [address] [place] Creatinine and Glomerular filtration rate.predicted panel (S/P/Bld) 44 mL/min/1.73m??? Low >=60 [facility] Comment on above: Order Comment: Speci men Type: BLOOD SPECIMENOrdering Facility: [facility] Address: [address] [place] [address] Result Comment: Bren mated Glomerular Filtration Rate (eGFR) is calculated using the 2020 CKD-EPI creatinine equation. This equation utilizes serum creatinine, sex, and age as parameters. The creatinine assay has traceable calibration to isotope dilution-mass spectrometry. Refer to KDIGO guidelines for clinical interpretation. In patients with unstable renal function, e.g. those with acute kidney injury, the eGFR may not accurately reflect actual GFR. Performed By: #### 2 4323-8 ####[facility] LABCLIA [id number] [place] [address] [place] Glucose [Mass/Vol] 149 mg/dL High 74-99 [facility] Comment on above: Order Comment: Speci men Type: BLOOD SPECIMENOrdering Facility: [facility] Address: [address] [place] [address] Result Comment: The [place] Diabetes Association (ADA) provides guidance for cutoff values for fasting glucose and random glucose. The ADA defines fasting as no caloric intake for at least 8 hours. Fasting plasma glucose results between 100 to 125 mg/dL indicate increased risk for diabetes (prediabetes).Fasting plasma glucose results greater than or equal to 126 mg/dL meet the criteria for diagnosis of diabetes. In the absence of unequivocal hyperglycemia, results should be confirmed by repeat testing. In a patient with classic symptoms of hyperglycemia or hyperglycemic crisis, random plasma glucose results greater than or equal to 200 mg/dL meet the criteria for diagnosis of diabetes.Reference: Standards of Medical Care in Diabetes 2016, [place] [employer] Association. Diabetes Care. 2016.39(Suppl 1). Performed By: #### 2 4323-8 ####[facility] LABCLIA [id number] [place] [address] [place] Potassium [Moles/Vol] 4.7 mmol/L Normal 3.7-5.1 [facility] Comment on above: Order Comment: Nona vang Type: BLOOD SPECIMENOrdering Facility: [facility] Address: [address] [place] [address] Performed By: #### 2 4323-8 ####[facility] LABCLIA [id number] [place] [address] [place] Protein [Mass/Vol] 6.7 g/dL Normal 6.3-8.0 [facility] Comment on above: Order Comment: Nona vang Type: BLOOD SPECIMENOrdering Facility: [facility] Address: [address] [place], [place] [address] Performed By: #### 2 4323-8 ####[facility] LABCLIA [id number] [place] [address] [place] Sodium [Moles/Vol] 139 mmol/L Normal 136-144 [facility] Comment on above: Order Comment: Speci men Type: BLOOD SPECIMENOrdering Facility: [facility] Address: [address] [place] [address] Performed By: #### 2 4323-8 ####[facility]CLIA [id number] [address] [place] Urea nitrogen [Mass/Vol] 28 mg/dL High 9-24 [facility] Comment on above: Order Comment: Speci men Type: BLOOD SPECIMENOrdering Facility: [facility] Address: [address] [place] [address] Performed By: #### 2 4323-8 ####[facility]CLIA [id number] [address] [place] Laboratory - Hematology and Cell countson 03-19-2024 Erythrocyte distribution width (RBC) [Ratio] 13.5 % 11.5 - 15.0 % [facility] Hematocrit (Bld) [Volume fraction] 35.3 % Low 39.0 - 51.0 % [facility] Hemoglobin (Bld) [Mass/Vol] 11.3 g/dL Low 13.0 - 17.0 g/dL [facility] MCV (RBC) [Entitic vol] 96.7 fL 80.0 - 100.0 fL [facility] RBC (Bld) [#/Vol] 3.65 10*6/uL Low 4.20 - 6.0 0 m/uL [facility] No Panel Informationon 03-19 Interpretation and review of laboratory results Abnormal [facility] CNPNon 03-09-2024 CNPN Normal [facility] CNPTOUTREACHon 03-09-2024 CNPTOUTREACH Normal [facility] CBC panel Auto (Bld)on 03-06 Erythrocyte distribution width (RBC) [Ratio] 13.5 % Normal 11.5-15.0 [facility] Comment on above: Order Comment: Speci men Type: BLOOD SPECIMENOrdering Facility: [facility] Address: [address] [place] [address] Performed By: #### 5 8410-2 ####[facility]CLIA [id number] [place] [address] [place] Hematocrit (Bld) [Volume fraction] 34.2 % Low 39.0-51.0 [facility] Comment on above: Order Comment: Speci men Type: BLOOD SPECIMENOrdering Facility: [facility] Address: [address] [place] [address] Performed By: #### 5 8410-2 ####[facility] LABIA [id number] [place] [address] [place] Hemoglobin (Bld) [Mass/Vol] 11.2 g/dL Low 13.0-17.0 [facility] Comment on above: Order Comment: Speci men Type: BLOOD SPECIMENOrdering Facility: [facility] Address: [address] [place] [address] Performed By: #### 5 8410-2 ####[facility]IA [id number] [place] [address] [place] MCH (RBC) [Entitic mass] 31.5 pg Normal 26.0-34.0 [facility] Comment on above: Order Comment: Speci men Type: BLOOD SPECIMENOrdering Facility: [facility] Address: [address] [place] [address] Performed By: #### 5 8410-2 ####[facility] LABIA [id number] [place] [address] [place] MCHC (RBC) [Mass/Vol] 32.7 g/dL Normal 30.5-36.0 [facility] Comment on above: Order Comment: Speci men Type: BLOOD SPECIMENOrdering Facility: [facility] Address: [address] [place] [address] Performed By: #### 5 8410-2 ####[facility]IA [id number] [place] [address] [place] MCV (RBC) [Entitic vol] 96.3 fL Normal 80.0-100.0 [facility] Comment on above: Order Comment: Speci men Type: BLOOD SPECIMENOrdering Facility: [facility] Address: [address] [place] [address] Performed By: #### 5 8410-2 ####[facility] LABCLIA [id number] [place] [address] [place] Nucleated RBC (Bld) [#/Vol] 10*3/uL Normal <0.01 [facility] Comment on above: Order Comment: Speci men Type: BLOOD SPECIMENOrdering Facility: [facility] Address: [address] [place] [address] Performed By: #### 5 8410-2 ####[facility]IA [id number] [place] [address] [place] Platelet mean volume (Bld) [Entitic vol] 9.6 fL Normal 9.0-12.7 [facility] Comment on above: Order Comment: Speci men Type: BLOOD SPECIMENOrdering Facility: [facility] Address: [address] [place] [address] Performed By: #### 5 8410-2 ####[facility]IA [id number] [place] [address] [place] Platelets (Bld) [#/Vol] 219 10*3/uL Normal 150-400 [facility] Comment on above: Order Comment: Speci men Type: BLOOD SPECIMENOrdering Facility: [facility] Address: [address] [place] [address] Performed By: #### 5 8410-2 ####[facility]IA [id number] [place] [address] [place] RBC (Bld) [#/Vol] 3.55 10*6/uL Low 4.20-6.00 [facility] Comment on above: Order Comment: Speci men Type: BLOOD SPECIMENOrdering Facility: [facility] Address: [address] [place] [address] Performed By: #### 5 8410-2 ####[facility]CL[facility] [id number] [place] [address] [place] WBC (Bld) [#/Vol] 7.55 10*3/uL Normal 3.70-11.00 [facility] Comment on above: Order Comment: Speci men Type: BLOOD SPECIMENOrdering Facility: [facility] Address: [address] [place] [address] Performed By: #### 5 8410-2 ####[facility] LABCLIA [id number] [place] [address] [place] [facility] SURGICAL PATHOLOGYon [facility] CASE REPORT [facility] Comment on above: Surgical Pathology R eport Case: [id number] Authorizing Provider: Della Cooper MD Collected: 03/05/2024 11:12 AM Ordering Location: [facility] Received: 03/05/2024 04:15 PM Pathologist: Edy Harrison MD Specimens: A) - Colon, Ascending Polyp, polyp x3, R/O Adenoma B) - Colon, Descending, Polyp, R/O Adenoma F FINAL DIAGNOSIS [facility] Comment on above: A. Colon, ascending, polyp x 3, biopsy: - Fragments of tubular adenoma. B. Colon, descending, polyp, biopsy: - Tubular adenoma. [facility] FINAL PERFORM[facility] LAB [facility] Comment on above: Diagnostic interpret ation performed at [facility], [address] [place] [address] CLIA# [id number] Fulfillment Specialist: Pradip Blackwood M.D. [facility] GROSS DESCRIPTION [facility] Comment on above: A. Colon, Ascending Polyp Received in formalin are multiple pieces of torrez, soft tissue aggregating to 1.6 x 0.3 x 0.2 cm. Totally submitted in one cassette. B. Colon, Descending, Polyp Received in formalin are two pieces of torrez, soft tissue aggregating to 0.8 x 0.2 x 0.2 cm. Totally submitted in one cassette. March 05, 2024 6:10 PM Gross examination performed at [facility], [address] [place] [address] Specimen Type: TISSU E SPECIMEN [facility]ing Facility[facility] Address: [address] [place] [address] Original Ordering Provider: DELLA COOPER [facility] CNDSon 03-06-2024 CNDS Normal [facility] Comprehensive metabolic 2000 panelon 03-06-2024 Albumin [Mass/Vol] 3.5 g/dL Low 3.9-4.9 [facility] Comment on above: Order Comment: Speci men Type: BLOOD SPECIMENOrdering Facility: [facility] Address: [address] [place] [address] Performed By: #### 2 4323-8 ####[facility] LABCLIA [id number] [place] [address] [place] ALP [Catalytic activity/Vol] 126 U/L High 38-113 [facility] Comment on above: Order Comment: Speci men Type: BLOOD SPECIMENOrdering Facility: [facility] Address: [address] [place] [address] Performed By: #### 2 4323-8 ####[facility] LABCLIA [id number] [place] [address] [place] ALT [Catalytic activity/Vol] 10 U/L Normal 10-54 [facility] Comment on above: Order Comment: Speci men Type: BLOOD SPECIMENOrdering Facility: [facility] Address: [address] [place] [address] Performed By: #### 2 4323-8 ####[facility] LABCLIA [id number] [place] [address] [place] Anion gap [Moles/Vol] 12 mmol/L Normal 8-15 [facility] Comment on above: Order Comment: Speci men Type: BLOOD SPECIMENOrdering Facility: [facility] Address: [address] [place] [address] Performed By: #### 2 4323-8 ####[facility] LABCLIA [id number] [place] [address] [place] AST [Catalytic activity/Vol] 17 U/L Normal 14-40 [facility] Comment on above: Order Comment: Speci men Type: BLOOD SPECIMENOrdering Facility: [facility] Address: [address] [place] [address] Performed By: #### 2 4323-8 ####[facility] LABCLIA [id number] [place] [address] [place] Bilirubin [Mass/Vol] 0.5 mg/dL Normal 0.2-1.3 [facility] Comment on above: Order Comment: Speci men Type: BLOOD SPECIMENOrdering Facility: [facility] Address: [address] [place] [address] Performed By: #### 2 4323-8 ####[facility] LABCLIA [id number] [place] [address] [place] Calcium [Mass/Vol] 8.9 mg/dL Normal 8.5-10.2 [facility] Comment on above: Order Comment: Speci men Type: BLOOD SPECIMENOrdering Facility: [facility] Address: [address] [place] [address] Performed By: #### 2 4323-8 ####[facility] LABCLIA [id number] [place] [address] [place] Chloride [Moles/Vol] 103 mmol/L Normal 98-107 [facility] Comment on above: Order Comment: Speci men Type: BLOOD SPECIMENOrdering Facility: [facility] Address: [address] [place] [address] Performed By: #### 2 4323-8 ####[facility] LABCLIA [id number] [place] [address] [place] CO2 [Moles/Vol] 23 mmol/L Normal 22-30 [facility] Comment on above: Order Comment: Speci men Type: BLOOD SPECIMENOrdering Facility: [facility] Address: [address] [place] [address] Performed By: #### 2 4323-8 ####[facility] LABCLIA [id number] [place] [address] [place] Creatinine [Mass/Vol] 1.61 mg/dL High 0.73-1.22 [facility] Comment on above: Order Comment: Speci men Type: BLOOD SPECIMENOrdering Facility: [facility] Address: [address] [place] [address] Performed By: #### 2 4323-8 ####[facility] LABCLIA [id number] [facility] [place] [address] [place] Creatinine and Glomerular filtration rate.predicted panel (S/P/Bld) 42 mL/min/1.73m??? Low >=60 [facility] Comment on above: Order Comment: Speci men Type: BLOOD SPECIMENOrdering Facility: [facility] Address: [address] [place] [address] Result Comment: Bren mated Glomerular Filtration Rate (eGFR) is calculated using the 2020 CKD-EPI creatinine equation. This equation utilizes serum creatinine, sex, and age as parameters. The creatinine assay has traceable calibration to isotope dilution-mass spectrometry. Refer to KDIGO guidelines for clinical interpretation. In patients with unstable renal function, e.g. those with acute kidney injury, the eGFR may not accurately reflect actual GFR. Performed By: #### 2 4323-8 ####[facility] LABCLIA [id number] [facility] [place] [address] [place] Glucose [Mass/Vol] 137 mg/dL High 74-99 [facility] Comment on above: Order Comment: Speci men Type: BLOOD SPECIMENOrdering Facility: [facility] Address: [address] [place] [address] Result Comment: The [place] Diabetes [employer] (ADA) provides guidance for cutoff values for fasting glucose and random glucose. The ADA defines fasting as no caloric intake for at least 8 hours. Fasting plasma glucose results between 100 to 125 mg/dL indicate increased risk for diabetes (prediabetes).Fasting plasma glucose results greater than or equal to 126 mg/dL meet the criteria for diagnosis of diabetes. In the absence of unequivocal hyperglycemia, results should be confirmed by repeat testing. In a patient with classic symptoms of hyperglycemia or hyperglycemic crisis, random plasma glucose results greater than or equal to 200 mg/dL meet the criteria for diagnosis of diabetes.Reference: Standards of Medical Care in Diabetes 2016, [place] [employer]. Diabetes Care. 2016.39(Suppl 1). Performed By: #### 2 4323-8 ####[facility] LABCLIA [id number] [place] [address] [place] Potassium [Moles/Vol] 4.8 mmol/L Normal 3.7-5.1 [facility] Comment on above: Order Comment: Speci men Type: BLOOD SPECIMENOrdering Facility: [facility] Address: [address] [place] [address] Performed By: #### 2 4323-8 ####[facility] LABCLIA [id number] [place] [address] [place] Protein [Mass/Vol] 6.2 g/dL Low 6.3-8.0 [facility] Comment on above: Order Comment: Speci men Type: BLOOD SPECIMENOrdering Facility: [facility] Address: [address] [place] [address] Performed By: #### 2 4323-8 ####[facility] LABCLIA [id number] [place] [address] [place] Sodium [Moles/Vol] 138 mmol/L Normal 136-144 [facility] Comment on above: Order Comment: Speci men Type: BLOOD SPECIMENOrdering Facility: [facility] Address: [address] [place] [address] Performed By: #### 2 4323-8 ####[facility] LABCLIA [id number] [place] [address] [place] Urea nitrogen [Mass/Vol] 21 mg/dL Normal 9-24 [facility] Comment on above: Order Comment: Speci men Type: BLOOD SPECIMENOrdering Facility: [facility] Address: [address] [place] [address] Performed By: #### 2 4323-8 ####[facility] LABCLIA [id number] [place] [address] [place] NUTRITIONon 03-06-2024 NUTRITION Normal [facility] ANES POSTPROC EVALon 024 ANES POSTPROC EVAL Normal [facility] ANES PRE-OPon 03-05-2024 ANES PRE-OP Normal [facility] CASE MANAGEMon 03-05-2024 CASE MANAGEM Normal [facility] CBC panel Auto (Bld)on 03-05 Erythrocyte distribution width (RBC) [Ratio] 13.6 % Normal 11.5-15.0 [facility] Comment on above: Order Comment: Speci men Type: BLOOD SPECIMENOrdering Facility: [facility] Address: [address] [place] [address] Performed By: #### 5 8410-2 ####[facility] LABIA [id number] [place] [address] [place] Hematocrit (Bld) [Volume fraction] 32.4 % Low 39.0-51.0 [facility] Comment on above: Order Comment: Speci men Type: BLOOD SPECIMENOrdering Facility: [facility] Address: [address] [place] [address] Performed By: #### 5 8410-2 ####[facility] LABCLIA [id number] [place] [address] [place] Hemoglobin (Bld) [Mass/Vol] 10.7 g/dL Low 13.0-17.0 [facility] Comment on above: Order Comment: Speci men Type: BLOOD SPECIMENOrdering Facility: [facility] Address: [address] [place] [address] Performed By: #### 5 8410-2 ####[facility] LABIA [id number] [place] [address] [place] MCH (RBC) [Entitic mass] 31.3 pg Normal 26.0-34.0 [facility] Comment on above: Order Comment: Speci men Type: BLOOD SPECIMENOrdering Facility: [facility] Address: [address] [place] [address] Performed By: #### 5 8410-2 ####[facility] LABIA [id number] [place] [address] [place] MCHC (RBC) [Mass/Vol] 33.0 g/dL Normal 30.5-36.0 [facility] Comment on above: Order Comment: Speci men Type: BLOOD SPECIMENOrdering Facility: [facility] Address: [address] [place] [address] Performed By: #### 5 8410-2 ####[facility] LABIA [id number] [place] [address] [place] MCV (RBC) [Entitic vol] 94.7 fL Normal 80.0-100.0 [facility] Comment on above: Order Comment: Speci men Type: BLOOD SPECIMENOrdering Facility: [facility] Address: [address] [place] [address] Performed By: #### 5 8410-2 ####[facility] LABIA [id number] [place] [address] [place] Nucleated RBC (Bld) [#/Vol] 10*3/uL Normal <0.01 [facility] Comment on above: Order Comment: Speci men Type: BLOOD SPECIMENOrdering Facility: [facility] Address: [address] [place] [address] Performed By: #### 5 8410-2 ####[facility] LABIA [id number] [place] [address] [place] Platelet mean volume (Bld) [Entitic vol] 9.6 fL Normal 9.0-12.7 [facility] Comment on above: Order Comment: Speci men Type: BLOOD SPECIMENOrdering Facility: [facility] Address: [address] [place] [address] Performed By: #### 5 8410-2 ####[facility] LABCLIA [id number] [place] [address] [place] Platelets (Bld) [#/Vol] 199 10*3/uL Normal 150-400 [facility] Comment on above: Order Comment: Speci men Type: BLOOD SPECIMENOrdering Facility: [facility] Address: [address] [place] [address] Performed By: #### 5 8410-2 ####[facility] LABCLIA [id number] [place] [address] [place] RBC (Bld) [#/Vol] 3.42 10*6/uL Low 4.20-6.00 [facility] Comment on above: Order Comment: Speci men Type: BLOOD SPECIMENOrdering Facility: [facility] Address: [address] [place] [address] Performed By: #### 5 8410-2 ####[facility] LABIA [id number] [place] [address] [place] WBC (Bld) [#/Vol] 7.43 10*3/uL Normal 3.70-11.00 [facility] Comment on above: Order Comment: Speci men Type: BLOOD SPECIMENOrdering Facility: [facility] Address: [address] [place] [address] Performed By: #### 5 8410-2 ####[facility] LABCLIA [id number] [place] [address] [place] Comprehensive metabolic 2000 panelon 10-17-2024 Albumin [Mass/Vol] 3.3 g/dL Low 3.9-4.9 [facility] Comment on above: Order Comment: Speci men Type: BLOOD SPECIMENOrdering Facility: [facility] Address: [address] [place] [address] Performed By: #### 2 4323-8 ####[facility] LABCLIA [id number] [place] [address] [place] ALP [Catalytic activity/Vol] 114 U/L High 38-113 [facility] Comment on above: Order Comment: Speci men Type: BLOOD SPECIMENOrdering Facility: [facility] Address: [address] [place] [address] Performed By: #### 2 4323-8 ####[facility] LABCLIA [id number] [place] [address] [place] ALT [Catalytic activity/Vol] 10 U/L Normal 10-54 [facility] Comment on above: Order Comment: Speci men Type: BLOOD SPECIMENOrdering Facility: [facility] Address: [address] [place] [address] Performed By: #### 2 4323-8 ####[facility] LABCLIA [id number] [place] [address] [place] Anion gap [Moles/Vol] 9 mmol/L Normal 8-15 [facility] Comment on above: Order Comment: Speci men Type: BLOOD SPECIMENOrdering Facility: [facility] Address: [address] [place] [address] Performed By: #### 2 4323-8 ####[facility] LABCLIA [id number] [place] [address] [place] AST [Catalytic activity/Vol] 19 U/L Normal 14-40 [facility] Comment on above: Order Comment: Speci men Type: BLOOD SPECIMENOrdering Facility: [facility] Address: [address] [place] [address] Performed By: #### 2 4323-8 ####[facility] LABCLIA [id number] [facility] [place] [address] [place] Bilirubin [Mass/Vol] 0.4 mg/dL Normal 0.2-1.3 [facility] Comment on above: Order Comment: Speci men Type: BLOOD SPECIMENOrdering Facility: [facility] Address: [address] [place] [address] Performed By: #### 2 4323-8 ####[facility] LABCLIA [id number] [facility] [place] [address] [place] Calcium [Mass/Vol] 8.6 mg/dL Normal 8.5-10.2 [facility] Comment on above: Order Comment: Speci men Type: BLOOD SPECIMENOrdering Facility: [facility] Address: [address] [place] [address] Performed By: #### 2 4323-8 ####[facility] LABCLIA [id number] [place] [address] [place] Chloride [Moles/Vol] 102 mmol/L Normal 98-107 [facility] Comment on above: Order Comment: Speci men Type: BLOOD SPECIMENOrdering Facility: [facility] Address: [address] [place] [address] Performed By: #### 2 4323-8 ####[facility] LABCLIA [id number] [place] [address] [place] CO2 [Moles/Vol] 25 mmol/L Normal 22-30 [facility] Comment on above: Order Comment: Speci men Type: BLOOD SPECIMENOrdering Facility: [facility] Address: [address] [place] [address] Performed By: #### 2 4323-8 ####[facility] LABCLIA [id number] [place] [id number] [place] Creatinine [Mass/Vol] 1.50 mg/dL High 0.73-1.22 [facility] Comment on above: Order Comment: Nona vang Type: BLOOD SPECIMENOrdering Facility: [facility] Address: [address] [place] [address] Performed By: #### 2 4323-8 ####[facility] LABCLIA [id number] [place] [address] [place] Creatinine and Glomerular filtration rate.predicted panel (S/P/Bld) 46 mL/min/1.73m??? Low >=60 [facility] Comment on above: Order Comment: Nona vang Type: BLOOD SPECIMENOrdering Facility: [facility] Address: [address] [place] [address] Result Comment: Bren mated Glomerular Filtration Rate (eGFR) is calculated using the 2020 CKD-EPI creatinine equation. This equation utilizes serum creatinine, sex, and age as parameters. The creatinine assay has traceable calibration to isotope dilution-mass spectrometry. Refer to KDIGO guidelines for clinical interpretation. In patients with unstable renal function, e.g. those with acute kidney injury, the eGFR may not accurately reflect actual GFR. Performed By: #### 2 4323-8 ####[facility] LABCLIA [id number] [place] [address] [place] Glucose [Mass/Vol] 104 mg/dL High 74-99 [facility] Comment on above: Order Comment: Nona vang Type: BLOOD SPECIMENOrdering Facility: [facility] Address: [address] [place] [address] Result Comment: The [place] Diabetes [employer] (ADA) provides guidance for cutoff values for fasting glucose and random glucose. The ADA defines fasting as no caloric intake for at least 8 hours. Fasting plasma glucose results between 100 to 125 mg/dL indicate increased risk for diabetes (prediabetes).Fasting plasma glucose results greater than or equal to 126 mg/dL meet the criteria for diagnosis of diabetes. In the absence of unequivocal hyperglycemia, results should be confirmed by repeat testing. In a patient with classic symptoms of hyperglycemia or hyperglycemic crisis, random plasma glucose results greater than or equal to 200 mg/dL meet the criteria for diagnosis of diabetes.Reference: Standards of Medical Care in Diabetes 2016, [place] [employer]. Diabetes Care. 2016.39(Suppl 1). Performed By: #### 2 4323-8 ####[facility] LABCLIA [id number] [place] [address] [place] Potassium [Moles/Vol] 4.6 mmol/L Normal 3.7-5.1 [facility] Comment on above: Order Comment: Speci men Type: BLOOD SPECIMENOrdering Facility: [facility] Address: [address] [place] [address] Performed By: #### 2 4323-8 ####[facility] LABCLIA [id number] [place] [address] [place] Protein [Mass/Vol] 5.7 g/dL Low 6.3-8.0 [facility] Comment on above: Order Comment: Speci men Type: BLOOD SPECIMENOrdering Facility: [facility] Address: [address] [place] [address] Performed By: #### 2 4323-8 ####[facility] LABIA [id number] [place] [address] [place] Sodium [Moles/Vol] 136 mmol/L Normal 136-144 [facility] Comment on above: Order Comment: Speci men Type: BLOOD SPECIMENOrdering Facility: [facility] Address: [address] [place] [address] Performed By: #### 2 4323-8 ####[facility] LABCLIA [id number] [place] [address] [place] Urea nitrogen [Mass/Vol] 18 mg/dL Normal 9-24 [facility] Comment on above: Order Comment: Speci men Type: BLOOD SPECIMENOrdering Facility: [facility] Address: [address] [place] [address] Performed By: #### 2 4323-8 ####[facility] LABCLIA [id number] [place] [address] [place] HISTORY PHYSICALon HISTORY PHYSICAL Normal [facility] NURSING PROGon 03-05-2024 NURSING PROG Normal [facility] PT panel Coag (PPP)on 2023 INR Coag (PPP) [Relative time] 1.1 {INR} Normal 0.9-1.3 [facility] Comment on above: Order Comment: Specnitza vang Type: BLOOD SPECIMENOrdering Facility: [facility] Address: [address] [place] [address] Result Comment: Antonina min K Antagonist (VKA) Therapeutic Range: INR 2 to 3 (Target INR of 2.5)Note: For patients treated with VKA drugs, such as warfarin, the [place] [employer] 2012 Guideline recommends a therapeutic INR range of 2 to 3 (target INR of 2.5). This recommendation includes high-risk patients with antiphospholipid syndrome with previous arterial or venous thromboembolism, current-generation mechanical or bioprosthetic aortic heart valve replacement.Note: Patients with mechanical aortic valve replacement and additional risk factors for thromboembolic events (atrial fibrillation, previous thromboembolism, LV dysfunction, hypercoagulable conditions) or an older generation mechanical AVR (i.e., ball in-Cage) or any mechanical MVR should have a INR therapeutic range of 2.5 to 3.5 (target INR of 3).Ortega GH, et al. Chest 2012, 141:7S-47SSunil RA, et al. [facility] 2017, 70: 252-289 Performed By: #### 3 4528-0 ####[facility] LABCLIA [id number] [place] [address] [place] PT Coag (PPP) [Time] 11.4 s Normal 9.7-13.0 [facility] Comment on above: Order Comment: Nona vang Type: BLOOD SPECIMENOrdering Facility: [facility] Address: [address] [place] [id number] Performed By: #### 3 4528-0 ####[facility] LABCLIA [id number] [address] [place] SURGICAL PATHOLOGYon 03-05-2 024 CASE REPORT Normal [facility] Comment on above: Order Comment: Speci men Type: TISSUE SPECIMENOrdering Facility: [facility] Address: [address] [place] [address] Result Comment: Surg ical Pathology Report Case: [id number] Provider: Della Cooper MD Collected: 03/05/2024 11:[address] [facility] Received: 03/05/2024 04:15 PMPathologist: Edy Harrison MDSpecimens: A) - Colon, Ascending Polyp, polyp x3, R/O Adenoma B) - Colon, Descending, Polyp, R/O Adenoma Performed By: #### S ####[facility] LABCLIA [id number] [address] [place] FINAL DIAGNOSIS Normal [facility] Comment on above: Order Comment: Speci men Type: TISSUE SPECIMENOrdering Facility: [facility] Address: [address] [place] [address] Result Comment: A. C olon, ascending, polyp x 3, biopsy:- Fragments of tubular adenoma.B. Colon, descending, polyp, biopsy:- Tubular adenoma. Performed By: #### S ####[facility] LABCLIA [id number] [address] [place] FINAL PERFORMING LAB Normal [facility] Comment on above: Order Comment: Speci men Type: TISSUE SPECIMENOrdering Facility: [facility] Address: [address] [place] [address] Result Comment: Diag nostic interpretation performed at [facility], [address] [place] [address] CLIA# [id number] Director: Pradip Blackwood M.D. Performed By: #### S ####[facility] LABCLIA [id number] [place] [address] [place] OF [place] GROSS DESCRIPTION Normal [facility] Comment on above: Order Comment: Speci men Type: TISSUE SPECIMENOrdering Facility: [facility] Address: [address] [place] [address] Result Comment: A. C olon, Ascending PolypReceived in formalin are multiple pieces of torrez, soft tissue aggregating to 1.6 x 0.3 x 0.2 cm. Totally submitted in one cassette.B. Colon, Descending, PolypReceived in formalin are two pieces of torrez, soft tissue aggregating to 0.8 x 0.2 x 0.2 cm. Totally submitted in one cassette.BC March 05, 2024 6:10 PMGross examination performed at [facility], [address] [place] [address] Performed By: #### S ####[facility] LABCLIA [id number] [address] [place] TYPE + SCREENon 03-05-2024 ABO A Normal [facility] Comment on above: Order Comment: Speci men Type: BLOOD SPECIMENOrdering Facility: [facility] Address: [address] [place] [address] Performed By: #### T SCR ####CC [facility] BLOOD BANKCLIA [id number] [place] [address] [place] Rh Nom (Bld) Positive Normal [facility] Comment on above: Order Comment: Speci men Type: BLOOD SPECIMENOrdering Facility: [facility] Address: [address] [place] [address] Performed By: #### T SCR ####CC [facility] BLOOD BANKCLIA [id number] [place] [address] [place] TYPE AND SCREEN EXPIRATION 03/08/2024 23:59 Normal [facility] Comment on above: Order Comment: Speci men Type: BLOOD SPECIMENOrdering Facility: [facility] Address: [address] [place] [address] Performed By: #### T SCR ####CC [facility] BLOOD BANKCLIA [id number] [place] [id number] [place] ALLIED HEALTHon 03-04-2024 ALLIED HEALTH Normal [facility] CASE MANAGEMon 03-04-2024 CASE MANAGEM Normal [facility] CBC panel Auto (Bld)on 03-04 Erythrocyte distribution width (RBC) [Ratio] 13.7 % Normal 11.5-15.0 [facility] Comment on above: Order Comment: Speci men Type: BLOOD SPECIMENOrdering Facility: [facility] Address: [address] [place] [address] Performed By: #### 5 8410-2 ####[facility] LABCLIA [id number] [place] [address] [place] Hematocrit (Bld) [Volume fraction] 33.7 % Low 39.0-51.0 [facility] Comment on above: Order Comment: Speci men Type: BLOOD SPECIMENOrdering Facility: [facility] Address: [address] [place] [address] Performed By: #### 5 8410-2 ####[facility] LABCLIA [id number] [place] [address] [place] Hemoglobin (Bld) [Mass/Vol] 11.2 g/dL Low 13.0-17.0 [facility] Comment on above: Order Comment: Speci men Type: BLOOD SPECIMENOrdering Facility: [facility] Address: [address] [place] [address] Performed By: #### 5 8410-2 ####[facility] LABCLIA [id number] [place] [address] [place] MCH (RBC) [Entitic mass] 31.8 pg Normal 26.0-34.0 [facility] Comment on above: Order Comment: Speci men Type: BLOOD SPECIMENOrdering Facility: [facility] Address: [address] [place] [address] Performed By: #### 5 8410-2 ####[facility] LABCLIA [id number] [place] [address] [place] MCHC (RBC) [Mass/Vol] 33.2 g/dL Normal 30.5-36.0 [facility] Comment on above: Order Comment: Speci men Type: BLOOD SPECIMENOrdering Facility: [facility] Address: [address] [place] [address] Performed By: #### 5 8410-2 ####[facility] LABIA [id number] [place] [address] [place] MCV (RBC) [Entitic vol] 95.7 fL Normal 80.0-100.0 [facility] Comment on above: Order Comment: Speci men Type: BLOOD SPECIMENOrdering Facility: [facility] Address: [address] [place] [address] Performed By: #### 5 8410-2 ####[facility] LABIA [id number] [place] [address] [place] Nucleated RBC (Bld) [#/Vol] 10*3/uL Normal <0.01 [facility] Comment on above: Order Comment: Speci men Type: BLOOD SPECIMENOrdering Facility: [facility] Address: [address] [place] [address] Performed By: #### 5 8410-2 ####[facility] LABIA [id number] [place] [address] [place] Platelet mean volume (Bld) [Entitic vol] 9.6 fL Normal 9.0-12.7 [facility] Comment on above: Order Comment: Speci men Type: BLOOD SPECIMENOrdering Facility: [facility] Address: [address] [place] [address] Performed By: #### 5 8410-2 ####[facility] LABCLIA [id number] [place] [address] [place] Platelets (Bld) [#/Vol] 203 10*3/uL Normal 150-400 [facility] Comment on above: Order Comment: Speci men Type: BLOOD SPECIMENOrdering Facility: [facility] Address: [address] [place] [address] Performed By: #### 5 8410-2 ####[facility] LABCLIA [id number] [place] [address] [place] RBC (Bld) [#/Vol] 3.52 10*6/uL Low 4.20-6.00 [facility] Comment on above: Order Comment: Speci men Type: BLOOD SPECIMENOrdering Facility: [facility] Address: [address] [place] [address] Performed By: #### 5 8410-2 ####[facility] LABCLIA [id number] [place] [address] [place] WBC (Bld) [#/Vol] 7.05 10*3/uL Normal 3.70-11.00 [facility] Comment on above: Order Comment: Speci men Type: BLOOD SPECIMENOrdering Facility: [facility] Address: [address] [place] [address] Performed By: #### 5 8410-2 ####[facility] LABIA [id number] [place] [address] [place] Comprehensive metabolic 2000 panelon 03-04-2024 Albumin [Mass/Vol] 3.5 g/dL Low 3.9-4.9 [facility] Comment on above: Order Comment: Speci men Type: BLOOD SPECIMENOrdering Facility: [facility] Address: [address] [place] [address] Performed By: #### 2 4323-8 ####[facility] LABIA [id number] [place] [address] [place] ALP [Catalytic activity/Vol] 114 U/L High 38-113 [facility] Comment on above: Order Comment: Speci men Type: BLOOD SPECIMENOrdering Facility: [facility] Address: [address] [place] [id number] Performed By: #### 2 4323-8 ####[facility] LABCLIA [id number] [place] [address] [place] ALT [Catalytic activity/Vol] 9 U/L Low 10-54 [facility] Comment on above: Order Comment: Speci men Type: BLOOD SPECIMENOrdering Facility: [facility] Address: [address] [place] [address] Performed By: #### 2 4323-8 ####[facility] LABCLIA [id number] [place] [address] [place] Anion gap [Moles/Vol] 11 mmol/L Normal 8-15 [facility] Comment on above: Order Comment: Speci men Type: BLOOD SPECIMENOrdering Facility: [facility] Address: [address] [place] [address] Performed By: #### 2 4323-8 ####[facility] LABCLIA [id number] [place] [address] [place] AST [Catalytic activity/Vol] 16 U/L Normal 14-40 [facility] Comment on above: Order Comment: Speci men Type: BLOOD SPECIMENOrdering Facility: [facility] Address: [address] [place] [address] Performed By: #### 2 4323-8 ####[facility] LABCLIA [id number] [place] [address] [place] Bilirubin [Mass/Vol] 0.4 mg/dL Normal 0.2-1.3 [facility] Comment on above: Order Comment: Speci men Type: BLOOD SPECIMENOrdering Facility: [facility] Address: [address] [place] [address] Performed By: #### 2 4323-8 ####[facility] LABCLIA [id number] [place] [address] [place] Calcium [Mass/Vol] 8.9 mg/dL Normal 8.5-10.2 [facility] Comment on above: Order Comment: Speci men Type: BLOOD SPECIMENOrdering Facility: [facility] Address: [address] [place] [address] Performed By: #### 2 4323-8 ####[facility] LABCLIA [id number] [place] [address] [place] Chloride [Moles/Vol] 102 mmol/L Normal 98-107 [facility] Comment on above: Order Comment: Speci men Type: BLOOD SPECIMENOrdering Facility: [facility] Address: [address] [place] [address] Performed By: #### 2 4323-8 ####[facility] LABCLIA [id number] [place] [address] [place] CO2 [Moles/Vol] 22 mmol/L Normal 22-30 [facility] Comment on above: Order Comment: Speci men Type: BLOOD SPECIMENOrdering Facility: [facility] Address: [address] [place] [address] Performed By: #### 2 4323-8 ####[facility] LABCLIA [id number] [place] [address] [place] Creatinine [Mass/Vol] 1.53 mg/dL High 0.73-1.22 [facility] Comment on above: Order Comment: Speci men Type: BLOOD SPECIMENOrdering Facility: [facility] Address: [address] [place] [address] Performed By: #### 2 4323-8 ####[facility] LABCLIA [id number] [place] [address] [place] Creatinine and Glomerular filtration rate.predicted panel (S/P/Bld) 45 mL/min/1.73m??? Low >=60 [facility] Comment on above: Order Comment: Speci men Type: BLOOD SPECIMENOrdering Facility: [facility] Address: [address] [place] [address] Result Comment: Bren mated Glomerular Filtration Rate (eGFR) is calculated using the 2020 CKD-EPI creatinine equation. This equation utilizes serum creatinine, sex, and age as parameters. The creatinine assay has traceable calibration to isotope dilution-mass spectrometry. Refer to KDIGO guidelines for clinical interpretation. In patients with unstable renal function, e.g. those with acute kidney injury, the eGFR may not accurately reflect actual GFR. Performed By: #### 2 4323-8 ####[facility] LABCLIA [id number] [place] [address] [place] Glucose [Mass/Vol] 172 mg/dL High 74-99 [facility] Comment on above: Order Comment: Nona vang Type: BLOOD SPECIMENOrdering Facility: [facility] Address: [address] [place] [address] Result Comment: The [place] [employer] (ADA) provides guidance for cutoff values for fasting glucose and random glucose. The ADA defines fasting as no caloric intake for at least 8 hours. Fasting plasma glucose results between 100 to 125 mg/dL indicate increased risk for diabetes (prediabetes).Fasting plasma glucose results greater than or equal to 126 mg/dL meet the criteria for diagnosis of diabetes. In the absence of unequivocal hyperglycemia, results should be confirmed by repeat testing. In a patient with classic symptoms of hyperglycemia or hyperglycemic crisis, random plasma glucose results greater than or equal to 200 mg/dL meet the criteria for diagnosis of diabetes.Reference: Standards of Medical Care in Diabetes 2016, [place] [employer]. Diabetes Care. 2016.39(Suppl 1). Performed By: #### 2 4323-8 ####[facility] LABCLIA [id number] [place] [address] [place] Potassium [Moles/Vol] 5.2 mmol/L High 3.7-5.1 [facility] Comment on above: Order Comment: Nona vang Type: BLOOD SPECIMENOrdering Facility: [facility] Address: [address] [place] [address] Performed By: #### 2 4323-8 ####[facility] LABCLIA [id number] [place] [address] [place] Protein [Mass/Vol] 6.0 g/dL Low 6.3-8.0 [facility] Comment on above: Order Comment: Speci men Type: BLOOD SPECIMENOrdering Facility: [facility] Address: [address] [place] [address] Performed By: #### 2 4323-8 ####[facility] LABCLIA [id number] [place] [address] [place] Sodium [Moles/Vol] 135 mmol/L Low 136-144 [facility] Comment on above: Order Comment: Speci men Type: BLOOD SPECIMENOrdering Facility: [facility] Address: [address] [place] [address] Performed By: #### 2 4323-8 ####[facility] LABIA [id number] [place] [address] [place] Urea nitrogen [Mass/Vol] 24 mg/dL Normal 9-24 [facility] Comment on above: Order Comment: Speci men Type: BLOOD SPECIMENOrdering Facility: [facility] Address: [address] [place] [address] Performed By: #### 2 4323-8 ####[facility] LABIA [id number] [place] [address] [place] ECG COMPLETEon 03-04-2024 ECG COMPLETE Normal [facility] CBC panel Auto (Bld)on 03-03 Erythrocyte distribution width (RBC) [Ratio] 13.5 % Normal 11.5-15.0 [facility] Comment on above: Order Comment: Speci men Type: BLOOD SPECIMENOrdering Facility: [facility] Address: [address] [place] [address] Performed By: #### 5 8410-2 ####[facility] LABCLIA [id number] [place] [address] [place] Hematocrit (Bld) [Volume fraction] 33.7 % Low 39.0-51.0 [facility] Comment on above: Order Comment: Speci men Type: BLOOD SPECIMENOrdering Facility: [facility] Address: [address] [place] [address] Performed By: #### 5 8410-2 ####[facility] LABIA [id number] [place] [address] [place] Hemoglobin (Bld) [Mass/Vol] 11.3 g/dL Low 13.0-17.0 [facility] Comment on above: Order Comment: Speci men Type: BLOOD SPECIMENOrdering Facility: [facility] Address: [address] [place] [address] Performed By: #### 5 8410-2 ####[facility] LABIA [id number] [place] [address] [place] MCH (RBC) [Entitic mass] 31.6 pg Normal 26.0-34.0 [facility] Comment on above: Order Comment: Speci men Type: BLOOD SPECIMENOrdering Facility: [facility] Address: [address] [place] [address] Performed By: #### 5 8410-2 ####[facility] LABIA [id number] [place] [address] [place] MCHC (RBC) [Mass/Vol] 33.5 g/dL Normal 30.5-36.0 [facility] Comment on above: Order Comment: Speci men Type: BLOOD SPECIMENOrdering Facility: [facility] Address: [address] [place] [address] Performed By: #### 5 8410-2 ####[facility] LABIA [id number] [place] [address] [place] MCV (RBC) [Entitic vol] 94.1 fL Normal 80.0-100.0 [facility] Comment on above: Order Comment: Speci men Type: BLOOD SPECIMENOrdering Facility: [facility] Address: [address] [place] [address] Performed By: #### 5 8410-2 ####[facility] LABCLIA [id number] [place] [address] [place] Nucleated RBC (Bld) [#/Vol] 10*3/uL Normal <0.01 [facility] Comment on above: Order Comment: Speci men Type: BLOOD SPECIMENOrdering Facility: [facility] Address: [address] [place] [address] Performed By: #### 5 8410-2 ####[facility] LABCLIA [id number] [place] [address] [place] Platelet mean volume (Bld) [Entitic vol] 9.5 fL Normal 9.0-12.7 [facility] Comment on above: Order Comment: Speci men Type: BLOOD SPECIMENOrdering Facility: [facility] Address: [address] [place] [address] Performed By: #### 5 8410-2 ####[facility] LABCLIA [id number] [place] [address] [place] Platelets (Bld) [#/Vol] 206 10*3/uL Normal 150-400 [facility] Comment on above: Order Comment: Speci men Type: BLOOD SPECIMENOrdering Facility: [facility] Address: [address] [place] [address] Performed By: #### 5 8410-2 ####[facility] LABCLIA [id number] [place] [address] [place] RBC (Bld) [#/Vol] 3.58 10*6/uL Low 4.20-6.00 [facility] Comment on above: Order Comment: Speci men Type: BLOOD SPECIMENOrdering Facility: [facility] Address: [address] [place] [address] Performed By: #### 5 8410-2 ####[facility] LABCLIA [id number] [place] [address] [place] WBC (Bld) [#/Vol] 7.11 10*3/uL Normal 3.70-11.00 [facility] Comment on above: Order Comment: Speci men Type: BLOOD SPECIMENOrdering Facility: [facility] Address: [address] [place] [address] Performed By: #### 5 8410-2 ####[facility] LABIA [id number] [place] [address] [place] CONSULT PROGon 03-03-2024 CONSULT PROG Normal [facility] Comprehensive metabolic 2000 panelon 03-03-2024 Albumin [Mass/Vol] 3.6 g/dL Low 3.9-4.9 [facility] Comment on above: Order Comment: Speci men Type: BLOOD SPECIMENOrdering Facility: [facility] Address: [address] [place] [address] Performed By: #### 2 4323-8 ####[facility] LABIA [id number] [place] [address] [place] ALP [Catalytic activity/Vol] 112 U/L Normal 38-113 [facility] Comment on above: Order Comment: Speci men Type: BLOOD SPECIMENOrdering Facility: [facility] Address: [address] [place] [address] Performed By: #### 2 4323-8 ####[facility] LABIA [id number] [place] [id number] [place] ALT [Catalytic activity/Vol] 11 U/L Normal 10-54 [facility] Comment on above: Order Comment: Speci men Type: BLOOD SPECIMENOrdering Facility: [facility] Address: [address] [place] [address] Performed By: #### 2 4323-8 ####[facility] LABIA [id number] [place] [address] [place] Anion gap [Moles/Vol] 10 mmol/L Normal 8-15 [facility] Comment on above: Order Comment: Speci men Type: BLOOD SPECIMENOrdering Facility: [facility] Address: [address] [place] [address] Performed By: #### 2 4323-8 ####[facility] LABCLIA [id number] [place] [address] [place] AST [Catalytic activity/Vol] 19 U/L Normal 14-40 [facility] Comment on above: Order Comment: Speci men Type: BLOOD SPECIMENOrdering Facility: [facility] Address: [address] [place] [address] Performed By: #### 2 4323-8 ####[facility] LABCLIA [id number] [place] [address] [place] Bilirubin [Mass/Vol] 0.4 mg/dL Normal 0.2-1.3 [facility] Comment on above: Order Comment: Speci men Type: BLOOD SPECIMENOrdering Facility: [facility] Address: [address] [place] [address] Performed By: #### 2 4323-8 ####[facility] LABCLIA [id number] [place] [address] [place] Calcium [Mass/Vol] 8.9 mg/dL Normal 8.5-10.2 [facility] Comment on above: Order Comment: Speci men Type: BLOOD SPECIMENOrdering Facility: [facility] Address: [address] [place] [address] Performed By: #### 2 4323-8 ####[facility] LABCLIA [id number] [place] [address] [place] Chloride [Moles/Vol] 105 mmol/L Normal 98-107 [facility] Comment on above: Order Comment: Speci men Type: BLOOD SPECIMENOrdering Facility: [facility] Address: [address] [place] [address] Performed By: #### 2 4323-8 ####[facility] LABCLIA [id number] [place] [address] [place] CO2 [Moles/Vol] 23 mmol/L Normal 22-30 [facility] Comment on above: Order Comment: Speci men Type: BLOOD SPECIMENOrdering Facility: [facility] Address: [address] [place] [address] Performed By: #### 2 4323-8 ####[facility] LABCLIA [id number] [place] [address] [place] Creatinine [Mass/Vol] 1.47 mg/dL High 0.73-1.22 [facility] Comment on above: Order Comment: Speci men Type: BLOOD SPECIMENOrdering Facility: [facility] Address: [address] [place] [address] Performed By: #### 2 4323-8 ####[facility] LABIA [id number] [place] [address] [place] Creatinine and Glomerular filtration rate.predicted panel (S/P/Bld) 47 mL/min/1.73m??? Low >=60 [facility] Comment on above: Order Comment: Speci men Type: BLOOD SPECIMENOrdering Facility: [facility] Address: [address] [place] [address] Result Comment: Bren mated Glomerular Filtration Rate (eGFR) is calculated using the 2020 CKD-EPI creatinine equation. This equation utilizes serum creatinine, sex, and age as parameters. The creatinine assay has traceable calibration to isotope dilution-mass spectrometry. Refer to KDIGO guidelines for clinical interpretation. In patients with unstable renal function, e.g. those with acute kidney injury, the eGFR may not accurately reflect actual GFR. Performed By: #### 2 4323-8 ####[facility] LABCLIA [id number] [place] [address] [place] Glucose [Mass/Vol] 105 mg/dL High 74-99 [facility] Comment on above: Order Comment: Speci men Type: BLOOD SPECIMENOrdering Facility: [facility] Address: [address] [place] [address] Result Comment: The [place] Diabetes [employer] (ADA) provides guidance for cutoff values for fasting glucose and random glucose. The ADA defines fasting as no caloric intake for at least 8 hours. Fasting plasma glucose results between 100 to 125 mg/dL indicate increased risk for diabetes (prediabetes).Fasting plasma glucose results greater than or equal to 126 mg/dL meet the criteria for diagnosis of diabetes. In the absence of unequivocal hyperglycemia, results should be confirmed by repeat testing. In a patient with classic symptoms of hyperglycemia or hyperglycemic crisis, random plasma glucose results greater than or equal to 200 mg/dL meet the criteria for diagnosis of diabetes.Reference: Standards of Medical Care in Diabetes 2016, [place] [employer]. Diabetes Care. 2016.39(Suppl 1). Performed By: #### 2 4323-8 ####[facility] LABCLIA [id number] [place] [address] [place] Potassium [Moles/Vol] 4.8 mmol/L Normal 3.7-5.1 [facility] Comment on above: Order Comment: Speci men Type: BLOOD SPECIMENOrdering Facility: [facility] Address: [address] [place] [address] Performed By: #### 2 4323-8 ####[facility] LABCLIA [id number] [place] [address] [place] Protein [Mass/Vol] 6.1 g/dL Low 6.3-8.0 [facility] Comment on above: Order Comment: Speci men Type: BLOOD SPECIMENOrdering Facility: [facility] Address: [address] [place] [address] Performed By: #### 2 4323-8 ####[facility] LABCLIA [id number] [place] [address] [place] Sodium [Moles/Vol] 138 mmol/L Normal 136-144 [facility] Comment on above: Order Comment: Speci men Type: BLOOD SPECIMENOrdering Facility: [facility] Address: [address] [place] [address] Performed By: #### 2 4323-8 ####[facility] LABCLIA [id number] [place] [address] [place] Urea nitrogen [Mass/Vol] 24 mg/dL Normal 9-24 [facility] Comment on above: Order Comment: Speci men Type: BLOOD SPECIMENOrdering Facility: [facility] [facility] Address: [address] [place] [address] Performed By: #### 2 4323-8 ####[facility] LABCL[facility] [id number] [place] [address] [place] NURSING PROGon 03-03-2024 NURSING PROG Normal [facility] CASE MANAGEMon 03-02-2024 CASE MANAGEM Normal [facility] CBC panel Auto (Bld)on 03-02 Erythrocyte distribution width (RBC) [Ratio] 13.6 % Normal 11.5-15.0 [facility] Comment on above: Order Comment: Speci men Type: BLOOD SPECIMENOrdering Facility: [facility] Address: [address] [place] [address] Performed By: #### 5 8410-2 ####[facility]CL[facility] [id number] [place] [address] [place] Hematocrit (Bld) [Volume fraction] 32.8 % Low 39.0-51.0 [facility] Comment on above: Order Comment: Speci men Type: BLOOD SPECIMENOrdering Facility: [facility] Address: [address] [place] [address] Performed By: #### 5 8410-2 ####[facility]CL[facility] [id number] [place] [address] [place] Hemoglobin (Bld) [Mass/Vol] 10.7 g/dL Low 13.0-17.0 [facility] Comment on above: Order Comment: Speci men Type: BLOOD SPECIMENOrdering Facility: [facility] Address: [address] [place] [address] Performed By: #### 5 8410-2 ####[facility] [id number] [place] [address] [place] MCH (RBC) [Entitic mass] 31.4 pg Normal 26.0-34.0 [facility] Comment on above: Order Comment: Speci men Type: BLOOD SPECIMENOrdering Facility: [facility] Address: [address] [place] [address] Performed By: #### 5 8410-2 ####[facility] [id number] [place] [address] [place] MCHC (RBC) [Mass/Vol] 32.6 g/dL Normal 30.5-36.0 [facility] Comment on above: Order Comment: Speci men Type: BLOOD SPECIMENOrdering Facility: [facility] Address: [address] [place] [address] Performed By: #### 5 8410-2 ####[facility] [id number] [place] [address] [place] MCV (RBC) [Entitic vol] 96.2 fL Normal 80.0-100.0 [facility] Comment on above: Order Comment: Speci men Type: BLOOD SPECIMENOrdering Facility: [facility] Address: [address] [place] [address] Performed By: #### 5 8410-2 ####[facility] [id number] [place] [address] [place] Nucleated RBC (Bld) [#/Vol] 10*3/uL Normal <0.01 [facility] Comment on above: Order Comment: Speci men Type: BLOOD SPECIMENOrdering Facility: [facility] Address: [address] [place] [address] Performed By: #### 5 8410-2 ####[facility]CL[facility] [id number] [address] [address] [place] Platelet mean volume (Bld) [Entitic vol] 9.5 fL Normal 9.0-12.7 [facility] Comment on above: Order Comment: Speci men Type: BLOOD SPECIMENOrdering Facility: [facility] Address: [address] [place] [address] Performed By: #### 5 8410-2 ####[facility]CL[facility] [id number] [place] [address] [place] Platelets (Bld) [#/Vol] 192 10*3/uL Normal 150-400 [facility] Comment on above: Order Comment: Speci men Type: BLOOD SPECIMENOrdering Facility: [facility] Address: [address] [place] [address] Performed By: #### 5 8410-2 ####[facility] [id number] [place] [address] [place] RBC (Bld) [#/Vol] 3.41 10*6/uL Low 4.20-6.00 [facility] Comment on above: Order Comment: Speci men Type: BLOOD SPECIMENOrdering Facility: [facility] Address: [address] [place] [address] Performed By: #### 5 8410-2 ####[facility] LABIA [id number] [place] [address] [place] WBC (Bld) [#/Vol] 7.22 10*3/uL Normal 3.70-11.00 [facility] Comment on above: Order Comment: Speci men Type: BLOOD SPECIMENOrdering Facility: [facility] Address: [address] [place] [address] Performed By: #### 5 8410-2 ####[facility] LABIA [id number] [id number] [address] [place] CONSULT PROGon 03-02-2024 CONSULT PROG Normal [facility] Comprehensive metabolic 2000 panelon 03-02-2024 Albumin [Mass/Vol] 3.4 g/dL Low 3.9-4.9 [facility] Comment on above: Order Comment: Speci men Type: BLOOD SPECIMENOrdering Facility: [facility] Address: [address] [place] [address] Performed By: #### 2 4323-8, 305-0, 7 ####[facility] [id number] [place] [address] [place] ALP [Catalytic activity/Vol] 103 U/L Normal 38-113 [facility] Comment on above: Order Comment: Speci men Type: BLOOD SPECIMENOrdering Facility: [facility] Address: [address] [place] [address] Performed By: #### 2 4323-8, 305-0, 7 ####[facility]CL[facility] [id number] [place] [address] [place] ALT [Catalytic activity/Vol] 11 U/L Normal 10-54 [facility] Comment on above: Order Comment: Speci men Type: BLOOD SPECIMENOrdering Facility: [facility] Address: [address] [place] [address] Performed By: #### 2 4323-8, 305-0, 7 ####[facility]CLIA [id number] [place] [id number] [place] Anion gap [Moles/Vol] 11 mmol/L Normal 8-15 [facility] Comment on above: Order Comment: Speci men Type: BLOOD SPECIMENOrdering Facility: [facility] Address: [address] [place] [address] Performed By: #### 2 4323-8, 3051-0, 3023-7 ####[facility]CL[facility] [id number] [place] [id number] [place] AST [Catalytic activity/Vol] 16 U/L Normal 14-40 [facility] Comment on above: Order Comment: Speci men Type: BLOOD SPECIMENOrdering Facility: [facility] Address: [address] [place] [address] Performed By: #### 2 4323-8, 305-0, 7 ####[facility]CL[facility] [id number] [place] [address] [place] Bilirubin [Mass/Vol] 0.4 mg/dL Normal 0.2-1.3 [facility] Comment on above: Order Comment: Speci men Type: BLOOD SPECIMENOrdering Facility: [facility] Address: [address] [place] [address] Performed By: #### 2 4323-8, 0, 3023-11 ####[facility]CL[facility] [id number] [place] [address] [place] Calcium [Mass/Vol] 8.9 mg/dL Normal 8.5-10.2 [facility] Comment on above: Order Comment: Speci men Type: BLOOD SPECIMENOrdering Facility: [facility] Address: [address] [place] [address] Performed By: #### 2 4323-8, 3050, 3023-11 ####[facility] [id number] [place] [address] [place] Chloride [Moles/Vol] 104 mmol/L Normal 98-107 [facility] Comment on above: Order Comment: Speci men Type: BLOOD SPECIMENOrdering Facility: [facility] Address: [address] [place] [address] Performed By: #### 2 4323-8, 305-0, 7 ####[facility]CL[facility] [id number] [place] [address] [place] CO2 [Moles/Vol] 23 mmol/L Normal 22-30 [facility] Comment on above: Order Comment: Speci men Type: BLOOD SPECIMENOrdering Facility: [facility] Address: [address] [place] [address] Performed By: #### 2 4323-8, 3051-0, 3023-11 ####[facility]CL[facility] [id number] [place] [address] [place] Creatinine [Mass/Vol] 1.54 mg/dL High 0.73-1.22 [facility] Comment on above: Order Comment: Speci men Type: BLOOD SPECIMENOrdering Facility: [facility] Address: [address] [place] [address] Performed By: #### 2 4323-8, 305-0, 3023-11 ####[facility]CL[facility] [id number] [place] [address] [place] Creatinine and Glomerular filtration rate.predicted panel (S/P/Bld) 45 mL/min/1.73m??? Low >=60 [facility] Comment on above: Order Comment: Olenai ciera Type: BLOOD SPECIMENOrdering Facility: [facility] Address: [address] [place] [address] Result Comment: Bren mated Glomerular Filtration Rate (eGFR) is calculated using the 2020 CKD-EPI creatinine equation. This equation utilizes serum creatinine, sex, and age as parameters. The creatinine assay has traceable calibration to isotope dilution-mass spectrometry. Refer to KDIGO guidelines for clinical interpretation. In patients with unstable renal function, e.g. those with acute kidney injury, the eGFR may not accurately reflect actual GFR. Performed By: #### 2 4323-8, 305-0, 3023-11 ####[facility]CL[facility] [id number] [place] [address] [place] Glucose [Mass/Vol] 103 mg/dL High 74-99 [facility] Comment on above: Order Comment: Speci men Type: BLOOD SPECIMENOrdering Facility: [facility] Address: [address] [place] [phone] Result Comment: The [place] [employer] (ADA) provides guidance for cutoff values for fasting glucose and random glucose. The ADA defines fasting as no caloric intake for at least 8 hours. Fasting plasma glucose results between 100 to 125 mg/dL indicate increased risk for diabetes (prediabetes).Fasting plasma glucose results greater than or equal to 126 mg/dL meet the criteria for diagnosis of diabetes. In the absence of unequivocal hyperglycemia, results should be confirmed by repeat testing. In a patient with classic symptoms of hyperglycemia or hyperglycemic crisis, random plasma glucose results greater than or equal to 200 mg/dL meet the criteria for diagnosis of diabetes.Reference: Standards of Medical Care in Diabetes 2016, [place] [employer]. Diabetes Care. 2016.39(Suppl 1). Performed By: #### 2 4323-8, 0, 3023-11 ####[facility]CL[facility] [id number] [place] [address] [place] Potassium [Moles/Vol] 4.4 mmol/L Normal 3.7-5.1 [facility] Comment on above: Order Comment: Speci men Type: BLOOD SPECIMENOrdering Facility: [facility] Address: [address] [place] [address] Performed By: #### 2 4323-8, 0, 3023-11 ####[facility]CL[facility] [id number] [place] [address] [place] Protein [Mass/Vol] 5.7 g/dL Low 6.3-8.0 [facility] Comment on above: Order Comment: Speci men Type: BLOOD SPECIMENOrdering Facility: [facility] Address: [address] [phone] Performed By: #### 2 4323-8, 0, 3023-11 ####[facility]CL[facility] [id number] [facility] [address] [place] Sodium [Moles/Vol] 138 mmol/L Normal 136-144 [facility] Comment on above: Order Comment: Speci men Type: BLOOD SPECIMENOrdering Facility: [facility] Address: [address] [place] [address] Performed By: #### 2 4323-8, 0, 3023-11 ####[facility]CL[facility] [id number] [place] [id number] [place] Urea nitrogen [Mass/Vol] 29 mg/dL High 9-24 [facility] Comment on above: Order Comment: Speci men Type: BLOOD SPECIMENOrdering Facility: [facility] Address: [address] [place] [address] Performed By: #### 2 4323-8, 0, 3023-11 ####[facility]CL[facility] [id number] [place] [id number] [place] T3Free SerPl-mCncon 20 24 Free T3 [Mass/Vol] 2.6 pg/mL Normal 2.3-4.1 [facility] Comment on above: Order Comment: Speci men Type: BLOOD SPECIMENOrdering Facility: [facility] Address: [address] [place] [address] Performed By: #### 2 4323-8, 0, 3023-11 ####[facility]CL[facility] [id number] [place] [address] [place] T4 Free SerPl-mCncon 2 024 Free T4 [Mass/Vol] 1.0 ng/dL Normal 0.9-1.7 [facility] Comment on above: Order Comment: Speci men Type: BLOOD SPECIMENOrdering Facility: [facility] Address: [address] [place] [address] Performed By: #### 2 4323-8, 0, 3023-11 ####[facility]CL[facility] [id number] [place] [id number] [place] CBC panel Auto (Bld)on 03-01 Erythrocyte distribution width (RBC) [Ratio] 13.5 % Normal 11.5-15.0 [facility] Comment on above: Order Comment: Speci men Type: BLOOD SPECIMENOrdering Facility: [facility] Address: [address] [place] [address] Performed By: #### 5 8410-2 ####[facility]CL[facility] [id number] [place] [address] [place] Hematocrit (Bld) [Volume fraction] 34.6 % Low 39.0-51.0 [facility] Comment on above: Order Comment: Speci men Type: BLOOD SPECIMENOrdering Facility: [facility] Address: [address] [place] [address] Performed By: #### 5 8410-2 ####[facility] LABIA [id number] [place] [address] [place] Hemoglobin (Bld) [Mass/Vol] 11.6 g/dL Low 13.0-17.0 [facility] Comment on above: Order Comment: Speci men Type: BLOOD SPECIMENOrdering Facility: [facility] Address: [address] [place] [address] Performed By: #### 5 8410-2 ####[facility] [id number] [place] [address] [place] MCH (RBC) [Entitic mass] 32.4 pg Normal 26.0-34.0 [facility] Comment on above: Order Comment: Speci men Type: BLOOD SPECIMENOrdering Facility: [facility] Address: [address] [place] [address] Performed By: #### 5 8410-2 ####[facility] [id number] [place] [address] [place] MCHC (RBC) [Mass/Vol] 33.5 g/dL Normal 30.5-36.0 [facility] Comment on above: Order Comment: Speci men Type: BLOOD SPECIMENOrdering Facility: [facility] Address: [address] [place] [address] Performed By: #### 5 8410-2 ####[facility]CL[facility] [id number] [place] [address] [place] MCV (RBC) [Entitic vol] 96.6 fL Normal 80.0-100.0 [facility] Comment on above: Order Comment: Speci men Type: BLOOD SPECIMENOrdering Facility: [facility] Address: [address] [place] [address] Performed By: #### 5 8410-2 ####[facility] [id number] [place] [address] [place] Nucleated RBC (Bld) [#/Vol] 10*3/uL Normal <0.01 [facility] Comment on above: Order Comment: Speci men Type: BLOOD SPECIMENOrdering Facility: [facility] Address: [address] [place] [address] Performed By: #### 5 8410-2 ####[facility] LABIA [id number] [place] [address] [place] Platelet mean volume (Bld) [Entitic vol] 9.7 fL Normal 9.0-12.7 [facility] Comment on above: Order Comment: Speci men Type: BLOOD SPECIMENOrdering Facility: [facility] Address: [address] [place] [address] Performed By: #### 5 8410-2 ####[facility]CL[facility] [id number] [place] [address] [place] Platelets (Bld) [#/Vol] 194 10*3/uL Normal 150-400 [facility] Comment on above: Order Comment: Speci men Type: BLOOD SPECIMENOrdering Facility: [facility] Address: [address] [place] [address] Performed By: #### 5 8410-2 ####[facility]CL[facility] [id number] [place] [address] [place] RBC (Bld) [#/Vol] 3.58 10*6/uL Low 4.20-6.00 [facility] Comment on above: Order Comment: Speci men Type: BLOOD SPECIMENOrdering Facility: [facility] Address: [address] [place] [address] Performed By: #### 5 8410-2 ####[facility]CL[facility] [id number] [place] [address] [place] WBC (Bld) [#/Vol] 6.58 10*3/uL Normal 3.70-11.00 [facility] Comment on above: Order Comment: Speci men Type: BLOOD SPECIMENOrdering Facility: [facility] Address: [address] [place] [address] Performed By: #### 5 8410-2 ####[facility]CL[facility] [id number] [place] [address] [place] [facility] OCCULT BLD EXAM-DIAGon 1 [facility] OCCULT BLD EXAM-DIAG OCCULT BLOOD DIAGNOSTIC: Unable to assay. Specimen improperly collected/handled. Test cancelled and credited. [facility] Original Ordering Provider: REJI PRETTY [facility] CONSULT PROGon 03-01-2024 CONSULT PROG Normal [facility] Comprehensive metabolic 2000 panelon 03-01-2024 Albumin [Mass/Vol] 3.6 g/dL Low 3.9-4.9 [facility] Comment on above: Order Comment: Speci men Type: BLOOD SPECIMENOrdering Facility: [facility] Address: [address] [place] [address] Performed By: #### 2 4323-8 ####[facility]CL[facility] [id number] [place] [address] [place] ALP [Catalytic activity/Vol] 106 U/L Normal 38-113 [facility] Comment on above: Order Comment: Speci men Type: BLOOD SPECIMENOrdering Facility: [facility] Address: [address] [phone] Performed By: #### 2 4323-8 ####[facility]CL[facility] [id number] [place] [address] [place] ALT [Catalytic activity/Vol] 9 U/L Low 10-54 [facility] Comment on above: Order Comment: Speci men Type: BLOOD SPECIMENOrdering Facility: [facility] Address: [address] [place] [address] Performed By: #### 2 4323-8 ####[facility]CL[facility] [id number] [place] [address] [place] Anion gap [Moles/Vol] 11 mmol/L Normal 8-15 [facility] Comment on above: Order Comment: Speci men Type: BLOOD SPECIMENOrdering Facility: [facility] Address: [address] [place] [address] Performed By: #### 2 4323-8 ####[facility]CL[facility] [id number] [place] [address] [place] AST [Catalytic activity/Vol] 18 U/L Normal 14-40 [facility] Comment on above: Order Comment: Speci men Type: BLOOD SPECIMENOrdering Facility: [facility] Address: [address] [place] [address] Performed By: #### 2 4323-8 ####[facility] [id number] [place] [address] [place] Bilirubin [Mass/Vol] 0.4 mg/dL Normal 0.2-1.3 [facility] Comment on above: Order Comment: Speci men Type: BLOOD SPECIMENOrdering Facility: [facility] Address: [address] [place] [address] Performed By: #### 2 4323-8 ####[facility]CL[facility] [id number] [place] [address] [place] Calcium [Mass/Vol] 9.0 mg/dL Normal 8.5-10.2 [facility] Comment on above: Order Comment: Speci men Type: BLOOD SPECIMENOrdering Facility: [facility] Address: [address] [place] [address] Performed By: #### 2 4323-8 ####[facility]CL[facility] [id number] [place] [address] [place] Chloride [Moles/Vol] 104 mmol/L Normal 98-107 [facility] Comment on above: Order Comment: Speci men Type: BLOOD SPECIMENOrdering Facility: [facility] Address: [address] [place] [address] Performed By: #### 2 4323-8 ####[facility]CL[facility] [id number] [place] [address] [place] CO2 [Moles/Vol] 23 mmol/L Normal 22-30 [facility] Comment on above: Order Comment: Speci men Type: BLOOD SPECIMENOrdering Facility: [facility] Address: [address] [place] [address] Performed By: #### 2 4323-8 ####[facility] [id number] [place] [address] [place] Creatinine [Mass/Vol] 1.48 mg/dL High 0.73-1.22 [facility] Comment on above: Order Comment: Speci men Type: BLOOD SPECIMENOrdering Facility: [facility] Address: [address] [place] [address] Performed By: #### 2 4323-8 ####[facility] [id number] [place] [address] [place] Creatinine and Glomerular filtration rate.predicted panel (S/P/Bld) 47 mL/min/1.73m??? Low >=60 [facility] Comment on above: Order Comment: Speci men Type: BLOOD SPECIMENOrdering Facility: [facility] Address: [address] [place] [address] Result Comment: Bren mated Glomerular Filtration Rate (eGFR) is calculated using the 2020 CKD-EPI creatinine equation. This equation utilizes serum creatinine, sex, and age as parameters. The creatinine assay has traceable calibration to isotope dilution-mass spectrometry. Refer to KDIGO guidelines for clinical interpretation. In patients with unstable renal function, e.g. those with acute kidney injury, the eGFR may not accurately reflect actual GFR. Performed By: #### 2 4323-8 ####[facility] [id number] [place] [address] [place] Glucose [Mass/Vol] 94 mg/dL Normal 74-99 [facility] Comment on above: Order Comment: Nona vang Type: BLOOD SPECIMENOrdering Facility: [facility] Address: [address] [place] [address] Result Comment: The [place] [employer] (ADA) provides guidance for cutoff values for fasting glucose and random glucose. The ADA defines fasting as no caloric intake for at least 8 hours. Fasting plasma glucose results between 100 to 125 mg/dL indicate increased risk for diabetes (prediabetes).Fasting plasma glucose results greater than or equal to 126 mg/dL meet the criteria for diagnosis of diabetes. In the absence of unequivocal hyperglycemia, results should be confirmed by repeat testing. In a patient with classic symptoms of hyperglycemia or hyperglycemic crisis, random plasma glucose results greater than or equal to 200 mg/dL meet the criteria for diagnosis of diabetes.Reference: Standards of Medical Care in Diabetes 2016, [place] [employer]. Diabetes Care. 2016.39(Suppl 1). Performed By: #### 2 4323-8 ####[facility]IA [id number] [place] [id number] [place] Potassium [Moles/Vol] 4.4 mmol/L Normal 3.7-5.1 [facility] Comment on above: Order Comment: Nona vang Type: BLOOD SPECIMENOrdering Facility: [facility] Address: [address] [place] [address] Performed By: #### 2 4323-8 ####[facility]CL[facility] [id number] [place] [address] [place] Protein [Mass/Vol] 6.1 g/dL Low 6.3-8.0 [facility] Comment on above: Order Comment: Speci men Type: BLOOD SPECIMENOrdering Facility: [facility] Address: [address] [place] [address] Performed By: #### 2 4323-8 ####[facility] [id number] [place] [address] [place] Sodium [Moles/Vol] 138 mmol/L Normal 136-144 [facility] Comment on above: Order Comment: Speci men Type: BLOOD SPECIMENOrdering Facility: [facility] Address: [address] [place] [address] Performed By: #### 2 4323-8 ####[facility] [id number] [place] [address] [place] Urea nitrogen [Mass/Vol] 24 mg/dL Normal 9-24 [facility] Comment on above: Order Comment: Speci men Type: BLOOD SPECIMENOrdering Facility: [facility] Address: [address] [place] [address] Performed By: #### 2 4323-8 ####[facility] [id number] [place] [address] [place] THERAPY NTon 03-01-2024 THERAPY NT Normal [facility] aPTT PPPon 03-01-2024 aPTT Coag (PPP) [Time] 27.0 s Normal 23.0-32.4 [facility] Comment on above: Order Comment: Speci men Type: BLOOD SPECIMENOrdering Facility: [facility] Address: [address] [place] [address] Performed By: #### 1 4979-9 ####[facility] [id number] [address] [place] CBC panel Auto (Bld)on 02-28 Erythrocyte distribution width (RBC) [Ratio] 13.4 % Normal 11.5-15.0 [facility] Comment on above: Order Comment: Speci men Type: BLOOD SPECIMENOrdering Facility: [facility] Address: [address] [place] [address] Performed By: #### 5 8410-2 ####[facility] [id number] [place] [address] [place] Hematocrit (Bld) [Volume fraction] 33.9 % Low 39.0-51.0 [facility] Comment on above: Order Comment: Speci men Type: BLOOD SPECIMENOrdering Facility: [facility] Address: [address] [place] [address] Performed By: #### 5 8410-2 ####[facility] [id number] [address] [place] Hemoglobin (Bld) [Mass/Vol] 11.5 g/dL Low 13.0-17.0 [facility] Comment on above: Order Comment: Speci men Type: BLOOD SPECIMENOrdering Facility: [facility] Address: [address] [place] [address] Performed By: #### 5 8410-2 ####[facility] [id number] [place] [address] [place] MCH (RBC) [Entitic mass] 31.9 pg Normal 26.0-34.0 [facility] Comment on above: Order Comment: Speci men Type: BLOOD SPECIMENOrdering Facility: [facility] Address: [address] [place] [address] Performed By: #### 5 8410-2 ####[facility]CL[facility] [id number] [place] [address] [place] MCHC (RBC) [Mass/Vol] 33.9 g/dL Normal 30.5-36.0 [facility] Comment on above: Order Comment: Speci men Type: BLOOD SPECIMENOrdering Facility: [facility] Address: [address] [place] [address] Performed By: #### 5 8410-2 ####[facility] [id number] [address] [address] [place] MCV (RBC) [Entitic vol] 93.9 fL Normal 80.0-100.0 [facility] Comment on above: Order Comment: Speci men Type: BLOOD SPECIMENOrdering Facility: [facility] Address: [address] [place] [address] Performed By: #### 5 8410-2 ####[facility] [id number] [place] [address] [place] Nucleated RBC (Bld) [#/Vol] 10*3/uL Normal <0.01 [facility] Comment on above: Order Comment: Speci men Type: BLOOD SPECIMENOrdering Facility: [facility] Address: [address] [place] [address] Performed By: #### 5 8410-2 ####[facility] [id number] [place] [address] [place] Platelet mean volume (Bld) [Entitic vol] 9.3 fL Normal 9.0-12.7 [facility] Comment on above: Order Comment: Speci men Type: BLOOD SPECIMENOrdering Facility: [facility] Address: [address] [place] [address] Performed By: #### 5 8410-2 ####[facility] [id number] [place] [address] [place] Platelets (Bld) [#/Vol] 194 10*3/uL Normal 150-400 [facility] Comment on above: Order Comment: Speci men Type: BLOOD SPECIMENOrdering Facility: [facility] Address: [address] [place] [address] Performed By: #### 5 8410-2 ####[facility]CL[facility] [id number] [place] [address] [place] RBC (Bld) [#/Vol] 3.61 10*6/uL Low 4.20-6.00 [facility] Comment on above: Order Comment: Speci men Type: BLOOD SPECIMENOrdering Facility: [facility] Address: [address] [place] [address] Performed By: #### 5 8410-2 ####[facility] [id number] [place] [address] [place] WBC (Bld) [#/Vol] 6.80 10*3/uL Normal 3.70-11.00 [facility] Comment on above: Order Comment: Speci men Type: BLOOD SPECIMENOrdering Facility: [facility] Address: [address] [place] [address] Performed By: #### 5 8410-2 ####[facility] [id number] [place] [address] [place] Erythrocyte distribution width (RBC) [Ratio] 13.6 % Normal 11.5-15.0 [facility] Comment on above: Order Comment: Speci men Type: BLOOD SPECIMENOrdering Facility: [facility] Address: [address] [place] [address] Performed By: #### 5 8410-2 ####[facility] [id number] [place] [address] [place] Hematocrit (Bld) [Volume fraction] 33.4 % Low 39.0-51.0 [facility] Comment on above: Order Comment: Speci men Type: BLOOD SPECIMENOrdering Facility: [facility] Address: [address] [place] [address] Performed By: #### 5 8410-2 ####[facility] [id number] [place] [address] [place] Hemoglobin (Bld) [Mass/Vol] 11.0 g/dL Low 13.0-17.0 [facility] Comment on above: Order Comment: Speci men Type: BLOOD SPECIMENOrdering Facility: [facility] Address: [address] [place] [address] Performed By: #### 5 8410-2 ####[facility] [id number] [place] [address] [place] MCH (RBC) [Entitic mass] 31.6 pg Normal 26.0-34.0 [facility] Comment on above: Order Comment: Speci men Type: BLOOD SPECIMENOrdering Facility: [facility] Address: [address] [place] [address] Performed By: #### 5 8410-2 ####[facility] [id number] [place] [address] [place] MCHC (RBC) [Mass/Vol] 32.9 g/dL Normal 30.5-36.0 [facility] Comment on above: Order Comment: Speci men Type: BLOOD SPECIMENOrdering Facility: [facility] Address: [address] [place] [address] Performed By: #### 5 8410-2 ####[facility] [id number] [place] [address] [place] MCV (RBC) [Entitic vol] 96.0 fL Normal 80.0-100.0 [facility] Comment on above: Order Comment: Speci men Type: BLOOD SPECIMENOrdering Facility: [facility] Address: [address] [place] [address] Performed By: #### 5 8410-2 ####[facility] [id number] [place] [address] [place] Nucleated RBC (Bld) [#/Vol] 10*3/uL Normal <0.01 [facility] Comment on above: Order Comment: Speci men Type: BLOOD SPECIMENOrdering Facility: [facility] Address: [address] [place] [address] Performed By: #### 5 8410-2 ####[facility]CL[facility] [id number] [place] [address] [place] Platelet mean volume (Bld) [Entitic vol] 9.5 fL Normal 9.0-12.7 [facility] Comment on above: Order Comment: Speci men Type: BLOOD SPECIMENOrdering Facility: [facility] Address: [address] [place] [address] Performed By: #### 5 8410-2 ####[facility] [id number] [place] [address] [place] Platelets (Bld) [#/Vol] 183 10*3/uL Normal 150-400 [facility] Comment on above: Order Comment: Speci men Type: BLOOD SPECIMENOrdering Facility: [facility] Address: [address] [place] [address] Performed By: #### 5 8410-2 ####[facility] [id number] [place] [address] [place] RBC (Bld) [#/Vol] 3.48 10*6/uL Low 4.20-6.00 [facility] Comment on above: Order Comment: Speci men Type: BLOOD SPECIMENOrdering Facility: [facility] Address: [address] [place] [address] Performed By: #### 5 8410-2 ####[facility] LABCL[facility] [id number] [place] [address] [place] WBC (Bld) [#/Vol] 6.96 10*3/uL Normal 3.70-11.00 [facility] Comment on above: Order Comment: Speci men Type: BLOOD SPECIMENOrdering Facility: [facility] Address: [address] [place] [address] Performed By: #### 5 8410-2 ####[facility] LABCL[facility] [id number] [place] [address] [place] Comprehensive metabolic 2000 panelon 02-29-2024 Albumin [Mass/Vol] 3.5 g/dL Low 3.9-4.9 [facility] Comment on above: Order Comment: Speci men Type: BLOOD SPECIMENOrdering Facility: [facility] Address: [address] [place] [address] Performed By: #### 2 4323-8 ####[facility] LABCL[facility] [id number] [place] [address] [place] ALP [Catalytic activity/Vol] 105 U/L Normal 38-113 [facility] Comment on above: Order Comment: Speci men Type: BLOOD SPECIMENOrdering Facility: [facility] Address: [address] [place] [address] Performed By: #### 2 4323-8 ####[facility]CL[facility] [id number] [place] [address] [place] ALT [Catalytic activity/Vol] 12 U/L Normal 10-54 [facility] Comment on above: Order Comment: Speci men Type: BLOOD SPECIMENOrdering Facility: [facility] Address: [address] [place] [address] Performed By: #### 2 4323-8 ####[facility] LABCL[facility] [id number] [place] [address] [place] Anion gap [Moles/Vol] 11 mmol/L Normal 8-15 [facility] Comment on above: Order Comment: Speci men Type: BLOOD SPECIMENOrdering Facility: [facility] Address: [address] [place] [address] Performed By: #### 2 4323-8 ####[facility]CL[facility] [id number] [place] [address] [place] AST [Catalytic activity/Vol] 18 U/L Normal 14-40 [facility] Comment on above: Order Comment: Speci men Type: BLOOD SPECIMENOrdering Facility: [facility] Address: [address] [place] [address] Performed By: #### 2 4323-8 ####[facility]CL[facility] [id number] [place] [address] [place] Bilirubin [Mass/Vol] 0.4 mg/dL Normal 0.2-1.3 [facility] Comment on above: Order Comment: Speci men Type: BLOOD SPECIMENOrdering Facility: [facility] Address: [address] [place] [address] Performed By: #### 2 4323-8 ####[facility]CL[facility] [id number] [place] [address] [place] Calcium [Mass/Vol] 8.7 mg/dL Normal 8.5-10.2 [facility] Comment on above: Order Comment: Speci men Type: BLOOD SPECIMENOrdering Facility: [facility] Address: [address] [place] [address] Performed By: #### 2 4323-8 ####[facility]CL[facility] [id number] [place] [address] [place] Chloride [Moles/Vol] 104 mmol/L Normal 98-107 [facility] Comment on above: Order Comment: Speci men Type: BLOOD SPECIMENOrdering Facility: [facility] Address: [address] [place] [address] Performed By: #### 2 4323-8 ####[facility] [id number] [place] [address] [place] CO2 [Moles/Vol] 23 mmol/L Normal 22-30 [facility] Comment on above: Order Comment: Speci men Type: BLOOD SPECIMENOrdering Facility: [facility] Address: [address] [place] [address] Performed By: #### 2 4323-8 ####[facility]CL[facility] [id number] [place] [address] [place] Creatinine [Mass/Vol] 1.42 mg/dL High 0.73-1.22 [facility] Comment on above: Order Comment: Speci men Type: BLOOD SPECIMENOrdering Facility: [facility] Address: [address] [place] [address] Performed By: #### 2 4323-8 ####[facility]CL[facility] [id number] [place] [address] [place] Creatinine and Glomerular filtration rate.predicted panel (S/P/Bld) 49 mL/min/1.73m??? Low >=60 [facility] Comment on above: Order Comment: Speci men Type: BLOOD SPECIMENOrdering Facility: [facility] Address: [address] [place] [address] Result Comment: Bren mated Glomerular Filtration Rate (eGFR) is calculated using the 2020 CKD-EPI creatinine equation. This equation utilizes serum creatinine, sex, and age as parameters. The creatinine assay has traceable calibration to isotope dilution-mass spectrometry. Refer to KDIGO guidelines for clinical interpretation. In patients with unstable renal function, e.g. those with acute kidney injury, the eGFR may not accurately reflect actual GFR. Performed By: #### 2 4323-8 ####[facility] [id number] [place] [address] [place] Glucose [Mass/Vol] 95 mg/dL Normal 74-99 [facility] Comment on above: Order Comment: Speci men Type: BLOOD SPECIMENOrdering Facility: [facility] Address: [address] [place] [address] Result Comment: The [place] [employer] (ADA) provides guidance for cutoff values for fasting glucose and random glucose. The ADA defines fasting as no caloric intake for at least 8 hours. Fasting plasma glucose results between 100 to 125 mg/dL indicate increased risk for diabetes (prediabetes).Fasting plasma glucose results greater than or equal to 126 mg/dL meet the criteria for diagnosis of diabetes. In the absence of unequivocal hyperglycemia, results should be confirmed by repeat testing. In a patient with classic symptoms of hyperglycemia or hyperglycemic crisis, random plasma glucose results greater than or equal to 200 mg/dL meet the criteria for diagnosis of diabetes.Reference: Standards of Medical Care in Diabetes 2016, [place] [employer]. Diabetes Care. 2016.39(Suppl 1). Performed By: #### 2 4323-8 ####[facility] [id number] [place] [address] [place] Potassium [Moles/Vol] 4.4 mmol/L Normal 3.7-5.1 [facility] Comment on above: Order Comment: Speci men Type: BLOOD SPECIMENOrdering Facility: [facility] Address: [address] [place] [address] Performed By: #### 2 4323-8 ####[facility] [id number] [place] [address] [place] Protein [Mass/Vol] 5.9 g/dL Low 6.3-8.0 [facility] Comment on above: Order Comment: Speci men Type: BLOOD SPECIMENOrdering Facility: [facility] Address: [address] [place] [address] Performed By: #### 2 4323-8 ####[facility] [id number] [place] [address] [place] Sodium [Moles/Vol] 138 mmol/L Normal 136-144 [facility] Comment on above: Order Comment: Speci men Type: BLOOD SPECIMENOrdering Facility: [facility] Address: [address] [place] [address] Performed By: #### 2 4323-8 ####[facility]CL[facility] [id number] [place] [address] [place] Urea nitrogen [Mass/Vol] 22 mg/dL Normal 9-24 [facility] Comment on above: Order Comment: Speci men Type: BLOOD SPECIMENOrdering Facility: [facility] Address: [address] [place] [address] Performed By: #### 2 4323-8 ####[facility]CL[facility] [id number] [place] [address] [place] OCCULT BLD EXAM-DIAGon 02-28 OCCULT BLD EXAM-DIAG OCCULT BLOOD DIAGNOSTIC: Unable to assay. Specimen improperly collected/handled. Test cancelled and credited. Normal [facility] Comment on above: Performed By: #### O BDX ####[facility]CL[facility] [id number] [place] [address] [place] CBC panel Auto (Bld)on 02-27 Erythrocyte distribution width (RBC) [Ratio] 13.5 % Normal 11.5-15.0 [facility] Comment on above: Order Comment: Speci men Type: BLOOD SPECIMENOrdering Facility: [facility] Address: [address] [place] [address] Performed By: #### 5 8410-2 ####[facility]CL[facility] [id number] [place] [address] [place] Hematocrit (Bld) [Volume fraction] 34.2 % Low 39.0-51.0 [facility] Comment on above: Order Comment: Speci men Type: BLOOD SPECIMENOrdering Facility: [facility] Address: [address] [place] [address] Performed By: #### 5 8410-2 ####[facility]CL[facility] [id number] [place] [id number] [place] Hemoglobin (Bld) [Mass/Vol] 11.5 g/dL Low 13.0-17.0 [facility] Comment on above: Order Comment: Speci men Type: BLOOD SPECIMENOrdering Facility: [facility] Address: [address] [place] [address] Performed By: #### 5 8410-2 ####[facility]CL[facility] [id number] [place] [address] [place] MCH (RBC) [Entitic mass] 32.1 pg Normal 26.0-34.0 [facility] Comment on above: Order Comment: Speci men Type: BLOOD SPECIMENOrdering Facility: [facility] Address: [address] [place] [address] Performed By: #### 5 8410-2 ####[facility] [id number] [place] [address] [place] MCHC (RBC) [Mass/Vol] 33.6 g/dL Normal 30.5-36.0 [facility] Comment on above: Order Comment: Speci men Type: BLOOD SPECIMENOrdering Facility: [facility] Address: [address] [place] [address] Performed By: #### 5 8410-2 ####[facility] [id number] [place] [address] [place] MCV (RBC) [Entitic vol] 95.5 fL Normal 80.0-100.0 [facility] Comment on above: Order Comment: Speci men Type: BLOOD SPECIMENOrdering Facility: [facility] Address: [address] [place] [address] Performed By: #### 5 8410-2 ####[facility] [id number] [place] [address] [place] Nucleated RBC (Bld) [#/Vol] 10*3/uL Normal <0.01 [facility] Comment on above: Order Comment: Speci men Type: BLOOD SPECIMENOrdering Facility: [facility] Address: [address] [place] [address] Performed By: #### 5 8410-2 ####[facility] [id number] [place] [address] [place] Platelet mean volume (Bld) [Entitic vol] 9.7 fL Normal 9.0-12.7 [facility] Comment on above: Order Comment: Speci men Type: BLOOD SPECIMENOrdering Facility: [facility] Address: [address] [place] [address] Performed By: #### 5 8410-2 ####[facility]CL[facility] [id number] [place] [address] [place] Platelets (Bld) [#/Vol] 174 10*3/uL Normal 150-400 [facility] Comment on above: Order Comment: Speci men Type: BLOOD SPECIMENOrdering Facility: [facility] Address: [address] [place] [address] Performed By: #### 5 8410-2 ####[facility] [id number] [place] [address] [place] RBC (Bld) [#/Vol] 3.58 10*6/uL Low 4.20-6.00 [facility] Comment on above: Order Comment: Speci men Type: BLOOD SPECIMENOrdering Facility: [facility] Address: [address] [place] [address] Performed By: #### 5 8410-2 ####[facility]CL[facility] [id number] [place] [address] [place] WBC (Bld) [#/Vol] 6.96 10*3/uL Normal 3.70-11.00 [facility] Comment on above: Order Comment: Speci men Type: BLOOD SPECIMENOrdering Facility: [facility] Address: [address] [place] [address] Performed By: #### 5 8410-2 ####[facility] [id number] [place] [address] [place] CONSULT PROGon 02-28-2024 CONSULT PROG Normal [facility] Comprehensive metabolic 2000 panelon 02-28-2024 Albumin [Mass/Vol] 3.3 g/dL Low 3.9-4.9 [facility] Comment on above: Order Comment: Speci men Type: BLOOD SPECIMENOrdering Facility: [facility] Address: [address] [place] [id number] Performed By: #### 1 9123-9, 84493-7 ####[facility]CL[facility] [id number] [address] [address] [place] ALP [Catalytic activity/Vol] 103 U/L Normal 38-113 [facility] Comment on above: Order Comment: Speci men Type: BLOOD SPECIMENOrdering Facility: [facility] Address: [address] [place], [place] [address] Performed By: #### 1 9123-9, 92584-8 ####[facility] [id number] [place] [address] [place] ALT [Catalytic activity/Vol] 12 U/L Normal 10-54 [facility] Comment on above: Order Comment: Speci men Type: BLOOD SPECIMENOrdering Facility: [facility] Address: [address] [place] [address] Performed By: #### 1 9123-9, 92060-0 ####[facility] [id number] [place] [address] [place] Anion gap [Moles/Vol] 11 mmol/L Normal 8-15 [facility] Comment on above: Order Comment: Speci men Type: BLOOD SPECIMENOrdering Facility: [facility] Address: [address] [place] [id number] Performed By: #### 1 9123-9, 10970-8 ####[facility] [id number] [place] [id number] [place] AST [Catalytic activity/Vol] 17 U/L Normal 14-40 [facility] Comment on above: Order Comment: Speci men Type: BLOOD SPECIMENOrdering Facility: [facility] Address: [address] [place], [place] [address] Performed By: #### 1 9, ####[facility] [id number] [place] [address] [place] Bilirubin [Mass/Vol] 0.4 mg/dL Normal 0.2-1.3 [facility] Comment on above: Order Comment: Speci men Type: BLOOD SPECIMENOrdering Facility: [facility] Address: [address] [place] [address] Performed By: #### 1 9123-01, ####[facility] [id number] [place] [address] [place] Calcium [Mass/Vol] 8.8 mg/dL Normal 8.5-10.2 [facility] Comment on above: Order Comment: Speci men Type: BLOOD SPECIMENOrdering Facility: [facility] Address: [address] [place] [address] Performed By: #### 1 9123-01, ####[facility]CL[facility] [id number] [place] [address] [place] Chloride [Moles/Vol] 105 mmol/L Normal 98-107 [facility] Comment on above: Order Comment: Speci men Type: BLOOD SPECIMENOrdering Facility: [facility] Address: [address] [place] [address] Performed By: #### 1 9123-01, ####[facility] [id number] [place] [address] [place] CO2 [Moles/Vol] 24 mmol/L Normal 22-30 [facility] Comment on above: Order Comment: Speci men Type: BLOOD SPECIMENOrdering Facility: [facility] Address: [address] [place] [address] Performed By: #### 1 239, ####[facility]CL[facility] [id number] [place] [address] [place] Creatinine [Mass/Vol] 1.49 mg/dL High 0.73-1.22 [facility] Comment on above: Order Comment: Nona vang Type: BLOOD SPECIMENOrdering Facility: [facility] Address: [address] [place] [address] Performed By: #### 1 9123-9, 28163-6 ####[facility] [id number] [place] [address] [place] [facility] [place] Creatinine and Glomerular filtration rate.predicted panel (S/P/Bld) 47 mL/min/1.73m??? Low >=60 [facility] Comment on above: Order Comment: Nona vang Type: BLOOD SPECIMENOrdering Facility: [facility] Address: [address] [place] [address] Result Comment: Bren mated Glomerular Filtration Rate (eGFR) is calculated using the 2020 CKD-EPI creatinine equation. This equation utilizes serum creatinine, sex, and age as parameters. The creatinine assay has traceable calibration to isotope dilution-mass spectrometry. Refer to KDIGO guidelines for clinical interpretation. In patients with unstable renal function, e.g. those with acute kidney injury, the eGFR may not accurately reflect actual GFR. Performed By: #### 1 9123-9, ####[facility] [id number] [place] [address] [place] Glucose [Mass/Vol] 89 mg/dL Normal 74-99 [facility] Comment on above: Order Comment: Nona vang Type: BLOOD SPECIMENOrdering Facility: [facility] Address: [address] [place] [address] Result Comment: The [place] [employer] (ADA) provides guidance for cutoff values for fasting glucose and random glucose. The ADA defines fasting as no caloric intake for at least 8 hours. Fasting plasma glucose results between 100 to 125 mg/dL indicate increased risk for diabetes (prediabetes).Fasting plasma glucose results greater than or equal to 126 mg/dL meet the criteria for diagnosis of diabetes. In the absence of unequivocal hyperglycemia, results should be confirmed by repeat testing. In a patient with classic symptoms of hyperglycemia or hyperglycemic crisis, random plasma glucose results greater than or equal to 200 mg/dL meet the criteria for diagnosis of diabetes.Reference: Standards of Medical Care in Diabetes 2016, [place] [employer]. Diabetes Care. 2016.39(Suppl 1). Performed By: #### 1 23-9, ####[facility]CL[facility] [id number] [place] [address] [place] Potassium [Moles/Vol] 4.2 mmol/L Normal 3.7-5.1 [facility] Comment on above: Order Comment: Speci men Type: BLOOD SPECIMENOrdering Facility: [facility] Address: [address] [place] [address] Performed By: #### 1 9, ####[facility]CL[facility] [id number] [place] [address] [place] Protein [Mass/Vol] 5.8 g/dL Low 6.3-8.0 [facility] Comment on above: Order Comment: Speci men Type: BLOOD SPECIMENOrdering Facility: [facility] Address: [address] [place] [address] Performed By: #### 1 9123-01, ####[facility]CL[facility] [id number] [place] [address] [place] Sodium [Moles/Vol] 140 mmol/L Normal 136-144 [facility] Comment on above: Order Comment: Speci men Type: BLOOD SPECIMENOrdering Facility: [facility] Address: [address] [place], [place] [id number] Performed By: #### 1 9123-01, ####[facility]CL[facility] [id number] [address] [address] [place] Urea nitrogen [Mass/Vol] 23 mg/dL Normal 9-24 [facility] Comment on above: Order Comment: Speci men Type: BLOOD SPECIMENOrdering Facility: [facility] Address: [address] [place] [address] Performed By: #### 1 9123-9, 06443-3 ####[facility]CL[facility] [id number] [place] [address] [place] Magnesium SerPl-mCncon 02-27 Magnesium [Mass/Vol] 2.2 mg/dL Normal 1.7-2.3 [facility] Comment on above: Order Comment: Speci men Type: BLOOD SPECIMENOrdering Facility: [facility] Address: [address] [place] [address] Performed By: #### 1 9123-9, 74435-0 ####[facility] [id number] [place] [address] [place] THERAPY NTon 02-28-2024 THERAPY NT Normal [facility] CASE MGT INIT ASSESon 2023 CASE MGT INIT ASSES Normal [facility] CBC panel Auto (Bld)on 02-26 Erythrocyte distribution width (RBC) [Ratio] 13.7 % Normal 11.5-15.0 [facility] Comment on above: Order Comment: Speci men Type: BLOOD SPECIMENOrdering Facility: [facility] Address: [address] [place] [address] Performed By: #### 5 8410-2 ####[facility] [id number] [place] [address] [place] Hematocrit (Bld) [Volume fraction] 33.4 % Low 39.0-51.0 [facility] Comment on above: Order Comment: Speci men Type: BLOOD SPECIMENOrdering Facility: [facility] Address: [address] [place] [address] Performed By: #### 5 8410-2 ####[facility] [id number] [place] [address] [place] Hemoglobin (Bld) [Mass/Vol] 11.2 g/dL Low 13.0-17.0 [facility] Comment on above: Order Comment: Speci men Type: BLOOD SPECIMENOrdering Facility: [facility] Address: [address] [place] [address] Performed By: #### 5 8410-2 ####[facility] [id number] [place] [address] [place] MCH (RBC) [Entitic mass] 31.8 pg Normal 26.0-34.0 [facility] Comment on above: Order Comment: Speci men Type: BLOOD SPECIMENOrdering Facility: [facility] Address: [address] [place] [address] Performed By: #### 5 8410-2 ####[facility] [id number] [place] [address] [place] MCHC (RBC) [Mass/Vol] 33.5 g/dL Normal 30.5-36.0 [facility] Comment on above: Order Comment: Speci men Type: BLOOD SPECIMENOrdering Facility: [facility] Address: [address] [place] [address] Performed By: #### 5 8410-2 ####[facility] [id number] [place] [address] [place] MCV (RBC) [Entitic vol] 94.9 fL Normal 80.0-100.0 [facility] Comment on above: Order Comment: Speci men Type: BLOOD SPECIMENOrdering Facility: [facility] Address: [address] [place] [address] Performed By: #### 5 8410-2 ####[facility] [id number] [place] [address] [place] Nucleated RBC (Bld) [#/Vol] 10*3/uL Normal <0.01 [facility] Comment on above: Order Comment: Speci men Type: BLOOD SPECIMENOrdering Facility: [facility] Address: [address] [place] [address] Performed By: #### 5 8410-2 ####[facility] [id number] [place] [address] [place] Platelet mean volume (Bld) [Entitic vol] 9.3 fL Normal 9.0-12.7 [facility] Comment on above: Order Comment: Speci men Type: BLOOD SPECIMENOrdering Facility: [facility] Address: [address] [place] [address] Performed By: #### 5 8410-2 ####[facility] [id number] [place] [address] [place] Platelets (Bld) [#/Vol] 173 10*3/uL Normal 150-400 [facility] Comment on above: Order Comment: Speci men Type: BLOOD SPECIMENOrdering Facility: [facility] Address: [address] [place] [address] Performed By: #### 5 8410-2 ####[facility] [id number] [place] [address] [place] RBC (Bld) [#/Vol] 3.52 10*6/uL Low 4.20-6.00 [facility] Comment on above: Order Comment: Speci men Type: BLOOD SPECIMENOrdering Facility: [facility] Address: [address] [place] [address] Performed By: #### 5 8410-2 ####[facility] [id number] [place] [address] [place] WBC (Bld) [#/Vol] 7.88 10*3/uL Normal 3.70-11.00 [facility] Comment on above: Order Comment: Speci men Type: BLOOD SPECIMENOrdering Facility: [facility] Address: [address] [place] [address] Performed By: #### 5 8410-2 ####[facility] [id number] [address] [address] [place] CONSULTon 02-27-2024 CONSULT Normal [facility] Comprehensive metabolic 2000 panelon 02-27-2024 Albumin [Mass/Vol] 3.5 g/dL Low 3.9-4.9 [facility] Comment on above: Order Comment: Speci men Type: BLOOD SPECIMENOrdering Facility: [facility] Address: [address] [place] [address] Performed By: #### 1 9123-9, 58591-1 ####[facility] [id number] [place] [address] [place] ALP [Catalytic activity/Vol] 103 U/L Normal 38-113 [facility] Comment on above: Order Comment: Speci men Type: BLOOD SPECIMENOrdering Facility: [facility] Address: [address] [place] [address] Performed By: #### 1 9123-9, 10447-5 ####[facility] [id number] [place] [address] [place] ALT [Catalytic activity/Vol] 11 U/L Normal 10-54 [facility] Comment on above: Order Comment: Speci men Type: BLOOD SPECIMENOrdering Facility: [facility] Address: [address] [place] [address] Performed By: #### 1 9123-9, 78865-5 ####[facility] [id number] [place] [id number] [place] Anion gap [Moles/Vol] 9 mmol/L Normal 8-15 [facility] Comment on above: Order Comment: Speci men Type: BLOOD SPECIMENOrdering Facility: [facility] Address: [address] [place] [address] Performed By: #### 1 9123-9, 71742-4 ####[facility] [id number] [place] [id number] [place] AST [Catalytic activity/Vol] 16 U/L Normal 14-40 [facility] Comment on above: Order Comment: Speci men Type: BLOOD SPECIMENOrdering Facility: [facility] Address: [address] [place] [address] Performed By: #### 1 9123-9, 38843-1 ####[facility] [id number] [place] [address] [place] Bilirubin [Mass/Vol] 0.3 mg/dL Normal 0.2-1.3 [facility] Comment on above: Order Comment: Speci men Type: BLOOD SPECIMENOrdering Facility: [facility] Address: [address] [place] [address] Performed By: #### 1 9123-9, ####[facility] [id number] [place] [address] [place] Calcium [Mass/Vol] 8.8 mg/dL Normal 8.5-10.2 [facility] Comment on above: Order Comment: Speci men Type: BLOOD SPECIMENOrdering Facility: [facility] Address: [address] [place] [address] Performed By: #### 1 9123-9, ####[facility] [id number] [place] [address] [place] Chloride [Moles/Vol] 103 mmol/L Normal 98-107 [facility] Comment on above: Order Comment: Speci men Type: BLOOD SPECIMENOrdering Facility: [facility] Address: [address] [place] [address] Performed By: #### 1 9123-9, ####[facility] [id number] [place] [address] [place] CO2 [Moles/Vol] 26 mmol/L Normal 22-30 [facility] Comment on above: Order Comment: Speci men Type: BLOOD SPECIMENOrdering Facility: [facility] Address: [address] [place] [address] Performed By: #### 1 9123-9, 13607-4 ####[facility] [id number] [address] [address] [place] Creatinine [Mass/Vol] 1.59 mg/dL High 0.73-1.22 [facility] Comment on above: Order Comment: Speci men Type: BLOOD SPECIMENOrdering Facility: [facility] Address: [address] [place] [address] Performed By: #### 1 9123-9, ####[facility] [id number] [place] [address] [place] Creatinine and Glomerular filtration rate.predicted panel (S/P/Bld) 43 mL/min/1.73m??? Low >=60 [facility] Comment on above: Order Comment: Speci men Type: BLOOD SPECIMENOrdering Facility: [facility] Address: [address] [place] [address] Result Comment: Bren mated Glomerular Filtration Rate (eGFR) is calculated using the 2020 CKD-EPI creatinine equation. This equation utilizes serum creatinine, sex, and age as parameters. The creatinine assay has traceable calibration to isotope dilution-mass spectrometry. Refer to KDIGO guidelines for clinical interpretation. In patients with unstable renal function, e.g. those with acute kidney injury, the eGFR may not accurately reflect actual GFR. Performed By: #### 1 9123-9, 93621-9 ####[facility] [id number] [place] [id number] [place] Glucose [Mass/Vol] 117 mg/dL High 74-99 [facility] Comment on above: Order Comment: Speci men Type: BLOOD SPECIMENOrdering Facility: [facility] Address: [address] [place] [address] Result Comment: The [place] Diabetes Association (ADA) provides guidance for cutoff values for fasting glucose and random glucose. The ADA defines fasting as no caloric intake for at least 8 hours. Fasting plasma glucose results between 100 to 125 mg/dL indicate increased risk for diabetes (prediabetes).Fasting plasma glucose results greater than or equal to 126 mg/dL meet the criteria for diagnosis of diabetes. In the absence of unequivocal hyperglycemia, results should be confirmed by repeat testing. In a patient with classic symptoms of hyperglycemia or hyperglycemic crisis, random plasma glucose results greater than or equal to 200 mg/dL meet the criteria for diagnosis of diabetes.Reference: Standards of Medical Care in Diabetes 2016, [place] [employer]. Diabetes Care. 2016.39(Suppl 1). Performed By: #### 1 9123-9, ####[facility] [id number] [place] [address] [place] Potassium [Moles/Vol] 4.7 mmol/L Normal 3.7-5.1 [facility] Comment on above: Order Comment: Speci men Type: BLOOD SPECIMENOrdering Facility: [facility] Address: [address] [place] [address] Performed By: #### 1 91239, ####[facility] [id number] [place] [address] [place] Protein [Mass/Vol] 5.9 g/dL Low 6.3-8.0 [facility] Comment on above: Order Comment: Speci men Type: BLOOD SPECIMENOrdering Facility: [facility] Address: [address] [place] [address] Performed By: #### 1 239, ####[facility] [id number] [place] [id number] [place] Sodium [Moles/Vol] 138 mmol/L Normal 136-144 [facility] Comment on above: Order Comment: Speci men Type: BLOOD SPECIMENOrdering Facility: [facility] Address: [address] [place] [address] Performed By: #### 1 239, ####[facility] [id number] [address] [address] [place] Urea nitrogen [Mass/Vol] 24 mg/dL Normal 9-24 [facility] Comment on above: Order Comment: Speci men Type: BLOOD SPECIMENOrdering Facility: [facility] Address: [address] [place] [address] Performed By: #### 1 9123-9, 24552-6 ####[facility] [id number] [place] [id number] [place] ECHO LIMITEDon 02-27-2024 ECHO LIMITED Normal [facility] Magnesium SerPl-mCncon 02-26 Magnesium [Mass/Vol] 2.1 mg/dL Normal 1.7-2.3 [facility] Comment on above: Order Comment: Speci men Type: BLOOD SPECIMENOrdering Facility: [facility] Address: [address] [place] [address] Performed By: #### 1 9123-9, 96111-3 ####[facility] [id number] [place] [address] [place] NUTRITIONon 02-27-2024 NUTRITION Normal [facility] TYPE + SCREENon 02-27-2024 ABO A Normal [facility] Comment on above: Order Comment: Speci men Type: BLOOD SPECIMENOrdering Facility: [facility] Address: [address] [place] [address] Performed By: #### T SCR ####[facility]LO[facility] BANKCLIA [id number] [place] [id number] [place] Rh Nom (Bld) Positive Normal [facility] Comment on above: Order Comment: Speci men Type: BLOOD SPECIMENOrdering Facility: [facility] Address: [address] [place] [address] Performed By: #### T SCR ####[facility] BLOOD BANKCLIA [id number] [place] [address] [place] TYPE AND SCREEN EXPIRATION 03/01/2024 23:59 Normal [facility] Comment on above: Order Comment: Speci men Type: BLOOD SPECIMENOrdering Facility: [facility] Address: [address] [place] [address] Performed By: #### T SCR ####[facility] BLOOD BANKCLIA [id number] [place] [address] [place] CBC W Auto Differential pane l (Bld)on 02-26-2024 Basophils (Bld) [#/Vol] 0.04 10*3/uL Normal <0.11 [facility] Comment on above: Order Comment: Speci men Type: BLOOD SPECIMENOrdering Facility: [facility] Address: [address] [place] [address] Performed By: #### 5 7021-8 ####[facility] [id number] [place] [address] [place] Basophils/100 WBC (Bld) 0.4 % Normal [facility] Comment on above: Order Comment: Speci men Type: BLOOD SPECIMENOrdering Facility: [facility] Address: [address] [place] [address] Performed By: #### 5 7021-8 ####[facility] [id number] [place] [address] [place] Differential cell count method Nom (Bld) Auto Normal [facility] Comment on above: Order Comment: Speci men Type: BLOOD SPECIMENOrdering Facility: [facility] Address: [address] [place] [address] Performed By: #### 5 7021-8 ####[facility] [id number] [place] [address] [place] Eosinophils (Bld) [#/Vol] 0.16 10*3/uL Normal <0.46 [facility] Comment on above: Order Comment: Speci men Type: BLOOD SPECIMENOrdering Facility: [facility] Address: [address] [place] [address] Performed By: #### 5 7021-8 ####[facility] [id number] [place] [address] [place] Eosinophils/100 WBC (Bld) 1.7 % Normal [facility] Comment on above: Order Comment: Speci men Type: BLOOD SPECIMENOrdering Facility: [facility] Address: [address] [place] [address] Performed By: #### 5 7021-8 ####[facility] [id number] [place] [address] [place] Erythrocyte distribution width (RBC) [Ratio] 13.4 % Normal 11.5-15.0 [facility] Comment on above: Order Comment: Speci men Type: BLOOD SPECIMENOrdering Facility: [facility] Address: [address] [place] [address] Performed By: #### 5 7021-8 ####[facility] [id number] [place] [address] [place] Hematocrit (Bld) [Volume fraction] 33.8 % Low 39.0-51.0 [facility] Comment on above: Order Comment: Speci men Type: BLOOD SPECIMENOrdering Facility: [facility] Address: [address] [place] [address] Performed By: #### 5 7021-8 ####[facility] [id number] [place] [address] [place] Hemoglobin (Bld) [Mass/Vol] 11.3 g/dL Low 13.0-17.0 [facility] Comment on above: Order Comment: Speci men Type: BLOOD SPECIMENOrdering Facility: [facility] Address: [address] [place] [address] Performed By: #### 5 7021-8 ####[facility]CL[facility] [id number] [place] [address] [place] Immature granulocytes (Bld) [#/Vol] 0.04 10*3/uL Normal <0.10 [facility] Comment on above: Order Comment: Speci men Type: BLOOD SPECIMENOrdering Facility: [facility] Address: [address] [place] [address] Performed By: #### 5 7021-8 ####[facility] [id number] [place] [address] [place] Immature granulocytes/100 WBC (Bld) 0.4 % Normal [facility] Comment on above: Order Comment: Speci men Type: BLOOD SPECIMENOrdering Facility: [facility] Address: [address] [place] [address] Performed By: #### 5 7021-8 ####[facility]CL[facility] [id number] [place] [address] [place] Lymphocytes (Bld) [#/Vol] 1.52 10*3/uL Normal 1.00-4.00 [facility] Comment on above: Order Comment: Speci men Type: BLOOD SPECIMENOrdering Facility: [facility] Address: [address] [place] [address] Performed By: #### 5 7021-8 ####[facility] [id number] [place] [address] [place] Lymphocytes/100 WBC (Bld) 15.9 % Normal [facility] Comment on above: Order Comment: Speci men Type: BLOOD SPECIMENOrdering Facility: [facility] Address: [address] [place] [address] Performed By: #### 5 7021-8 ####[facility] [id number] [place] [address] [place] MCH (RBC) [Entitic mass] 31.7 pg Normal 26.0-34.0 [facility] Comment on above: Order Comment: Speci men Type: BLOOD SPECIMENOrdering Facility: [facility] Address: [address] [place] [address] Performed By: #### 5 7021-8 ####[facility] [id number] [place] [address] [place] MCHC (RBC) [Mass/Vol] 33.4 g/dL Normal 30.5-36.0 [facility] Comment on above: Order Comment: Speci men Type: BLOOD SPECIMENOrdering Facility: [facility] Address: [address] [place] [address] Performed By: #### 5 7021-8 ####[facility] [id number] [place] [address] [place] MCV (RBC) [Entitic vol] 94.7 fL Normal 80.0-100.0 [facility] Comment on above: Order Comment: Speci men Type: BLOOD SPECIMENOrdering Facility: [facility] Address: [address] [place] [address] Performed By: #### 5 7021-8 ####[facility] [id number] [place] [address] [place] Monocytes (Bld) [#/Vol] 0.79 10*3/uL Normal <0.87 [facility] Comment on above: Order Comment: Speci men Type: BLOOD SPECIMENOrdering Facility: [facility] Address: [address] [place] [address] Performed By: #### 5 7021-8 ####[facility] [id number] [place] [address] [place] Monocytes/100 WBC (Bld) 8.3 % Normal [facility] Comment on above: Order Comment: Speci men Type: BLOOD SPECIMENOrdering Facility: [facility] Address: [address] [place] [address] Performed By: #### 5 7021-8 ####[facility] [id number] [place] [address] [place] Neutrophils (Bld) [#/Vol] 6.99 10*3/uL Normal 1.45-7.50 [facility] Comment on above: Order Comment: Speci men Type: BLOOD SPECIMENOrdering Facility: [facility] Address: [address] [place] [address] Performed By: #### 5 7021-8 ####[facility] [id number] [place] [address] [place] Neutrophils/100 WBC (Bld) 73.3 % Normal [facility] Comment on above: Order Comment: Speci men Type: BLOOD SPECIMENOrdering Facility: [facility] Address: [address] [place] [address] Performed By: #### 5 7021-8 ####[facility] [id number] [place] [address] [place] Nucleated RBC (Bld) [#/Vol] 10*3/uL Normal <0.01 [facility] Comment on above: Order Comment: Speci men Type: BLOOD SPECIMENOrdering Facility: [facility] Address: [address] [place] [address] Performed By: #### 5 7021-8 ####[facility] [id number] [place] [address] [place] Nucleated RBC/100 WBC (Bld) [Ratio] 0.0 /100 WBC Normal [facility] Comment on above: Order Comment: Speci men Type: BLOOD SPECIMENOrdering Facility: [facility] Address: [address] [place] [address] Performed By: #### 5 7021-8 ####[facility] [id number] [place] [address] [place] Platelet mean volume (Bld) [Entitic vol] 9.4 fL Normal 9.0-12.7 [facility] Comment on above: Order Comment: Speci men Type: BLOOD SPECIMENOrdering Facility: [facility] Address: [address] [place] [address] Performed By: #### 5 7021-8 ####[facility] [id number] [place] [address] [place] Platelets (Bld) [#/Vol] 193 10*3/uL Normal 150-400 [facility] Comment on above: Order Comment: Speci men Type: BLOOD SPECIMENOrdering Facility: [facility] Address: [address] [place] [address] Performed By: #### 5 7021-8 ####[facility] [id number] [place] [address] [place] RBC (Bld) [#/Vol] 3.57 10*6/uL Low 4.20-6.00 [facility] Comment on above: Order Comment: Speci men Type: BLOOD SPECIMENOrdering Facility: [facility] Address: [address] [place] [address] Performed By: #### 5 7021-8 ####[facility] [id number] [place] [address] [place] WBC (Bld) [#/Vol] 9.54 10*3/uL Normal 3.70-11.00 [facility] Comment on above: Order Comment: Speci men Type: BLOOD SPECIMENOrdering Facility: [facility] Address: [address] [place] [address] Performed By: #### 5 7021-8 ####[facility] [id number] [place] [address] [place] CBC panel Auto (Bld)on 02-25 Erythrocyte distribution width (RBC) [Ratio] 13.6 % Normal 11.5-15.0 [facility] Comment on above: Order Comment: Speci men Type: BLOOD SPECIMENOrdering Facility: [facility] Address: [address] [place] [address] Performed By: #### 5 8410-2 ####[facility] [id number] [place] [address] [place] Hematocrit (Bld) [Volume fraction] 30.8 % Low 39.0-51.0 [facility] Comment on above: Order Comment: Speci men Type: BLOOD SPECIMENOrdering Facility: [facility] Address: [address] [place] [address] Performed By: #### 5 8410-2 ####[facility] [id number] [place] [address] [place] Hemoglobin (Bld) [Mass/Vol] 10.0 g/dL Low 13.0-17.0 [facility] Comment on above: Order Comment: Speci men Type: BLOOD SPECIMENOrdering Facility: [facility] Address: [address] [place] [address] Performed By: #### 5 8410-2 ####[facility] [id number] [place] [address] [place] MCH (RBC) [Entitic mass] 31.0 pg Normal 26.0-34.0 [facility] Comment on above: Order Comment: Speci men Type: BLOOD SPECIMENOrdering Facility: [facility] Address: [address] [place] [address] Performed By: #### 5 8410-2 ####[facility] [id number] [place] [address] [place] MCHC (RBC) [Mass/Vol] 32.5 g/dL Normal 30.5-36.0 [facility] Comment on above: Order Comment: Speci men Type: BLOOD SPECIMENOrdering Facility: [facility] Address: [address] [place] [address] Performed By: #### 5 8410-2 ####[facility] [id number] [place] [address] [place] MCV (RBC) [Entitic vol] 95.4 fL Normal 80.0-100.0 [facility] Comment on above: Order Comment: Speci men Type: BLOOD SPECIMENOrdering Facility: [facility] Address: [address] [place] [address] Performed By: #### 5 8410-2 ####[facility] [id number] [place] [address] [place] Nucleated RBC (Bld) [#/Vol] 10*3/uL Normal <0.01 [facility] Comment on above: Order Comment: Speci men Type: BLOOD SPECIMENOrdering Facility: [facility] Address: [address] [place] [address] Performed By: #### 5 8410-2 ####[facility] [id number] [place] [address] [place] Platelet mean volume (Bld) [Entitic vol] 9.3 fL Normal 9.0-12.7 [facility] Comment on above: Order Comment: Speci men Type: BLOOD SPECIMENOrdering Facility: [facility] Address: [address] [place] [address] Performed By: #### 5 8410-2 ####[facility] [id number] [place] [address] [place] Platelets (Bld) [#/Vol] 168 10*3/uL Normal 150-400 [facility] Comment on above: Order Comment: Speci men Type: BLOOD SPECIMENOrdering Facility: [facility] Address: [address] [place] [address] Performed By: #### 5 8410-2 ####[facility] [id number] [place] [address] [place] RBC (Bld) [#/Vol] 3.23 10*6/uL Low 4.20-6.00 [facility] Comment on above: Order Comment: Speci men Type: BLOOD SPECIMENOrdering Facility: [facility] Address: [address] [place] [address] Performed By: #### 5 8410-2 ####[facility] [id number] [place] [address] [place] WBC (Bld) [#/Vol] 8.32 10*3/uL Normal 3.70-11.00 [facility] Comment on above: Order Comment: Speci men Type: BLOOD SPECIMENOrdering Facility: [facility] Address: [address] [place] [address] Performed By: #### 5 8410-2 ####[facility] [id number] [place] [address] [place] CNOVon 02-26-2024 CNOV Normal [facility] Comprehensive metabolic 2000 panelon 02-26-2024 Albumin [Mass/Vol] 3.4 g/dL Low 3.9-4.9 [facility] Comment on above: Order Comment: Speci men Type: BLOOD SPECIMENOrdering Facility: [facility] Address: [address] [place] [address] Performed By: #### 2 4323-8, 82209-4, 02242-0, 2276-4, 68878-8, [id number], 3016-3 ####[facility] [id number] [place] [address] [place] ALP [Catalytic activity/Vol] 100 U/L Normal 38-113 [facility] Comment on above: Order Comment: Speci men Type: BLOOD SPECIMENOrdering Facility: [facility] Address: [address] [place] [address] Performed By: #### 2 4323-8, 25877-1, 25373-4, 2276-4, 89147-0, [id number], 3016-3 ####[facility] [id number] [address] [address] [place] ALT [Catalytic activity/Vol] 12 U/L Normal 10-54 [facility] Comment on above: Order Comment: Speci men Type: BLOOD SPECIMENOrdering Facility: [facility] Address: [address] [place] [address] Performed By: #### 2 4323-8, 67456-7, 84771-2, 2276-4, 81714-9, [id number], 3016-3 ####[facility] [id number] [place] [address] [place] Anion gap [Moles/Vol] 13 mmol/L Normal 8-15 [facility] Comment on above: Order Comment: Speci men Type: BLOOD SPECIMENOrdering Facility: [facility] Address: [address] [place] [address] Performed By: #### 2 4323-8, 88734-6, 43858-5, 6-4, 13925-8, [id number], 3016-3 ####[facility] [id number] [place] [address] [place] AST [Catalytic activity/Vol] 16 U/L Normal 14-40 [facility] Comment on above: Order Comment: Speci men Type: BLOOD SPECIMENOrdering Facility: [facility] Address: [address] [place] [address] Performed By: #### 2 4323-8, 11801-2, 75743-5, 6-4, 32355-0, [id number], 3016-3 ####[facility] [id number] [place] [id number] [place] Bilirubin [Mass/Vol] 0.3 mg/dL Normal 0.2-1.3 [facility] Comment on above: Order Comment: Speci men Type: BLOOD SPECIMENOrdering Facility: [facility] Address: [address] [place] [address] Performed By: #### 2 4323-8, 22341-4, 98443-2, 6-4, 28869-6, [id number], 3016-3 ####[facility] [id number] [address] [address] [place] Calcium [Mass/Vol] 9.1 mg/dL Normal 8.5-10.2 [facility] Comment on above: Order Comment: Speci men Type: BLOOD SPECIMENOrdering Facility: [facility] Address: [address] [place], [place] [address] Performed By: #### 2 4323-8, 33918-2, 31838-4, 6-4, 64361-4, [id number], 3016-3 ####[facility] [id number] [address] [address] [place] Chloride [Moles/Vol] 103 mmol/L Normal 98-107 [facility] Comment on above: Order Comment: Speci men Type: BLOOD SPECIMENOrdering Facility: [facility] Address: [address] [place], [place] [address] Performed By: #### 2 4323-8, 22035-3, 40735-8, 6-4, 48420-6, [id number], 3016-3 ####[facility] [id number] [address] [address] [place] CO2 [Moles/Vol] 23 mmol/L Normal 22-30 [facility] Comment on above: Order Comment: Speci men Type: BLOOD SPECIMENOrdering Facility: [facility] Address: [address] [place] [address] Performed By: #### 2 4323-8, 82924-3, 19821-3, 6-4, 56527-8, [id number], 3016-3 ####[facility] [id number] [address] [address] [place] Creatinine [Mass/Vol] 1.79 mg/dL High 0.73-1.22 [facility] Comment on above: Order Comment: Nona vang Type: BLOOD SPECIMENOrdering Facility: [facility] Address: [address] [place] [address] Performed By: #### 2 4323-8, 36451-4, 73865-9, 2276-4, 20417-1, [id number], 3016-3 ####[facility] [id number] [place] [address] [place] Creatinine and Glomerular filtration rate.predicted panel (S/P/Bld) 37 mL/min/1.73m??? Low >=60 [facility] Comment on above: Order Comment: Nona vang Type: BLOOD SPECIMENOrdering Facility: [facility] Address: [address] [place] [address] Result Comment: Bren mated Glomerular Filtration Rate (eGFR) is calculated using the 2020 CKD-EPI creatinine equation. This equation utilizes serum creatinine, sex, and age as parameters. The creatinine assay has traceable calibration to isotope dilution-mass spectrometry. Refer to KDIGO guidelines for clinical interpretation. In patients with unstable renal function, e.g. those with acute kidney injury, the eGFR may not accurately reflect actual GFR. Performed By: #### 2 4323-8, 72911-4, 56017-0, 2276-4, 61976-4, VVS0553, 3016-3 ####[facility] [id number] [place] [id number] [place] Glucose [Mass/Vol] 177 mg/dL High 74-99 [facility] Comment on above: Order Comment: Nona vang Type: BLOOD SPECIMENOrdering Facility: [facility] Address: [address] [place] [address] Result Comment: The [place] [employer] (ADA) provides guidance for cutoff values for fasting glucose and random glucose. The ADA defines fasting as no caloric intake for at least 8 hours. Fasting plasma glucose results between 100 to 125 mg/dL indicate increased risk for diabetes (prediabetes).Fasting plasma glucose results greater than or equal to 126 mg/dL meet the criteria for diagnosis of diabetes. In the absence of unequivocal hyperglycemia, results should be confirmed by repeat testing. In a patient with classic symptoms of hyperglycemia or hyperglycemic crisis, random plasma glucose results greater than or equal to 200 mg/dL meet the criteria for diagnosis of diabetes.Reference: Standards of Medical Care in Diabetes 2016, [place] [employer]. Diabetes Care. 2016.39(Suppl 1). Performed By: #### 2 4323-8, 43848-3, 07169-7, 2276-4, 99310-0, SAS1678, 3016-3 ####[facility] [id number] [address] [address] [place] Potassium [Moles/Vol] 4.4 mmol/L Normal 3.7-5.1 [facility] Comment on above: Order Comment: Speci men Type: BLOOD SPECIMENOrdering Facility: [facility] Address: [address] [place] [address] Performed By: #### 2 4323-8, 47545-7, 81494-7, 2276-4, 51919-6, [id number], 3016-3 ####[facility] [id number] [place] [id number] [place] Protein [Mass/Vol] 5.7 g/dL Low 6.3-8.0 [facility] Comment on above: Order Comment: Speci men Type: BLOOD SPECIMENOrdering Facility: [facility] Address: [address] [place] [id number] Performed By: #### 2 4323-8, 19945-9, 69916-8, 2276-4, 24949-0, [id number], 3016-3 ####[facility] [id number] [address] [address] [place] Sodium [Moles/Vol] 139 mmol/L Normal 136-144 [facility] Comment on above: Order Comment: Speci men Type: BLOOD SPECIMENOrdering Facility: [facility] Address: [address] [place] [address] Performed By: #### 2 4323-8, 26464-5, 14657-6, 2276-4, 65230-5, [id number], 3016-3 ####[facility] [id number] [address] [address] [place] Urea nitrogen [Mass/Vol] 26 mg/dL High 9-24 [facility] Comment on above: Order Comment: Speci men Type: BLOOD SPECIMENOrdering Facility: [facility] Address: [address] [place], [place] [address] Performed By: #### 2 4323-8, 40071-7, 76547-6, 6-4, 33805-0, [id number], 3016-3 ####[facility] [id number] [address] [address] [place] [id number] 02-26-2024 ECG01 Normal [facility] ED NOTEon 02-26-2024 ED NOTE Normal [facility] ED NOTE HNO ID: [id number] Author: THEODORE GILL LPN Service: Emergency Medicine Author Type: LICENSED NURSE Type: ED Notes Filed: 02/26/2024 11:48 Note Text: Report given to JSOE Romo. Normal [facility] ED NOTE Normal [facility] ED NOTE HNO ID: [id number] Author: THEODORE GILL LPN Service: Emergency Medicine Author Type: LICENSED NURSE Type: ED Notes Filed: 02/26/2024 10:38 Note Text: SQUAD UPON ARRIVAL GAVE 325 MG OF ASPIRIN AND 1 TABLET OF NITROGLYCERIN Normal [facility] ED NOTE Normal [facility] ED PROV NOTEon 02-26-2024 ED PROV NOTE Normal [facility] ED PROV NOTE Normal [facility] Ferritin SerPl-mCncon 2023 Ferritin [Mass/Vol] 52.5 ng/mL Normal 30.3-565.7 [facility] Comment on above: Order Comment: Speci men Type: BLOOD SPECIMENOrdering Facility: [facility] Address: [address] [place] [address] Performed By: #### 2 4323-8, 85662-7, 29058-6, 6-4, 27612-0, [id number], 3016-3 ####[facility] [id number] [address] [address] [place] HIGH SENSITIVITY TROPONIN T (INITIAL)on 02-26-2024 Troponin T.cardiac High sensitivity method [Mass/Vol] 27 ng/L High <12 [facility] Comment on above: Order Comment: Speci men Type: BLOOD SPECIMENOrdering Facility: [facility] Address: [address] [place] [address] Performed By: #### 2 4323-8, 53840-3, 09387-3, 6-4, 91969-6, [id number], 3016-3 ####[facility] [id number] [place] [address] [place] HIGH SENSITIVITY TROPONIN T (SECOND)on 02-26-2024 Troponin T.cardiac High sensitivity method [Mass/Vol] 24 ng/L High <12 [facility] Comment on above: Order Comment: Speci men Type: BLOOD SPECIMENOrdering Facility: [facility] Address: [address] [place] [address] Performed By: #### L [id number] ####[facility] [id number] [place] [address] [place] HIGH SENSITIVITY TROPONIN T (THIRD) 3 HRS AFTER INITIALon 02-26-2024 Troponin T.cardiac High sensitivity method [Mass/Vol] 24 ng/L High <12 [facility] Comment on above: Order Comment: Speci men Type: BLOOD SPECIMENOrdering Facility: [facility] Address: [address] [place] [address] Performed By: #### L [id number] ####[facility] [id number] [place] [id number] [place] HISTORY PHYSICALon 10-09-[address] [facility] Iron and Iron binding capaci ty panelon 02-26-2024 Iron [Mass/Vol] 58 ug/dL Normal 41-186 [facility] Comment on above: Order Comment: Speci men Type: BLOOD SPECIMENOrdering Facility: [facility] Address: [address] [place] [address] Performed By: #### 2 4323-8, 27393-5, 76192-3, 2276-4, 59070-1, HSI4512, 3016-3 ####[facility] [id number] [place] [address] [place] Iron binding capacity [Mass/Vol] 272 ug/dL Normal 232-386 [facility] Comment on above: Order Comment: Speci men Type: BLOOD SPECIMENOrdering Facility: [facility] Address: [address] [place] [address] Performed By: #### 2 4323-8, 26862-6, 29876-0, 6-4, 30605-2, SOB7554, 3016-3 ####[facility] [id number] [place] [id number] [place] Iron/TIBC [Molar ratio] 21.3 % Normal 15.0-57.0 [facility] Comment on above: Order Comment: Speci men Type: BLOOD SPECIMENOrdering Facility: [facility] Address: [address] [place] [address] Performed By: #### 2 4323-8, 76099-7, 10076-3, 2276-4, 11908-3, [id number], 3016-3 ####[facility] [id number] [place] [id number] [place] Magnesium SerPl-mCncon 02-25 Magnesium [Mass/Vol] 2.0 mg/dL Normal 1.7-2.3 [facility] Comment on above: Order Comment: Speci men Type: BLOOD SPECIMENOrdering Facility: [facility] Address: [address] [place] [address] Performed By: #### 2 4323-8, 20950-1, 85467-8, 6-4, 55858-8, [id number], 3016-3 ####[facility] [id number] [place] [address] [place] NT-proBNP SerPl-mCncon 02-25 Natriuretic peptide.B prohormone N-Terminal [Mass/Vol] 105 pg/mL Normal <450 [facility] Comment on above: Order Comment: Speci men Type: BLOOD SPECIMENOrdering Facility: [facility] Address: [address] [place] [address] Performed By: #### 2 4323-8, 93630-0, 06390-3, 6-4, 67612-0, [id number], 3016-3 ####[facility] [id number] [place] [address] [place] NURSING PROGon 02-26-2024 NURSING PROG Normal [facility] TSH SerPl-aCncon 02-26-2024 TSH Qn 6.190 m[IU]/L High 0.270-4.200 [facility] Comment on above: Order Comment: Speci men Type: BLOOD SPECIMENOrdering Facility: [facility] Address: [address] [place] [address] Performed By: #### 2 4323-8, 79859-1, 53444-3, 6-4, 90802-7, [id number], 3016-3 ####[facility] [id number] [place] [id number] [place] Urinalysis complete panel (U )on 02-26-2024 Bacteria LM.HPF (Urine sed) [#/Area] Negative Normal Negative [facility] Comment on above: Order Comment: Speci men Type: URINE SPECIMENOrdering Facility: [facility] Address: [address] [place] [address] Performed By: #### 2 4356-8 ####[facility] [id number] [place] [address] [place] Bilirubin Ql (U) Negative Normal Negative [facility] Comment on above: Order Comment: Speci men Type: URINE SPECIMENOrdering Facility: [facility] Address: [address] [place] [address] Performed By: #### 2 4356-8 ####[facility] [id number] [place] [address] [place] CALCIUM OXALATE CRYSTALS (UA) Few Abnormal None Seen [facility] Comment on above: Order Comment: Speci men Type: URINE SPECIMENOrdering Facility: [facility] Address: [address] [place] [address] Performed By: #### 2 4356-8 ####[facility] [id number] [place] [address] [place] Clarity (Unsp spec) Clear Normal Clear [facility] Comment on above: Order Comment: Speci men Type: URINE SPECIMENOrdering Facility: [facility] Address: [address] [place] [address] Performed By: #### 2 4356-8 ####[facility] [id number] [place] [address] [place] Color (U) Yellow Normal Yellow [facility] Comment on above: Order Comment: Speci men Type: URINE SPECIMENOrdering Facility: [facility] Address: [address] [place] [address] Performed By: #### 2 4356-8 ####[facility] [id number] [place] [address] [place] Epithelial cells LM.HPF (Urine sed) [#/Area] None Seen Normal [facility] Comment on above: Order Comment: Speci men Type: URINE SPECIMENOrdering Facility: [facility] Address: [address] [place] [address] Performed By: #### 2 4356-8 ####[facility] [id number] [place] [address] [place] Glucose Test strip (U) [Mass/Vol] Negative Normal Negative [facility] Comment on above: Order Comment: Speci men Type: URINE SPECIMENOrdering Facility: [facility] Address: [address] [place] [address] Performed By: #### 2 4356-8 ####[facility] [id number] [place] [address] [place] Hemoglobin Ql (U) Negative Normal Negative [facility] Comment on above: Order Comment: Speci men Type: URINE SPECIMENOrdering Facility: [facility] Address: [address] [place] [address] Performed By: #### 2 4356-8 ####[facility] [id number] [place] [address] [place] Hyaline casts (Urine sed) [#/Area] /[LPF] Abnormal 0 /LPF [facility] Comment on above: Order Comment: Speci men Type: URINE SPECIMENOrdering Facility: [facility] Address: [address] [place] [address] Performed By: #### 2 4356-8 ####[facility] [id number] [place] [address] [place] Ketones Ql (U) Trace Abnormal Negative [facility] Comment on above: Order Comment: Speci men Type: URINE SPECIMENOrdering Facility: [facility] Address: [address] [place] [address] Performed By: #### 2 4356-8 ####[facility] [id number] [place] [address] [place] Leukocyte esterase Test strip Ql (U) Trace Abnormal Negative [facility] Comment on above: Order Comment: Speci men Type: URINE SPECIMENOrdering Facility: [facility] Address: [address] [place] [address] Performed By: #### 2 4356-8 ####[facility] [id number] [place] [address] [place] Nitrite Ql (U) Negative Normal Negative [facility] Comment on above: Order Comment: Speci men Type: URINE SPECIMENOrdering Facility: [facility] Address: [address] [place] [address] Performed By: #### 2 4356-8 ####[facility] [id number] [place] [address] [place] pH (U) 5.0 [pH] Normal <8.5 [facility] Comment on above: Order Comment: Speci men Type: URINE SPECIMENOrdering Facility: [facility] Address: [address] [place] [address] Performed By: #### 2 4356-8 ####[facility] [id number] [place] [address] [place] Protein (U) [Mass/Vol] Negative Normal Negative [facility] Comment on above: Order Comment: Speci men Type: URINE SPECIMENOrdering Facility: [facility] Address: [address] [place] [address] Performed By: #### 2 4356-8 ####[facility] [id number] [place] [address] [place] RBC LM.HPF (Urine sed) [#/Area] 0-2 /HPF Normal 0-2 /HPF [facility] Comment on above: Order Comment: Speci men Type: URINE SPECIMENOrdering Facility: [facility] Address: [address] [place] [address] Performed By: #### 2 4356-8 ####[facility]CL[facility] [id number] [place] [address] [place] Specific gravity (U) [Rel density] 1.020 Normal 1.005-1.030 [facility] Comment on above: Order Comment: Speci men Type: URINE SPECIMENOrdering Facility: [facility] Address: [address] [place] [address] Performed By: #### 2 4356-8 ####[facility] [id number] [place] [address] [place] Urobilinogen Ql (U) 0.2 EU/dL Normal 0.2-1.0 EU/dL [facility] Comment on above: Order Comment: Speci men Type: URINE SPECIMENOrdering Facility: [facility] Address: [address] [place] [address] Performed By: #### 2 4356-8 ####[facility] [id number] [place] [address] [place] WBC LM.HPF (Urine sed) [#/Area] 0-5 /HPF Normal 0-5 /HPF [facility] Comment on above: Order Comment: Speci men Type: URINE SPECIMENOrdering Facility: [facility] Address: [address] [place] [address] Performed By: #### 2 4356-8 ####[facility]IA [id number] [place] [address] [place] XR CHEST 1V FRONTAL PORTon 1 XR CHEST 1V FRONTAL PORT Normal [facility] CNPNon 11-22-2023 CNPN Normal [facility] CNOVon 09-03-2023 CNOV Normal [facility] ICD REMOTE CHECKon AV Delay Adaptive Paced Minimum (ms) 170 ms [facility] AV Delay Adaptive Sensed Minimum (ms) 120 ms [facility] AV Delay Paced (ms) 90 ms [facility] AV Delay Sensed (ms) 90 ms [facility] Battery Voltage 2.98 V [facility] Johan LV Pacing Amplitude (volts) 2.0 V [facility] Johan LV Pacing Polarity BI [facility] Johan LV Pacing Pulse Width (ms) 0.5 ms [facility] Joahn RA Pacing Amplitude (volts) 2.0 V [facility] Johan RA Pacing Polarity BI [facility] Johan RA Pacing Pulse Width (ms) 0.5 ms [facility] Johan RA Sensing Amplitude (mvolts) 0.5 mV [facility] Johan RA Sensing Polarity BI [facility] Johan RV Pacing Amplitude (volts) 1.5 V [facility] Johan RV Pacing Polarity BI [facility] Johan RV Pacing Pulse Width (ms) 0.5 ms [facility] Johan RV Sensing Amplitude (mvolts) 0.5 mV [facility] Johan RV Sensing Polarity BI [facility] Detection Configuration (Vent) 1 - Zone [facility] ICD FastVT DetectionStatus DISABLED [facility] ICD-AMS EPISODES 170 {beats}/min [facility] ICD-ATP Episodes (Vent) 0 [facility] ICD-Device Mfg Other [facility] ICD-LEADIMPEDANCEATRIA L 340 ohm [facility] ICD-Percent Pacing (Atrial) 83.0 % [facility] ICD-Shocks Aborted (Vent) 0 [facility] [id number] 0 [facility] ICD-SHOCKSABORTED 0 [facility] ICD-SHOCKSDELIVEREDVEN TRICULAR 0 [facility] ICD-VVDELAY_MS 45 ms [facility] Implant Date 10/18/2021 [facility] Lead Impedance (LV) 800 ohm [facility] Lead Impedance (RV) 460 ohm [facility] Lead Impedance High Voltage 63 ohm [facility] Lead1 Mfg STJ [facility] Lead2 Mfg STJ [facility] Lead3 Mfg STJ [facility] Location LV [facility] Location RA [facility] Location RV [facility] Lower Rate (bpm) 70 {beats}/min [facility] Max Sensor Rate (bpm) 110 {beats}/min [facility] MDT_PROG_TACHY_ZONE_DE TECTIONS_STATUS ENABLED [facility] Model [id number] [place] HF [facility] Model 1458Q Quartet [facility] Model 2088TC Tendril STS [facility] Model 7122Q Durata SJ4 [facility] Pacing Mode DDDR [facility] Serial Number [id number] [facility] Serial Number [id number] [facility] Serial Number [id number] [facility] Serial Number [id number] [facility] Test Charge Energy 40 J [facility] Test Charge Time 9.0 s [facility] Therapy Status (Vent) Enabled [facility] Thresh LV Capture Amplitude (volts) 0.75 V [facility] Thresh LV Capture Duration (ms) 0.5 ms [facility] Thresh RA Capture Amplitude (volts) 0.375 V [facility] Thresh RA Capture Duration (ms) 0.5 ms [facility] Thresh RA Sensing Amplitude (mvolts) 1.6 mV [facility] Thresh RV Capture Amplitude (VOLTS) 0.5 V [facility] Thresh RV Capture Duration (MS) 0.5 ms [facility] Thresh RV Sensing Amplitude (MVOLTS) 12.0 mV [facility] Tracking Rate (bpm) 130 {beats}/min [facility] VF Zone Detection Interval 300 ms [facility] VF Zone Therapy Configuration 0 ATP(s) + 6 Shock(s) [facility] No Panel Informationon 08-01 BLANK _ [facility] Implant Date 03/23/2014 [facility] CNOVon 07-31-2023 CNOV Normal [facility] CNPNon 07-22-2023 CNPN Normal [facility] ICD CLINIC CHECKon 3 AV Delay Adaptive Paced Minimum (ms) 170 ms [facility] AV Delay Adaptive Rate Maximum (bpm) 130 {beats}/min [facility] AV Delay Adaptive Rate Minimum (bpm) 90 {beats}/min [facility] AV Delay Adaptive Sensed Minimum (ms) 120 ms [facility] AV Delay Adaptive Status Medium [facility] AV Delay Paced (ms) 90 ms [facility] AV Delay Sensed (ms) 90 ms [facility] Johan LV Pacing Amplitude (volts) 2.0 V [facility] Johan LV Pacing Polarity BI [facility] Johan LV Pacing Pulse Width (ms) 0.5 ms [facility] Johan RA Pacing Amplitude (volts) 2.0 V [facility] Johan RA Pacing Polarity BI [facility] Johan RA Pacing Pulse Width (ms) 0.5 ms [facility] Johan RA Sensing Amplitude (mvolts) 0.5 mV [facility] Johan RA Sensing Blanking Period (ms) 110 ms [facility] Johan RA Sensing Polarity BI [facility] Johan RA Sensing Refractory Period (ms) 190 ms [facility] Johan RV Pacing Amplitude (volts) 1.625 [facility] Johan RV Pacing Polarity BI [facility] Johan RV Pacing Pulse Width (ms) 0.5 ms [facility] Johan RV Sensing Amplitude (mvolts) 0.5 mV [facility] Johan RV Sensing Blanking Period (ms) 44 ms [facility] Johan RV Sensing Polarity BI [facility] Detection Configuration (Vent) 1 - Zone [facility] ICD FastVT DetectionStatus DISABLED [facility] ICD-AMS EPISODES 170 {beats}/min [facility] ICD-Johan RV Sensing Refractory Period (ms) 250 ms [facility] ICD-Device Mfg Other [facility] ICD-FALLBACKRATE_BPM 70 {beats}/min [facility] ICD-Hysteresis Rate Off [facility] ICD-LEADIMPEDANCEATRIA L 337.5 ohm [facility] ICD-Percent Pacing (Atrial) 75.0 % [facility] ICD-Percent Pacing (Vent) 99.0 % [facility] ICD-PMT Intervention Atrial Pace [facility] ICD-PVC Intervention Off [facility] ICD-Rate Modulation Acceleration Reaction Fast [facility] ICD-Rate Modulation Deceleration Medium [facility] ICD-Rate Modulation [place] Auto (+2) [facility] ICD-Rate Modulation Threshold Auto (-0.5) [facility] ICD-Rhythm SR ~66 [facility] ICD-Shocks Aborted (Vent) 0.0 [facility] [id number] 0.0 [facility] ICD-SHOCKSABORTED 0.0 [facility] ICD-SHOCKSDELIVEREDVEN TRICULAR 0.0 [facility] Implant Date 10/18/2021 [facility] Lead Impedance (LV) 825.0 ohm [facility] Lead Impedance (RV) 400.0 ohm [facility] Lead Impedance High Voltage 63.0 ohm [facility] Lead1 Mfg STJ [facility] Lead2 Mfg STJ [facility] Lead3 Mfg STJ [facility] Location LV [facility] Location RA [facility] Location RV [facility] Lower Rate (bpm) 70 {beats}/min [facility] Max Sensor Rate (bpm) 110 {beats}/min [facility] MDT_PROG_TACHY_ZONE_DE TECTIONS_STATUS ENABLED [facility] Model [id number] [place] HF [facility] Model 1458Q Quartet [facility] Model 2088TC Tendril STS [facility] Model 7122Q Dur[place] SJ4 [facility] Pacemaker Dependent? NO [facility] Pacing Mode DDDR [facility] Serial Number [id number] [facility] Serial Number [id number] [facility] Serial Number [id number] [facility] Serial Number [id number] [facility] Test Charge Time 9.125 [facility] Therapy Status (Vent) Enabled [facility] Thresh LV Capture Amplitude (volts) 0.75 V [facility] Thresh LV Capture Duration (ms) 0.5 ms [facility] Thresh RA Capture Amplitude (volts) 0.5 V [facility] Thresh RA Capture Duration (ms) 0.5 ms [facility] Thresh RA Sensing Amplitude (mvolts) 2.6 mV [facility] Thresh RV Capture Amplitude (VOLTS) 0.5 V [facility] Thresh RV Capture Duration (MS) 0.5 ms [facility] Thresh RV Sensing Amplitude (MVOLTS) 12.0 mV [facility] Tracking Rate (bpm) 130 {beats}/min [facility] VF Zone Detection Interval 300 ms [facility] VF Zone Therapy Configuration 1 ATP(s) + 6 Shock(s) [facility] No Panel Informationon 03-27 BLANK _ [facility] Implant Date 03/23/2014 [facility] ICD REMOTE CHECKon 3 AV Delay Adaptive Paced Minimum (ms) 170 ms [facility] AV Delay Adaptive Sensed Minimum (ms) 120 ms [facility] AV Delay Paced (ms) 90 ms [facility] AV Delay Sensed (ms) 90 ms [facility] Battery Voltage 2.98 V [facility] Johan LV Pacing Amplitude (volts) 2.0 V [facility] Johan LV Pacing Polarity BI [facility] Johan LV Pacing Pulse Width (ms) 0.5 ms [facility] Johan RA Pacing Amplitude (volts) 2.0 V [facility] Johan RA Pacing Polarity BI [facility] Johan RA Pacing Pulse Width (ms) 0.5 ms [facility] Johan RA Sensing Amplitude (mvolts) 0.5 mV [facility] Johan RA Sensing Polarity BI [facility] Johan RV Pacing Amplitude (volts) 1.5 V [facility] Johan RV Pacing Polarity BI [facility] Johan RV Pacing Pulse Width (ms) 0.5 ms [facility] Johan RV Sensing Amplitude (mvolts) 0.5 mV [facility] Johan RV Sensing Polarity BI [facility] Detection Configuration (Vent) 1 - Zone [facility] ICD FastVT DetectionStatus DISABLED [facility] ICD-AMS EPISODES 170 {beats}/min [facility] ICD-ATP Episodes (Vent) 0 [facility] ICD-Device Mfg Other [facility] ICD-LEADIMPEDANCEATRIA L 340 ohm [facility] ICD-Percent Pacing (Atrial) 74.0 % [facility] ICD-Shocks Aborted (Vent) 0 [facility] [id number] 0 [facility] ICD-SHOCKSABORTED 0 [facility] ICD-SHOCKSDELIVEREDVEN TRICULAR 0 [facility] ICD-VVDELAY_MS 45 ms [facility] Implant Date 10/18/2021 [facility] Lead Impedance (LV) 800 ohm [facility] Lead Impedance (RV) 400 ohm [facility] Lead Impedance High Voltage 60 ohm [facility] Lead1 Mfg STJ [facility] Lead2 Mfg STJ [facility] Lead3 Mfg STJ [facility] Location LV [facility] Location RA [facility] Location RV [facility] Lower Rate (bpm) 70 {beats}/min [facility] Max Sensor Rate (bpm) 110 {beats}/min [facility] MDT_PROG_TACHY_ZONE_DE TECTIONS_STATUS ENABLED [facility] Model [id number] [place] HF [facility] Model 1458Q Quartet [facility] Model 2088TC Tendril STS [facility] Model 7122Q Durata SJ4 [facility] Pacing Mode DDDR [facility] Serial Number [id number] [facility] Serial Number [id number] [facility] Serial Number [id number] [facility] Serial Number [id number] [facility] Test Charge Energy 40 J [facility] Test Charge Time 9.1 s [facility] Therapy Status (Vent) Enabled [facility] Thresh LV Capture Amplitude (volts) 0.75 V [facility] Thresh LV Capture Duration (ms) 0.5 ms [facility] Thresh RA Capture Amplitude (volts) 0.375 V [facility] Thresh RA Capture Duration (ms) 0.5 ms [facility] Thresh RA Sensing Amplitude (mvolts) 2.1 mV [facility] Thresh RV Capture Amplitude (VOLTS) 0.5 V [facility] Thresh RV Capture Duration (MS) 0.5 ms [facility] Thresh RV Sensing Amplitude (MVOLTS) 12.0 mV [facility] Tracking Rate (bpm) 130 {beats}/min [facility] VF Zone Detection Interval 300 ms [facility] VF Zone Therapy Configuration 0 ATP(s) + 6 Shock(s) [facility] No Panel Informationon 02-01 BLANK _ [facility] Implant Date 03/23/2014 [facility] CBC AUTO DIFFon 07-23-2022 BASO # 0.0 103/ul Normal 0.0-0.1 [facility] Comment on above: Performed By: #### P THINT #### [facility] [address] [place] [address] Dr. Darline Starr Basophils/100 WBC (Bld) 0.3 % Normal 0.2-2.0 [facility] Comment on above: Performed By: #### P THINT #### [facility] [address] [address] [address] Darline Starr EO # 0.4 103/ul Normal 0.0-0.7 [facility] Comment on above: Performed By: #### P THINT #### [facility] [address] [place] [address] Dr. Darline Starr Eosinophils/100 WBC (Bld) 4.6 % Normal 0.9-7.0 [facility] Comment on above: Performed By: #### P THINT #### [facility] [address] [address] [address] Darline Starr Erythrocyte distribution width (RBC) [Ratio] 14.6 % Normal 11.0-15.0 [facility] Comment on above: Performed By: #### P THINT #### [facility] [address] [place] [address] Dr. Darline Starr Hematocrit (Bld) [Volume fraction] 33.6 % Critically low 42.0-54.0 [facility] Comment on above: Performed By: #### P THINT #### [facility] [address] [place] [address] Dr. Darline Starr Hemoglobin (Bld) [Mass/Vol] 11.5 g/dL Critically low 14.0-18.0 [facility] Comment on above: Performed By: #### P THINT #### [facility] [address] [place] [address] Dr. Darline Starr IG # 0.03 10e3/ul Normal 0.00-0.03 [facility] Comment on above: Performed By: #### P THINT #### [facility] [address] [place] [address] Dr. Darline Starr IG % 0.4 % Normal 0.0-0.5 [facility] Comment on above: Performed By: #### P THINT #### [facility] [address] [place] [address] Dr. Darline Starr LYMPH # 0.9 103/ul Critically low 1.2-3.8 [facility] Comment on above: Performed By: #### P THINT #### [facility] [address] [place] [address] Dr. Darline Starr Lymphocytes/100 WBC (Bld) 11.5 % Critically low 20.5-60.0 [facility] Comment on above: Performed By: #### P THINT #### [facility] [address] [place] [address] Dr. Darline Starr MANUAL DIFF REQ NO Normal [facility] Comment on above: Performed By: #### P THINT #### [facility] [address] [place] [address] Dr. Darline Starr MCH (RBC) [Entitic mass] 31.3 pg Normal 25.9-34.0 [facility] Comment on above: Performed By: #### P THINT #### [facility] [address] [place] [address] Dr. Darline Starr MCHC (RBC) [Mass/Vol] 34.2 g/dL Normal 29.9-35.2 [facility] Comment on above: Performed By: #### P THINT #### [facility] [address] [place] [address] Dr. Darline Starr MCV (RBC) [Entitic vol] 91.3 fL Normal 80.0-94.0 [facility] Comment on above: Performed By: #### P THINT #### [facility] [address] [place] [address] Dr. Darline Starr MONO # 0.8 103/ul Normal 0.3-0.8 [facility] Comment on above: Performed By: #### P THINT #### [facility] [address] [place] [address] Dr. Darline Starr Monocytes/100 WBC (Bld) 9.5 % Normal 1.7-12.0 [facility] Comment on above: Performed By: #### P THINT #### [facility] [address] [place] [address] Dr. Darline Starr NEUT # 5.9 103/ul Normal 1.4-6.5 [facility] Comment on above: Performed By: #### P THINT #### [facility] [address] [place] [address] Dr. Darline Starr Neutrophils/100 WBC (Bld) 73.7 % Normal 43.0-75.0 [facility] Comment on above: Performed By: #### P THINT #### [facility] [address] [place] [address] Dr. Darline Starr Platelet mean volume (Bld) [Entitic vol] 9.5 fL Normal 9.5-13.5 [facility] Comment on above: Performed By: #### P THINT #### [facility] [address] [place] [address] Dr. Darline Starr PLT 128 103/ul Critically low 150-[address] [facility] Comment on above: Performed By: #### P THINT #### [facility] [address] [place] [address] Dr. Darline Starr RBC 3.68 106/ul Critically low 4.70-6.10 [facility] Comment on above: Performed By: #### P THINT #### [facility] [address] [place] [address] Dr. Darline Starr WBC 8.0 103/ul Normal 4.0-11.0 [facility] Comment on above: Performed By: #### P THINT #### [facility] [address] [address] [address] Darline Starr CPKon 07-23-2022 CK [Catalytic activity/Vol] 382 U/L Critically high 39-308 [facility] Comment on above: Performed By: #### C K #### [facility] [address] [address] [address] Darline Starr GLYCOHEMOGLOBIN A1Con 2022 ADA RECOMMENDATION SEE BELOW Normal [facility] Comment on above: Result Comment: ADA RECOMMENDED LIMIT 4.0 - 6.0 ADA THERAPEUTIC TARGET < 7.0 ACTION SUGGESTED > 7.0 Performed By: #### P OCGLUC #### [facility] [address] [place] [address] Dr. Darline Starr Glucose [Mass/Vol] 131 mg/dL Normal [facility] Comment on above: Performed By: #### P OCGLUC #### [facility] [address] [address] [address] Darline Starr HbA1c (Bld) [Mass fraction] 6.2 % Normal 4.5-6.2 [facility] Comment on above: Performed By: #### P OCGLUC #### [facility] [address] [place] [address] Dr. Darline Starr POINT OF CARE GLUCOSEon Glucose [Mass/Vol] 197 mg/dL Critically high 74-106 [facility] Comment on above: Performed By: #### P OCGLUC #### [facility] [address] [place] [address] Dr. Darline Starr Glucose [Mass/Vol] 74 mg/dL Normal 74-[address] [facility] Comment on above: Performed By: #### P OCGLUC #### [facility] [address] [address] [address] Darline Starr Glucose [Mass/Vol] 75 mg/dL Normal 74-[address] [facility] Comment on above: Performed By: #### P OCGLUC #### [facility] [address] [address] [address] Darline Starr Glucose [Mass/Vol] 98 mg/dL Normal 74-[address] [facility] Comment on above: Performed By: #### C K #### [facility] [address] [address] [address] Darline Starr Glucose [Mass/Vol] 70 mg/dL Critically low 74-106 [facility] Comment on above: Performed By: #### P OCGLUC #### [facility] [address] [address] [address] Darline Starr Glucose [Mass/Vol] 75 mg/dL Normal 74-[address] [facility] Comment on above: Performed By: #### P OCGLUC #### [facility] [address] [address] [address] Darline Starr Glucose [Mass/Vol] 53 mg/dL Critically low 74-106 [facility] Comment on above: Performed By: #### P THINT #### [facility] [address] [address] [address] Darline Starr PROF CHEM 8 (BAS METB)on Anion gap [Moles/Vol] 13.9 mmol/L Normal [facility] Comment on above: Performed By: #### P OCGLUC #### [facility] [address] [place] [address] Dr. Darline Starr Calcium [Mass/Vol] 7.9 mg/dL Critically low 8.5-10.1 [facility] Comment on above: Performed By: #### P OCGLUC #### [facility] [address] [address] [address] Darline Starr Chloride [Moles/Vol] 107 mmol/L Normal 98-107 [facility] Comment on above: Performed By: #### P OCGLUC #### [facility] [address] [address] [address] Darline Starr CO2 [Moles/Vol] 22.9 mmol/L Normal 21.0-32.0 [facility] Comment on above: Performed By: #### P OCGLUC #### [facility] [address] [address] [address] Darline Starr Creatinine [Mass/Vol] 1.70 mg/dL Critically high 0.70-1.30 [facility] Comment on above: Performed By: #### P OCGLUC #### [facility] [address] [address] [address] Darline Starr EGFR-AF GREEK 47 mL/min/1.73m2 Critically low >=60 [facility] Comment on above: Performed By: #### P OCGLUC #### [facility] [address] [address] [address] Darline Starr EGFR-NON AF GREEK 39 mL/min/1.73m2 Critically low >=60 [facility] Comment on above: Performed By: #### P OCGLUC #### [facility] [address] [address] [address] Darline Starr Glucose [Mass/Vol] 71 mg/dL Critically low 74-106 [facility] Comment on above: Performed By: #### P OCGLUC #### [facility] [address] [address] [address] Darline Starr Potassium [Moles/Vol] 3.8 mmol/L Normal 3.5-5.1 [facility] Comment on above: Performed By: #### P OCGLUC #### [facility] [address] [address] [address] Darline Starr Sodium [Moles/Vol] 140 mmol/L Normal 136-[address] [facility] Comment on above: Performed By: #### P OCGLUC #### [facility] [address] [address] [address] Darline Starr Urea nitrogen [Mass/Vol] 28.0 mg/dL Critically high 7.0-18.0 [facility] Comment on above: Performed By: #### P OCGLUC #### [facility] [address] [address] [address] Darline Starr Urea nitrogen/Creatinine [Mass ratio] 16.5 mg/mg Normal [facility] Comment on above: Performed By: #### P OCGLUC #### [facility] [address] [address] [address] Darline Starr TSHon 07-23-2022 TSH 1.377 uIU/mL Normal 0.358-3.740 [facility] Comment on above: Performed By: #### P OCGLUC #### [facility] [address] [address] [address] Darline Starr CARDIAC PHILIP ADMITon 023 CK [Catalytic activity/Vol] 507 U/L Critically high 39-308 [facility] Comment on above: Performed By: #### P THINT #### [facility] [address] [address] [address] Darline Starr CK.MB [Mass/Vol] ng/mL Normal <=3.60 [facility] Comment on above: Performed By: #### P THINT #### [facility] [address] [place] [address] Dr. Darline Starr HSTROP 36.5 pg/mL Normal 4.0-76.1 [facility] Comment on above: Result Comment: CUT- OFF POINTS HAVE BEEN ESTABLISHED BASED ON THE FOURTH UNIVERSAL DEFINITIONS OF MYOCARDIAL INFARCTION. THE UPPER REFERENCE LIMIT (URL) OF TROPONIN, DEFINED THE 99TH PERCENTILE OF cTnI DISTRIBUTION IN A REFERENCE POPULATION, HAS BEEN CONFIRMED THE DECISION THRESHOLD FOR WA DIAGNOSIS. Performed By: #### P THINT #### [facility] [address] [place] [address] Dr. Darline Starr BRAYDEN 512 ng/mL Critically high 16-96 [facility] Comment on above: Performed By: #### P THINT #### [facility] [address] [address] [address] Darline Starr CBC AUTO DIFFon 07-22-2022 BASO # 0.0 103/ul Normal 0.0-0.1 [facility] Comment on above: Performed By: #### P THINT #### [facility] [address] [place] [address] Dr. Darline Starr Basophils/100 WBC (Bld) 0.2 % Normal 0.2-2.0 [facility] Comment on above: Performed By: #### P THINT #### [facility] [address] [address] [address] Darline Starr EO # 0.0 103/ul Normal 0.0-0.7 [facility] Comment on above: Performed By: #### P THINT #### [facility] [address] [place] [address] Dr. Darline Starr Eosinophils/100 WBC (Bld) 0.3 % Critically low 0.9-7.0 [facility] Comment on above: Performed By: #### P THINT #### [facility] [address] [place] [address] Dr. Darline Starr Erythrocyte distribution width (RBC) [Ratio] 14.6 % Normal 11.0-15.0 [facility] Comment on above: Performed By: #### P THINT #### [facility] [address] [place] [address] Dr. Darline Starr Hematocrit (Bld) [Volume fraction] 33.2 % Critically low 42.0-54.0 [facility] Comment on above: Performed By: #### P THINT #### [facility] [address] [place] [address] Dr. Darline Starr Hemoglobin (Bld) [Mass/Vol] 11.1 g/dL Critically low 14.0-18.0 [facility] Comment on above: Performed By: #### P THINT #### [facility] [address] [place] [address] Dr. Darline Starr IG # 0.04 10e3/ul Critically high 0.00-0.03 [facility] Comment on above: Performed By: #### P THINT #### [facility] [address] [place] [address] Dr. Darline Starr IG % 0.4 % Normal 0.0-0.5 [facility] Comment on above: Performed By: #### P THINT #### [facility] [address] [place] [address] Dr. Darline Starr LYMPH # 0.4 103/ul Critically low 1.2-3.8 [facility] Comment on above: Performed By: #### P THINT #### [facility] [address] [place] [address] Dr. Darline Starr Lymphocytes/100 WBC (Bld) 3.7 % Critically low 20.5-60.0 [facility] Comment on above: Performed By: #### P THINT #### [facility] [address] [place] [address] Dr. Darline Starr MANUAL DIFF REQ NO Normal [facility] Comment on above: Performed By: #### P THINT #### [facility] [address] [place] [address] Dr. Darline Starr MCH (RBC) [Entitic mass] 30.9 pg Normal 25.9-34.0 [facility] Comment on above: Performed By: #### P THINT #### [facility] [address] [place] [address] Dr. Darline Starr MCHC (RBC) [Mass/Vol] 33.4 g/dL Normal 29.9-35.2 [facility] Comment on above: Performed By: #### P THINT #### [facility] [address] [place] [address] Dr. Darline Starr MCV (RBC) [Entitic vol] 92.5 fL Normal 80.0-94.0 [facility] Comment on above: Performed By: #### P THINT #### [facility] [address] [place] [address] Dr. Darline Starr MONO # 0.6 103/ul Normal 0.3-0.8 [facility] Comment on above: Performed By: #### P THINT #### [facility] [address] [place] [address] Dr. Darline Starr Monocytes/100 WBC (Bld) 5.7 % Normal 1.7-12.0 [facility] Comment on above: Performed By: #### P THINT #### [facility] [address] [place] [address] Dr. Darline Starr NEUT # 9.1 103/ul Critically high 1.4-6.5 [facility] Comment on above: Performed By: #### P THINT #### [facility] [address] [address] [address] Darline Starr Neutrophils/100 WBC (Bld) 89.7 % Critically high 43.0-75.0 [facility] Comment on above: Performed By: #### P THINT #### [facility] [address] [place] [address] Dr. Darline Starr Platelet mean volume (Bld) [Entitic vol] 9.2 fL Critically low 9.5-13.5 [facility] Comment on above: Performed By: #### P THINT #### [facility] [address] [place] [address] Dr. Darline Starr PLT 121 103/ul Critically low 150-450 [facility] Comment on above: Performed By: #### P THINT #### [facility] [address] [place] [address] Dr. Darline Starr RBC 3.59 106/ul Critically low 4.70-6.10 [facility] Comment on above: Performed By: #### P THINT #### [facility] [address] [place] [address] Dr. Darline Starr WBC 10.2 103/ul Normal 4.0-11.0 [facility] Comment on above: Performed By: #### P THINT #### [facility] [address] [place] [address] Dr. Darline Starr [facility]on SARS-CoV-2 (COVID-19) RNA MILDRED+probe Ql (Unsp spec) Not detected Normal NOT DETECTED [facility] Comment on above: Result Comment: When [...] for this test is supported by the Entertainment Agent of Health and Human Service's declaration that [...] used). Performed By: #### P OCGLUC #### [facility] [address] [place] [address] Dr. Darline Starr POINT OF CARE GLUCOSEon Glucose [Mass/Vol] 141 mg/dL Critically high 74-106 [facility] Comment on above: Performed By: #### P OCGLUC #### [facility] [address] [place] [address] Dr. Darline Starr Glucose [Mass/Vol] 55 mg/dL Critically low 74-106 [facility] Comment on above: Performed By: #### P OCGLUC #### [facility] [address] [place] [address] Dr. Darline Starr Glucose [Mass/Vol] 131 mg/dL Critically high 74-106 [facility] Comment on above: Performed By: #### P OCGLUC #### [facility] [address] [place] [address] Dr. Darline Starr PROF CHEM 8 (BAS METB)on Anion gap [Moles/Vol] 13.8 mmol/L Normal [facility] Comment on above: Performed By: #### P OCGLUC #### [facility] [address] [place] [address] Dr. Darline Starr Calcium [Mass/Vol] 7.5 mg/dL Critically low 8.5-10.1 [facility] Comment on above: Performed By: #### P OCGLUC #### [facility] [address] [place] [address] Dr. Darline Starr Chloride [Moles/Vol] 104 mmol/L Normal 98-107 [facility] Comment on above: Performed By: #### P OCGLUC #### [facility] [address] [address] [address] Darline Starr CO2 [Moles/Vol] 24.3 mmol/L Normal 21.0-32.0 [facility] Comment on above: Performed By: #### P OCGLUC #### [facility] [address] [address] [address] Darline Starr Creatinine [Mass/Vol] 2.12 mg/dL Critically high 0.70-1.30 [facility] Comment on above: Performed By: #### P OCGLUC #### [facility] [address] [address] [address] Darline Starr EGFR-AF GREEK 37 mL/min/1.73m2 Critically low >=60 [facility] Comment on above: Performed By: #### P OCGLUC #### [facility] [address] [address] [address] Darline Starr EGFR-NON AF GREEK 30 mL/min/1.73m2 Critically low >=60 [facility] Comment on above: Performed By: #### P OCGLUC #### [facility] [address] [address] [address] Darline Starr Glucose [Mass/Vol] 108 mg/dL Critically high 74-106 [facility] Comment on above: Performed By: #### P OCGLUC #### [facility] [address] [address] [address] Darline Starr Potassium [Moles/Vol] 3.1 mmol/L Critically low 3.5-5.1 [facility] Comment on above: Performed By: #### P OCGLUC #### [facility] [address] [address] [address] Darline Starr Sodium [Moles/Vol] 139 mmol/L Normal 136-[address] [facility] Comment on above: Performed By: #### P OCGLUC #### [facility] [address] [address] [address] Darline Starr Urea nitrogen [Mass/Vol] 30.0 mg/dL Critically high 7.0-18.0 [facility] Comment on above: Performed By: #### P OCGLUC #### [facility] [address] [address] [address] Darline Starr Urea nitrogen/Creatinine [Mass ratio] 14.2 mg/mg Normal [facility] Comment on above: Performed By: #### P OCGLUC #### [facility] [address] [address] [address] Darline Starr CBC AUTO DIFFon 07-20-2022 BASO # 0.0 103/ul Normal 0.0-0.1 [facility] Comment on above: Performed By: #### C K #### [facility] [address] [place] [address] Dr. Darline Starr Basophils/100 WBC (Bld) 0.2 % Normal 0.2-2.0 [facility] Comment on above: Performed By: #### C K #### [facility] [address] [place] [address] Dr. Darline Starr EO # 0.1 103/ul Normal 0.0-0.7 [facility] Comment on above: Performed By: #### C K #### [facility] [address] [address] [address] Darline Starr Eosinophils/100 WBC (Bld) 1.2 % Normal 0.9-7.0 [facility] Comment on above: Performed By: #### C K #### [facility] [address] [place] [address] Dr. Darline Starr Erythrocyte distribution width (RBC) [Ratio] 14.2 % Normal 11.0-15.0 [facility] Comment on above: Performed By: #### C K #### [facility] [address] [place] [address] Dr. Darline Starr Hematocrit (Bld) [Volume fraction] 41.4 % Critically low 42.0-54.0 [facility] Comment on above: Performed By: #### C K #### [facility] [address] [place] [address] Dr. Darline Starr Hemoglobin (Bld) [Mass/Vol] 13.7 g/dL Critically low 14.0-18.0 [facility] Comment on above: Performed By: #### C K #### [facility] [address] [address] [address] Darline Starr IG # 0.03 10e3/ul Normal 0.00-0.03 [facility] Comment on above: Performed By: #### C K #### [facility] [address] [address] [address] Darline Starr IG % 0.3 % Normal 0.0-0.5 [facility] Comment on above: Performed By: #### C K #### [facility] [address] [place] [address] Dr. Darline Starr LYMPH # 0.2 103/ul Critically low 1.2-3.8 [facility] Comment on above: Performed By: #### C K #### [facility] [address] [place] [address] Dr. Darline Starr Lymphocytes/100 WBC (Bld) 2.1 % Critically low 20.5-60.0 [facility] Comment on above: Performed By: #### C K #### [facility] [address] [place] [address] Dr. Darline Starr MANUAL DIFF REQ NO Normal [facility] Comment on above: Performed By: #### C K #### [facility] [address] [place] [address] Dr. Darline Starr MCH (RBC) [Entitic mass] 31.1 pg Normal 25.9-34.0 [facility] Comment on above: Performed By: #### C K #### [facility] [address] [place] [address] Dr. Darline Starr MCHC (RBC) [Mass/Vol] 33.1 g/dL Normal 29.9-35.2 [facility] Comment on above: Performed By: #### C K #### [facility] [address] [place] [address] Dr. Darline Starr MCV (RBC) [Entitic vol] 93.9 fL Normal 80.0-94.0 [facility] Comment on above: Performed By: #### C K #### [facility] [address] [address] [address] Darline Starr MONO # 0.3 103/ul Normal 0.3-0.8 [facility] Comment on above: Performed By: #### C K #### [facility] [address] [address] [address] Darline Starr Monocytes/100 WBC (Bld) 2.8 % Normal 1.7-12.0 [facility] Comment on above: Performed By: #### C K #### [facility] [address] [address] [address] Darline Starr NEUT # 10.2 103/ul Critically high 1.4-6.5 [facility] Comment on above: Performed By: #### C K #### [facility] [address] [address] [address] Darline Starr Neutrophils/100 WBC (Bld) 93.4 % Critically high 43.0-75.0 [facility] Comment on above: Performed By: #### C K #### [facility] [address] [address] [address] Darline Starr Platelet mean volume (Bld) [Entitic vol] 9.2 fL Critically low 9.5-13.5 [facility] Comment on above: Performed By: #### C K #### [facility] [address] [address] [address] Darline Starr PLT 140 103/ul Critically low 150-[address] [facility] Comment on above: Performed By: #### C K #### [facility] [address] [address] [address] Darline Starr RBC 4.41 106/ul Critically low 4.70-6.10 [facility] Comment on above: Performed By: #### C K #### [facility] [address] [address] [address] Darline Starr WBC 10.9 103/ul Normal 4.0-11.0 [facility] Comment on above: Performed By: #### C K #### [facility] [address] [place] [address] Dr. Darline Starr CPKon 07-20-2022 CK [Catalytic activity/Vol] 128 U/L Normal 39-308 [facility] Comment on above: Performed By: #### M ALBCRL #### [facility] [address] [place] [address] Dr. Darline Starr Covid-19 PCR ([facility])on SARS-CoV-2 (COVID-19) RNA MILDRED+probe Ql (Unsp spec) Not detected Normal NOT DETECTED [facility] Comment on above: Result Comment: When [...] for this test is supported by the Entertainment Agent of Health and Human Service's declaration that [...] used). Performed By: #### C K #### [facility] [address] [place] [address] Dr. Darline Starr GI PANEL (PCR)on 07-20-2022 Adenovirus F 40/41 Not detected Normal NOT DETECTED [facility] Comment on above: Performed By: #### P THINT #### [facility] [address] [place] [address] Dr. Darline Starr Astrovirus Not detected Normal NOT DETECTED [facility] Comment on above: Performed By: #### P THINT #### [facility] [address] [place] [address] Dr. Darline Starr C. Diff toxin A/B Not detected Normal NOT DETECTED [facility] Comment on above: Performed By: #### P THINT #### [facility] [address] [address] [address] Darline Starr Campylobacter Not detected Normal NOT DETECTED [facility] Comment on above: Performed By: #### P THINT #### [facility] [address] [address] [address] Darline Starr Cryptosporidium Not detected Normal NOT DETECTED [facility] Comment on above: Performed By: #### P THINT #### [facility] [address] [place] [address] Dr. Darline Starr Cyclos. Cayetanensis Not detected Normal NOT DETECTED [facility] Comment on above: Performed By: #### P THINT #### [facility] [address] [place] [address] Dr. Darline Starr E. Coli O157 Not Applicable Normal Not Applicable [facility] Comment on above: Performed By: #### P THINT #### [facility] [address] [address] [address] Darline Starr E. histolytica Not detected Normal NOT DETECTED [facility] Comment on above: Performed By: #### P THINT #### [facility] [address] [place] [address] Dr. Darline Starr EAEC Not detected Normal NOT DETECTED [facility] Comment on above: Performed By: #### P THINT #### [facility] [address] [place] [address] Dr. Darline Starr EIEC Not detected Normal NOT DETECTED [facility] Comment on above: Performed By: #### P THINT #### [facility] [address] [place] [address] Dr. Darline Starr EPEC Not detected Normal NOT DETECTED [facility] Comment on above: Performed By: #### P THINT #### [facility] [address] [place] [address] Dr. Darline Starr ETEC Not detected Normal NOT DETECTED [facility] Comment on above: Performed By: #### P THINT #### [facility] [address] [address] [address] Darline Diaz Lamblia Not detected Normal NOT DETECTED [facility] Comment on above: Performed By: #### P THINT #### [facility] [address] [address] [address] Darline OLIVARES CONTROLS PASSED Normal [facility] Comment on above: Performed By: #### P THINT #### [facility] [address] [address] [address] Darline KIM PETEY HEADER GI PANEL BACTERIA Normal T [facility] Comment on above: Performed By: #### P THINT #### [facility] [address] [address] [address] Darline MORALES ECOLI GI PANEL DIARRHEAGENIC E.COLI / SHIGELLA Normal [facility] Comment on above: Performed By: #### P THINT #### [facility] [address] [address] [address] Darline MORALES INFO SEE BELOW Normal [facility] Comment on above: Result Comment: EAEC - Enteroaggregative E. Coli EPEC- Enteropathogenic E. Coli ETEC- Enterotoxigenic E. Coli lt/st STEC- Shigella-like toxin-producing E. Coli stx1/stx2 EIEC- Shigella/Enteroinvasive E. Coli Performed By: #### P THINT #### [facility] [address] [address] [address] Darline MORALES PARASITES GI PANEL PARASITES Normal [facility] Comment on above: Performed By: #### P THINT #### [facility] [address] [address] [address] Darline MORALES VIRUS GI PANEL VIRUSES Normal [facility] Comment on above: Performed By: #### P THINT #### [facility] [address] [address] [address] Darline Starr Norovirus GI/GII Detected Abnormal NOT DETECTED [facility] Comment on above: Performed By: #### P THINT #### [facility] [address] [address] [address] Darline Gonzalez. Shigelloides Not detected Normal NOT DETECTED [facility] Comment on above: Performed By: #### P THINT #### [facility] [address] [place] [address] Dr. Darline Starr Rotavirus A Not detected Normal NOT DETECTED [facility] Comment on above: Performed By: #### P THINT #### [facility] [address] [place] [address] Dr. Darline Starr Salmonella Not detected Normal NOT DETECTED [facility] Comment on above: Performed By: #### P THINT #### [facility] [address] [place] [address] Dr. Darline Starr Sapovirus Not detected Normal NOT DETECTED [facility] Comment on above: Performed By: #### P THINT #### [facility] [address] [place] [address] Dr. Darline Starr STEC Not detected Normal NOT DETECTED [facility] Comment on above: Performed By: #### P THINT #### [facility] [address] [place] [address] Dr. Darline Starr Vibrio Not detected Normal NOT DETECTED [facility] Comment on above: Performed By: #### P THINT #### [facility] [address] [place] [address] Dr. Darline Starr Vibrio Cholera Not detected Normal NOT DETECTED [facility] Comment on above: Performed By: #### P THINT #### [facility] [address] [place] [address] Dr. Darline Starr Y. Enterocolitica Not detected Normal NOT DETECTED [facility] Comment on above: Performed By: #### P THINT #### [facility] [address] [place] [address] Dr. Darline Starr LIPASEon 07-20-2022 Lipase [Catalytic activity/Vol] 95.0 U/L Normal 73.0-393.0 [facility] Comment on above: Performed By: #### M ALBCRL #### [facility] [address] [place] [address] Dr. Darline Starr PROF 14(COMP METB)on 023 Albumin [Mass/Vol] 3.3 g/dL Critically low 3.4-5.0 [facility] Comment on above: Performed By: #### M ALBCRL #### [facility] [address] [address] [address] Darline Starr Albumin/Globulin [Mass ratio] 1.0 {ratio} Normal [facility] Comment on above: Performed By: #### M ALBCRL #### [facility] [address] [address] [address] Darline Starr ALP [Catalytic activity/Vol] 107 U/L Normal 46-116 [facility] Comment on above: Performed By: #### M ALBCRL #### [facility] [address] [place] [address] Dr. Darline Starr ALT [Catalytic activity/Vol] 23 U/L Normal 16-63 [facility] Comment on above: Performed By: #### M ALBCRL #### [facility] [address] [address] [address] Darline Starr Anion gap [Moles/Vol] 12.2 mmol/L Normal [facility] Comment on above: Performed By: #### M ALBCRL #### [facility] [address] [address] [address] Darline Starr AST [Catalytic activity/Vol] 27 U/L Normal 15-37 [facility] Comment on above: Performed By: #### M ALBCRL #### [facility] [address] [address] [address] Darline Starr Bilirubin [Mass/Vol] 0.6 mg/dL Normal 0.2-1.0 [facility] Comment on above: Performed By: #### M ALBCRL #### [facility] [address] [address] [address] Darline Starr Calcium [Mass/Vol] 8.8 mg/dL Normal 8.5-10.[address] [facility] Comment on above: Performed By: #### M ALBCRL #### [facility] [address] [address] [address] Darline Starr Chloride [Moles/Vol] 105 mmol/L Normal 98-107 [facility] Comment on above: Performed By: #### M ALBCRL #### [facility] [address] [address] [address] Darline Starr CO2 [Moles/Vol] 27.3 mmol/L Normal 21.0-32.0 [facility] Comment on above: Performed By: #### M ALBCRL #### [facility] [address] [place] [address] Dr. Darline Starr Creatinine [Mass/Vol] 1.46 mg/dL Critically high 0.70-1.30 [facility] Comment on above: Performed By: #### M ALBCRL #### [facility] [address] [place] [address] Dr. Darline Starr EGFR-AF GREEK 56 mL/min/1.73m2 Critically low >=60 [facility] Comment on above: Performed By: #### M ALBCRL #### [facility] [address] [place] [address] Dr. Darline Starr EGFR-NON AF GREEK 46 mL/min/1.73m2 Critically low >=60 [facility] [facility] Comment on above: Performed By: #### M ALBCRL #### [facility] [address] [place] [address] Dr. Darline Starr Globulin (S) [Mass/Vol] 3.3 g/dL Normal [facility] Comment on above: Performed By: #### M ALBCRL #### [facility] [address] [place] [address] Dr. Darline Starr Glucose [Mass/Vol] 149 mg/dL Critically high 74-106 T [facility] Comment on above: Performed By: #### M ALBCRL #### [facility] [address] [place] [address] Dr. Darline Starr Potassium [Moles/Vol] 4.5 mmol/L Normal 3.5-5.1 [facility] Comment on above: Performed By: #### M ALBCRL #### [facility] [address] [address] [address] Darline Starr Protein [Mass/Vol] 6.6 g/dL Normal 6.4-8.2 [facility] Comment on above: Performed By: #### M ALBCRL #### [facility] [id number] Darline Starr Sodium [Moles/Vol] 140 mmol/L Normal 136-145 [facility] Comment on above: Performed By: #### M ALBCRL #### [facility] [address] [address] [address] Darline Starr Urea nitrogen [Mass/Vol] 23.0 mg/dL Critically high 7.0-18.0 [facility] Comment on above: Performed By: #### M ALBCRL #### [facility] [address] [address] [address] Darline Starr Urea nitrogen/Creatinine [Mass ratio] 15.8 mg/mg Normal [facility] Comment on above: Performed By: #### M ALBCRL #### [facility] [address] [address] [address] Darline Starr TROPONIN, HIGH SENSITIVITYon 07-20-2022 HSTROP 12.0 pg/mL Normal 4.0-76.1 [facility] Comment on above: Result Comment: CUT- OFF POINTS HAVE BEEN ESTABLISHED BASED ON THE FOURTH UNIVERSAL DEFINITIONS OF MYOCARDIAL INFARCTION. THE UPPER REFERENCE LIMIT (URL) OF TROPONIN, DEFINED THE 99TH PERCENTILE OF cTnI DISTRIBUTION IN A REFERENCE POPULATION, HAS BEEN CONFIRMED THE DECISION THRESHOLD FOR WA DIAGNOSIS. Performed By: #### M ALBCRL #### [facility] [address] [address] [address] Darline Starr XR ABD FLAT UP_PA [...] AZALIA FRANZ Date: 2022-07-20 13:40 Normal [facility] POINT OF CARE GLUCOSEon 03-0 Glucose [Mass/Vol] 97 mg/dL Normal 74-106 [facility] Comment on above: Performed By: #### P OCGLUC #### [facility] [address] [address] [address] Darline Starr ICD CLINIC CHECKon 3 AV Delay Adaptive Paced Minimum (ms) 170 ms [facility] AV Delay Adaptive Rate Maximum (bpm) 130 {beats}/min [facility] AV Delay Adaptive Rate Minimum (bpm) 90 {beats}/min [facility] AV Delay Adaptive Sensed Minimum (ms) 120 ms [facility] AV Delay Adaptive Status Medium [facility] AV Delay Paced (ms) 90 ms [facility] AV Delay Sensed (ms) 90 ms [facility] Johan LV Pacing Amplitude (volts) 2 V [facility] Johan LV Pacing Polarity BI [facility] Johan LV Pacing Pulse Width (ms) 0.5 ms [facility] Johan RA Pacing Amplitude (volts) 2 V [facility] Johan RA Pacing Polarity BI [facility] Johan RA Pacing Pulse Width (ms) 0.5 ms [facility] Johan RA Sensing Amplitude (mvolts) 0.5 mV [facility] Johan RA Sensing Blanking Period (ms) 110 ms [facility] Johan RA Sensing Polarity BI [facility] Johan RA Sensing Refractory Period (ms) 190 ms [facility] Johan RV Pacing Amplitude (volts) 1.5 V [facility] Johan RV Pacing Polarity BI [facility] Johan RV Pacing Pulse Width (ms) 0.5 ms [facility] Johan RV Sensing Amplitude (mvolts) 0.5 mV [facility] Johan RV Sensing Blanking Period (ms) 44 ms [facility] Johan RV Sensing Polarity [facility] Detection Configuration (Vent) 1 - Zone [facility] ICD FastVT DetectionStatus DISABLED [facility] ICD-AMS EPISODES 170 {beats}/min [facility] ICD-Johan RV Sensing Refractory Period (ms) 250 ms [facility] ICD-Device Mfg Other [facility] ICD-FALLBACKRATE_BPM 70 {beats}/min [facility] ICD-Hysteresis Rate Off [facility] ICD-LEADIMPEDANCEATRIA L 337.5 ohm [facility] ICD-Percent Pacing (Atrial) 77 % [facility] ICD-Percent Pacing (Vent) 98 % [facility] ICD-PMT Intervention Atrial Pace [facility] ICD-PVC Intervention Off [facility] ICD-Rate Modulation Acceleration Reaction Fast [facility] ICD-Rate Modulation Deceleration Medium [facility] ICD-Rate Modulation [place] Auto (+2) [facility] ICD-Rate Modulation Threshold Auto (-0.5) [facility] ICD-Rhythm Sinus [facility] ICD-Shocks Aborted (Vent) 0 [facility] [id number] 0 [facility] ICD-SHOCKSABORTED 0 [facility] ICD-SHOCKSDELIVEREDVEN TRICULAR 0 [facility] Implant Date 10/18/2021 [facility] Lead Impedance (LV) 862.5 ohm [facility] Lead Impedance (RV) 487.5 ohm [facility] Lead Impedance High Voltage 65.25 ohm [facility] Lead1 Mfg STJ [facility] Lead2 Mfg STJ [facility] Lead3 Mfg STJ [facility] Location LV [facility] Location RA [facility] Location RV [facility] Lower Rate (bpm) 70 {beats}/min [facility] Max Sensor Rate (bpm) 110 {beats}/min [facility] MDT_PROG_TACHY_ZONE_DE TECTIONS_STATUS ENABLED [facility] Model [id number] [place] HF [facility] Model 1458Q Quartet [facility] Model 2088TC Tendril STS [facility] Model 7122Q Durata SJ4 [facility] Pacemaker Dependent? NO [facility] Pacing Mode DDDR [facility] Serial Number [id number] [facility] Serial Number [id number] [facility] Serial Number [id number] [facility] Serial Number [id number] [facility] Therapy Status (Vent) Enabled [facility] Thresh LV Capture Amplitude (volts) 0.75 V [facility] Thresh LV Capture Duration (ms) 0.5 ms [facility] Thresh RA Capture Amplitude (volts) 0.5 V [facility] Thresh RA Capture Duration (ms) 0.5 ms [facility] Thresh RA Sensing Amplitude (mvolts) 1.5 mV [facility] Thresh RV Capture Amplitude (VOLTS) 0.5 V [facility] Thresh RV Capture Duration (MS) 0.5 ms [facility] Thresh RV Sensing Amplitude (MVOLTS) 12 mV [facility] Tracking Rate (bpm) 130 {beats}/min [facility] VF Zone Detection Interval 300 ms [facility] VF Zone Therapy Configuration 1 ATP(s) + 6 Shock(s) [facility] No Panel Informationon 07-04 BLANK _ [facility] Implant Date 03/23/2014 [facility] Covid-19 PCR (CVDTB)on 05-21 SARS-CoV-2 (COVID-19) RNA MILDRED+probe Ql (Unsp spec) Not detected Normal NOT DETECTED [facility] Comment on above: Result Comment: This test is not yet approved or cleared by the [place] FDA. When there are no FDA-approved or cleared tests available, and other criteria are met, FDA can make tests available under an emergency access mechanism called an Emergency Use Authorization (EUA). The EUA for this test is supported by the [place] of Health and Human Service's (HHS's) declaration [...] SARS-CoV-2. Performed By: #### P THINT #### [facility] [address] [place] [address] Dr. Darline Starr ICD REMOTE CHECKon 2 AV Delay Adaptive Paced Minimum (ms) 170 ms [facility] AV Delay Adaptive Sensed Minimum (ms) 120 ms [facility] AV Delay Paced (ms) 90 ms [facility] AV Delay Sensed (ms) 90 ms [facility] Battery Voltage 2.99 V [facility] Johan LV Pacing Amplitude (volts) 2.5 V [facility] Johan LV Pacing Polarity BI [facility] Johan LV Pacing Pulse Width (ms) 0.5 ms [facility] Johan RA Pacing Amplitude (volts) 2 V [facility] Johan RA Pacing Polarity BI [facility] Johan RA Pacing Pulse Width (ms) 0.5 ms [facility] Johan RA Sensing Amplitude (mvolts) 0.5 mV [facility] Johan RA Sensing Polarity BI [facility] Johan RV Pacing Amplitude (volts) 1.5 V [facility] Johan RV Pacing Polarity BI [facility] Johan RV Pacing Pulse Width (ms) 0.5 ms [facility] Johan RV Sensing Amplitude (mvolts) 0.5 mV [facility] Johan RV Sensing Polarity BI [facility] Detection Configuration (Vent) 1 - Zone [facility] ICD FastVT DetectionStatus DISABLED [facility] ICD-AMS EPISODES 170 {beats}/min [facility] ICD-ATP Episodes (Vent) 0 [facility] ICD-Device Mfg Other [facility] ICD-Fast Ventricular Tachycardia 32 [facility] ICD-Fast Ventricular Tachycardia 8 [facility] ICD-LEADIMPEDANCEATRIA L 330 ohm [facility] ICD-Percent Pacing (Atrial) 79 % [facility] ICD-Shocks Aborted (Vent) 0 [facility] LOD-[id number] 0 [facility] ICD-SHOCKSABORTED 0 [facility] ICD-SHOCKSDELIVEREDVEN TRICULAR 0 [facility] ICD-Ventricular Fibrillation 0 [facility] ICD-VVDELAY_MS 45 ms [facility] Implant Date 10/18/2021 [facility] Lead Impedance (LV) 760 ohm [facility] Lead Impedance (RV) 380 ohm [facility] Lead Impedance High Voltage 63 ohm [facility] Lead1 Mfg STJ [facility] Lead2 Mfg STJ [facility] Lead3 Mfg STJ [facility] Location LV [facility] Location RA [facility] Location RV [facility] Lower Rate (bpm) 70 {beats}/min [facility] Max Sensor Rate (bpm) 110 {beats}/min [facility] MDT_PROG_TACHY_ZONE_DE TECTIONS_STATUS ENABLED [facility] Model [id number] [place] HF [facility] Model 1458Q Quartet [facility] Model 2088TC Tendril STS [facility] Model 7122Q Durata SJ4 [facility] Pacing Mode DDDR [facility] Serial Number [id number] [facility] Serial Number [id number] [facility] Serial Number [id number] [facility] Serial Number [id number] [facility] Test Charge Energy 40 J [facility] Therapy Status (Vent) Enabled [facility] Thresh LV Capture Amplitude (volts) 1 V [facility] Thresh LV Capture Duration (ms) 0.5 ms [facility] Thresh RA Capture Amplitude (volts) 0.375 V [facility] Thresh RA Capture Duration (ms) 0.5 ms [facility] Thresh RA Sensing Amplitude (mvolts) 2.3 mV [facility] Thresh RV Capture Amplitude (VOLTS) 0.5 V [facility] Thresh RV Capture Duration (MS) 0.5 ms [facility] Thresh RV Sensing Amplitude (MVOLTS) 12 mV [facility] Tracking Rate (bpm) 130 {beats}/min [facility] VF Zone Detection Interval 300 ms [facility] VF Zone Therapy Configuration 0 ATP(s) + 6 Shock(s) [facility] No Panel Informationon 04-20 BLANK _ [facility] Implant Date 03/23/2014 [facility] CBC AUTO DIFFon 03-27-2022 BASO # 0.1 103/ul Normal 0.0-0.1 [facility] Comment on above: Performed By: #### P OCGLUC #### [facility] [address] [place] [address] Dr. Darline Starr Basophils/100 WBC (Bld) 0.7 % Normal 0.2-2.0 [facility] Comment on above: Performed By: #### P OCGLUC #### [facility] [address] [place] [address] Dr. Darline Starr EO # 0.2 103/ul Normal 0.0-0.7 [facility] Comment on above: Performed By: #### P OCGLUC #### [facility] [address] [place] [address] Dr. Darline Starr Eosinophils/100 WBC (Bld) 1.9 % Normal 0.9-7.0 [facility] Comment on above: Performed By: #### P OCGLUC #### [facility] [address] [place] [address] Dr. Darline Satrr Erythrocyte distribution width (RBC) [Ratio] 14.5 % Normal 11.0-15.0 [facility] Comment on above: Performed By: #### P OCGLUC #### [facility] [address] [address] [address] Darline Starr Hematocrit (Bld) [Volume fraction] 37.2 % Critically low 42.0-54.0 [facility] Comment on above: Performed By: #### P OCGLUC #### [facility] [address] [place] [address] Dr. Darline Starr Hemoglobin (Bld) [Mass/Vol] 12.3 g/dL Critically low 14.0-18.0 [facility] Comment on above: Performed By: #### P OCGLUC #### [facility] [address] [place] [address] Dr. Darline Starr IG # 0.03 10e3/ul Normal 0.00-0.03 [facility] Comment on above: Performed By: #### P OCGLUC #### [facility] [address] [place] [address] Dr. Darline Starr IG % 0.3 % Normal 0.0-0.5 [facility] Comment on above: Performed By: #### P OCGLUC #### [facility] [address] [place] [address] Dr. Darline Starr LYMPH # 1.1 103/ul Critically low 1.2-3.8 [facility] Comment on above: Performed By: #### P OCGLUC #### [facility] [address] [place] [address] Dr. Darline Starr Lymphocytes/100 WBC (Bld) 12.9 % Critically low 20.5-60.0 [facility] Comment on above: Performed By: #### P OCGLUC #### [facility] [address] [place], [place] [id number] Dr. Darline Starr MANUAL DIFF REQ NO Normal [facility] Comment on above: Performed By: #### P OCGLUC #### [facility] [address] [place] [address] Dr. Darline Starr MCH (RBC) [Entitic mass] 31.9 pg Normal 25.9-34.0 [facility] Comment on above: Performed By: #### P OCGLUC #### [facility] [address] [place] [address] Dr. Darline Starr MCHC (RBC) [Mass/Vol] 33.1 g/dL Normal 29.9-35.2 [facility] Comment on above: Performed By: #### P OCGLUC #### [facility] [address] [place] [address] Dr. Darline Starr MCV (RBC) [Entitic vol] 96.6 fL Critically high 80.0-94.0 [facility] Comment on above: Performed By: #### P OCGLUC #### [facility] [address] [place] [address] Dr. Darline Starr MONO # 0.7 103/ul Normal 0.3-0.8 [facility] Comment on above: Performed By: #### P OCGLUC #### [facility] [address] [place] [address] Dr. Darline Starr Monocytes/100 WBC (Bld) 7.4 % Normal 1.7-12.0 [facility] Comment on above: Performed By: #### P OCGLUC #### [facility] [address] [place] [address] Dr. Darline Starr NEUT # 6.7 103/ul Critically high 1.4-6.5 [facility] Comment on above: Performed By: #### P OCGLUC #### [facility] [address] [place] [address] Dr. Darline Starr Neutrophils/100 WBC (Bld) 76.8 % Critically high 43.0-75.0 [facility] Comment on above: Performed By: #### P OCGLUC #### [facility] [address] [address] [address] Darline Starr Platelet mean volume (Bld) [Entitic vol] 9.7 fL Normal 9.5-13.5 [facility] Comment on above: Performed By: #### P OCGLUC #### [facility] [address] [address] [address] Darline Starr PLT 236 103/ul Normal 150-450 [facility] Comment on above: Performed By: #### P OCGLUC #### [facility] [address] [address] [address] Darline Starr RBC 3.85 106/ul Critically low 4.70-6.10 [facility] Comment on above: Performed By: #### P OCGLUC #### [facility] [address] [address] [address] Darline Starr WBC 8.7 103/ul Normal 4.0-11.0 [facility] Comment on above: Performed By: #### P OCGLUC #### [facility] [address] [address] [address] Darline Starr GLYCOHEMOGLOBIN A1Con 2021 ADA RECOMMENDATION SEE BELOW Normal [facility] Comment on above: Result Comment: ADA RECOMMENDED LIMIT 4.0 - 6.0 ADA THERAPEUTIC TARGET < 7.0 ACTION SUGGESTED > 7.0 Performed By: #### P OCGLUC #### [facility] [address] [address] [address] Darline Starr Glucose [Mass/Vol] 134 mg/dL Normal [facility] Comment on above: Performed By: #### P OCGLUC #### [facility] [address] [address] [address] Darline Starr HbA1c (Bld) [Mass fraction] 6.3 % Critically high 4.5-6.2 [facility] Comment on above: Performed By: #### P OCGLUC #### [facility] [address] [place] [address] Dr. Darline Starr LIPID PROFILEon 03-27-2022 CHOL-HDL RATIO NORM SEE BELOW Normal [facility] Comment on above: Result Comment: 3.3 - 4.4 LOW RISK 4.4 - 7.1 AVERAGE RISK 7.1 - 11.0 MODERATE RISK >11.0 HIGH RISK Performed By: #### P OCGLUC #### [facility] [address] [address] [address] Darline Starr Cholesterol [Mass/Vol] 109 mg/dL Normal <=200 Th [facility] Comment on above: Performed By: #### P OCGLUC #### [facility] [address] [address] [address] Darline Starr Cholesterol in HDL [Mass/Vol] 39 mg/dL Critically low 40-60 [facility] Comment on above: Performed By: #### P OCGLUC #### [facility] [address] [address] [address] Darline Starr Cholesterol in LDL [Mass/Vol] 32.0 mg/dL Normal [facility] Comment on above: Performed By: #### P OCGLUC #### [facility] [address] [address] [address] Darline Starr Cholesterol.total/Chol esterol in HDL [Mass ratio] 2.8 {ratio} Normal [facility] Comment on above: Performed By: #### P OCGLUC #### [facility] [address] [address] [address] Darline Starr HDL NORMAL > or = 60 mg/dl - LO W CARDIOVASCULAR RISK <40 mg/dl - HIGH CARDIOVASCULAR RISK Normal [facility] Comment on above: Performed By: #### P OCGLUC #### [facility] [address] [address] [address] Darline Starr LDL CALC NORMAL SEE BELOW Normal [facility] Comment on above: Result Comment: <100 mg/dl OPTIMAL 100 - 129 mg/dl NEAR OR ABOVE OPTIMAL 130 - 159 mg/dl BORDERLINE HIGH 160 - 189 mg/dl HIGH >190 mg/dl VERY HIGH Performed By: #### P OCGLUC #### [facility] [address] [address] [address] Darline Starr Triglyceride [Mass/Vol] 190 mg/dL Critically high <=150 [facility] Comment on above: Performed By: #### P OCGLUC #### [facility] [address] [address] [address] Darline Starr VLDL CALC 38.0 mg/dL Normal [facility] Comment on above: Performed By: #### P OCGLUC #### [facility] [address] [address] [address] Darline Starr LIVER PROFILEon 03-27-2022 Albumin [Mass/Vol] 3.3 g/dL Critically low 3.4-5.0 [facility] Comment on above: Performed By: #### P OCGLUC #### [facility] [address] [address] [address] Darline Starr Albumin/Globulin [Mass ratio] 0.9 {ratio} Normal [facility] Comment on above: Performed By: #### P OCGLUC #### [facility] [address] [place] [address] Dr. Darline Starr ALP [Catalytic activity/Vol] 103 U/L Normal 46-116 [facility] Comment on above: Performed By: #### P OCGLUC #### [facility] [address] [place] [address] Dr. Darline Starr ALT [Catalytic activity/Vol] 25 U/L Normal 16-63 [facility] Comment on above: Performed By: #### P OCGLUC #### [facility] [address] [place] [address] Dr. Darline Starr AST [Catalytic activity/Vol] 18 U/L Normal 15-37 [facility] Comment on above: Performed By: #### P OCGLUC #### [facility] [address] [place] [address] Dr. Darline Starr BILI, CONJUGATED 0.1 mg/dL Normal 0.0-0.2 [facility] Comment on above: Performed By: #### P OCGLUC #### [facility] [address] [address] [address] Darline Starr Bilirubin [Mass/Vol] 0.3 mg/dL Normal 0.2-1.0 [facility] Comment on above: Performed By: #### P OCGLUC #### [facility] [address] [address] [address] Darline Starr Globulin (S) [Mass/Vol] 3.7 g/dL Normal [facility] Comment on above: Performed By: #### P OCGLUC #### [facility] [address] [address] [address] Darline Starr Protein [Mass/Vol] 7.0 g/dL Normal 6.4-8.[address] [facility] Comment on above: Performed By: #### P OCGLUC #### [facility] [address] [address] [address] Darline Starr PROF CHEM 8 (BAS METB)on Anion gap [Moles/Vol] 11.7 mmol/L Normal [facility] Comment on above: Performed By: #### P OCGLUC #### [facility] [address] [place] [address] Dr. Darline Starr Calcium [Mass/Vol] 8.9 mg/dL Normal 8.5-10.[address] [facility] Comment on above: Performed By: #### P OCGLUC #### [facility] [address] [address] [address] Darline Starr Chloride [Moles/Vol] 104 mmol/L Normal 98-107 [facility] Comment on above: Performed By: #### P OCGLUC #### [facility] [address] [place] [address] Dr. Darline Starr CO2 [Moles/Vol] 27.8 mmol/L Normal 21.0-32.0 [facility] Comment on above: Performed By: #### P OCGLUC #### [facility] [address] [address] [address] Darline Starr Creatinine [Mass/Vol] 1.64 mg/dL Critically high 0.70-1.30 [facility] Comment on above: Performed By: #### P OCGLUC #### [facility] [address] [address] [address] Darline Starr EGFR-AF GREEK 49 mL/min/1.73m2 Critically low >=60 [facility] Comment on above: Performed By: #### P OCGLUC #### [facility] [address] [address] [address] Darline Starr EGFR-NON AF GREEK 41 mL/min/1.73m2 Critically low >=60 [facility] Comment on above: Performed By: #### P OCGLUC #### [facility] [address] [address] [address] Darline Starr Glucose [Mass/Vol] 121 mg/dL Critically high 74-106 [facility] Comment on above: Performed By: #### P OCGLUC #### [facility] [address] [address] [address] Darline Starr Potassium [Moles/Vol] 4.5 mmol/L Normal 3.5-5.1 [facility] Comment on above: Performed By: #### P OCGLUC #### [facility] [address] [address] [address] Darline Starr Sodium [Moles/Vol] 139 mmol/L Normal 136-[address] [facility] Comment on above: Performed By: #### P OCGLUC #### [facility] [address] [address] [address] Darline Starr Urea nitrogen [Mass/Vol] 23.0 mg/dL Critically high 7.0-18.0 [facility] Comment on above: Performed By: #### P OCGLUC #### [facility] [address] [address] [address] Darline Starr Urea nitrogen/Creatinine [Mass ratio] 14.0 mg/mg Normal [facility] [facility] Comment on above: Performed By: #### P OCGLUC #### [facility] [address] [address] [address] Darline Starr TSHon 03-27-2022 TSH 2.743 uIU/mL Normal 0.358-3.740 [facility] Comment on above: Performed By: #### P OCGLUC #### [facility] [address] [address] [address] Darline Starr VITAMIN D 25 OHon 03-27-2022 VIT D 25-OH 46.9 ng/mL Normal [facility] Comment on above: Performed By: #### C K #### [facility] [address] [place] [address] Dr. Darline Starr VIT D RANGES SEE BELOW Normal [facility] Comment on above: Result Comment: <20 ng/mL Vit D deficient 20 - <30 ng/mL Vit D insufficient 30 - 100 ng/mL Vit D sufficient >100 ng/mL Potential Toxicity Performed By: #### C K #### [facility] [address] [place] [address] Dr. Darline Starr CBC AUTO DIFFon 03-12-2022 BASO # 0.1 103/ul Normal 0.0-0.1 [facility] Comment on above: Performed By: #### C BC #### [facility] [address] [place] [address] Dr. Darline Starr Basophils/100 WBC (Bld) 0.5 % Normal 0.2-2.0 [facility] Comment on above: Performed By: #### C BC #### [facility] [address] [place] [address] Dr. Darline Starr EO # 0.4 103/ul Normal 0.0-0.7 [facility] Comment on above: Performed By: #### C BC #### [facility] [address] [place] [address] Dr. Darline Starr Eosinophils/100 WBC (Bld) 3.8 % Normal 0.9-7.0 [facility] Comment on above: Performed By: #### C BC #### [facility] [address] [place] [address] Dr. Darline Starr Erythrocyte distribution width (RBC) [Ratio] 13.3 % Normal 11.0-15.0 [facility] Comment on above: Performed By: #### C BC #### [facility] [address] [place] [address] Dr. Darline Starr Hematocrit (Bld) [Volume fraction] 31.6 % Critically low 42.0-54.0 [facility] Comment on above: Performed By: #### C BC #### [facility] [address] [place] [address] Dr. Darline Starr Hemoglobin (Bld) [Mass/Vol] 10.4 g/dL Critically low 14.0-18.0 [facility] Comment on above: Performed By: #### C BC #### [facility] [address] [place] [address] Dr. Darline Starr IG # 0.06 10e3/ul Critically high 0.00-0.03 [facility] Comment on above: Performed By: #### C BC #### [facility] [address] [place] [address] Dr. Darline Starr IG % 0.6 % Critically high 0.0-0.5 [facility] Comment on above: Performed By: #### C BC #### [facility] [address] [place] [address] Dr. Darline Starr LYMPH # 1.4 103/ul Normal 1.2-3.8 [facility] Comment on above: Performed By: #### C BC #### [facility] [address] [place] [address] Dr. Darline Starr Lymphocytes/100 WBC (Bld) 15.1 % Critically low 20.5-60.0 [facility] Comment on above: Performed By: #### C BC #### [facility] [address] [place] [address] Dr. Darline Starr MANUAL DIFF REQ NO Normal [facility] Comment on above: Performed By: #### C BC #### [facility] [address] [place] [address] Dr. Darline Starr MCH (RBC) [Entitic mass] 31.4 pg Normal 25.9-34.0 [facility] Comment on above: Performed By: #### C BC #### [facility] [address] [place] [address] Dr. Darline Starr MCHC (RBC) [Mass/Vol] 32.9 g/dL Normal 29.9-35.2 [facility] Comment on above: Performed By: #### C BC #### [facility] [address] [place] [address] Dr. Darline Starr MCV (RBC) [Entitic vol] 95.5 fL Critically high 80.0-94.0 [facility] Comment on above: Performed By: #### C BC #### [facility] [address] [place] [address] Dr. Darline Starr MONO # 0.7 103/ul Normal 0.3-0.8 [facility] Comment on above: Performed By: #### C BC #### [facility] [address] [place] [address] Dr. Darline Starr Monocytes/100 WBC (Bld) 7.5 % Normal 1.7-12.0 [facility] Comment on above: Performed By: #### C BC #### [facility] [address] [place] [address] Dr. Darline Starr NEUT # 6.8 103/ul Critically high 1.4-6.5 [facility] Comment on above: Performed By: #### C BC #### [facility] [address] [place] [address] Dr. Darline Starr Neutrophils/100 WBC (Bld) 72.5 % Normal 43.0-75.0 [facility] Comment on above: Performed By: #### C BC #### [facility] [address] [place] [address] Dr. Darline Starr Platelet mean volume (Bld) [Entitic vol] 9.3 fL Critically low 9.5-13.5 [facility] Comment on above: Performed By: #### C BC #### [facility] [address] [place] [address] Dr. Darline Starr PLT 194 103/ul Normal 150-450 [facility] Comment on above: Performed By: #### C BC #### [facility] [address] [place] [address] Dr. Darline Starr RBC 3.31 106/ul Critically low 4.70-6.10 [facility] Comment on above: Performed By: #### C BC #### [facility] [address] [place] [address] Dr. Darline Starr WBC 9.4 103/ul Normal 4.0-11.0 [facility] Comment on above: Performed By: #### C BC #### [facility] [address] [place] [address] Dr. Darline Starr HEMOGLOBIN AND HEMATOCRITon 03-12-2022 Hematocrit (Bld) [Volume fraction] 32.7 % Critically low 42.0-54.0 [facility] Comment on above: Performed By: #### P OCGLUC #### [facility] [address] [place] [address] Dr. Darline Starr Hemoglobin (Bld) [Mass/Vol] 10.9 g/dL Critically low 14.0-18.0 [facility] Comment on above: Performed By: #### P OCGLUC #### [facility] [address] [place] [address] Dr. Darline Starr POINT OF CARE GLUCOSEon 02-18 Glucose [Mass/Vol] 196 mg/dL Critically high 74-106 [facility] Comment on above: Performed By: #### P OCGLUC #### [facility] [address] [place] [address] Dr. Darline Starr PROF 14(COMP METB)on 022 Albumin [Mass/Vol] 2.5 g/dL Critically low 3.4-5.0 [facility] Comment on above: Performed By: #### C K #### [facility] [address] [place] [address] Dr. Darline Starr Albumin/Globulin [Mass ratio] 0.7 {ratio} Normal [facility] Comment on above: Performed By: #### C K #### [facility] [address] [place] [address] Dr. Darline Starr ALP [Catalytic activity/Vol] 78 U/L Normal 46-116 [facility] Comment on above: Performed By: #### C K #### [facility] [address] [place] [address] Dr. Darline Starr ALT [Catalytic activity/Vol] 34 U/L Normal 16-63 [facility] Comment on above: Performed By: #### C K #### [facility] [address] [address] [address] Darline Starr Anion gap [Moles/Vol] 8.5 mmol/L Normal [facility] Comment on above: Performed By: #### C K #### [facility] [address] [place] [address] Dr. Darline Starr AST [Catalytic activity/Vol] 24 U/L Normal 15-37 [facility] Comment on above: Performed By: #### C K #### [facility] [address] [address] [address] Darline Starr Bilirubin [Mass/Vol] 0.3 mg/dL Normal 0.2-1.0 [facility] Comment on above: Performed By: #### C K #### [facility] [address] [place] [address] Dr. Darline Starr Calcium [Mass/Vol] 8.5 mg/dL Normal 8.5-10.[address] [facility] Comment on above: Performed By: #### C K #### [facility] [address] [place] [address] Dr. Darline Starr Chloride [Moles/Vol] 107 mmol/L Normal 98-107 [facility] Comment on above: Performed By: #### C K #### [facility] [address] [place] [address] Dr. Darline Starr CO2 [Moles/Vol] 26.5 mmol/L Normal 21.0-32.0 [facility] Comment on above: Performed By: #### C K #### [facility] [address] [place] [address] Dr. Darline Starr Creatinine [Mass/Vol] 1.55 mg/dL Critically high 0.70-1.30 [facility] Comment on above: Performed By: #### C K #### [facility] [address] [place] [address] Dr. Darline Starr EGFR-AF GREEK 53 mL/min/1.73m2 Critically low >=60 [facility] Comment on above: Performed By: #### C K #### [facility] [address] [place] [address] Dr. Darline Starr EGFR-NON AF GREEK 43 mL/min/1.73m2 Critically low >=60 [facility] Comment on above: Performed By: #### C K #### [facility] [address] [place] [address] Dr. Darline Starr Globulin (S) [Mass/Vol] 3.5 g/dL Normal [facility] Comment on above: Performed By: #### C K #### [facility] [address] [address] [address] Darline Starr Glucose [Mass/Vol] 71 mg/dL Critically low 74-106 Th [facility] Comment on above: Performed By: #### C K #### [facility] [address] [place] [address] Dr. Darline Starr Potassium [Moles/Vol] 4.0 mmol/L Normal 3.5-5.1 [facility] Comment on above: Performed By: #### C K #### [facility] [address] [place] [address] Dr. Darline Starr Protein [Mass/Vol] 6.0 g/dL Critically low 6.4-8.2 Th [facility] Comment on above: Performed By: #### C K #### [facility] [address] [place] [address] Dr. Darline Starr Sodium [Moles/Vol] 138 mmol/L Normal 136-[address] [facility] Comment on above: Performed By: #### C K #### [facility] [address] [place] [address] Dr. Darline Starr Urea nitrogen [Mass/Vol] 25.0 mg/dL Critically high 7.0-18.0 [facility] Comment on above: Performed By: #### C K #### [facility] [address] [place] [address] Dr. Darline Starr Urea nitrogen/Creatinine [Mass ratio] 16.1 mg/mg Normal [facility] Comment on above: Performed By: #### C K #### [facility] [address] [place] [address] Dr. Darline Starr HEMOGLOBIN AND HEMATOCRITon 10-23-2022 Hematocrit (Bld) [Volume fraction] 33.8 % Critically low 42.0-54.0 [facility] Comment on above: Performed By: #### M ALBCRL #### [facility] [address] [place] [address] Dr. Darline Starr Hemoglobin (Bld) [Mass/Vol] 11.3 g/dL Critically low 14.0-18.0 [facility] Comment on above: Performed By: #### M ALBCRL #### [facility] [address] [place] [address] Dr. Darline Satrr POINT OF CARE GLUCOSEon 02-18 Glucose [Mass/Vol] 135 mg/dL Critically high 74-106 [facility] Comment on above: Performed By: #### P OCGLUC #### [facility] [address] [place] [address] Dr. Darline Starr Glucose [Mass/Vol] 138 mg/dL Critically high 74-106 [facility] Comment on above: Performed By: #### P THINT #### [facility] [address] [place] [address] Dr. Darline Starr Glucose [Mass/Vol] 191 mg/dL Critically high 74-106 [facility] Comment on above: Performed By: #### P OCGLUC #### [facility] [address] [place] [address] Dr. Darline Starr PROF 14(COMP METB)on 022 Albumin [Mass/Vol] 2.5 g/dL Critically low 3.4-5.0 [facility] Comment on above: Performed By: #### C K #### [facility] [address] [place] [address] Dr. Darline Starr Albumin/Globulin [Mass ratio] 0.7 {ratio} Normal [facility] Comment on above: Performed By: #### C K #### [facility] [address] [place] [address] Dr. Draline Starr ALP [Catalytic activity/Vol] 84 U/L Normal 46-116 [facility] Comment on above: Performed By: #### C K #### [facility] [address] [address] [address] Darline Starr ALT [Catalytic activity/Vol] 29 U/L Normal 16-63 [facility] Comment on above: Performed By: #### C K #### [facility] [address] [address] [address] Darline Starr Anion gap [Moles/Vol] 11.4 mmol/L Normal [facility] Comment on above: Performed By: #### C K #### [facility] [address] [address] [address] Darline Starr AST [Catalytic activity/Vol] 21 U/L Normal 15-37 [facility] Comment on above: Performed By: #### C K #### [facility] [address] [place] [address] Dr. Darline Starr Bilirubin [Mass/Vol] 0.3 mg/dL Normal 0.2-1.0 [facility] Comment on above: Performed By: #### C K #### [facility] [address] [place] [address] Dr. Darline Starr Calcium [Mass/Vol] 8.4 mg/dL Critically low 8.5-10.1 [facility] Comment on above: Performed By: #### C K #### [facility] [address] [place] [address] Dr. Darline Starr Chloride [Moles/Vol] 104 mmol/L Normal 98-107 [facility] Comment on above: Performed By: #### C K #### [facility] [address] [place] [address] Dr. Darline Starr CO2 [Moles/Vol] 25.3 mmol/L Normal 21.0-32.0 [facility] Comment on above: Performed By: #### C K #### [facility] [address] [place] [address] Dr. Darline Starr Creatinine [Mass/Vol] 1.60 mg/dL Critically high 0.70-1.30 [facility] Comment on above: Performed By: #### C K #### [facility] [address] [address] [address] Darline Starr EGFR-AF GREEK 51 mL/min/1.73m2 Critically low >=60 [facility] Comment on above: Performed By: #### C K #### [facility] [address] [address] [address] Darline Starr EGFR-NON AF GREEK 42 mL/min/1.73m2 Critically low >=60 [facility] Comment on above: Performed By: #### C K #### [facility] [address] [address] [address] Darline Starr Globulin (S) [Mass/Vol] 3.8 g/dL Normal [facility] Comment on above: Performed By: #### C K #### [facility] [address] [address] [address] Darline Starr Glucose [Mass/Vol] 138 mg/dL Critically high 74-106 [facility] Comment on above: Performed By: #### C K #### [facility] [address] [address] [address] Darline Starr Potassium [Moles/Vol] 3.7 mmol/L Normal 3.5-5.1 [facility] Comment on above: Performed By: #### C K #### [facility] [address] [address] [address] Darline Starr Protein [Mass/Vol] 6.3 g/dL Critically low 6.4-8.2 Th [facility] Comment on above: Performed By: #### C K #### [facility] [address] [address] [address] Darline Starr Sodium [Moles/Vol] 137 mmol/L Normal 136-[address] [facility] Comment on above: Performed By: #### C K #### [facility] [address] [address] [address] Darline Starr Urea nitrogen [Mass/Vol] 22.0 mg/dL Critically high 7.0-18.0 [facility] Comment on above: Performed By: #### C K #### [facility] [address] [place] [address] Dr. Darline Starr Urea nitrogen/Creatinine [Mass ratio] 13.8 mg/mg Normal [facility] Comment on above: Performed By: #### C K #### [facility] [address] [place] [address] Dr. Darline Starr CBC AUTO DIFFon 03-10-2022 BASO # 0.0 103/ul Normal 0.0-0.1 [facility] Comment on above: Performed By: #### M ALBCRL #### [facility] [address] [place] [address] Dr. Darline Starr Basophils/100 WBC (Bld) 0.2 % Normal 0.2-2.0 [facility] Comment on above: Performed By: #### M ALBCRL #### [facility] [address] [place] [address] Dr. Darline Starr EO # 0.2 103/ul Normal 0.0-0.7 [facility] Comment on above: Performed By: #### M ALBCRL #### [facility] [address] [place] [address] Dr. Darline Starr Eosinophils/100 WBC (Bld) 1.4 % Normal 0.9-7.0 [facility] Comment on above: Performed By: #### M ALBCRL #### [facility] [address] [place] [address] Dr. Darline Starr Erythrocyte distribution width (RBC) [Ratio] 13.4 % Normal 11.0-15.0 [facility] Comment on above: Performed By: #### M ALBCRL #### [facility] [address] [place] [address] Dr. Darline Starr Hematocrit (Bld) [Volume fraction] 38.1 % Critically low 42.0-54.0 [facility] Comment on above: Performed By: #### M ALBCRL #### [facility] [address] [place] [address] Dr. Darline Starr Hemoglobin (Bld) [Mass/Vol] 12.7 g/dL Critically low 14.0-18.0 [facility] Comment on above: Performed By: #### M ALBCRL #### [facility] [address] [address] [address] Darline Starr IG # 0.07 10e3/ul Critically high 0.00-0.03 [facility] Comment on above: Performed By: #### M ALBCRL #### [facility] [address] [address] [address] Darline Starr IG % 0.5 % Normal 0.0-0.5 [facility] Comment on above: Performed By: #### M ALBCRL #### [facility] [address] [address] [address] Darline Starr LYMPH # 1.6 103/ul Normal 1.2-3.8 [facility] Comment on above: Performed By: #### M ALBCRL #### [facility] [address] [address] [address] Darline Starr Lymphocytes/100 WBC (Bld) 12.7 % Critically low 20.5-60.0 [facility] Comment on above: Performed By: #### M ALBCRL #### [facility] [address] [address] [address] Darline Starr MANUAL DIFF REQ NO Normal [facility] Comment on above: Performed By: #### M ALBCRL #### [facility] [address] [address] [address] Darline Starr MCH (RBC) [Entitic mass] 31.8 pg Normal 25.9-34.0 [facility] Comment on above: Performed By: #### M ALBCRL #### [facility] [address] [address] [address] Darline Starr MCHC (RBC) [Mass/Vol] 33.3 g/dL Normal 29.9-35.2 [facility] Comment on above: Performed By: #### M ALBCRL #### [facility] [address] [address] [address] Darline Starr MCV (RBC) [Entitic vol] 95.5 fL Critically high 80.0-94.0 [facility] Comment on above: Performed By: #### M ALBCRL #### [facility] [address] [address] [address] Darline Starr MONO # 1.2 103/ul Critically high 0.3-0.8 [facility] Comment on above: Performed By: #### M ALBCRL #### [facility] [address] [address] [address] Darline Starr Monocytes/100 WBC (Bld) 9.6 % Normal 1.7-12.0 [facility] Comment on above: Performed By: #### M ALBCRL #### [facility] [address] [address] [address] Darline Starr NEUT # 9.6 103/ul Critically high 1.4-6.5 [facility] Comment on above: Performed By: #### M ALBCRL #### [facility] [address] [place] [address] Dr. Darline Starr Neutrophils/100 WBC (Bld) 75.6 % Critically high 43.0-75.0 [facility] Comment on above: Performed By: #### M ALBCRL #### [facility] [address] [place] [address] Dr. Darline Starr Platelet mean volume (Bld) [Entitic vol] 9.3 fL Critically low 9.5-13.5 [facility] Comment on above: Performed By: #### M ALBCRL #### [facility] [address] [place] [address] Dr. Darline Starr PLT 197 103/ul Normal 150-450 [facility] Comment on above: Performed By: #### M ALBCRL #### [facility] [address] [address] [address] Darline Starr RBC 3.99 106/ul Critically low 4.70-6.10 [facility] Comment on above: Performed By: #### M ALBCRL #### [facility] [address] [address] [address] Darline Starr WBC 12.8 103/ul Critically high 4.0-11.0 [facility] Comment on above: Performed By: #### M ALBCRL #### [facility] [address] [address] [address] ABD/PELV W CONon [...] QUIANA LEBLANC Date: 2022-03-10 06:20 Normal [facility] CULTURE URINEon 03-10-2022 CULTURE URINE Culture Observations : VERY LIGHT GROWTH OF MIXED SKIN MAT. NO POTENTIAL PATHOGENS SEEN. Normal [facility] Comment on above: Performed By: #### P OCGLUC #### [facility] [address] [place] [address] Dr. Darline Starr Covid-19 PCR (CVDTB)on 02-18 SARS-CoV-2 (COVID-19) RNA MILDRED+probe Ql (Unsp spec) Not detected Normal NOT DETECTED [facility] Comment on above: Result Comment: When [...] for this test is supported by the [place] of [employer] and Human Service's declaration that [...] used). Performed By: #### P OCGLUC #### [facility] [address] [place] [address] Dr. Darline Starr ER URINE PROFILEon 2 Bilirubin Ql (U) Negative Normal NEGATIVE [facility] Comment on above: Performed By: #### P OCGLUC #### [facility] [address] [place] [address] Dr. Darline Starr Clarity (U) CLEAR Normal CLEAR [facility] Comment on above: Performed By: #### P OCGLUC #### [facility] [address] [place] [address] Dr. Darline Starr Color (U) LT. YELLOW Normal YELLOW [facility] Comment on above: Performed By: #### P OCGLUC #### [facility] [address] [place] [address] Dr. Darline Starr ERUAHD A micrscopic examination will be performed if indicated. Normal [facility] Comment on above: Performed By: #### P OCGLUC #### [facility] [address] [place] [address] Dr. Darline Starr Glucose Ql (U) Negative Normal NEGATIVE [facility] Comment on above: Performed By: #### P OCGLUC #### [facility] [address] [place] [address] Dr. Darline Starr Hemoglobin Ql (U) TRACE-INTACT Abnormal NEGATIVE [facility] Comment on above: Performed By: #### P OCGLUC #### [facility] [address] [place] [address] Dr. Darline Starr Ketones Ql (U) Negative Normal NEGATIVE [facility] Comment on above: Performed By: #### P OCGLUC #### [facility] [address] [place] [address] Dr. Darline Starr LEUKOCYTES Negative Normal NEGATIVE [facility] Comment on above: Performed By: #### P OCGLUC #### [facility] [address] [place] [address] Dr. Darline Starr Nitrite Ql (U) Negative Normal NEGATIVE [facility] Comment on above: Performed By: #### P OCGLUC #### [facility] [address] [place] [address] Dr. Darline Starr pH (U) 6.0 [pH] Normal 5-9 [facility] Comment on above: Performed By: #### P OCGLUC #### [facility] [address] [place] [address] Dr. Darline Starr SPEC GRAVITY 1.015 Normal 1.005-<=1.025 [facility] Comment on above: Performed By: #### P OCGLUC #### [facility] [address] [place] [address] Dr. Darline Starr UA PROTEIN TRACE Normal NEGATIVE/ TRACE [facility] Comment on above: Performed By: #### P OCGLUC #### [facility] [address] [place] [address] Dr. Darline Starr UR MICRO IND INDICATED Normal [facility] [facility] Comment on above: Performed By: #### P OCGLUC #### [facility] [address] [place] [address] Dr. Darline Starr Urobilinogen Qn (U) 0.2 {Jess'U}/dL Normal 0.2 - 1. 0 [facility] Comment on above: Performed By: #### P OCGLUC #### [facility] [address] [place] [address] Dr. Darline Starr GLYCOHEMOGLOBIN A1Con 2021 ADA RECOMMENDATION SEE BELOW Normal [facility] Comment on above: Result Comment: ADA RECOMMENDED LIMIT 4.0 - 6.0 ADA THERAPEUTIC TARGET < 7.0 ACTION SUGGESTED > 7.0 Performed By: #### P OCGLUC #### [facility] [address] [address] [address] Darline Starr Glucose [Mass/Vol] 131 mg/dL Normal [facility] Comment on above: Performed By: #### P OCGLUC #### [facility] [address] [address] [address] Darline Starr HbA1c (Bld) [Mass fraction] 6.2 % Normal 4.5-6.2 [facility] Comment on above: Performed By: #### P OCGLUC #### [facility] [address] [place] [address] Dr. Darline Starr HEMOGLOBIN AND HEMATOCRITon 03-10-2022 Hematocrit (Bld) [Volume fraction] 35.3 % Critically low 42.0-54.0 [facility] Comment on above: Performed By: #### P THINT #### [facility] [address] [place] [address] Dr. Darline Starr Hemoglobin (Bld) [Mass/Vol] 11.8 g/dL Critically low 14.0-18.0 [facility] Comment on above: Performed By: #### P THINT #### [facility] [address] [place] [address] Dr. Dalrine Starr Hematocrit (Bld) [Volume fraction] 34.0 % Critically low 42.0-54.0 [facility] Comment on above: Performed By: #### C K #### [facility] [address] [place] [address] Dr. Darline Starr Hemoglobin (Bld) [Mass/Vol] 11.2 g/dL Critically low 14.0-18.0 [facility] Comment on above: Performed By: #### C K #### [facility] [address] [address] [address] Darline Starr Hematocrit (Bld) [Volume fraction] 34.7 % Critically low 42.0-54.0 [facility] Comment on above: Performed By: #### H GBHCT #### [facility] [address] [address] [address] Darline Starr Hemoglobin (Bld) [Mass/Vol] 11.7 g/dL Critically low 14.0-18.0 [facility] Comment on above: Performed By: #### H GBHCT #### [facility] [address] [address] [address] Darline Starr POINT OF CARE GLUCOSEon 02-18 Glucose [Mass/Vol] 245 mg/dL Critically high [facility] Comment on above: Performed By: #### P OCGLUC #### [facility] [address] [place] [address] Dr. Darline Starr Glucose [Mass/Vol] 171 mg/dL Critically high [facility] Comment on above: Performed By: #### M ALBCRL #### [facility] [address] [place] [address] Dr. Darline Starr Glucose [Mass/Vol] 67 mg/dL Critically low -106 [facility] Comment on above: Performed By: #### P OCGLUC #### [facility] [address] [place] [address] Dr. Darline Starr Glucose [Mass/Vol] 65 mg/dL Critically low -106 [facility] Comment on above: Performed By: #### P OCGLUC #### [facility] [address] [place] [address] Dr. Darline Starr Glucose [Mass/Vol] 264 mg/dL Critically high [facility] Comment on above: Performed By: #### P OCGLUC #### [facility] [address] [place] [address] Dr. Darline Starr PROF CHEM 8 (BAS METB)on Anion gap [Moles/Vol] 10.2 mmol/L Normal [facility] Comment on above: Performed By: #### P THINT #### [facility] [address] [address] [address] Darline Starr Calcium [Mass/Vol] 8.5 mg/dL Normal 8.5-10.[address] [facility] Comment on above: Performed By: #### P THINT #### [facility] [address] [address] [address] Darline Starr Chloride [Moles/Vol] 104 mmol/L Normal 98-107 [facility] Comment on above: Performed By: #### P THINT #### [facility] [address] [address] [address] Darline Starr CO2 [Moles/Vol] 27.7 mmol/L Normal 21.0-32.0 [facility] Comment on above: Performed By: #### P THINT #### [facility] [address] [address] [address] Darline Starr Creatinine [Mass/Vol] 1.53 mg/dL Critically high 0.70-1.30 [facility] Comment on above: Performed By: #### P THINT #### [facility] [address] [address] [address] Darline Starr EGFR-AF GREEK 53 mL/min/1.73m2 Critically low >=60 [facility] Comment on above: Performed By: #### P THINT #### [facility] [address] [address] [address] Darline Starr EGFR-NON AF GREEK 44 mL/min/1.73m2 Critically low >=60 [facility] Comment on above: Performed By: #### P THINT #### [facility] [address] [address] [address] Darline Starr Glucose [Mass/Vol] 117 mg/dL Critically high 74-106 [facility] Comment on above: Performed By: #### P THINT #### [facility] [address] [address] [address] Darline Starr Potassium [Moles/Vol] 3.9 mmol/L Normal 3.5-5.1 [facility] Comment on above: Performed By: #### P THINT #### [facility] [address] [address] [address] Darline Starr Sodium [Moles/Vol] 138 mmol/L Normal 136-[address] [facility] Comment on above: Performed By: #### P THINT #### [facility] [address] [address] [address] Darline Starr Urea nitrogen [Mass/Vol] 21.0 mg/dL Critically high 7.0-18.0 [facility] Comment on above: Performed By: #### P THINT #### [facility] [address] [address] [address] Darline Starr Urea nitrogen/Creatinine [Mass ratio] 13.7 mg/mg Normal [facility] Comment on above: Performed By: #### P THINT #### [facility] [address] [place] [address] Dr. Darline Starr PROTIMEon 03-10-2022 INR Coag (PPP) [Relative time] 1.02 {INR} Normal [facility] Comment on above: Performed By: #### M ALBCRL #### [facility] [address] [place] [address] Dr. Darline Starr INR GUIDELINES SEE BELOW Normal [facility] Comment on above: Result Comment: JENISE RED INR: 2.0 - 3.0 CONDITIONS NOT LISTED BELOW 2.5 - 3.5 FOR PROSTHETIC HEART VALVE REPLACEMENT 2.5 - 3.5 RECURRENT THROMBOSIS Performed By: #### M ALBCRL #### [facility] [address] [place] [address] Dr. Darline Starr PT Coag (PPP) [Time] 11.0 s Normal 9.0-11.6 [facility] Comment on above: Performed By: #### M ALBCRL #### [facility] [address] [place] [address] Dr. Darline Starr PTTon 03-10-2022 aPTT Coag (Bld) [Time] 31.8 s Normal 22.3-36.2 Th [facility] Comment on above: Performed By: #### M ALBCRL #### [facility] [address] [address] [address] Darline Starr URINE MICROSCOPIC ONLYon BACTERIA SMALL Abnormal NONE SEEN [facility] Comment on above: Performed By: #### P OCGLUC #### [facility] [address] [place] [address] Dr. Darline Starr Bacteria identified Cx Nom (U) INDICATED Normal [facility] Comment on above: Performed By: #### P OCGLUC #### [facility] [address] [place] [address] Dr. Darline Starr CAST NONE SEEN Normal NONE SEEN [facility] Comment on above: Performed By: #### P OCGLUC #### [facility] [address] [place] [address] Dr. Darline Starr Crystals LM Nom (Urine sed) NONE SEEN Normal NONE SEEN [facility] Comment on above: Performed By: #### P OCGLUC #### [facility] [address] [place] [address] Dr. Darline Starr Epithelial cells LM Ql (Urine sed) RARE Normal NONE SEEN /RARE [facility] Comment on above: Performed By: #### P OCGLUC #### [facility] [address] [place] [address] Dr. Darline Starr MUCOUS NONE SEEN Normal NONE SEEN [facility] Comment on above: Performed By: #### P OCGLUC #### [facility] [address] [place] [address] Dr. Darline Starr RBC 2-5 Abnormal 0-2 [facility] Comment on above: Performed By: #### P OCGLUC #### [facility] [address] [place] [address] Dr. Darline Starr WBC 5-10 Abnormal NONE SEEN [facility] Comment on above: Performed By: #### P OCGLUC #### [facility] [address] [place] [address] Dr. Darline Starr ICD REMOTE CHECKon 2 AV Delay Adaptive Paced Minimum (ms) 170 ms [facility] AV Delay Adaptive Sensed Minimum (ms) 120 ms [facility] AV Delay Paced (ms) 90 ms [facility] AV Delay Sensed (ms) 90 ms [facility] Battery Voltage 3.01 V [facility] Johan LV Pacing Amplitude (volts) 2.5 V [facility] Johan LV Pacing Polarity BI [facility] Johan LV Pacing Pulse Width (ms) 0.5 ms [facility] Johan RA Pacing Amplitude (volts) 2 V [facility] Johan RA Pacing Polarity BI [facility] Johan RA Pacing Pulse Width (ms) 0.5 ms [facility] Johan RA Sensing Amplitude (mvolts) 0.5 mV [facility] Johan RA Sensing Polarity BI [facility] Johan RV Pacing Amplitude (volts) 1.5 V [facility] Johan RV Pacing Polarity BI [facility] Johan RV Pacing Pulse Width (ms) 0.5 ms [facility] Johan RV Sensing Amplitude (mvolts) 0.5 mV [facility] Johan RV Sensing Polarity BI [facility] Detection Configuration (Vent) 1 - Zone [facility] ICD FastVT DetectionStatus DISABLED [facility] ICD-AMS EPISODES 170 {beats}/min [facility] ICD-ATP Episodes (Vent) 0 [facility] ICD-Device Mfg Other [facility] ICD-Fast Ventricular Tachycardia 18 [facility] ICD-Fast Ventricular Tachycardia 1 [facility] ICD-LEADIMPEDANCEATRIA L 330 ohm [facility] ICD-Percent Pacing (Atrial) 78 % [facility] ICD-Shocks Aborted (Vent) 0 [facility] [id number] 0 [facility] ICD-SHOCKSABORTED 0 [facility] ICD-SHOCKSDELIVEREDVEN TRICULAR 0 [facility] ICD-Ventricular Fibrillation 0 [facility] ICD-VVDELAY_MS 45 ms [facility] Implant Date 10/18/2021 [facility] Lead Impedance (LV) 790 ohm [facility] Lead Impedance (RV) 400 ohm [facility] Lead Impedance High Voltage 61 ohm [facility] Lead1 Mfg STJ [facility] Lead2 Mfg STJ [facility] Lead3 Mfg STJ [facility] Location LV [facility] Location RA [facility] Location RV [facility] Lower Rate (bpm) 70 {beats}/min [facility] Max Sensor Rate (bpm) 110 {beats}/min [facility] MDT_PROG_TACHY_ZONE_DE TECTIONS_STATUS ENABLED [facility] Model [id number] [place] HF [facility] Model 1458Q Quartet [facility] Model 2088TC Tendril STS [facility] Model 7122Q Durata SJ4 [facility] Pacing Mode DDDR [facility] Serial Number [id number] [facility] Serial Number [id number] [facility] Serial Number [id number] [facility] Serial Number [id number] [facility] Test Charge Energy 40 J [facility] Therapy Status (Vent) Enabled [facility] Thresh LV Capture Amplitude (volts) 1 V [facility] Thresh LV Capture Duration (ms) 0.5 ms [facility] Thresh RA Capture Amplitude (volts) 0.375 V [facility] Thresh RA Capture Duration (ms) 0.5 ms [facility] Thresh RA Sensing Amplitude (mvolts) 2 mV [facility] Thresh RV Capture Amplitude (VOLTS) 0.5 V [facility] Thresh RV Capture Duration (MS) 0.5 ms [facility] Thresh RV Sensing Amplitude (MVOLTS) 12 mV [facility] Tracking Rate (bpm) 130 {beats}/min [facility] VF Zone Detection Interval 300 ms [facility] VF Zone Therapy Configuration 0 ATP(s) + 6 Shock(s) [facility] No Panel Informationon 02-12 BLANK _ [facility] Implant Date 03/23/2014 [facility] MICROALBUMIN/ CREATININE RAT IOon 02-09-2022 Albumin, Urine 3.0 ug/mL Normal Not Estab. The [facility] Comment on above: Performed By: #### M ALBCRL #### [facility] [address] [address] [address] Darline Starr Albumin/ Creatinine Ratio 4 mg/g creat Normal 0-29 [facility] Comment on above: Result Comment: Norm al: 0 - 29 Moderately increased: 30 - 300 Severely increased: >300 Performed By: #### M ALBCRL #### [facility] [address] [place], [place] [address] Dr. Darline Starr Creatinine, Urine 73.0 mg/dL Normal Not Estab. [facility] Comment on above: Performed By: #### M ALBCRL #### [facility] [address] [address] [address] Darline Starr CBC AUTO DIFFon 02-08-2022 BASO # 0.1 103/ul Normal 0.0-0.1 [facility] Comment on above: Performed By: #### P THINT #### [facility] [address] [place] [address] Dr. Darline Starr Basophils/100 WBC (Bld) 0.8 % Normal 0.2-2.0 [facility] Comment on above: Performed By: #### P THINT #### [facility] [address] [place] [address] Dr. Darline Starr EO # 0.2 103/ul Normal 0.0-0.7 [facility] Comment on above: Performed By: #### P THINT #### [facility] [address] [place] [address] Dr. Darline Starr Eosinophils/100 WBC (Bld) 2.2 % Normal 0.9-7.0 [facility] Comment on above: Performed By: #### P THINT #### [facility] [address] [place] [address] Dr. Darline Starr Erythrocyte distribution width (RBC) [Ratio] 13.9 % Normal 11.0-15.0 [facility] Comment on above: Performed By: #### P THINT #### [facility] [address] [place] [address] Dr. Darline Starr Hematocrit (Bld) [Volume fraction] 42.4 % Normal 42.0-54.0 [facility] Comment on above: Performed By: #### P THINT #### [facility] [address] [place] [address] Dr. Darline Starr Hemoglobin (Bld) [Mass/Vol] 14.0 g/dL Normal 14.0-18.0 [facility] Comment on above: Performed By: #### P THINT #### [facility] [address] [place] [address] Dr. Darline Starr IG # 0.03 10e3/ul Normal 0.00-0.03 [facility] Comment on above: Performed By: #### P THINT #### [facility] [address] [place] [address] Dr. Darline Starr IG % 0.4 % Normal 0.0-0.5 [facility] Comment on above: Performed By: #### P THINT #### [facility] [address] [place] [address] Dr. Darline Starr LYMPH # 1.4 103/ul Normal 1.2-3.8 [facility] Comment on above: Performed By: #### P THINT #### [facility] [address] [place] [address] Dr. Darline Starr Lymphocytes/100 WBC (Bld) 18.3 % Critically low 20.5-60.0 [facility] Comment on above: Performed By: #### P THINT #### [facility] [address] [place] [address] Dr. Darline Starr MANUAL DIFF REQ NO Normal [facility] Comment on above: Performed By: #### P THINT #### [facility] [address] [place] [address] Dr. Darline Starr MCH (RBC) [Entitic mass] 32.0 pg Normal 25.9-34.0 [facility] Comment on above: Performed By: #### P THINT #### [facility] [address] [place] [address] Dr. Darline Starr MCHC (RBC) [Mass/Vol] 33.0 g/dL Normal 29.9-35.2 [facility] Comment on above: Performed By: #### P THINT #### [facility] [address] [place] [address] Dr. Darline Starr MCV (RBC) [Entitic vol] 97.0 fL Critically high 80.0-94.0 [facility] Comment on above: Performed By: #### P THINT #### [facility] [address] [place] [address] Dr. Darline Starr MONO # 0.6 103/ul Normal 0.3-0.8 [facility] Comment on above: Performed By: #### P THINT #### [facility] [address] [place] [address] Dr. Darline Starr Monocytes/100 WBC (Bld) 7.4 % Normal 1.7-12.0 [facility] Comment on above: Performed By: #### P THINT #### [facility] [address] [place] [address] Dr. Darline Starr NEUT # 5.6 103/ul Normal 1.4-6.5 [facility] Comment on above: Performed By: #### P THINT #### [facility] [address] [place] [address] Dr. Darline Starr Neutrophils/100 WBC (Bld) 70.9 % Normal 43.0-75.0 [facility] Comment on above: Performed By: #### P THINT #### [facility] [address] [place] [address] Dr. Darline Starr Platelet mean volume (Bld) [Entitic vol] 9.3 fL Critically low 9.5-13.5 [facility] Comment on above: Performed By: #### P THINT #### [facility] [address] [place] [address] Dr. Darline Starr PLT 188 103/ul Normal 150-450 [facility] Comment on above: Performed By: #### P THINT #### [facility] [address] [place] [address] Dr. Darline Starr RBC 4.37 106/ul Critically low 4.70-6.10 [facility] Comment on above: Performed By: #### P THINT #### [facility] [address] [place] [address] Dr. Darline Starr WBC 7.9 103/ul Normal 4.0-11.0 [facility] Comment on above: Performed By: #### P THINT #### [facility] [address] [place] [address] Dr. Darline Starr RENAL FUNCTION PANELon 02-08 Albumin [Mass/Vol] 3.4 g/dL Normal 3.4-5.[address] [facility] Comment on above: Performed By: #### P OCGLUC #### [facility] [address] [place] [address] Dr. Darline Starr Calcium [Mass/Vol] 8.7 mg/dL Normal 8.5-10.[address] [facility] Comment on above: Performed By: #### P OCGLUC #### [facility] [address] [address] [address] Darline Starr Chloride [Moles/Vol] 104 mmol/L Normal 98-107 [facility] Comment on above: Performed By: #### P OCGLUC #### [facility] [address] [address] [address] Darline Starr CO2 [Moles/Vol] 27.3 mmol/L Normal 21.0-32.0 [facility] Comment on above: Performed By: #### P OCGLUC #### [facility] [address] [place] [address] Dr. Darline Starr Creatinine [Mass/Vol] 1.63 mg/dL Critically high 0.70-1.30 [facility] Comment on above: Performed By: #### P OCGLUC #### [facility] [address] [address] [address] Darline Starr EGFR-AF GREEK 50 mL/min/1.73m2 Critically low >=60 [facility] Comment on above: Performed By: #### P OCGLUC #### [facility] [address] [place] [address] Dr. Darline Starr EGFR-NON AF GREEK 41 mL/min/1.73m2 Critically low >=60 [facility] Comment on above: Performed By: #### P OCGLUC #### [facility] [address] [address] [address] Darline Starr Glucose [Mass/Vol] 121 mg/dL Critically high 74-106 [facility] Comment on above: Performed By: #### P OCGLUC #### [facility] [address] [place] [address] Dr. Darline Starr Phosphate [Mass/Vol] 3.4 mg/dL Normal 2.6-4.7 [facility] Comment on above: Performed By: #### P OCGLUC #### [facility] [address] [place] [address] Dr. Darline Starr Potassium [Moles/Vol] 4.2 mmol/L Normal 3.5-5.1 [facility] Comment on above: Performed By: #### P OCGLUC #### [facility] [address] [address] [address] Darline Starr Sodium [Moles/Vol] 139 mmol/L Normal 136-145 [facility] Comment on above: Performed By: #### P OCGLUC #### [facility] [address] [address] [address] Darline Starr Urea nitrogen [Mass/Vol] 21.0 mg/dL Critically high 7.0-18.0 [facility] Comment on above: Performed By: #### P OCGLUC #### [facility] [address] [address] [address] Darline Starr ICD REMOTE CHECKon 2 AV Delay Adaptive Paced Minimum (ms) 170 ms [facility] AV Delay Adaptive Sensed Minimum (ms) 120 ms [facility] AV Delay Paced (ms) 90 ms [facility] AV Delay Sensed (ms) 90 ms [facility] Battery Voltage 3.02 V [facility] Johan LV Pacing Amplitude (volts) 2.5 V [facility] Johan LV Pacing Polarity BI [facility] Johan LV Pacing Pulse Width (ms) 0.5 ms [facility] Johan RA Pacing Amplitude (volts) 2 V [facility] Johan RA Pacing Polarity BI [facility] Johan RA Pacing Pulse Width (ms) 0.5 ms [facility] Johan RA Sensing Amplitude (mvolts) 0.5 mV [facility] Johan RA Sensing Polarity BI [facility] Johan RV Pacing Amplitude (volts) 1.5 V [facility] Johan RV Pacing Polarity BI [facility] Johan RV Pacing Pulse Width (ms) 0.5 ms [facility] Johan RV Sensing Amplitude (mvolts) 0.5 mV [facility] Johan RV Sensing Polarity BI [facility] Detection Configuration (Vent) 1 - Zone [facility] ICD FastVT DetectionStatus DISABLED [facility] ICD-AMS EPISODES 170 {beats}/min [facility] ICD-ATP Episodes (Vent) 0 [facility] ICD-Device Mfg Other [facility] ICD-Fast Ventricular Tachycardia 18 [facility] ICD-Fast Ventricular Tachycardia 1 [facility] ICD-LEADIMPEDANCEATRIA L 330 ohm [facility] ICD-Percent Pacing (Atrial) 78 % [facility] ICD-Shocks Aborted (Vent) 0 [facility] [id number] 0 [facility] ICD-SHOCKSABORTED 0 [facility] ICD-SHOCKSDELIVEREDVEN TRICULAR 0 [facility] ICD-Ventricular Fibrillation 0 [facility] ICD-VVDELAY_MS 45 ms [facility] Implant Date 10/18/2021 [facility] Lead Impedance (LV) 800 ohm [facility] Lead Impedance (RV) 440 ohm [facility] Lead Impedance High Voltage 61 ohm [facility] Lead1 Mfg STJ [facility] Lead2 Mfg STJ [facility] Lead3 Mfg STJ [facility] Location LV [facility] Location RA [facility] Location RV [facility] Lower Rate (bpm) 70 {beats}/min [facility] Max Sensor Rate (bpm) 110 {beats}/min [facility] MDT_PROG_TACHY_ZONE_DE TECTIONS_STATUS ENABLED [facility] Model [id number] [place] HF [facility] Model 1458Q Quartet [facility] Model 2088TC Tendril STS [facility] Model 7122Q Durata SJ4 [facility] d [facility] Pacing Mode DDDR [facility] Serial Number [id number] [facility] Serial Number [id number] [facility] [facility] Serial Number [id number] [facility] Serial Number [id number] [facility] Test Charge Energy 40 J [facility] Therapy Status (Vent) Enabled [facility] Thresh LV Capture Amplitude (volts) 1 V [facility] Thresh LV Capture Duration (ms) 0.5 ms [facility] Thresh RA Capture Amplitude (volts) 0.375 V [facility] Thresh RA Capture Duration (ms) 0.5 ms [facility] Thresh RA Sensing Amplitude (mvolts) 2 mV [facility] Thresh RV Capture Amplitude (VOLTS) 0.5 V [facility] Thresh RV Capture Duration (MS) 0.5 ms [facility] Thresh RV Sensing Amplitude (MVOLTS) 12 mV [facility] Tracking Rate (bpm) 130 {beats}/min [facility] VF Zone Detection Interval 300 ms [facility] VF Zone Therapy Configuration 0 ATP(s) + 6 Shock(s) [facility] No Panel Informationon 12-29 BLANK _ [facility] Implant Date 03/23/2014 [facility] ICD CLINIC CHECKon AV Delay Adaptive Paced Minimum (ms) 170 ms [facility] AV Delay Adaptive Rate Maximum (bpm) 130 {beats}/min [facility] AV Delay Adaptive Rate Minimum (bpm) 90 {beats}/min [facility] AV Delay Adaptive Sensed Minimum (ms) 120 ms [facility] AV Delay Adaptive Status Medium [facility] AV Delay Paced (ms) 90 ms [facility] AV Delay Sensed (ms) 90 ms [facility] Johan LV Pacing Amplitude (volts) 2.5 V [facility] Johan LV Pacing Polarity BI [facility] Johan LV Pacing Pulse Width (ms) 0.5 ms [facility] Johan RA Pacing Amplitude (volts) 2 V [facility] Johan RA Pacing Polarity BI [facility] Johan RA Pacing Pulse Width (ms) 0.5 ms [facility] Johan RA Sensing Amplitude (mvolts) 0.5 mV [facility] Johan RA Sensing Blanking Period (ms) 110 ms [facility] Johan RA Sensing Polarity BI [facility] Johan RA Sensing Refractory Period (ms) 190 ms [facility] Johan RV Pacing Amplitude (volts) 1.5 V [facility] Johan RV Pacing Polarity BI [facility] Johan RV Pacing Pulse Width (ms) 0.5 ms [facility] Johan RV Sensing Amplitude (mvolts) 0.5 mV [facility] Johan RV Sensing Blanking Period (ms) 44 ms [facility] Johan RV Sensing Polarity BI [facility] Detection Configuration (Vent) 1 - Zone [facility] ICD FastVT DetectionStatus DISABLED [facility] ICD-AMS EPISODES 170 {beats}/min [facility] ICD-Johan RV Sensing Refractory Period (ms) 250 ms [facility] ICD-Device Mfg Other [facility] ICD-FALLBACKRATE_BPM 70 {beats}/min [facility] ICD-Hysteresis Rate Off [facility] ICD-LEADIMPEDANCEATRIA L 337.5 ohm [facility] ICD-Percent Pacing (Atrial) 78 % [facility] ICD-Percent Pacing (Vent) 98 % [facility] ICD-PMT Intervention Atrial Pace [facility] ICD-PVC Intervention Off [facility] ICD-Rate Modulation Acceleration Reaction Fast [facility] ICD-Rate Modulation Deceleration Medium [facility] ICD-Rate Modulation [place] Auto (+2) [facility] ICD-Rate Modulation Threshold Auto (-0.5) [facility] ICD-Rhythm Normal Sinus Rhythm [facility] ICD-Shocks Aborted (Vent) 0 [facility] [id number] 0 [facility] ICD-SHOCKSABORTED 0 [facility] ICD-SHOCKSDELIVEREDVEN TRICULAR 0 [facility] Implant Date 10/18/2021 [facility] Lead Impedance (LV) 800 ohm [facility] Lead Impedance (RV) 412.5 ohm [facility] Lead Impedance High Voltage 57.375 [facility] Lead1 Mfg STJ [facility] Lead2 Mfg STJ [facility] Lead3 Mfg STJ [facility] Location LV [facility] Location RA [facility] Location RV [facility] Lower Rate (bpm) 70 {beats}/min [facility] Max Sensor Rate (bpm) 110 {beats}/min [facility] MDT_PROG_TACHY_ZONE_DE TECTIONS_STATUS ENABLED [facility] Model [id number] [place] HF [facility] Model 1458Q Quartet [facility] Model 2088TC Tendril STS [facility] Model 7122Q [place] SJ4 [facility] Pacemaker Dependent? NO [facility] Pacing Mode DDDR [facility] Serial Number [id number] [facility] Serial Number [id number] [facility] Serial Number [id number] [facility] Serial Number [id number] [facility] Therapy Status (Vent) Enabled [facility] Thresh RA Capture Amplitude (volts) 0.375 V [facility] Thresh RA Capture Duration (ms) 0.5 ms [facility] Thresh RA Sensing Amplitude (mvolts) 2 mV [facility] Thresh RV Capture Amplitude (VOLTS) 0.5 V [facility] Thresh RV Capture Duration (MS) 0.5 ms [facility] Thresh RV Sensing Amplitude (MVOLTS) 12 mV [facility] Tracking Rate (bpm) 130 {beats}/min [facility] VF Zone Detection Interval 300 ms [facility] VF Zone Therapy Configuration 1 ATP(s) + 6 Shock(s) [facility] No Panel Informationon 12-21 BLANK _ [facility] Implant Date 03/23/2014 [facility] ICD REMOTE CHECKon AV Delay Adaptive Paced Minimum (ms) 170 ms [facility] AV Delay Adaptive Sensed Minimum (ms) 120 ms [facility] AV Delay Paced (ms) 90 ms [facility] AV Delay Sensed (ms) 90 ms [facility] Battery Voltage 3.05 V [facility] Johan LV Pacing Amplitude (volts) 2.5 V [facility] Johan LV Pacing Polarity BI [facility] Johan LV Pacing Pulse Width (ms) 0.5 ms [facility] Johan RA Pacing Amplitude (volts) 2 V [facility] Johan RA Pacing Polarity BI [facility] Johan RA Pacing Pulse Width (ms) 0.5 ms [facility] Johan RA Sensing Amplitude (mvolts) 0.5 mV [facility] Johan RA Sensing Polarity BI [facility] Johan RV Pacing Amplitude (volts) 1.5 V [facility] Johan RV Pacing Polarity BI [facility] Johan RV Pacing Pulse Width (ms) 0.5 ms [facility] Johan RV Sensing Amplitude (mvolts) 0.3 mV [facility] Johan RV Sensing Polarity BI [facility] Detection Configuration (Vent) 1 - Zone [facility] ICD FastVT DetectionStatus DISABLED [facility] ICD-AMS EPISODES 170 {beats}/min [facility] ICD-ATP Episodes (Vent) 0 [facility] ICD-Device Mfg Other [facility] ICD-LEADIMPEDANCEATRIA L 340 ohm [facility] ICD-Percent Pacing (Atrial) 77 % [facility] ICD-Shocks Aborted (Vent) 0 [facility] [id number] 0 [facility] ICD-SHOCKSABORTED 0 [facility] ICD-SHOCKSDELIVEREDVEN TRICULAR 0 [facility] ICD-VVDELAY_MS 45 ms [facility] Implant Date 10/18/2021 [facility] Lead Impedance (LV) 800 ohm [facility] Lead Impedance (RV) 460 ohm [facility] Lead Impedance High Voltage 57 ohm [facility] Lead1 Mfg STJ [facility] Lead2 Mfg STJ [facility] Lead3 Mfg STJ [facility] Location LV [facility] Location RA [facility] Location RV [facility] Lower Rate (bpm) 70 {beats}/min [facility] Max Sensor Rate (bpm) 110 {beats}/min [facility] MDT_PROG_TACHY_ZONE_DE TECTIONS_STATUS ENABLED [facility] Model [id number] [place] HF [facility] Model 1458Q Quartet [facility] Model 2088TC Tendril STS [facility] Model 7122Q Dur[place] SJ4 [facility] Pacing Mode DDDR [facility] Serial Number [id number] [facility] Serial Number [id number] [facility] Serial Number [id number] [facility] Serial Number [id number] [facility] Test Charge Energy 40 J [facility] Therapy Status (Vent) Enabled [facility] Thresh LV Capture Amplitude (volts) 1 V [facility] Thresh LV Capture Duration (ms) 0.5 ms [facility] Thresh RA Capture Amplitude (volts) 0.375 V [facility] Thresh RA Capture Duration (ms) 0.5 ms [facility] Thresh RA Sensing Amplitude (mvolts) 1 mV [facility] Thresh RV Capture Amplitude (VOLTS) 0.5 V [facility] Thresh RV Capture Duration (MS) 0.5 ms [facility] Thresh RV Sensing Amplitude (MVOLTS) 1.3 mV [facility] Tracking Rate (bpm) 130 {beats}/min [facility] VF Zone Detection Interval 300 ms [facility] VF Zone Therapy Configuration 0 ATP(s) + 6 Shock(s) [facility] No Panel Informationon 12-18 BLANK _ [facility] Implant Date 03/23/2014 [facility] ICD REMOTE CHECKon 2 AV Delay Adaptive Paced Minimum (ms) 170 ms [facility] AV Delay Adaptive Sensed Minimum (ms) 120 ms [facility] AV Delay Paced (ms) 90 ms [facility] AV Delay Sensed (ms) 90 ms [facility] Battery Voltage 3.07 V [facility] Johan LV Pacing Amplitude (volts) 2.5 V [facility] Johan LV Pacing Polarity BI [facility] Johan LV Pacing Pulse Width (ms) 0.5 ms [facility] Johan RA Pacing Amplitude (volts) 2 V [facility] Johan RA Pacing Polarity BI [facility] Johan RA Pacing Pulse Width (ms) 0.5 ms [facility] Johan RA Sensing Amplitude (mvolts) 0.5 mV [facility] Johan RA Sensing Polarity BI [facility] Johan RV Pacing Amplitude (volts) 1.5 V [facility] Johan RV Pacing Polarity BI [facility] Johan RV Pacing Pulse Width (ms) 0.5 ms [facility] Johan RV Sensing Amplitude (mvolts) 0.3 mV [facility] Johan RV Sensing Polarity BI [facility] Detection Configuration (Vent) 1 - Zone [facility] ICD FastVT DetectionStatus DISABLED [facility] ICD-AMS EPISODES 170 {beats}/min [facility] ICD-ATP Episodes (Vent) 0 [facility] ICD-Device Mfg Other [facility] ICD-LEADIMPEDANCEATRIA L 340 ohm [facility] ICD-Percent Pacing (Atrial) 76 % [facility] ICD-Shocks Aborted (Vent) 0 [facility] [id number] 0 [facility] ICD-SHOCKSABORTED 0 [facility] ICD-SHOCKSDELIVEREDVEN TRICULAR 0 [facility] ICD-VVDELAY_MS 45 ms [facility] Implant Date 10/18/2021 [facility] Lead Impedance (LV) 840 ohm [facility] Lead Impedance (RV) 460 ohm [facility] Lead Impedance High Voltage 60 ohm [facility] Lead1 Mfg STJ [facility] Lead2 Mfg STJ [facility] Lead3 Mfg STJ [facility] Location LV [facility] Location RA [facility] Location RV [facility] Lower Rate (bpm) 70 {beats}/min [facility] Max Sensor Rate (bpm) 110 {beats}/min [facility] MDT_PROG_TACHY_ZONE_DE TECTIONS_STATUS ENABLED [facility] Model [id number] [place] HF [facility] Model 1458Q Quartet [facility] Model 2088TC Tendril STS [facility] Model 7122Q [place] SJ4 [facility] Pacing Mode DDDR [facility] Serial Number [id number] [facility] Serial Number [id number] [facility] Serial Number [id number] [facility] Serial Number [id number] [facility] Test Charge Energy 40 J [facility] Therapy Status (Vent) Enabled [facility] Thresh LV Capture Amplitude (volts) 1 V [facility] Thresh LV Capture Duration (ms) 0.5 ms [facility] Thresh RA Capture Amplitude (volts) 0.375 V [facility] Thresh RA Capture Duration (ms) 0.5 ms [facility] Thresh RA Sensing Amplitude (mvolts) 2.6 mV [facility] Thresh RV Capture Amplitude (VOLTS) 0.5 V [facility] Thresh RV Capture Duration (MS) 0.5 ms [facility] Thresh RV Sensing Amplitude (MVOLTS) 12 mV [facility] Tracking Rate (bpm) 130 {beats}/min [facility] VF Zone Detection Interval 300 ms [facility] VF Zone Therapy Configuration 0 ATP(s) + 6 Shock(s) [facility] AV Delay Adaptive Paced Minimum (ms) 170 ms [facility] AV Delay Adaptive Sensed Minimum (ms) 120 ms [facility] AV Delay Paced (ms) 90 ms [facility] AV Delay Sensed (ms) 90 ms [facility] Battery Voltage 3.07 V [facility] Johan LV Pacing Amplitude (volts) 2.5 V [facility] Johan LV Pacing Polarity BI [facility] Johan LV Pacing Pulse Width (ms) 0.5 ms [facility] Johan RA Pacing Amplitude (volts) 2 V [facility] Johan RA Pacing Polarity BI [facility] Johan RA Pacing Pulse Width (ms) 0.5 ms [facility] Johan RA Sensing Amplitude (mvolts) 0.5 mV [facility] Johan RA Sensing Polarity BI [facility] Johan RV Pacing Amplitude (volts) 1.5 V [facility] Johan RV Pacing Polarity BI [facility] Johan RV Pacing Pulse Width (ms) 0.5 ms [facility] Johan RV Sensing Amplitude (mvolts) 0.3 mV [facility] Johan RV Sensing Polarity BI [facility] Detection Configuration (Vent) 1 - Zone [facility] ICD FastVT DetectionStatus DISABLED [facility] ICD-AMS EPISODES 170 {beats}/min [facility] ICD-ATP Episodes (Vent) 0 [facility] ICD-Device Mfg Other [facility] ICD-LEADIMPEDANCEATRIA L 340 ohm [facility] ICD-Percent Pacing (Atrial) 76 % [facility] ICD-Shocks Aborted (Vent) 0 [facility] [id number] 0 [facility] ICD-SHOCKSABORTED 0 [facility] ICD-SHOCKSDELIVEREDVEN TRICULAR 0 [facility] ICD-VVDELAY_MS 45 ms [facility] Implant Date 10/18/2021 [facility] Lead Impedance (LV) 840 ohm [facility] Lead Impedance (RV) 460 ohm [facility] Lead Impedance High Voltage 60 ohm [facility] Lead1 Mfg STJ [facility] Lead2 Mfg STJ [facility] Lead3 Mfg STJ [facility] Location LV [facility] Location RA [facility] Location RV [facility] Lower Rate (bpm) 70 {beats}/min [facility] Max Sensor Rate (bpm) 110 {beats}/min [facility] MDT_PROG_TACHY_ZONE_DE TECTIONS_STATUS ENABLED [facility] Model [id number] [place] HF [facility] Model 1458Q Quartet [facility] Model 2088TC Tendril STS [facility] Model 7122Q [place] SJ4 [facility] Pacing Mode DDDR [facility] Serial Number [id number] [facility] Serial Number [id number] [facility] Serial Number [id number] [facility] Serial Number [id number] [facility] Test Charge Energy 40 J [facility] Therapy Status (Vent) Enabled [facility] Thresh LV Capture Amplitude (volts) 1 V [facility] Thresh LV Capture Duration (ms) 0.5 ms [facility] Thresh RA Capture Amplitude (volts) 0.375 V [facility] Thresh RA Capture Duration (ms) 0.5 ms [facility] Thresh RA Sensing Amplitude (mvolts) 2.6 mV [facility] Thresh RV Capture Amplitude (VOLTS) 0.5 V [facility] Thresh RV Capture Duration (MS) 0.5 ms [facility] Thresh RV Sensing Amplitude (MVOLTS) 12 mV [facility] Tracking Rate (bpm) 130 {beats}/min [facility] VF Zone Detection Interval 300 ms [facility] VF Zone Therapy Configuration 0 ATP(s) + 6 Shock(s) [facility] No Panel Informationon 12-13 BLANK _ [facility] Implant Date 03/23/2014 [facility] BLANK _ [facility] Implant Date 03/23/2014 [facility] ICD CLINIC CHECKon 2 AV Delay Adaptive Paced Minimum (ms) 170 ms [facility] AV Delay Adaptive Rate Maximum (bpm) 130 {beats}/min [facility] AV Delay Adaptive Rate Minimum (bpm) 90 {beats}/min [facility] AV Delay Adaptive Sensed Minimum (ms) 120 ms [facility] AV Delay Adaptive Status Medium [facility] AV Delay Paced (ms) 90 ms [facility] AV Delay Sensed (ms) 90 ms [facility] Johan LV Pacing Amplitude (volts) 2.5 V [facility] Johan LV Pacing Polarity BI [facility] Johan LV Pacing Pulse Width (ms) 0.5 ms [facility] Johan RA Pacing Amplitude (volts) 2 V [facility] Johan RA Pacing Polarity BI [facility] Johan RA Pacing Pulse Width (ms) 0.5 ms [facility] Johan RA Sensing Amplitude (mvolts) 0.5 mV [facility] Johan RA Sensing Blanking Period (ms) 110 ms [facility] Johan RA Sensing Polarity BI [facility] Johan RA Sensing Refractory Period (ms) 190 ms [facility] Johan RV Pacing Amplitude (volts) 1.5 V [facility] Johan RV Pacing Polarity BI [facility] Johan RV Pacing Pulse Width (ms) 0.5 ms [facility] Johan RV Sensing Amplitude (mvolts) 0.3 mV [facility] Johan RV Sensing Blanking Period (ms) 44 ms [facility] Johan RV Sensing Polarity BI [facility] Detection Configuration (Vent) 1 - Zone [facility] ICD FastVT DetectionStatus DISABLED [facility] ICD-AMS EPISODES 170 {beats}/min [facility] ICD-Johan RV Sensing Refractory Period (ms) 250 ms [facility] ICD-Device Mfg Other [facility] ICD-FALLBACKRATE_BPM 70 {beats}/min [facility] ICD-Hysteresis Rate Off [facility] ICD-LEADIMPEDANCEATRIA L 337.5 ohm [facility] ICD-Percent Pacing (Atrial) 83 % [facility] ICD-Percent Pacing (Vent) 98 % [facility] ICD-PMT Intervention Atrial Pace [facility] ICD-PVC Intervention Off [facility] ICD-Rate Modulation Acceleration Reaction Fast [facility] ICD-Rate Modulation Deceleration Medium [facility] ICD-Rate Modulation [place] Auto (+2) [facility] ICD-Rate Modulation Threshold Auto (-0.5) [facility] ICD-Rhythm SB/SR [facility] ICD-Shocks Aborted (Vent) 0 [facility] [id number] 0 [facility] ICD-SHOCKSABORTED 0 [facility] ICD-SHOCKSDELIVEREDVEN TRICULAR 0 [facility] Implant Date 10/18/2021 [facility] Lead Impedance (LV) 800 ohm [facility] Lead Impedance (RV) 412.5 ohm [facility] Lead Impedance High Voltage 57.375 [facility] Lead1 Mfg STJ [facility] Lead2 Mfg STJ [facility] Lead3 Mfg STJ [facility] Location LV [facility] Location RA [facility] Location RV [facility] Lower Rate (bpm) 70 {beats}/min [facility] Max Sensor Rate (bpm) 110 {beats}/min [facility] MDT_PROG_TACHY_ZONE_DE TECTIONS_STATUS ENABLED [facility] Model [id number] [place] HF [facility] Model 1458Q Quartet [facility] Model 2088TC Tendril STS [facility] Model 7122Q [place] SJ4 [facility] Pacemaker Dependent? NO [facility] Pacing Mode DDDR [facility] Serial Number [id number] [facility] Serial Number [id number] [facility] Serial Number [id number] [facility] Serial Number [id number] [facility] Therapy Status (Vent) Enabled [facility] Thresh LV Capture Amplitude (volts) 1 V [facility] Thresh LV Capture Duration (ms) 0.5 ms [facility] Thresh RA Capture Amplitude (volts) 0.5 V [facility] Thresh RA Capture Duration (ms) 0.5 ms [facility] Thresh RA Sensing Amplitude (mvolts) 2.1 mV [facility] Thresh RV Capture Amplitude (VOLTS) 0.5 V [facility] Thresh RV Capture Duration (MS) 0.5 ms [facility] Thresh RV Sensing Amplitude (MVOLTS) 12 mV [facility] Tracking Rate (bpm) 130 {beats}/min [facility] VF Zone Detection Interval 300 ms [facility] VF Zone Therapy Configuration 1 ATP(s) + 6 Shock(s) [facility] No Panel Informationon 11-30 BLANK _ [facility] Implant Date 03/23/2014 [facility] ICD REMOTE CHECKon 2 AV Delay Adaptive Paced Minimum (ms) 170 ms [facility] AV Delay Adaptive Sensed Minimum (ms) 120 ms [facility] AV Delay Paced (ms) 90 ms [facility] AV Delay Sensed (ms) 90 ms [facility] Battery Voltage 3.14 V [facility] Johan LV Pacing Amplitude (volts) 2.5 V [facility] Johan LV Pacing Polarity BI [facility] Johan LV Pacing Pulse Width (ms) 0.5 ms [facility] Johan RA Pacing Amplitude (volts) 2 V [facility] Johan RA Pacing Polarity BI [facility] Johan RA Pacing Pulse Width (ms) 0.5 ms [facility] Johan RA Sensing Amplitude (mvolts) 0.3 mV [facility] Johan RA Sensing Polarity BI [facility] Johan RV Pacing Amplitude (volts) 1.5 V [facility] Johan RV Pacing Polarity BI [facility] Johan RV Pacing Pulse Width (ms) 0.5 ms [facility] Johan RV Sensing Amplitude (mvolts) 0.3 mV [facility] Johan RV Sensing Polarity BI [facility] Detection Configuration (Vent) 1 - Zone [facility] ICD FastVT DetectionStatus DISABLED [facility] ICD-AMS EPISODES 170 {beats}/min [facility] ICD-ATP Episodes (Vent) 0 [facility] ICD-Device Mfg Other [facility] ICD-LEADIMPEDANCEATRIA L 330 ohm [facility] ICD-Percent Pacing (Atrial) 89 % [facility] ICD-Shocks Aborted (Vent) 0 [facility] [id number] 0 [facility] ICD-SHOCKSABORTED 0 [facility] ICD-SHOCKSDELIVEREDVEN TRICULAR 0 [facility] ICD-VVDELAY_MS 45 ms [facility] Implant Date 10/18/2021 [facility] Lead Impedance (LV) 790 ohm [facility] Lead Impedance (RV) 410 ohm [facility] Lead Impedance High Voltage 51 ohm [facility] Lead1 Mfg STJ [facility] Lead2 Mfg STJ [facility] Lead3 Mfg STJ [facility] Location LV [facility] Location RA [facility] Location RV [facility] Lower Rate (bpm) 70 {beats}/min [facility] Max Sensor Rate (bpm) 110 {beats}/min [facility] MDT_PROG_TACHY_ZONE_DE TECTIONS_STATUS ENABLED [facility] Model [id number] [place] HF [facility] Model 1458Q Quartet [facility] Model 2088TC Tendril STS [facility] Model 7122Q Durata SJ4 [facility] Pacing Mode DDDR [facility] Serial Number [id number] [facility] Serial Number [id number] [facility] Serial Number [id number] [facility] Serial Number [id number] [facility] Test Charge Energy 40 J [facility] Therapy Status (Vent) Enabled [facility] Thresh LV Capture Amplitude (volts) 0.75 V [facility] Thresh LV Capture Duration (ms) 0.5 ms [facility] Thresh RA Capture Amplitude (volts) 0.375 V [facility] Thresh RA Capture Duration (ms) 0.5 ms [facility] Thresh RA Sensing Amplitude (mvolts) 1.6 mV [facility] Thresh RV Capture Amplitude (VOLTS) 0.5 V [facility] Thresh RV Capture Duration (MS) 0.5 ms [facility] Thresh RV Sensing Amplitude (MVOLTS) 11.8 mV [facility] Tracking Rate (bpm) 130 {beats}/min [facility] VF Zone Detection Interval 300 ms [facility] VF Zone Therapy Configuration 0 ATP(s) + 6 Shock(s) [facility] No Panel Informationon 10-31 BLANK _ [facility] Implant Date 03/23/2014 [facility] ICD REMOTE CHECKon 2 AV Delay Adaptive Paced Minimum (ms) 170 ms [facility] AV Delay Adaptive Rate Maximum (bpm) 130 {beats}/min [facility] AV Delay Adaptive Rate Minimum (bpm) 90 {beats}/min [facility] AV Delay Adaptive Sensed Minimum (ms) 120 ms [facility] AV Delay Adaptive Status Medium [facility] AV Delay Paced (ms) 90 ms [facility] AV Delay Sensed (ms) 90 ms [facility] Johan LV Pacing Amplitude (volts) 2.5 V [facility] Johan LV Pacing Polarity BI [facility] Johan LV Pacing Pulse Width (ms) 0.5 ms [facility] Ojhan RA Pacing Amplitude (volts) 2 V [facility] Johan RA Pacing Polarity BI [facility] Johan RA Pacing Pulse Width (ms) 0.5 ms [facility] Johan RA Sensing Amplitude (mvolts) 0.3 mV [facility] Johan RA Sensing Blanking Period (ms) 110 ms [facility] Johan RA Sensing Polarity BI [facility] Johan RA Sensing Refractory Period (ms) 190 ms [facility] Johan RV Pacing Amplitude (volts) 1.5 V [facility] Johan RV Pacing Polarity BI [facility] Johan RV Pacing Pulse Width (ms) 0.5 ms [facility] Johan RV Sensing Amplitude (mvolts) 0.3 mV [facility] Johan RV Sensing Blanking Period (ms) 44 ms [facility] Johan RV Sensing Polarity BI [facility] Detection Configuration (Vent) 1 - Zone [facility] ICD FastVT DetectionStatus DISABLED [facility] ICD-AMS EPISODES 170 {beats}/min [facility] ICD-Johan RV Sensing Refractory Period (ms) 250 ms [facility] ICD-Device Mfg Other [facility] ICD-FALLBACKRATE_BPM 70 {beats}/min [facility] ICD-Hysteresis Rate Off [facility] ICD-PMT Intervention Atrial Pace [facility] ICD-PVC Intervention Off [facility] ICD-Rate Modulation Acceleration Reaction Fast [facility] ICD-Rate Modulation Deceleration Medium [facility] ICD-Rate Modulation [place] Auto (+2) [facility] ICD-Rate Modulation Threshold Auto (-0.5) [facility] Implant Date 10/18/2021 [facility] Lead1 Mfg STJ [facility] Lead2 Mfg STJ [facility] Lead3 Mfg STJ [facility] Location LV [facility] Location RA [facility] Location RV [facility] Lower Rate (bpm) 70 {beats}/min [facility] Max Sensor Rate (bpm) 110 {beats}/min [facility] MDT_PROG_TACHY_ZONE_DE TECTIONS_STATUS ENABLED [facility] Model [id number] [place] HF [facility] Model 1458Q Quartet [facility] Model 2088TC Tendril STS [facility] Model 7122Q Durata SJ4 [facility] Pacing Mode DDDR [facility] Serial Number [id number] [facility] Serial Number [id number] [facility] Serial Number [id number] [facility] Serial Number [id number] [facility] Therapy Status (Vent) Enabled [facility] Tracking Rate (bpm) 130 {beats}/min [facility] VF Zone Detection Interval 300 ms [facility] VF Zone Therapy Configuration 1 ATP(s) + 6 Shock(s) [facility] No Panel Informationon 10-23 BLANK _ [facility] Implant Date 03/23/2014 [facility] ICD CLINIC CHECKon 2 AV Delay Adaptive Paced Minimum (ms) 170 ms [facility] AV Delay Adaptive Rate Maximum (bpm) 130 {beats}/min [facility] AV Delay Adaptive Rate Minimum (bpm) 90 {beats}/min [facility] AV Delay Adaptive Sensed Minimum (ms) 120 ms [facility] AV Delay Adaptive Status Medium [facility] AV Delay Paced (ms) 90 ms [facility] AV Delay Sensed (ms) 90 ms [facility] Johan LV Pacing Amplitude (volts) 2.5 V [facility] Johan LV Pacing Polarity BI [facility] Johan LV Pacing Pulse Width (ms) 0.5 ms [facility] Johan RA Pacing Amplitude (volts) 2 V [facility] Johan RA Pacing Polarity BI [facility] Johan RA Pacing Pulse Width (ms) 0.5 ms [facility] Johan RA Sensing Amplitude (mvolts) 0.3 mV [facility] Johan RA Sensing Blanking Period (ms) 110 ms [facility] Johan RA Sensing Polarity BI [facility] Johan RA Sensing Refractory Period (ms) 190 ms [facility] Johan RV Pacing Amplitude (volts) 1.5 V [facility] Johan RV Pacing Polarity BI [facility] Johan RV Pacing Pulse Width (ms) 0.5 ms [facility] Johan RV Sensing Amplitude (mvolts) 0.3 mV [facility] Johan RV Sensing Blanking Period (ms) 44 ms [facility] Johan RV Sensing Polarity BI [facility] Detection Configuration (Vent) 1 - Zone [facility] ICD FastVT DetectionStatus DISABLED [facility] ICD-AMS EPISODES 170 {beats}/min [facility] ICD-Johan RV Sensing Refractory Period (ms) 250 ms [facility] ICD-Device Mfg Other [facility] ICD-FALLBACKRATE_BPM 70 {beats}/min [facility] ICD-Hysteresis Rate Off [facility] ICD-LEADIMPEDANCEATRIA L 337.5 ohm [facility] ICD-Percent Pacing (Atrial) 77 % [facility] ICD-Percent Pacing (Vent) 94 % [facility] ICD-PMT Intervention Atrial Pace [facility] ICD-PVC Intervention Off [facility] ICD-Rate Modulation Acceleration Reaction Fast [facility] ICD-Rate Modulation Deceleration Medium [facility] ICD-Rate Modulation [place] Auto (+2) [facility] ICD-Rate Modulation Threshold Auto (-0.5) [facility] ICD-Rhythm SR with a 1st degree AV block. [facility] ICD-Shocks Aborted (Vent) 0 [facility] [id number] 0 [facility] ICD-SHOCKSABORTED 0 [facility] ICD-SHOCKSDELIVEREDVEN TRICULAR 0 [facility] Implant Date 10/18/2021 [facility] Lead Impedance (LV) 787.5 ohm [facility] Lead Impedance (RV) 400 ohm [facility] Lead Impedance High Voltage 58.5 ohm [facility] Lead1 Mfg STJ [facility] Lead2 Mfg STJ [facility] Lead3 Mfg STJ [facility] Location LV [facility] Location RA [facility] Location RV [facility] Lower Rate (bpm) 70 {beats}/min [facility] Max Sensor Rate (bpm) 110 {beats}/min [facility] MDT_PROG_TACHY_ZONE_DE TECTIONS_STATUS ENABLED [facility] Model [id number] [place] HF [facility] Model 1458Q Quartet [facility] Model 2088TC Tendril STS [facility] Model 7122Q Durata SJ4 [facility] Pacemaker Dependent? NO [facility] Pacing Mode DDDR [facility] Serial Number [id number] [facility] Serial Number [id number] [facility] Serial Number [id number] [facility] Serial Number [id number] [facility] Therapy Status (Vent) Enabled [facility] Thresh LV Capture Amplitude (volts) 0.75 V [facility] Thresh LV Capture Duration (ms) 0.5 ms [facility] Thresh RA Capture Amplitude (volts) 0.5 V [facility] Thresh RA Capture Duration (ms) 0.5 ms [facility] Thresh RA Sensing Amplitude (mvolts) 2 mV [facility] Thresh RV Capture Amplitude (VOLTS) 0.5 V [facility] Thresh RV Capture Duration (MS) 0.5 ms [facility] Thresh RV Sensing Amplitude (MVOLTS) 11.8 mV [facility] Tracking Rate (bpm) 130 {beats}/min [facility] VF Zone Detection Interval 300 ms [facility] VF Zone Therapy Configuration 1 ATP(s) + 6 Shock(s) [facility] No Panel Informationon 10-18 BLANK _ [facility] Implant Date 03/23/2014 [facility] ICD CLINIC CHECKon 2 AV Delay Adaptive Paced Minimum (ms) 170 ms [facility] AV Delay Adaptive Rate Maximum (bpm) 110 {beats}/min [facility] AV Delay Adaptive Rate Minimum (bpm) 90 {beats}/min [facility] AV Delay Adaptive Sensed Minimum (ms) 120 ms [facility] AV Delay Adaptive Status Medium [facility] AV Delay Paced (ms) 90 ms [facility] AV Delay Sensed (ms) 90 ms [facility] Johan LV Pacing Amplitude (volts) 2 V [facility] Johan LV Pacing Polarity BI [facility] Johan LV Pacing Pulse Width (ms) 0.8 ms [facility] Johan RA Pacing Amplitude (volts) 2 V [facility] Johan RA Pacing Polarity BI [facility] Ojhan RA Pacing Pulse Width (ms) 0.4 ms [facility] Johan RA Sensing Amplitude (mvolts) 0.3 mV [facility] Johan RA Sensing Blanking Period (ms) 110 ms [facility] Johan RA Sensing Polarity BI [facility] Johan RA Sensing Refractory Period (ms) 190 ms [facility] Johan RV Pacing Amplitude (volts) 2 V [facility] Johan RV Pacing Polarity BI [facility] Johan RV Pacing Pulse Width (ms) 0.4 ms [facility] Johan RV Sensing Amplitude (mvolts) 0.5 mV [facility] Johan RV Sensing Blanking Period (ms) 52 ms [facility] Johan RV Sensing Polarity BI [facility] Detection Configuration (Vent) 1 - Zone [facility] ICD FastVT DetectionStatus DISABLED [facility] ICD-AMS EPISODES 170 {beats}/min [facility] ICD-ATP Episodes (Vent) 0 [facility] ICD-Johan RV Sensing Refractory Period (ms) 250 ms [facility] ICD-Device Mfg STJ [facility] ICD-FALLBACKRATE_BPM 70 {beats}/min [facility] ICD-Hysteresis Rate Off [facility] ICD-LEADIMPEDANCEATRIA L 362.5 ohm [facility] ICD-Percent Pacing (Atrial) 80 % [facility] ICD-Percent Pacing (Vent) 97 % [facility] ICD-PMT Intervention Atrial Pace [facility] ICD-PVC Intervention Off [facility] ICD-Rate Modulation Acceleration Reaction Fast [facility] ICD-Rate Modulation Deceleration Medium [facility] ICD-Rate Modulation [place] Auto (+2) [facility] ICD-Rate Modulation Threshold Auto (+0.0) [facility] ICD-Rhythm historically SR [facility] ICD-Shocks Aborted (Vent) 0 [facility] [id number] 0 [facility] ICD-SHOCKSABORTED 0 [facility] ICD-SHOCKSDELIVEREDVEN TRICULAR 0 [facility] ICD-Ventricular Fibrillation 0 [facility] Lead Impedance (LV) 812.5 ohm [facility] Lead Impedance (RV) 387.5 ohm [facility] Lead Impedance High Voltage 69.75 ohm [facility] Lead1 Mfg STJ [facility] Lead2 Mfg STJ [facility] Lead3 Mfg STJ [facility] Location LV [facility] Location RA [facility] Location RV [facility] Lower Rate (bpm) 70 {beats}/min [facility] Max Sensor Rate (bpm) 110 {beats}/min [facility] MDT_PROG_TACHY_ZONE_DE TECTIONS_STATUS ENABLED [facility] Model [id number] Quadra Assura [facility] Model 1458Q Quartet [facility] Model 2088TC Tendril STS [facility] Model 7122Q Durata SJ4 [facility] Pacemaker Dependent? NO [facility] Pacing Mode DDDR [facility] Serial Number [id number] [facility] Serial Number [id number] [facility] Serial Number [id number] [facility] Serial Number [id number] [facility] Test Charge Time 11.375 [facility] Therapy Status (Vent) Enabled [facility] Thresh RA Sensing Amplitude (mvolts) 3.1 mV [facility] Thresh RV Sensing Amplitude (MVOLTS) 12 mV [facility] Tracking Rate (bpm) 110 {beats}/min [facility] VF Zone Detection Interval 300 ms [facility] VF Zone Therapy Configuration 1 ATP(s) + 6 Shock(s) [facility] No Panel Informationon 10-04 BLANK _ [facility] Implant Date 03/23/2014 [facility] ICD REMOTE CHECKon 2 AV Delay Adaptive Paced Minimum (ms) 170 ms [facility] AV Delay Adaptive Sensed Minimum (ms) 120 ms [facility] AV Delay Paced (ms) 90 ms [facility] AV Delay Sensed (ms) 90 ms [facility] Battery Voltage 2.59 V [facility] Johan LV Pacing Amplitude (volts) 2 V [facility] Johan LV Pacing Polarity BI [facility] Johan LV Pacing Pulse Width (ms) 0.8 ms [facility] Johan RA Pacing Amplitude (volts) 2 V [facility] Johan RA Pacing Polarity BI [facility] Johan RA Pacing Pulse Width (ms) 0.4 ms [facility] Johan RA Sensing Amplitude (mvolts) 0.3 mV [facility] Johan RA Sensing Polarity BI [facility] Johan RV Pacing Amplitude (volts) 2 V [facility] Johan RV Pacing Polarity BI [facility] Johan RV Pacing Pulse Width (ms) 0.4 ms [facility] Johan RV Sensing Amplitude (mvolts) 0.5 mV [facility] Johan RV Sensing Polarity BI [facility] Detection Configuration (Vent) 1 - Zone [facility] ICD FastVT DetectionStatus DISABLED [facility] ICD-AMS EPISODES 170 {beats}/min [facility] ICD-ATP Episodes (Vent) 0 [facility] ICD-Device Mfg STJ [facility] ICD-LEADIMPEDANCEATRIA L 390 ohm [facility] ICD-Percent Pacing (Atrial) 80 % [facility] ICD-Shocks Aborted (Vent) 0 [facility] [id number] 0 [facility] ICD-SHOCKSABORTED 0 [facility] ICD-SHOCKSDELIVEREDVEN TRICULAR 0 [facility] ICD-VVDELAY_MS 45 ms [facility] Lead Impedance (LV) 830 ohm [facility] Lead Impedance (RV) 400 ohm [facility] Lead Impedance High Voltage 65 ohm [facility] Lead1 Mfg STJ [facility] Lead2 Mfg STJ [facility] Lead3 Mfg STJ [facility] Location LV [facility] Location RA [facility] Location RV [facility] Lower Rate (bpm) 70 {beats}/min [facility] Max Sensor Rate (bpm) 110 {beats}/min [facility] MDT_PROG_TACHY_ZONE_DE TECTIONS_STATUS ENABLED [facility] Model 3365-40Q Quadra Assura [facility] Model 1458Q Quartet [facility] Model 2088TC Tendril STS [facility] Model 7122Q Durata SJ4 [facility] Pacing Mode DDDR [facility] Serial Number [id number] [facility] Serial Number [id number] [facility] Serial Number [id number] [facility] Serial Number [id number] [facility] Test Charge Energy 40 J [facility] Test Charge Time 11.4 s [facility] Therapy Status (Vent) Enabled [facility] Thresh LV Capture Amplitude (volts) 0.75 V [facility] Thresh LV Capture Duration (ms) 0.8 ms [facility] Thresh RA Capture Amplitude (volts) 0.5 V [facility] Thresh RA Capture Duration (ms) 0.4 ms [facility] Thresh RA Sensing Amplitude (mvolts) 1.4 mV [facility] Thresh RV Capture Amplitude (VOLTS) 0.5 V [facility] Thresh RV Capture Duration (MS) 0.4 ms [facility] Thresh RV Sensing Amplitude (MVOLTS) 12 mV [facility] Tracking Rate (bpm) 110 {beats}/min [facility] VF Zone Detection Interval 300 ms [facility] VF Zone Therapy Configuration 0 ATP(s) + 6 Shock(s) [facility] No Panel Informationon 09-28 BLANK _ [facility] Implant Date 03/23/2014 [facility] GLYCOHEMOGLOBIN A1Con 2021 ADA RECOMMENDATION SEE BELOW Normal [facility] Comment on above: Result Comment: ADA RECOMMENDED LIMIT 4.0 - 6.0 ADA THERAPEUTIC TARGET < 7.0 ACTION SUGGESTED > 7.0 Performed By: #### C K #### [facility] [address] [place] [address] Dr. Darline Starr Glucose [Mass/Vol] 126 mg/dL Normal [facility] Comment on above: Performed By: #### C K #### [facility] [address] [address] [address] Darline Starr HbA1c (Bld) [Mass fraction] 6.0 % Normal 4.5-6.2 [facility] Comment on above: Performed By: #### C K #### [facility] [address] [place] [address] Dr. Darline Starr ICD REMOTE CHECKon 2 AV Delay Adaptive Paced Minimum (ms) 170 ms [facility] AV Delay Adaptive Sensed Minimum (ms) 120 ms [facility] AV Delay Paced (ms) 90 ms [facility] AV Delay Sensed (ms) 90 ms [facility] Battery Voltage 2.6 V [facility] Johan LV Pacing Amplitude (volts) 2 V [facility] Johan LV Pacing Polarity BI [facility] Johan LV Pacing Pulse Width (ms) 0.8 ms [facility] Johan RA Pacing Amplitude (volts) 2 V [facility] Johan RA Pacing Polarity BI [facility] Johan RA Pacing Pulse Width (ms) 0.4 ms [facility] Johan RA Sensing Amplitude (mvolts) 0.3 mV [facility] Johan RA Sensing Polarity BI [facility] Johan RV Pacing Amplitude (volts) 2 V [facility] Johan RV Pacing Polarity BI [facility] Johan RV Pacing Pulse Width (ms) 0.4 ms [facility] Johan RV Sensing Amplitude (mvolts) 0.5 mV [facility] Johan RV Sensing Polarity BI [facility] Detection Configuration (Vent) 1 - Zone [facility] ICD FastVT DetectionStatus DISABLED [facility] ICD-AMS EPISODES 170 {beats}/min [facility] ICD-ATP Episodes (Vent) 0 [facility] ICD-Device Mfg STJ [facility] ICD-LEADIMPEDANCEATRIA L 430 ohm [facility] ICD-Percent Pacing (Atrial) 80 % [facility] ICD-Shocks Aborted (Vent) 0 [facility] [id number] 0 [facility] ICD-SHOCKSABORTED 0 [facility] ICD-SHOCKSDELIVEREDVEN TRICULAR 0 [facility] ICD-VVDELAY_MS 45 ms [facility] Lead Impedance (LV) 860 ohm [facility] Lead Impedance (RV) 430 ohm [facility] Lead Impedance High Voltage 70 ohm [facility] Lead1 Mfg STJ [facility] Lead2 Mfg STJ [facility] Lead3 Mfg STJ [facility] Location LV [facility] Location RA [facility] Location RV [facility] Lower Rate (bpm) 70 {beats}/min [facility] Max Sensor Rate (bpm) 110 {beats}/min [facility] MDT_PROG_TACHY_ZONE_DE TECTIONS_STATUS ENABLED [facility] Model 3365-40Q Quadra Assura [facility] Model 1458Q Quartet [facility] Model 2088TC Tendril STS [facility] Model 7122Q Durata SJ4 [facility] Pacing Mode DDDR [facility] Serial Number [id number] [facility] Serial Number [id number] [facility] Serial Number [id number] [facility] Serial Number [id number] [facility] Test Charge Energy 40 J [facility] Test Charge Time 11.4 s [facility] Therapy Status (Vent) Enabled [facility] Thresh LV Capture Amplitude (volts) 0.75 V [facility] Thresh LV Capture Duration (ms) 0.8 ms [facility] Thresh RA Capture Amplitude (volts) 0.5 V [facility] Thresh RA Capture Duration (ms) 0.4 ms [facility] Thresh RA Sensing Amplitude (mvolts) 2.4 mV [facility] Thresh RV Capture Amplitude (VOLTS) 0.5 V [facility] Thresh RV Capture Duration (MS) 0.4 ms [facility] Thresh RV Sensing Amplitude (MVOLTS) 12 mV [facility] Tracking Rate (bpm) 110 {beats}/min [facility] VF Zone Detection Interval 300 ms [facility] VF Zone Therapy Configuration 0 ATP(s) + 6 Shock(s) [facility] No Panel Informationon 08-29 BLANK _ [facility] Implant Date 03/23/2014 [facility] PTH INTACTon 08-12-2021 PTH, Intact 32 pg/mL Normal 15-65 [facility] Comment on above: Performed By: #### P THINT #### [facility] [address] [place] [address] Dr. Darline Starr CBC AUTO DIFFon 08-10-2021 BASO # 0.0 103/ul Normal 0.0-0.1 [facility] Comment on above: Performed By: #### M ALBCRL #### [facility] [address] [place] [address] Dr. Darline Starr Basophils/100 WBC (Bld) 0.6 % Normal 0.2-2.0 [facility] Comment on above: Performed By: #### M ALBCRL #### [facility] [address] [place] [address] Dr. Darline Starr EO # 0.2 103/ul Normal 0.0-0.7 [facility] Comment on above: Performed By: #### M ALBCRL #### [facility] [address] [place] [address] Dr. Darline Starr Eosinophils/100 WBC (Bld) 3.6 % Normal 0.9-7.0 [facility] Comment on above: Performed By: #### M ALBCRL #### [facility] [address] [place] [address] Dr. Darline Starr Erythrocyte distribution width (RBC) [Ratio] 14.0 % Normal 11.0-15.0 [facility] Comment on above: Performed By: #### M ALBCRL #### [facility] [address] [place] [address] Dr. Darline Starr Hematocrit (Bld) [Volume fraction] 41.2 % Critically low 42.0-54.0 [facility] Comment on above: Performed By: #### M ALBCRL #### [facility] [address] [place] [address] Dr. Darline Starr Hemoglobin (Bld) [Mass/Vol] 13.3 g/dL Critically low 14.0-18.0 [facility] Comment on above: Performed By: #### M ALBCRL #### [facility] [address] [place] [address] Dr. Darline Starr IG # 0.03 10e3/ul Normal 0.00-0.03 [facility] Comment on above: Performed By: #### M ALBCRL #### [facility] [address] [place] [address] Dr. Darline Starr IG % 0.5 % Normal 0.0-0.5 [facility] Comment on above: Performed By: #### M ALBCRL #### [facility] [address] [place] [address] Dr. Darline Starr LYMPH # 1.3 103/ul Normal 1.2-3.8 [facility] Comment on above: Performed By: #### M ALBCRL #### [facility] [address] [place] [address] Dr. Darline Starr Lymphocytes/100 WBC (Bld) 20.4 % Critically low 20.5-60.0 [facility] Comment on above: Performed By: #### M ALBCRL #### [facility] [address] [place] [address] Dr. Darline Starr MANUAL DIFF REQ NO Normal [facility] Comment on above: Performed By: #### M ALBCRL #### [facility] [address] [place] [address] Dr. Darline Starr MCH (RBC) [Entitic mass] 32.0 pg Normal 25.9-34.0 [facility] Comment on above: Performed By: #### M ALBCRL #### [facility] [address] [place] [address] Dr. Darline Starr MCHC (RBC) [Mass/Vol] 32.3 g/dL Normal 29.9-35.2 [facility] Comment on above: Performed By: #### M ALBCRL #### [facility] [address] [place] [address] Dr. Darline Starr MCV (RBC) [Entitic vol] 99.0 fL Critically high 80.0-94.0 [facility] Comment on above: Performed By: #### M ALBCRL #### [facility] [address] [place] [address] Dr. Darline Starr MONO # 0.5 103/ul Normal 0.3-0.8 [facility] Comment on above: Performed By: #### M ALBCRL #### [facility] [address] [place] [address] Dr. Darline Starr Monocytes/100 WBC (Bld) 7.6 % Normal 1.7-12.0 [facility] Comment on above: Performed By: #### M ALBCRL #### [facility] [address] [place] [address] Dr. Darline Starr NEUT # 4.4 103/ul Normal 1.4-6.5 [facility] Comment on above: Performed By: #### M ALBCRL #### [facility] [address] [place] [address] Dr. Darline Starr Neutrophils/100 WBC (Bld) 67.3 % Normal 43.0-75.0 [facility] Comment on above: Performed By: #### M ALBCRL #### [facility] [address] [place] [address] Dr. Darline Starr Platelet mean volume (Bld) [Entitic vol] 10.1 fL Normal 9.5-13.5 [facility] Comment on above: Performed By: #### M ALBCRL #### [facility] [address] [place] [address] Dr. Darline Starr PLT 183 103/ul Normal 150-450 [facility] Comment on above: Performed By: #### M ALBCRL #### [facility] [address] [address] [address] Darline Starr RBC 4.16 106/ul Critically low 4.70-6.10 [facility] Comment on above: Performed By: #### M ALBCRL #### [facility] [address] [place] [address] Dr. Darline Starr WBC 6.5 103/ul Normal 4.0-11.0 [facility] Comment on above: Performed By: #### M ALBCRL #### [facility] [address] [place] [address] Dr. Darline Starr RENAL FUNCTION PANELon 08-10 Albumin [Mass/Vol] 3.2 g/dL Critically low 3.4-5.0 [facility] Comment on above: Performed By: #### R ENAL #### [facility] [address] [place] [address] Dr. Darline Starr Calcium [Mass/Vol] 8.7 mg/dL Normal 8.5-10.[address] [facility] Comment on above: Performed By: #### R ENAL #### [facility] [address] [place] [address] Dr. Darline Starr Chloride [Moles/Vol] 107 mmol/L Normal 98-107 [facility] Comment on above: Performed By: #### R ENAL #### [facility] [address] [place] [address] Dr. Darline Starr CO2 [Moles/Vol] 29.5 mmol/L Normal 22.0-30.0 [facility] Comment on above: Performed By: #### R ENAL #### [facility] [address] [place] [address] Dr. Darline Starr Creatinine [Mass/Vol] 1.63 mg/dL Critically high 0.66-1.25 [facility] Comment on above: Performed By: #### R ENAL #### [facility] [address] [place] [address] Dr. Darline Starr EGFR-AF GREEK 50 mL/min/1.73m2 Critically low >=60 [facility] Comment on above: Performed By: #### R ENAL #### [facility] [address] [address] [address] Darline Starr EGFR-NON AF GREEK 41 mL/min/1.73m2 Critically low >=60 [facility] Comment on above: Performed By: #### R ENAL #### [facility] [address] [address] [address] Darline Starr Glucose [Mass/Vol] 179 mg/dL Critically high 74-106 T [facility] Comment on above: Performed By: #### R ENAL #### [facility] [address] [address] [address] Darline Starr Phosphate [Mass/Vol] 3.5 mg/dL Normal 2.5-4.5 [facility] Comment on above: Performed By: #### R ENAL #### [facility] [address] [address] [address] Darline Starr Potassium [Moles/Vol] 4.4 mmol/L Normal 3.4-5.0 [facility] Comment on above: Performed By: #### R ENAL #### [facility] [address] [address] [address] Darline Starr Sodium [Moles/Vol] 143 mmol/L Normal 137-[address] [facility] Comment on above: Performed By: #### R ENAL #### [facility] [address] [address] [address] Darline Starr Urea nitrogen [Mass/Vol] 24.0 mg/dL Critically high 7.0-18.0 [facility] Comment on above: Performed By: #### R ENAL #### [facility] [address] [address] [address] Darline Starr UA RANDOM W/MICROSCOPICon BACTERIA NONE SEEN Normal NONE SEEN [facility] Comment on above: Performed By: #### P OCGLUC #### [facility] [address] [address] [address] Darline Starr Bilirubin Ql (U) Negative Normal NEGATIVE [facility] Comment on above: Performed By: #### P OCGLUC #### [facility] [address] [address] [address] Darline Starr CAST SEEN Abnormal NONE SEEN [facility] Comment on above: Performed By: #### P OCGLUC #### [facility] [address] [address] [address] Darline Starr Clarity (U) CLEAR Normal CLEAR [facility] Comment on above: Performed By: #### P OCGLUC #### [facility] [address] [address] [address] Darline Starr Color (U) LT. YELLOW Normal YELLOW [facility] Comment on above: Performed By: #### P OCGLUC #### [facility] [address] [address] [address] Darline Starr Crystals LM Nom (Urine sed) NONE SEEN Normal NONE SEEN [facility] Comment on above: Performed By: #### P OCGLUC #### [facility] [address] [address] [address] Darline Starr Epithelial cells LM Ql (Urine sed) FEW Abnormal NONE SEEN /RARE [facility] Comment on above: Performed By: #### P OCGLUC #### [facility] [address] [place] [address] Dr. Darline Starr Glucose Ql (U) Negative Normal NEGATIVE [facility] Comment on above: Performed By: #### P OCGLUC #### [facility] [address] [place] [address] Dr. Darline Starr Hemoglobin Ql (U) Negative Normal NEGATIVE [facility] Comment on above: Performed By: #### P OCGLUC #### [facility] [address] [address] [address] Darline Starr HYALINE CAST FEW Normal [facility] Comment on above: Performed By: #### P OCGLUC #### [facility] [address] [place] [address] Dr. Darline Starr Ketones Ql (U) Negative Normal NEGATIVE [facility] Comment on above: Performed By: #### P OCGLUC #### [facility] [address] [address] [address] Darline Starr LEUKOCYTES Negative Normal NEGATIVE [facility] Comment on above: Performed By: #### P OCGLUC #### [facility] [address] [address] [address] Darline Starr MUCOUS NONE SEEN Normal NONE SEEN [facility] Comment on above: Performed By: #### P OCGLUC #### [facility] [address] [address] [address] Darline Starr Nitrite Ql (U) Negative Normal NEGATIVE [facility] Comment on above: Performed By: #### P OCGLUC #### [facility] [address] [place] [address] Dr. Darline Starr pH (U) 5.0 [pH] Normal 5-9 [facility] Comment on above: Performed By: #### P OCGLUC #### [facility] [address] [place] [address] Dr. Darline Starr RBC 0-2 Normal 0-2 [facility] Comment on above: Performed By: #### P OCGLUC #### [facility] [address] [place] [address] Dr. Darline Starr SPEC GRAVITY 1.025 Normal 1.005-<=1.025 [facility] Comment on above: Performed By: #### P OCGLUC #### [facility] [address] [place] [address] Dr. Darline Starr UA PROTEIN Negative Normal NEGATIVE/ TRACE [facility] Comment on above: Performed By: #### P OCGLUC #### [facility] [address] [place] [address] Dr. Darline Starr Urobilinogen Qn (U) 0.2 {Jess'U}/dL Normal 0.2 - 1. 0 [facility] Comment on above: Performed By: #### P OCGLUC #### [facility] [address] [place] [address] Dr. Darline Starr WBC 0-2 Abnormal NONE SEEN [facility] Comment on above: Performed By: #### P OCGLUC #### [facility] [address] [place] [address] Dr. Darline Starr URINE T PROTEIN CREAT RATIOo n 08-10-2021 Protein (U) [Mass/Vol] 18.1 mg/dL Critically high <=12.0 [facility] Comment on above: Performed By: #### P OCGLUC #### [facility] [address] [address] [address] Darline Starr UR PROT CREAT RAT 0.10 Normal [facility] Comment on above: Performed By: #### P OCGLUC #### [facility] [address] [address] [address] Darline Starr URINE CREAT 189.98 mg/dL Normal 20.00-300.00 [facility] Comment on above: Performed By: #### P OCGLUC #### [facility] [address] [address] [address] Darline Starr VITAMIN D 25 OHon 08-10-2021 VIT D 25-OH 51.0 ng/mL Normal [facility] Comment on above: Performed By: #### P OCGLUC #### [facility] [address] [address] [address] Darline Starr VIT D RANGES SEE BELOW Normal [facility] Comment on above: Result Comment: <20 ng/mL Vit D deficient 20 - <30 ng/mL Vit D insufficient 30 - 100 ng/mL Vit D sufficient >100 ng/mL Potential Toxicity Performed By: #### P OCGLUC #### [facility] [address] [address] [address] Darline Starr Potassiumon 04-23-2020 Potassium [Moles/Vol] 4.9 mmol/L Normal 3.4-4.9 [facility] Comment on above: Result Comment: Spec imen hemolysis has exceeded the interference as defined by Patsy. Value may be falsely increased. Suggest recollection if clinically indicated. Performed By: #### K #### [facility] [address] [place] [id number] Vital Signs Date Time Vital Sign Value Performing Clinician Facility 06-15-2024 09:33-0500 Body mass index (BMI) [Ratio] 32.9 kg/m2 Bart Majano MD Work Phone: [facility] 06-15-2024 09:33-0500 Body temperature 97.11 [degF] Bart Majano MD Work Phone: [facility] 06-15-2024 09:33-0500 Body weight 113.1 kg Bart Majano MD Work Phone: [facility] Comment on above: with shoes 06-15-2024 09:33-0500 Diastolic blood pressure 72 mm[Hg] Bart Majano MD Work Phone: [facility] 06-15-2024 09:33-0500 Heart rate 71 /min Bart Majano MD Work Phone: [facility] 06-15-2024 09:33-0500 Respiratory rate 18 /min Bart Majano MD Work Phone: [facility] 06-15-2024 09:33-0500 SaO2% (BldA) [Mass fraction] 97 % Bart Majano MD Work Phone: [facility] Comment on above: RA 06-15-2024 09:33-0500 Systolic blood pressure 131 mm[Hg] Bart Majano MD Work Phone: [facility] 06-15-2024 07:29-0500 Diastolic blood pressure 61 mm[Hg] Xena Mandujano MD Work Phone: [facility] 06-15-2024 07:29-0500 Heart rate 70 /min Xena Mandujano MD Work Phone: [facility] 06-15-2024 07:29-0500 Systolic blood pressure 114 mm[Hg] Xena Mandujano MD Work Phone: [facility] 06-10-2024 11:48-0500 Body height 185.4 cm Eve Davis MD Work Phone: [facility] 06-10-2024 11:48-0500 Body mass index (BMI) [Ratio] 31.4 kg/m2 Eve Davis MD Work Phone: [facility] 06-10-2024 11:48-0500 Body temperature 97.7 [degF] Eve Davis MD Work Phone: [facility] 06-10-2024 11:48-0500 Body weight 107.96 kg Eve Davis MD Work Phone: [facility] Comment on above: Per pt. Pt in wheelchair 06-10-2024 11:48-0500 Diastolic blood pressure 56 mm[Hg] Eve Davis MD Work Phone: [facility] 06-10-2024 11:48-0500 Heart rate 70 /min Eve Davis MD Work Phone: [facility] 06-10-2024 11:48-0500 SaO2% (BldA) [Mass fraction] 96 % Eve Davis MD Work Phone: [facility] 06-10-2024 11:48-0500 Systolic blood pressure 110 mm[Hg] Eve Davis MD Work Phone: [facility] 05-06-2024 12:29-0500 Body height 185.4 cm Lyle De La Rosa MD Work Phone: [facility] 05-06-2024 12:29-0500 Body mass index (BMI) [Ratio] 31.4 kg/m2 Lyle De La Rosa MD Work Phone: [facility] 05-06-2024 12:29-0500 Body weight 107.96 kg Lyle De La Rosa MD Work Phone: [facility] 05-06-2024 12:29-0500 Diastolic blood pressure 63 mm[Hg] Lyle De La Rosa MD Work Phone: [facility] 05-06-2024 12:29-0500 Heart rate 63 /min Lyle De La Rosa MD Work Phone: [facility] 05-06-2024 12:29-0500 Systolic blood pressure 111 mm[Hg] Lyle De La Rosa MD Work Phone: [facility] 04-28-2024 09:44-0500 Body height 185.4 cm Michel Alcazar MD Work Phone: [facility] 04-28-2024 09:44-0500 Body mass index (BMI) [Ratio] 31.53 kg/m2 Michel Alcazar MD Work Phone: [facility] 04-28-2024 09:44-0500 Body temperature 97.5 [degF] Michel Alcazar MD Work Phone: [facility] 04-28-2024 09:44-0500 Body weight 108.41 kg Michel Alcazar MD Work Phone: [facility] 04-28-2024 09:44-0500 Diastolic blood pressure 64 mm[Hg] Michel Alcazar MD Work Phone: [facility] 04-28-2024 09:44-0500 Heart rate 86 /min Michel Alcazar MD Work Phone: [facility] 04-28-2024 09:44-0500 Respiratory rate 18 /min Michel Alcazar MD Work Phone: [facility] 04-28-2024 09:44-0500 SaO2% (BldA) [Mass fraction] 98 % Michel Alcazar MD Work Phone: [facility] 04-28-2024 09:44-0500 Systolic blood pressure 120 mm[Hg] Michel Alcazar MD Work Phone: [facility] 04-14-2024 13:01-0500 Diastolic blood pressure 54 mm[Hg] Kevin Steel MD Work Phone: [facility] 04-14-2024 13:01-0500 Heart rate 70 /min Kevin Steel MD Work Phone: [facility] 04-14-2024 13:01-0500 Systolic blood pressure 103 mm[Hg] Kevin Steel MD Work Phone: [facility] 03-19-2024 14:50-0400 Body height 185.4 cm Denisse Coon PA-C Work Phone: [facility] 03-19-2024 14:50-0400 Body mass index (BMI) [Ratio] 30.83 kg/m2 Denisse Coon PA-C Work Phone: [facility] 03-19-2024 14:50-0400 Body weight 106 kg Denisse Coon PA-C Work Phone: [facility] 03-19-2024 14:50-0400 Diastolic blood pressure 54 mm[Hg] Denisse Coon PA-C Work Phone: [facility] 03-19-2024 14:50-0400 Heart rate 71 /min Denisse Coon PA-C Work Phone: [facility] 03-19-2024 14:50-0400 SaO2% (BldA) [Mass fraction] 95 % Denisse Coon PA-C Work Phone: [facility] 03-19-2024 14:50-0400 Systolic blood pressure 95 mm[Hg] Denisse Coon PA-C Work Phone: [facility] 02-26-2024 10:11-0400 Diastolic blood pressure 50 mm[Hg] NA Machado [employer] Work Phone: [facility] 02-26-2024 10:11-0400 Systolic blood pressure 73 mm[Hg] NA Machado [employer] Work Phone: [facility] 09-03-2023 13:52-0400 Body height 185.4 cm Rossy Wright [employer] Work Phone: [facility] 09-03-2023 13:52-0400 Body weight 112.4 kg Rossy Wright [employer] Work Phone: [facility] 09-03-2023 13:52-0400 Diastolic blood pressure 57 mm[Hg] Rossy Wright [employer] Work Phone: [facility] 09-03-2023 13:52-0400 Heart rate 70 /min Rossy Wright [employer] Work Phone: [facility] 09-03-2023 13:52-0400 Systolic blood pressure 89 mm[Hg] Rossy Wright [employer] Work Phone: [facility] 07-31-2023 10:34-0400 Body height 185.4 cm Lakesha Sanchez MD Work Phone: [facility] 07-31-2023 10:34-0400 Body mass index (BMI) [Ratio] 32.19 kg/m2 Lakesha Sanchez MD Work Phone: [facility] 07-31-2023 10:34-0400 Body weight 110.68 kg Lakesha Sanchez MD Work Phone: [facility] 07-31-2023 10:34-0400 Diastolic blood pressure 60 mm[Hg] Lakesha Sanchez MD Work Phone: [facility] 07-31-2023 10:34-0400 Heart rate 69 /min Lakesha Sanchez MD Work Phone: [facility] 07-31-2023 10:34-0400 Respiratory rate 16 /min Lakesha Sanchez MD Work Phone: [facility] 07-31-2023 10:34-0400 SaO2% (BldA) [Mass fraction] 97 % Lakesha Sanchez MD Work Phone: [facility] 07-31-2023 10:34-0400 Systolic blood pressure 107 mm[Hg] Lakesha Sanchez MD Work Phone: [facility] 03-27-2023 12:01-0500 Body height 185.4 cm Lyle De La Rosa MD Work Phone: [facility] 03-27-2023 12:01-0500 Body weight 112.04 kg Lyle De La Rosa MD Work Phone: [facility] 03-27-2023 12:01-0500 Diastolic blood pressure 57 mm[Hg] Lyle De La Rosa MD Work Phone: [facility] 03-27-2023 12:01-0500 Heart rate 73 /min Lyle De La Rosa MD Work Phone: [facility] 03-27-2023 12:01-0500 Systolic blood pressure 89 mm[Hg] Lyle De La Rosa MD Work Phone: [facility] 03-01-2023 14:51-0400 Body height 185.4 cm Savanah Deitzer DO Work Phone: [facility] 03-01-2023 14:51-0400 Body weight 120.2 kg Savanah Deitzer DO Work Phone: [facility] 03-01-2023 14:51-0400 Diastolic blood pressure 66 mm[Hg] Savanah Deitzer DO Work Phone: [facility] 03-01-2023 14:51-0400 Heart rate 70 /min Savanah Deitzer DO Work Phone: [facility] 03-01-2023 14:51-0400 Systolic blood pressure 102 mm[Hg] Savanah Deitzer DO Work Phone: [facility] 08-13-2022 10:48-0400 Body height 185.4 cm Rossy Wright [employer] Work Phone: [facility] 08-13-2022 10:48-0400 Body weight 120.2 kg Rossy Wright [employer] Work Phone: [facility] 08-13-2022 10:48-0400 Diastolic blood pressure 58 mm[Hg] Rossy Wright [employer] Work Phone: [facility] 08-13-2022 10:48-0400 Heart rate 70 /min Rossy Wright [employer] Work Phone: [facility] 08-13-2022 10:48-0400 Systolic blood pressure 91 mm[Hg] Rossy Wright APRN.CNP Work Phone: [facility] 07-04-2022 11:01-0500 Body weight 118.84 kg Lakesha Sanchez MD Work Phone: [facility] 07-04-2022 11:01-0500 Diastolic blood pressure 57 mm[Hg] Lakesha Sanchez MD Work Phone: [facility] 07-04-2022 11:01-0500 Heart rate 72 /min Lakesha Sanchez MD Work Phone: [facility] 07-04-2022 11:01-0500 SaO2% (BldA) [Mass fraction] 95 % Lakesha Sanchez MD Work Phone: [facility] 07-04-2022 11:01-0500 Systolic blood pressure 94 mm[Hg] Lakesha Sanchez MD Work Phone: [facility] 10-04-2021 13:27-0400 Body height 185.4 cm Lakesha Sanchez MD Work Phone: [facility] 10-04-2021 13:27-0400 Body weight 123.38 kg Lakesha Sanchez MD Work Phone: [facility] 10-04-2021 13:27-0400 Diastolic blood pressure 66 mm[Hg] Lakesha Sanchez MD Work Phone: [facility] 10-04-2021 13:27-0400 Heart rate 68 /min Lakesha Sanchez MD Work Phone: [facility] 10-04-2021 13:27-0400 SaO2% (BldA) [Mass fraction] 98 % Lakesha Sanchez MD Work Phone: [facility] 10-04-2021 13:27-0400 Systolic blood pressure 129 mm[Hg] Lakesha Sanchez MD Work Phone: [facility] Encounters Encounter Date Encounter Type Care Provider Facility Start: 06-15-2024 End: 06-15-2024 Patient encounter procedure Xena Mandujano MD Work Phone: Dermatology Comment on above: 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, unspecified part of face (Primary Dx) Start: 06-15-2024 End: 06-15-2024 ambulatory MICHEL ALCAZAR Facility:[facility] Start: 06-10-2024 End: 06-10-2024 Admission to establishment Eve Davis MD Work Phone: [facility] Start: 06-10-2024 End: 06-10-2024 Patient encounter status Eve Davis MD Work Phone: [facility] Start: 06-10-2024 End: 06-10-2024 ambulatory Eve Davis MD Work Phone: [facility] Comment on above: 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, unspecified vessel or lesion type (Primary Dx); Stage 3 chronic kidney disease, unspecified whether stage 3a or 3b CKD (HCC); Permanent atrial fibrillation (HCC); Type 2 diabetes mellitus without complication, without long-term current use of insulin (HCC); Benign prostatic hyperplasia, unspecified whether lower urinary tract symptoms present; Preop exam for internal medicine Start: 06-10-2024 Encounter for other preprocedural examination EVE DAVIS [facility] Start: 05-28-2024 End: 05-28-2024 Telephone encounter Dulce Munoz MD Work Phone: Plastic Surgery Comment on above: Question Start: 05-26-2024 End: 05-26-2024 Unlisted evaluation and management service Ann Childress PA-C Work Phone: Plastic Surgery Comment on above: 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 (Primary Dx); OPENED IN ERROR Start: 05-22-2024 End: 05-22-2024 Telephone encounter Hever Palmer MD Work Phone: Dermatology Comment on above: Results Start: 05-18-2024 End: 05-18-2024 ambulatory MICHEL ALCAZAR [facility] [facility] Start: 05-18-2024 End: 05-18-2024 Patient encounter procedure Hever Palmer MD Work Phone: Dermatology Comment on above: Neoplasm of unspecif ied behavior of bone, soft tissue, and skin (Primary Dx); Diffuse photodamage of skin; Seborrheic keratosis Start: 05-18-2024 End: 05-21-2024 Clinisync Result Encounter Generic External Data Provider [facility] External Department Unsolicited Start: 05-18-2024 End: 05-21-2024 Clinisync Result Encounter Generic External Data Provider [facility] External Department Unsolicited Start: 05-14-2024 End: 05-17-2024 Refill Lakesha Sanchez MD Work Phone: Cardiology Start: 05-06-2024 End: 05-06-2024 ambulatory [facility] Facility:[facility] Start: 05-06-2024 End: 05-06-2024 Patient encounter procedure Lyle De La Rosa MD Work Phone: Cardiology Comment on above: 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 (Primary Dx); S/P CABG (coronary artery bypass graft); Atrial fibrillation, chronic (HCC) Start: 05-06-2024 End: 05-06-2024 Subsequent hospital visit by physician [facility] Work Phone: Cardiology Comment on above: Pacemaker reprogramm ing/check [Z45.018] Start: 05-06-2024 End: 05-06-2024 ambulatory [facility] Facility:[facility] Start: 04-28-2024 End: 04-28-2024 Bamboo flowsheet Michel Alcazar MD Work Phone: [facility] Start: 04-28-2024 End: 04-28-2024 Bamboo flowsheet Michel Alcazar MD Work Phone: [facility] Start: 04-28-2024 End: 04-28-2024 Office outpatient visit 25 minutes Michel Alcazar MD Work Phone: [facility] Comment on above: Type 2 diabetes steffi itus with hyperglycemia, without long-term current use of insulin (CMS/HCC) (Primary Dx); Essential hypertension, benign (CMS/HCC); Diabetic polyneuropathy associated with type 2 diabetes mellitus (CMS/HCC); Chronic systolic heart failure (CMS/HCC); BPH without urinary obstruction Start: 04-28-2024 End: 04-28-2024 ambulatory MICHEL ALCAZAR Not Available Start: 04-14-2024 End: 04-14-2024 ambulatory MICHEL ALCAZAR Facility:[facility] Start: 04-14-2024 End: 04-14-2024 Patient encounter procedure Kevin Steel MD Work Phone: Colorectal Surgery Comment on above: Hemorrhoids, unspeci fied hemorrhoid type (Primary Dx); External hemorrhoids Start: 03-30-2024 End: 04-01-2024 Refill Lakesha Sanchez MD Work Phone: Cardiology Comment on above: Refill Request Start: 03-28-2024 End: 03-30-2024 Refill [facility] Alcazar MD [facility] Comment on above: Type 2 diabetes steffi itus with diabetic polyneuropathy (CMS/HCC) Start: 03-19-2024 End: 03-19-2024 Patient encounter procedure Denisse Howard PA-C Work Phone: Cardiology Comment on above: Hospital discharge f ollow-up (Primary Dx); Primary hypertension; Benign hypertension with chronic kidney disease, stage III (HCC); 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; S/P CABG (coronary artery bypass graft); Cardiomyopathy, ischemic; Chronic systolic heart failure (HCC) Start: 03-19-2024 End: 03-19-2024 ambulatory MICHEL ALCAZAR Facility:[facility] Start: 03-19-2024 End: 03-19-2024 Clinisync Result Encounter Generic External Data Provider [facility] External Department Unsolicited Start: 03-19-2024 End: 03-19-2024 Clinisync Result Encounter Generic External Data Provider [facility] External Department Unsolicited Start: 03-19-2024 End: 03-19-2024 ambulatory MICHEL ALCAZAR Facility:[facility] Start: 03-12-2024 End: 03-12-2024 Refill Lakesha Sanchez MD Work Phone: Cardiology Comment on above: Refill Request Start: 03-09-2024 End: 03-09-2024 ambulatory Quiana Zavala [facility] Work Phone: Pharmacy Start: 03-09-2024 End: 03-09-2024 Telephone encounter Belen Hall RN NOC Comment on above: Follow Up Phone Call ( follow up call all clear. /) Transition Of Care ( TCM Pharmacy-Hospital discharge 03/06/24 ) Start: 03-06-2024 End: 03-06-2024 Evaluation and management of inpatient MICHEL A NADERER Facility:[facility] Start: 03-05-2024 End: 03-06-2024 Clinisync Result Encounter Generic External Data Provider [facility] External Department Unsolicited Start: 03-05-2024 End: 03-06-2024 Clinisync Result Encounter Generic External Data Provider [facility] External Department Unsolicited Start: 03-05-2024 End: 03-05-2024 Evaluation and management of inpatient MICHEL A NADERER Facility:[facility] Start: 02-29-2024 End: 03-01-2024 Clinisync Result Encounter Generic External Data Provider [facility] External Department Unsolicited Start: 02-29-2024 End: 03-01-2024 Clinisync Result Encounter Generic External Data Provider [facility] External Department Unsolicited Start: 02-26-2024 End: 02-26-2024 Evaluation and management of inpatient [facility] Work Phone: Cardiology Start: 02-26-2024 End: 03-06-2024 Evaluation and management of inpatient REJI SOURAV Facility:[facility] Start: 02-26-2024 End: 02-26-2024 ambulatory MICHEL A NADERER Facility:[facility] Start: 02-26-2024 End: 02-26-2024 Patient encounter procedure Lorena Machado APRN.CNP Work Phone: Cardiology Comment on above: Hypotension, unspeci fied hypotension type (Primary Dx) Start: 02-25-2024 ambulatory SHAIKH PRADEEP Facility: [facility] Start: 02-24-2024 End: 02-26-2024 ambulatory SHAIKH PRADEEP Facility:CD:[id number] Start: 11-22-2023 Telephone encounter Lakesha Ernst ot, MD Work Phone: Cardiology Comment on above: Patient Question Start: 11-18-2023 Orders Only Lyle Boyer MD Work Phone: Cardiology Comment on above: PAF (paroxysmal atri al fibrillation) (HCC) (Primary Dx) Start: 11-15-2023 End: 11-15-2023 ambulatory MICHEL ALCAZAR Not Available Start: 09-03-2023 End: 09-03-2023 ambulatory MICHEL SIMEONR Facility:[facility] Start: 09-03-2023 End: 09-03-2023 Patient encounter procedure Rossy Wright APRN.CNP Work Phone: Kidney Medicine Comment on above: Stage 3b chronic kid mago disease (HCC) (Primary Dx); Type 2 diabetes mellitus with stage 3b chronic kidney disease, without long-term current use of insulin (HCC) Start: 07-31-2023 End: 07-31-2023 ambulatory MICHEL SIMEONR Facility:[facility] Start: 07-31-2023 End: 07-31-2023 Patient encounter procedure Lakesha Sanchez MD Work Phone: Cardiology Comment on above: 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 Start: 07-26-2023 ICD Remote F/U Lyle Boyer MD Work Phone: [facility] Start: 07-22-2023 Telephone encounter Lakesha Ernst ot, MD Work Phone: Cardiology Comment on above: Received Outside Med [facility] Records Start: 03-27-2023 Follow-up encounter Lyle hull MD [facility] Start: 03-27-2023 End: 03-27-2023 Patient encounter procedure Lyle De La Rosa MD Work Phone: [facility] Department Comment on above: Cardiomyopathy, isch emic (Primary Dx) Start: 03-05-2023 Telephone encounter Savanah vazquez DO Work Phone: Kidney Medicine Comment on above: Results Start: 03-01-2023 End: 03-01-2023 Patient encounter procedure Savanah Olmos DO Work Phone: Kidney Medicine Comment on above: Stage 3b chronic kid mago disease (HCC) (Primary Dx); Type 2 diabetes mellitus with stage 3b chronic kidney disease, without long-term current use of insulin (HCC); Benign hypertension with chronic kidney disease, stage III (HCC); Hypoalbuminemia Start: 02-25-2023 Telephone encounter Rossy Wright APRN.WORKING [employer] Work Phone: Kidney Medicine Comment on above: lab orders faxed to [facility] Start: 01-25-2023 Follow-up encounter Niranjan lomeli MD Work Phone: [facility] Start: 01-25-2023 ICD Remote F/U Niranjan Chacko MD Work Phone: [facility] Department Start: 12-26-2022 Refill Lakesha Mancilla Work Phone: Cardiology Comment on above: Refill Request (ator vastatin) Start: 08-13-2022 End: 08-13-2022 Patient encounter procedure Rossy Wright [employer]HER [employer]ER.WORKING [employer] Work Phone: Kidney Medicine Comment on above: Benign hypertension with chronic kidney disease, stage III (HCC) (Primary Dx); Stage 3b chronic kidney disease (HCC); Type 2 diabetes mellitus with stage 3b chronic kidney disease, unspecified whether superintendent container terminal insulin use (HCC); Essential hypertension Start: 08-03-2022 Orders Only Bret Ivey MD Work Phone: Cardiology Comment on above: Pacemaker (Primary D x); Chronic systolic congestive heart failure (HCC) Patient Question Start: 07-22-2022 End: 07-23-2022 Evaluation and management of inpatient DR MICHEL ALCAZAR Facility:[facility] Start: 07-20-2022 End: 07-20-[address] IGNACIO BENITEZ . Facility:[facility] Start: 07-18-2022 End: 07-18-[address] LISA APPLE . 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 (Primary Dx); Cardiomyopathy, ischemic; Bright red blood per rectum; S/P CABG (coronary artery bypass graft); ICD (implantable cardioverter-defibrillator) in place; Atrial fibrillation, chronic (HCC) Start: 07-03-2022 Telephone encounter Lakesha Ernst ot, MD Work Phone: Cardiology Comment on above: Received Outside Med [facility] Records Start: 06-26-2022 Orders Only Lakesha Mancilla Work Phone: Cardiology Comment on above: Cardiomyopathy, isch emic (Primary Dx); Chronic systolic congestive heart failure (HCC); 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 [facility] Start: 06-16-2022 End: 06-17-[address] LISA APPLE . Facility:[facility] Start: 06-16-2022 End: 06-17-2022 Encounter for preprocedural laboratory examination DR LISA APPLE . Facility:[facility] Start: 05-23-2022 Telephone encounter Lakesha Ernst ot, MD Work Phone: Cardiology Comment on above: Request to hold Plav ix Start: 04-19-2022 Follow-up encounter Bret torres MD Work Phone: [facility] Start: 04-19-2022 ICD Remote F/U Bret Ivey MD Work Phone: [facility] Start: 03-27-2022 End: 03-28-[address] [...] Follow-up encounter Bret torres MD Work Phone: [facility] Start: 02-09-2022 ICD Remote F/U Bret Ivey MD Work Phone: [facility] Start: 02-08-2022 End: 02-09-[address] DOCTOR WAHL Facility:[facility] Start: 01-31-2022 Telephone encounter Rossy Wright APRN.CNP Work Phone: Internal Medicine [place] Comment on above: Lab Orders Start: 01-12-2022 Telephone encounter Lakesha Ernst ot, MD Work Phone: Cardiology Comment on above: Future Appointment Start: 01-08-2022 Telephone encounter Bret torres MD Work Phone: Cardiology Comment on above: Established Patient Follow-Up; Future Appointment Start: 12-29-2021 Follow-up encounter Bret torres MD Work Phone: [facility] Start: 12-29-2021 ICD Remote F/U Bret Ivey MD Work Phone: [facility] Start: 12-29-2021 Refill Lakesha Mancilla Work Phone: Cardiology Comment on above: Refill Request (clop idogrel) Start: 12-21-2021 Follow-up encounter Bret torres MD Work Phone: [facility] Start: 12-21-2021 Patient encounter procedure Bret Ivey MD Work Phone: [facility] Start: 12-19-2021 Telephone encounter Bret torres MD Work Phone: Cardiology Comment on above: Appointment Start: 12-18-2021 Follow-up encounter Bret torres MD Work Phone: [facility] Start: 12-18-2021 ICD Remote F/U Bret Ivey MD Work Phone: [facility] Start: 12-13-2021 Follow-up encounter Bret torres MD Work Phone: [facility] Start: 12-13-2021 ICD Remote F/U Bret Ivey MD Work Phone: [facility] Start: 11-30-2021 Follow-up encounter Bret torres MD Work Phone: [facility] Start: 11-30-2021 Patient encounter procedure Bret Ivey MD Work Phone: [facility] Start: 11-06-2021 Orders Only La Nena Farrell nd [employer]HER [employer]ER.WORKING [employer] Work Phone: Cardiology Comment on above: Cardiomyopathy, isch emic (Primary Dx) Start: 11-01-2021 Telephone encounter Bret torres MD Work Phone: Cardiology Comment on above: Courtesy Call (Surve y ) Start: 10-31-2021 Follow-up encounter Bret torres MD Work Phone: [facility] Start: 10-31-2021 ICD Remote F/U Bret Ivey MD Work Phone: [facility] Start: 10-23-2021 Follow-up encounter Bret torres MD Work Phone: [facility] Start: 10-23-2021 ICD Remote F/U Bret Ivey MD Work Phone: [facility] Start: 10-20-2021 ambulatory Apolonia Diaz RN NURSE REIMBURSEMENT SPEC Comment on above: Information Start: 10-18-2021 Follow-up encounter Bret torres MD Work Phone: [facility] Start: 10-18-2021 Patient encounter procedure Bret Ivey MD Work Phone: [facility] Start: 10-17-2021 ambulatory Penelope hudsonjigar Comment on above: Patient Education Start: 10-04-2021 Follow-up encounter Bret torres MD Work Phone: [facility] Start: 10-04-2021 End: 10-04-2021 Patient encounter procedure Bret Ivey MD Work Phone: [facility] Comment on above: Cardiomyopathy, isch emic (Primary Dx); Chronic systolic congestive heart failure (HCC); 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 Start: 09-28-2021 Follow-up encounter Bret torres MD Work Phone: [facility] Start: 09-28-2021 ICD Remote F/U Bret Ivey MD Work Phone: [facility] Start: 09-19-2021 End: 09-20-[address] MICHEL ALCAZAR Facility: Start: 08-29-2021 Follow-up encounter Bret torres MD Work Phone: [facility] Start: 08-29-2021 ICD Remote F/U Bret Ivey MD Work Phone: [facility] Start: 08-10-2021 End: 08-11-[address] DOCTOR WAHL Facility:[facility] Procedures Date Procedure Procedure Detail Performing Clinician Start: 05-18-2024 SKIN / NAIL BIOPSY Jaxon Palmer MD Work Phone: Start: 05-18-2024 [facility] SURGICAL PATHOLOGY Generic External Data Provider Start: 05-06-2024 Prgrmg dev eval impl antable subq lead dfb system [facility] [place] Provider Start: 03-19-2024 [facility] CBC PNL BLD AUTO Ge neric External Data Provider Start: 03-05-2024 [facility] Generic External Data Provider Start: 03-05-2024 Colonoscopy MICHEL MCNEILL [facility] Start: 03-05-2024 Antibody screen MICHEL COREY Comment on above: Order Comment: Speci men Type: BLOOD SPECIMENOrdering Facility: [facility] Address: [address] [place] [address] Performed By: #### T SCR ####CC MAIN BLOOD BANKCLIA [id number] [address] Start: 02-29-2024 [facility] OCCULT BLD EXAM-DIAG Generic External Data Provider Start: 02-27-2024 Antibody screen MICHEL COREY Comment on above: Order Comment: Speci men Type: BLOOD SPECIMENOrdering Facility: [facility] Address: [address] [place] [address] Performed By: #### T SCR ####CC MAIN BLOOD BANKCLIA [id number] [address] [place] Start: 02-26-2024 Prgrmg dev eval impl antable subq lead dfb system Lion Sebastian [employer]ER.WORKING [employer] Work Phone: Start: 07-26-2023 ICD REMOTE CHECK Cole Lopez MD Work Phone: Start: 03-27-2023 ICD CLINIC CHECK Cole Lopez MD Work Phone: Start: 01-25-2023 ICD REMOTE CHECK Niranjan Chacko MD Work Phone: Start: 07-04-2022 ICD CLINIC CHECK Bret Ivey MD Work Phone: Start: 04-19-2022 ICD REMOTE CHECK Bret Ivey MD Work Phone: Start: 03-27-[address] DOCTOR WAHL Comment on above: Performed By: #### C K #### [facility] [address] [place] [address] Dr. Darline Starr Start: 02-09-2022 ICD REMOTE CHECK Bret Ivey MD Work Phone: Start: 12-29-2021 ICD REMOTE CHECK Bret Ivey MD Work Phone: Start: 12-21-2021 ICD CLINIC CHECK Bret Ivey MD Work Phone: Start: 12-18-2021 ICD REMOTE CHECK Bret Ivey MD Work Phone: Start: 12-13-2021 ICD REMOTE CHECK Bret Ivey MD Work Phone: Start: 11-30-2021 ICD CLINIC CHECK Bret Ivey MD Work Phone: Start: 10-31-2021 ICD REMOTE CHECK Bret Ivey MD Work Phone: Start: 10-23-2021 ICD REMOTE CHECK Bret Ivey MD Work Phone: Start: 10-18-2021 ICD CLINIC CHECK Bret Ivey MD Work Phone: Start: 10-04-2021 ICD CLINIC CHECK Bret Ivey MD Work Phone: Start: 09-28-2021 ICD REMOTE CHECK Bret Ivey MD Work Phone: Start: 08-29-2021 ICD REMOTE CHECK Bret Ivey MD Work Phone: Start: 04-25-2017 History of coronary artery bypass grafting S/P CABG (coronary artery bypass graft) Bret Ivey MD Work Phone: History of coronary artery bypass grafting S/P CABG (coronary artery bypass graft) Lakesha Sanchez MD Work Phone: History of coronary artery bypass grafting S/P CABG (coronary artery bypass graft) Denisse Howard PA-C Work Phone: History of coronary artery bypass grafting S/P CABG (coronary artery bypass graft) Lyle De La Rosa MD Work Phone: Plan of Treatment Date Care Activity Detail Author Start: 09-15-2024 End: 09-15-2024 Patient encounter procedure 09/15/2024 2:00 PM EDT Office Visit Kidney Medicine [address] [place] [address] Rossy Wright APRN.WORKING [employer] [address] [place] [address] 6 month f/u Kidney Medicine Comment on above: 6 month f/u Start: 08-26-2024 Urine screening for protein Diabetes: Urine Protein Screening [facility] Start: 07-29-2024 End: 07-29-2024 Patient encounter procedure 07/29/2024 9:45 AM EDT Office Visit Cardiology [address] [place] [address] Lakesha Sanchez MD [address] [facility] [address] [place] [address] HF Cardiology Comment on above: HF Start: 07-28-2024 End: 07-28-2024 Patient encounter procedure 07/28/2024 10:30 AM EDT Office Visit [facility] [address] [place] [address] Michel Alcazar MD [address] [place] [address] [facility] Start: 07-13-2024 End: 07-13-2024 Admission to same day surgery center 07/13/2024 11:45 AM EST - 07/13/2024 4:15 PM EST Surgery Admitting [address] [place] [address] Dulce Munoz MD [address] [place] [address] FLAP PEDICLE DIRECT OR TUBED W/ OR W/O TRANSFER; FOREHEAD, CHEEKS, CHIN, MOUTH, NECK, AVILLAE, GENITALIA, HANDS AND FEET Admitting Comment on above: FLAP PEDICLE DIRECT OR TUBED W/ OR W/O TRANSFER; FOREHEAD, CHEEKS, CHIN, MOUTH, NECK, AVILLAE, GENITALIA, HANDS AND FEET Start: 07-13-2024 End: 07-13-2024 Frmj dir/tube pedcl w/wotr fh/ch/ch/m/n/ax/g/h/f FLAP PEDICLE DIRECT OR TUBED W/ OR W/O TRANSFER; FOREHEAD, CHEEKS, CHIN, MOUTH, NECK, AVILLAE, GENITALIA, HANDS AND FEET 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 07/13/2024 11:45 AM EST PEDIATRIC SURGERY Start: 07-13-2024 Subsequent hospital visit by physician 07/13/2024 11:45 AM EST Hospital Encounter Admitting [address] [place] [address] Dulce Munoz MD [address] [place] [address] 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 [C44.311] Admitting Comment on above: 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 [C44.311] Start: 07-13-2024 End: 07-13-2024 Patient encounter procedure 07/13/2024 7:30 AM EST Office Visit Dermatology [address] [address] Xena Mandujano MD [address] [place] [address] Mohs: BCC dorsum of nose, 5 pts - Dr. Munoz to close same day [facility] Comment on above: Mohs: BCC dorsum of nose, 5 pts - Dr. Munoz to close same day [facility] Start: 06-25-2024 End: 06-25-2024 Patient encounter procedure 06/25/2024 2:00 PM EST Appointment Radiology Pet CT [address] [place] [address] [place] [address] CT NECK W IVCON Radiology Pet CT Comment on above: CT NECK W IVCON Start: 06-16-2024 End: 06-16-2024 Patient encounter procedure 06/16/2024 11:30 AM EST Office Visit Kidney Medicine [address] [place] [address] Rsosy Wright, CR[employer]HER [employer]ER.WORKING [employer] [address] [place] [address] 6 month f/u Kidney Medicine Comment on above: 6 month f/u Start: 06-15-2024 End: 09-14-2024 CREATININE BLD CREATININE BLD Lab Routine Basal cell carcinoma (BCC) of skin of face, unspecified part of face Expected: 06/15/2024, Expires: 09/14/2024 [facility] Comment on above: Expected: 06/15/2024 , Expires: 09/14/2024 Start: 06-15-2024 End: 07-15-2025 CT Neck W contrast IV CT NECK SOFT TISSUE W IVCON Radiology Routine Basal cell carcinoma (BCC) of skin of face, unspecified part of face Expected: 06/15/2024, Expires: 07/15/2025 [facility] Work Phone: Comment on above: Expected: 06/15/2024 , Expires: 07/15/2025 Start: 06-15-2024 End: 06-15-2024 Admission to same day surgery center 06/15/2024 11:45 AM EST - 06/15/2024 4:15 PM EST Surgery Admitting [address] [place] [address] Dulce Munoz MD [address] [place] [address] FLAP PEDICLE DIRECT OR TUBED W/ OR W/O TRANSFER; FOREHEAD, CHEEKS, CHIN, MOUTH, NECK, AVILLAE, GENITALIA, HANDS AND FEET Admitting Comment on above: FLAP PEDICLE DIRECT OR TUBED W/ OR W/O TRANSFER; FOREHEAD, CHEEKS, CHIN, MOUTH, NECK, AVILLAE, GENITALIA, HANDS AND FEET Start: 06-15-2024 End: 06-15-2024 Frmj dir/tube pedcl w/wotr fh/ch/ch/m/n/ax/g/h/f FLAP PEDICLE DIRECT OR TUBED W/ OR W/O TRANSFER; FOREHEAD, CHEEKS, CHIN, MOUTH, NECK, AVILLAE, GENITALIA, HANDS AND FEET 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 06/15/2024 11:45 AM EST PEDIATRIC SURGERY Start: 06-15-2024 Subsequent hospital visit by physician 06/15/2024 11:45 AM EST Hospital Encounter Admitting [address] [place] [address] Dulce Munoz MD [address] [place] [address] 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 [C44.311] Admitting Comment on above: 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 [C44.311] Start: 06-15-2024 End: 06-15-2024 Patient encounter procedure 06/15/2024 7:30 AM EST Office Visit Dermatology [address] [address] Xena Mandujano MD [address] [place] [address] Mohs: BCC dorsum of nose, 5 pts - Dr. Munoz to close same day [facility] Dermatology Comment on above: Mohs: BCC dorsum of nose, 5 pts - Dr. Munoz to close same day [facility] Start: 06-09-2024 End: 06-09-2024 Patient encounter procedure 06/09/2024 1:45 PM EST Office Visit Plastic Surgery [address] [address] Dulce Munoz MD [address] [place] [address] Mohs closure consult Plastic Surgery Comment on above: Mohs closure consult Start: 05-20-2024 Advance Directive Discussion Advance Directive Discussion [facility] Start: 05-18-2024 End: 05-18-2024 Patient encounter procedure 05/18/2024 3:15 PM EST Office Visit Dermatology [address] [place] [address] Hever Palmer MD [address] [place] [address] [address] [place], [place] [id number] new consult-dermatology Dermatology Comment on above: new consult-dermatol ogy Start: 05-06-2024 End: 05-06-2024 Patient encounter procedure 05/06/2024 1:45 PM EST Office Visit Cardiology [address] [place] [address] Lyle De La Rosa MD [address] [place] [address] 1 yr f Cardiology Comment on above: 2 yr f Start: 05-06-2024 End: 05-06-2024 ambulatory 05/06/2024 12:15 PM EST Results Only Cardiology [address] [place] [address] 1 yr f Cardiology Comment on above: 2 yr f Start: 05-06-2024 End: 05-06-2024 Patient encounter procedure 05/06/2024 11:15 AM EST Appointment Cardiology [address] [place] [address] 2 yr f Cardiology Comment on above: 2 yr f Start: 05-04-2024 End: 05-04-2024 Patient encounter procedure Cardiology Comment on above: 2 yr f Start: 05-04-2024 End: 05-04-2024 ambulatory 05/04/2024 12:45 PM EST Results Only Cardiology [address] [place] [address] 2 yr f Cardiology Comment on above: 2 yr f Start: 04-28-2024 End: 04-28-2025 Hemoglobin A1c/Hemoglobin.total in Blood Hemoglobin A1c Lab Routine Type 2 diabetes mellitus with hyperglycemia, without long-term current use of insulin ([facility]) Expected: 04/28/2024 (Approximate), Expires: 04/28/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 Expected: 04/16/2024, Expires: 07/16/2024 [facility] Work Phone: Comment on above: Expected: 04/16/2024 , Expires: 07/16/2024 Start: 04-16-2024 End: 07-16-2024 Lipid 1996 panel - Serum or Plasma LIPID PANEL BASIC Lab Routine 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 Expected: 04/16/2024, Expires: 07/16/2024 [facility] Comment on above: Expected: 04/16/2024 , Expires: 07/16/2024 Start: 04-14-2024 End: 04-14-2024 Patient encounter procedure 04/14/2024 1:20 PM EST Office Visit Colorectal Surgery [address] [place] [address] [place] [address] [place] [address] hemmorroids Colorectal Surgery Comment on above: hemmorroids Start: 03-19-2024 End: 03-19-2024 Patient encounter procedure 03/19/2024 3:30 PM EDT Office Visit Cardiology [address] [place] [address] Lita Grayson, CR[employer]HER [employer] [address] [place], [place] [id number] HF Cardiology Comment on above: HF Start: 03-19-2024 End: 06-18-2024 Comprehensive metabolic 2000 panel - Serum or Plasma [facility] Work Phone: Comment on above: Expected: 03/19/2024 , Expires: 06/18/2024 Start: 03-10-2024 End: 03-10-2024 Patient encounter procedure 03/10/2024 11:30 AM EDT Office Visit Kidney Medicine [address] [place] [address] Rossy Wright, CRUSHER [employer] [address] [place] [address] 6 month f/u Kidney Medicine Comment on above: 6 month f/u Start: 03-04-2024 End: 06-03-2024 CBC panel - Blood by Automated count COMPLETE BLOOD COUNT Lab Routine Stage 3b chronic kidney disease (HCC) Type 2 diabetes mellitus with stage 3b chronic kidney disease, without long-term current use of insulin (HCC) Expected: 03/04/2024, Expires: 06/03/2024 [facility] Work Phone: Comment on above: Expected: 03/04/2024 , Expires: 06/03/2024 Start: 03-04-2024 End: 06-03-2024 Microalbumin/Creatinine [Mass Ratio] in Urine ALBUMIN/CREATININE RATIO, URINE Lab Routine Stage 3b chronic kidney disease (HCC) Type 2 diabetes mellitus with stage 3b chronic kidney disease, without long-term current use of insulin (HCC) Expected: 03/04/2024, Expires: 06/03/2024 [facility] Work Phone: Comment on above: Expected: 03/04/2024 , Expires: 06/03/2024 Start: 03-04-2024 End: 06-03-2024 Renal function 2000 panel - Serum or Plasma RENAL FUNCTION PANEL Lab Routine Stage 3b chronic kidney disease (HCC) Type 2 diabetes mellitus with stage 3b chronic kidney disease, without long-term current use of insulin (HCC) Expected: 03/04/2024, Expires: 06/03/2024 [facility] Work Phone: Comment on above: Expected: 03/04/2024 , Expires: 06/03/2024 Start: 03-04-2024 End: 03-04-2024 Patient encounter procedure 03/04/2024 11:00 AM EDT Office Visit [facility] [address] [place] [address] Michel Alcazar MD [address] [place] [address] [facility] Start: 02-26-2024 Hemoglobin A1c measurement Diabetes: Hemoglobin A1C [facility] Start: 01-19-2024 Covid-19 Vaccine () Covid-19 Vaccine () [facility] Start: 01-19-2024 Influenza vaccination Influenza Vacc ine (#1) [facility] Start: 09-07-2023 Covid-19 Vaccine () Covid-19 Vaccine () [facility] Start: 07-04-2023 BP CONTROLLED (<130/80) BP CON TROLLED (<130/80) [facility] Start: 07-04-2023 HEMOGLOBIN/HEMATOCRIT HEMOGLOBIN/HEM ATOCRIT [facility] Start: 05-20-2023 Advance Directive Discussion Advance Directive Discussion [facility] Start: 05-20-2023 Behavioral Health Screening Behavioral Health Screening [facility] Start: 05-20-2023 Depression Assessment Depression Ass essment [facility] Start: 02-13-2023 BP CONTROLLED (<130/80) BP CON TROLLED (<130/80) [facility] Start: 02-13-2023 End: 04-15-2023 CBC panel - Blood by Automated count CBC Lab Routine Benign hypertension with chronic kidney disease, 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, unspecified whether superintendent container terminal insulin use (HCC) Essential hypertension Expected: 02/13/2023, Expires: 04/15/2023 [facility] Work Phone: Comment on above: Expected: 02/13/2023 , Expires: 04/15/2023 Start: 02-13-2023 End: 04-15-2023 Renal function 2000 panel - Serum or Plasma RENAL FUNCTION PANEL Lab Routine Benign hypertension with chronic kidney disease, 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, unspecified whether superintendent container terminal insulin use (HCC) Essential hypertension Expected: 02/13/2023, Expires: 04/15/2023 [facility] Work Phone: Comment on above: Expected: 02/13/2023 , Expires: 04/15/2023 Start: 01-18-2023 Covid-19 Vaccine ( season) Covid-19 Vaccine ( season) [facility] Start: 01-18-2023 Influenza vaccination [facility] Start: 10-04-2022 BP CONTROLLED (<130/80) BP CON TROLLED (<130/80) [facility] Start: 10-04-2022 HEMOGLOBIN/HEMATOCRIT HEMOGLOBIN/HEM ATOCRIT [facility] Start: 10-04-2022 SERUM CREATININE SERUM CREATININE [facility] Start: 08-08-2022 BP CONTROLLED (<130/80) BP CON TROLLED (<130/80) [facility] Start: 08-03-2022 COVID-19 VACCINE (6 - Moderna series) COVID-19 VACCINE (6 - Moderna series) [facility] Start: 06-26-2022 End: 01-18-2023 Basic metabolic 2000 panel - Serum or Plasma BASIC METABOLIC PNL Lab Routine Cardiomyopathy, ischemic Chronic systolic congestive heart failure (HCC) 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 Expected: 06/26/2022, Expires: 01/18/2023 [facility] Work Phone: Comment on above: Expected: 06/26/2022 , Expires: 01/18/2023 Start: 05-20-2022 ADVANCE DIRECTIVE DISCUSSION ADVANCE DIRECTIVE DISCUSSION [facility] Start: 05-20-2022 DEPRESSION ASSESSMENT DEPRESSION ASS ESSMENT [facility] Start: 01-18-2022 Influenza vaccination INFLUENZA (#1) [facility] Start: 01-09-2022 Hepatitis B screening Urine Albumin:Creatinine Ratio [facility] Start: 01-09-2022 SERUM CREATININE SERUM CREATININE [facility] Start: 10-16-2021 COVID-19 VACCINE (5 - Booster for Moderna series) COVID-19 VACCINE (5 - Booster for Moderna series) [facility] Start: 10-12-2021 Hepatitis B surface antibody level LDL CHOLESTEROL [facility] Start: 07-18-2021 COVID-19 VACCINE (4 - Booster for Moderna series) COVID-19 VACCINE (4 - Booster for Moderna series) [facility] Start: 05-20-2021 ADVANCE DIRECTIVE DISCUSSION ADVANCE DIRECTIVE DISCUSSION [facility] Start: 05-20-2021 DEPRESSION ASSESSMENT DEPRESSION ASS ESSMENT [facility] Start: 09-04-2019 HEMOGLOBIN/HEMATOCRIT HEMOGLOBIN/HEM ATOCRIT [facility] Start: 09-04-2019 Hepatitis B screening URINE ALBUMIN:CREATININE RATIO [facility] Start: 11-06-2018 Hemoglobin A1c measurement HbA1C [facility] Start: 2016 RSV Vaccine (1 - 1-d ose 75+ series) RSV Vaccine (1 - 1-dose 75+ series) [facility] Start: 2006 PNEUMOVAX AGE 65 AND OVER WITH 5YR LOOKBACK (#1) PNEUMOVAX AGE 65 AND OVER WITH 5YR LOOKBACK (#1) [facility] Start: 2001 Hepatitis B Vaccine (1 of 3 - Risk 3-dose series) Hepatitis B Vaccine (1 of 3 - Risk 3-dose series) [facility] Start: 2001 RSV Vaccine (1 - 1-d ose 60+ series) RSV Vaccine (1 - 1-dose 60+ series) [facility] Start: 1991 SHINGRIX VACCINE (1 of 2) SHINGRIX VACCINE (1 of 2) [facility] Start: 1960 Pneumococcal Vaccine : 50+ (1 of 2 - PCV) Pneumococcal Vaccine: 50+ (1 of 2 - PCV) [facility] Start: 1960 Urine microalbumin profile [facility] Start: 1959 ANNUAL PCP TEAM RAILROAD CARMAN [place] DISEASE VISIT ANNUAL PCP TEAM CHRONIC DISEASE VISIT [facility] Start: 1959 Anxiety Screening Anxiety Screening [facility] Start: 1959 Depression Screening Depression Scre ening [facility] Start: 1953 Adult depression screening assessment DEPRESSION SCREENING [facility] Start: 1951 3 comp foot exam completed DIABETIC FOOT EXAM [facility] Start: 1951 Diabetic foot examination Diabetic Foot Exam [facility] Start: 1951 Glaucoma screening [facility] Start: 1951 Hepatitis C antibody , confirmatory test DILATED RETINAL EXAM [facility] Start: 1947 Pneumococcal Vaccine : 65+ (1 - PCV) Pneumococcal Vaccine: 65+ (1 - PCV) [facility] Start: 1947 Pneumococcal Vaccine : 65+ (1 of 2 - PCV) Pneumococcal Vaccine: 65+ (1 of 2 - PCV) [facility] Start: 1947 Pneumococcal Vaccine : 65+ Years (1 of 2 - PCV) Pneumococcal Vaccine: 65+ Years (1 of 2 - PCV) [facility] Start: 1947 PNEUMOCOCCAL: 65+ (1 - PCV) PNEUMOCOCCAL: 65+ (1 - PCV) [facility] Start: 1946 Hemoglobin A1c/Hemoglobin.total in Blood HBA1C [facility] Start: 1941 Medicare Annual Well ness (AWV) Medicare Annual Wellness (AWV) [facility] CARDIAC IMPLANTABLE DEVICE CHECK CARDIAC IMPLANTABLE DEVICE CHECK PACEART STAT 02/26/2024 1:49 PM EDT [facility] Work Phone: End: 11-06-2022 ECG COMPLETE ECG COMPLETE ECG Routine Cardiomyopathy, ischemic 1 Occurrences starting 11/06/2021 until 11/06/2022 [facility] Work Phone: Comment on above: 1 Occurrences starti ng 11/06/2021 until 11/06/2022 End: 08-04-2023 ECG COMPLETE ECG COMPLETE ECG Routine Pacemaker Chronic systolic congestive heart failure (HCC) 1 Occurrences starting 08/03/2022 until 08/04/2023 [facility] Work Phone: Comment on above: 1 Occurrences starti ng 08/03/2022 until 08/04/2023 End: 10-14-2024 ECG COMPLETE ECG COMPLETE ECG Routine 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 1 Occurrences starting 10/15/2023 until 10/14/2024 [facility] Comment on above: 1 Occurrences starti ng 10/15/2023 until 10/14/2024 End: 11-17-2024 ECG COMPLETE ECG COMPLETE ECG Routine PAF (paroxysmal atrial fibrillation) (HCC) 1 Occurrences starting 11/18/2023 until 11/17/2024 [facility] Work Phone: Comment on above: 1 Occurrences starti ng 11/18/2023 until 11/17/2024 End: 02-25-2025 ECG COMPLETE ECG COMPLETE ECG Routine Hypotension, unspecified hypotension type 1 Occurrences starting 02/26/2024 until 02/25/2025 [facility] Work Phone: Comment on above: 1 Occurrences starti ng 02/26/2024 until 02/25/2025 SURGICAL PATHOLOGY [facility] Work Phone: Comment on above: Release Upon Magyin g for 1 Occurrences starting 05/18/2024 [facility] Immunizations Immunization Date Immunization Notes Care Provider Fa [facility] 03-26-2024 influenza virus vaccine, unspecified formulation Michel Alcazar MD Work Phone: [facility] 02-19-2023 influenza (HD-IIV4) vaccine, age 65+ yr, high dose, quadrivalent, PF (FLUZONE HIGH-DOSE) Belen Hall RN [facility] 02-19-2023 influenza virus vaccine, unspecified formulation Lyle De La Rosa MD Work Phone: [facility] 02-13-2022 influenza (HD-IIV4) vaccine, age 65+ yr, high dose, quadrivalent, PF (FLUZONE HIGH-DOSE) Belen Hall RN [facility] 02-13-2022 influenza virus vaccine, unspecified formulation Niranjan Chacko MD Work Phone: [facility] 02-17-2021 influenza (HD-IIV4) vaccine, age 65+ yr, high dose, quadrivalent, PF (FLUZONE HIGH-DOSE) Belen Hall RN [facility] 02-03-2020 influenza (HD-IIV4) vaccine, age 65+ yr, high dose, quadrivalent, PF (FLUZONE HIGH-DOSE) Belen Hall RN [facility] 03-11-2019 zoster vaccine recombinant Belen Hall RN [facility] 02-09-2019 influenza, high dose seasonal, preservative-free Belen Hall RN [facility] 12-19-2018 zoster vaccine recombinant Belen Hall RN [facility] 03-13-2018 influenza, high dose seasonal, preservative-free Belen Hall RN [facility] 02-13-2017 influenza, high dose seasonal, preservative-free Belen Hall RN [facility] 03-04-2015 influenza, seasonal, injectable, preservative free Belen Hall RN [facility] 03-03-2014 influenza, injectabl e, quadrivalent, preservative free Belen Hall RN [facility] 02-20-2013 influenza, seasonal, injectable Belen Hall RN [facility] Payers Date Payer Category Payer Private Health Insurance [employer] [id number] 2009 Unknown [employer] MEDICARE SUPPLEMENT [id number] 2009-Present [phone] [id number] [place] [address] Indemnity [id number] 2009 Unknown [employer]IC[employer] SUPPLEMENT [id number] 2009-Present [phone] [address] [place], [place] [address] Indemnity [id number] 2006 Medicare MEDICARE MEDICAR E A AND B [id number] 2006-Present [phone] [place] [address] Medicare [id number] 2006 Medicare [id number] 1959 Medicare [id number] 1959 Unknown [id number] 1941 Unknown [id number] 1941 Unknown [id number] .[id number] 1941 Unknown [id number] .[id number] 1941 Unknown [id number] .[id number] 1941 Unknown [id number] .[id number] 1941 Unknown [id number] .[id number] 1941 Unknown [id number] .[id number] 1941 Unknown [id number] .[id number] 1941 Unknown [id number] .[id number] 1941 Unknown [id number] .[id number] 1941 Unknown [id number] .[id number] 1941 Unknown [id number] Social History Date Type Detail Facility Start: 12-05-2016 End: 06-10-2024 Tobacco smoking status CAIS Never smoked tobacco [facility] Start: 12-05-2016 End: 06-10-2024 Tobacco use and exposure Smokeless tobacco non-user [facility] Start: 08-08-2021 End: 05-18-2024 Alcohol intake Current non-drinker of alcohol (finding) [facility] Start: 1940 Sex Assigned At Male [facility] Start: 07-22-2021 End: 10-18-2021 Exposure to SARS-CoV-2 (event) Not sure [facility] Start: 01-11-2022 End: 03-14-2022 Exposure to SARS-CoV-2 (event) Unable to assess [facility] Start: 08-13-2022 End: 03-01-2023 History of Social function [facility] Work Phone: Start: 08-13-2022 End: 03-01-2023 Tobacco use panel [facility] Work Phone: National Score (1-100), lower number is lower risk 67 [facility] Start: 08-11-2018 Gender identity Identifies as male gender (finding) [facility] Start: 08-11-2018 Sexual orientation Heterosexual (fin danilo) [facility] Has the [employer] gas, oil, or water Hailo threatened to shut off services in your home in past 12Mo No [facility] Work Phone: (I/We) worried whether (my/our) food would run out before (I/we) got money to buy more. Never true [facility] Start: 1940 Sex assigned at Not on file [facility] Start: 06-10-2024 End: 06-15-2024 Alcoholic beverage intake Ex-drinker (finding) [facility] Start: 06-10-2024 Alcohol Comment Rarely [facility] NEGATED: Highlighted rowStart: NINF History of tobacco use Passive smoker [facility] Medical Equipment Procedure Code Equipment Code Equipment Origin al Text Equipment Identifier Dates once daily. USE TO TEST BLOOD SUGAR DAILY [id number] Start: 06-26-2022 Comment on above: once daily. USE TO T EST BLOOD SUGAR DAILY [id number] Start: 10-18-2021 [id number] Durata [id number] Start: 03-23-2014 [id number] Quartet [id number] Start: 03-23-2014 [id number] [place] [id number] Start: 03-23-2014 Goals Date Patient Goal Desired Activity /State Personal health goal Clinical Notes 10-04-2021 to 06-15-2024 Mady Reynolds MA - 06/15/2024 9:33 AM Bart Bingham MD - 06/15/2024 9:00 AM Xena Kruger MD - 06/15/2024 7:30 AM ESTPatient InstructionsPatient Instructions Note Date & Type Note [facility] 06-15-2024 Note [facility] 06-15-2024 History of Present illness Narrative Additional intake questions: Has the patient had fever, nausea, vomiting, diarrhea, constipation, fatigue for > 1 week? No Does the patient have a decreased appetite? No Does patient want to see a Quality And Reliability Engineer? No (yes to any of above refer patient to schedulers for dietitian appointment) ) Does patient have any new or increased numbness or tingling of extremities? No Is patient interested in fertility information? NA Does patient need any prescription refills? No Does patient have an advanced directive in place? No, Patient refused referral to Social Work or Resource Center Images from the original note were not included. 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 HPI: 83 year old male who presents with the above diagnosis, for an opinion regarding the role of radiation therapy in the management of the patient's disease. Final recommendations will be communicated back to the requesting physician by way of the shared medical record, or letter to requesting physician via mail. 05/18/24: Consult with Dr. Palmer in dermatology for a 3+ year history of a lesion on the nasal dorsum. He was using neosporin to manage this. Shave biopsy demonstrated BCC, nodular/infiltrative type. He was referred to [facility]. 06/15/24: Consult with Dr. Kowalski. Lesion measured 4.1x3.2cm. Management options were discussed, including [facility], vismo, radiation, and observation. He declined surgery. Today, Mr. Lanza presents with his and daughter. He reports several years of a lesion present on his nasal dorsum. Never previously met with a seafood technology specialist prior to 2023. The lesion bleeds occasionally, but otherwise does not bother him. No vision changes, facial numbness/weakness, dysarthria, dysphagia, or neck lumps. Currently he is managing with bandages and vaseline. REVIEW OF SYSTEMS: Pertinent positives and negatives listed above in HPI. A complete review of systems was otherwise negative. ALLERGIES: He does not recall ever developing an allergic reaction to iodinated contrast. This was added to his chart in 2017 as a precaution for LAUREN in setting of CKD. Allergies: Iv Dye [Iodinated C* Other: See Comments Comment:May cause kidney problems Sulfa (Sulfonamide * Itching MEDICATIONS: Current Outpatient Medications: atorvastatin (LIPITOR) 40 mg tablet metoprolol succinate ER (TOPROL XL) 50 mg 24 hr tablet spironolactone (ALDACTONE) 25 mg tablet lisinopril (ZESTRIL) 5 mg tablet aspirin 81 mg chewable tablet docusate sodium (COLACE) 100 mg capsule ajljoooq-bedfhnkpmr-kffqqhkty (NEOSPORIN) 3.5mg-400 unit- 5,000 unit/gram ONETOUCH ULTRA TEST test strip nitroglycerin sublingual (NITROQUICK) 0.4 mg SL tablet cyanocobalamin (VITAMIN B-12) 1,000 mcg tab gabapentin (NEURONTIN) 300 mg capsule tamsulosin ER (FLOMAX) 0.4 mg cp24 MULTIVITAMIN-FERROUS FUMARATE-FOLIC ACID 18 MG-400 MCG TABLET CALCIUM CARBONATE (CORAL CALCIUM ORAL) Cinnamon Bark 500 mg cap iv contrast (will be provided with radiology test) PRIOR RADIOTHERAPY: none Implanted or external electronic device: yes, MRI-incompatible ICD Collagen vascular disease or inflammatory bowel disease: none PAST MEDICAL HISTORY: PAST MEDICAL HISTORY Diagnosis Date A-fib (HCC) CAD (coronary artery disease) s/p CABG 4v, pacemaker CKD (chronic kidney disease) stage 3, GFR 30-59 ml/min (HCC) Congestive heart failure (HCC) Diabetes mellitus type 2 in obese GERD (gastroesophageal reflux disease) Hyperlipidemia Hypertension PAST SURGICAL HISTORY: PAST SURGICAL HISTORY Procedure Laterality Date CABG (4) VEIN GRAFTS & ARTERIAL GRAFT(S) 2002? PACEMAKER 2014 PAST SURGICAL HISTORY OF knee FAMILY HISTORY: FAMILY HISTORY Problem Relation Age of Onset Coronary Artery Disease Mother Coronary Artery Disease Father SOCIAL HISTORY: Junior Lanza is and lives with his in [facility]. Independent in ADLs. Walks with walker. Never smoked. Drives to appointments. PHYSICAL EXAM: VS: BP 131/72 (BP Site: Left Arm, BP Position: Sitting, BP Cuff Size: Large Adult) Pulse 71 Temp 36.2 C (97.1 F) (Temporal) Resp 18 Wt 113.1 kg (249 lb 5.4 oz) SpO2 97% BMI 32.90 kg/m ECOG 1-2 CONSTITUTIONAL: Alert, oriented, and in no acute distress. HEAD AND FACE: There is evidence of prior sun damage throughout the head and neck. There is a nodular, ulcerative lesion centered on the nasal dorsum, L>R, with scant bleeding. The lesion does not extend through the cartilage, but does involve most of the nose. No extension to the medial canthi. ORAL CAVITY AND OROPHARYNX: Moist mucosa. Palate elevates normally. Tongue soft, mobile, and midline. There are no visible or palpable mucosal lesions. TRISMUS: none NECK: There is no palpable neck or parotid lymphadenopathy. PULMONARY: Non-labored breathing. No wheezing. SKIN: nasal lesion as noted above NEURO: CN 3-12 grossly intact. Moving all extremities equally. PSYCHOLOGICAL: Appropriate mood and affect. Last Wt 06/15/24 : 113.1 kg (249 lb 5.4 oz) 06/10/24 : 108 kg (238 lb) 05/06/24 : 108 kg (238 lb) 03/19/24 : 106 kg (233 lb 11 oz) 03/06/24 : 106.4 kg (234 lb 9.1 oz) FLEXIBLE NASOPHARYNGOLARYNGOSCOPY: not performed LABORATORY DATA: none IMAGING: none PATHOLOGY: 05/18/24: A. Skin, dorsum of nose, shave biopsy: - Basal cell carcinoma, nodular and infiltrative types. 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 Mr. Lanza presents with a locally-advanced BCC of the nasal dorsum, present for many years. The lesion is not particularly symptomatic but does bleed and itch. To evaluate the local tumor extent and rule out rachael metastasis (which would be uncommon), I recommend a neck CT with IV contrast. He has an MRI incompatible pacemaker. Upon questioning today, he does not have an iodinated contrast allergy/intolerance, but this was added to his chart due to CKD. I encouraged oral hydration pre/post procedure and will discuss with his accounts payable lead to ensure there are no other concerns. IV hydration is typically reserved for GFR<30. I discussed management options including observation, surgical resection (declined by patient today), vismodegib, or radiotherapy. Vismodegib would not be potentially-curative, in contrast to surgery or radiotherapy. His performance status is reasonably good, he can drive, and he lives close to our [facility]. He also has support from his family. With respect to radiotherapy, I would recommend an approximate dose of ~50 Gy in 20 fractions with IMRT and custom bolus. More extreme hypofractionation poses risks of cartilage injury. I discussed the risks, benefits, alternatives, procedures, mechanics, and personnel involved in treatment. I also discussed possible acute and late toxicities during and after radiotherapy. He is interested in proceeding with radiotherapy. I will refer him to my colleagues in [place] for consultation. All questions answered. Signed by: Bart Majano MD I spent 45 minutes in the visit, with more than 50% of the total [id number]-sotk time of the visit in counseling / coordination of care. cc: Michel Alcazar ([facility]) [address] [place] [address] Xena [address]Bj [address] [place] [id number] documented in this encounter [facility] 06-15-2024 Note [facility] 06-15-2024 History of Present illness Narrative MOHS MICROGRAPHIC OPERATIVE REPORT SERVICE DATE: 06/15/2024 SERVICE TIME: 729 LOCATION: [address] [address] REFERRING PROVIDER: Hever Palmer [address] [place] [address] [place] [address] SURGEON: Dr. Xena Mandujano FELLOW: JASMINE REGISTERED NURSE: Paulette Xavier Nicoletti, Sanchez ANTICOAGULANTS: ASA IMPLANTED DEVICES: Pacemaker and Defibrillator ANTIBIOTIC PROPHYLAXIS: Not required TRANSPLANT PATIENT: No PHOTOS: Photos taken LESION #1 Preoperative Diagnosis: BCC Nodular and Infiltrative of the DORSUM OF NOSE Tumor Type: Primary Path Report Available at Bedside: Inside pathology report # [id number] Pre-op Size: Greater than 2 cm, (4.1 cm X 3.2 cm) Lymphadenopathy: None Indication for Mohs: Anatomic Location where lesion is prone to recur, Type of tumor, Size, Ill-defined borders, and Aggressive pathology Location: Area H: (Mask Areas of the Face - Includes Central Face, Eyelids, Inner/Outer [place], Eyebrows, Nose, Chin, Lips, Ears, Periauricular Skin and [place]) The patient is an 83M with CAD s/p CABG on ASA, CHF, DMT2 with CKD III, ambulates with cane, here with his and daughter. Patient reports he has had the BCC on his nose for many years. It occasionally bleeds, denies pain. He states that he is nervous about the surgery, and would rather not be at this appointment today. PE: Evaluation of the face reveals: - 4.1 x 3.2 cm pink pearly pink plaque, with raised border peripherally, and central ulceration, with left nasal ala contracted, on the dorsal nose and nasal tip, extending to left nasal ala A/P # Bx proven BCC nodular and infiltrative of dorsum of nose, locally advanced - discussed etiology of BCC - Discussed treatment options, including: - Mohs surgery. Mohs surgery procedure reviewed in detail, discussed that this is the gold standard for treatment and treatment success rate is 99%. Complications & side effects of surgery discussed which include: pain, infection, bleeding/hematoma, 100% scar formation, wound dehiscence, failure of flap or graft, distortion/alteration of surrounding anatomic features, temporary or permanent nerve damage, & tumor recurrence. Due to size and locally advanced nature, patient is scheduled with with plastics / Dr. Munoz for repair today. - vismodegib - Due to size of lesion and locally advanced nature, reviewed potential treatment with vismidegib, 150mg PO 5 days a week x 6-12+ months. Risks, benefits of vismodegib were reviewed with the patient, including but not limited to risk of muscle spasms, hair loss, change in taste, weight loss, fatigue, nausea, diarrhea, decreased appetite, constipation, joint pain, vomiting, skin reactions (including blisters, oral or genital sores, skin pain and burning, bone growth problems), enlarged lymph nodes, flu like symptoms. Discussed need for regular appointments to assess treatment progress. The patient and family was given opportunity to ask questions. - radiation - discussed potential treatment with radiation by radiation oncology. Rad onc willing to see the patient today if he is interested in a consult. - observation. Discussed that observation increases the risk of continued local destruction of the nose, as well as an increased risk of metastasis and . - Patient states he did not realize there were multiple treatment options available for his BCC. He states that surgery is his least preferred option, he is concerned about losing his entire nose and he really does not want to go through a surgical procedure. Reviewed options at length with the patient, his and his daughter. Patient is interested in potential treatment with vismodegib, and also potentially treatment with radiation. - will cancel Mohs surgery today, and let plastics know - patient will be able to meet with rad onc today, RN will escort patient to his appt in [facility] - patient will confirm after his rad onc consult, which option he prefers for treatment of his BCC - photo taken today in [facility] PATIENT DISCHARGED TO EVENTS MANAGER/NAME: Alma Rosa and daughter Rach The documentation for this note was completed by Jayla Xavier RN acting as scribe for Xena Mandujano MD. June 15, 2024 7:50 AM. FOLLOW UP: pending rad onc consult and final treatment decision; Schedule a full body skin exam with general dermatology every 6 months Xena Mandujano MD June 15, 2024 11:46 AM I spent a total of 35 minutes on the date of the service which included preparing to see the patient, [id number]-[id number] patient care, completing clinical documentation, performing a medically appropriate examination, counseling and educating the patient/family/caregiver, ordering medications, tests, or procedures and communicating results to the patient/family/caregiver. documented in this encounter [facility] 06-15-2024 Note [facility] 06-10-2024 Instructions Eve Davis MD - 06/10/2024 12:25 PM EST Images from the original note were not included. [facility] Pre-Anesthesia Consultation [facility] PATIENT PREOPERATIVE INSTRUCTIONS Self has scheduled you for your procedure at this surgery center: [facility] [place] Scheduling Office: [phone] --[address] [place] [address]. Please read below carefully for your personalized instructions. Dietary Restrictions: - Nothing to eat or drink after midnight except for a sip of water with approved medications. Medications: Unless instructed differently below, stay on all of your medications until your surgery. The morning of surgery day take metoprolol and Gabapentin. Discuss with your surgeon if ok to remain on uninterrupted Aspirin around surgery. If you start any new medications after today's visit, please contact your surgeon. No outpatient medications have been marked as taking for the 06/10/24 encounter (PAT) with Eve Davis MD. If you take any medications for erectile dysfunction-Cialis (Tadalafil), Levitra, Staxyn (Vardenafil) Viagra (Sildenenafil please do not take these for 48 hours before surgery. If you start any new medications after today's visit, please contact the surgeon's office. If you are currently using a nahf-klq-mchk injectable or oral medication for diabetes or weight loss such as Dulaglutide (Trulicity), Exenatide (Byetta, Bydureon), Liraglutide (Victoza, Saxenda), Semaglutide (Ozempic, Wegovy, Rybelsus), or Tirzepatide (Mounjaro), the medicine should be stopped at least 7 days before surgery. These medicines can cause food to remain in your stomach for a very long time and increase the risks from surgery and anesthesia. Not stopping the medication for a long enough time may result in your surgery being rescheduled. Blood Thinning Medications: - Stop NSAIDS (Ibuprofen, Advil, Aleve, Motrin, Celebrex, Mobic, etc.) 7 days before surgery, as directed by your surgeon. - Stop ALL herbal and dietary supplements 7 days before surgery. Important Reminders: If you are on dialysis, please check with your dialysis center or accounts payable lead to see if any adjustments need to be made to your schedule for the week of your surgery - Candy, mints, and tobacco products are NOT permitted the morning of surgery. - Hearing aids, dentures and glasses may be worn the morning of surgery. - NO jewelry, body piercings, makeup, hairpins or contacts are to be worn the day of surgery. If you develop symptoms such as a fever, cold, or flu, or have other changes to your health within TWO DAYS of scheduled surgery or the morning of surgery, please contact the surgery center above. Personal Belongings: -Please have photo ID and insurance cards. -If you do not have a copy of advance directives on file with us, please bring a copy with you on the day of surgery. - Leave ALL valuables and money at home or with family members. - Please bring high-quality footwear, such as sneakers, to the hospital for ambulating post-surgery. For Outpatient Procedures: - YOU MUST HAVE A RESPONSIBLE EVENTS MANAGER TAKE YOU HOME. A AIRPLANE PILOT SUPERVISOR OR ONCOLOGY SOCIAL WORKER CANNOT BE MADE A RESPONSIBLE EVENTS MANAGER. - We recommend that a responsible person stays with you overnight to take care of you. - You cannot stay in a hotel alone after outpatient surgery. You will not be permitted to have your surgery, if you do not have someone to take care of you. Arrival Time for Surgery: - To obtain your arrival time for surgery, call your physician's office the day before your surgery. - If you have received different instructions about finding out your arrival time from your surgeon, please follow those instructions. - If your surgery is scheduled for Saturday, call the Saturday before. Your surgeon s risk control director will tell you what time to call the office. - If you have not reached the departmental risk control director by 5 P.M., call [phone] after 5 P.M. the day before your surgery. Please be aware that emergency situations arise, which may delay or change your surgical time. If this happens, we will notify you as soon as possible and regret any inconvenience. If you already have an Advance Directive, please fax a copy to [phone] or email to for it to be added to your chart. If you do not have an Advance Directive, you can find the appropriate form and more information at [email or web address]. We recommend that you complete the Advance Directive form found on the website and bring it with you the day of your surgery. It can be witnessed and scanned into your chart that day. Eve Davis MD documented in this encounter [facility] 06-10-2024 History and physical note Images from the original note were not included. [facility]est[facility] HISTORY AND PHYSICAL EXAMINATION SERVICE DATE: 06/10/2024 SERVICE TIME: 12:00 PM PRIMARY CARE PHYSICIAN: Michel Alcazar MD Assessment Patient has the following medical conditions which may affect anahi-operative course: CKD stage 3 -baseline Cr 1.5-1.6 CAD with prior CABG Ischemic cardiomyopathy- s/p CRUSHER AND BLENDER OPERATOR - last device check 05/06/2024 - LVEF was 50 % on ECHO 02/2024. - on GDMT Toprol XL, aldactone, lisinopril pAFIB, low-burden -currently off apixaban due to GI bleed, planned for Watchman, follow up with cardiology -rate control on metoprolol Diabetes - off meds, diet controlled BPH -on flomax ?MCI - per his mind comes in goes at time, risk for delirium Osorio Activity Status Index: METS: Walk indoors, such as around the house (1.75 METs) Do light work around the house, such as dusting or washing dishes (2.70 METs) Take care of self; that is eating, dressing, bathing, using the toilet (2.75 METs) Walk a block or two on level ground (2.75 METs) Climb a flight of stairs or walk up a hill (5.50 METs) DASI Score: 15.45 Patient confirms chest pain or undue shortness of breath with the above physical activity. Patient is partially dependent. Clinical Frailty Scale: 6. Moderately frail STOP-Bang Score: STOP-Bang Score: 0 [id number] Score: Age: >=75 Sex: male CHF history: Yes Hypertension history: Yes Diabetes history: Yes [id number] Score: ARISCAT Score: Age: >80 Preoperative SpO2: >=96% Preoperative anemia: Yes Duration of surgery: >3 hrs Emergency procedure: No ARISCAT Score: ANESTHESIA FINDINGS: Intubation History: No history of difficult intubation Significant Anesthesia Considerations: none Airway History: No history of difficult airway I - PHYSICAL EVALUATION AIRWAY Patient intubated: No. Tracheostomy tube not present Mallampati: II. Neck ROM: full ROM without neurological symptoms. Mouth opening: adequate. Short neck: no. Thick neck: no Billingsley present: no Microretrognathia/Micronagthia/R ecessed Chin: No II - ANESTHESIA PLAN Beta Priya Monitoring Plan Post Procedure Analgesic Plan Prepared for Surgery: optimally prepared for surgery. he will discuss with with Plastics if ok to continue Asa. CONSULTS: Planned Anesthetic: The Following Tests/Procedures Have Been Initiated: No orders of the defined types were placed in this encounter. REASON FOR VISIT: Junior Lanza is a 83 year old male who is scheduled for Procedure(s): FLAP PEDICLE DIRECT OR TUBED W/ OR W/O TRANSFER; FOREHEAD, CHEEKS, CHIN, MOUTH, NECK, AVILLAE, GENITALIA, HANDS AND FEET (N/A) at the request of Dulce Baires MD for consultation. My final recommendation will be communicated back to the requesting physician by way of shared medical record or letter. Subjective The patient has the following: COVID-19 Immunization Status Overdue - Covid-19 Vaccine ( season) Overdue since 01/19/2024 05/08/2023 Imm Admin: COVID-19 vaccine, age 12+ yr, season (MODERNA) 04/05/2022 Imm Admin: COVID-19 vaccine, age 12+ yr, bivalent (MODERNA) 08/21/2021 Imm Admin: COVID-19 original vaccine, full dose, monovalent (MODERNA) Only the first 3 history entries have been loaded, but more history exists. CHIEF COMPLAINT: HPI: Mr. Lanza is a 83 yo male with PMH of CAD s/p CABG x4 (early 1999s, ischemic cardiomyopathy s/p CRUSHER AND BLENDER OPERATOR-D 03/23/14, low-burden PAF ( off eliquis due to GI bleed) and recent finding of skin cancer. REVIEW OF SYSTEMS: General: intentional weight loss Respiratory: No history of current cough or dyspnea, or pneumonia in the past 6 weeks. No history of respiratory/pulmonary symptoms or problems. Cardiovascular: Positive for: AICD/PPM, atrial fibrillation, CAD, CHF and hypertension GI: h/o GI bleed Positive for: GERD : CKD stg 3 Endocrine: Positive for: diabetes mellitus. Patient's diabetes mellitus is controlled by not on meds or insulin. Hematology: No history of bleeding or clotting disorder. Patient is not taking anti-coagulation or platelet medications. No history of hematological symptoms or problems. Oncology: skin cancer Psych: No history of psychiatric symptoms or problems. Musculoskeletal: Negative for joint pain or swelling, back pain or muscle pain. Skin: skin cancer PAST MEDICAL HISTORY Diagnosis Date A-fib (HCC) CAD (coronary artery disease) s/p CABG 4v, pacemaker CKD (chronic kidney disease) stage 3, GFR 30-59 ml/min (HCC) Congestive heart failure (HCC) Diabetes mellitus type 2 in obese GERD (gastroesophageal reflux disease) Hyperlipidemia Hypertension PAST SURGICAL HISTORY Procedure Laterality Date CABG (4) VEIN GRAFTS & ARTERIAL GRAFT(S) 2002? PACEMAKER 2014 PAST SURGICAL HISTORY OF knee FAMILY HISTORY Problem Relation Age of Onset Coronary Artery Disease Mother Coronary Artery Disease Father Social History Tobacco Use Smoking status: Never Passive exposure: Never Smokeless tobacco: Never Vaping Use Vaping status: Never Used Substance Use Topics Alcohol use: Not Currently Comment: Rarely Drug use: No Prior to Admission medications as of 05/18/24 1453 Medication Sig Last Dose Taking atorvastatin (LIPITOR) 40 mg tablet Take 1 tablet by mouth daily at bedtime. metoprolol succinate ER (TOPROL XL) 50 mg 24 hr tablet Take 1 tablet by mouth once daily. spironolactone (ALDACTONE) 25 mg tablet Take 0.5 tablets by mouth once daily. lisinopril (ZESTRIL) 5 mg tablet Take 1 tablet by mouth once daily. aspirin 81 mg chewable tablet Take 1 tablet by mouth once daily. docusate sodium (COLACE) 100 mg capsule Take 1 capsule by mouth two times a day as needed. jcyvcvfv-gaelxkubca-mxzvmpwne (NEOSPORIN) 3.5mg-400 unit- 5,000 unit/gram Apply to affected area three times a day. ONETOUCH ULTRA TEST test strip once daily. USE TO TEST BLOOD SUGAR DAILY nitroglycerin sublingual (NITROQUICK) 0.4 mg SL tablet Dissolve 1 tablet under the tongue every 5 minutes as needed for chest pain. cyanocobalamin (VITAMIN B-12) 1,000 mcg tab Take [...] mg cap Take 1,000 tablets by mouth. Medication Comments documented by Quiana Zavala RPh on 03/09/2024 at 1633. 03/09/24 The medications are managed by this patient by: PATIENT and SPOUSE Quiana Zavala RPh ALLERGIES Allergen Reactions Iv Dye [Iodinated C* Other: See Comments May cause kidney problems Sulfa (Sulfonamide * Itching Objective PHYSICAL EXAM: PAIN ASSESSMENT: VITALS: BP 110/56 Pulse 70 Temp (Src) 97.7 (Oral) Ht 6' 1 (1.85m) Wt 238 lb (108.0kg) SpO2 96% BMI 31.41 kg/(m^2). Diagnostic tests reviewed for today's visit: Lab Value Units Date High Low HB 11.3 g/dL 03/19/2024 17.0 13.0 HCT 35.3 % 03/19/2024 51.0 39.0 WBC 7.94 k/uL 03/19/2024 11.00 3.70 PLT 225 k/uL 03/19/2024 400 150 NA 139 mmol/L 03/19/2024 144 136 K 4.7 mmol/L 03/19/2024 5.1 3.7 GLUC 149 mg/dL 03/19/2024 99 74 BUN 28 mg/dL 03/19/2024 24 9 CREAT 1.57 mg/dL 03/19/2024 1.22 0.73 PTSEC 11.4 sec 03/05/2024 13.0 9.7 INR 1.1 no uni* 03/05/2024 1.3 0.9 APTT 27.0 sec 03/01/2024 32.4 23.0 ALT 10 U/L 03/19/2024 54 10 AST 27 U/L 03/19/2024 40 14 TBILI 0.2 mg/dL 03/19/2024 1.3 0.2 TSH 6.190 mIU/L 02/26/2024 4.200 0.270 Lab Value Units Date High Low HCGQT No results within date range. UHCG No results within date range. HCG, BODY* No results within date range. Lab Value Units Date High Low ABORHD No results within date range. ABSCREEN No results within date range. No results found for: HBA1C Recent Results (from the past 8760 hour(s)) ECG COMPLETE Collection Time: 05/06/24 10:45 AM Result Value Ventricular Rate 70 Atrial Rate 70 P-R Interval 198 QRS Duration 156 QT Interval 466 QTC Calculation (Bazett) 503 Calculated R [place] 223 Calculated T [place] 39 Impression AV DUAL-PACED RHYTHM BIVENTRICULAR PACEMAKER DETECTED ABNORMAL ECG Confirmed by MD BRITTANY, HEBA ([id number]) on 06/08/2024 2:30:44 PM Recent Results (from the past 27775 hour(s)) ECHO Collection Time: 10/04/21 11:02 AM Impression CONCLUSIONS: - Exam indication: Ischemic cardiomyopathy - [...] * * * Final * * * ECHO 02/2024: ONCLUSIONS: - Technically difficult exam due to suboptimal positioning. - Exam indication: Limited for LV function - The left ventricle is normal in size. There is left ventricular hypertrophy. Left ventricular systolic function is mildly decreased. EF = 50 5% (2D biplane) There is akinesis in the LCx territory. - Exam was compared with the prior echocardiographic exam performed on 10/04/2021. Similar distribution of wall motion abnormality. Improved global LVEF. Instructions Given to Patient: Instructions located in the after visit summary. Patient given verbal and written preop instructions and voices comprehension and compliance. SIGNATURE: Eve Davis MD PATIENT NAME: Junior Lanza DATE: June 10, 2024 TIME: 12:00 PM PAGER/CONTACT #: [facility] 06-10-2024 History and physical note Images from the original note were not included. [facility] Pre-Anesthesia Consultation Clinic HISTORY AND PHYSICAL EXAMINATION SERVICE DATE: 06/10/2024 SERVICE TIME: 12:00 PM PRIMARY CARE PHYSICIAN: Michel Alcazar MD Assessment Patient has the following medical conditions which may affect anahi-operative course: CKD stage 3 -baseline Cr 1.5-1.6 CAD with prior CABG Ischemic cardiomyopathy- s/p CRUSHER AND BLENDER OPERATOR - last device check 05/06/2024 - LVEF was 50 % on ECHO 02/2024. - on GDMT Toprol XL, aldactone, lisinopril pAFIB, low-burden -currently off apixaban due to GI bleed, planned for Watchman, follow up with cardiology -rate control on metoprolol Diabetes - off meds, diet controlled BPH -on flomax ?MCI - per his mind comes in goes at time, risk for delirium Osorio Activity Status Index: METS: Walk indoors, such as around the house (1.75 METs) Do light work around the house, such as dusting or washing dishes (2.70 METs) Take care of self; that is eating, dressing, bathing, using the toilet (2.75 METs) Walk a block or two on level ground (2.75 METs) Climb a flight of stairs or walk up a hill (5.50 METs) DASI Score: 15.45 Patient confirms chest pain or undue shortness of breath with the above physical activity. Patient is partially dependent. Clinical Frailty Scale: 6. Moderately frail STOP-Bang Score: STOP-Bang Score: 0 [id number] Score: Age: >=75 Sex: male CHF history: Yes Hypertension history: Yes Diabetes history: Yes [id number] Score: ARISCAT Score: Age: >80 Preoperative SpO2: >=96% Preoperative anemia: Yes Duration of surgery: >3 hrs Emergency procedure: No ARISCAT Score: ANESTHESIA FINDINGS: Intubation History: No history of difficult intubation Significant Anesthesia Considerations: none Airway History: No history of difficult airway I - PHYSICAL EVALUATION AIRWAY Patient intubated: No. Tracheostomy tube not present Mallampati: II. Neck ROM: full ROM without neurological symptoms. Mouth opening: adequate. Short neck: no. Thick neck: no Billingsley present: no Microretrognathia/Micronagthia/R ecessed Chin: No II - ANESTHESIA PLAN Beta Priya Monitoring Plan Post Procedure Analgesic Plan Prepared for Surgery: optimally prepared for surgery. he will discuss with with Plastics if ok to continue Asa. CONSULTS: Planned Anesthetic: The Following Tests/Procedures Have Been Initiated: No orders of the defined types were placed in this encounter. REASON FOR VISIT: Junior Lanza is a 83 year old male who is scheduled for Procedure(s): FLAP PEDICLE DIRECT OR TUBED W/ OR W/O TRANSFER; FOREHEAD, CHEEKS, CHIN, MOUTH, NECK, AVILLAE, GENITALIA, HANDS AND FEET (N/A) at the request of Dulce Baires MD for consultation. My final recommendation will be communicated back to the requesting physician by way of shared medical record or letter. Subjective The patient has the following: COVID-19 Immunization Status Overdue - Covid-19 Vaccine ( season) Overdue since 01/19/2024 05/08/2023 Imm Admin: COVID-19 vaccine, age 12+ yr, 2022- season (MODERNA) 04/05/2022 Imm Admin: COVID-19 vaccine, age 12+ yr, bivalent (MODERNA) 08/21/2021 Imm Admin: COVID-19 original vaccine, full dose, monovalent (MODERNA) Only the first 3 history entries have been loaded, but more history exists. CHIEF COMPLAINT: HPI: Mr. Lanza is a 83 yo male with PMH of CAD s/p CABG x4 (early 1999s, ischemic cardiomyopathy s/p CRUSHER AND BLENDER OPERATOR-D 03/23/14, low-burden PAF ( off eliquis due to GI bleed) and recent finding of skin cancer. REVIEW OF SYSTEMS: General: intentional weight loss Respiratory: No history of current cough or dyspnea, or pneumonia in the past 6 weeks. No history of respiratory/pulmonary symptoms or problems. Cardiovascular: Positive for: AICD/PPM, atrial fibrillation, CAD, CHF and hypertension GI: h/o GI bleed Positive for: GERD : CKD stg 3 Endocrine: Positive for: diabetes mellitus. Patient's diabetes mellitus is controlled by not on meds or insulin. Hematology: No history of bleeding or clotting disorder. Patient is not taking anti-coagulation or platelet medications. No history of hematological symptoms or problems. Oncology: skin cancer Psych: No history of psychiatric symptoms or problems. Musculoskeletal: Negative for joint pain or swelling, back pain or muscle pain. Skin: skin cancer PAST MEDICAL HISTORY Diagnosis Date A-fib (HCC) CAD (coronary artery disease) s/p CABG 4v, pacemaker CKD (chronic kidney disease) stage 3, GFR 30-59 ml/min (HCC) Congestive heart failure (HCC) Diabetes mellitus type 2 in obese GERD (gastroesophageal reflux disease) Hyperlipidemia Hypertension PAST SURGICAL HISTORY Procedure Laterality Date CABG (4) VEIN GRAFTS & ARTERIAL GRAFT(S) 2002? PACEMAKER 2014 PAST SURGICAL HISTORY OF knee FAMILY HISTORY Problem Relation Age of Onset Coronary Artery Disease Mother Coronary Artery Disease Father Social History Tobacco Use Smoking status: Never Passive exposure: Never Smokeless tobacco: Never Vaping Use Vaping status: Never Used Substance Use Topics Alcohol use: Not Currently Comment: Rarely Drug use: No Prior to Admission medications as of 05/18/24 1453 Medication Sig Last Dose Taking atorvastatin (LIPITOR) 40 mg tablet Take 1 tablet by mouth daily at bedtime. metoprolol succinate ER (TOPROL XL) 50 mg 24 hr tablet Take 1 tablet by mouth once daily. spironolactone (ALDACTONE) 25 mg tablet Take 0.5 tablets by mouth once daily. lisinopril (ZESTRIL) 5 mg tablet Take 1 tablet by mouth once daily. aspirin 81 mg chewable tablet Take 1 tablet by mouth once daily. docusate sodium (COLACE) 100 mg capsule Take 1 capsule by mouth two times a day as needed. iiahofxa-iwthkeuppz-esfefkprc (NEOSPORIN) 3.5mg-400 unit- 5,000 unit/gram Apply to affected area three times a day. ONETOUCH ULTRA TEST test strip once daily. USE TO TEST BLOOD SUGAR DAILY nitroglycerin sublingual (NITROQUICK) 0.4 mg SL tablet Dissolve 1 tablet under the tongue every 5 minutes as needed for chest pain. cyanocobalamin (VITAMIN B-12) 1,000 mcg tab Take [...] mg cap Take 1,000 tablets by mouth. Medication Comments documented by Quiana Zavala RPh on 03/09/2024 at 1633. 03/09/24 The medications are managed by this patient by: PATIENT and SPOUSE Quiana Zavala RPh ALLERGIES Allergen Reactions Iv Dye [Iodinated C* Other: See Comments May cause kidney problems Sulfa (Sulfonamide * Itching Objective PHYSICAL EXAM: PAIN ASSESSMENT: VITALS: BP 110/56 Pulse 70 Temp (Src) 97.7 (Oral) Ht 6' 1 (1.85m) Wt 238 lb (108.0kg) SpO2 96% BMI 31.41 kg/(m^2). Diagnostic tests reviewed for today's visit: Lab Value Units Date High Low HB 11.3 g/dL 03/19/2024 17.0 13.0 HCT 35.3 % 03/19/2024 51.0 39.0 WBC 7.94 k/uL 03/19/2024 11.00 3.70 PLT 225 k/uL 03/19/2024 400 150 NA 139 mmol/L 03/19/2024 144 136 K 4.7 mmol/L 03/19/2024 5.1 3.7 GLUC 149 mg/dL 03/19/2024 99 74 BUN 28 mg/dL 03/19/2024 24 9 CREAT 1.57 mg/dL 03/19/2024 1.22 0.73 PTSEC 11.4 sec 03/05/2024 13.0 9.7 INR 1.1 no uni* 03/05/2024 1.3 0.9 APTT 27.0 sec 03/01/2024 32.4 23.0 ALT 10 U/L 03/19/2024 54 10 AST 27 U/L 03/19/2024 40 14 TBILI 0.2 mg/dL 03/19/2024 1.3 0.2 TSH 6.190 mIU/L 02/26/2024 4.200 0.270 Lab Value Units Date High Low HCGQT No results within date range. UHCG No results within date range. HCG, BODY* No results within date range. Lab Value Units Date High Low ABORHD No results within date range. ABSCREEN No results within date range. No results found for: HBA1C Recent Results (from the past 8760 hour(s)) ECG COMPLETE Collection Time: 05/06/24 10:45 AM Result Value Ventricular Rate 70 Atrial Rate 70 P-R Interval 198 QRS Duration 156 QT Interval 466 QTC Calculation (Bazett) 503 Calculated R [place] 223 Calculated T [place] 39 Impression AV DUAL-PACED RHYTHM BIVENTRICULAR PACEMAKER DETECTED ABNORMAL ECG Confirmed by MD BRITTANY, [facility] ([id number]) on 06/08/2024 2:30:44 PM Recent Results (from the past 21121 hour(s)) ECHO Collection Time: 10/04/21 11:02 AM Impression CONCLUSIONS: - Exam indication: Ischemic cardiomyopathy - [...] * * * Final * * * ECHO 02/2024: ONCLUSIONS: - Technically difficult exam due to suboptimal positioning. - Exam indication: Limited for LV function - The left ventricle is normal in size. There is left ventricular hypertrophy. Left ventricular systolic function is mildly decreased. EF = 50 5% (2D biplane) There is akinesis in the LCx territory. - Exam was compared with the prior echocardiographic exam performed on 10/04/2021. Similar distribution of wall motion abnormality. Improved global LVEF. Instructions Given to Patient: Instructions located in the after visit summary. Patient given verbal and written preop instructions and voices comprehension and compliance. SIGNATURE: Eve Davis MD PATIENT NAME: Junior Lanza DATE: June 10, 2024 TIME: 12:00 PM PAGER/CONTACT #: documented in this encounter [facility] 05-28-2024 Telephone encounter Note Called back, no answer. Left VM with call back number. Patient has consult on 06/[address] Munoz prior to mohs closure on 06/15. [facility] Work Phone: 05-28-2024 Miscellaneous Notes Called back, no answer. Left VM with call back number. Patient has consult on 06/[address] Munoz prior to mohs closure on 06/15. Pt's daughter calling with a few question regarding her dads procedure with Dr. Munoz on 06/15. Please advise. documented in this encounter [facility] 05-28-2024 Telephone encounter Note Pt's daughter calling with a few question regarding her dads procedure with Dr. Munoz on 06/15. Please advise. [facility] 05-26-2024 Note HNO ID: [id number] Author: ANN CHILDRESS PA-C Service: ? Author Type: Physician Credentialing Analyst Type: Progress Notes Filed: 05/26/2024 12:52 Note Text: This encounter was opened in error. [facility] 05-26-2024 History of Present illness Narrative This encounter was opened in error. documented in this encounter [facility] 05-22-2024 Telephone encounter Note FINAL DIAGNOSIS A. Skin, dorsum of nose, shave biopsy: - Basal cell carcinoma, nodular and infiltrative types. SDB/EB 05/21/2024 Call placed to patient and Aware of results Please see preop photos Concern for large size and possible coordination with plastics Mohs AUC equals 9-preop size at least 2.5 cm Please reach out to patient to schedule [facility] 05-22-2024 Miscellaneous Notes FINAL DIAGNOSIS A. Skin, dorsum of nose, shave biopsy: - Basal cell carcinoma, nodular and infiltrative types. SDB/EB 05/21/2024 Call placed to patient and Aware of results Please see preop photos Concern for large size and possible coordination with plastics Mohs AUC equals 9-preop size at least 2.5 cm Please reach out to patient to schedule documented in this encounter [facility] 05-18-2024 History of Present illness Narrative Images from the original note were not included. 83 year old male here for lesion on nose Location nasal dorsum Present x years Itches: No Has been getting worse Has tried Cortaid Personal history of skin cancer: No (type, location and year) Derm Family history: Yes, Mother-unsure what type Denies fevers, chills Denies wt loss Denies new or changing moles PAST MEDICAL HISTORY Diagnosis Date A-fib (HCC) CAD (coronary artery disease) s/p CABG 4v, pacemaker CKD (chronic kidney disease) stage 3, GFR 30-59 ml/min ([facility]) Congestive heart failure (HCC) Diabetes mellitus type 2 in obese GERD (gastroesophageal reflux disease) Hyperlipidemia Hypertension Social History Tobacco Use Smoking status: Never Smokeless tobacco: Never Vaping Use Vaping status: Never Used Substance Use Topics Alcohol use: No Drug use: No Allergies: ALLERGIES Allergen Reactions Iv Dye [Iodinated C* Other: See Comments May cause kidney problems Sulfa (Sulfonamide * Itching Current Outpatient Medications on File Prior to Visit Medication Sig metoprolol succinate ER (TOPROL XL) 50 mg 24 hr tablet Take 1 tablet by mouth once daily. spironolactone (ALDACTONE) 25 mg tablet Take 0.5 tablets by mouth once daily. lisinopril (ZESTRIL) 5 mg tablet Take 1 tablet by mouth once daily. aspirin 81 mg chewable tablet Take 1 tablet by mouth once daily. docusate sodium (COLACE) 100 mg capsule Take 1 capsule by mouth two times a day as needed. fudpquyw-fcktxhekmc-gcfelbzxj (NEOSPORIN) 3.5mg-400 unit- 5,000 unit/gram Apply to affected area three times a day. atorvastatin (LIPITOR) 40 mg tablet Take 1 tablet by mouth daily at bedtime. ONETOUCH ULTRA TEST test strip once daily. USE TO TEST BLOOD SUGAR DAILY nitroglycerin sublingual (NITROQUICK) 0.4 mg SL tablet Dissolve 1 tablet under the tongue every 5 minutes as needed for chest pain. cyanocobalamin (VITAMIN B-12) 1,000 mcg tab Take [...] mg cap Take 1,000 tablets by mouth. No current facility-administered medications on file prior to visit. PE: Limited exam. General: no acute distress, diffuse photodamage of skin, diffuse seborrheic keratoses face and scalp Mood: alert and oriented X's 3 Hair/Scalp: normal Face: nose see photo-eroded sclerotic plaque Eyes/eyelids: normal Lips/Oral mucosa: normal Neck: normal Dorsum of Nose 2.5 cm pearly nodule A/P: Diffuse photodamage of skin Seborrheic keratosis Sun protection and avoidance discussed with patient SPF 30 and higher recommended Discussed Mohs micrographic surgery with patient and Discussed basal cell carcinoma Discussed possibility of needing coordination with facial plastics Neoplasm of unspecified behavior of bone, soft tissue, and skin Dorsum of Nose SKIN / NAIL BIOPSY Type of biopsy: tangential Informed consent: discussed and consent obtained Timeout: patient name, date of , surgical site, and procedure verified Procedure prep: Patient was prepped and draped in usual sterile fashion Prep type: Isopropyl alcohol Anesthesia: the lesion was anesthetized in a standard fashion Anesthetic: 1% lidocaine w/ epinephrine 1-100,000 buffered w/ 8.4% NaHCO3 Instrument used: DermaBlade Hemostasis achieved with: aluminum chloride Outcome: patient tolerated procedure well Post-procedure details: sterile dressing applied and wound care instructions given Dressing type: bandage and petrolatum Additional details: Bcc Specimen A - Surgical Pathology bcc RTC based on biopsy Pt and voiced understanding Medical Decision Making: Problems: Moderate: New problem with uncertain prognosis Risk: Moderate: Decision on minor surgery w/ risk factors Medical Decision Making Level: 4 - Moderate I agree with the Chief Complaint, ROS, and Past Histories independently gathered by the clinical support services manager and the remaining scribed note accurately describes my personal service to the patient. Hever Palmer MD documented in this encounter [facility] 05-18-2024 Note [facility] 05-18-2024 Instructions Nikole Guan LPN - 05/18/2024 3:02 PM EST CARE OF BIOPSY SITE 1. Wash your hands with soap and water. 2. Cleanse the biopsy site with antibacterial soap. 3. Thoroughly dry the area and apply a small amount of Vaseline or Aquaphor to keep area greasy at all times (this prevents a scab from forming). 4. PLEASE DO NOT use polysporin, Bacitracin, triple antibiotic or similar ointments. 5. Place a small dressing or band-aid over the wound until the wound is healed. (Studies show that wounds heal better when covered with ointment and a dressing). If you have any questions or concerns, please contact the office at [phone]. documented in this encounter [facility] 05-14-2024 Telephone encounter Note Patient called to request a refill on the medication(s) below: Requested Prescriptions Pending Prescriptions Disp Refills atorvastatin (LIPITOR) 40 mg tablet 90 tablet 4 Sig: Take 1 tablet by mouth daily at bedtime. [facility] Physician's Name: Lakesha Sanchez M.D. Last seen in office: 02.26.24 If last appointment greater than one year or no follow up scheduled, sent to schedulers Yes Mady Barillas 05/14/2024 [facility] 05-14-2024 Miscellaneous Notes Patient called to request a refill on the medication(s) below: Requested Prescriptions Pending Prescriptions Disp Refills atorvastatin (LIPITOR) 40 mg tablet 90 tablet 4 Sig: Take 1 tablet by mouth daily at bedtime. [facility]'s Name: Lakesha Sanchez M.D. Last seen in office: 02.26.24 If last appointment greater than one year or no follow up scheduled, sent to schedulers Yes Mady Barillas 05/14/2024 documented in this encounter [facility] 05-06-2024 Note Normal In-Office: Wi th Events CRUSHER AND BLENDER OPERATOR-D EVALUATION: * Normal Device Function * Battery: OK, 4.60 yrs * Presenting Rhythm: AP/BP * Underlying Rhythm: SR * Full testing recently done and not completed today. Sensing and impedances are stable. 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 * Total episodes: 152 * Measured value: 0.9mV * Programmed sensitivity setting: mV NOTE TO PROVIDERS: Cardiac Implanted Devices Flowsheets contain detailed Programming and Evaluation data. Full Docket/PDF found below under Scanned Documents . [facility] 05-06-2024 Note [facility] 05-06-2024 History of Present illness Narrative Images from the original note were not included. [facility] [place] [facility] Department of Cardiovascular Medicine SECTION OF CARDIAC PACING and ELECTROPHYSIOLOGY OUTPATIENT VISIT DATE May 06, 2024 OUTPATIENT VISIT TYPE ESTABLISHED PRIMARY CARE PHYSICIAN: Michel Alcazar ([facility]) [address] [place] [address] HISTORY OF PRESENT ILLNESS/NURSING INTAKE HISTORY: Mr. Lanza is a 83 year old male who presents today for follow-up visit for device management. He has a PMH of CAD s/p CABG x4 (early , ischemic cardiomyopathy s/p CRUSHER AND BLENDER OPERATOR-D 03/23/14, low-burden PAF (eliquis- once daily only due to lower GI bleeding), HTN, HLD, DM, and CKD. Last echo 04/2021 EF 30-35%. He was last seen in the office on 03/27/2023 and reported feeling well over all. He noted having some SOB with exertion. Device interrogation showed stable lead parameters and no significant arrhythmias. He was admitted in February for hypotension and having a syncopal event while in the office seeing Osiel Machado. He was noted to have a GI bleed and stopped on Eliquis. He is currently taking ASA only. GI bleed was determined to be due to internal hemorrhoids. He was seen by [facility] on 04/14 and no known recurrence of GI bleed. Per his states that Eliquis being restarted is to be determined by EP. He reports feeling well over all and has no cardiac complaints. CHADS2-Vasc Score Breakdown 6 Total Score 2 Age >= 75 years old 1 History of CHF 1 History of hypertension 1 History of diabetes mellitus 1 History of vascular disease PAST MEDICAL HISTORY Diagnosis Date A-fib (HCC) CAD (coronary artery disease) s/p CABG 4v, pacemaker CKD (chronic kidney disease) stage 3, GFR 30-59 ml/min (HCC) Congestive heart failure (HCC) Diabetes mellitus type 2 in obese GERD (gastroesophageal reflux disease) Hyperlipidemia Hypertension PAST SURGICAL HISTORY Procedure Laterality Date CABG (4) VEIN GRAFTS & ARTERIAL GRAFT(S) 2002? PACEMAKER 2014 PAST SURGICAL HISTORY OF knee SOCIAL HISTORY Social History Tobacco Use Smoking status: Never Smokeless tobacco: Never Vaping Use Vaping status: Never Used Substance Use Topics Alcohol use: No Drug use: No FAMILY HISTORY Problem Relation Age of Onset Coronary Artery Disease Mother Coronary Artery Disease Father ALLERGIES: ALLERGIES Allergen Reactions Iv Dye [Iodinated C* Other: See Comments May cause kidney problems Sulfa (Sulfonamide * Itching MEDICATIONS: metoprolol succinate ER (TOPROL XL) 50 mg 24 hr tablet Take 1 tablet by mouth once daily. spironolactone (ALDACTONE) 25 mg tablet Take 0.5 tablets by mouth once daily. lisinopril (ZESTRIL) 5 mg tablet Take 1 tablet by mouth once daily. aspirin 81 mg chewable tablet Take 1 tablet by mouth once daily. docusate sodium (COLACE) 100 mg capsule Take 1 capsule by mouth two times a day as needed. ljmmlije-cluhopbolo-zdgyozoow (NEOSPORIN) 3.5mg-400 unit- 5,000 unit/gram Apply to affected area three times a day. atorvastatin (LIPITOR) 40 mg tablet Take 1 tablet by mouth daily at bedtime. ONETOUCH ULTRA TEST test strip once daily. USE TO TEST BLOOD SUGAR DAILY nitroglycerin sublingual (NITROQUICK) 0.4 mg SL tablet Dissolve 1 tablet under the tongue every 5 minutes as needed for chest pain. cyanocobalamin (VITAMIN B-12) 1,000 mcg tab Take [...] mg cap Take 1,000 tablets by mouth. Belen Amador RN PHYSICAL EXAMINATION: BP 111/63 (BP Site: Left Arm, BP Position: Sitting) Pulse 63 Ht 185.4 cm (6' 1 ) Wt 108 kg (238 lb) BMI 31.40 kg/m General: Well appearing, in no acute [...] alert, cooperative, gait coordinated. CARDIOVASCULAR MEDICINE TESTING: EK05/06/2024 DEVICE CHECK: 05/06/2024 Normal In-Office: With Events CRUSHER AND BLENDER OPERATOR-D EVALUATION: * Normal Device Function * Battery: OK, 4.60 yrs * Presenting Rhythm: AP/BP * Underlying Rhythm: SR * Full testing recently done and not completed today. Sensing and impedances are stable. 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 * Total episodes: 152 * Measured value: 0.9mV * Programmed sensitivity setting: mV IMPRESSION: Mr. Lanza is a 83 year old male with history of ICM and CRUSHER AND BLENDER OPERATOR-D, PAF (CHADSVASc 6) and currently not on OAC due to recent GI bleeding who presents for routine device follow-up. Device interrogation today shows stable lead parameters and no significant arrhythmias. We had a prolonged discussion highlighting the need for OAC therapy given his high CHADSVASc - however, considering his high competing risk of bleeding, he is a good candidate for LAAO. We discussed in details risks and benefits of LAAO in his condition. The risks, benefits and anticipated outcomes of the procedure, the risks and benefits of the alternatives to the procedure, and the roles and tasks of the personnel to be involved, were discussed with the patient, and the patient consents to the procedure and agrees to proceed. PLAN AND RECOMMENDATIONS: Schedule LAAO I personally interviewed, confirmed and edited the above information as obtained by others. CONTACT INFORMATION: Lyle De La Rosa MD documented in this encounter [facility] 04-28-2024 History of Present illness Narrative Associated Problem(s): Type 2 diabetes mellitus with hyperglycemia, without long-term current use of insulin (CMS/HCC) Not checking BS and due for A1C. Stick to ADA diet and limit carbs. Associated Problem(s): Essential hypertension, benign (CMS/HCC) BP controlled and monitor PRN. Associated Problem(s): Diabetic polyneuropathy associated with type 2 diabetes mellitus (CMS/HCC) Pain stable and continue neurontin. Associated Problem(s): Chronic systolic heart failure (CMS/HCC) Edema stable and continue medication. Follow up with cardiology. Associated Problem(s): BPH without urinary obstruction Symptoms controlled with flomax and continue. Images from the original note were not included. Subjective Patient ID: Junior Lanza is a 83 y.o. male who presents for Follow-up (6m). Follow up DM, HTN, neuropathy, CHF, and BPH. Patient feels well today. Not checking BS away from office and due for A1C. Tries to eat well and stick to ADA diet. Denies signs of elevated BS such as polyuria, polyphagia or polydipsia. Checking BP PRN and typically controlled. BP normal today. Taking medication daily and tolerating without side effects. Neuropathy stable. Mild pain and burning in feet. Symptoms worse if up and moving a lot and at end of the day. Taking gabapentin and tolerable. Edema controlled with medication. Mild swelling at end of day and if on feet a lot. Edema improved in am and with elevation. BPH controlled with flomax. Normal stream and not straining to start flow of urine. Not up as much during night. Able to empty all the way and not dribbling. Review of Systems Constitutional: Negative for fatigue. Respiratory: Negative for cough, shortness of breath and wheezing. Cardiovascular: Negative for chest pain and palpitations. Gastrointestinal: Negative for abdominal pain, diarrhea, nausea and vomiting. Genitourinary: Negative for dysuria. Objective Physical Exam Constitutional: General: He is not in acute distress. Appearance: Normal appearance. HENT: Head: Normocephalic. Right Ear: Tympanic membrane and ear canal normal. Left Ear: Tympanic membrane and ear canal normal. Eyes: Extraocular Movements: Extraocular movements intact. Pupils: Pupils are equal, round, and reactive to light. Cardiovascular: Rate and Rhythm: Normal rate and regular rhythm. Heart sounds: No murmur heard. No friction rub. No gallop. Pulmonary: Breath sounds: Normal breath sounds. No wheezing, rhonchi or rales. Abdominal: General: Bowel sounds are normal. There is no distension. Palpations: Abdomen is soft. Tenderness: There is no abdominal tenderness. There is no guarding or rebound. Musculoskeletal: Left lower leg: No edema. Neurological: Mental Status: He is alert. Assessment/Plan Problem List Items Addressed This Visit Essential hypertension, benign (CMS/HCC) BP controlled and monitor PRN. BPH without urinary obstruction Symptoms controlled with flomax and continue. Chronic systolic heart failure (CMS/HCC) Edema stable and continue medication. Follow up with cardiology. Diabetic polyneuropathy associated with type 2 diabetes mellitus (CMS/HCC) Pain stable and continue neurontin. Type 2 diabetes mellitus with hyperglycemia, without long-term current use of insulin (CMS/HCC) - Primary Not checking BS and due for A1C. Stick to ADA diet and limit carbs. Relevant Orders Hemoglobin A1c documented in this encounter [facility] 04-14-2024 History of Present illness Narrative [facility] April 14, 2024 Junior Lanza 83 year old This consult was requested by Dr. Reji Bowie and my final recommendations will be communicated to the requesting health care provider by way of the shared medical record for internal providers or letter via the [employer] [place] Postal [employer] for external providers. Chief Complaint: hemorrhoids History of Present Illness: Junior Lanza is a 83 year old man with h/o CAD s/p CABG/ afib, previously on eliquis, CHF, PPM, CKD who presents to the office for evaluation of hemorrhoids. He Had rectal bleeding one month ago requiring hospitalization. Had several events of bright red blood per rectum. He was admitted, work up for rectal bleeding including colonoscopy with suspected source from internal hemorrhoids. Eliquis was stopped with no further bleeding and patient also instructed on improving bowel movements and toilet habits. Since, denies further bleeding episodes. Report normal stools now, no constipation, uses stool softeners (colace) and usually have 1 BM a day. No straining. Sits on toilet for 15 minutes, which is improved from prior. Still not on eliquis. Denies loss of weight or night sweats. No abdominal pain. Colonoscopy last month showed multiple polyps- TAs on path. PAST MEDICAL HISTORY Diagnosis Date A-fib (HCC) CAD (coronary artery disease) s/p CABG 4v, pacemaker CKD (chronic kidney disease) stage 3, GFR 30-59 ml/min (HCC) Congestive heart failure (HCC) Diabetes mellitus type 2 in obese GERD (gastroesophageal reflux disease) Hyperlipidemia Hypertension PAST SURGICAL HISTORY Procedure Laterality Date CABG (4) VEIN GRAFTS & ARTERIAL GRAFT(S) 2002? PACEMAKER 2013 PAST SURGICAL HISTORY OF knee Current Outpatient Medications Medication Sig Dispense Refill metoprolol succinate ER (TOPROL XL) 50 mg 24 hr tablet Take 1 tablet by mouth once daily. 90 tablet 4 spironolactone (ALDACTONE) 25 mg tablet Take 0.5 tablets by mouth once daily. 45 tablet 4 lisinopril (ZESTRIL) 5 mg tablet Take 1 tablet by mouth once daily. 90 tablet 4 aspirin 81 mg chewable tablet Take 1 tablet by mouth once daily. 60 tablet 0 docusate sodium (COLACE) 100 mg capsule Take 1 capsule by mouth two times a day as needed. 60 capsule 0 kwbxsofq-svihvejabh-czjqqqiqs (NEOSPORIN) 3.5mg-400 unit- 5,000 unit/gram Apply to affected area three times a day. 14 g 0 atorvastatin (LIPITOR) 40 mg tablet Take 1 tablet by mouth daily at bedtime. 90 tablet 4 furosemide (LASIX) 20 mg tablet Take 1 tablet by mouth once daily. Take one pill daily. Take an additional pill as needed to keep weight stable. 105 tablet 4 ONETOUCH ULTRA TEST test strip once daily. USE TO TEST BLOOD SUGAR DAILY nitroglycerin sublingual (NITROQUICK) 0.4 mg SL tablet Dissolve 1 tablet under the tongue every 5 minutes as needed for chest pain. 1 Bottle of 25 2 Echinacea 400 mg cap Take by mouth. [...] mg cap Take 1,000 tablets by mouth. No current facility-administered medications for this visit. ALLERGIES Allergen Reactions Iv Dye [Iodinated C* Other: See Comments May cause kidney problems Sulfa (Sulfonamide * Itching FAMILY HISTORY Problem Relation Age of Onset Coronary Artery Disease Mother Coronary Artery Disease Father Social History Tobacco Use Smoking status: Never Smokeless tobacco: Never Vaping Use Vaping status: Never Used Substance Use Topics Alcohol use: No Drug use: No Physical Exam: BP 103/54 (BP Position: Sitting, BP Cuff Size: Large Adult) Pulse 70 General Appearance: Well appearing, alert, in no acute distress, well-hydrated, well nourished. Anorectal: External exam reveals External hemorrhoids with small ANKUSH on left lateral one. Digital rectal exam reveals normal sphincter tone, mild augmentation with squeeze, slight relaxation with valsalva Crop Picker present: Yes, Brie goodman Anoscopy: reveals 3 columns of small internal hemorrhoids with no evidence of bleeding. External small non thrombosed hemorrhoids. The patient was placed in chest-knee position. After digital exam with a lubricated finger, the scope was easily inserted. No hemorrhoids were noted. Otherwise normal mucosa was noted. Anoscopy completed. The sensitive examination was discussed with the Patient or Patient's Authorized Repairer General. As applicable, any other physician, advance practice provider, medical student, or other health professional student that will be observing or involved in the sensitive examination for educational or training purposes was discussed with the Patient or Authorized Repairer General. The Patient or Authorized Repairer General has agreed to proceed with the sensitive examination. (Sensitive examination includes inspection and/or palpation of the breasts, pelvis, prostate and anorectal regions) Colonoscopy on 03/05/24 with Della Cooper - Preparation of the colon was fair. - The examined portion of the ileum was normal. - Three 1 to 2 mm polyps in the ascending colon, removed with a cold biopsy forceps. Resected and retrieved. - One 2 mm polyp in the descending colon, removed with a cold biopsy forceps. Resected and retrieved. - Diverticulosis in the sigmoid colon. - Internal hemorrhoids. - The examination was otherwise normal on direct and retroflexion views. - Etiology of hematochezia is diverticular vs. large hemorrhoids (favored to be the latter). No luminal evidence of GI bleeding. Pathology: A. Colon, ascending, polyp x 3, biopsy: - Fragments of tubular adenoma. B. Colon, descending, polyp, biopsy: - Tubular adenoma. Assessment Assessment and Plan: Junior Lanza is a 83 year old man with h/o CAD s/p CABG/ afib, previously on eliquis, CHF, PPM, CKD with recent admission d/t lower GI bleeding. Work up with colonosocpy demonstrating internal hemorrhoids, now here for follow up. No further bleeding episodes and currently not on eliquis. On exam today, patient without notable internal hemorrhoids. Symptoms improved with conservative management. Does have external hemorrhoids with small ANKUSH. Discussed importance of continuing with optimizing his BM with fiber/water and optimizing toilet habits inlcuding limiting toilet time. No banding or surgical intervention indicated at this time Hydrocortisone prn for flare ups RTC prn Medical Decision Making: Data Reviewed: Tests & Documents Reviewed/ordered: Review of prior notes from Dr. Bowie Review of Pathology Review of Procedures / Tests: Colonoscopy I have independently interpreted: n/a I have discussed Junior Lanza's treatment plan and/or results with patient and his , Alma Rosa. Risk of morbidity, mortality and/or complications of treatment plan: radha Steel MD Colorectal Surgery documented in this encounter [facility] 04-14-2024 Note [facility] 04-01-2024 Telephone encounter Note Patient's called. He has been out of Metoprolol for about a week. Ashley Animal Killer II April 01, 2024 [facility] 04-01-2024 Miscellaneous Notes Patient's called. He has been out of Metoprolol for about a week. Ashley Animal Killer II April 01, 2024 Patient called to request a refill on the medication(s) below: Requested Prescriptions Pending Prescriptions Disp Refills metoprolol succinate ER (TOPROL XL) 50 mg 24 hr tablet 90 tablet 4 Sig: Take 1 tablet by mouth once daily. gabapentin (NEURONTIN) 300 mg capsule Sig: Take 1 capsule by mouth two times a day. PHARMACY NAME [facility] Physician's Name: Last seen in office: 02.26.24 Sent high priority pt is out of medication If last appointment greater than one year or no follow up scheduled, sent to schedulers Bethanie Barillas 03/30/2024 documented in this encounter [facility] 03-30-2024 Telephone encounter Note Patient called to request a refill on the medication(s) below: Requested Prescriptions Pending Prescriptions Disp Refills metoprolol succinate ER (TOPROL XL) 50 mg 24 hr tablet 90 tablet 4 Sig: Take 1 tablet by mouth once daily. gabapentin (NEURONTIN) 300 mg capsule Sig: Take 1 capsule by mouth two times a day. PHARMACY NAME [facility] Physician's Name: Last seen in office: 02.26.24 Sent high priority pt is out of medication If last appointment greater than one year or no follow up scheduled, sent to schedulers Yes Mady Barillas 03/30/2024 [facility] 03-19-2024 History of Present illness Narrative Images from the original note were not included. [facility] [place] [facility] Department of Cardiovascular Medicine SECTION OF CARDIOVASCULAR IMAGING OUTPATIENT VISIT DATE March 19, 2024 OUTPATIENT VISIT TYPE ESTABLISHED PRIMARY CARE PHYSICIAN: Michel Alcazar (Zeeshan) [address] [place] [address] REFERRING PHYSICIAN: Reji Bowie [address] [place] [id number] CHIEF COMPLAINT: Hospital follow up HISTORY OF PRESENT ILLNESS: Mr. Lanza is a 83 year old male who presents today for hospital follow-up visit. He is an established patient of Dr. Sanchez and was seen by Osiel Machado CNP on 02/25. He was transferred to the ED for dizziness and hypotension (BP 73/50). Admitted from 02/25-03/06. Hospital course was as follows: Stable from a cardiovascular standpoint we have not noted any hypotension while admitted as inpatient. Hold long acting nitrates given hypotensive presentation and has not experienced any anginal symptoms during admission or recently. Has continued to have low-volume blood bowel movements even off AC/apixaban. Had bleeding with IV heparin. Was on an atypical dose of apixaban-dosed daily as outpatient at 2.5 mg. Hgb has been stable>48 hours. Colonoscopy shows likely etiology of hematochezia internal hemorrhoids versus diverticular. Given multiple admissions this month for GI bleeding, at this point would continue single antiplatelet given CAD history and given low AFIB burden and recurrent GI bleeding can re-discuss risks/benefits of re-starting OAC as outpatient versus referral for LAAC as outpatient versus accepting stroke risk. GI recommend outpatient colorectal surgery eval especially if bleeding persists/for patient to discuss procedural options for management of internal hemorrhoids. Discharge to home today Patient presents with his today who helps give history. Since discharge, he has been doing well. He has had no cardiac symptoms. No episodes of dizziness or syncope. They do not take BP at home. Has had no bleeding issues. He denies chest pain, shortness of breath, orthopnea, cough, edema, palpitations, PND, lightheadedness or syncope. PAST MEDICAL HISTORY Diagnosis Date A-fib ([facility]) CAD (coronary artery disease) s/p CABG 4v, pacemaker CKD (chronic kidney disease) stage 3, GFR 30-59 ml/min ([facility]) Congestive heart failure ([facility]) Diabetes mellitus type 2 in obese GERD (gastroesophageal reflux disease) Hyperlipidemia Hypertension PAST SURGICAL HISTORY Procedure Laterality Date CABG (4) VEIN GRAFTS & ARTERIAL GRAFT(S) 2002? PACEMAKER 2013 PAST SURGICAL HISTORY OF knee SOCIAL HISTORY Social History Tobacco Use Smoking status: Never Smokeless tobacco: Never Vaping Use Vaping status: Never Used Substance Use Topics Alcohol use: No Drug use: No FAMILY HISTORY Problem Relation Age of Onset Coronary Artery Disease Mother Coronary Artery Disease Father ALLERGIES: ALLERGIES Allergen Reactions Iv Dye [Iodinated C* Other: See Comments May cause kidney problems Sulfa (Sulfonamide * Itching MEDICATIONS: spironolactone (ALDACTONE) 25 mg tablet Take 0.5 tablets by mouth once daily. lisinopril (ZESTRIL) 5 mg tablet Take 1 tablet by mouth once daily. aspirin 81 mg chewable tablet Take 1 tablet by mouth once daily. docusate sodium (COLACE) 100 mg capsule Take 1 capsule by mouth two times a day as needed. dkupbufm-irwyzbkdor-gdsqidvmz (NEOSPORIN) 3.5mg-400 unit- 5,000 unit/gram Apply to affected area three times a day. atorvastatin (LIPITOR) 40 mg tablet Take 1 tablet by mouth daily at bedtime. metoprolol succinate ER (TOPROL XL) 50 mg 24 hr tablet Take 1 tablet by mouth once daily. ONETOUCH ULTRA TEST test strip once daily. USE TO TEST BLOOD SUGAR DAILY nitroglycerin sublingual (NITROQUICK) 0.4 mg SL tablet Dissolve 1 tablet under the tongue every 5 minutes as needed for chest pain. Echinacea 400 mg cap Take by mouth. cyanocobalamin (VITAMIN B-12) 1,000 mcg [...] mg cap Take 1,000 tablets by mouth. furosemide (LASIX) 20 mg tablet Take 1 tablet by mouth once daily. Take one pill daily. Take an additional pill as needed to keep weight stable. glimepiride (AMARYL) 4 mg tablet Take 1 tablet by mouth once daily. At noon REVIEW OF SYSTEMS: GENERAL: Negative for: Weight [...] Frequent urination, Frequent thirst PHYSICAL EXAMINATION: BP 95/54 (BP Site: Left Arm, BP Position: Sitting, BP Cuff Size: Large Adult) Pulse 71 Ht 185.4 cm (6' 1 ) Wt 106 kg (233 lb 11 oz) SpO2 95% BMI 30.83 kg/m General: Well appearing, in no acute distress. Skin: No clubbing, no cyanosis. Eyes: Extra ocular movements intact Oropharynx: Teeth in good repair. Neck: No jugular venous distention Lungs: Clear to auscultation bilaterally, no wheezing or rhonchi. Heart: Regular rhythm, S1, S2 normal, no S3, no S4, no heaves, no rub and no murmur. Abdomen: Soft, nontender Extremities: No peripheral edema Neuro: Oriented to person, place and time, alert, cooperative, gait coordinated. CARDIOVASCULAR MEDICINE TESTING: Labs: Latest Ref Rng 03/19/2024 WBC 3.70 - 11.00 k/uL 7.94 RBC 4.20 - 6.00 m/uL 3.65 (L) Hemoglobin 13.0 - 17.0 g/dL 11.3 (L) Hematocrit 39.0 - 51.0 % 35.3 (L) MCV 80.0 - 100.0 fL 96.7 MCH 26.0 - 34.0 pg 31.0 MCHC 30.5 - 36.0 g/dL 32.0 RDW-CV 11.5 - 15.0 % 13.5 Platelet Count 150 - 400 k/uL 225 MPV 9.0 - 12.7 fL 9.8 Absolute nRBC <0.01 k/uL <0.01 Legend: (L) Low Last ECHO Result Conclusion ECHO LIMITED Collected: 02/27/2024 1:14 PM (Final result) Impression: CONCLUSIONS: - Technically difficult exam due to suboptimal positioning. - Exam indication: Limited for LV function - The left ventricle is normal in size. There is left ventricular hypertrophy. Left ventricular systolic function is mildly decreased. EF = 50 5% (2D biplane) There is akinesis in the LCx territory. - Exam was compared with the prior echocardiographic exam performed on 10/04/2021. Similar distribution of wall motion abnormality. Improved global LVEF. * * * Final * * * Last EKG Result Conclusion ECG COMPLETE Collected: 03/04/2024 4:55 PM (Preliminary result) Impression: AV DUAL-PACED RHYTHM ABNORMAL ECG There were no tests performed for review. IMPRESSION: Mr. 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 Mr. Lanza has been doing well since discharge. Has had no cardiac issues. BP is on the soft side but stable today 95/54. Denies dizziness or syncope. He is euvolemic on exam, lungs CTA, RRR. Hemoglobin is stable and patient has had no issues with bleeding. Upon reviewing medication list, he has not been taking lasix. Current cardiac regimen includes atorvastatin 40 mg daily, aspirin 81 mg daily, lisinopril 5 mg daily, metoprolol succinate 50 mg daily, and spironolactone 25 mg daily. With his history of hypotension and being euvolemic on exam, reasonable to keep him off lasix for now. Advised to take 20 mg lasix on an as needed basis for LE edema. Patient will be seeing EP in April to discuss getting back on AC PLAN AND RECOMMENDATIONS: - Continue current medications with no changes - Take lasix 20 mg as needed for LE edema - Monitor BP at home regularly - Follow up with EP in April to discuss AC - Follow up with Dr. Sanchez in July as scheduled - Advised pt to reach out to Dr. Sanchez's office in the meantime for any questions/concerns I personally interviewed, confirmed and edited the above information if obtained by others. CONTACT INFORMATION: Denisse Howard PA-C documented in this encounter [facility] 03-19-2024 Note [facility] 03-12-2024 Telephone encounter Note Patient called to request a refill on the medication(s) below: Requested Prescriptions Pending Prescriptions Disp Refills spironolactone (ALDACTONE) 25 mg tablet 45 tablet 4 Sig: Take 0.5 tablets by mouth once daily. lisinopril (ZESTRIL) 5 mg tablet 90 tablet 4 Sig: Take 1 tablet by mouth once daily. PHARMACY NAME [facility] Physician's Name: Lakesha Sanchez M.D. Last seen in office: 02/26/2024 If last appointment greater than one year or no follow up scheduled, sent to schedulers Bethanie Barillas 03/12/2024 [facility] 03-12-2024 Miscellaneous Notes Patient called to request a refill on the medication(s) below: Requested Prescriptions Pending Prescriptions Disp Refills spironolactone (ALDACTONE) 25 mg tablet 45 tablet 4 Sig: Take 0.5 tablets by mouth once daily. lisinopril (ZESTRIL) 5 mg tablet 90 tablet 4 Sig: Take 1 tablet by mouth once daily. PHARMACY NAME [facility]inder [facility] Physician's Name: Lakesha Sanchez M.D. Last seen in office: 02/26/2024 If last appointment greater than one year or no follow up scheduled, sent to schedulers Yes Mady Barillas 03/12/2024 documented in this encounter [facility] 03-09-2024 Telephone encounter Note 1. Have you noticed any increase in shortness of breath since you left the hospital? no 2. Have you noticed any increased swelling in your feet, ankles, or belly? Skip for vascular pts no 3. Have you gained more than 2-3 pounds since discharge? Skip for vascular & EP pts no 4. Have you noticed any change in your incision, wound, IV sites since you were discharged as we want you to be aware of any signs of infection (fevers, chills, redness, warmth, swelling, increased tenderness, discharge)? no 5. Are you having any increased pain since discharge? If yes: What type of pain and where? (pressure, sharp pain, dull pain, etc.) No 6. Have you had any unplanned trips to the emergency department or hospital since you were discharged? If yes - why? no 7. Did you fill all of the prescribed medications? If no, do you need help filling your prescription? (Figure out why they re not filled) Yes 8. Do you have any questions about your medications? No 9. Do you have a doctor s appointment scheduled or is someone working on getting you a follow-up appointment? Yes Additional Comments: Pt instructed to contact 24-hour nurse hotline [phone] for any questions or concerns. Pt verbalized understanding. PD nurse confirmed/verified patient's and full name. All clear, closing statement given. Belen Hall, RN [facility] 03-09-2024 Miscellaneous Notes 1. Have you noticed any increase in shortness of breath since you left the hospital? no 2. Have you noticed any increased swelling in your feet, ankles, or belly? Skip for vascular pts no 3. Have you gained more than 2-3 pounds since discharge? Skip for vascular & EP pts no 4. Have you noticed any change in your incision, wound, IV sites since you were discharged as we want you to be aware of any signs of infection (fevers, chills, redness, warmth, swelling, increased tenderness, discharge)? no 5. Are you having any increased pain since discharge? If yes: What type of pain and where? (pressure, sharp pain, dull pain, etc.) No 6. Have you had any unplanned trips to the emergency department or hospital since you were discharged? If yes - why? no 7. Did you fill all of the prescribed medications? If no, do you need help filling your prescription? (Figure out why they re not filled) Yes 8. Do you have any questions about your medications? No 9. Do you have a doctor s appointment scheduled or is someone working on getting you a follow-up appointment? Yes Additional Comments: Pt instructed to contact 24-hour nurse hotline [phone] for any questions or concerns. Pt verbalized understanding. PD nurse confirmed/verified patient's and full name. All clear, closing statement given. Belen Hall RN documented in this encounter [facility] 03-09-2024 History of Present illness Narrative TRANSITION CARE MANAGEMENT (TCM) HEART FAILURE PHARMACY CONTACT Provider Action/FYI: TCM Medication Reconciliation partially completed for patient. See medication list table below for details. Medications discussed per patient preference outlined in bold in table below. Patient Workup: HF medication classes present on medication list: DAVID/ARB/ARNI YES - lisinopril Beta priya YES - metoprolol succinate ER Aldosterone antagonist YES - spironolactone SGLT2i NO Hydralazine/Isosorbide NO Ivabradine NO Loop diuretics YES - furosemide Digoxin NO New HF medication class(es) added this admission: No (Patient to be counseled on new medications if full medication review completed) Last documented LVEF: LV Ejection Fraction (%) Date Value 02/27/2024 50 Last documented weight: Last Wt 03/06/24 106.4 kg (234 lb 9.1 oz) Patient was sent a message via [employer] including the link to the [facility] Heart Failure education video: No Initial contact with patient post discharge, spoke to patient and spouse, Alma Rosa,, and verified that any applicable caregiver is active in patient's medical care. Patient identified by name and . Summary: -Pt discharged from [facility] on 03/06/24. -Medication review done Partial medication review completed - per patient preference Patient Concerns: Patient and his were both present on the phone call. confirms they received the new medications and are aware of the changes to patient's medication list. No questions or concerns at this time. Declined full medication review. ROS: Denies new or worsening shortness of breath at rest and on exertion (orthopnea, PND, bendopnea, wheezing/coughing). Denies new or worsening symptoms of edema (abdominal, early satiety, lower extremity, or abnormal weight gain). Denies new or worsening CP, palpitations, LARA, blurred vision. Denies new or worsening dizziness, lightheadedness, syncope. Denies new or worsening N/V, diarrhea, abdominal pain. Denies potential medication adverse effects. Red flag symptom(s) identified during call: No History of Present Illness: The following content has been copied and pasted from patient's discharge summary. If discharge summary unavailable, After Visit Summary or last pertinent inpatient notes are copied and pasted. Mr. Lanza is an 83 year old male with pertinent past medical history of: CAD s/p CABG x4 (early 1999s, ischemic cardiomyopathy s/p CRUSHER AND BLENDER OPERATOR-D 03/23/14, low-burden PAF (eliquis- once daily only due to lower GI bleeding), HTN, HLD, DM, and CKD, presenting with chief complaint of symptomatic hypotension from outpatient cardiology clinic which improved with IV fluids and acute on chronic anemia with c/f GIB. The following is a list of problems that the patient presented with and/or developed during the hospitalization and the management of each: #Hypotension - resolved Symptomatic hypotension in cardiology clinic, possibly volume depletion vs GDMT related. Improved with IV fluid in the ED. Management: Restarted home meds as able, see below #Acute on chronic blood loss anemia, suspected lower GI source #Hemorrhoids - Hb trended and remained stable. Iron studies with likely iron deficiency in setting of CKD (Tsat 21%, ferritin 52). - Eliquis held upon admission - Pt reported Sigmoidoscopy done on 02/24 - Internal hemorrhoids and unremarkable ( no prep was done) - Sigmoidoscopy report obtained and added in POC note - Restarted aspirin 02/27, monitored for bleeding - Underwent Heparin challenge 03/01, had an episode of GI Bleed, heparin discontinued - Had recurrent episodes of minimal bright red blood per rectum as reported by his Management: - Colonoscopy done on 03/05/2024 with fragments of tubular adenoma, no surveillance colonoscopy recommended at this time - Follow up with PCP and GI outpatient - GI consulted, appreciate recommendations: Colonoscopy 03/05 shows diverticulosis and large hemorrhoids. His rectal bleeding is almost certainly hemorrhoidal in nature based on his history. Primary to discharge on aspirin only given recurring bleeding prohibiting therapeutic AC at this point. Plan: - See hemorrhoidal care below and feel free to add to his discharge summary. - He could follow up in the OP with [facility] to assess if these can be managed further (banding, etc) to reduce his bleeding. If this is the case, he could revisit the risk v benefit discussion regarding AC. 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) - On GDMT - Lisinopril 2.5 - Isosorbide - Spironolactone - Metop succ - Not on SGLT - Lasix 20 mg daily scheduled - On aspirin, plavix, which was held iso GI bleed ( last dose Saturday02/23/2024) Management: - Restarted Aspirin on 02/28/2024 - Restarted home metoprolol succinate 50mg every day, restarted spironolactone 12.5mg - Started Spironolactone 02/29/2024 - Lisinopril held upon admission, restarted on 03/01/2024 - resume lasix 20 on discharge - discontinued plavix - discontinued imdur given hypotension on presentation #pAFIB - low-burden - on once daily apixaban as outpatient CHADS2-Vasc Score Breakdown 6 Total Score 2 Age >= 75 years old 1 History of CHF 1 History of hypertension 1 History of diabetes mellitus 1 History of vascular disease Management: - Held eliquis iso GI bleed (last dose Saturday02/24/2024) - Failed heparin challenge 03/01/2024 with an episode of bloody BM - Discontinued eliquis - Discharge on Aspirin daily - Per GI, should follow up with [facility] and if hemorrhoids further managed (e.g. banding), could re-discuss risks vs benefits of AC #?LAUREN in setting of stage IIIB CKD - resolved - Cr 1.79 on admission (Bl ~1.5) - Hypertension: controlled, on lisinopril 5mg daily, metoprolol 50mg daily, spironolactone 12.5mg daily and lasix 20mg daily - Ca/Phos: WNL - PTH: WNL Management: - Monitored Cr daily, Cr remained at baseline upon monitoring ranging from 1.42 to 1.59 during the hospitalization - Discontinued Hydralazine on 02/29/2024 - Started Spironolactone 12.5 OD on 02/29/2024 - Lisinopril held upon admission, restarted 03/01/2024 #Delirium - resolved Likely in-hospital delirium on background dementia. Improving with reorientation from family Management: - Monitored during admission - Delirium precautions #BPH Continued tamsulosin #T2DM On Glimepride Management: SSI while inpatient # HLD On statin 40 Management: Continued atorvastatin #Deranged TSH Both hyperthyroidism and hypothyroidism listed a problems in OSH note No thyroid medication on med list TSH 6.19, T3 2.6, T4 1 Management: Outpatient follow up Medication Reconciliation: Legend: Stopped, New, Changed, Added to list Medication List Medication Directions Comments Action/Plan aspirin 81 mg chewable tablet Take 1 tablet by mouth once daily. Taking as prescribed without any issues atorvastatin (LIPITOR) 40 mg tablet Take 1 tablet by mouth daily at bedtime. CALCIUM CARBONATE (CORAL CALCIUM ORAL) Take by mouth. Sig? Cinnamon Bark 500 mg cap Take 1,000 tablets by mouth. Sig? Discontinued: 03/06/2024 1:06 PM Aware cyanocobalamin (VITAMIN B-12) 1,000 mcg tab Take 1,000 mcg by mouth once daily. docusate sodium (COLACE) 100 mg capsule Take 1 capsule by mouth two times a day as needed. Taking as prescribed without any issues Echinacea 400 mg cap Take by mouth. Sig? Discontinued: 03/06/2024 1:06 PM Aware furosemide (LASIX) 20 mg tablet Take 1 tablet by mouth once daily. Take one pill daily. Take an additional pill as needed to keep weight stable. gabapentin (NEURONTIN) 300 mg capsule Take 300 mg by mouth twice daily. glimepiride (AMARYL) 4 mg tablet Take 1 tablet by mouth once daily. At noon Discontinued: 03/06/2024 1:06 PM Aware lisinopril (ZESTRIL) 5 mg tablet Take 1 tablet by mouth once daily. Last 3 Encounter BP Readings: Date: BP: 03/05/202402/26/2024 12084 02/26/2024 73/50 Potassium Date Value Ref Range Status 03/06/2024 4.8 3.7 - 5.1 mmol/L Final metoprolol succinate ER (TOPROL XL) 50 mg 24 hr tablet Take 1 tablet by mouth once daily. Last 3 Encounter BP Readings: Date: BP: 03/05/202402/26/2024 12002/26/2024 73/50 MULTIVITAMIN-FERROUS FUMARATE-FOLIC ACID 18 MG-400 MCG TABLET Take 1 tablet by mouth once daily. deieishr-yrnyhmvukd-czyjbffwj (NEOSPORIN) 3.5mg-400 unit- 5,000 unit/gram Apply to affected area three times a day. Taking as prescribed without any issues nitroglycerin sublingual (NITROQUICK) 0.4 mg SL tablet Dissolve 1 tablet under the tongue every 5 minutes as needed for chest pain. ONETOUCH ULTRA TEST test strip once daily. USE TO TEST BLOOD SUGAR DAILY spironolactone (ALDACTONE) 25 mg tablet Take 0.5 tablets by mouth once daily. Last 3 Encounter BP Readings: Date: BP: 03/05/2024 9755 02/26/2024 12084 02/26/2024 73/50 Potassium Date Value Ref Range Status 03/06/2024 4.8 3.7 - 5.1 mmol/L Final tamsulosin ER (FLOMAX) 0.4 mg cp24 Take 0.4 mg by mouth daily at bedtime. Preferred pharmacy: [email or web address] [address] - [place] [address] - [address] [facility] - [phone] [facility] [address] [facility] [address] [facility] [address] Estimated Creatinine Clearance: 45.6 mL/min (A) (based on SCr of 1.61 mg/dL (H)). Estimated Glomerular Filtration Rate (mL/min/1.73m ) Date Value 03/06/2024 42 (L) eGFR- (no units) Date Value 10/12/2020 51 10/12/2020 52 Additional follow up: Next 5 Appointments Date and Time Provider Department Dept Phone 03/10/2024 11:30 AM Rossy Wright KIDNEY MED [facility] REJ [phone] 03/19/2024 3:30 PM Lita Grayson S CARD IMAGING MAIN [phone] 04/14/2024 1:20 PM Kevin SteelS [facility] REJ [phone] 05/04/2024 12:45 PM EKGJ1-4 MAIN EKG MAIN J1-4 05/04/2024 1:30 PM DEVICE CLINIC CARD EP DEVICE CLINIC MAIN [phone] Interventions Made: None Pharmacist Recommendations Made None Care Coordination: None at this time Time spent on patient: 30-45 minutes Quiana Zavala RPh March 09, 2024 10:18 AM documented in this encounter [facility] 03-09-2024 Note [facility] 03-06-2024 Note [facility] 03-05-2024 Note [facility] 03-05-2024 Note [facility] 03-05-2024 Note HNO ID: [id number] Author: MARÍA AL, JOSE Service: Nursing Author Type: Registered Nurse Type: Nursing Progress Note Filed: 03/05/2024 11:52 Note Text: Dr. Cooper at bedside. [facility] 03-04-2024 Note [facility] 03-04-2024 Note [facility] 03-03-2024 Note [facility] 03-02-2024 Note [facility] 03-01-2024 Note [facility] 02-29-2024 Note [facility] 02-28-2024 Note HNO ID: [id number] Author: IFEANYI MCNAMARA MD Service: Cardiovascular Medicine Author Type: Resident Type: Plan of Care Filed: 02/28/2024 17:45 Note Text: OSH record from [facility], flex sig report [facility] 02-28-2024 Note [facility] 02-28-2024 Note [facility] 02-28-2024 Note [facility] 02-26-2024 Note HNO ID: [id number] Author: MICHAEL THOMSON RT(R) Service: ? Author Type: Technologist Type: Progress Notes Filed: 02/26/2024 10:54 Note Text: xray: chest [facility] 02-26-2024 History of Present illness Narrative Images from the original note were not included. [facility] [place] [facility] Department of Cardiovascular Medicine SECTION OF CLINICAL CARDIOLOGY OUTPATIENT VISIT DATE February 26, 2024 OUTPATIENT VISIT TYPE ESTABLISHED PRIMARY CARE PHYSICIAN: Michel Alcazar MD ([facility]) [address] [place] [address] REFERRING PHYSICIAN: Lakesha Sanchez [address] [facility] [address] CHIEF COMPLAINT: Established patient follow up HISTORY OF PRESENT ILLNESS: Mr. Lanza is a 83 year old male who presents today for a cardiovascular medicine follow-up visit. 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 Junior Lanza is an established patient of Dr. Sanchez and was last evaluated in the office on 07/31/23 with impression at that time as follows: Mr. Lanza is a 83 year old male presents [...] return to see me in 1 year. INTERVAL HISTORY Presented to [place] ED 2 days ago due to rectal bleeding, clopidogrel and eliquis were stopped at this time. Was discharged yesterday with stable blood counts per hs . Unable to see any records from this admission. Today, patient is very dizzy. Vitals checked and BP 73/50. CMET/ZARIA activated. Patient taken to ED via ZARIA. PAST MEDICAL HISTORY Diagnosis Date A-fib ([facility]) CAD (coronary artery disease) s/p CABG 4v, pacemaker CKD (chronic kidney disease) stage 3, GFR 30-59 ml/min ([facility]) Diabetes mellitus type 2 in obese GERD (gastroesophageal reflux disease) Hyperlipidemia Hypertension PAST SURGICAL HISTORY Procedure Laterality Date CABG (4) VEIN GRAFTS & ARTERIAL GRAFT(S) 2002? PACEMAKER 2013 PAST SURGICAL HISTORY OF knee SOCIAL HISTORY Social History Tobacco Use Smoking status: Never Smokeless tobacco: Never Vaping Use Vaping status: Never Used Substance Use Topics Alcohol use: No Drug [...] 1,000 tablets by mouth. REVIEW OF SYSTEMS: Not completed PHYSICAL EXAMINATION: BP (!) 73/50 Assessment deferred due to critical illness CARDIOVASCULAR MEDICINE TESTING: No Cardiovascular testing perfomed today. Last EKG Result Conclusion ECG COMPLETE Collected: 03/27/2023 10:14 AM (Preliminary result) Impression: AV DUAL-PACED RHYTHM WITH OCCASIONAL VENTRICULAR-PACED COMPLEXES AND WITH OCCASIONAL PREMATURE VENTRICULAR COMPLEXES ABNORMAL ECG IMPRESSION: Mr. Lanza is a 83 year old male who presents today for a cardiovascular medicine follow-up visit. 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 PLAN AND RECOMMENDATIONS: Patient transferred to ED via ZARIA for dizziness, low blood pressure (73/50), and chest pain. Joanne Baumann APRN.WORKING SECOND HAND ATTESTATION: I saw and evaluated Mr Lanza along with Joanne Baumann CNP. Patient was recently admitted to local ED ([facility] -unable to view records) where he reportedly had bright red blood per rectum. His Eliquis and Plavix was held at that time. Reportedly his blood counts were stable and he was discharged. He reports today for general follow-up and reported being extremely dizzy on the way back to the exam room. BP was initially obtained was 73/50. CMET/ZARIA was activated. ZARIA team transported patient to ED. I spent a total of 25 minutes on the date of the service which included preparing to see the patient, hwhc-wz-wlws patient care, completing clinical documentation, obtaining and/or reviewing separately obtained history, communicating with other HCPs (not separately reported), independently interpreting results (not separately reported), communicating results to the patient/family/caregiver, and care coordination (not separately reported). Osiel Machado APRN.WORKING SECOND HAND documented in this encounter [facility] 02-26-2024 Note [facility] 11-22-2023 Telephone encounter Note Per Dr Sanchez: No, wouldn't be a reason to stop it. Bleeding , he should talk to someone to see how they are going to treat that. Pcp? Called and spoke with daughter. Told her above info. She verbalized an understanding. Suzan Zimmer RN [facility] 11-22-[address] Sanchez: No, wouldn't be a reason to stop it. Bleeding , he should talk to someone to see how they are going to treat that. Pcp? Called and spoke with daughter. Told her above info. She verbalized an understanding. Suzan Zimmer RN November 22, 2023 Patient Contact Number: [phone] Patient last seen within the last year: Yes Date of last office visit: 07/31/23 Reason For Call: Patient called in wanting to know if her should stop taking Eliquis, because his Hemorid came back and he was experiencing some bleeding in his stool last night. He was seen in the ER, and was discharged Physician: Lakesha Sanchez MD Patient was informed that non-urgent calls may be returned within the next three business days. Yes Danitza Valera documented in this encounter [facility] 11-22-2023 Telephone encounter Note November 22, 2023 Patient Contact Number: [phone] Patient last seen within the last year: Yes Date of last office visit: 07/31/23 Reason For Call: Patient called in wanting to know if her should stop taking Eliquis, because his Hemorid came back and he was experiencing some bleeding in his stool last night. He was seen in the ER, and was discharged Physician: Lakesha Sanchez MD Patient was informed that non-urgent calls may be returned within the next three business days. Yes Danitza Valera [facility] 09-03-2023 History of Present illness Narrative Pt is an 83 yo [...] follow up in 6 months Rossy Wright APRN.WORKING SECOND HAND documented in this encounter [facility] 09-03-2023 Note [facility] 08-01-2023 Note [facility] 08-01-2023 History of Present illness Narrative Images from the original note were not included. [facility] [place] [facility] Department of Cardiovascular Medicine SECTION OF CLINICAL CARDIOLOGY OUTPATIENT VISIT DATE August 01, 2023 OUTPATIENT VISIT TYPE ESTABLISHED PRIMARY CARE PHYSICIAN: Michel Alcazar MD ([facility]) [address] [place] [address] REFERRING PHYSICIAN: No referring provider defined for this encounter. CHIEF COMPLAINT: Obstructive coronary artery disease complicated by myocardial infarction Ischemic cardiomyopathy Status post coronary artery bypass graft CRUSHER AND BLENDER OPERATOR-D placement Atrial fibrillation on Apixaban low dose complicated by gastrointestinal/ ?rectal bleed HISTORY OF PRESENT ILLNESS: Mr. Lanza is a 83 year old male who [...] above PAST MEDICAL HISTORY Diagnosis Date A-fib ([facility]) CAD (coronary artery disease) s/p CABG 4v, pacemaker CKD (chronic kidney disease) stage 3, GFR 30-59 ml/min ([facility]) Diabetes mellitus type 2 in [...] Take 0.5 tablets by mouth once daily. O[place]jo ULTRA TEST test strip once daily. USE [...] have personally reviewed the Electrocardiogram. IMPRESSION: Mr. Lanza is a 83 year old male presents [...] CONTACT INFORMATION: Lakesha Sanchez M.D., F.A.C.C. Staff Corporate Scheduler [facility] Desk [place] [address] Office - [phone] extension [phone] Office Appointments: [phone] -[phone] extension [phone] documented in this encounter [facility] 07-22-2023 Miscellaneous Notes Received records from [facility] - ED visit 07-09-2023 Uploaded to scanned documents Appt on 07/31/2023 Last appt - 12/26/2022 Donna Torres Adm Asst III, Clinical Cardiology documented in this encounter [facility] 03-27-2023 History of Present illness Narrative Images from the original note were not included. [facility] [place] [facility] Department of Cardiovascular Medicine SECTION OF CARDIAC PACING and ELECTROPHYSIOLOGY OUTPATIENT VISIT DATE March 27, 2023 OUTPATIENT VISIT TYPE ESTABLISHED PRIMARY CARE PHYSICIAN: Michel Alcazar MD ([facility]) [address] [place] [address] CHIEF COMPLAINT: CRUSHER AND BLENDER OPERATOR-D HISTORY OF PRESENT ILLNESS/ NURSING INTAKE HISTORY: Mr. Lanza is a 82 year old male who presents today for follow-up visit for device management. He has a history of CAD s/p CABG x4 (early , ischemic cardiomyopathy s/p CRUSHER AND BLENDER OPERATOR-D 03/23/14, low-burden PAF (eliquis- once daily only due to lower GI bleeding), HTN, HLD, DM, and CKD. Last echo 04/2021 EF 30-35%. He was last seen in office 08/01/[address] Ivey. He had generator change 10/18/21. Device check today shows no new arrhythmias, BiV pacing 99%. He reports he has been feeling well overall. He endorses shortness of breath with exertion. He denies chest pain, palpitations, edema, lightheadedness or syncope. PAST MEDICAL HISTORY Diagnosis Date A-fib ([facility]) CAD (coronary artery disease) s/p CABG 4v, pacemaker CKD (chronic kidney disease) stage 3, GFR 30-59 ml/min ([facility]) Diabetes mellitus type 2 in obese ([facility]) GERD (gastroesophageal reflux disease) Hyperlipidemia [...] Take 0.5 tablets by mouth once daily. [email or web address] ULTRA TEST test strip once daily. USE [...] clinic evaluations. Janneth Gamble RN IMPRESSION: Mr. Lanza is a 82 year old male with history of ICM and CRUSHER AND BLENDER OPERATOR-D who presents for routine device follow-up. [...] La Rosa MD documented in this encounter [facility] 03-05-2023 Miscellaneous Notes Called patient. He had lab work done with UA and UPCR/ UACR locally. Received results today and did not show protein loss. UACR was 25.7 and UPCR was 0.12. Savanah Olmos DO March 05, 2023, 3:57 PM documented in this encounter [facility] 03-01-2023 History of Present illness Narrative HPI: Mr. Lanza is a 82 year old male who presents for a follow-up of CKD stage III with history of DM, HTN, CAD, last office visit in 07/2022 with Rossy Trinidad with no changes made at the time. [...] 1.5-1.8mg/dL) PAST MEDICAL HISTORY Diagnosis Date A-fib ([facility]) CAD (coronary artery disease) s/p CABG 4v, pacemaker CKD (chronic kidney disease) stage 3, GFR 30-59 ml/min ([facility]) Diabetes mellitus type 2 in obese ([facility]) GERD (gastroesophageal reflux disease) Hyperlipidemia [...] 5 minutes as needed for chest pain. [email or web address] ULTRA TEST test strip once daily. USE [...] Negative Ketones, Urine Trace, Negative Negative Specific [place], Ur 1.005 - 1.030 1.016 Hemoglobin/Blood,Ur Negative, [...] Value Date HEPSABQ Negative 12/05/2016 ASSESSMENT/PLAN: Mr. Lanza is a 82 year old male who [...] ratio Follow up in 6 months with anup Watson prn. Savanah Olmos DO documented in this encounter [facility] 03-01-2023 Instructions Savanah Olmos DO - 03/01/2023 [...] if able to, please call me at [phone] if you are ordered a test requiring iodinated contrast Please see Rossy Wright back in 6 months with labs prior to visit I did give you two order forms for lab work - one to do now and one prior to your visit with Rossy documented in this encounter [facility] 02-25-2023 Miscellaneous Notes The requested document has been faxed to [phone]. Received a fax confirmation of OK on 02/25/23. I called and spoke with Micheal. I informed him of the below message from Rossy Wright. Micheal agreed with plan as stated below. Ifeanyi Gamble of Junior Lanza is calling Rossy Wright APRN.[facility] today to request lab orders be faxed to [facility] at [phone]. They need this shane because they have an office visit Saturday. They want to go to the lab tomorrow if possible. Please call Alma Rosa when orders are faxed. They will fax results to [facility]. No chief complaint on file. Patient has been identified by name and birthdate. Duration of symptoms: Person calling: spouse: Alma Rosa Call patient at: Home [phone] (home) [phone] (cell) Was an appointment scheduled: Closing statement: Beryl Anderson documented in this encounter [facility] 12-26-2022 Miscellaneous Notes Request from pharmacy for [...] in this department one year follow up Donna Sahni documented in this encounter [facility] 08-13-2022 History of Present illness Narrative Pt is an 82 yo [...] kidney disease) stage 3, GFR 30-59 ml/min ([facility]) Diabetes mellitus type 2 in obese ([facility]) GERD (gastroesophageal reflux disease) Hyperlipidemia [...] follow up in 6 months Rossy Wright APRN.DEEPTHI documented in this encounter [facility] 08-03-2022 Miscellaneous Notes Lab results received and placed in provider's mailbox for review. Esther Quach MA Called and spoke with [facility] staff. Requested they fax lab results to our office. Will update once labs have been received. Esther Quach MA Patient spouse is calling Rossy Wright APRN.CNP today to request the office to call [facility] to receive the labs that were completed while patient was inpatient in the hospital in early July. She request Rossy Wright to review those labs and see if they will suffice for the upcoming OV on 08/13 [facility]: [phone] [place] fax [phone] Patient has been identified by name and birthdate. Person calling: spouse: Call patient at: at home [phone] (home) Was an appointment scheduled: No Closing statement: Results or non-symptom based questions: Thank you for calling [facility], your call will be returned within the next business day. Uyen Andino Ma documented in this encounter [facility] 07-04-2022 History of Present illness Narrative Images from the original note were not included. Heart [facility] [place] [facility] Department of Cardiovascular Medicine SECTION OF CLINICAL CARDIOLOGY OUTPATIENT VISIT DATE July 04, 2022 OUTPATIENT VISIT TYPE ESTABLISHED PRIMARY CARE PHYSICIAN: Michel Alcazar MD ([facility]) [address] [place] [address] REFERRING PHYSICIAN: SELF CHIEF COMPLAINT: Obstructive coronary artery disease complicated by myocardial infarction Ischemic cardiomyopathy Status post coronary artery bypass graft CRUSHER AND BLENDER OPERATOR-D placement Atrial fibrillation on Apixaban low dose complicated by gastrointestinal/ ?rectal bleed HISTORY OF PRESENT ILLNESS: Mr. Lanza is a 81 year old male who presents today for a cardiovascular medicine follow-up visit for the abovementioned. Past medical history # Obstructive coronary artery disease complicated by myocardial infarction (1984) and ischemic cardiomyopathy status post coronary artery bypass graft x4 in 2011 On clopidogrel 75 mg, atorvastatin 40 mg (LDL 43 in 09/2020) # Ischemic cardiomyopathy, reduced ejection fraction 2013 Status post CRUSHER AND BLENDER OPERATOR-D placement in 2013, replaced 10/2021 EF 32% in 2017 > EF 41% in 09/2021 - BB: Metoprolol succinate 50 mg daily - DAVID/ARB/ARNI: Lisinopril 5 mg daily - MARTHA: Aldactone 12.5 mg daily - Hydral/ISDN: Isosorbide mononitrate 30 mg daily - SGTL2: - - Diuretic: Furosemide 20 mg daily # Atrial fibrillation [id number] Anticoagulation with Apixaban 2.5 mg twice [...] for diagnostic colonoscopy on July 18 in [place]. Otherwise he does not have any complaints. reporting new onset short term memory loss. He is not active. Performs his basic activities of daily living. He denies chest pain, shortness of breath, orthopnea, cough, edema, palpitations, PND, lightheadedness or syncope. PAST MEDICAL HISTORY Diagnosis Date A-fib ([facility]) CAD (coronary artery disease) s/p CABG 4v, pacemaker CKD (chronic kidney disease) stage 3, GFR 30-59 ml/min ([facility]) Diabetes mellitus type 2 in obese ([facility]) GERD (gastroesophageal reflux disease) Hyperlipidemia [...] kidney problems Sulfa (Sulfonamide * Itching MEDICATIONS: GoToTagsUCH ULTRA TEST test strip once daily. USE [...] have personally reviewed the Electrocardiogram. IMPRESSION: Mr. Lanza is a 81 year old male with [...] MD PGY 2 Internal Medicine CONTACT INFORMATION: [facility] STAFF PHYSICIAN NOTE OF PERSONAL [...] SERVICE: 5:16 AM documented in this encounter [facility] 07-03-2022 Miscellaneous Notes Records received from [facility] by fax. Records uploaded to OPD and OnBase. Patient has a future appointment on 07/04/22. Date of last OV 10/04/21. Herb Sosa July 03, 2022 9:40 AM documented in this encounter [facility] 05-24-2022 Miscellaneous Notes Images from the original note were not included. FAXED COMPLETED/SIGNED FORM - [facility] May 23, 2022 Patient Contact Number: [phone] (home) [phone] (cell) Physician: Lakesha Sanchez MD Last Office Visit: 03/13/2022 Last Visit this dept: 10/04/2021 Next visit - 07/04/2022 Reason For Call: Received request from [facility] for patient to hold plavix for 7 days and for surgical clearance - colonoscopy. Place in physician's office for review and comment. Donna Torres, Admin III Clinical Cardiology J2-4 documented in this encounter [facility] 03-23-2022 Miscellaneous Notes Documentation scanned into EP outside records database. documented in this encounter [facility] 03-16-2022 Miscellaneous Notes Returned call, spoke with . Answered all questions at this time. Added pt on for device check in June while he is here for other appointments. Patients Alma Rosa segal. Has questions/concerns about device and wants to know if pt should send remote transmission. Can be reached at documented in this encounter [facility] 03-13-2022 Miscellaneous Notes See follow up message to Dr Sanchez's office. Will review with Dr Ivey when he is back in the office. Heidi Taylor RN March 12, 2022 Patient Contact Number: Spouse: [phone] (home) Dtr Saadia [phone](cell) Patient last seen within the last year: Yes Reason For Call: Mrs Lanza called to inform office that patient is in [facility]. He went to ER due to excessive bleeding from the rectum. There are concerns that patient is over anticoagulated. He is on both Plavix and Eliquis. Also concerns that bleeding may be due to hemorrhoids. Physician:Bret Ivey MD documented in this encounter [facility] 01-31-2022 Miscellaneous Notes Images from the original note were not included. The below labs have been filled out and placed in the outgoing mail as of 01/31/22. Ifeanyi Wright APRN.WORKING SECOND HAND You Please send lab req for renal panel, CBC, PTH and Vit D 25 Thanks Patient is calling in asking for labs to be mailed over to them. He will get them done some where locally. documented in this encounter [facility] 01-12-2022 Miscellaneous Notes Images from the original note were not included. Email sent to Desk F14 documented in this encounter [facility] 01-09-2022 Miscellaneous Notes Attempted to reach patient. Left message on patient home VM. Heidi Taylor RN January 08, 2022 Patient Contact Number: [phone] (home) [phone] (cell) Physician: Bret Calix MD Last Office [...] change. Should patient be referred to the [facility] clinic for evaluation? Donna Torres, Admin III Clinical Cardiology J2-4 documented in this encounter [facility] 12-29-2021 Miscellaneous Notes Request from pharmacy for refills as follows: Requested Prescriptions Pending Prescriptions Disp Refills clopidogrel (PLAVIX) 75 mg tablet 90 tablet 4 Sig: Take 1 tablet by mouth once daily. Last encounter with this provider 10/04/2021 Last office visit in this department was 10/04/2021 Next appointment in this department Visit date not found Donna Sahni documented in this encounter [facility] 12-19-2021 Miscellaneous Notes Mr Lanza was called today about an in-clinic check of his poor RV sensing. He will be coming into device clinic 12/21/2021 at 1pm. documented in this encounter [facility] 11-01-2021 Miscellaneous Notes Post Implant follow up call: Date: 11/01/2021 Name: Junior Lanza Is your incision: Red: No Open: No Swollen: No Draining: No Steri Strips: fell off If the device is an ICD, have you received any shocks: No Have you received your temporary or permanent ID card: No Do you have your f/u appointment: Yes Appointments for Next 60 Days Date Time Provider Location Dept Phone 11/30/2021 2:15 PM DEVICE CLINIC [facility] [phone] Any scheduling issues:No Questions moving forward: No Christiana Neumann documented in this encounter [facility] 10-20-2021 Miscellaneous Notes Patient's calling with questions about how to use cellphone like device they received in the mail with patients ICD. Caller conferenced to [facility] to page [employer] division manager provider for Dr. Bret Ivey. documented in this encounter [facility] 10-17-2021 Nurse Note THE FOLLOWING WAS EVALUATED [...] discussed with Physician, nurse practitioner or Physician certified anesthesiologist assistant upon discharge Instructions for transmitting EKG to Monitoring Center 3 month follow up instructions Contact number for information and questions Patient Evaluation: Verbalizes understanding Follow Up Plan: Follow up as directed by MD. Supplemental Material Given: Written Material Patient education regarding radiation exposure. Instructed By Penelope Truong RN. In Department of CARDIOLOGY. documented in this encounter [facility] 10-04-2021 History of Present illness Narrative Images from the original note were not included. [facility] [place] Chema Mckeon Department of Cardiovascular Medicine SECTION OF CLINICAL CARDIOLOGY OUTPATIENT VISIT DATE October 04, 2021 OUTPATIENT VISIT TYPE ESTABLISHED PRIMARY CARE PHYSICIAN: Michel Alcazar MD ([facility]) [address] [place] [address] REFERRING PHYSICIAN: Lakesha Sanchez [address] [facility] [address] CHIEF COMPLAINT: Follow up for hx of myocardial infarction, coronary artery disease, status post coronary bypass grafting, ischemic cardiomyopathy, abnormal stress test, chronic systolic heart failure HISTORY OF PRESENT ILLNESS: Mr. Lanza is a 81 year old male who [...] kidney disease) stage 3, GFR 30-59 ml/min ([facility]) Diabetes mellitus type 2 in obese ([facility]) GERD (gastroesophageal reflux disease) Hyperlipidemia [...] Electrocardiogram, Laboratory Testing and Echocardiogram. IMPRESSION: Mr. Lanza is a 81 year old male presents [...] CONTACT INFORMATION: Lakesha Sanchez M.D., F.A.C.C. Staff Corporate Scheduler [facility] Desk [address] [place] [address] Office [phone] extension [phone] Office Appointments: [phone] extension [phone] Medical Decision Making: Problems: Moderate: 2+ stable chronic illnesses Data: Unique test result(s) reviewed: 3+ Risk: Moderate: Drug management Medical Decision Making Level: 4 - Moderate documented in this encounter [facility] Evaluation note Diagnosis Cardiomyopathy, ischemic- Primary Other specified forms of chronic ischemic heart disease Chronic systolic congestive heart failure (HCC) Chronic systolic heart failure 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 Ischemic cardiomyopathy Other specified forms of chronic ischemic heart disease Chronic systolic CHF (congestive heart failure) (HCC) Chronic systolic heart failure PVC (premature ventricular contraction) Other premature beats [facility] Cardiomyopathy, ischemic- Primary Other specified forms of chronic ischemic heart disease [facility] Diagnosis Cardiomyopathy, ischemic- Primary Other specified forms of chronic ischemic heart disease Chronic systolic congestive heart failure (HCC) Chronic systolic heart failure 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 [facility] Diagnosis 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- Primary Cardiomyopathy, ischemic Other specified forms of chronic ischemic heart disease Bright red blood per rectum Hemorrhage of rectum and anus 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 Automatic implantable cardiac defibrillator in situ Atrial fibrillation, chronic (HCC) Atrial fibrillation [facility] Pacemaker- Primary Cardiac pacemaker in situ Chronic systolic congestive heart failure (HCC) Chronic systolic heart failure [facility] Diagnosis Benign hypertension with chronic kidney disease, stage III (HCC)- Primary Benign hypertensive kidney disease with chronic kidney disease stage I through stage IV, or unspecified Stage 3b chronic kidney disease (HCC) Type 2 diabetes mellitus with stage 3b chronic kidney disease, unspecified whether superintendent container terminal insulin use (HCC) Essential hypertension Unspecified essential hypertension [facility] Diagnosis Stage 3b chronic kidney disease (HCC)- Primary Type 2 diabetes mellitus with stage 3b chronic kidney disease, without long-term current use of insulin (HCC) Benign hypertension with chronic kidney disease, stage III (HCC) Benign hypertensive kidney disease with chronic kidney disease stage I through stage IV, or unspecified Hypoalbuminemia Other disorders of plasma protein metabolism [facility] Diagnosis Cardiomyopathy, ischemic- Primary Other specified forms of chronic ischemic heart disease [facility] Diagnosis Stage 3b chronic kidney disease (HCC)- Primary Type 2 diabetes mellitus with stage 3b chronic kidney disease, without long-term current use of insulin (HCC) [facility] Diagnosis 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- Primary Cardiomyopathy, ischemic Other specified forms of chronic ischemic heart disease PAF (paroxysmal atrial fibrillation) (HCC) Atrial fibrillation Chronic systolic heart failure (HCC) Chronic systolic heart failure Obesity, morbid (HCC) Morbid obesity [facility] Diagnosis PAF (paroxysmal atrial fibrillation) (HCC)- Primary Atrial fibrillation Pacemaker reprogramming/check Fitting and adjustment of cardiac pacemaker documented in this encounter [facility] note* Diagnosis Hypotension, unspecified hypotension type- Primary Pacemaker reprogramming/check Fitting and adjustment of cardiac pacemaker documented in this encounter [facility] note* Diagnosis Hospital discharge follow-up- Primary Other follow-up examination Primary hypertension Unspecified essential hypertension Benign hypertension with chronic kidney disease, stage III (HCC) Benign hypertensive kidney disease with chronic kidney disease stage I through stage IV, or unspecified 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 S/P CABG (coronary artery bypass graft) Postsurgical aortocoronary bypass status Cardiomyopathy, ischemic Other specified forms of chronic ischemic heart disease Chronic systolic heart failure (HCC) Chronic systolic heart failure Pacemaker reprogramming/check Fitting and adjustment of cardiac pacemaker documented in this encounter [facility] note* Diagnosis 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/HCC)- Primary Essential hypertension, benign (CMS/HCC) Essential hypertension, benign Diabetic polyneuropathy associated with type 2 diabetes mellitus (CMS/HCC) Chronic systolic heart failure ([facility]/HCC) Chronic systolic heart failure BPH without urinary obstruction CKD stage 3b, GFR 30-44 ml/min ([facility]/HCC) Peripheral vascular disease in diabetes mellitus (CMS/HCC) Type 2 diabetes mellitus with diabetic polyneuropathy ([facility]/HCC) documented in this encounter [facility] note* Diagnosis Hemorrhoids, unspecified hemorrhoid type- Primary External hemorrhoids External hemorrhoids without mention of complication documented in this encounter [facility] note* Diagnosis 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/HCC)- Primary Essential hypertension, benign (CMS/HCC) Essential hypertension, benign Diabetic polyneuropathy associated with type 2 diabetes mellitus (CMS/HCC) Chronic systolic heart failure (CMS/HCC) Chronic systolic heart failure BPH without urinary obstruction CKD stage 3b, GFR 30-44 ml/min ([facility]/HCC) Peripheral vascular disease in diabetes mellitus (CMS/HCC) Type 2 diabetes mellitus with hyperglycemia, without long-term current use of insulin (CMS/HCC)- Primary Essential hypertension, benign (CMS/HCC) Essential hypertension, benign Diabetic polyneuropathy associated with type 2 diabetes mellitus (CMS/HCC) Chronic systolic heart failure (CMS/HCC) Chronic systolic heart failure BPH without urinary obstruction [facility] Diagnosis 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 Automatic implantable cardiac defibrillator in situ S/P CABG (coronary artery bypass graft) Postsurgical aortocoronary bypass status Atrial fibrillation, chronic (HCC) Atrial fibrillation [facility] Diagnosis Pacemaker reprogramming/check Fitting and adjustment of cardiac pacemaker [facility] Diagnosis Neoplasm of unspecified behavior of bone, soft tissue, and skin- Primary Diffuse photodamage of skin Other chronic dermatitis due to solar radiation Seborrheic keratosis Other seborrheic keratosis [facility] Diagnosis Basal cell carcinoma of nose- Primary Basal cell carcinoma of skin of other and unspecified parts of face [facility] Diagnosis 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- Primary OPENED IN ERROR To allow closing an encounter opened in error (used in SmartSet) 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 [facility] Diagnosis 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, unspecified vessel or lesion type- Primary Stage 3 chronic kidney disease, unspecified whether stage 3a or 3b CKD (HCC) Permanent atrial fibrillation (HCC) Atrial fibrillation Type 2 diabetes mellitus without complication, without long-term current use of insulin (HCC) Benign prostatic hyperplasia, unspecified whether lower urinary tract symptoms present Preop exam for internal medicine Other specified pre-operative examination 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 [facility] Diagnosis Basal cell carcinoma of nose Basal cell carcinoma of skin of other and unspecified parts of face [facility] Diagnosis Basal cell carcinoma (BCC) of skin of face, unspecified part of face- Primary documented in this encounter [facility] for referral (narrative)* Outpatient Procedure (Routine) - Pending Review Specialty Diagnoses / Procedures Referred By Contac t Referred To Contact [facility] Diagnoses Cardiomyopathy, ischemic Procedures ECG COMPLETE ECG ROUTINE ECG W/LEAST 12 LDS W/I&R La Nena Yee APRN.DEEPTHI [address], [address] [place] [id number] [facility] [place] [address] [place] [id number] Referral ID Status Reason Start Date Expiration Date Visits Requested Visits Authorized [id number] Pending Review Auto-Generat ed Referral 11/06/2021 11/06/2022 1 1 [facility] for referral (narrative)* Outpatient Procedure (Routine) - Authorized Specialty Diagnoses / Procedures Referred By Contac t Referred To Contact [facility] [place] Diagnoses Pacemaker Chronic systolic congestive heart failure (HCC) Procedures ECG COMPLETE ECG ROUTINE ECG W/LEAST 12 LDS W/I&R Bret Ivey MD [address] [place] [id number] [facility] [place] [id number] Referral ID Status Reason Start Date Expiration Date Visits Requested Visits Authorized [id number] Authorized Auto-Generat ed Referral 08/03/2022 08/03/2023 1 1 [facility] for referral (narrative)* Outpatient Procedure (Routine) - Pending Review Specialty Diagnoses / Procedures Referred By Contac t Referred To Contact [facility] [place] Diagnoses 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 Procedures ECG COMPLETE ECG ROUTINE ECG W/LEAST 12 LDS W/I&R Lakesha Sanchez MD [address] [place] [address] [facility] [place] [address] [place] [id number] Referral ID Status Reason Start Date Expiration Date Visits Requested Visits Authorized [id number] Pending Review Auto-Generat ed Referral 10/15/2023 10/14/2024 1 1 * Transition of Care (Routine) - Ref Not Required Specialty Diagnoses / Procedures Referred By Contac t Referred To [facility] [place] Diagnoses 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 Procedures CARDIOVASCULAR MEDICINE OP FOLLOW UP APPT ORDER Lakesha Sanchez MD [address] [place] [address] [facility] [address] [place] [address] Referral ID Status Reason Start Date Expiration Date Visits Requested Visits Authorized [id number] Ref Not Required PCP Requested Referral 10/14/2024 1 1 * Transition of Care (Routine) - Ref Not Required Specialty Diagnoses / Procedures Referred By Contac t Referred To [facility] Diagnoses 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 Procedures CARDIOVASCULAR MEDICINE OP FOLLOW UP APPT ORDER Lakesha Sanchez MD [address] [place] [address] [facility] [address] [place] [address] Referral ID Status Reason Start Date Expiration Date Visits Requested Visits Authorized [id number] Ref Not Required PCP Requested Referral 07/16/2024 10/14/2024 1 1 * Outpatient Procedure (Routine) - Pending Review Specialty Diagnoses / Procedures Referred By Contac t Referred To [facility] Diagnoses 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 Procedures ECG COMPLETE ECG ROUTINE ECG W/LEAST 12 LDS W/I&R Lakesha Sanchez MD [address] [place] [address] [facility] [address] [place] [address] Referral ID Status Reason Start Date Expiration Date Visits Requested Visits Authorized [id number] Pending Review Auto-Generat ed Referral 10/15/2023 10/14/2024 1 1 [facility] for referral (narrative)* Outpatient Procedure (Routine) - Authorized Specialty Diagnoses / Procedures Referred By Contac t Referred To Contact [facility] [place] Diagnoses PAF (paroxysmal atrial fibrillation) (HCC) Procedures ECG COMPLETE ECG ROUTINE ECG W/LEAST 12 LDS W/I&R Lyle De La Rosa MD [address] [place] [address] [address] Referral ID Status Reason Start Date Expiration Date Visits Requested Visits Authorized [id number] Authorized Auto-Generat ed Referral 11/18/2023 11/17/2024 1 1 [facility] for referral (narrative)* Outpatient Procedure (Routine) - New Request Specialty Diagnoses / Procedures Referred By Contac t Referred To Contact [facility] [place] Diagnoses Hypotension, unspecified hypotension type Procedures ECG COMPLETE ECG ROUTINE ECG W/LEAST 12 LDS W/I&R Lorena Machado APRN.CNP [address] [place] [address] [address] Referral ID Status Reason Start Date Expiration Date Visits Requested Visits Authorized [id number] New Request Auto-Generat ed Referral 02/26/2024 02/25/2025 1 1 * Transition of Care (Routine) - Ref Not Required Specialty Diagnoses / Procedures Referred By Contac t Referred To Contact [facility] Procedures CARDIOVASCULAR MEDICINE OP FOLLOW UP APPT ORDER Lorena Machado APRN.CNP [address] [place] [address] [facility] [address] [place] [address] Referral ID Status Reason Start Date Expiration Date Visits Requested Visits Authorized [id number] Ref Not Required PCP Requested Referral 03/28/2024 02/25/2025 1 1 [facility] for referral (narrative)* Outpatient Procedure (Routine) - Closed Specialty Diagnoses / Procedures Referred By Contac t Referred To Contact [facility] [place] Diagnoses Pacemaker reprogramming/check Procedures CARDIAC IMPLANTABLE DEVICE CHECK Card Ep [facility] Main [address] [place] [address] [address] Referral ID Status Reason Start Date Expiration Date V isits Requested Visits Authorized [id number] Closed Auto-Generate d Referral 11/18/2023 11/17/2024 1 1 [facility] for visit Narrative* Outpatient Procedure (Routine) - Closed Specialty Diagnoses / Procedures Referred By Keiko t Referred To Contact [facility] Diagnoses Pacemaker reprogramming/check Procedures CARDIAC IMPLANTABLE DEVICE CHECK Card Ep [facility] Main [address] [place] [address] [facility] [address] [place] [id number] Referral ID Status Reason Start Date Expiration Date V isits Requested Visits Authorized [id number] Closed Auto-Generate d Referral 11/18/2023 11/17/2024 1 1 [facility] Summary Purpose Family History No Family History Records FoundNo Family History Records FoundNo Family History Records FoundNo Family History Records FoundNo Family History Records Found Advance Directives Documents on File Type Date Recorded Patient Repairer General Expl anation Advance Directive(s) 06/10/2024 11:22 AM Date Activated Date Inactivated Comments 02/26/2024 11:39 PM 03/06/2024 7:12 PM Question Answer Comments Full Code Order Discussed With: Patient Documents on File Type Date Recorded Patient Repairer General Expl anation Advance Directive(s) 10/06/2021 8:17 AM Documents on File Type Date Recorded Patient Repairer General Expl anation Advance Directive(s) 10/06/2021 8:17 AM Date Activated Date Inactivated Comments 02/26/2024 11:39 PM Question Answer Comments Full Code Order Discussed With: Patient Date Activated Date Inactivated Comments 02/26/2024 11:39 PM 03/06/2024 7:12 PM Documents on File Type Date Recorded Patient Repairer General Expl anation Advance Directive(s) 06/10/2024 11:22 AM Reason for Referral Specialty Diagnoses / Procedures Referred By Contac t Referred To Contact Procedures CARDIOVASCULAR MEDICINE OP FOLLOW UP APPT ORDER Lyle De La Rosa MD [address] [place] [address] Referral ID Status Reason Start Date Expiration Date Visits Requested Visits Authorized [id number] Ref Not Required PCP Requested Referral 03/27/2023 03/26/2024 1 1 Specialty Diagnoses / Procedures Referred By Contac t Referred To Contact [facility] Procedures CARDIOVASCULAR MEDICINE OP FOLLOW UP APPT ORDER Denisse Howard PA-C [address] [place] [address] [facility] [place] [address] [place] [address] Referral ID Status Reason Start Date Expiration Date Visits Requested Visits Authorized [id number] Ref Not Required PCP Requested Referral 03/19/2025 1 1 Specialty Diagnoses / Procedures Referred By Contac t Referred To Contact [facility] Procedures CARDIOVASCULAR MEDICINE OP FOLLOW UP APPT ORDER Lyle De La Rosa MD [address] [place] [address] [facility] [place] [address] [place] [address] Referral ID Status Reason Start Date Expiration Date Visits Requested Visits Authorized [id number] Authorized PCP Requested Referral 02/05/2025 05/06/2025 1 1 Specialty Diagnoses / Procedures Referred By Contac t Referred To Contact Dermatology Diagnoses Basal cell carcinoma of nose Procedures MOHS OFFICE/OUTPATIENT [facility] 60 MINUTES Hever Palmer MD [address] [place] [address] [place] [address] Referral ID Status Reason Start Date Expiration Date Visits Requested Visits Authorized [id number] Authorized PCP Requested Referral 05/22/2024 05/22/2025 1 1 Specialty Diagnoses / Procedures Referred By Contac t Referred To Contact Radiation Oncology Diagnoses Basal cell carcinoma (BCC) of skin of face, unspecified part of face Procedures RAD/ONC CONSULT OFFICE/OUTPATIENT [facility] 60 MINUTES Bart Majano MD [address] [place] [id number] Referral ID Status Reason Start Date Expiration Date Visits Requested Visits Authorized [id number] Authorized PCP Requested Referral 06/15/2024 06/15/2025 1 1 Specialty Diagnoses / Procedures Referred By Contac t Referred To Contact CT IMAGING Diagnoses Basal cell carcinoma (BCC) of skin of face, unspecified part of face Procedures CT NECK SOFT TISSUE W IVCON CT SOFT TISSUE NECK W/CONTRAST MATERIAL Bart Majano MD [address] [place] [id number] Imaging [place] [address] Referral ID Status Reason Start Date Expiration Date Visits Requested Visits Authorized [id number] Authorized Auto-Generat ed Referral 06/15/2024 07/15/2025 1 1 Additional Source Comments (unrecognized sect ion and content) No Status Records FoundNo Status Records FoundNo Status Records FoundNo Status Records FoundNo Status Records Found INFORMATION SOURCE (unrecogn ized section and content) DATE CREATED AUTHOR 04/23/2020 [facility] DATE CREATED AUTHOR AUTHOR'S ORGANIZ ATION 07/27/2022 [facility] DATE CREATED AUTHOR AUTHOR'S ORGANIZ ATION 03/17/2024 [facility] DATE CREATED AUTHOR AUTHOR'S ORGANIZ ATION 05/01/2024 [facility] dical [facility] DATE CREATED AUTHOR AUTHOR'S ORGANIZ ATION 06/15/2024 [facility] Source Comments (unrecognize d section and content) In the event this informatio n is protected by the Federal Confidentiality of Alcohol and Drug Abuse Patient Records regulations: The Federal rules restrict any use of the information to criminally investigate or prosecute any alcohol or drug abuse patient.[facility]In the event this information is protected by the Federal Confidentiality of Alcohol and Drug Abuse Patient Records regulations: The Federal rules restrict any use of the information to criminally investigate or prosecute any alcohol or drug abuse patient.[facility] CampusIn the event this information is protected by the Federal Confidentiality of Alcohol and Drug Abuse Patient Records regulations: The Federal rules restrict any use of the information to criminally investigate or prosecute any alcohol or drug abuse patient.[facility] CampusIn the event this information is protected by the Federal Confidentiality of Alcohol and Drug Abuse Patient Records regulations: The Federal rules restrict any use of the information to criminally investigate or prosecute any alcohol or drug abuse patient.[facility] CampusIn the event this information is protected by the Federal Confidentiality of Alcohol and Drug Abuse Patient Records regulations: The Federal rules restrict any use of the information to criminally investigate or prosecute any alcohol or drug abuse patient.[facility] CampusIn the event this information is protected by the Federal Confidentiality of Alcohol and Drug Abuse Patient Records regulations: The Federal rules restrict any use of the information to criminally investigate or prosecute any alcohol or drug abuse patient.[facility] CampusIn the event this information is protected by the Federal Confidentiality of Alcohol and Drug Abuse Patient Records regulations: The Federal rules restrict any use of the information to criminally investigate or prosecute any alcohol or drug abuse patient.[facility] CampusIn the event this information is protected by the Federal Confidentiality of Alcohol and Drug Abuse Patient Records regulations: The Federal rules restrict any use of the information to criminally investigate or prosecute any alcohol or drug abuse patient.[facility] CampusIn the event this information is protected by the Federal Confidentiality of Alcohol and Drug Abuse Patient Records regulations: The Federal rules restrict any use of the information to criminally investigate or prosecute any alcohol or drug abuse patient.[facility] CampusIn the event this information is protected by the Federal Confidentiality of Alcohol and Drug Abuse Patient Records regulations: The Federal rules restrict any use of the information to criminally investigate or prosecute any alcohol or drug abuse patient.[facility] CampusIn the event this information is protected by the Federal Confidentiality of Alcohol and Drug Abuse Patient Records regulations: The Federal rules restrict any use of the information to criminally investigate or prosecute any alcohol or drug abuse patient.[facility] CampusIn the event this information is protected by the Federal Confidentiality of Alcohol and Drug Abuse Patient Records regulations: The Federal rules restrict any use of the information to criminally investigate or prosecute any alcohol or drug abuse patient.[facility] CampusIn the event this information is protected by the Federal Confidentiality of Alcohol and Drug Abuse Patient Records regulations: The Federal rules restrict any use of the information to criminally investigate or prosecute any alcohol or drug abuse patient.[facility] CampusIn the event this information is protected by the Federal Confidentiality of Alcohol and Drug Abuse Patient Records regulations: The Federal rules restrict any use of the information to criminally investigate or prosecute any alcohol or drug abuse patient.[facility] CampusIn the event this information is protected by the Federal Confidentiality of Alcohol and Drug Abuse Patient Records regulations: The Federal rules restrict any use of the information to criminally investigate or prosecute any alcohol or drug abuse patient.[facility] CampusIn the event this information is protected by the Federal Confidentiality of Alcohol and Drug Abuse Patient Records regulations: The Federal rules restrict any use of the information to criminally investigate or prosecute any alcohol or drug abuse patient.[facility] CampusIn the event this information is protected by the Federal Confidentiality of Alcohol and Drug Abuse Patient Records regulations: The Federal rules restrict any use of the information to criminally investigate or prosecute any alcohol or drug abuse patient.[facility] CampusIn the event this information is protected by the Federal Confidentiality of Alcohol and Drug Abuse Patient Records regulations: The Federal rules restrict any use of the information to criminally investigate or prosecute any alcohol or drug abuse patient.[facility] CampusIn the event this information is protected by the Federal Confidentiality of Alcohol and Drug Abuse Patient Records regulations: The Federal rules restrict any use of the information to criminally investigate or prosecute any alcohol or drug abuse patient.[facility] CampusIn the event this information is protected by the Federal Confidentiality of Alcohol and Drug Abuse Patient Records regulations: The Federal rules restrict any use of the information to criminally investigate or prosecute any alcohol or drug abuse patient.[facility] CampusIn the event this information is protected by the Federal Confidentiality of Alcohol and Drug Abuse Patient Records regulations: The Federal rules restrict any use of the information to criminally investigate or prosecute any alcohol or drug abuse patient.[facility] CampusIn the event this information is protected by the Federal Confidentiality of Alcohol and Drug Abuse Patient Records regulations: The Federal rules restrict any use of the information to criminally investigate or prosecute any alcohol or drug abuse patient.[facility] CampusIn the event this information is protected by the Federal Confidentiality of Alcohol and Drug Abuse Patient Records regulations: The Federal rules restrict any use of the information to criminally investigate or prosecute any alcohol or drug abuse patient.[facility] CampusIn the event this information is protected by the Federal Confidentiality of Alcohol and Drug Abuse Patient Records regulations: The Federal rules restrict any use of the information to criminally investigate or prosecute any alcohol or drug abuse patient.[facility] CampusIn the event this information is protected by the Federal Confidentiality of Alcohol and Drug Abuse Patient Records regulations: The Federal rules restrict any use of the information to criminally investigate or prosecute any alcohol or drug abuse patient.[facility] CampusIn the event this information is protected by the Federal Confidentiality of Alcohol and Drug Abuse Patient Records regulations: The Federal rules restrict any use of the information to criminally investigate or prosecute any alcohol or drug abuse patient.[facility] CampusIn the event this information is protected by the Federal Confidentiality of Alcohol and Drug Abuse Patient Records regulations: The Federal rules restrict any use of the information to criminally investigate or prosecute any alcohol or drug abuse patient.[facility] CampusIn the event this information is protected by the Federal Confidentiality of Alcohol and Drug Abuse Patient Records regulations: The Federal rules restrict any use of the information to criminally investigate or prosecute any alcohol or drug abuse patient.[facility] CampusIn the event this information is protected by the Federal Confidentiality of Alcohol and Drug Abuse Patient Records regulations: The Federal rules restrict any use of the information to criminally investigate or prosecute any alcohol or drug abuse patient.[facility] CampusIn the event this information is protected by the Federal Confidentiality of Alcohol and Drug Abuse Patient Records regulations: The Federal rules restrict any use of the information to criminally investigate or prosecute any alcohol or drug abuse patient.[facility] CampusIn the event this information is protected by the Federal Confidentiality of Alcohol and Drug Abuse Patient Records regulations: The Federal rules restrict any use of the information to criminally investigate or prosecute any alcohol or drug abuse patient.[facility] CampusIn the event this information is protected by the Federal Confidentiality of Alcohol and Drug Abuse Patient Records regulations: The Federal rules restrict any use of the information to criminally investigate or prosecute any alcohol or drug abuse patient.[facility] CampusIn the event this information is protected by the Federal Confidentiality of Alcohol and Drug Abuse Patient Records regulations: The Federal rules restrict any use of the information to criminally investigate or prosecute any alcohol or drug abuse patient.[facility] CampusIn the event this information is protected by the Federal Confidentiality of Alcohol and Drug Abuse Patient Records regulations: The Federal rules restrict any use of the information to criminally investigate or prosecute any alcohol or drug abuse patient.[facility] CampusIn the event this information is protected by the Federal Confidentiality of Alcohol and Drug Abuse Patient Records regulations: The Federal rules restrict any use of the information to criminally investigate or prosecute any alcohol or drug abuse patient.[facility] CampusIn the event this information is protected by the Federal Confidentiality of Alcohol and Drug Abuse Patient Records regulations: The Federal rules restrict any use of the information to criminally investigate or prosecute any alcohol or drug abuse patient.[facility] CampusIn the event this information is protected by the Federal Confidentiality of Alcohol and Drug Abuse Patient Records regulations: The Federal rules restrict any use of the information to criminally investigate or prosecute any alcohol or drug abuse patient.[facility] CampusIn the event this information is protected by the Federal Confidentiality of Alcohol and Drug Abuse Patient Records regulations: The Federal rules restrict any use of the information to criminally investigate or prosecute any alcohol or drug abuse patient.[facility] CampusIn the event this information is protected by the Federal Confidentiality of Alcohol and Drug Abuse Patient Records regulations: The Federal rules restrict any use of the information to criminally investigate or prosecute any alcohol or drug abuse patient.[facility] CampusIn the event this information is protected by the Federal Confidentiality of Alcohol and Drug Abuse Patient Records regulations: The Federal rules restrict any use of the information to criminally investigate or prosecute any alcohol or drug abuse patient.[facility] CampusIn the event this information is protected by the Federal Confidentiality of Alcohol and Drug Abuse Patient Records regulations: The Federal rules restrict any use of the information to criminally investigate or prosecute any alcohol or drug abuse patient.[facility] CampusIn the event this information is protected by the Federal Confidentiality of Alcohol and Drug Abuse Patient Records regulations: The Federal rules restrict any use of the information to criminally investigate or prosecute any alcohol or drug abuse patient.[facility] CampusIn the event this information is protected by the Federal Confidentiality of Alcohol and Drug Abuse Patient Records regulations: The Federal rules restrict any use of the information to criminally investigate or prosecute any alcohol or drug abuse patient.[facility] CampusIn the event this information is protected by the Federal Confidentiality of Alcohol and Drug Abuse Patient Records regulations: The Federal rules restrict any use of the information to criminally investigate or prosecute any alcohol or drug abuse patient.[facility] CampusIn the event this information is protected by the Federal Confidentiality of Alcohol and Drug Abuse Patient Records regulations: The Federal rules restrict any use of the information to criminally investigate or prosecute any alcohol or drug abuse patient.[facility] CampusIn the event this information is protected by the Federal Confidentiality of Alcohol and Drug Abuse Patient Records regulations: The Federal rules restrict any use of the information to criminally investigate or prosecute any alcohol or drug abuse patient.[facility] CampusIn the event this information is protected by the Federal Confidentiality of Alcohol and Drug Abuse Patient Records regulations: The Federal rules restrict any use of the information to criminally investigate or prosecute any alcohol or drug abuse patient.[facility] CampusIn the event this information is protected by the Federal Confidentiality of Alcohol and Drug Abuse Patient Records regulations: The Federal rules restrict any use of the information to criminally investigate or prosecute any alcohol or drug abuse patient.[facility] CampusIn the event this information is protected by the Federal Confidentiality of Alcohol and Drug Abuse Patient Records regulations: The Federal rules restrict any use of the information to criminally investigate or prosecute any alcohol or drug abuse patient.[facility] CampusIn the event this information is protected by the Federal Confidentiality of Alcohol and Drug Abuse Patient Records regulations: The Federal rules restrict any use of the information to criminally investigate or prosecute any alcohol or drug abuse patient.[facility] CampusIn the event this information is protected by the Federal Confidentiality of Alcohol and Drug Abuse Patient Records regulations: The Federal rules restrict any use of the information to criminally investigate or prosecute any alcohol or drug abuse patient.[facility] CampusIn the event this information is protected by the Federal Confidentiality of Alcohol and Drug Abuse Patient Records regulations: The Federal rules restrict any use of the information to criminally investigate or prosecute any alcohol or drug abuse patient.[facility] CampusIn the event this information is protected by the Federal Confidentiality of Alcohol and Drug Abuse Patient Records regulations: The Federal rules restrict any use of the information to criminally investigate or prosecute any alcohol or drug abuse patient.[facility] CampusIn the event this information is protected by the Federal Confidentiality of Alcohol and Drug Abuse Patient Records regulations: The Federal rules restrict any use of the information to criminally investigate or prosecute any alcohol or drug abuse patient.[facility] CampusIn the event this information is protected by the Federal Confidentiality of Alcohol and Drug Abuse Patient Records regulations: The Federal rules restrict any use of the information to criminally investigate or prosecute any alcohol or drug abuse patient.[facility] CampusIn the event this information is protected by the Federal Confidentiality of Alcohol and Drug Abuse Patient Records regulations: The Federal rules restrict any use of the information to criminally investigate or prosecute any alcohol or drug abuse patient.[facility] CampusIn the event this information is protected by the Federal Confidentiality of Alcohol and Drug Abuse Patient Records regulations: The Federal rules restrict any use of the information to criminally investigate or prosecute any alcohol or drug abuse patient.[facility] CampusIn the event this information is protected by the Federal Confidentiality of Alcohol and Drug Abuse Patient Records regulations: The Federal rules restrict any use of the information to criminally investigate or prosecute any alcohol or drug abuse patient.[facility] CampusIn the event this information is protected by the Federal Confidentiality of Alcohol and Drug Abuse Patient Records regulations: The Federal rules restrict any use of the information to criminally investigate or prosecute any alcohol or drug abuse patient.[facility] CampusIn the event this information is protected by the Federal Confidentiality of Alcohol and Drug Abuse Patient Records regulations: The Federal rules restrict any use of the information to criminally investigate or prosecute any alcohol or drug abuse patient.[facility] CampusIn the event this information is protected by the Federal Confidentiality of Alcohol and Drug Abuse Patient Records regulations: The Federal rules restrict any use of the information to criminally investigate or prosecute any alcohol or drug abuse patient.[facility] CampusIn the event this information is protected by the Federal Confidentiality of Alcohol and Drug Abuse Patient Records regulations: The Federal rules restrict any use of the information to criminally investigate or prosecute any alcohol or drug abuse patient.[facility] CampusIn the event this information is protected by the Federal Confidentiality of Alcohol and Drug Abuse Patient Records regulations: The Federal rules restrict any use of the information to criminally investigate or prosecute any alcohol or drug abuse patient.[facility] CampusIn the event this information is protected by the Federal Confidentiality of Alcohol and Drug Abuse Patient Records regulations: The Federal rules restrict any use of the information to criminally investigate or prosecute any alcohol or drug abuse patient.[facility] CampusIn the event this information is protected by the Federal Confidentiality of Alcohol and Drug Abuse Patient Records regulations: The Federal rules restrict any use of the information to criminally investigate or prosecute any alcohol or drug abuse patient.[facility] Care Teams (unrecognized sec tion and content) Wash Plant Operator Relationship Specialty Start Date End Date Michel Alcazar PCP - General Family Practice 04/22/17 Simon Souza [address] [phone] Cardiology 09/04/16 Lakesha Sanchez MD Primary Staff Physician Cardiology 08/05/18 Wash Plant Operator Relationship Specialty Start Date End Date Michel Alcazar PCP - General Family Practice 04/22/17 Simon Souza [id number] [place] [phone] Cardiology 09/04/16 Lakesha Sanchez MD Primary Staff Physician Cardiology 08/05/18 Wash Plant Operator Relationship Specialty Start Date End Date Michel Alcazar PCP - General Family Practice 04/22/17 [facility] [address] Cardiology 09/04/16 Lakesha Sanchez MD Primary Staff Physician Cardiology 08/05/18 Wash Plant Operator Relationship Specialty Start Date End Date Michel Alcazar PCP - General Family Practice 04/22/17 Sánchez Souza[address] [address] Cardiology 09/04/16 Lakesha Sanchez MD Primary Staff Physician Cardiology 08/05/18 Wash Plant Operator Relationship Specialty Start Date End Date Michel Alcazar PCP - General Family Practice 04/22/17 Simon Souza [address] [phone] Cardiology 09/04/16 Lakesha Sanchez MD Primary Staff Physician Cardiology 08/05/18 Wash Plant Operator Relationship Specialty Start Date End Date Michel Alcazar PCP - General Family Practice 04/22/[address] [address] Cardiology 09/04/16 Lakesha Sanchez MD Primary Staff Physician Cardiology 08/05/18 Wash Plant Operator Relationship Specialty Start Date End Date Michel Alcazar PCP - General Family Practice 04/22/[address] [phone] Cardiology 09/04/16 Lakesha Sanchez MD Primary Staff Physician Cardiology 08/05/18 Wash Plant Operator Relationship Specialty Start Date End Date Michel Alcazar PCP - General Family Practice 04/22/[address] [phone] Cardiology 09/04/16 Lakesha Sanchez MD Primary Staff Physician Cardiology 08/05/18 Wash Plant Operator Relationship Specialty Start Date End Date Michel Alcazar PCP - General Family Practice 04/22/[address] [phone] Cardiology 09/04/16 Lakesha Sanchez MD Primary Staff Physician Cardiology 08/05/18 Wash Plant Operator Relationship Specialty Start Date End Date Michel Alcazar PCP - General Family Practice 04/22/[address] [phone] Cardiology 09/04/16 Lakesha Sanchez MD Primary Staff Physician Cardiology 08/05/18 Wash Plant Operator Relationship Specialty Start Date End Date Michel Alcazar PCP - General Family Practice 04/22/[address] [phone] Cardiology 09/04/16 Lakesha Sanchez MD Primary Staff Physician Cardiology 08/05/18 Wash Plant Operator Relationship Specialty Start Date End Date Michel Alcazar PCP - General Family Medicine 04/22/[address] [phone] Cardiology 09/04/16 Lakesha Sanchez MD Primary Staff Physician Cardiology 08/05/18 Wash Plant Operator Relationship Specialty Start Date End Date Michel Alcazar PCP - General Family Medicine 04/22/17 [facility] [address] [phone] Cardiology 09/04/16 Lakesha Sanchez MD Primary Staff Physician Cardiology 08/05/18 Wash Plant Operator Relationship Specialty Start Date End Date Michel Alcazar PCP - General Family Medicine 04/22/17 [facility] [address] [place] [address] Cardiology 09/04/16 Lakesha Sanchez MD Primary Staff Physician Cardiology 08/05/18 Wash Plant Operator Relationship Specialty Start Date End Date Michel Alcazar [address] [place] [address] PCP - General Family Medicine 04/22/17 [facility] [address] [place] [address] Cardiology 09/04/16 [place] [address] [phone] Primary Staff Physician Cardiology 08/05/18 Wash Plant Operator Relationship Specialty Start Date End Date Michel Alcazar [address] [place] [address] PCP - General Family Medicine 04/22/17 [facility] [address] [place] [address] Cardiology 09/04/16 Lakesha Sanchez [place] [id number] [place] [phone] Primary Staff Physician Cardiology 08/05/18 Wash Plant Operator Relationship Specialty Start Date End Date Ottoniel Michel Chandler [address] [place] [phone] PCP - General Family Medicine 04/22/17 [facility] [address] [phone] Cardiology 09/04/16 Lakesha Sanchez MD [address] [place] [phone] Primary Staff Physician Cardiology 08/05/18 Wash Plant Operator Relationship Specialty Start Date End Date OttonielMichel Ramesh [address] [place] [phone] PCP - General Family Medicine 04/22/17 [facility] [phone] Cardiology 09/04/16 Lakesha Sanchez MD [address] [place] [phone] Primary Staff Physician Cardiology 08/05/18 Wash Plant Operator Relationship Specialty Start Date End Date OttonielMichel Ramesh [address] [phone] PCP - General Family Medicine 04/22/17 [facility] Haridas B [phone] [place], [place] [phone] Cardiology 09/04/16 Lakesha Sanchez MD [address] [place] [phone] Primary Staff Physician Cardiology 08/05/18 Wash Plant Operator Relationship Specialty Start Date End Date Michel Alcazar [address] [place] [phone] PCP - General Family Medicine 04/22/17 [facility] [phone] Cardiology 09/04/16 Lakesha Sanchez MD [address] [place] [phone] Primary Staff Physician Cardiology 08/05/18 Wash Plant Operator Relationship Specialty Start Date End Date Michel Alcazar [address] [place] [phone] PCP - General Family Medicine 04/22/17 [facility] [address] [place] [phone] Cardiology 09/04/16 Lakesha Sanchez MD [address] [place] [phone] Primary Staff Physician Cardiology 08/05/18 Wash Plant Operator Relationship Specialty Start Date End Date Michel Alcazar [address] [place] [phone] PCP - General Family Medicine 04/22/17 Simon Souza [address] [place] [phone] Cardiology 09/04/16 Lakesha Sanchez MD [address] [place] [address] [phone] Primary Staff Physician Cardiology 08/05/18 Wash Plant Operator Relationship Specialty Start Date End Date Michel Alcazar [address] [place] [address] [phone] PCP - General Family Medicine 04/22/17 Simon Souza [address] [place] [phone] Cardiology 09/04/16 Lakesha Sanchez MD [address] [place] [address] [phone] Primary Staff Physician Cardiology 08/05/18 Wash Plant Operator Relationship Specialty Start Date End Date Michel Alcazar [address] [place] [address] [phone] PCP - General Family Medicine 04/22/17 Simon Souza [address] [place] [address] [phone] Cardiology 09/04/16 Lakesha Sanchez MD [address] [place] [address] [phone] Primary Staff Physician Cardiology 08/05/18 Wash Plant Operator Relationship Specialty Start Date End Date Michel Alcazar [address] [place] [phone] PCP - General Family Medicine 04/22/17 Simon Souza [address] [place] [address] [phone] Cardiology 09/04/16 Lakesha Sanchez MD [address] [place] [phone] Primary Staff Physician Cardiology 08/05/18 Wash Plant Operator Relationship Specialty Start Date End Date Michel Alcazar [address] [place] [phone] PCP - General Family Medicine 04/22/17 Simon Souza [address] [place] [address] [phone] Cardiology 09/04/16 Lakesha Sanchez MD [address] [place] [address] [phone] Primary Staff Physician Cardiology 08/05/18 Wash Plant Operator Relationship Specialty Start Date End Date Michel Alcazar [address] [place] [phone] PCP - General Family Medicine 04/22/17 Simon Souza [address] [place] [phone] Cardiology 09/04/16 Lakesha Sanchez MD [address] [place] [phone] Primary Staff Physician Cardiology 08/05/18 Wash Plant Operator Relationship Specialty Start Date End Date Michel Alcazar [address] [place] [phone] PCP - General Family Medicine 04/22/17 Simon Souza [address] [place] [phone] Cardiology 09/04/16 Lakesha Sanchez MD [address] [place] [phone] Primary Staff Physician Cardiology 08/05/18 Wash Plant Operator Relationship Specialty Start Date End Date Michel Alcazar [address] [place] [phone] PCP - General Family Medicine 04/22/17 Simon Souza [address] [place] [phone] Cardiology 09/04/16 Lakesha Sanchez MD [address] [place] [phone] Primary Staff Physician Cardiology 08/05/18 Wash Plant Operator Relationship Specialty Start Date End Date Michel Alcazar [address] [place] [phone] PCP - General Family Medicine 04/22/17 Simon Souza [address] [place] [phone] Cardiology 09/04/16 Lakesha Sanchez MD [address] [place] [phone] Primary Staff Physician Cardiology 08/05/18 Wash Plant Operator Relationship Specialty Start Date End Date Michel Alcazar [address] [place] [phone] PCP - General Family Medicine 04/22/17 Simon Souza [address] [place] [phone] Cardiology 09/04/16 Lakesha Sanchez MD [address] [place] [phone] Primary Staff Physician Cardiology 08/05/18 Wash Plant Operator Relationship Specialty Start Date End Date Michel Alcazar [address] [place] [phone] PCP - General Family Medicine 04/22/17 Simon Souza [address] [place] [address] [phone] Cardiology 09/04/16 Lakesha Sanchez MD [address] [place] [address] [phone] Primary Staff Physician Cardiology 08/05/18 Wash Plant Operator Relationship Specialty Start Date End Date Michel Alcazar MD [address] [place] [phone] PCP - General Family Medicine 03/20/23 Wash Plant Operator Relationship Specialty Start Date End Date Michel Alcazar MD [address] [place] [phone] PCP - General Family Medicine 03/20/23 Wash Plant Operator Relationship Specialty Start Date End Date Michel Alcazar MD [address] [place] [phone] PCP - General Family Medicine 04/22/17 Simon Souza [address] [place] [address] [phone] Cardiology 09/04/16 Lakesha Sanchez MD [address] [place] [phone] Primary Staff Physician Cardiology 08/05/18 Quiana Zavala [facility] [address] [place] [address] Transitional Care Pharmacist Pharmacy 03/09/24 04/09/24 Wash Plant Operator Relationship Specialty Start Date End Date Michel Alcazar MD [address] [place] [phone] PCP - General Family Medicine 04/22/17 Simon Souza [address] [place] [address] [phone] Cardiology 09/04/16 Lakesha Sanchez MD [address] [place] [phone] Primary Staff Physician Cardiology 08/05/18 Quiana Zavala [facility] [address] [place] [address] Transitional Care Pharmacist Pharmacy 03/09/24 04/09/24 Wash Plant Operator Relationship Specialty Start Date End Date Michel Alcazar MD [address] [place] [phone] PCP - General Family Medicine 04/22/17 Simon Souza [address] [place] [address] [phone] Cardiology 09/04/16 Lakesha Sanchez MD [address] [place] [address] [phone] Primary Staff Physician Cardiology 08/05/18 Quiana Zavala [facility] [address] [place] [address] Transitional Care Pharmacist Pharmacy 03/09/24 04/09/24 Wash Plant Operator Relationship Specialty Start Date End Date Michel Alcazar MD [address] [place] [phone] PCP - General Family Medicine 03/20/23 Wash Plant Operator Relationship Specialty Start Date End Date Michel Alcazar MD [address] [place] [phone] PCP - General Family Medicine 04/22/17 Simon Souza [address] [place] [phone] Cardiology 09/04/16 Lakesha Sanchez MD [address] [place] [phone] Primary Staff Physician Cardiology 08/05/18 Quiana Zavala [facility] [address] [place] [address] Transitional Care Pharmacist Pharmacy 03/09/24 04/09/24 Wash Plant Operator Relationship Specialty Start Date End Date Michel Alcazar MD [address] [place] [phone] PCP - General Family Medicine 03/20/23 Wash Plant Operator Relationship Specialty Start Date End Date Michel Alcazar MD [address] [place] [phone] PCP - General Family Medicine 04/22/17 Simon Souza [address] [place] [phone] Cardiology 09/04/16 Lakesha Sanchez MD [address] [place] [phone] Primary Staff Physician Cardiology 08/05/18 Wash Plant Operator Relationship Specialty Start Date End Date Michel Alcazar MD [address] [place] [phone] PCP - General Family Medicine 03/20/23 Wash Plant Operator Relationship Specialty Start Date End Date Michel Alcazar MD [address] [place] [phone] PCP - General Family Medicine 03/20/23 Wash Plant Operator Relationship Specialty Start Date End Date Michel Alcazar MD [address] [place] [address] [phone] PCP - General Family Medicine 04/22/17 Simon Souza [address] [place] [address] [phone] Cardiology 09/04/16 Lakesha Sanchez MD [address] [place] [phone] Primary Staff Physician Cardiology 08/05/18 Wash Plant Operator Relationship Specialty Start Date End Date Michel Alcazar MD [address] [place] [phone] PCP - General Family Medicine 04/22/17 Simon Souza [address] [place] [phone] Cardiology 09/04/16 Lakesha Sanchez MD [address] [place] [address] [phone] Primary Staff Physician Cardiology 08/05/18 Wash Plant Operator Relationship Specialty Start Date End Date Michel Alcazar MD [address] [place] [address] [phone] PCP - General Family Medicine 04/22/17 Simon Souza [address] [place] [address] [phone] Cardiology 09/04/16 Lakesha Sanchez MD [address] [place] [address] [phone] Primary Staff Physician Cardiology 08/05/18 Wash Plant Operator Relationship Specialty Start Date End Date Michel Alcazar MD [address] [place] [address] [phone] PCP - General Family Medicine 04/22/17 Simon Souza [address] [place] [address] [phone] Cardiology 09/04/16 Lakesha Sanchez MD [address] [place] [phone] Primary Staff Physician Cardiology 08/05/18 Wash Plant Operator Relationship Specialty Start Date End Date Michel Alcazar MD [facility] [place] [phone] PCP - General Family Medicine 03/20/23 Wash Plant Operator Relationship Specialty Start Date End Date Michel Alcazar MD [address] [place] [address] [phone] PCP - General Family Medicine 04/22/17 Simon Souza [address] [place] [phone] Cardiology 09/04/16 Lakesha Sanchez MD [address] [place] [phone] Primary Staff Physician Cardiology 08/05/18 Wash Plant Operator Relationship Specialty Start Date End Date Michel Alcazar MD [address] [place] [address] [phone] PCP - General Family Medicine 04/22/17 Simon Souza [address] [place] [phone] Cardiology 09/04/16 Lakesha Sanchez MD [address] [place] [phone] Primary Staff Physician Cardiology 08/05/18 Wash Plant Operator Relationship Specialty Start Date End Date Michel Alcazar MD [address] [place] [phone] PCP - General Family Medicine 04/22/17 Simon Souza [address] [place] [phone] Cardiology 09/04/16 Lakesha Sanchez MD [address] [place] [phone] Primary Staff Physician Cardiology 08/05/18 Wash Plant Operator Relationship Specialty Start Date End Date Michel Alcazar MD [address] [place] [phone] PCP - General Family Medicine 04/22/17 Simon Souza [address] [place] [phone] Cardiology 09/04/16 Lakesha Sanchez MD [address] [place] [phone] Primary Staff Physician Cardiology 08/05/18 Wash Plant Operator Relationship Specialty Start Date End Date Michel Alcazar MD [address] [place] [phone] PCP - General Family Medicine 04/22/17 Simon Souza [address] [facility] [address] [place] [address] Cardiology 09/04/16 [place] [address] [facility] [address] [place] [address] Primary Staff Physician Cardiology 08/05/18 Reason [...] atorvastatin Reason Comments lab orders faxed to [facility] Reason Comments Results Reason Comments Follow Up Ckd Reason Comments Follow Up Reason Comments Cardiology Follow Up Specialty Diagnoses / Procedures Referred By Contac t Referred To Contact HOSP INPATIENT Diagnoses [facility] [address] [place] [address] Referral ID Status Reason Start Date Expiration Date Visits Re quested Visits Authorized [id number] 1 1 Reason Comments Follow Up Phone Call RC follow up call a ll clear. Reason Onset Date Comments Transition Of Care 03/09/2024 [facility] Pharmacy- Hospital discharge 03/06/24 Reason Onset Date Comments Refill Request 03/12/2024 Reason Onset Date Comments Refill Request 03/30/2024 Reason Comments Med Refill Reason Comments New Patient Reason Comments Follow-up 6m Reason Comments Results Reason Onset Date Comments Opened In Error 05/26/2024 Reason Comments Question Reason Comments Mohs Specialty Diagnoses / Procedures Referred By Contac t Referred To Contact Dermatology Diagnoses Basal cell carcinoma of nose Procedures MOHS OFFICE/OUTPATIENT NEW HIGH MDM 60 MINUTES Hever Palmer MD [address] [place] [address] Referral ID Status Reason Start Date Expiration Date V isits Requested Visits Authorized [id number] Closed PCP Requested Referral 05/22/2024 05/22/2025 1 1 Reason Comments New Patient FOR RECORDS PERTAINING TO PATIENTS WHO ARE [...] BE BASED ON THE PRIMARY CLINICAL RECORDS. [facility] [employer] [facility]. provides no warranty or guarantee of the accuracy or completeness of information in this document.
[2024-06-17 11:01] LABS: Estimated GFR (African America 51 (>=60 mL/min/1.73m^2); Estimated GFR (Non-African Ame 42 (>=60 mL/min/1.73m^2)
== END 2024-06-17 09:40 | disposition home or self-care (01) ==
LOC: LAB 09:41
PROVIDERS: PCP Family Medicine
DX: C44.310 Basal cell carcinoma of skin of unspecified parts of face (principal)
CPT/HCPCS: 36415; 82565

== ENCOUNTER 2024-06-17 09:45 | Outpatient (OUT) | payer MEDICARE, OTHER, SELFPAY ==
[2024-06-17 10:36] LABS: Estimated Average Glucose 134 mg/dL
[2024-06-17 10:53] LABS: Glycohemoglobin A1C 6.3 % (4.5-6.2)
== END 2024-06-17 09:46 | disposition home or self-care (01) ==
LOC: LAB 09:48
PROVIDERS: PCP Family Medicine; Visit Provider Family Medicine
DX: C44.310 Basal cell carcinoma of skin of unspecified parts of face (principal); E11.65 Type 2 diabetes mellitus with hyperglycemia
CPT/HCPCS: 36415; 82565; 83036